=== PATIENT | female | born 1950 | race Caucasian/White ===

== ENCOUNTER 2022-11-07 08:18 | Outpatient (OUT) | payer MEDICARE, SELFPAY ==
[2022-11-07 09:18] LABS: Hematocrit 39.5 % (36.0-48.0); Hemoglobin 12.7 g/dL (12.0-16.0)
[2022-11-07 09:38] LABS: Creatinine Urine Random 129.87 mg/dL (20.00-300.00); Total Protein Urine Random 26.5 mg/dL (<=11.9)
[2022-11-07 09:57] LABS: Albumin Level 3.4 g/dL (3.4-5.0); Anion Gap 13.3; BUN Creatinine Ratio 14.2; Calcium 8.8 mg/dL (8.5-10.1); Carbon Dioxide 27.9 mmol/L (21.0-32.0); Chloride 105 mmol/L (98-107); Estimated GFR (African America 54 (>=60); Estimated GFR (Non-African Ame 44 (>=60); Glucose 102 mg/dL (74-106); Magnesium 2.1 mg/dL (1.8-2.4); Phosphorus 3.6 mg/dL (2.6-4.7); Potassium 4.2 mmol/L (3.5-5.1); Sodium 142 mmol/L (136-145); Uric Acid 4.6 mg/dL (2.6-6.0)
[2022-11-07 13:10] LABS: Bilirubin Urine NEGATIVE (NEGATIVE); Blood Urine TRACE-I (NEGATIVE); Clarity Urine CLEAR (CLEAR); Color Urine LT. YELLOW (YELLOW); Glucose Urine UA NEGATIVE (NEGATIVE); Ketones Urine NEGATIVE (NEGATIVE); Leukocyte Esterase Urine MODERATE (NEGATIVE); Nitrite Urine NEGATIVE (NEGATIVE); Protein Urine NEGATIVE (NEG/TRACE); Specific Gravity Urine 1.025 (1.005-1.025); Urobilinogen Urine 0.2 EU/dL (0.2-1.0); pH Urine 5.5 (5.0-9.0)
[2022-11-07 13:18] LABS: Bacteria Urine TRACE #/HPF (NONE SEEN); Cast Seen? NONE SEEN #/LPF (NONE SEEN); Crystals Seen? None Seen #/HPF (None Seen); Mucus Urine NONE SEEN (NONE SEEN); RBC Urine 0-2 #/HPF (0-2); Squamous Epithelial Cell Urine FEW #/LPF (NONE/RARE); WBC Urine 0-2 #/HPF (NONE SEEN)
[2022-11-08 14:12] LABS: PTH, Intact 47 pg/mL (15-65)
== END 2022-11-07 08:19 | disposition home or self-care (01) ==
LOC: LAB 08:24
PROVIDERS: PCP Nurse Practitioner Family; Visit Provider Internal Medicine
DX: I12.9 Hypertensive chronic kidney disease with stage 1 through stage 4 chronic kidney disease, or unspecified chronic kidney disease (principal); N18.32 Chronic kidney disease, stage 3b; N25.81 Secondary hyperparathyroidism of renal origin; D63.1 Anemia in chronic kidney disease; E78.5 Hyperlipidemia, unspecified; R31.29 Other microscopic hematuria; E61.1 Iron deficiency
CPT/HCPCS: 36415; 80069; 81001; 82306; 82570; 82728; 83540; 83550; 83735; 83970; 84156; 84550; 85014; 85018

== ENCOUNTER 2023-02-14 10:10 | Emergency (ER) | payer MEDICARE, SELFPAY ==
[2023-02-14 10:13] VITALS: BP 154/87; PULSE 82; RESP 20; TEMP 36.8; O2SAT 96; BMI 28.3
--- NOTE | 2023-02-14 10:20 | PC.NURSE ---
Complains of pain to top of right foot. No redness, bruising or swelling noted. Patient denies injury and states it just hurt when I woke up .
--- NOTE | 2023-02-14 10:22 | XR_ITS ---
The [address] [address] Patient Name: KAREEN HADLEY MRN: [id number] date: 1950 Sex: F Assigned Patient Location: ED.MAIN Current Patient Location: ED.MAIN Accession/Order Number: [id number] Exam Date: 02/14/2023 10:30 Report Date: 02/14/2023 10:49 At the request of: MICHAELA CASTILLO Procedure: XR foot RT min 3V PROCEDURE: XR foot RT min 3V HISTORY: mid foot pain ; no known injury COMPARISON: None. FINDINGS: BONES:No fracture, acute abnormality, or significant arthropathy. SOFT TISSUES:No visible soft tissue swelling. EFFUSION:None visible. OTHER: Negative. XR/XR foot RT min 3V IMPRESSION: 1. No acute bone abnormality. 2. No significant degenerative changes. Electronically authenticated by: STEPHEN ROBLES Date: 02/14/2023 10:49
--- NOTE | 2023-02-14 10:23 | ED.EXTPRO1 ---
HPI - Extremity Problem General Chief complaint: Extremity Problem, Nontraumatic Stated complaint: RIGHT FOOT PAIN, MOM TRAUMATIC Time Seen by Provider: 02/14/23 10:18 Source: patient Mode of arrival: walk-in Limitations: no limitations History of Present Illness HPI Narrative: yesterday the patient got up from a nap and when she went to stand up she felt sharp pain to the top of the right foot. She said that the pain has conitinued to occur intermittently since then but it does hurt every time I walk . It is painful to the touch but not swollen, red and has no rash. No recent injury. She took nothing for the pain. Related Data Home Medications Medication Instructions Recorded Confirmed alendronate 70 mg tablet 70 mg PO .every week 02/14/23 02/14/23 bupropion HCl 300 mg 24 hr tablet, 300 mg PO QWEEK 02/14/23 02/14/23 extended release levothyroxine 150 mcg tablet 150 mcg PO DAILY 02/14/23 02/14/23 losartan 100 mg tablet 100 mg PO DAILY 02/14/23 02/14/23 lovastatin 40 mg tablet 40 mg PO BEDTIME 02/14/23 02/14/23 montelukast 10 mg tablet 10 mg PO DAILY 02/14/23 02/14/23 omeprazole 40 mg capsule,delayed 40 mg PO DAILY 02/14/23 02/14/23 release raloxifene 60 mg tablet 60 mg PO DAILY 02/14/23 02/14/23 tizanidine 4 mg tablet 4 mg PO DAILY 02/14/23 02/14/23 trazodone 50 mg tablet 50 mg PO BEDTIME 02/14/23 02/14/23 Allergies Allergy/AdvReac Type Severity Reaction Status Date / Time No Known Drug Allergies Allergy Verified 02/14/23 10:17 Exam Narrative Exam Narrative: Nurses notes and vital signs reviewed and patient is not hypoxic. afebrile General: Well-appearing and in no apparent distress. Skin: Warm, dry, no pallor noted. No rash. Cardiovascular: Normal peripheral perfusion. Respiratory: No accessory muscle use or respiratory distress. Musculoskeletal: Focal tenderness to the dorsal mid foot. No swelling, erythema or warmth. No right heel tenderness or tenderness along the metatarsals of the right foot. Right ankle and toes of the right foot with normal ROM, no calf or popliteal tenderness, no lower extremity edema/swelling Neurological: A&O x4. No cranial nerve dysfunction observed. No truncal ataxia. Moves all extremities. Sensation intact. Psychiatric: Cooperative and interactive. Normal mood and affect. Constitutional Vital Signs, click to edit/add: Last Vital Signs Temp 98.2 F 02/14/23 10:13 Pulse 82 02/14/23 10:13 Resp 20 02/14/23 10:13 BP 154/87 H 02/14/23 10:13 Pulse Ox 96 02/14/23 10:13 O2 Del Method Room Air 02/14/23 10:13 Course Vital Signs Vital signs: Vital Signs Temperature 98.2 F 02/14/23 10:13 Pulse Rate 82 02/14/23 10:13 Respiratory Rate 20 02/14/23 10:13 Blood Pressure 154/87 H 02/14/23 10:13 Pulse Oximetry 96 02/14/23 10:13 Oxygen Delivery Method Room Air 02/14/23 10:13 Temperature 98.2 F 02/14/23 10:13 Pulse Rate 82 02/14/23 10:13 Respiratory Rate 20 02/14/23 10:13 Blood Pressure 154/87 H 02/14/23 10:13 Pulse Oximetry 96 02/14/23 10:13 Oxygen Delivery Method Room Air 02/14/23 10:13 MDM - Extremity (Nontraumatic) MDM Narrative Medical decision making narrative: uric acid negative. Elevated CRP and ESR. Xrays without any worrisome changes. Patient informed of results and diagnosis discussed. Patient given oral motrin in ED and then IM solumedrol before discharge home. She can take tylenol or additional ibuprofen for the pain, which should improve with rest. Lab Data Attestation: I reviewed the patient's lab results. Labs: Lab Results 02/14/23 Range/Units 10:34 ESR 94 H (<=30) mm/hr Uric Acid 5.1 (2.6-6.0) mg/dL C-Reactive Protein 1.1 H (<=1.0) mg/dL Imaging Data xr foot: Radiologist's impression: Patient Name: KAREEN HADLEY MRN: [id number] date: 1950 Sex: F Assigned Patient Location: ED.MAIN Current Patient Location: ED.MAIN Accession/Order Number: [id number] Exam Date: 02/14/2023 10:30 Report Date: 02/14/2023 10:49 At the request of: MICHAELA CASTILLO Procedure: XR foot RT min 3V PROCEDURE: XR foot RT min 3V HISTORY: mid foot pain ; no known injury COMPARISON: None. FINDINGS: BONES:No fracture, acute abnormality, or significant arthropathy. SOFT TISSUES:No visible soft tissue swelling. EFFUSION:None visible. OTHER: Negative. IMPRESSION: 1. No acute bone abnormality. 2. No significant degenerative changes. Electronically authenticated by: STEPHEN ROBLES Date: 02/14/2023 10:49 Discharge Plan Discharge Chief Complaint: Extremity Problem, Nontraumatic Clinical Impression: Acute foot pain Patient Disposition: Home, Self-Care Time of Disposition Decision: 11:06 Prescriptions / Home Meds: No Action alendronate 70 mg tablet 70 mg PO .every week bupropion HCl 300 mg tablet extended release 24 hr 300 mg PO QWEEK levothyroxine 150 mcg tablet 150 mcg PO DAILY losartan 100 mg tablet 100 mg PO DAILY lovastatin 40 mg tablet 40 mg PO BEDTIME montelukast 10 mg tablet 10 mg PO DAILY omeprazole 40 mg capsule,delayed release(DR/EC) 40 mg PO DAILY tizanidine 4 mg tablet 4 mg PO DAILY trazodone 50 mg tablet 50 mg PO BEDTIME raloxifene 60 mg tablet 60 mg PO DAILY Instructions: Arthralgia (ED) Stand Alone Forms: Portal Instructions Referrals: DAYANA LOPEZ [Primary Care Provider] - 1 week
[2023-02-14 10:45] LABS: Erythrocyte Sedimentation Rate 94 mm/hr (<=30)
[2023-02-14] MEDS: IBUPROFEN 600 MG TABLET PO (10:49)
[2023-02-14 10:54] LABS: C Reactive Protein 1.1 mg/dL (<=1.0); Uric Acid 5.1 mg/dL (2.6-6.0)
[2023-02-14] MEDS: METHYLPREDNISOLONE SOD SUCC PF 125 MG/2 ML VIAL IM (11:16)
== END 2023-02-14 11:29 | disposition home or self-care (01) ==
PROVIDERS: Emergency Provider Emergency Medicine; PCP Nurse Practitioner Family
DX: M79.671 Pain in right foot (principal); Z79.899 Other long term (current) drug therapy; Z79.890 Hormone replacement therapy
CPT/HCPCS: 36415; 73630; 84550; 85652; 86140; 96372; 99284; J2930

== ENCOUNTER 2023-03-04 12:07 | Emergency (ER) | payer MEDICARE, SELFPAY ==
[2023-03-04] VITALS (20 sets, daily range): BP systolic 156; BP diastolic 97; PULSE 89–118; RESP 8–26; TEMP 36.6; O2SAT 97; BMI 28.2
--- NOTE | 2023-03-04 12:27 | XR_ITS ---
The [address] [address] Patient Name: KAREEN HADLEY MRN: [id number] date: 1950 Sex: F Assigned Patient Location: ER Current Patient Location: ER Accession/Order Number: [id number] Exam Date: 03/04/2023 13:06 Report Date: 03/04/2023 13:17 At the request of: HOLLIS REYNOLDS Procedure: XR chest 1V EXAM: XR chest 1V at 1305 hours HISTORY: cough, shortness of breath, Covid two weeks ago COMPARISON: None. TECHNIQUE: AP upright portable chest X FINDINGS: The heart is not enlarged and the vasculature is not distended. No acute infiltrate, effusion or pneumothorax is identified. The osseous structures are grossly intact. XR/XR chest 1V IMPRESSION: No acute infiltrate or evidence of cardiac decompensation. Direct comparison with a previous study may be helpful in determining the chronicity of these findings. Electronically authenticated by: KAMI MART Date: 03/04/2023 13:17
--- NOTE | 2023-03-04 12:27 | ECG_ITS ---
The [facility] Test Date: 2023-03-04 Pat Name: KAREEN HADLEY Department: Room: - Gender: Female [employer]: : 1950 Requested By: DAYANA LOPEZ Order Number: [id number] Reading MD: KEM LAMBERT Measurements Intervals [place] Rate: 90 P: 19 [place]: 156 QRS: -20 QRSD: 84 T: 30 QT: 340 QTc: 387 Interpretive Statements 1100 Sinus rhythm 1108 Marked sinus arrhythmia 3113 Cannot rule out anterior myocardial infarction, probably old 9150 abnormal ECG No previous ECG available for comparison Electronically Signed On 03-05-2023 6:55:02 EST by KEM LAMBERT
--- NOTE | 2023-03-04 12:28 | ED_ITS ---
HPI - URI/Sore Throat General Chief Complaint: Nausea/Vomiting/Diarrhea Stated Complaint: NAUSEA Time Seen by Provider: 03/04/23 12:21 Source: patient Limitations: no limitations History of Present Illness HPI Narrative: 72-year-old female presents for cough and shortness of breath. About two weeks ago she tested positive for Covid and seemed to be recovering. Three days ago she developed this cough and shortness of breath and she's been vomiting. She's been coughing up white phlegm, no hemoptysis. Related Data Home Medications Medication Instructions Recorded Confirmed alendronate 70 mg tablet 70 mg PO .every week 02/14/23 02/14/23 bupropion HCl 300 mg 24 hr tablet, 300 mg PO QWEEK 02/14/23 02/14/23 extended release levothyroxine 150 mcg tablet 150 mcg PO DAILY 02/14/23 02/14/23 losartan 100 mg tablet 100 mg PO DAILY 02/14/23 02/14/23 lovastatin 40 mg tablet 40 mg PO BEDTIME 02/14/23 02/14/23 montelukast 10 mg tablet 10 mg PO DAILY 02/14/23 02/14/23 omeprazole 40 mg capsule,delayed 40 mg PO DAILY 02/14/23 02/14/23 release raloxifene 60 mg tablet 60 mg PO DAILY 02/14/23 02/14/23 tizanidine 4 mg tablet 4 mg PO DAILY 02/14/23 02/14/23 trazodone 50 mg tablet 50 mg PO BEDTIME 02/14/23 02/14/23 Allergies Allergy/AdvReac Type Severity Reaction Status Date / Time No Known Drug Allergies Allergy Verified 03/04/23 12:12 Review of Systems ROS Narrative A ten point review of systems is negative except as noted above. Exam Narrative Exam Narrative: Nurses note and vital signs reviewed and patient is not hypoxic. General: The patient coughs frequently. She is not in respiratory distress. Skin: Warm, dry, no pallor noted. There is no rash noted. Head: Normocephalic, atraumatic Eye: Normal conjunctiva, no drainage Ears, Nose, Mouth, and Throat: oral mucosa is moist. Nares patent. Cardiovascular: Regular Rate and Rhythm Respiratory: Patient is in no distress, no accessory muscle use, lungs are clear to auscultation, no wheezing, rales or rhonchi Back: non-tender, no CVA tenderness bilaterally to percussion. GI: nontender Musculoskeletal: The patient has no evidence of calf tenderness, no pitting edema, symmetrical pulses noted bilaterally Neurological: A&O, normal speech Psychiatric: Cooperative Constitutional Vital Signs, click to edit/add: Last Vital Signs Temp 98 F 03/04/23 15:22 Pulse 91 H 03/04/23 15:30 Resp 25 H 03/04/23 15:30 BP 156/97 H 03/04/23 12:13 Pulse Ox 97 03/04/23 12:12 O2 Del Method Room Air 03/04/23 12:12 Course Vital Signs Vital signs: Vital Signs Pulse Rate 118 H 03/04/23 12:12 Respiratory Rate 18 03/04/23 12:12 Blood Pressure 156/97 H 03/04/23 12:12 Pulse Oximetry 97 03/04/23 12:12 Oxygen Delivery Method Room Air 03/04/23 12:12 Temperature 98 F 03/04/23 15:22 Pulse Rate 91 H 03/04/23 15:30 Respiratory Rate 25 H 03/04/23 15:30 Blood Pressure 156/97 H 03/04/23 12:13 Pulse Oximetry 97 03/04/23 12:12 Oxygen Delivery Method Room Air 03/04/23 12:12 MDM - URI/Sore Throat MDM Narrative Medical decision making narrative: blood work is appropriate. No evidence of pulmonary embolism but on the CAT scan she has numerous pulmonary nodules. Case is discussed with Dr. Ledbetter and follow- up is arranged with him. Most likely the nodules are due to the very recent Covid. She does not need to be admitted to the hospital this point and an antibiotic is not indicated. Treatment diagnosis and follow-up were discussed with the patient. Differential Diagnosis Differential diagnosis: Likely upper respiratory infection, viral infection, bronchitis and other (pulmonary embolism, pneumothorax) Lab Data Attestation: I reviewed the patient's lab results. Labs: Lab Results 03/04/23 03/04/23 Range/Units 12:47 13:18 WBC 13.9 H (4.0-11.0) 10^3/uL RBC 4.26 (4.20-5.40) 10^6/uL Hgb 11.9 L (12.0-16.0) g/dL Hct 37.3 (36.0-48.0) % MCV 87.6 (81.0-99.0) fL MCH 27.9 (26.7-34.0) pg MCHC 31.9 (29.9-35.2) g/dL RDW 13.2 (11.0-15.0) % Plt Count 353 (150-450) 10^3/uL MPV 10.5 (9.5-13.5) fL Neut % (Auto) 67.8 (43.0-75.0) % Lymph % (Auto) 14.5 L (20.5-60.0) % [place] % (Auto) 7.2 (1.7-12.0) % Eos % (Auto) 9.4 H (0.9-7.0) % Baso % (Auto) 0.7 (0.2-2.0) % Neut # (Auto) 9.4 H (1.4-6.5) 10^3/uL Lymph # (Auto) 2.0 (1.2-3.8) 10^3/uL [place] # (Auto) 1.0 H (0.3-0.8) 10^3/uL Eos # (Auto) 1.3 H (0.0-0.7) 10^3/uL Baso # (Auto) 0.1 (0.0-0.1) 10^3/uL Abs Immat Gran (auto) 0.06 H (0.00-0.03) 10^3/uL Imm/Tot Granulo (auto) 0.4 (0.0-0.5) % D-Dimer 0.86 H* (<=0.59) mg/L FEU Sodium 137 (136-145) mmol/L Potassium 4.2 (3.5-5.1) mmol/L Chloride 99 (98-107) mmol/L Carbon Dioxide 25.5 (21.0-32.0) mmol/L Anion Gap 16.7 BUN 13.0 (7.0-18.0) mg/dL Creatinine 1.32 H (0.55-1.02) mg/dL Est GFR ( Amer) 48 L (>=60) Est GFR (Non-Af Amer) 40 L (>=60) BUN/Creatinine Ratio 9.8 Glucose 101 (74-106) mg/dL Calcium 8.3 L (8.5-10.1) mg/dL Urine Color Yellow (YELLOW) Urine Clarity Clear (CLEAR) Urine pH 7.0 (5.0-9.0) Ur Specific [place] 1.015 (1.005-1.025) Urine Protein 30 A (NEG/TRACE) mg/dL Urine Glucose (UA) Negative (NEGATIVE) mg/dL Urine Ketones Trace A (NEGATIVE) mg/dL Urine Occult Blood Moderate A (NEGATIVE) Urine Nitrite Negative (NEGATIVE) Urine Bilirubin Negative (NEGATIVE) Urine Urobilinogen 1.0 (0.2-1.0) EU/dL Ur Leukocyte Esterase Negative (NEGATIVE) Urine RBC 2-5 A (0-2) #/HPF Urine WBC 0-2 A (NONE SEEN) #/HPF Ur Squamous Epith Cells Few A (NONE/RARE) #/LPF Urine Crystals None seen (None Seen) #/HPF Urine Bacteria None seen (NONE SEEN) #/HPF Urine Casts None seen (NONE SEEN) #/LPF Urine Mucus Trace A (NONE SEEN) Imaging Data chest x-ray, CAT scan: Radiologist's impression: Procedure: CT angio chest EXAM: CT angio chest HISTORY: short of breath, recent Covid, elevated d-dimer COMPARISON: 12/27/2018 TECHNIQUE: Axial CT images were obtained of the chest with intravenous contrast in the pulmonary arterial phase. Multiplanar, MIP and 3D reconstructions were performed. CHEST FINDINGS: Lungs/Pleura: There are numerous pulmonary nodules throughout the lungs. The dominant nodules in the right middle lobe measuring 2.2 x 1.5 cm. Other pulmonary nodules are smaller in size, for example in the right lower lobe on image 65 of series 5 a nodule measures 8.7 mm. No pleural effusion or pneumothorax. Pulmonary Arteries: No evidence of pulmonary embolus. Cardiovascular: The heart is normal in size. The aorta is unremarkable. Pericardium: No effusion. Mediastinum: Unremarkable. Lymph Nodes: Multiple mediastinal and hilar lymph nodes are abnormally enlarged. For example, in the precarinal region a lymph node measures 2.2 x 1.4 cm. An infracarinal lymph node measures 3.4 x 1.7 cm. A right hilar lymph node measures 1.5 x 1.4 cm. Bones: No acute osseous abnormality. Soft tissues: Unremarkable. Upper Abdomen: There is a small hiatal hernia. IMPRESSION: 1. No pulmonary embolus identified. 2. Numerous pulmonary nodules throughout the lungs, concerning for possible metastatic disease. Alternatively, septic emboli can be considered in the appropriate clinical setting. The dominant nodule is in the right middle lobe, and in the setting of malignancy may represent the site of primary disease. 3. Multiple enlarged mediastinal and hilar lymph nodes, possibly due to metastatic disease or reactive changes. Electronically authenticated by: KANDACE LAMAS Date: 03/04/2023 14:36 Procedure: XR chest 1V EXAM: XR chest 1V at 1305 hours HISTORY: cough, shortness of breath, Covid two weeks ago COMPARISON: None. TECHNIQUE: AP upright portable chest X FINDINGS: The heart is not enlarged and the vasculature is not distended. No acute infiltrate, effusion or pneumothorax is identified. The osseous structures are grossly intact. IMPRESSION: No acute infiltrate or evidence of cardiac decompensation. Direct comparison with a previous study may be helpful in determining the chronicity of these findings. Electronically authenticated by: KAMI MART Date: 03/04/2023 13:17 Discharge Plan Discharge Chief Complaint: Nausea/Vomiting/Diarrhea Clinical Impression: Indeterminate pulmonary nodules Patient Disposition: Home, Self-Care Time of Disposition Decision: 15:43 Condition: Good Mode of Transportation: Private Vehicle Prescriptions / Home Meds: No Action alendronate 70 mg tablet 70 mg PO .every week bupropion HCl 300 mg tablet extended release 24 hr 300 mg PO QWEEK levothyroxine 150 mcg tablet 150 mcg PO DAILY losartan 100 mg tablet 100 mg PO DAILY lovastatin 40 mg tablet 40 mg PO BEDTIME montelukast 10 mg tablet 10 mg PO DAILY omeprazole 40 mg capsule,delayed release(DR/EC) 40 mg PO DAILY tizanidine 4 mg tablet 4 mg PO DAILY trazodone 50 mg tablet 50 mg PO BEDTIME raloxifene 60 mg tablet 60 mg PO DAILY Instructions: COVID-19 (Coronavirus Disease 2019) (ED), Long COVID (ED) Additional Instructions: Follow-up with Dr. Ledbetter Stand Alone Forms: Portal Instructions Referrals: DAYANA LOPEZ [Primary Care Provider] - 1 week
[2023-03-04] MEDS: 0.9 % SODIUM CHLORIDE 1,000 ML 1000 ML IV (12:53)
[2023-03-04] MEDS: ONDANSETRON PF 4 MG/2 ML VIAL IV (12:54)
[2023-03-04 13:01] LABS: Basophils Absolute Auto 0.1 10^3/uL (0.0-0.1); Basophils Percent Auto 0.7 % (0.2-2.0); Eosinophils Absolute Auto 1.3 10^3/uL (0.0-0.7); Eosinophils Percent Auto 9.4 % (0.9-7.0); Hematocrit 37.3 % (36.0-48.0); Hemoglobin 11.9 g/dL (12.0-16.0); Immature Granulocytes Abs Auto 0.06 10^3/uL (0.00-0.03); Immature Granulocytes Pct Auto 0.4 % (0.0-0.5); Lymphocytes Percent Auto 14.5 % (20.5-60.0); Mean Corpuscular HGB Conc 31.9 g/dL (29.9-35.2); Mean Corpuscular Hemoglobin 27.9 pg (26.7-34.0); Mean Corpuscular Volume 87.6 fL (81.0-99.0); Mean Platelet Volume 10.5 fL (9.5-13.5); Monocytes Percent Auto 7.2 % (1.7-12.0); Neutrophils Absolute Auto 9.4 10^3/uL (1.4-6.5); Neutrophils Percent Auto 67.8 % (43.0-75.0); Platelet Count 353 10^3/uL (150-450); Red Blood Count 4.26 10^6/uL (4.20-5.40); Red Cell Distribution Width 13.2 % (11.0-15.0); White Blood Count 13.9 10^3/uL (4.0-11.0)
[2023-03-04 13:11] LABS: Anion Gap 16.7; BUN Creatinine Ratio 9.8; Calcium 8.3 mg/dL (8.5-10.1); Carbon Dioxide 25.5 mmol/L (21.0-32.0); Chloride 99 mmol/L (98-107); Estimated GFR (African America 48 (>=60); Estimated GFR (Non-African Ame 40 (>=60); Glucose 101 mg/dL (74-106); Potassium 4.2 mmol/L (3.5-5.1); Sodium 137 mmol/L (136-145)
[2023-03-04 13:25] LABS: Bilirubin Urine NEGATIVE (NEGATIVE); Blood Urine MODERATE (NEGATIVE); Clarity Urine CLEAR (CLEAR); Color Urine YELLOW (YELLOW); Glucose Urine UA NEGATIVE (NEGATIVE); Ketones Urine TRACE mg/dL (NEGATIVE); Leukocyte Esterase Urine NEGATIVE (NEGATIVE); Nitrite Urine NEGATIVE (NEGATIVE); Protein Urine 30 mg/dL (NEG/TRACE); Specific Gravity Urine 1.015 (1.005-1.025)
--- NOTE | 2023-03-04 13:29 | CT_ITS ---
The [address] [address] Patient Name: KAREEN HADLEY MRN: [id number] date: 1950 Sex: F Assigned Patient Location: ER Current Patient Location: ER Accession/Order Number: [id number] Exam Date: 03/04/2023 13:50 Report Date: 03/04/2023 14:36 At the request of: HOLLIS REYNOLDS Procedure: CT angio chest EXAM: CT angio chest HISTORY: short of breath, recent Covid, elevated d-dimer COMPARISON: 12/27/2018 TECHNIQUE: Axial CT images were obtained of the chest with intravenous contrast in the pulmonary arterial phase. Multiplanar, MIP and 3D reconstructions were performed. CHEST FINDINGS: Lungs/Pleura: There are numerous pulmonary nodules throughout the lungs. The dominant nodules in the right middle lobe measuring 2.2 x 1.5 cm. Other pulmonary nodules are smaller in size, for example in the right lower lobe on image 65 of series 5 a nodule measures 8.7 mm. No pleural effusion or pneumothorax. Pulmonary Arteries: No evidence of pulmonary embolus. Cardiovascular: The heart is normal in size. The aorta is unremarkable. Pericardium: No effusion. Mediastinum: Unremarkable. Lymph Nodes: Multiple mediastinal and hilar lymph nodes are abnormally enlarged. For example, in the precarinal region a lymph node measures 2.2 x 1.4 cm. An infracarinal lymph node measures 3.4 x 1.7 cm. A right hilar lymph node measures 1.5 x 1.4 cm. Bones: No acute osseous abnormality. Soft tissues: Unremarkable. Upper Abdomen: There is a small hiatal hernia. CT/CT angio chest IMPRESSION: 1. No pulmonary embolus identified. 2. Numerous pulmonary nodules throughout the lungs, concerning for possible metastatic disease. Alternatively, septic emboli can be considered in the appropriate clinical setting. The dominant nodule is in the right middle lobe, and in the setting of malignancy may represent the site of primary disease. 3. Multiple enlarged mediastinal and hilar lymph nodes, possibly due to metastatic disease or reactive changes. Electronically authenticated by: KANDACE LAMAS Date: 03/04/2023 14:36
[2023-03-04 13:30] LABS: D Dimer 0.86 mg/L FEU (<=0.59)
[2023-03-04 13:34] LABS: Bacteria Urine NONE SEEN #/HPF (NONE SEEN); Mucus Urine TRACE (NONE SEEN); Squamous Epithelial Cell Urine FEW #/LPF (NONE/RARE); WBC Urine 0-2 #/HPF (NONE SEEN)
[2023-03-04 13:35] LABS: Cast Seen? NONE SEEN #/LPF (NONE SEEN); Crystals Seen? None Seen #/HPF (None Seen)
== END 2023-03-04 15:53 | disposition home or self-care (01) ==
PROVIDERS: Emergency Provider Emergency Medicine; PCP Nurse Practitioner Family
DX: R91.8 Other nonspecific abnormal finding of lung field (principal); Z86.16 Personal history of COVID-19; Z79.899 Other long term (current) drug therapy; Z79.890 Hormone replacement therapy
CPT/HCPCS: 36415; 71045; 71275; 80048; 81001; 85025; 85378; 93005; 96361; 96374; 99285; Q9967

== ENCOUNTER 2023-04-03 09:56 | Outpatient (OUT) | payer MEDICARE, SELFPAY ==
[2023-04-03 10:11] LABS: Estimated GFR (African America 45 (>=60); Estimated GFR (Non-African Ame 37 (>=60)
--- NOTE | 2023-04-03 10:15 | CT_ITS ---
[address] [address] Patient Name: KAREEN HADLEY MRN: [id number] date: 1950 Sex: F Assigned Patient Location: CT Current Patient Location: CT Accession/Order Number: [id number] Exam Date: 04/03/2023 10:20 Report Date: 04/03/2023 11:12 At the request of: APRIL ZIMMERMAN Procedure: CT chest w con EXAMINATION: CT chest w con HISTORY: Nonspecific Abnormal Finding Of The Lung R91.8 ; follow-up lung nodules COMPARISON: CTA chest 03/04/2023 TECHNIQUE: Multi-planar CT images were obtained without and/or with IV contrast as indicated by examination type. Axial, Coronal, and Sagittal images. Dose reduction techniques were achieved by using automated exposure control and/or adjustment of mA and/or kV according to patient size and/or use of iterative reconstruction technique. FINDINGS: LUNGS: 2 adjacent poorly defined 18 mm areas of increased density within the right middle lobe; one is new and the other is smaller than previously seen.. Several tiny nodular opacities 5 mm or less in size scattered within the lungs, with clearing of the vast majority of the previously seen poorly marginated nodules/infiltrates/inflammatory changes. PLEURA: No mass, effusion, or pneumothorax. VASCULATURE: No abnormality. KATY: No mass or adenopathy. MEDIASTINUM: No mass or adenopathy. CARDIAC: No enlargement, pericardial thickening, or significant calcification. AORTA: No aneurysm or dissection. CHEST WALL: No mass or axillary adenopathy. BONES: No bone lesion or fracture. LIMITED ABDOMEN: Grossly stable large cyst from superior pole of right kidney; this is incompletely included but the visible portion favors benign etiology. Limited images of the upper abdomen. OTHER: Negative. CT/CT chest w con IMPRESSION: 1. Clearing of the vast majority of previously seen irregular opacities/nodules within the lungs suggesting resolved infiltrates/inflammatory process. 2. Several nodules remain, but are smaller. Follow-up CT chest in 1-2 months is recommended to document clearing. 3. New 18 mm opacity/lesion within right middle lobe adjacent another 18 mm lesion which has decreased in size. Given the changes in the rest of the lung disease also likely representing infectious/inflammatory etiology. Follow-up CT chest in one-2 months is recommended. Electronically authenticated by: STEPHEN ROBLES Date: 04/03/2023 11:12
[2023-04-06 19:08] LABS: Coccidioides Ab, IgG, EIA 2.3 EIA Units (.); Coccidioides Ab, IgM, EIA 2.6 EIA Units (.)
== END 2023-04-03 09:57 | disposition home or self-care (01) ==
LOC: CT 09:56
PROVIDERS: PCP Nurse Practitioner Family; Visit Provider Internal Medicine
DX: R91.8 Other nonspecific abnormal finding of lung field (principal); R59.0 Localized enlarged lymph nodes
CPT/HCPCS: 36415; 71260; 82565; 86635; Q9967

== ENCOUNTER 2023-05-15 10:19 | Outpatient (OUT) | payer MEDICARE, SELFPAY ==
--- OUTSIDE RECORDS SUMMARY | 2023-05-15 10:24 | XMS_ITS | CCD ---
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 Operator Name Role Phone Dionne, Audie Unavailable DAYANA PEPPER Primary Care Physician [phone] MD AUDIE TRUONG Referring Unavailable Iván TOMLIN Attending Unavailable Iván TOMLIN Referring Unavailable Iván TOMLIN Attending Unavailable Iván TOMLIN Admitting Unavailable DAYANA LOPEZ Attending Unavailable JOHN, DAYANA Admitting Unavailable JOHN, DAYANA Primary Care Unavailable DAYANA LOPEZ Consulting Unavailable DAYANA LOPEZ Attending Unavailable JOHN, DAYANA Admitting Unavailable JOHN, DAYANA Primary Care Unavailable TOMLIN ., DR FALCON Admitting Unavailable TOMLIN ., DR FALCON Consulting Unavailable TOMLIN ., DR FALCON Attending Unavailable JOHN, DAYANA Primary Care Unavailable Danielle Cam Consulting Unavailable JOHN, DAYANA Primary Care Unavailable DIONNE, AUDIE Admitting Unavailable DIONNE, AUDIE Consulting Unavailable DIONNE, AUDIE Attending Unavailable DAYANA LOPEZ Attending Unavailable UTE, DR MONTENEGRO Referring Unavailable JOHN, DAYANA Admitting Unavailable JOHN, DAYANA Primary Care Unavailable STEPHEN ROBLES Consulting Unavailable JOHN, DAYANA Consulting Unavailable DIONNE, AUDIE Admitting Unavailable DIONNE, AUDIE Consulting Unavailable DIONNE, AUDIE Attending Unavailable JOHN, DAYANA Primary Care Unavailable Allergies Allergy Classification Reported Allergen(s) Allergy Type Date of Onset Reaction(s) Facility (1 source) No Known Medication Allergies; Translations: [No Known Medication Allergies] Propensity to adverse reactions (disorder) [facility] Repository Medications Current Medications Medication Drug Class(es) Dates Sig (Normalized) Sig (Original) alendronic acid 70 mg oral tablet (6 sources) Bisphosphonate take 1 tablet by mouth every week Alendronate Sodium 70 MG 1 Tablet orally weekly Active aspirin 81 mg oral tablet (2 sources) Platelet Aggregation Inhibitor, Nonsteroidal Anti-inflammatory Drug Start: 01-01-2019 take 1 tablet by mouth once daily aspirin 81 mg oral tablet 81 mg = 1 tab(s), Oral, Daily Start Date: 01/01/19 Status: Ordered 24 hr buPROPion hydrochloride 300 mg extended release oral tablet (6 sources) Aminoketone take 1 tablet by mouth every twenty-four hours buPROPion HCl ER (XL) 300 MG 1 tablet in the morning Orally Once a day Active cetirizine hydrochloride 10 mg oral tablet (3 sources) Histamine-1 Receptor Antagonist take 1 tablet by mouth every twenty-four hours Cetirizine HCl 10 MG 1 tablet Orally Once a day Active dicyclomine hydrochloride 20 mg oral tablet (2 sources) Anticholinergic Start: 01-01-2019 take 1 tablet by mouth four times daily dicyclomine 20 mg Tab 20 mg = 1 tab(s), Oral, QID Start Date: 01/01/19 Status: Ordered Excedrin Migraine (2 sources) Start: 01-01-2019 take 2 tablets by mouth every six hours Excedrin Migraine 2 tab(s), Oral, q6hr Start Date: 01/01/19 Status: Ordered ferrous sulfate (2 sources) take 1 tablet by mouth once daily Ferrous Sulfate 325 (65 Fe) MG 1 tablet Orally Once a day Active take 1 tablet by lester th every twenty-four hours Ferrous Sulfate 325 (65 Fe) MG 1 tablet Orally Once a day Active fluticasone 0.05 mg/inh Nasal [place] (2 sources) Start: 01-01-2019 take 2 spray(s) nasal route once daily fluticasone 0.05 mg/inh Nasal [place] 2 spray(s), Nasal, Daily, each nostril Start Date: 01/01/19 Status: Ordered Grape Seed Complex - (3 sources) take 300 mg by mouth once daily Grape Seed Complex - 300mg Orally daily Active Hydrochlorothiazide-25 mg 25 MG (3 sources) take 1 tablet by mouth once daily in the morning Hydrochlorothiazi de-25 mg 25 MG 1 tablet in the morning Orally Once a day Active hyoscyamine sulfate 0.125 mg oral tablet (2 sources) Start: 01-01-2019 take 1 tablet by mouth four times daily hyoscyamine 0.125 mg oral Tab 0.125 mg = 1 tab(s), Oral, QID, Refills(s) 0 Start Date: 01/01/19 Status: Ordered Iron 100 Plus (2 sources) Start: 07-02-2022 Iron 100 Plus Refill(s) 0 Start Date: 07/02/22 Status: Ordered losartan potassium 100 mg oral tablet (8 sources) Angiotensin 2 Receptor [place] Start: 01-01-2019 take 1 tablet by mouth once daily losartan 100 mg Tab 100 mg = 1 tab(s), Oral, Daily Start Date: 01/01/19 Status: Ordered lovastatin 40 mg oral tablet (8 sources) HMG-CoA Reductase Inhibitor Start: 01-01-2019 take 1 tablet by mouth once daily lovastatin 40 mg Tab 40 mg = 1 tab(s), Oral, Daily Start Date: 01/01/19 Status: Ordered metoprolol tartrate 25 mg oral tablet (2 sources) beta-Adrenergic [place] Start: 01-01-2019 take 1 tablet by mouth twice daily Metoprolol tartrate 25 mg Tab 25 mg = 1 tab(s), Oral, BID Start Date: 01/01/19 Status: Ordered montelukast 10 mg oral tablet (8 sources) Leukotriene Receptor Antagonist Start: 01-01-2019 take 1 tablet by mouth once daily in the evening montelukast 10 mg Tab 10 mg = 1 tab(s), Oral, qPM Start Date: 01/01/19 Status: Ordered MSM 500 MG (6 sources) take 1 capsule by mouth once daily MSM 500 MG 1 Capsule Orally daily Active Multi Vitamin/Minerals - (3 sources) Multi Vitamin/Minerals - as directed Orally Active Multivitamin Adult - (3 sources) take 1 tablet by mouth once daily Multivitamin Adult - 1 tablet Orally daily Active omeprazole 40 mg delayed release oral capsule (6 sources) Proton Pump Inhibitor take 1 capsule by mouth every twenty-four hours Omeprazole 40 MG 1 Capsule orally daily Active ondansetron 4 mg oral tablet (2 sources) Serotonin-3 Receptor Antagonist Start: 01-01-2019 take 1 tablet by mouth four times daily Zofran ODT 4 mg Tab 4 mg = 1 tab(s), Oral, QID Start Date: 01/01/19 Status: Ordered pantoprazole 40 mg delayed release oral tablet (2 sources) Proton Pump Inhibitor Start: 01-01-2019 take 1 tablet by mouth once daily Pantoprazole [address] Tab 40 mg = 1 tab(s), Oral, Daily Start Date: 01/01/19 Status: Ordered PARoxetine hydrochloride 20 mg oral tablet (2 sources) Serotonin Reuptake Inhibitor Start: 01-01-2019 take 1 tablet by mouth once daily in the morning paroxetine 20 mg Tab 20 mg = 1 tab(s), Oral, qAM Start Date: 01/01/19 Status: Ordered microencapsulated potassium chloride 20 meq extended release oral tablet (3 sources) take 1 tablet by mouth every twenty-four hours Klor-Con M20 20 MEQ 1 tablet with food Orally Once a day Active raloxifene hydrochloride 60 mg oral tablet (6 sources) Estrogen Agonist/Antagonis t take 1 tablet by mouth every twenty-four hours Raloxifene HCl 60 MG 1 Tablet orally Daily Active Vitamin B 12 500 MCG (4 sources) take 1 tablet by mouth once daily Vitamin B 12 500 MCG 1 tablet Orally Once a day Active ZOLMitriptan 5 mg oral tablet (2 sources) Serotonin-1b and Serotonin-1d Receptor Agonist Start: 01-01-2019 take 1 tablet by mouth once daily Zomig 5 mg Tab See Instructions, tab(s) mg Oral Daily Start Date: 01/01/19 Status: Ordered Completed/Discontinued Medications Medication Drug Class(es) Dates Sig (Normalized) Sig (Original) ciprofloxacin 500 mg oral tablet (2 sources) Quinolone Antimicrobial Start: 07-02-2022 take 1 tablet by mouth once daily Cipro 500 mg Tab 500 mg = 1 tab(s), Oral, Daily, Take 1 tablet the day before the procedure and 1 tablet after the procedure, # 2 tab(s), Refills(s) 0, Pharmacy: [facility]/pharmacy #[id number], 162, cm, 07/02/22 14:24:00 EDT, Height/Length Dosing, 74, kg, 07/02/22 14:24:00 EDT, W... Start Date: 07/02/22 Status: Ordered levothyroxine sodium 0.125 mg oral capsule (8 sources) l-Thyroxine Start: 01-01-2019 take 1 capsule by mouth once daily levothyroxine 125 mcg (0.125 mg) oral capsule 125 microgram = 1 cap(s), Oral, Daily Start Date: 01/01/19 Status: Ordered take 1 tablet by lester th every twenty-four hours Levothyroxine Sodium 150 MCG 1 Tablet orally daily Active take 1 tablet by lester th every twenty-four hours Levothyroxine Sodium 125 MCG 1 Tablet orally daily Active Problems Active Problems Problem Classification Problem Date Documented Date Episodic/Chronic Abdominal pain (4 sources) Epigastric pain; Translations: [Periumbilical pain] 01-06-2019 Episodic Anxiety disorders (6 sources) Anxiety; Translations: [Anxiety disorder, unspecified] Chronic Biliary tract disease (2 sources) Biliary calculus 01-06-2019 Episodic Chronic kidney disease (12 sources) Chronic kidney disease stage 3; Translations: [Chronic kidney disease, stage 3 (moderate)] Chronic Deficiency and other anemia (3 sources) Anemia of renal disease; Translations: [Anemia in chronic kidney disease] Chronic Deficiency and other anemia (2 sources) Anemia in chronic kidney disease; Translations: [ANEMIA IN CHRONIC KIDNEY DISEASE] Onset: 2 Resolved: 2 Chronic Diabetes mellitus without complication (11 sources) Prediabetes; Translations: [Prediabetes] Onset: 2 Episodic Disorders of lipid metabolism (18 sources) Mixed hyperlipidemia; Translations: [Mixed hyperlipidemia] Onset: 1 Resolved: 2 Chronic Esophageal disorders (2 sources) Gastroesophageal reflux disease 01-06-2019 Chronic Essential hypertension (8 sources) Hypertensive disorder; Translations: [Essential (primary) hypertension] 01-06-2019 Chronic Genitourinary symptoms and ill-defined conditions (7 sources) Other microscopic hematuria; Translations: [Microscopic hematuria] Onset: 3 Episodic Hypertension with complications and secondary hypertension (16 sources) Chronic kidney disease due to hypertension; Translations: [Hypertensive chronic kidney disease with stage 1 through stage 4 chronic kidney disease, or unspecified chronic kidney disease] Onset: 1 Resolved: 2 Chronic Mood disorders (6 sources) Depressive disorder; Translations: [Major depressive disorder, single episode, unspecified] Chronic Noninfectious gastroenteritis (2 sources) Colitis 01-06-2019 Episodic Nutritional deficiencies (2 sources) Iron deficiency Episodic Osteoporosis (9 sources) Osteoporosis; Translations: [Age-related osteoporosis without current pathological fracture] Onset: 1 Resolved: 2 Chronic Other diseases of kidney and ureters (6 sources) Secondary hyperparathyroidism; Translations: [Secondary hyperparathyroidism of renal origin] Chronic Other diseases of kidney and ureters (6 sources) Secondary hyperparathyroidism of renal origin; Translations: [SEC HYPERPARATHYROIDISM RENAL ORIGN] Onset: 1 Resolved: 2 Chronic Other diseases of kidney and ureters (1 source) Cyst of kidney, acquired; Translations: [CYST OF KIDNEY ACQUIRED] Onset: 3 Episodic Other gastrointestinal disorders (2 sources) Alteration in bowel elimination 01-06-2019 Episodic Other nutritional; endocrine; and metabolic disorders (6 sources) Obesity; Translations: [Obesity, unspecified] Chronic Other nutritional; endocrine; and metabolic disorders (6 sources) Metabolic syndrome X; Translations: [Metabolic syndrome] Chronic Other nutritional; endocrine; and metabolic disorders (2 sources) Body mass index 30+ - obesity 01-06-2019 Chronic Other screening for suspected conditions (not mental disorders or infectious disease) (2 sources) CT of abdomen abnormal 01-06-2019 Episodic Other upper respiratory infections (4 sources) Chronic sinusitis, unspecified; Translations: [CHRONIC SINUSITIS UNSPECIFIED] Onset: 2 Chronic Thyroid disorders (8 sources) Hypothyroidism; Translations: [Hypothyroidism, unspecified] 01-06-2019 Chronic Past or Other Problems Problem Classification Problem Date Documented Da te Episodic/Chronic Chronic kidney disease (12 sources) Chronic kidney disease; Translations: [Chronic kidney disease, stage 3 unspecified] Onset: 03-27-2021 Resolved: 11-21-2021 Deficiency and other anemia (1 source) Anemia, unspecified; Translations: [ANEMIA UNSPECIFIED] Onset: 11-17-2021 Episodic Results Test Name Value Interpretation Reference Range Facility Coding Summary.on 07-19-2022 Coding Summary. [id number] Ww+PGhlYWQ+TJ7AQKFdU 89niTKquG9cV3GQAJoES ywgQVBQTElOSyIgbmFtZ T3zhPRvIEPq IC8+EO0xUNZtUsabsMUt x5D4wOA7T76cfl3lRUap uRW7LRUmRhLojgcxv2rr bFu8NWidDugzEcDw KZCggK16KXD1kC73Ul10 xTRspROnt9hniZz7DgKh HMJaVMB6oWtiORenz7Go YEOqA76urXQcp1V1 IGNvbGxhcHNlOyBlbXB0 eI6aCEttaouit3vkvtoc Dhu4wi82xPYhq2A3lOQ0 X4MqhhZ2NQChgNZw TwgzsJJLzJ8mfxxej4ba qjflCiXuMBDhKCd2JSd4 QOXiwUmnWdWgYD23LWY6 XSUrplTbV3CfHISb dAeuDuO0x8I9Hg6TR3MC LijfN6EEOXKPYPnqtMY+ SA93nn05T9PtAqvgUln0 EDLbDLK7tZX9eB8z DBWkSRkwd4C1pGB2A0Xf coKsla4uc4yrSCOsOMez A25jcFOmj8I9UOKplUN6 REShcRaoJkHbwO48 Oyc+NUTjqKfvq4RlIwqr n6ksx8biuSv4NuysMJFp bbQjxVxwUIG9o6XvOg1r VAUxuJQ2wPB9eN9u DxPoQyF3ISypO616ApDg rYBxKepxF80mN1YmpBG+ XRQfMcs0KKEkwYlxEN4n Q1XsVSJqtmgaoSJk lWhjDY4lPMElmehxXMUp nL6tLESaO9s5SwYhBlB0 TWbdF6GxQKWcsnyxDc21 xD7tBfDbCtN4TSyf Z3UmguV7JKFjfPCzQTcv XYR6U10ku1V7OGAtNDQg LWM6fWH9pN2wbBjlnkaq bGVmdDsgdmVydGlj ZCkvWKemE565NAGehImc PkNvZGluZyBEYXRlOiAg MDMvMzAvMjAyMzwvdGQ+ OQKwOAS0sGwmGXKh aLFqKWdjQu7zzSmosAed UQ4qTTSpszrkEBGvpB7y GCJitLWhgOypNC8bWYQm olqfh671ZqDpZOJ3 TELrbERkJ0IrgY5bFzWv RXEkIDEdL1PkxIOcSIvp S130YVelCoK9EJKbdrOi Q3LcGHBwlBfnWrR1 k6I9Kx7Yb5FovzfdT1Wp bZSpNeXcIuecIUm8C4Ep PjwvdHI+LG98QKUnRI06 NZq7PNS5fZppLAsl MQRaG1KhhL1zXrCjWBAz ZGRkOyc+PHRhYmxlIHdp ZHRoPScxMDAlJyBzdHls HZ9lJe6cTPFrZSQy zBazqKXnZhOmo6vdMTKu CVttMX4frTglG9CmbPC8 JHDhv1o2Vm56I40lY5Lv dXA+JPUiiCE0uPC4 tD6wDaCnElR9PNtaO775 RiZbkCHkQumhp2nrh9vu yUr9TiV8JPAilbRatMxu OKS9b9WfJv43G96g IHdpZHRoPSIxNSUiIHZh mQsymv5dxR3tFh8+PGNv sAI7nPK4vE1jDmUjPaT5 JLfxL020JuAhyWMe Riisn6dlo6ujbLr7YrTn SDPsywHybYrmUCV0y7Rl Ih07G1QwqSobr3VqRif6 ti31cLPrp8L3pDF2 Z0BvBIJjkjoutWUjePxt GA5wDPDekjsyQCPhlN9t WVNpK3p3XmLcCrB0DGqc Q7KemhY1ZBZftHBp AHQdkXLDjW3arimir3jf kpgnCzAuOSIwCXo2ZBe5 AYOmoFklNwPrLYW1AcW5 NVG2mUGahA1gcTeq udbdfK6wGnz+CTE7tJOz gDLLIK1vHyrxmII+PHRk TZZ2oCukEEebYKIhpZ6u GGXuH2k5NqJyUrM3 YHftO3DzayL2DDZtpQFg QJKnxLWKoX4dlpros5wk yjbxFqNtYXEgBAa6GGe4 LWFsaWduOiBsZWZ0 NaK7YCW2vCDcfA0erIxo tfdczV1rKpe+QmlydGgg JNG1XSa7O7EmDtr6KLKa aNazIT6fzFGuRHnk Xh6srFxyfDysRX6xTKFm rxqhr795UlJgv0awDXRe oNIxWFwjOGL7I97gm4O5 HKCrTQPvAEB9jTU9 gH2ybTvlyfudoDYecMdw qrHcuWylVBmtUIbcU986 AFXjqQixPlCfWGs7M0Xv Qra8ZHKtpEhnYU2d gTKfPQxqMl0cjZtdkNix SK0hYVXdcoair686QlTo c9qqQGXoePNdIZhpJVL3 T77mx1A3XQRtNJGb XZN1yBN2tR2giYozvier bGVmdDsgdmVydGljYWwt WXucL298LAXvaVfmOqUn dTk5Y4FzPtr5DMJc uBxyFO1csDXdMYkyKs4f oHkfyAfuOU9eHCAiztiq w695GqQgh3hnNZWcfFMn PLcaEXS3M79oy7Z0 LXOhIDHqLVC7rCP8cY0k bGlnbjogbGVmdDsgdmVy nWqeNLfmPWaeQ408BPJf cDsnPlBhdGllbnQg UUohEDs8Z2EpGjoqtJQ+ CH06GYLoUJ29aFPrtNUp v6xpiPn6WaUpNULlLJA4 zUdiNZtgr4TkUIPw P72oxOXze1L7BMTfjTru cTPrLuVaqJO0fZ6xZJwf wvcmq1qrhqpgBumtw3gw wk26fT52N69wDLvb ZHRoPSIzMCUiIHZhbGln oy1wfV6bNe0+PGNvbCB3 oAA4wE4yXQLaYaY0HEwu Q071SgRkaCAxNwwl w7wsd3wfuRn2NdA2ZRAy ubMipTbqJMZ5t1ItAs43 W80aRCjfTAPwQGFzEGGj ZMLphGrdum8azN4v Ii8+PSMkdFS9rDC4kO0r EdTfLrR2RHamT967ZyQf hWVtPqaeU20oO3VzuQY+ MHOnVcn2TSHzmJjs SB9rwRQtFXiqPo3xSWF9 CaGdPtUbPOeeC6FvHHJv lpacuyrvwUQ2FGUqRVVy xD20Eo5skYrzBQVt tPQWlA6usczbi1rzeyep PnKpKHFuPOc8UUk9MYFv pWhkIkVpVZS3RpU3DLD2 fZZzmS7wdZliwkpc vT3fN6FfIASehnnzCj11 mM2qKmBeFcQ3OYefLcy+ H9LJKkXTNJKNAESSK3GQ TkUgQTwvdGQ+PHRk WQC7oOwhXOzgMKYpyF9e YMQhN9s6LrHiMrQ0SGfc W1WuKJLrhrryQr67zW4l DxHkXgE8EHxyB6Ec xeQ5KLMhkQQzBTadDFW3 Q97dn4M8GBWtYSDuCMQ1 yFY7uK4pgWmqecacgSZz dDsgdmVydGljYWwt VZotW490MIZtrWxfAsRo GaOtSoR3KPX7C7SnGzg8 JFHmzVouBO9wqSPjPTwe Fy9loXtzkTbcUO4m BJXnqhdrDNXywK2vECCk sVJbuFqbRQ3wYBTmkwpq v330UkFaDRD3CVItpVSo E6XwwR0dIfHaBBJl JKWpJ9UioIZxUIiyD603 RNeoUpU6VYIlwiYvM3Tq VBYncBaeDhF9r1X6Rr32 MCBZZWFyczwvdGQ+ BICqJMV2xAshQHleOGFs fM5qQYLaW8t5FrVuLgW7 GUncO5GsDSFsghmjIm67 bC2oJdZdJkL9LIzu P9IvvsG8IZXzaJMqORui TPM5V27qw5R2WFYeTJSu AUC4kZW6rG6qjMefslax bGVmdDsgdmVydGlj CDmdPPfiH363DKVruSlp PkZlbWFsZTwvdGQ+PHRk OSY9aQqeHZlkFNZczX2q NCRyK6z3UeVdUsZ4 ZOfpR4ZfNVVjythcEd64 wQ3uMmMwTbZ4NYscO7Fh fiD6HMBmnTLbVOcfZYU2 L06re5J2FSHvGFEs NOS6oMR4bT8rpMzknjpj bGVmdDsgdmVydGljYWwt RJqaN212IAFuwOinWw92 nWJtwAbgiwD9V6Bs PjwvdHI+OM26NHGzNF13 dHPttABxf0mufGt8SlOn BHAzVWT2pMiqDGpva7Rc BJRwG02zfLZvc1F1 IGNvbGxhcHNlOyBlbXB0 wL4lLTggvnlsc3dcsmod Ihwow3fiil25yM36V08y IHdpZHRoPSIzMCUi WAKdePvmwe7pkX1fAi4+ XUCjtYV4fRV9zA4tFtPn QqE4LExoU608SyFtrMPc Mpizg1mry4penUp1 IjIwJSIgdmFsaWduPSJ0 t0BkXi63D60dOHsjOZFt LIOiDNBvONWknRxubd0x kP5lVp4+IQ5ga6og bf67cP31nER+PHRkIHN0 yPezYOaeQLWhbE8oEYhh GmQ2CZBgWyHupC93nQEf BOwaJz1tsKfyrKii BJ1ySUImkfnsu406SoXm f6loOHTuzFEzRIfuGCU4 C74tp0N7HIAuXBGtXJQ2 rUC4aH0jqYuhhlwu bGVmdDsgdmVydGljYWwt MXwrM679MBVtzEwdLsOe gUAzJ8lxupYPUI2pWziq dGQ+KEMrLWE1tMyy LTxgRVXzcW2wOKTcU2q7 PnFfZeO0SDdyF2OtejF4 RMLxqXPoDLMchZRCkM5s asroq6jchxkcFyVq TSQmYXx9FNh9KBWttFur ImZpKFJ6MiJ7DVG6nHBr gS6guBjllqguyY1aPuv+ RklOOjwvdGQ+PHRk PNG9hWsxSAmfKGRmzB0r DTYdA4p9BiBrRdG3BCbs E1KvkgW1DXJlwEIaUTEh gSGPbW0guybhm7sy hzxiQhTeKOJuYFc5IWu5 EYSlcPmcEvHsHPO1SlO6 RUF0uCRtkT2giKqnfbtg uY3hGcl+TVJOOjwv dGQ+VNRkXHR8xKxdEBvo CIUoxV3aOHGtC4f0YvIo WoD1NVjqJ6TlysJ2VERr lGMxIZJgvABKwH8c npzuw1gzcybcPgCpUYOk PNe3UGi3SAGfnVkcCvNs TPD1WmT5YFM3hTPhfY2m ePznceyhuK8zDqs+ SVP6YRX1HT37UO30G0Tf PjwvdGFibGU+PHRhYmxl IHdpZHRoPScxMDAlJyBz iZweSW0tLj7tYEPj LWNvbGxh (more content not included)... Normal [facility] Consent for Procedure/Surger yon 07-17-2022 Consent for Procedure/Surgery [id number]#[id number]:127 [facility] Consent for Treatmenton 03-2 Consent for Treatment [id number] #[id number]:127 [facility] IntraOperative Documentson 0 07-17-2022 IntraOperative Documents [id number]#1.00CD:127 [facility] Main OR Intraoperative Recor don 07-17-2022 Main OR Intraoperative Record IntraOp Document Type FTURO Summary Primary Physician: Iván TOMLIN MD Finalized Date/Time: 07/17/22 09:10:19 Pt. Name: PEG HADLEY/Sex: 1950 Female Med Rec #: [id number] Physician: Iván TOMLIN MD Financial #: [id number] Pt. Type: O Room/Bed: / Admit/Disch: 07/17/22 08:15:03 - Institution: Case Times FTURO Entry 1 Patient Times In Room 07/17/22 09:02:00 Out Room 07/17/22 09:15:00 Procedure Times Start 07/17/22 09:05:00 Stop 07/17/22 09:10:00 Anesthesia Times Last Modified By: Kusum BELL, DEDRA, Stefani 07/17/22 09:08:13 Case Attendance FTURO Entry 1 Entry 2 Entry 3 Case Attendee KELLY BLACKMON, Iván Noe RN, KRISTIANOR, Lorraine BARNES, Palma Ko Role Performed Surgeon - Primary Garden Labourer - Primary Scrub - Primary Time In 07/17/22 09:02:00 07/17/22 09:02:00 07/17/22 09:02:00 Time Out 07/17/22 09:15:00 07/17/22 09:15:00 07/17/22 09:15:00 Procedure CYSTOSCOPY LOCAL(.) CYSTOSCOPY LOCAL(.) CYSTOSCOPY LOCAL(.) Comments Last Modified By: Kusum RN, CNOR, Kusum RN, KRISTIANOR, Kusum RN, KRISTIANOR, Stefani 07/17/22 Stefani 07/17/22 Stefani 07/17/22 09:08:16 09:08:16 09:08:16 Surgical Procedures FTURO Entry 1 Procedure Description Procedure CYSTOSCOPY LOCAL Modifiers . Surgeon Description cysto Primary Procedure Yes Primary Surgeon Iván TOMLIN MD Start 07/17/22 09:05:00 Stop 07/17/22 09:10:00 Anesthesia Type Local Surgical Service Urology Wound Class 2 - Clean-Contaminated Last Modified By: DEDRA Noe RN, Ruthann 07/17/22 09:08:19 General Case Data FTURO Pre-Care Text: Classifies surgical wound, implements aseptic technique, initiates traffic control Entry 1 Case Information OR URO 1 FT Case Level None Wound Class 2 - Clean-Contaminated Specialty Urology Preop Diagnosis HEMATURIA Postop Same As Preop No Postop Diagnosis clear bladder Outcomes Met? Yes Last Modified By: DEDRA Noe RN, Ruthann 07/17/22 09:08:36 Post-Care Text: The patient is free from signs and symptoms of infection EU IntraOp - FTURO Pre-Care Text: Implements protective measures prior to operative or invasive procedure, confirms identity before the operative or invasive procedure, verifies operative procedure, surgical site, and laterality Entry 1 EU Perioperative Protocols Procedure(s) CYSTOSCOPY LOCAL(.) Patient Identity Birthday, ID Band Verified (select at Check, Patient least 2): Participation Consents / H and P HandP, Surgery/Procedure Operative Site N/A Verified Consent Marking Verified Surgical Site Yes Laterality Verified n/a Verified Procedure Verified Yes Correct Patient Yes Position Verified Availability Equipment, Medication Time Out Iván TOMLIN MD, Verified (If Participants DEDRA Noe RN, Applicable) Lorraine Ko CST, Julie A Time Out Complete 07/17/22 09:03:00 Allergies Reviewed? Yes Allergies Reviewed Self/Patient With Body Position Frog Legged Prep Area perineal area Prep Agents None Skin. Condition Unable to Visualize Additional None Specimens Collected Vitals - EU Blood Pressure 135/82 Pulse 65 bpm Respirations 16 br/min SPO2 EBL 0 IandO - EU Total Intake 0 mL Total Output 0 mL Outcomes Met? Yes Last Modified By: DEDRA Noe RN, Ruthann 07/17/22 09:07:29 Post-Care Text: The patient is free from signs and symptoms of injury caused by extraneous objects Sign Out FTURO Entry 1 Before Patient Leaves OR Nurse verbally Yes Nurse verbally n/a confirms with the confirms with the team the name of team that the procedure(s) instrument, sponge, recorded and needle counts are correct (or N/A) Nurse verbally n/a Nurse verbally n/a confirms with the confirms with the team how the team whether there specimen is labeled are any equipment (including patient problems to be name), if applicable addressed Sign Out Complete 07/17/22 09:12:00 Last Modified By: DEDRA Noe RN, Ruthann 07/17/22 09:10:17 Case Comments Finalized By: DEDRA Noe RN, Ruthann Document Signatures Signed By: DEDRA Noe RN, Ruthann 07/17/22 09:10 Normal [facility] Main OR Preoperative Recordo n 07-17-2022 Main OR Preoperative Record Holding Area Document Type FTURO Summary Primary Physician: Iván TOMLIN MD Finalized Date/Time: 07/17/22 09:04:54 Pt. Name: PEG HADLEY/Sex: 1950 Female Med Rec #: [id number] Physician: Iván TOMLIN MD Financial #: [id number] Pt. Type: O Room/Bed: / Admit/Disch: 07/17/22 08:15:03 - Institution: Case Times Holding FTURO Pre-Care Text: Verifies consent for planned procedure, identifies individual values and wishes concerning care, includes family members in perioperative teaching Secures patient's records' belongings, and valuables, maintains patient's dignity and privacy, and maintains patient confidentiality Entry 1 In Holding 07/17/22 08:37:00 Outcomes Met? Yes Last Modified By: Maeve Florian LPN 07/17/22 08:37:32 Post-Care Text: The patient participates in decisions affecting his or her perioperative plan of care The patient's right to privacy is maintained Surgery Checklist [facility] Entry 1 Patient Birthday, Patient Procedure History and Physical, Identification: Participation Verification: Surgical Consent NPO after Midnight: No Date/Time: 07/17/22 08:38:00 Personal Items: Jewelry Personal Items clothes Comment: Limitations: na Complaints of Pain: No Pain Comment: na Skin Integrity Intact, [place], Warm, & Dry Vitals - EU Blood Pressure 135/82 Pulse 65 bpm Respirations 16 br/min SPO2 96 % RN Reviewed Yes Last Modified By: DEDRA Noe RN, Ruthann 07/17/22 09:04:49 General Comments: temp:36.4 Finalized By: DEDRA Noe RN, Ruthann Document Signatures Signed By: Maeve Florian LPN 07/17/22 08:41 DEDRA Noe RN, Ruthann 07/17/22 09:04 Normal [facility] Operative Reporton Operative Report Patient: PEG HADLEY Age: 72 years Sex: Female : 1950 Associated Diagnoses: None Author: Iván TOMLIN MD Procedure Operative Information Details: Date/ Time: 07/17/2022 09:12:00. Pre-Op Dx: Micro Hematuria - Asymptomatic - R31.21. Post-Op Dx: Same. Anesthesia Type: Local. Procedure: Local Cystoscopy. Complications: None. Risks/Benefits/Infor med Consent: Surgical risks, benefits, details of the procedure have been explained to the patient, Full informed consent has been obtained. Intraoperative Information Prepped: Patient is brought back to the endoscopy suite, Patient is placed in modified dorso/lithotomy position, Patient prepped in the usual fashion with Betadine solution, 2% Xylocaine Jelly is placed per Urethra, After waiting several minutes the Cystoscope is introduced. The Urethra is: Carbuncle approximately 1 cm protruding from the 4 o'clock position.. The Bladder is: Normal, No ROBBIE, prolapse or atrophic vaginitis.. The ureteral orifices: Show efflux of clear urine. Devices Implanted: None. Removal: Cystoscope is removed, The patient tolerated it well. Postoperative Information Discharge: Patient is discharged home with antibiotic coverage, Follow up arranged. She will follow-up on a as needed basis.. Normal [facility] Comment on above: Result Comment: Elec tronically Signed By: vIán TOMLIN MD\.br\Date and Time Signed: 07/17/22 09:13 EDT RAD - Ultrasound Reporton RAD - Ultrasound Report [id number] #1.00CD:127 Normal [facility] Urine Cytology ([facility])on 0 07-09-2022 Urine Cytology Diagnosis Info Invalid Interpretation Code [facility] Comment on above: Result Comment: A:Ur ine,Urine:Voided Interpretation - MicroScopic Description - Adequacy - Gross Description Site ID:A color Light Yellow fixative Alcohol Specimen designated Urine received in alcohol preservative and labeled with the patient?s name, consists of 40ml clear light yellow fluid. Electronically signed by : on: 07/09/2022 15:10:50 Performed By: #### 1 [id number] ####[facility] [address] [place] [address] US KIDNEYSon 07-07-2022 US KIDNEYS EXAM: US KIDNEYS HISTORY: . Microscopic hematuria . COMPARISON: None. TECHNIQUE: Grayscale and color imaging was performed FINDINGS: Scanning of the right kidney demonstrates right kidney measure 9 x 4.9 x 4.5 cm. Color-flow is noted. No hydronephrosis is noted. Renal cortical echotexture is unremarkable. There is a 5.2 x 3.7 cm cyst involving the upper pole of the right kidney. There is a second 1.5 x 1.3 cm cyst involving the mid upper pole of the right kidney. Left kidney measures 9.2 x 4.5 x 4.9 cm. Color-flow is noted. Renal cortical echotexture is unremarkable. There are 2 simple cyst involving the left kidney measuring 1.5 x 1.4 and 1.7 x 1.3 cm. The filled bladder demonstrates no masses. Bladder volume is 147 mL. IMPRESSION: 1. Simple cysts involving both kidneys. No solid renal cortical masses or hydronephrosis. 2. Normal-appearing filled bladder. Electronically authenticated by: DANIELLE CAM Date: 2022-07-07 10:33 Normal [facility] Formson 07-03-2022 Forms [id number] #1.00CD:127 Normal [facility] Physician Referralon 023 Physician Referral [id number] #1.00CD:127 Normal [facility] Pre-Certification Formon Pre-Certification Form [id number]#1.00CD:127 Normal [facility] Ambulatory Visit Summaryon 0 07-02-2022 Ambulatory Visit Summary PEG HADLEY :1950 Visit Date:07/02/2022 Ambulatory Visit Instructions Your Diagnosis Microscopic hematuria Tests Performed Urnls Dip Stick Auto w/o Microscopy POC 22876 US Renal -- Results Pending -- Please visit your patient portal for your results or contact your primary care physician. Your Care Team Attending Physician - Iván TOMLIN MD Primary Care Physician - DAYANA PEPPER CNP Referring Physician - AUDIE TRUONG MD This Is Your Medications List Contact prescribing physician if questions or concerns APAP/ASA/caffeine (Excedrin Migraine) aspirin (aspirin 81 mg oral tablet) dicyclomine (dicyclomine 20 mg Tab) fluticasone nasal (fluticasone 0.05 mg/inh Nasal [place]) hyoscyamine (hyoscyamine 0.125 mg oral Tab) levothyroxine (levothyroxine 125 mcg (0.125 mg) oral capsule) losartan (losartan 100 mg Tab) lovastatin (lovastatin 40 mg Tab) metoprolol (Metoprolol tartrate 25 mg Tab) montelukast (montelukast 10 mg Tab) multivitamin with iron (Iron 100 Plus) ondansetron (Zofran ODT 4 mg Tab) pantoprazole (Pantoprazole [address] Tab) paroxetine (paroxetine 20 mg Tab) zolmitriptan (Zomig 5 mg Tab) Procedures Performed Esophagogastroduoden oscopy (01/08/2019), Abdominal hysterectomy, Appendectomy, Colonoscopy. Discharge Vitals Heart Rate (Peripheral) 71 Blood Pressure 128/88 Height 162 cm Height 64 in Weight 74 kg Weight 162.8 lb BMI 28.2 What to do next You Need to Schedule the Following Appointments Follow Up with KELLY BLACKMON, SHI Mckeon When: Where: [facility] [address] , [place] [address]- Medications What How Much When Instructions Unchanged APAP/ ASA/ caffeine (Excedrin Migraine) 2 Tablets By Mouth Every 6 hours Contact prescribing physician if questions or concerns Unchanged aspirin (aspirin 81 mg oral tablet) 1 Tablets By Mouth Every day Contact prescribing physician if questions or concerns Unchanged dicyclomine (dicyclomine 20 mg Tab) 1 Tablets By Mouth 4 times a day Contact prescribing physician if questions or concerns Unchanged fluticasone nasal (fluticasone 0.05 mg/ inh Nasal [place]) 2 Sprays Nasal Inhalation Every day each nostril Contact prescribing physician if questions or concerns Unchanged hyoscyamine (hyoscyamine 0.125 mg oral Tab) 1 Tablets By Mouth 4 times a day Contact prescribing physician if questions or concerns Unchanged levothyroxine (levothyroxine 125 mcg (0.125 mg) oral capsule) 1 Capsules By Mouth Every day Contact prescribing physician if questions or concerns Unchanged losartan (losartan 100 mg Tab) 1 Tablets By Mouth Every day Contact prescribing physician if questions or concerns Unchanged lovastatin (lovastatin 40 mg Tab) 1 Tablets By Mouth Every day Contact prescribing physician if questions or concerns Unchanged metoprolol (Metoprolol tartrate 25 mg Tab) 1 Tablets By Mouth 2 times a day Contact prescribing physician if questions or concerns Unchanged montelukast (montelukast 10 mg Tab) 1 Tablets By Mouth Once a day (in the evening) Contact prescribing physician if questions or concerns Unchanged multivitamin with iron (Iron 100 Plus) Contact prescribing physician if questions or concerns Unchanged ondansetron (Zofran ODT 4 mg Tab) 1 Tablets By Mouth 4 times a day Contact prescribing physician if questions or concerns Unchanged pantoprazole (Pantoprazole [address] Tab) 1 Tablets By Mouth Every day Contact prescribing physician if questions or concerns Unchanged paroxetine (paroxetine 20 mg Tab) 1 Tablets By Mouth Once a day (in the morning) Contact prescribing physician if questions or concerns Unchanged zolmitriptan (Zomig 5 mg Tab) See instructions tab(s) mg Oral Daily Contact prescribing physician if questions or concerns Test Results Urnls Dip Stick Auto w/o Microscopy POC 42116 (07/02/2022) Bilirubin Urine Dipstick - Negative Blood Urine Dipstick - Trace-lysed Glucose Urine Dipstick - Negative Ketones Urine Dipstick - Negative Leukocytes Urine Dipstick - Negative Nitrite Urine Dipstick - Negative Protein Urine Dipstick - Negative Specific [place] [facility] Urine Dipstick - >=1.030 Urine Appearance Urine Dipstick - Clear Urine Color Urine Dipstick - Yellow Urobilinogen Urine Dipstick - Normal 0.2-1 EU/dl pH Urine Dipstick - 5 Allergies No Known Medication Allergies Problems Ongoing - Any problem that you are currently receiving treatment for. Abnormal abdominal CT scan BMI 30+ - obesity Change in bowel habits Cholelithiasis Chronic GERD Colitis Epigastric abdominal pain HTN - Hypertension Hypothyroidism Periumbilical abdominal pain Education Materials Hematuria, Adult Hematuria is blood in the urine. Blood may be visible in the urine, or it may be identified with a test. This condition can be caused by infections of the bladder, urethra, kidney, or prostate. Other possible causes include: ? (more content not included)... Normal [facility] Patient Educationon 07-03-19 Patient Education Urology Hematuria, Adult Hematuria is blood in the urine. Blood may be visible in the urine, or it may be identified with a test. This condition can be caused by infections of the bladder, urethra, kidney, or prostate. Other possible causes include: ? Kidney stones. ? Cancer of the urinary tract. ? Too much calcium in the urine. ? Conditions that are passed from parent to child (inherited conditions). ? Exercise that requires a lot of energy. Infections can usually be treated with medicine, and a kidney stone usually will pass through your urine. If neither of these is the cause of your hematuria, more tests may be needed to identify the cause of your symptoms. It is very important to tell your health care provider about any blood in your urine, even if it is painless or the blood stops without treatment. Blood in the urine, when it happens and then stops and then happens again, can be a symptom of a very serious condition, including cancer. There is no pain in the initial stages of many urinary cancers. Follow these instructions at home: Medicines ? Take lgkx-wkw-gdkymho and prescription medicines only as told by your health care provider. ? If you were prescribed an antibiotic medicine, take it as told by your health care provider. Do not stop taking the antibiotic even if you start to feel better. Eating and drinking ? Drink enough fluid to keep your urine clear or pale yellow. It is recommended that you drink 3?4 quarts (2.8?3.8 L) a day. If you have been diagnosed with an infection, it is recommended that you drink cranberry juice in addition to large amounts of water. ? Avoid caffeine, tea, and carbonated beverages. These tend to irritate the bladder. ? Avoid alcohol because it may irritate the prostate (men). General instructions ? If you have been diagnosed with a kidney stone, follow your health care provider's instructions about straining your urine to catch the stone. ? Empty your bladder often. Avoid holding urine for long periods of time. ? If you are female: ? After a bowel movement, wipe from front to back and use each piece of toilet paper only once. ? Empty your bladder before and after sex. ? Pay attention to any changes in your symptoms. Tell your health care provider about any changes or any new symptoms. ? It is your responsibility to get your test results. Ask your health care provider, or the department performing the test, when your results will be ready. ? Keep all follow-up visits as told by your health care provider. This is important. Contact a health care provider if: ? You develop back pain. ? You have a fever. ? You have nausea or vomiting. ? Your symptoms do not improve after 3 days. ? Your symptoms get worse. Get help right away if: ? You develop severe vomiting and are unable take medicine without vomiting. ? You develop severe pain in your back or abdomen even though you are taking medicine. ? You pass a large amount of blood in your urine. ? You pass blood clots in your urine. ? You feel very weak or like you might faint. ? You faint. Summary ? Hematuria is blood in the urine. It has many possible causes. ? It is very important that you tell your health care provider about any blood in your urine, even if it is painless or the blood stops without treatment. ? Take oimn-sae-pfwrazp and prescription medicines only as told by your health care provider. ? Drink enough fluid to keep your urine clear or pale yellow. This information is not intended to replace advice given to you by your health care provider. Make sure you discuss any questions you have with your health care provider. Document Released: 04/08/2006 Document Revised: 09/02/2019 Document Reviewed: 05/11/2017 Elsevier Patient Education ? 2019 [employer] Normal [facility] Urine Cytology ([facility])on 0 07-02-2022 UC Method of Extraction Voided Normal [facility] Comment on above: Performed By: #### 1 [id number] ####[facility] [address] [place] [address] Number of Jars 1 Invalid Interpretation Code [facility] Comment on above: Performed By: #### 1 [id number] ####[facility] [address] [place] [address] Specimen Urine Normal [facility] Comment on above: Performed By: #### 1 [id number] ####[facility] [address] [place] [address] Type of Service Technical Only Normal [facility] Comment on above: Performed By: #### 1 [id number] ####[facility] [address] [facility] [place] [address] PTH INTACTon 05-22-2022 PTH, Intact 75 pg/mL Critically high 15-65 [facility] Comment on above: Performed By: #### P THINT #### [facility] [address] [place] [address] Dr. Andrea Mccarthy FERRITINon 05-21-2022 Ferritin [Mass/Vol] 124.0 ng/mL Normal 8.0-252.0 [facility] Comment on above: Performed By: #### U KIM, MG, PHOS #### [facility] [address] [place] [address] Dr. Andrea Mccarthy HEMOGRAM AND PLATELon 2022 Hematocrit (Bld) [Volume fraction] 40.1 % Normal 36.0-48.0 [facility] Comment on above: Performed By: #### U KIM, MG, PHOS #### [facility] [address] [place] [address] Dr. Andrea Mccarthy Hemoglobin (Bld) [Mass/Vol] 13.2 g/dL Normal 12.0-16.0 [facility] Comment on above: Performed By: #### U KIM, MG, PHOS #### [facility] [address] [place] [address] Dr. Andrea Mccarthy MCH (RBC) [Entitic mass] 28.0 pg Normal 26.7-34.0 [facility] Comment on above: Performed By: #### U KIM, MG, PHOS #### [facility] [address] [place] [address] Dr. Andrea Mccarthy MCHC (RBC) [Mass/Vol] 32.9 g/dL Normal 29.9-35.2 [facility] Comment on above: Performed By: #### U KIM, MG, PHOS #### [facility] [address] [place] [address] Dr. Andrea Mccarthy MCV (RBC) [Entitic vol] 85.1 fL Normal 81.0-99.0 [facility] Comment on above: Performed By: #### U KIM, MG, PHOS #### [facility] [address] [place] [address] Dr. Andrea Mccarthy PLT 255 103/ul Normal 150-450 [facility] Comment on above: Performed By: #### U KIM, MG, PHOS #### [facility] [address] [place] [address] Dr. Andrea Mccarthy RBC 4.71 106/ul Normal 4.20-5.40 [facility] Comment on above: Performed By: #### U KIM, MG, PHOS #### [facility] [address] [place] [address] Dr. Andrea Mccarthy WBC 5.9 103/ul Normal 4.0-11.0 [facility] Comment on above: Performed By: #### U KIM, MG, PHOS #### [facility] [address] [place] [address] Dr. Andrea Mccarthy IRON AND TIBCon 05-21-2022 % SATURATION 18.5 % Normal [facility] Comment on above: Performed By: #### U KIM, MG, PHOS #### [facility] [address] [place] [address] Dr. Andrea Mccarthy Iron [Mass/Vol] 51.0 ug/dL Normal 50.0-170.0 [facility] Comment on above: Performed By: #### U KIM, MG, PHOS #### [facility] [address] [place] [address] Dr. Andrea Mccarthy TIBC DIRECT 276.0 ug/dL Normal 250.0-450.0 [facility] Comment on above: Performed By: #### U KIM, MG, PHOS #### [facility] [address] [address] [address] Andrea Mccarthy MAGNESIUMon 05-21-2022 Magnesium [Mass/Vol] 1.8 mg/dL Normal 1.8-2.4 [facility] Comment on above: Performed By: #### U KIM, MG, PHOS #### [facility] [address] [place] [address] Dr. Andrea Mccarthy RENAL FUNCTION PANELon 05-21 Albumin [Mass/Vol] 3.5 g/dL Normal 3.4-5.0 [facility] Comment on above: Performed By: #### U KIM, MG, PHOS #### [facility] [address] [place] [address] Dr. Andrea Mccarthy Calcium [Mass/Vol] 8.5 mg/dL Normal 8.5-10.1 [facility] Comment on above: Performed By: #### U KIM, MG, PHOS #### [facility] [address] [address] [address] Andrea Mccarthy Chloride [Moles/Vol] 104 mmol/L Normal 98-107 [facility] Comment on above: Performed By: #### U KIM, MG, PHOS #### [facility] [address] [address] [address] Andrea Mccarthy CO2 [Moles/Vol] 29.6 mmol/L Normal 21.0-32.0 [facility] Comment on above: Performed By: #### U KIM, MG, PHOS #### [facility] [address] [address] [address] Andrea Mccarthy Creatinine [Mass/Vol] 1.23 mg/dL Critically high 0.55-1.02 [facility] Comment on above: Performed By: #### U KIM, MG, PHOS #### [facility] [address] [address] [address] Andrea Mccarthy EGFR-AF BELGIAN 52 mL/min/1.73m2 Critically low >=60 [facility] Comment on above: Performed By: #### U KIM, MG, PHOS #### [facility] [address] [address] [address] Andrea Mccarthy EGFR-NON AF BELGIAN 43 mL/min/1.73m2 Critically low >=60 [facility] Comment on above: Performed By: #### U KIM, MG, PHOS #### [facility] [address] [address] [address] Andrea Mccarthy Glucose [Mass/Vol] 92 mg/dL Normal 74-106 [facility] Comment on above: Performed By: #### U KIM, MG, PHOS #### [facility] [address] [address] [address] Andrea Mccarthy Phosphate [Mass/Vol] 3.3 mg/dL Normal 2.6-4.7 [facility] Comment on above: Performed By: #### U KIM, MG, PHOS #### [facility] [address] [place] [address] Dr. Andrea Mccarthy Potassium [Moles/Vol] 3.9 mmol/L Normal 3.5-5.1 [facility] Comment on above: Performed By: #### U KIM, MG, PHOS #### [facility] [address] [place] [address] Dr. Andrea Mccarthy Sodium [Moles/Vol] 141 mmol/L Normal 136-145 [facility] Comment on above: Performed By: #### U KIM, MG, PHOS #### [facility] [address] [place] [address] Dr. Andrea Mccarthy Urea nitrogen [Mass/Vol] 25.0 mg/dL Critically high 7.0-18.0 [facility] Comment on above: Performed By: #### U KIM, MG, PHOS #### [facility] [address] [place] [address] Dr. Andrea Mccarthy UA RANDOM W/MICROSCOPICon BACTERIA NONE SEEN Normal NONE SEEN [facility] Comment on above: Performed By: #### U AMIC #### [facility] [address] [address] [address] Andrea Mccarthy Bilirubin Ql (U) Negative Normal NEGATIVE [facility] Comment on above: Performed By: #### U AMIC #### [facility] [address] [address] [address] Andrea Mccarthy CAST NONE SEEN Normal NONE SEEN [facility] Comment on above: Performed By: #### U AMIC #### [facility] [address] [address] [address] Andrea Mccarthy Clarity (U) CLEAR Normal CLEAR [facility] Comment on above: Performed By: #### U AMIC #### [facility] [address] [address] [address] Andrea Mccarthy Color (U) YELLOW Normal YELLOW [facility] Comment on above: Performed By: #### U AMIC #### [facility] [address] [address] [address] Andrea Mccarthy Crystals LM Nom (Urine sed) NONE SEEN Normal NONE SEEN [facility] Comment on above: Performed By: #### U AMIC #### [facility] [address] [address] [address] Andrea Mccarthy Epithelial cells LM Ql (Urine sed) FEW Abnormal NONE SEEN /RARE [facility] Comment on above: Performed By: #### U AMIC #### [facility] [address] [address] [address] Andrea Mccarthy Glucose Ql (U) Negative Normal NEGATIVE [facility] Comment on above: Performed By: #### U AMIC #### [facility] [address] [address] [address] Andrea Mccarthy Hemoglobin Ql (U) TRACE-INTACT Abnormal NEGATIVE [facility] Comment on above: Performed By: #### U AMIC #### [facility] [address] [address] [address] Andrea Mccarthy Ketones Ql (U) Negative Normal NEGATIVE [facility] Comment on above: Performed By: #### U AMIC #### [facility] [address] [address] [address] Andrea Mccarthy LEUKOCYTES Negative Normal NEGATIVE [facility] Comment on above: Performed By: #### U AMIC #### [facility] [address] [place] [address] Dr. Andrea Mccarthy MUCOUS TRACE Abnormal NONE SEEN [facility] Comment on above: Performed By: #### U AMIC #### [facility] [address] [place] [address] Dr. Andrea Mccarthy Nitrite Ql (U) Negative Normal NEGATIVE [facility] Comment on above: Performed By: #### U AMIC #### [facility] [address] [place] [address] Dr. Andrea Mccarthy pH (U) 5.0 [pH] Normal 5-9 [facility] Comment on above: Performed By: #### U AMIC #### [facility] [address] [place] [address] Dr. Andrea Mccarthy RBC 0-2 Normal 0-2 [facility] Comment on above: Performed By: #### U AMIC #### [facility] [address] [place] [address] Dr. Andrea Mccarthy SPEC GRAVITY 1.025 Normal 1.005-<=1.025 [facility] Comment on above: Performed By: #### U AMIC #### [facility] [address] [place] [address] Dr. Anrdea Mccarthy UA PROTEIN Negative Normal NEGATIVE/ TRACE [facility] Comment on above: Performed By: #### U AMIC #### [facility] [address] [place] [address] Dr. Andrea Mccarthy Urobilinogen Qn (U) 0.2 {Mikel'U}/dL Normal 0.2 - 1. 0 [facility] Comment on above: Performed By: #### U AMIC #### [facility] [address] [place] [address] Dr. Andrea Mccarthy WBC NONE SEEN Normal NONE SEEN [facility] Comment on above: Performed By: #### U AMIC #### [facility] [address] [place] [address] Dr. Andrea Mccarthy URINE T PROTEIN CREAT RATIOo n 01-30-2023 Protein (U) [Mass/Vol] 21.5 mg/dL Critically high <=12.0 [facility] Comment on above: Performed By: #### U KIM, MG, PHOS #### [facility] [address] [address] [address] Andrea Mccarthy UR PROT CREAT RAT 0.15 Normal [facility] Comment on above: Performed By: #### U KIM, MG, PHOS #### [facility] [address] [address] [address] Andrea Mccarthy URINE CREAT 144.81 mg/dL Normal 20.00-300.00 [facility] Comment on above: Performed By: #### U KIM, MG, PHOS #### [facility] [address] [place] [address] Dr. Andrea Mccarthy VIT B12 AND FOLATEon 023 Cobalamin (Vitamin B12) [Mass/Vol] 1425.0 pg/mL Critically high 193.0-986.0 [facility] Comment on above: Performed By: #### U KIM, MG, PHOS #### [facility] [address] [address] [address] Andrea Mccarthy FOLATE 22.60 ng/mL Normal 8.60-58.90 [facility] Comment on above: Performed By: #### U KIM, MG, PHOS #### [facility] [address] [address] SINUSES WO CONon 01-02-[address] SINUSES WO CON EXAMINATION: CT SINUSES WO CON HISTORY: Chronic sinusitis COMPARISON: CT sinuses 10/30/2018 TECHNIQUE: Axial and Coronal CT images were created without IV contrast. Dose reduction techniques were achieved by using automated exposure control and/or adjustment of mA and/or kV according to patient size and/or use of iterative reconstruction technique. FINDINGS: MAXILLARY SINUSES: No significant mucosal thickening or fluid. Infundibula are patent. No significant anomalous inferior orbital ethmoid (Twin) air cells. ETHMOID SINUSES: No significant mucosal thickening or fluid. Fovea ethmoidali and lamina papyracea are symmetric and intact. SPHENOID SINUSES: Trace amount of mucosal thickening, 1 mm, within right sphenoid sinus. FRONTAL SINUSES: No significant mucosal thickening or fluid. Frontal recesses are patent. NASAL FOSSA: 1 mm rightward deviation of the nasal septum. Bri bullosa of the middle turbinates bilaterally. OTHER: Oval densely calcified mass within soft tissues adjacent the right side of the mandible, 19 x 12 x 10 mm. IMPRESSION: 1. Minimal CT evidence of chronic sinusitis seen within the right sphenoid sinus. 2. Nonspecific calcified mass, possibly granuloma immediately adjacent the right side of the mandible, lateral to the second from posterior molar. This area was not imaged on the 2019 study. Electronically authenticated by: STEPHEN ROBLES Date: 2022-01-01 07:30 Normal [facility] INSULINon 11-15-2021 Insulin 9.0 uIU/mL Normal 2.6-24.9 [facility] Comment on above: Performed By: #### I NSULIN #### [facility] [address] [address] [address] Andrea Mccarthy PTH INTACTon 11-15-2021 PTH, Intact 43 pg/mL Normal 15-65 [facility] Comment on above: Performed By: #### U KIM, MG, PHOS #### [facility] [address] [address] [address] Andrea Mccarthy VIT D 25-OH LABCORPon 2021 Vitamin D, 25-Hydroxy 85.4 ng/mL Normal 30.0-100.0 [facility] Comment on above: Result Comment: Samina min D deficiency has been defined by the [place] of Medicine and an Endocrine Society practice guideline as a level of serum 25-OH vitamin D less than 20 ng/mL (1,2). The Endocrine Society went on to further define vitamin D insufficiency as a level between 21 and 29 ng/mL (2). 1. IOM ([place] of Medicine). 2010. Dietary reference intakes for calcium and D. [place]: The National Academies Press. 2. Dagoberto PAUL, Rachel GARDNER, Edilson MARTINEZ, et al. Evaluation, treatment, and prevention of vitamin D deficiency: an Endocrine Society clinical practice guideline. JCEM. 2010; 96(7):1911-30. Performed By: #### V ITADLC #### [facility] [address] [place] [address] Dr. Andrea Mccarthy CBC AUTO DIFFon 11-14-2021 BASO # 0.0 103/ul Normal 0.0-0.1 [facility] Comment on above: Performed By: #### U KIM, MG, PHOS #### [facility] [address] [place] [address] Dr. Andrea Mccarthy Basophils/100 WBC (Bld) 0.6 % Normal 0.2-2.0 [facility] Comment on above: Performed By: #### U KIM, MG, PHOS #### [facility] [address] [place] [address] Dr. Andrea Mccarthy EO # 0.2 103/ul Normal 0.0-0.7 [facility] Comment on above: Performed By: #### U KIM, MG, PHOS #### [facility] [address] [place] [address] Dr. Andrea Mccarthy Eosinophils/100 WBC (Bld) 2.4 % Normal 0.9-7.0 [facility] Comment on above: Performed By: #### U KIM, MG, PHOS #### [facility] [address] [place] [address] Dr. Andrea Mccarthy Erythrocyte distribution width (RBC) [Ratio] 14.0 % Normal 11.0-15.0 [facility] Comment on above: Performed By: #### U KIM, MG, PHOS #### [facility] [address] [place] [address] Dr. Andrea Mccarthy Hematocrit (Bld) [Volume fraction] 35.7 % Critically low 36.0-48.0 [facility] Comment on above: Performed By: #### U KIM, MG, PHOS #### [facility] [address] [place] [address] Dr. Andrea Mccarthy Hemoglobin (Bld) [Mass/Vol] 11.2 g/dL Critically low 12.0-16.0 [facility] Comment on above: Performed By: #### U KIM, MG, PHOS #### [facility] [address] [address] [address] Andrea Mccarthy IG # 0.02 10e3/ul Normal 0.00-0.03 [facility] Comment on above: Performed By: #### U KIM, MG, PHOS #### [facility] [address] [place] [address] Dr. Andrea Mccarthy IG % 0.3 % Normal 0.0-0.5 [facility] Comment on above: Performed By: #### U KIM, MG, PHOS #### [facility] [address] [place] [address] Dr. Andrea Mccarthy LYMPH # 1.8 103/ul Normal 1.2-3.8 [facility] Comment on above: Performed By: #### U KIM, MG, PHOS #### [facility] [address] [place] [address] Dr. Andrea Mccarthy Lymphocytes/100 WBC (Bld) 24.9 % Normal 20.5-60.0 [facility] Comment on above: Performed By: #### U KIM, MG, PHOS #### [facility] [address] [place] [address] Dr. Andrea Mccarthy MANUAL DIFF REQ NO Normal [facility] Comment on above: Performed By: #### U KIM, MG, PHOS #### [facility] [address] [place] [address] Dr. Andrea Mccarthy MCH (RBC) [Entitic mass] 27.3 pg Normal 26.7-34.0 [facility] Comment on above: Performed By: #### U KIM, MG, PHOS #### [facility] [address] [place] [address] Dr. Andrea Mccarthy MCHC (RBC) [Mass/Vol] 31.4 g/dL Normal 29.9-35.2 [facility] Comment on above: Performed By: #### U KIM, MG, PHOS #### [facility] [address] [place] [address] Dr. Andrea Mccarthy MCV (RBC) [Entitic vol] 87.1 fL Normal 81.0-99.0 [facility] Comment on above: Performed By: #### U KIM, MG, PHOS #### [facility] [address] [address] [address] Andrea Mccarthy MONO # 0.5 103/ul Normal 0.3-0.8 [facility] Comment on above: Performed By: #### U KIM, MG, PHOS #### [facility] [address] [place] [address] Dr. Andrea Mccarthy Monocytes/100 WBC (Bld) 7.0 % Normal 1.7-12.0 [facility] Comment on above: Performed By: #### U KIM, MG, PHOS #### [facility] [address] [place] [address] Dr. Andrea Mccarthy NEUT # 4.7 103/ul Normal 1.4-6.5 [facility] Comment on above: Performed By: #### U KIM, MG, PHOS #### [facility] [address] [place] [address] Dr. Andrea Mccarthy Neutrophils/100 WBC (Bld) 64.8 % Normal 43.0-75.0 [facility] Comment on above: Performed By: #### U KIM, MG, PHOS #### [facility] [address] [place] [address] Dr. Andrea Mccarthy Platelet mean volume (Bld) [Entitic vol] 10.1 fL Normal 9.5-13.5 [facility] Comment on above: Performed By: #### U KIM, MG, PHOS #### [facility] [address] [place] [address] Dr. Andrea Mccarthy PLT 309 103/ul Normal 150-450 [facility] Comment on above: Performed By: #### U KIM, MG, PHOS #### [facility] [address] [place] [address] Dr. Andrea Mccarthy RBC 4.10 106/ul Critically low 4.20-5.40 [facility] Comment on above: Performed By: #### U KIM, MG, PHOS #### [facility] [address] [place] [address] Dr. Andrea Mccarthy WBC 7.2 103/ul Normal 4.0-11.0 [facility] Comment on above: Performed By: #### U KIM MG, PHOS #### [facility] [address] [address] [address] Andrea Mccarthy FREE THYROXINE INDEX T7on FTI 4.14 Normal 1.30-4.50 [facility] Comment on above: Performed By: #### U KIM, MG, PHOS #### [facility] [address] [place] [address] Dr. Andrea Mccarthy T3U 36.0 % Normal 30.0-39.0 [facility] Comment on above: Performed By: #### U KIM MG, PHOS #### [facility] [address] [place] [address] Dr. Andrea Mccarthy T4 [Mass/Vol] 11.50 ug/dL Normal 4.80-13.90 [facility] Comment on above: Performed By: #### U KIM MG, PHOS #### [facility] [address] [place] [address] Dr. Andrea Mccarthy GLYCOHEMOGLOBIN A1Con 2021 ADA RECOMMENDATION SEE BELOW Normal [facility] Comment on above: Result Comment: ADA RECOMMENDED LIMIT 4.0 - 6.0 ADA THERAPEUTIC TARGET < 7.0 ACTION SUGGESTED > 7.0 Performed By: #### A 1C #### [facility] [address] [place] [address] Dr. Andrea Mccarthy Glucose [Mass/Vol] 137 mg/dL Normal [facility] Comment on above: Performed By: #### A 1C #### [facility] [address] [place] [address] Dr. Andrea Mccarthy HbA1c (Bld) [Mass fraction] 6.4 % Critically high 4.5-6.2 [facility] Comment on above: Performed By: #### A 1C #### [facility] [address] [place] [address] Dr. Andrea Mccarthy IRONon 11-14-2021 Iron [Mass/Vol] 34.0 ug/dL Critically low 50.0-170.0 [facility] Comment on above: Performed By: #### U KIM, MG, PHOS #### [facility] [address] [address] [address] Andrea Mccarthy LIPID PROFILEon 11-14-2021 CHOL-HDL RATIO NORM SEE BELOW Normal [facility] Comment on above: Result Comment: 3.3 - 4.4 LOW RISK 4.4 - 7.1 AVERAGE RISK 7.1 - 11.0 MODERATE RISK >11.0 HIGH RISK Performed By: #### L IPID, TSH, T7, CMP #### [facility] [address] [address] [address] Andrea Mccarthy Cholesterol [Mass/Vol] 152 mg/dL Normal <=200 [facility] Comment on above: Performed By: #### L IPID, TSH, T7, CMP #### [facility] [address] [address] [address] Andrea Mccarthy Cholesterol in HDL [Mass/Vol] 51 mg/dL Normal 40-60 [facility] Comment on above: Performed By: #### L IPID, TSH, T7, CMP #### [facility] [address] [address] [address] Andrea Mccarthy Cholesterol in LDL [Mass/Vol] 83.4 mg/dL Normal [facility] Comment on above: Performed By: #### L IPID, TSH, T7, CMP #### [facility] [address] [address] [address] Andrea Mccarthy Cholesterol.total/Ch olesterol in HDL [Mass ratio] 3.0 {ratio} Normal [facility] Comment on above: Performed By: #### L IPID, TSH, T7, CMP #### [facility] [address] [address] [address] Andrea Mccarthy HDL NORMAL > or = 60 mg/dl - LOW CARDIOVASCULAR RISK <40 mg/dl - HIGH CARDIOVASCULAR RISK Normal [facility] Comment on above: Performed By: #### L IPID, TSH, T7, CMP #### [facility] [address] [address] [address] Andrea Mccarthy LDL CALC NORMAL SEE BELOW Normal [facility] Comment on above: Result Comment: <100 mg/dl OPTIMAL 100 - 129 mg/dl NEAR OR ABOVE OPTIMAL 130 - 159 mg/dl BORDERLINE HIGH 160 - 189 mg/dl HIGH >190 mg/dl VERY HIGH Performed By: #### L IPID, TSH, T7, CMP #### [facility] [address] [address] [address] Andrea Mccarthy Triglyceride [Mass/Vol] 88 mg/dL Normal <=150 [facility] Comment on above: Performed By: #### L IPID, TSH, T7, CMP #### [facility] [address] [address] [address] Andrea Mccarthy VLDL CALC 17.6 mg/dL Normal [facility] Comment on above: Performed By: #### L IPID, TSH, T7, CMP #### [facility] [address] [place] [address] Dr. Andrea Mccarthy MAGNESIUMon 11-14-2021 Magnesium [Mass/Vol] 2.2 mg/dL Normal 1.8-2.4 [facility] Comment on above: Performed By: #### U KIM, MG, PHOS #### [facility] [address] [address] [address] Andrea Mccarthy PHOSPHORUSon 11-14-2021 Phosphate [Mass/Vol] 3.0 mg/dL Normal 2.6-4.7 [facility] Comment on above: Performed By: #### U KIM, MG, PHOS #### [facility] [address] [place] [address] Dr. Andrea Mccarthy PROF 14(COMP METB)on 022 Albumin [Mass/Vol] 3.2 g/dL Critically low 3.4-5.0 Th [facility] Comment on above: Performed By: #### L IPID, TSH, T7, CMP #### [facility] [address] [place] [address] Dr. Andrea Mccarthy Albumin/Globulin [Mass ratio] 0.8 {ratio} Normal [facility] Comment on above: Performed By: #### L IPID, TSH, T7, CMP #### [facility] [address] [address] [address] Andrea Mccarthy ALP [Catalytic activity/Vol] 51 U/L Normal 46-116 [facility] Comment on above: Performed By: #### L IPID, TSH, T7, CMP #### [facility] [address] [address] [address] Andrea Mccarthy ALT [Catalytic activity/Vol] 13 U/L Critically low 14-59 [facility] Comment on above: Performed By: #### L IPID, TSH, T7, CMP #### [facility] [address] [address] [address] Andrea Mccarthy Anion gap [Moles/Vol] 11.4 mmol/L Normal [facility] Comment on above: Performed By: #### L IPID, TSH, T7, CMP #### [facility] [address] [place] [address] Dr. Andrea Mccarthy AST [Catalytic activity/Vol] 9 U/L Critically low 15-37 [facility] Comment on above: Performed By: #### L IPID, TSH, T7, CMP #### [facility] [address] [place] [address] Dr. Andrea Mccarthy Bilirubin [Mass/Vol] 0.3 mg/dL Normal 0.2-1.0 [facility] Comment on above: Performed By: #### L IPID, TSH, T7, CMP #### [facility] [address] [address] [address] Andrea Mccarthy Calcium [Mass/Vol] 8.4 mg/dL Critically low 8.5-10.1 Th [facility] Comment on above: Performed By: #### L IPID, TSH, T7, CMP #### [facility] [address] [address] [address] Andrea Mccarthy Chloride [Moles/Vol] 105 mmol/L Normal 98-107 [facility] Comment on above: Performed By: #### L IPID, TSH, T7, CMP #### [facility] [address] [address] [address] Andrea Mccarthy CO2 [Moles/Vol] 27.7 mmol/L Normal 21.0-32.0 [facility] Comment on above: Performed By: #### L IPID, TSH, T7, CMP #### [facility] [address] [place] [address] Dr. Andrea Mccarthy Creatinine [Mass/Vol] 1.31 mg/dL Critically high 0.55-1.02 [facility] Comment on above: Performed By: #### L IPID, TSH, T7, CMP #### [facility] [address] [place] [address] Dr. Andrea Mccarthy EGFR-AF BELGIAN 49 mL/min/1.73m2 Critically low >=60 [facility] Comment on above: Performed By: #### L IPID, TSH, T7, CMP #### [facility] [address] [place] [address] Dr. Andrea Mccarthy EGFR-NON AF BELGIAN 40 mL/min/1.73m2 Critically low >=60 [facility] Comment on above: Performed By: #### L IPID, TSH, T7, CMP #### [facility] [address] [place] [address] Dr. Andrea Mccarthy Globulin (S) [Mass/Vol] 3.9 g/dL Normal [facility] Comment on above: Performed By: #### L IPID, TSH, T7, CMP #### [facility] [address] [place] [address] Dr. Andrea Mccarthy Glucose [Mass/Vol] 97 mg/dL Normal 74-106 [facility] Comment on above: Performed By: #### L IPID, TSH, T7, CMP #### [facility] [address] [place] [address] Dr. Andrea Mccarthy Potassium [Moles/Vol] 4.1 mmol/L Normal 3.5-5.1 [facility] Comment on above: Performed By: #### L IPID, TSH, T7, CMP #### [facility] [address] [place] [address] Dr. Andrea Mccarthy Protein [Mass/Vol] 7.1 g/dL Normal 6.4-8.2 [facility] Comment on above: Performed By: #### L IPID, TSH, T7, CMP #### [facility] [address] [address] [address] Andrea Mccarthy Sodium [Moles/Vol] 140 mmol/L Normal 136-145 [facility] Comment on above: Performed By: #### L IPID, TSH, T7, CMP #### [facility] [address] [place] [address] Dr. Andrea Mccarthy Urea nitrogen [Mass/Vol] 23.0 mg/dL Critically high 7.0-18.0 [facility] Comment on above: Performed By: #### L IPID, TSH, T7, CMP #### [facility] [address] [place] [address] Dr. Andrea Mccarthy Urea nitrogen/Creatinine [Mass ratio] 17.6 mg/mg Normal [facility] Comment on above: Performed By: #### L IPID, TSH, T7, CMP #### [facility] [address] [place] [address] Dr. Andrea Mccarthy TSHon 11-14-2021 TSH 0.032 uIU/mL Critically low 0.358-3.740 [facility] Comment on above: Performed By: #### U KIM, MG, PHOS #### [facility] [address] [place] [address] Dr. Andrea Mccarthy UA RANDOM W/MICROSCOPICon BACTERIA NONE SEEN Normal NONE SEEN [facility] Comment on above: Performed By: #### U KIM, MG, PHOS #### [facility] [address] [place] [address] Dr. Andrea Mccarthy Bilirubin Ql (U) Negative Normal NEGATIVE [facility] Comment on above: Performed By: #### U KIM, MG, PHOS #### [facility] [address] [place] [address] Dr. Andrea Mccarthy CAST NONE SEEN Normal NONE SEEN [facility] Comment on above: Performed By: #### U KIM, MG, PHOS #### [facility] [address] [place] [address] Dr. Andrea Mccarthy Clarity (U) CLEAR Normal CLEAR [facility] Comment on above: Performed By: #### U KIM, MG, PHOS #### [facility] [address] [address] [address] Andrea Mccarthy Color (U) YELLOW Normal YELLOW [facility] Comment on above: Performed By: #### U KIM, MG, PHOS #### [facility] [address] [address] [address] Andrea Mccarthy Crystals LM Nom (Urine sed) NONE SEEN Normal NONE SEEN [facility] Comment on above: Performed By: #### U KIM, MG, PHOS #### [facility] [address] [address] [address] Andrea Mccarthy Epithelial cells LM Ql (Urine sed) FEW Abnormal NONE SEEN /RARE [facility] Comment on above: Performed By: #### U KIM, MG, PHOS #### [facility] [address] [place] [address] Dr. Andrea Mccarthy Glucose Ql (U) Negative Normal NEGATIVE [facility] Comment on above: Performed By: #### U KIM, MG, PHOS #### [facility] [address] [address] [address] Andrea Mccarthy Hemoglobin Ql (U) TRACE-INTACT Abnormal NEGATIVE [facility] Comment on above: Performed By: #### U KIM, MG, PHOS #### [facility] [address] [place] [address] Dr. Andrea Mccarthy Ketones Ql (U) Negative Normal NEGATIVE [facility] Comment on above: Performed By: #### U KIM, MG, PHOS #### [facility] [address] [address] [address] Andrea Mccarthy LEUKOCYTES Negative Normal NEGATIVE [facility] Comment on above: Performed By: #### U KIM, MG, PHOS #### [facility] [address] [address] [address] Andrea Mccarthy MUCOUS SMALL Abnormal NONE SEEN [facility] Comment on above: Performed By: #### U KIM, MG, PHOS #### [facility] [address] [address] [address] Andrea Mccarthy Nitrite Ql (U) Negative Normal NEGATIVE [facility] Comment on above: Performed By: #### U KIM, MG, PHOS #### [facility] [address] [place] [address] Dr. Andrea Mccarthy pH (U) 5.5 [pH] Normal 5-9 [facility] Comment on above: Performed By: #### U KIM, MG, PHOS #### [facility] [address] [place] [address] Dr. Andrea Mccarthy RBC 0-2 Normal 0-2 [facility] Comment on above: Performed By: #### U KIM, MG, PHOS #### [facility] [address] [place] [address] Dr. Andrea Mccarthy SPEC GRAVITY 1.020 Normal 1.005-<=1.025 [facility] Comment on above: Performed By: #### U KIM, MG, PHOS #### [facility] [address] [place] [address] Dr. Andrea Mccarthy UA PROTEIN Negative Normal NEGATIVE/ TRACE [facility] Comment on above: Performed By: #### U KIM, MG, PHOS #### [facility] [address] [place] [address] Dr. Andrea Mccarthy Urobilinogen Qn (U) 0.2 {Mikel'U}/dL Normal 0.2 - 1. 0 [facility] Comment on above: Performed By: #### U KIM, MG, PHOS #### [facility] [address] [place] [address] Dr. Andrea Mccarthy WBC NONE SEEN Normal NONE SEEN [facility] Comment on above: Performed By: #### U KIM, MG, PHOS #### [facility] [address] [place] [address] Dr. Andrea Mccarthy URIC ACID SERUMon 11-14-2021 Urate [Mass/Vol] 5.0 mg/dL Normal 2.6-6.0 [facility] Comment on above: Performed By: #### U KIM, MG, PHOS #### [facility] [address] [place] [address] Dr. Andrea Mccarthy URINE T PROTEIN CREAT RATIOo n 11-14-2021 Protein (U) [Mass/Vol] 22.3 mg/dL Critically high <=12.0 [facility] Comment on above: Performed By: #### U KIM, MG, PHOS #### [facility] [address] [address] [address] Andrea Mccarthy UR PROT CREAT RAT 0.15 Normal [facility] Comment on above: Performed By: #### U KIM, MG, PHOS #### [facility] [address] [address] [address] Andrea Mccarthy URINE CREAT 151.50 mg/dL Normal 20.00-300.00 [facility] Comment on above: Performed By: #### U KIM, MG, PHOS #### [facility] [address] [address] [address] Andrea Mccarthy Vital Signs Date Time Vital Sign Value Performing Clinician Facility 11-19-2022 11:00-0400 Body height 162.56 cm Audie Dionne Other [email or web address] Other 11-19-2022 11:00-0400 Body mass index (BMI) [Ratio] 28.9 kg/m2 Audie Dionne Other [email or web address] Other 11-19-2022 11:00-0400 Body temperature 96 [degF] Audie Dionne Other [email or web address] Other 11-19-2022 11:00-0400 Body weight 76.39 kg Audie Dionne Other [email or web address] Other 11-19-2022 11:00-0400 Diastolic blood pressure 81 mm[Hg] Audie Dionne Other [email or web address] Other 11-19-2022 11:00-0400 Respiratory rate 18 /min Audie Dionne Other [email or web address] Other 11-19-2022 11:00-0400 SaO2% (BldA) [Mass fraction] 98 % Audie Dionne Other [email or web address] Other 11-19-2022 11:00-0400 Systolic blood pressure 132 mm[Hg] Audie Dionne Other [email or web address] Other 07-02-2022 14:17-0400 Blood Pressure Location [facility] 07-02-2022 14:17-0400 Diastolic blood pressure 88 mm[Hg] [facility] 07-02-2022 14:17-0400 Heart rate 71 /min Iv[facility] [facility] 07-02-2022 14:17-0400 Systolic blood pressure 128 mm[Hg] Iván TOMLIN [facility] 05-29-2022 10:40-0500 Body height 162.56 cm Audie Dionne Other [email or web address] Other 05-29-2022 10:40-0500 Body mass index (BMI) [Ratio] 28.22 kg/m2 Audie Dionne Other [email or web address] Other 05-29-2022 10:40-0500 Body temperature 96.3 [degF] Audie Dionne Other [email or web address] Other 05-29-2022 10:40-0500 Body weight 74.57 kg Audie Dionne Other [email or web address] Other 05-29-2022 10:40-0500 Diastolic blood pressure 81 mm[Hg] Audie Dionne Other [email or web address] Other 05-29-2022 10:40-0500 Respiratory rate 18 /min Audie Dionne Other [email or web address] Other 05-29-2022 10:40-0500 SaO2% (BldA) [Mass fraction] 98 % Audie Dionne Other [email or web address] Other 05-29-2022 10:40-0500 Systolic blood pressure 125 mm[Hg] Audie Dionne Other [email or web address] Other 11-21-2021 12:40-0400 Body height 162.56 cm Audie Dionne Other [email or web address] Other 11-21-2021 12:40-0400 Body mass index (BMI) [Ratio] 28.22 kg/m2 Audie Dionne Other [email or web address] Other 11-21-2021 12:40-0400 Body temperature 96.8 [degF] Audie Dionne Other [email or web address] Other 11-21-2021 12:40-0400 Body weight 74.57 kg Audie Dionne Other [email or web address] Other 11-21-2021 12:40-0400 Diastolic blood pressure 79 mm[Hg] Audie Dionne Other [email or web address] Other 11-21-2021 12:40-0400 Respiratory rate 18 /min Audie Dionne Other [email or web address] Other 11-21-2021 12:40-0400 SaO2% (BldA) [Mass fraction] 98 % Audie Dionne Other [email or web address] Other 11-21-2021 12:40-0400 Systolic blood pressure 117 mm[Hg] Audie Dionne Other [email or web address] Other 06-01-2021 16:20-0500 Body height 162.56 cm Audie Dionne Other [email or web address] Other 06-01-2021 16:20-0500 Body mass index (BMI) [Ratio] 30.89 kg/m2 Audie Dionne Other [email or web address] Other 06-01-2021 16:20-0500 Body temperature 96.5 [degF] Audie Dionne Other [email or web address] Other 06-01-2021 16:20-0500 Body weight 81.65 kg Audie Dionne Other [email or web address] Other 06-01-2021 16:20-0500 Diastolic blood pressure 80 mm[Hg] Audie Dionne Other [email or web address] Other 06-01-2021 16:20-0500 Respiratory rate 18 /min Audie Dionne Other [email or web address] Other 06-01-2021 16:20-0500 SaO2% (BldA) [Mass fraction] 98 % Audie Dionne Other [email or web address] Other 06-01-2021 16:20-0500 Systolic blood pressure 119 mm[Hg] Audie Dionne Other [email or web address] Other 03-27-2021 16:20-0500 Body height 162.56 cm Audie Dionne Other [email or web address] Other 03-27-2021 16:20-0500 Body mass index (BMI) [Ratio] 31.55 kg/m2 Audie Dionne Other [email or web address] Other 03-27-2021 16:20-0500 Body temperature 96.5 [degF] Audie Dionne Other [email or web address] Other 03-27-2021 16:20-0500 Body weight 83.37 kg Audie Dionne Other [email or web address] Other 03-27-2021 16:20-0500 Diastolic blood pressure 80 mm[Hg] Audie Dionne Other [email or web address] Other 03-27-2021 16:20-0500 Respiratory rate 18 /min Audie Dionne Other [email or web address] Other 03-27-2021 16:20-0500 SaO2% (BldA) [Mass fraction] 99 % Audie Dionne Other [email or web address] Other 03-27-2021 16:20-0500 Systolic blood pressure 119 mm[Hg] Audie Dionne Other [email or web address] Other Encounters Encounter Date Encounter Type Care Provider Facility Start: 11-19-2022 End: 11-19-2022 ambulatory Audie Dionne Other [email or web address] Other Start: 11-19-2022 Office outpatient vi sit 15 minutes Audie Dionne [facility] Start: 09-06-2022 ambulatory DAYANA LOPEZ Facility: [facility] Start: 07-17-2022 End: 07-18-2022 ambulatory Iván TOMLIN [facility] Start: 07-17-2022 End: 07-17-2022 Patient encounter procedure vIán TOMLIN [facility] Start: 07-07-2022 End: 07-08-[address] IVÁN TOMLIN . Facility:[facility] Start: 07-02-2022 End: 07-03-2022 ambulatory MD AUDIE TRUONG Facility:[facility] Start: 07-02-2022 End: 07-02-2022 Patient encounter procedure Iván TOMLIN [facility] [place] Start: 05-31-2022 ambulatory MD PANTOJA DIONNE Facility :[facility] [place] Start: 05-29-2022 End: 05-29-2022 ambulatory Audie Dionne Other [email or web address] Other Start: 05-29-2022 Office outpatient vi sit 25 minutes Audie Dionne [facility] Start: 05-21-2022 End: 05-22-2022 ambulatory DAYANA LOPEZ Facility:[facility] Start: 12-30-2021 End: 12-31-2021 ambulatory DAYANA LOPEZ Facility:[facility] Start: 11-21-2021 End: 11-21-2021 ambulatory Audie Dionne Other [email or web address] Other Start: 11-21-2021 Office outpatient vi sit 25 minutes Audie Dionne [facility] Start: 11-14-2021 End: 11-15-2021 ambulatory AUDIE DIONNE Facility:[facility] Start: 06-02-2021 End: 06-02-2021 ambulatory Audie Dionne Other [email or web address] Other Start: 06-02-2021 Telephone encounter Audie Dionne [facility] Start: 06-01-2021 End: 06-01-2021 ambulatory Audie Dionne Other [email or web address] Other Start: 06-01-2021 Office outpatient vi sit 25 minutes Audie Dionne [facility] Start: 03-27-2021 End: 03-27-2021 ambulatory Audie Dionne Other [email or web address] Other Start: 03-27-2021 Office outpatient ne w 45 minutes Audie Dionne [facility] Procedures Date Procedure Procedure Detail Performing Clinician Start: 01-08-2019 Esophagogastroduodenoscopy Iván TOMLIN Abdominal hysterectomy Clarence TOMLIN Appendectomy Iván TOMLIN Colonoscopy Iván TOMLIN Payers Date Payer Category Payer Private Health Insurance [id number] 1950 Unknown [id number] 2.16.8 [id number] 1950 Unknown [id number] 2.16.8 [id number] 1950 Unknown [id number] 2.16.84 [id number] 1950 Unknown [id number] 2.16.84 [id number] 1950 Unknown [id number] 2.16.84 [id number] 1950 Unknown [id number] 2.16.84 [id number] 1950 Unknown [id number] 2.16.84 [id number] 1950 Unknown [id number] 2.16.84 [id number] Self-pay Self Pay [id number] Unknown Self Pay [id number] Social History Date Type Detail Facility Tobacco smoking stat [facility] Unknown if ever smoked [facility] Start: 1950 Sex Assigned At Female F [facility] Sex Assigned At [facility] Start: 07-02-2022 Tobacco smoking status Never s moked tobacco (finding) [facility] Tobacco smoking status Never [facility] Goals Date Patient Goal Desired Activity /State Functional Status Date Assessment Result Facility 07-02-2022 Functional Status N/A [facility] Clinical Notes 03-27-2021 to 11-19-2022 Note Date & Type Note Facility 11-19-2022 Evaluation note Encounter Date Diagnosis Assessment Notes Oct, Chronic kidney disease, stage 3b (ICD-10 - N18.32) She has CKD likely due to longstanding hypertension. Her serum creatinine fluctuates between 1.3-1.5 mg/dl. Her renal US showed right renal cyst. She has no evidence of hematuria and proteinuria. I discussed with her the importance of good HTN control to slow down the progression of CKD. 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 She appears to be euvolemic. Continue current Medications. Oct, Secondary hyperparathyroidism (ICD-10 - N25.81) MBD parameters including calcium, phosphorus, PTH and vitamin D are within the goal. Oct, Dyslipidemia (ICD-10 - E78.5) Continue stain. Monitor LFTs and lipid profile periodically. Oct, Microscopic hematuria (ICD-10 - R31.29) She has persistent trace hematuria on the UA. Will refer to urology for further work-up. Oct, Iron deficiency (ICD-10 - E61.1) Her Hb is within the goal . Continue oral Iron. She had Colonoscopy 2018 and advised to have repeat in 5 yrs [email or web address] Other [id number] Note [id number]:127[facility] 07-17-2022 Hospital Discharge instructions Patient Education 07/17/2022 09:10:09 [facility] - Cystoscopy Discharge Instructions (CUSTOM) Cystoscopy Voiding after the procedure: there may be some pain, burning, urgency, frequency and blood tinged urine following the procedure. These symptoms usually resolve within 2-5 days. Drink the amount of fluid it takes to keep the urine pink to yellow or clear in color. Drinking enough water and fluids will help to ease any discomfort after your procedure. If you are having problems that seem out of the ordinary, please call. If unable to contact your physician and you feel it is an emergency, go to the nearest emergency room or call 911 Diet you may resume your normal diet. Activity you may resume your normal activities Call if you have a fever over 100 degrees. Follow Up Care 07/02/2022 15:04:25 With:Iván TOMLIN Address: [facility] [address] [place] [address]- Business (1) When: Unknown Comments:Call for any problems. [facility]03-28-2023 NoteCustom Cystoscopy ? Voiding after the procedure: there may be some pain, burning, urgency, frequency and blood tingedurine following the procedure. These symptoms usually resolve within 2-5 days. Drink the amount of fluid it takes to keep the urine pink to yellow or clear in color. Drinking enough water and fluids will help to ease any discomfort after your procedure. ? If you are having problems that seem out of the ordinary, please call. ? If unable to contact your physician and you feel it is an emergency, go to the nearest emergency room or call 911 ? Diet ? you may resume your normal diet. ? Activity ? you may resume your normal activities ? Call if you have a fever over 100 degrees.[facility] 07-02-2022 NoteChief Complaint Pt here for referral for microscopic hematuria HPI Staff New patient referral from Dr. Truong for Microscopic hematuria. Patient states she has urine tested every 6 months. Patient states she feels good right now. Dysuria: no Incomplete bladder emptying: no Hematuria: no Frequency: no Urgency: no Nocturia: 1-2x Stream: strong Leaking: no Post void dripping: no Wearing pads/ Depends: no Urge incontinence: no Stress incontinence: no Incontinence without Sensory Awareness: no Abdominal pain: no Flank pain: no History of Present Illness Tests reviewed: reviewed UA, referral records. I have reviewed the previous health record information and history for this patient from Dr. Truong. I have reviewed and verified the staff HPI to be accurate for this encounter. There have been no associated fever, chills, flank pain, or blood in the urine. Denies any urinary infections since last encounter. Review of Systems PHQ Score Initial Depression Screen Score: 0 ROS - Provider Constitutional: denies weight loss, denies hot flashes. Eyes: denies eye problems. Gastrointestinal: denies nausea, denies vomiting. Cardiovascular: denies chest pain or angina. Integumentary: no dryness Musculoskeletal: denies musculoskeletal symptoms. ENMT: denies otolaryngeal symptoms. Respiratory: no shortness of breath. Heme/Lymph: denies easy bleeding tendency, denies easy bruising tendency. Psychiatric: no confusion, no anxiety. Genitourinary: See HPI. Physical Exam Vitals & Measurements HR: 71(Peripheral) BP: 128/88 HT: 64 in HT: 162 cm WT: 74 kg WT: 162.8 lb BMI: 28.2 General Appearance: alert , no acute distress, well nourished, well developed female. Head: normocephalic . Eyes: normal orbit and globe. ENMT: normal examination of external ears. Chest: Lungs CTA, respirations non labored . Cardiovascular: regular rate and rhythm. Abdomen: soft, non distended, no tenderness, no mass or organomegaly, no hernia. Genitourinary: bladder nonpalpable, no flank tenderness. Lymph Nodes: unremarkable palpation of the cervical area. Skin: warm, dry, no bruising. Psychiatric: cooperative, affect appropriate for age, normal judgement, euthymic mood. Assessment/Plan 1. Microscopic hematuria (R31.29: Other microscopic hematuria) Peg is a 72 yo female new patient referred by Dr. Truong for microscopic hematuria. Has done UA every 6 mos. CHRIS 04/04/21 - No hydro. Anechoic right renal cysts. One measures 2.0 x 1.6 x 1.4 cm. 2nd measures 5.1 x 3.2 x 4.6 cm. UA 05/21/22 - trace-intact, 0-2 RBCs. 05/21/22: BUN 25. Crea 1.23. eGFR 43. HGB 13.2 HCT 40.1. UA today shows trace-lysed blood. Denies gross blood. Started seeing Dr. Truong due to abnormal kidney fxn panel (eGFR 40 and 43). Has never smoked. Hx of ovarian cysts, had hysterectomy. Discussed hematuria workup. The patient is aware that a distinct etiology of the hematuria may not be clear upon conclusion of the workup. Will initiate hematuria workup to include upper urinary tract imaging (CHRIS), as well as evaluation of the urinary cells with urine cytology and possible a FISH test. A cystoscopy will be scheduled to rule out lower urinary tract pathology. The rationale for this workup has been discussed, and all questions have been answered. Informed consent will be obtained. Prophylactic antibiotics will be given. -Will schedule cysto. The risks and benefits for cystoscopy have been discussed. The risks include bleeding, infection, and irritation of the bladder and urinary channel, among others. The patient, after being informed of procedural details and after questions have been answered, wishes to proceed.Full informed consent has been obtained. Will order Local anesthesia. -CHRIS Follow-up With When Contact Information KELLY BLACKMON, Iván Hsu, URL [facility] [address], [place] [address]- Additional Instructions: schedule cysto, CHRIS Patient Education Hematuria, Adult I, Moira Estrada, personally scribed for Dr. Tomlin on 07/02/2022 14:49:49. . Documentation recorded by the scribe, Moira Estrada, accurately reflects the services(s) I performed and decisions made by me. Authenticated by Dr. Tomlin on 07/02/2022 14:52:22. Problem List/Past Medical History Ongoing Abnormal abdominal CT scan BMI 30+ - obesity Change in bowel habits Cholelithiasis Chronic GERD Colitis Epigastric abdominal pain HTN - Hypertension Hypothyroidism Periumbilical abdominal pain Historical No qualifying data Procedure/Surgical History Esophagogastroduodenoscopy (01/08/2019), Abdominal hysterectomy, Appendectomy, Colonoscopy. Medications aspirin 81 mg oral tablet, 81 mg= 1 tab(s), Oral, Daily, Not taking dicyclomine 20 mg Tab, 20 mg= 1 tab(s), Oral, QID Excedrin Migraine, 2 tab(s), Oral, q6hr fluticasone 0.05 mg/inh Nasal [place], 2 spray(s), Nasal, Daily (more content not included)...[facility]:Result Comment: Electronically Signed By: Iván TOMLIN MD\.br\Date and Time Signed: 07/02/22 14:52 EDT\.br\Electronically Co-Signed By: Moira Estrada\.br\Date and Time Co-Signed: 07/02/22 14:50 [id number] Hospital Discharge instructions Patient Education 07/02/2022 14:22:27 Hematuria, Adult Hematuria, Adult Hematuria is blood in the urine. Blood may be visible in the urine, or it may be identified with a test. This condition can be caused by infections of the bladder, urethra, kidney, or prostate. Otherpossible causes include: Kidney stones. Cancer of the urinary tract. Too much calcium in the urine. Conditions that are passed from parent to child (inherited conditions). Exercise that requires a lot of energy. Infections can usually be treated with medicine, and a kidney stone usually will pass through your urine. If neither of these is the cause of your hematuria, more tests may be needed to identify the cause of your symptoms. It is very important to tell your health care provider about any blood in your urine, even if it ispainless or the blood stops without treatment. Blood in the urine, when it happens and then stops and then happens again, can be a symptom of a very serious condition, including cancer. There is no pain in the initial stages of many urinary cancers. Follow these instructions at home: Medicines Take wxdd-iwu-oqhfslb and prescription medicines only as told by your health care provider. If you were prescribed an antibiotic medicine, take it as told by your health care provider. Do notstop taking the antibiotic even if you start to feel better. Eating and drinking Drink enough fluid to keep your urine clear or pale yellow. It is recommended that you drink 3 4 quarts (2.8 3.8 L) a day. If you have been diagnosed with an infection, it is recommended that you drink cranberry juice in addition to large amounts of water. Avoid caffeine, tea, and carbonated beverages. These tend to irritate the bladder. Avoid alcohol because it may irritate the prostate (men). General instructions If you have been diagnosed with a kidney stone, follow your health care provider's instructions about straining your urine to catch the stone. Empty your bladder often. Avoid holding urine for long periods of time. If you are female: ?After a bowel movement, wipe from front to back and use each piece of toilet paper only once. ?Empty your bladder before and after sex. Pay attention to any changes in your symptoms. Tell your health care provider about any changes or any new symptoms. It is your responsibility to get your test results. Ask your health care provider, or the department performing the test, when your results will be ready. Keep all follow-up visits as told by your health care provider. This is important. Contact a health care provider if: You develop back pain. You have a fever. You have nausea or vomiting. Your symptoms do not improve after 3 days. Your symptoms get worse. Get help right away if: You develop severe vomiting and are unable take medicine without vomiting. You develop severe pain in your back or abdomen even though you are taking medicine. You pass a large amount of blood in your urine. You pass blood clots in your urine. You feel very weak or like you might faint. You faint. Summary Hematuria is blood in the urine. It has many possible causes. It is very important that you tell your health care provider about any blood in your urine, even ifit is painless or the blood stops without treatment. Take nbkq-ygf-tsnlqqb and prescription medicines only as told by your health care provider. Drink enough fluid to keep your urine clear or pale yellow. This information is not intended to replace advice given to you by your health care provider. Make sure you discuss any questions you have with your health care provider. Document Released: 04/08/2006 Document Revised: 09/02/2019 Document Reviewed: 05/11/2017 [employer] Patient Education 2019 [employer]. Follow Up Care 05/31/2022 13:31:32 With:KELLY BLACKMON, SHI Mckeon Address: [facility] [address] [place] [address]- When: Unknown [facility] 02-07-2023 Evaluation note* Encounter Date Diagnosis Assessment Notes Treatment Notes Treatment Clinical Notes May, Chronic kidney disea se, stage 3b (ICD-10 - N18.32) She has CKD likely due to longstanding hypertension. Her serum creatinine fluctuates between 1.3-1.5 mg/dl. Her renal US showed right renal cyst. She has no evidence of hematuria and proteinuria. I discussed with her the importance of good HTN control to slow down the progression of CKD. 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 She appears to be euvolemic. Continue current Medications. May, Secondary hyperparathyroidism (ICD-10 - N25.81) She has a secondary hyperparathyroidism due to the CKD. Her calcium phosphorus and vitamin D are within the goal. Will start calcitriol if needed in future if PTH is goes above the target goal. May, Dyslipidemia (ICD-10 - E78.5) Continue stain. Monitor LFTs and lipid profile periodically. May, Microscopic hematuri a (ICD-10 - R31.29) She has persistent trace hematuria on the UA. Will refer to urology for further work-up. May, Iron deficiency (ICD -10 - E61.1) Her Hb is within the goal . Continue oral Iron. She had Colonoscopy 2018 and advised to have repeat in 5 yrs [email or web address] Other 08-02-2022 Evaluation note* Encounter Date Diagnosis Assessment Notes Treatment Notes Treatment Clinical Notes Nov, Chronic kidney disea se, stage 3b (ICD-10 - N18.32) She has CKD likely due to longstanding hypertension. Her serum creatinine fluctuates between 1.3-1.5 mg/dl. Her renal US showed right renal cyst. She has no evidence of hematuria and proteinuria. I discussed with her the importance of good HTN control to slow down the progression of CKD. Nov, Chris terrazas w cr kid I-IV (ICD-10 - I12.9) Blood pressure is controlled. She appears to be euvolemic. Continue current Medications. Nov, Secondary hyperparathyroidism (ICD-10 - N25.81) She has a secondary hyperparathyroidism due to the CKD. Her calcium phosphorus and vitamin D are within the goal. Will start calcitriol if needed in future if PTH is goes above the target goal. Nov, Anemia of renal dise ase (ICD-10 - D63.1) Her Hb is within the goal . Continue oral Iron. She had Colonoscopy 2018 and advised to have repeat in 5 yrs Nov, Dyslipidemia (ICD-10 - E78.5) Continue stain. Monitor LFTs and lipid profile periodically. [email or web address] Other 02-10-2022 Evaluation note* Encounter Date Diagnosis Assessment Notes Treatment Notes Treatment Clinical Notes May, Chronic kidney disea se, stage 3b (ICD-10 - N18.32) She has CKD likely due to longstanding hypertension. Her serum creatinine fluctuates between 1.3-1.5 mg/dl. Her renal US showed right renal cyst. She has no evidence of hematuria and proteinuria. I discussed with her the importance of good HTN control to slow down the progression of CKD. May, Chris terrazas w cr kid I-IV (ICD-10 - I12.9) Blood pressure is controlled. She appears to be euvolemic. Continue current Medications. May, Secondary hyperparathyroidism (ICD-10 - N25.81) She has a secondary hyperparathyroidism due to the CKD. Her calcium phosphorus and vitamin D are within the goal. Will start calcitriol if needed in future if PTH is goes above the target goal. May, Osteoporosis (ICD-10 - M81.0) Continue to alendronate and raloxifene. Continue follow with PCP. May, Dyslipidemia (ICD-10 - E78.5) Continue stain. Monitor LFTs and lipid profile periodically. [email or web address] Other 12-06-2021 Evaluation note* Encounter Date Diagnosis Assessment Notes Treatment Notes Treatment Clinical Notes Mar, Chronic kidney disea se, stage 3b (ICD-10 - N18.32) It was a pleasure to see Mrs. Hadley in our office for an evaluation and management of CKD. As you know she has CKD likely due to longstanding hypertension. Her serum creatinine fluctuates between 1.3-1.5 mg/dl. I have ordered a renal ultrasound to evaluate the renal anatomy. I have ordered UA and UPCR to evaluate for hematuria and proteinuria. I discussed with her the importance of good HTN control to slow down the progression of CKD. 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 She appears to be euvolemic. Continue current Medications. Mar, Secondary hyperparathyroidism (ICD-10 - N25.81) Calcium within normal limit. We will check PTH and vitamin D. Mar, Osteoporosis (ICD-10 - M81.0) Continue to alendronate and raloxifene. Continue follow with PCP. Mar, Dyslipidemia (ICD-10 - E78.5) [facility] Monitor LFTs and lipid profile periodically. [email or web address] Other Evaluation + Plan note Future Appointments Appointment Date:07/10/2022 11:30:00 AM Scheduled Provider: Location:[facility] Appointment Type:Urology CALL PAT FT Appointment Date:07/17/2022 08:45:00 AM Scheduled Provider: Location:[facility] Appointment Type:Urology FT Diagnostic Tests Pending * Urine Cytology ([facility]) 07[facility]02/22 [facility] Assessments Information Available 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 progress note No data available for this section [facility] Summary Purpose Family History No Family History Records FoundNo Family History Records Found Advance Directives No Advanced Directives Records FoundNo Advanced Directives Records Found Additional Source Comments REASON FOR VISIT (unrecogniz ed section and content) RENAL CKD 3CKD and hyperpara thyroidismNo InformationCKD and HTNCKD and HTNCKD and HTN Patient Care team informatio n (unrecognized section and content) Personnel Name: DAYANA PEPPER CNP Address: Address: [address] [place] [address] Personnel Name: DAYANA PEPPER CNP Address: Address: [address] [place] [address] INFORMATION SOURCE (unrecogn ized section and content) DATE CREATED AUTHOR 07/24/2022 [facility] DATE CREATED AUTHOR AUTHOR'S ORGANIZ ATION 09/05/2022 [facility] FOR RECORDS PERTAINING TO PATIENTS WHO ARE OR HAVE BEEN ENROLLED IN A CHEMICAL DEPENDENCY/SUBSTANCEABUSE PROGRAM, SOME INFORMATION MAY BE OMITTED. This clinical summary was aggregated from multiple sources. Caution should be exercised in using it in the provision of clinical care. This summary normalizes information from multiple sources, and as a consequence, information in this document may materially change the coding, format and clinical context of patient data. In addition, data may be omitted in some cases. CLINICAL DECISIONS SHOULD BE BASED ON THE PRIMARY CLINICAL RECORDS. [facility]. provides no warranty or guarantee of the accuracy or completeness of information in this document.
[2023-05-15 10:47] LABS: Hematocrit 40.1 % (36.0-48.0); Hemoglobin 12.1 g/dL (12.0-16.0); Mean Corpuscular HGB Conc 30.2 g/dL (29.9-35.2); Mean Corpuscular Hemoglobin 27.3 pg (26.7-34.0); Mean Corpuscular Volume 90.5 fL (81.0-99.0); Mean Platelet Volume 10.4 fL (9.5-13.5); Platelet Count 331 10^3/uL (150-450); Red Blood Count 4.43 10^6/uL (4.20-5.40); Red Cell Distribution Width 15.5 % (11.0-15.0); White Blood Count 8.5 10^3/uL (4.0-11.0)
[2023-05-15 11:10] LABS: Albumin Level 3.1 g/dL (3.4-5.0); Anion Gap 14.8; BUN Creatinine Ratio 16.5; Carbon Dioxide 27.1 mmol/L (21.0-32.0); Chloride 103 mmol/L (98-107); Estimated GFR (African America 50 (>=60); Estimated GFR (Non-African Ame 41 (>=60); Glucose 96 mg/dL (74-106); Phosphorus 2.4 mg/dL (2.6-4.7); Potassium 3.9 mmol/L (3.5-5.1); Sodium 141 mmol/L (136-145); Uric Acid 4.5 mg/dL (2.6-6.0)
[2023-05-15 11:34] LABS: Percent Iron Saturation 33.3 %
[2023-05-15 13:48] LABS: Bilirubin Urine NEGATIVE (NEGATIVE); Blood Urine NEGATIVE (NEGATIVE); Clarity Urine CLEAR (CLEAR); Color Urine LT. YELLOW (YELLOW); Glucose Urine UA NEGATIVE (NEGATIVE); Ketones Urine NEGATIVE (NEGATIVE); Leukocyte Esterase Urine NEGATIVE (NEGATIVE); Nitrite Urine NEGATIVE (NEGATIVE); Protein Urine NEGATIVE (NEG/TRACE); Specific Gravity Urine <=1.005 (1.005-1.025); Urobilinogen Urine 0.2 EU/dL (0.2-1.0); pH Urine 6.5 (5.0-9.0)
[2023-05-15 13:57] LABS: RBC Urine NONE SEEN #/HPF (0-2); WBC Urine NONE SEEN #/HPF (NONE SEEN)
[2023-05-15 13:58] LABS: Bacteria Urine NONE SEEN #/HPF (NONE SEEN); Mucus Urine NONE SEEN (NONE SEEN); Squamous Epithelial Cell Urine FEW #/LPF (NONE/RARE)
[2023-05-15 14:03] LABS: Creatinine Urine Random <13.00 mg/dL (20.00-300.00)
[2023-05-15 14:07] LABS: Total Protein Urine Random <6.0 mg/dL (<=11.9)
[2023-05-16 13:10] LABS: PTH, Intact 120 pg/mL (15-65)
== END 2023-05-15 10:20 | disposition home or self-care (01) ==
LOC: LAB 10:21
PROVIDERS: PCP Nurse Practitioner Family; Visit Provider Internal Medicine
DX: I12.9 Hypertensive chronic kidney disease with stage 1 through stage 4 chronic kidney disease, or unspecified chronic kidney disease (principal); N18.32 Chronic kidney disease, stage 3b; N25.81 Secondary hyperparathyroidism of renal origin; E78.5 Hyperlipidemia, unspecified; R31.29 Other microscopic hematuria; E61.1 Iron deficiency
CPT/HCPCS: 36415; 80069; 81001; 82306; 82570; 82728; 83540; 83550; 83735; 83970; 84156; 84550; 85027

== ENCOUNTER 2023-06-17 08:31 | Outpatient (OUT) | payer MEDICARE, SELFPAY ==
--- OUTSIDE RECORDS SUMMARY | 2023-06-17 08:35 | XMS_ITS | CCD ---
Author Name Unknown Address [address] [place] [address] Organization [facility] Care Team Providers Care Intensive Care Ambulance Paramedic Name Role Phone Dionne, Audie Unavailable DAYANA PEPPER Primary Care Physician MD AUDIE TRUONG Referring Unavailable Iván TOMLIN [...] Medication Allergies] Propensity to adverse reactions (disorder) [facility] Repository Medications Current Medications Medication Drug Class(es) Dates Sig (Normalized) Sig (Original) alendronic acid 70 mg oral tablet (7 sources) Bisphosphonate take 1 tablet by mouth [...] hydrochloride 300 mg extended release oral tablet (7 sources) Aminoketone take 1 tablet by mouth every twenty-four hours buPROPion HCl ER (XL) 300 MG 1 tablet in the morning Orally Once a day Active cetirizine hydrochloride 10 mg oral tablet (4 sources) Histamine-1 Receptor Antagonist take 1 tablet [...] a day Active fluticasone 0.05 mg/inh Nasal [place] (2 sources) Start: 01-01-2019 take 2 spray(s) nasal route once daily fluticasone 0.05 mg/inh Nasal [place] 2 spray(s), Nasal, Daily, each nostril Start Date: 01/01/19 Status: Ordered Grape Seed Complex - (3 sources) take 300 mg by mouth once daily Grape Seed Complex - 300mg Orally daily Active Hydrochlorothiazide-25 mg 25 MG (3 sources) take 1 tablet by mouth once daily in the morning Hydrochlorothiaz coni-25 mg 25 MG 1 tablet in the [...] Ordered losartan potassium 100 mg oral tablet (9 sources) Angiotensin 2 Receptor Reinier Start: 01-01-2019 take 1 tablet by mouth once daily losartan 100 mg Tab 100 mg = 1 tab(s), Oral, Daily Start Date: 01/01/19 Status: Ordered lovastatin 40 mg oral tablet (9 sources) HMG-CoA Reductase Inhibitor Start: 01-01-2019 take 1 tablet by mouth once daily lovastatin 40 mg Tab 40 mg = 1 tab(s), Oral, Daily Start Date: 01/01/19 Status: Ordered methylsulfonylmethane 500 mg oral capsule (1 source) take 1 capsule by mouth every twenty-four hours MSM 500 MG 1 Capsule Orally daily Active metoprolol tartrate 25 mg oral tablet (2 sources) beta-Adrenergic Reinier Start: 01-01-2019 take 1 tablet by mouth twice daily Metoprolol tartrate 25 mg Tab 25 mg = 1 tab(s), Oral, BID Start Date: 01/01/19 Status: Ordered montelukast 10 mg oral tablet (9 sources) Leukotriene Receptor Antagonist Start: 01-01-2019 take 1 tablet by mouth once daily in the evening montelukast 10 mg Tab 10 mg = 1 tab(s), Oral, qPM Start Date: 01/01/19 Status: Ordered MSM 500 MG (6 sources) take 1 capsule by mouth once daily MSM 500 MG 1 Capsule Orally daily Active Multi Vitamin/Minerals - (4 sources) Multi Vitamin/Minerals - as directed Orally Active Multivitamin Adult - (3 sources) take 1 tablet by mouth once daily Multivitamin Adult - 1 tablet Orally daily Active omeprazole 40 mg delayed release oral capsule (7 sources) Proton Pump Inhibitor take 1 capsule [...] Active raloxifene hydrochloride 60 mg oral tablet (7 sources) Estrogen Agonist/Antagoni st take 1 tablet by mouth every twenty-four [...] procedure, # 2 tab(s), Refills(s) 0, Pharmacy: [facility]/pharmacy #[id number], 162, cm, 07/02/22 14:24:00 EDT, Height/Length Dosing, 74, kg, 07/02/22 14:24:00 EDT, W... Start Date: 07/02/22 Status: Ordered levothyroxine sodium 0.125 mg oral capsule (9 sources) l-Thyroxine Start: 01-01-2019 take 1 capsule [...] Translations: [Periumbilical pain] 01-06-2019 Episodic Anxiety disorders (7 sources) Anxiety; Translations: [Anxiety disorder, unspecified] Chronic Biliary tract disease (2 sources) Biliary calculus 01-06-2019 Episodic Chronic kidney disease (14 sources) Chronic kidney disease stage 3; Translations: [Chronic kidney disease, stage 3 (moderate)] Chronic Chronic kidney disease (14 sources) Chronic kidney disease; Translations: [Chronic kidney disease, stage 3 unspecified] Onset: 1 Resolved: 2 Deficiency and other anemia (4 sources) Anemia of renal disease; Translations: [Anemia in chronic kidney disease] Chronic Deficiency and other anemia (2 sources) Anemia in chronic kidney disease; Translations: [ANEMIA IN CHRONIC KIDNEY DISEASE] Onset: 2 Resolved: 2 Chronic Diabetes mellitus without complication (12 sources) Prediabetes; Translations: [Prediabetes] Onset: 2 Episodic Disorders of lipid metabolism (20 sources) Mixed hyperlipidemia; Translations: [Mixed hyperlipidemia] Onset: 1 Resolved: 2 Chronic Esophageal disorders (2 sources) Gastroesophageal reflux disease 01-06-2019 Chronic Essential hypertension (9 sources) Hypertensive disorder; Translations: [Essential (primary) hypertension] 01-06-2019 Chronic Genitourinary symptoms and ill-defined conditions (7 sources) Other microscopic hematuria; Translations: [Microscopic hematuria] Onset: 3 Episodic Hypertension with complications and secondary hypertension (18 sources) Chronic kidney disease due to hypertension; Translations: [Hypertensive chronic kidney disease with stage 1 through stage 4 chronic kidney disease, or unspecified chronic kidney disease] Onset: 1 Resolved: 2 Chronic Mood disorders (7 sources) Depressive disorder; Translations: [Major depressive disorder, single episode, unspecified] Chronic Noninfectious gastroenteritis (2 sources) Colitis 01-06-2019 Episodic Nutritional deficiencies (2 sources) Iron deficiency Episodic Osteoporosis (10 sources) Osteoporosis; Translations: [Age-related osteoporosis without current pathological fracture] Onset: 1 Resolved: 2 Chronic Other diseases of kidney and ureters (7 sources) Secondary hyperparathyroidism; Translations: [Secondary hyperparathyroidism of renal origin] Chronic Other diseases of kidney and ureters (7 sources) Secondary hyperparathyroidism of renal origin; Translations: [SEC HYPERPARATHYROIDISM RENAL ORIGN] Onset: 1 Resolved: 2 Chronic Other diseases of kidney and ureters (1 source) Cyst of kidney, acquired; Translations: [CYST OF KIDNEY ACQUIRED] Onset: 3 Episodic Other gastrointestinal disorders (2 sources) Alteration in bowel elimination 01-06-2019 Episodic Other nutritional; endocrine; and metabolic disorders (7 sources) Obesity; Translations: [Obesity, unspecified] Chronic Other nutritional; endocrine; and metabolic disorders (7 sources) Metabolic syndrome X; Translations: [Metabolic syndrome] Chronic Other nutritional; endocrine; and metabolic disorders (2 sources) Body mass index 30+ - obesity 01-06-2019 Chronic Other screening for suspected conditions (not mental disorders or infectious disease) (2 sources) CT of abdomen abnormal 01-06-2019 Episodic Other upper respiratory infections (4 sources) Chronic sinusitis, unspecified; Translations: [CHRONIC SINUSITIS UNSPECIFIED] Onset: 2 Chronic Thyroid disorders (9 sources) Hypothyroidism; Translations: [Hypothyroidism, unspecified] 01-06-2019 Chronic Past or Other Problems Problem Classification Problem Date Documented Da te Episodic/Chronic Deficiency and other anemia (1 source) Anemia, unspecified; Translations: [ANEMIA UNSPECIFIED] Onset: 11-17-2021 Episodic Results Test Name Value Interpretation Reference Range Facility Coding Summary.on 07-19-2022 Coding Summary. [id number] Ww+PGhlYWQ+IO4MFFGtH 44aaFKtxW4dG9YOIGsET ywgQVBQTElOSyIgbmFtZ B4wiHBoEWRd IC8+LC2pVUHhInkflCGb z9R5wXB1R26lao1vVCbn sQD9EBQxPoHsbpusq8ji sPh8TAzfCmltBvHe HZCzlZ49GXI1kG49Bb02 yQJwyGRyg6xqaRk2FpTf HZMiZBB2cDwmMWrak1Pm AJAhF95ycHHti8I3 IGNvbGxhcHNlOyBlbXB0 nI2sVHmxctuvl7uvcfes Yju4qz21lLKxv1U0pFY4 L8QylfV8UXLznCYk YbmlpPTAuY2culkxy2zj vtjpDnMcSKWaROw5NAs8 VRYtaDnqYwPhSL13OBC9 ICEkrmJrR2XnZZEr qBtkNpN4h6L9Fi1DL9ON TpkbZ5QTUQATKPejsJP+ QR46is32K4FrSslsBya4 BGWmRCB0gHA6nD5r CMLaXOrtw5T5dHT2Z3Az usRjxb3xo6blRNJyJMph E99loORca6X8DWDjvEF6 DGMvuYouXrSqxT94 Oyc+MMOvdWbbn0UaSjhp r7sqc7pptFp2WbvnACLx buGqfRruPPL6w3VaXk4v MLFogQE4iDE5pB3f OfOlVkG7BVwzL426CuYc yUKlYehrU30iC1JgpFW+ LOEwCyt6PSVzqJxeNJ7z T2AwZIOotlaarAFe zTtpBS0dGOFzlewvSNBz bF8yZUTkS0x0CkOiUgD7 HNbpF3WiTWWznxxbRt33 yG2uWvSoBaE0UXzc Y2DqfqY2VTSavRTpUJll SFV3J87lw3Z0QSKuMBHt FXW3dIA6jR1tkYplboyj bGVmdDsgdmVydGlj TJemRXxlI809HAVscDpi PkNvZGluZyBEYXRlOiAg MDMvMzAvMjAyMzwvdGQ+ XAPjILP6vXckWUIv hMSiOEdzCj6fkEqglUac XP1mBVPmbhfyQKMesT6m GZTbgRHcuLnsTL9pQXKu xqixc351SsNvZZH2 XLVvaBIaQ7TbaW3cDxCe RUJrOFHuJ9JieDKiWGec B878ZHazPzA6MFToupVu W5BnHHAghXakObU8 k0G1Ev1Gg6ZxovpcV7Xt yHWmAjPxEodaUYv7Z1Hg PjwvdHI+LR91ELSqDV71 XIt7QKZ1cSvuYRlq QKZdV0VurM5qEpRsBCMk ZGRkOyc+PHRhYmxlIHdp ZHRoPScxMDAlJyBzdHls RQ2uHi6yUUOkKVTt iWxvxIHzMoBap7uvZAKu LDwkAZ5smVdpF4OglFX1 TCCsl3s8Je56U29rB5Ic dXA+EAUjoCX0kGH9 vK5eFyUkKdH0SHslP345 CaPlmZGbJuiij3isb2hr pNy2VrE4TTOigrXgdAav HOG3x2IqYx85T37d IHdpZHRoPSIxNSUiIHZh rKkjaj4ulS6eHf4+PGNv sFS2tTA3yJ7pUfXgIrB8 NZgcV759QmHrnGGy Pvamv2awv7fqyEk0SvAz NYCxzfSnqViwWSB1i2Gr Wo03N0MwzIlwr8YcOqd7 oh95vSDib2A5xDS4 T9DoGGCzyrxuuNOkdPix TK1vFZSzvxosBSWtzG9i NHOqA4q6EhOfXeO5DZwn W2RjxeT1ITMurUTv SPNazBCQpS2xmvnhl7hc aowyStJrPSBuRJe2OHh3 RIFgwCouClAiOAN7VfW7 QTK4kUMfdY1grBro abdhnP3hUfa+CZG0rTHk bBKDJY6dEnounSY+PHRk YSN5iCtwZAhiUAEeaF2v LNWaE6u9YrPzKzJ8 XEfyS6FbpsB7ZSRchIHh MBXqeHQLuS7zbgcjx2yc zybgWdJxBBYsUEq0FIu9 LWFsaWduOiBsZWZ0 UoR1FZH6rUIawV8agBqk ezyzpA4lRip+QmlydGgg RRM0EYn9C2SvZqx0FDCl zDcfBF9rkPGbUJra Xd3vbSmohUbeEJ1cMDUa rakfh911CeRbo9isMBBi iRGdSOzxQYH3K87rn5N5 BOUeCJYcETN2wTC5 mS0mfWkfctqzuYDutEgg zzKrmNgeYZrsGFsdY443 PYKecUnoDhUxLJe4H0Fo Rdw3CQWfkGykNZ8x kKPoEYylTu9nuDhnrZqp YQ8qVHOaroyzt079IbGw v1tgMNTkqZItPPpnGXE2 H41ku0D3QYZjTBFg FGJ4lBT6xQ7dlLnfjhcn bGVmdDsgdmVydGljYWwt HGsjR016KGZgoZikAhOl xPk6O8WqZcq4BHRt nThbIP6ltZNoPHjwJt0e wWoudEevZI0eOSQscodi a806EsGbm9kqEYKvtOKg GKmdOSK4Z58rk4M3 RQVaRPGyKHX9jZT0fT0g bGlnbjogbGVmdDsgdmVy kGvvTUfgTVmhF017OIIb cDsnPlBhdGllbnQg CPtzDBs6Q1PjOadiuZK+ FP54AVAwOH11zREqdPYk v3naqWc9PgOaQTRsKXQ2 oFuiGXmwt1KwETDx U95cyTQvx8K2CZFfmZya vTXtDuKtnRO2vO2nTNov nfjki4vigzieCnzsi5hv ji81lC11D27pAQgx ZHRoPSIzMCUiIHZhbGln fq4neT7aOd2+PGNvbCB3 nCR5bJ6hUWZoPbH8NItl V906LvPejAVtZbay d7oym2fedGm6ZpO1CENc lxLytTyzITJ0l7TaFk04 N71hITbtRDTxAPTgHDIe PIZysKztef0reK0i Ii8+RFEjjKV4qBM4oJ6p BxXdGoW0JVeyE693HjAu yUAiTfpfT76eX2BwkOU+ PJPwUyd2FIWjwCti QU0ryMNdFLmoXg5yXXV5 HhFfYiMgLUdgZ2LoEPDw sumofompxYO0XZYvMSCi xT86De2vpAciRHFt fLPQiU0fxmamw9csyyzj LzRlYMBgXZu3NSr6PGSu nAslCzFmYUP4YfQ8KOJ0 xEUzsU3frVwwxobo fL6gN0QnFWBidssaLz60 uI2cEdBkZjZ9AVbjYni+ V9RVPmRQZGACRZNBA6NH TkUgQTwvdGQ+PHRk ZTH4jVokQQwjDHEouL3t DCIxG5k0GvJcHtE7KNhx V4LaYGZoivneHc96pT9v PcJsAzS3ANpjG1Pg caP5IGQbsHMyCMkvLBU9 L38aj9G8CNYpAJZjSYV4 zTM2sG2ubOyacmqvrYUo dDsgdmVydGljYWwt JMbxN393BQByhLlrJnZm IsBxMoN6QMQ5B1IgQzb5 JWUudXukWT3teYNhUHvv Hd7fvCgpdIyoJD5c XVGmdbwiLYRujW8wRVKa iLZgeFklIT7kTEUbvxmv j965NdWuXON2DTJkhSEn V7FbzT4pHrCnXTOk KSBcN4CjsEGvGVunY188 APpkYuO6EBRjzyRgF4Gh LQSwvQsmMtG3u1C7Ok80 MCBZZWFyczwvdGQ+ SXXdDBF0iNciDZpqJBMc jJ6hZKKvT7z3VxQuYqC0 SGahQ5VyZJHbnqkwPi49 bP8rBvPeXlB5YVop X7TlkeT4OAMrhIKdBKnp JYP9R16ph3X5IKBhIQKg DPJ4qNS5xY8fsJmjjsid bGVmdDsgdmVydGlj LFsnJQiwD589LSTvlRfm PkZlbWFsZTwvdGQ+PHRk CPJ2fIqgEXzdVIVyxG6q XOXsE6x8QdOqSdM3 PMviB2BeTPZegfexOk34 qB4vSwTqLrG9ABwcV3Um npD7DFQhrPSoTFxxBHY3 J85tj0Z6EUYtLWVh XCW5oPK9aS0ugLfkdszn bGVmdDsgdmVydGljYWwt BPviO160QGRpyKiaJl66 fFUjlDzwntH5R9Nv PjwvdHI+ZK05JFUlHF09 gJSqwKOfj0josPu5EeNp XFQbFTS7gQemNFhun2Hu CPOxG45tnYOst7Z2 IGNvbGxhcHNlOyBlbXB0 fF3gQMnykmpoo7fsakze Gwalv1cbmh43uH23B12x IHdpZHRoPSIzMCUi ZSJrmQjdjq8gzZ1nWk3+ JOGysWX6sNP7hU6aMvHy RdR1TCwbH109PkGrzLCr Cmsmi3bpq0cchJz0 IjIwJSIgdmFsaWduPSJ0 u4KgHd09R62aDTubSFCr RUPrBLAuPOAlaJkjmn8s aQ4rNu5+AZ7az6lo di78fD62uLT+PHRkIHN0 fQqbISbgYBDapF9wDRxs CcT6HRZsAhNwcA88hQTd AXwqQi5dqQldeMqo UD3bARQatxuzv755QwNs c3xdTLNudRMeSIwlZPY7 Q83pz7F7BHWrKXEuKQQ5 rEH3cB9yoAoeubgv bGVmdDsgdmVydGljYWwt FZjeP439DJJlfGklWgZd vLJlH5vzmcNHNB2nGivb dGQ+VPVoFEQ1zPol QNiwYCGqzV4bWAVyW1e7 KpQbJdG2JTsoC4VuplP9 FFFimXCaAZJujCEPdZ4o yxgzk7jkeezdRkBj VLAnMBo9XMq9WHWpwFxw KeZoUIZ6UgV3OOL1nBYd cO4xaFwlsefzyC3oTcb+ RklOOjwvdGQ+PHRk XDM4fMzwNXcvOWPbfO4d GMTqP7z3AeCzTeC2GGis A9HzmuU4FLWfqBNzYKPk nZPIaZ0ouczth4qd xhnaUtNeNQNoNKm4DGc3 TZHtsYseFrDlZMN8FgR4 FWL9uGZleB7zaCjaebiq hO9nEwb+TVJOOjwv dGQ+RGLmTZG3qZptTShf VNIkoK1yPZOxD0n2ViKj IpT8FNoxC3ImpyP8GRPo yBEbMNOgyTJEeB2h flzpc8gqejflCzDdLZPd TJu9LBz6IXLcrOhwSrPj TWK5YaF0VLT4oVHqkF8y wVqzlfktxY8zAvo+ MLY6KJF7VW51TU82S9Wm PjwvdGFibGU+PHRhYmxl IHdpZHRoPScxMDAlJyBz eNysRJ6yCy3uNBLi LWNvbGxh (more content not included)... [facility] Consent for Procedure/Surger yon 07-17-2022 Consent for Procedure/Surgery [id number] 0#1.00CD:127 Normal [facility] Consent for Treatmenton 03-2 Consent for Treatment [id number] #1.00CD:127 [facility] IntraOperative Documentson 0 07-17-2022 IntraOperative Documents [id number] 2#1.00CD:127 [facility] Main OR Intraoperative Recor don 07-17-2022 Main OR Intraoperative Record IntraOp Document Type FTURO Summary Primary Physician: Iván TOMLIN MD Finalized Date/Time: 07/17/22 09:10:19 Pt. Name: PEG HADLEY/Sex: 1950 Female Med Rec #: [id number] Physician: Iván TOMLIN MD Financial #: [id number] Pt. Type: O Room/Bed: / Admit/Disch: 07/17/22 08:15:03 - Institution: Case Times FTURO Entry 1 Patient Times In Room 07/17/22 09:02:00 Out Room 07/17/22 09:15:00 Procedure Times Start 07/17/22 09:05:00 Stop 07/17/22 09:10:00 Anesthesia Times Last Modified By: Kusum BELL, Stefani COLMENARES 07/17/22 09:08:13 Case Attendance FTURO Entry 1 Entry 2 Entry 3 Case Attendee Iván TOMLIN MD, RN, KRISTIANOR, Lorraine BARNES, Palma Ko Role Performed Surgeon - Primary Siding Installer - Primary Scrub - Primary Time In 07/17/22 09:02:00 07/17/22 09:02:00 07/17/22 09:02:00 Time Out 07/17/22 09:15:00 07/17/22 09:15:00 07/17/22 09:15:00 Procedure CYSTOSCOPY LOCAL(.) CYSTOSCOPY LOCAL(.) CYSTOSCOPY LOCAL(.) Comments Last Modified By: Kusum BELL, CNOR, Kusum BELL, KRISTIANOR, Kusum BELL, KRISTIANOR, Stefani 07/17/22 Stefani 07/17/22 Stefani 07/17/22 09:08:16 09:08:16 09:08:16 Surgical Procedures FTURO Entry 1 Procedure Description Procedure CYSTOSCOPY LOCAL Modifiers . Surgeon Description cysto Primary Procedure Yes Primary Surgeon Iván TOMLIN MD Start 07/17/22 09:05:00 Stop 07/17/22 09:10:00 Anesthesia Type Local Surgical Service Urology Wound Class 2 - Clean-Contaminated Last Modified By: Kusum BELL, KRISTIANOR, Stefani 07/17/22 09:08:19 General Case Data FTURO Pre-Care Text: Classifies surgical wound, implements aseptic technique, initiates traffic control Entry 1 Case Information OR URO 1 FT Case Level None Wound Class 2 - Clean-Contaminated Specialty Urology Preop Diagnosis HEMATURIA Postop Same As Preop No Postop Diagnosis clear bladder Outcomes Met? Yes Last Modified By: Kusum BELL, KRISTIANOR, Stefani 07/17/22 09:08:36 Post-Care Text: The patient is [...] Out Iván TOMLIN MD, Verified (If Participants Kusum BELL, CNOR, Applicable) Lorraine Ko CST, Palma Flynn Time Out Complete 07/17/22 09:03:00 Allergies Reviewed? [...] DEDRA Noe RN, Ruthann 07/17/22 09:10 Normal [facility] Main OR Preoperative Recordo n 07-17-2022 Main OR Preoperative Record Holding Area Document Type FTURO Summary Primary Physician: Iván TOMLIN MD Finalized Date/Time: 07/17/22 09:04:54 Pt. Name: PEG HADLEY/Sex: 1950 Female Med Rec #: [id number] Physician: Iván TOMLIN MD Financial #: [id number] Pt. Type: O Room/Bed: / Admit/Disch: 07/17/22 [...] No Pain Comment: na Skin Integrity Intact, [place], Warm, & Dry Vitals - EU Blood Pressure 135/82 Pulse 65 bpm Respirations 16 br/min SPO2 96 % RN Reviewed Yes Last Modified By: DEDRA Noe RN, Ruthann 07/17/22 09:04:49 General Comments: temp:36.4 Finalized By: DEDRA Noe RN, Ruthann Document Signatures Signed By: Maeve Florian LPN 07/17/22 08:41 DEDRA Noe RN, Ruthann 07/17/22 09:04 Normal [facility] Operative Reporton Operative Report Patient: [...] follow-up on a as needed basis.. Normal [facility] Comment on above: Result Comment: Elec tronically Signed By: KELLY BLACKMON, Iván Oates\Date and Time Signed: 07/17/22 09:13 EDT RAD - Ultrasound Reporton RAD - Ultrasound Report [id number] #1.00CD:127 Normal [facility] Urine Cytology ([facility])on 0 07-09-2022 Urine Cytology Diagnosis Info Invalid Interpretation Code [facility] Comment on above: Result Comment: A:Ur ine,Urine:Voided Interpretation - MicroScopic Description - Adequacy - Gross Description Site ID:A color Light Yellow fixative Alcohol Specimen designated Urine received in alcohol preservative and labeled with the patient?s name, consists of 40ml clear light yellow fluid. Electronically signed by : on: 07/09/2022 15:10:50 Performed By: #### 1 [id number] ####[facility] [address] [place] [address] US KIDNEYSon 07-07-2022 US KIDNEYS EXAM: US [...] by: DANIELLE CAM Date: 2022-07-07 10:33 Normal [facility] Formson 07-03-2022 Forms [id number] #1.00CD:127 Normal [facility] Physician Referralon 023 Physician Referral [id number] #1.00CD:127 [facility] Pre-Certification Formon Pre-Certification Form [id number] 8#1.00CD:127 [facility] Ambulatory Visit Summaryon 0 07-02-2022 Ambulatory Visit Summary PEG HADLEY :1950 Visit Date:07/02/2022 Ambulatory Visit Instructions Your Diagnosis Microscopic hematuria Tests Performed Urnls Dip Stick Auto w/o Microscopy POC 69393 US Renal -- Results Pending -- Please visit your patient portal for your results or contact your primary care physician. Your Care Team Attending Physician - KELLY BLACKMON, Iván Hsu Primary Care Physician - DAYANA PEPPER CNP Referring Physician - AUDIE TRUONG MD This Is Your Medications List Contact prescribing physician if questions or concerns APAP/ASA/caffeine (Excedrin Migraine) aspirin (aspirin 81 mg oral tablet) dicyclomine (dicyclomine 20 mg Tab) fluticasone nasal (fluticasone 0.05 mg/inh Nasal [place]) hyoscyamine (hyoscyamine 0.125 mg oral Tab) levothyroxine [...] Mckeon When: Where: [facility] [address], [place] [address]- Medications What How Much When Instructions Unchanged [...] fluticasone nasal (fluticasone 0.05 mg/ inh Nasal [place]) 2 Sprays Nasal Inhalation Every day each [...] Urnls Dip Stick Auto w/o Microscopy POC 61574 (07/02/2022) Bilirubin Urine Dipstick - Negative Blood Urine Dipstick - Trace-lysed Glucose Urine Dipstick - Negative Ketones Urine Dipstick - Negative Leukocytes Urine Dipstick - Negative Nitrite Urine Dipstick - Negative Protein Urine Dipstick - Negative Specific [place] Urine Dipstick - >=1.030 Urine Appearance Urine [...] include: ? (more content not included)... Normal [facility] Patient Educationon 07-03-19 Patient Education [...] these instructions at home: Medicines ? Take hzpb-qay-xgbqqto and prescription medicines only as told by [...] the blood stops without treatment. ? Take snjn-upi-pfdaqju and prescription medicines only as told by [...] Reviewed: 05/11/2017 Elsevier Patient Education ? 2019 [email or web address] Normal [facility] Urine Cytology ([facility])on 0 07-02-2022 Method of Extraction Voided Normal [facility] Comment on above: Performed By: #### 1 [id number] ####[facility] [id number] [facility] [place] [address] Number of Jars 1 Invalid Interpretation Code [facility] Comment on above: Performed By: #### 1 [id number] ####[facility] [address] [facility] [place] [address] Specimen Urine Normal [facility] Comment on above: Performed By: #### 1 [id number] ####[facility] [id number] [facility] [place] [address] Type of Service Technical Only Normal Fi [facility] Comment on above: Performed By: #### 1 [id number] ####[facility] [address] [facility] [place] [address] PTH INTACTon 05-22-2022 PTH, Intact 75 pg/mL Critically high 15-65 [facility] Comment on above: Performed By: #### P THINT #### [facility] [address] [place] [address] Dr. Andrea Mccarthy FERRITINon 05-21-2022 Ferritin [Mass/Vol] 124.0 ng/mL Normal 8.0-252.0 [facility] Comment on above: Performed By: #### U KIM, MG, PHOS #### [facility] [address] [address] [address] Andrea Mccarthy HEMOGRAM AND PLATELon 2022 Hematocrit (Bld) [Volume fraction] 40.1 % Normal 36.0-48.0 [facility] Comment on above: Performed By: #### U KIM, MG, PHOS #### [facility] [address] [place] [address] Dr. Andrea Mccarthy Hemoglobin (Bld) [Mass/Vol] 13.2 g/dL Normal 12.0-16.0 [facility] Comment on above: Performed By: #### U KIM, MG, PHOS #### [facility] [address] [place] [address] Dr. Andrea Mccarthy MCH (RBC) [Entitic mass] 28.0 pg Normal 26.7-34.0 [facility] Comment on above: Performed By: #### U KIM, MG, PHOS #### [facility] [address] [place] [address] Dr. Andrea Mccarthy MCHC (RBC) [Mass/Vol] 32.9 g/dL Normal 29.9-35.2 [facility] Comment on above: Performed By: #### U KIM, MG, PHOS #### [facility] [address] [place] [address] Dr. Andrea Mccarthy MCV (RBC) [Entitic vol] 85.1 fL Normal 81.0-99.0 [facility] Comment on above: Performed By: #### U KIM, MG, PHOS #### [facility] [address] [place] [address] Dr. Andrea Mccarthy PLT 255 103/ul Normal 150-450 [facility] Comment on above: Performed By: #### U KIM, MG, PHOS #### [facility] [address] [place] [address] Dr. Andrea Mccarthy RBC 4.71 106/ul Normal 4.20-5.40 [facility] Comment on above: Performed By: #### U KIM, MG, PHOS #### [facility] [address] [place] [address] Dr. Andrea Mccarthy WBC 5.9 103/ul Normal 4.0-11.0 [facility] Comment on above: Performed By: #### U KIM, MG, PHOS #### [facility] [address] [place] [address] Dr. Andrea Mccarthy IRON AND TIBCon 05-21-2022 % SATURATION 18.5 % Normal [facility] Comment on above: Performed By: #### U KIM, MG, PHOS #### [facility] [address] [place] [address] Dr. Andrea Mccarthy Iron [Mass/Vol] 51.0 ug/dL Normal 50.0-170.0 [facility] Comment on above: Performed By: #### U KIM, MG, PHOS #### [facility] [address] [address] [address] Andrea Mccarthy TIBC DIRECT 276.0 ug/dL Normal 250.0-450.0 [facility] Comment on above: Performed By: #### U KIM, MG, PHOS #### [facility] [address] [address] [address] Andrea Mccarthy MAGNESIUMon 05-21-2022 Magnesium [Mass/Vol] 1.8 mg/dL Normal 1.8-2.[address] [facility] Comment on above: Performed By: #### U KIM, MG, PHOS #### [facility] [address] [place] [address] Dr. Andrea Mccarthy RENAL FUNCTION PANELon 05-21 Albumin [Mass/Vol] 3.5 g/dL Normal 3.4-5.0 [facility] Comment on above: Performed By: #### U KIM, MG, PHOS #### [facility] [address] [address] [address] Andrea Mccarthy Calcium [Mass/Vol] 8.5 mg/dL Normal 8.5-10.1 [facility] Comment on above: Performed By: #### U KIM, MG, PHOS #### [facility] [address] [address] [address] Andrea Mccarthy Chloride [Moles/Vol] 104 mmol/L Normal 98-[address] [facility] Comment on above: Performed By: #### U KIM, MG, PHOS #### [facility] [address] [address] [address] Andrea Mccarthy CO2 [Moles/Vol] 29.6 mmol/L Normal 21.0-32.0 [facility] Comment on above: Performed By: #### U KIM, MG, PHOS #### [facility] [address] [address] [address] Andrea Mccarthy Creatinine [Mass/Vol] 1.23 mg/dL Critically high 0.55-1.[address] [facility] Comment on above: Performed By: #### U KIM, MG, PHOS #### [facility] [address] [address] [address] Andrea Mccarthy EGFR-AF TUNISIAN 52 mL/min/1.73m2 Critically low >=60 [facility] Comment on above: Performed By: #### U KIM, MG, PHOS #### [facility] [address] [address] [address] Andrea Mccarthy EGFR-NON AF TUNISIAN 43 mL/min/1.73m2 Critically low >=60 [facility] Comment on above: Performed By: #### U KIM, MG, PHOS #### [facility] [address] [place] [address] Dr. Andrea Mccarthy Glucose [Mass/Vol] 92 mg/dL Normal 74-106 [facility] Comment on above: Performed By: #### U KIM, MG, PHOS #### [facility] [address] [place] [address] Dr. Andrea Mccarthy Phosphate [Mass/Vol] 3.3 mg/dL Normal 2.6-4.7 [facility] Comment on above: Performed By: #### U KIM, MG, PHOS #### [facility] [address] [place] [address] Dr. Andrea Mccarthy Potassium [Moles/Vol] 3.9 mmol/L Normal 3.5-5.1 [facility] Comment on above: Performed By: #### U KIM, MG, PHOS #### [facility] [address] [place] [address] Dr. Andrea Mccarthy Sodium [Moles/Vol] 141 mmol/L Normal 136-145 [facility] Comment on above: Performed By: #### U KIM, MG, PHOS #### [facility] [address] [place] [address] Dr. Andrea Mccarthy Urea nitrogen [Mass/Vol] 25.0 mg/dL Critically high 7.0-18.0 [facility] Comment on above: Performed By: #### U KIM, MG, PHOS #### [facility] [address] [address] [address] Andrea Mccarthy UA RANDOM W/MICROSCOPICon BACTERIA NONE SEEN Normal NONE SEEN The [facility] Comment on above: Performed By: #### U AMIC #### [facility] [address] [place] [address] Dr. Andrea Mccarthy Bilirubin Ql (U) Negative Normal NEGATIVE [facility] Comment on above: Performed By: #### U AMIC #### [facility] [address] [address] [address] Andrea Mccarthy CAST NONE SEEN Normal NONE SEEN The [facility] Comment on above: Performed By: #### U AMIC #### [facility] [address] [place] [address] Dr. Andrea Mccarthy Clarity (U) CLEAR Normal CLEAR [facility] Comment on above: Performed By: #### U AMIC #### [facility] [address] [place] [address] Dr. Andrea Mccarthy Color (U) YELLOW Normal YELLOW The [facility] Comment on above: Performed By: #### U AMIC #### [facility] [address] [place] [address] Dr. Andrea Mccarthy Crystals LM Nom (Urine sed) NONE SEEN Normal NONE SEEN The [facility] Comment on above: Performed By: #### U AMIC #### [facility] [address] [place] [address] Dr. Andrea Mccarthy Epithelial cells LM Ql (Urine sed) FEW Abnormal NONE SEEN /RARE The [facility] Comment on above: Performed By: #### U AMIC #### [facility] [address] [place] [address] Dr. Andrea Mccarthy Glucose Ql (U) Negative Normal NEGATIVE [facility] Comment on above: Performed By: #### U AMIC #### [facility] [address] [place] [address] Dr. Andrea Mccarthy Hemoglobin Ql (U) TRACE-INTACT Abnormal NEGATIVE [facility] Comment on above: Performed By: #### U AMIC #### [facility] [address] [place] [address] Dr. Andrea Mccarthy Ketones Ql (U) Negative Normal NEGATIVE [facility] Comment on above: Performed By: #### U AMIC #### [facility] [address] [place] [address] Dr. Andrea Mccarthy LEUKOCYTES Negative Normal NEGATIVE The [facility] Comment on above: Performed By: #### U AMIC #### [facility] [address] [place] [address] Dr. Andrea Mccarthy MUCOUS TRACE Abnormal NONE SEEN [facility] Comment on above: Performed By: #### U AMIC #### [facility] [address] [place] [address] Dr. Andrea Mccarthy Nitrite Ql (U) Negative Normal NEGATIVE [facility] Comment on above: Performed By: #### U AMIC #### [facility] [address] [place] [address] Dr. Andrea Mccarthy pH (U) 5.0 [pH] Normal 5-[address] [facility] Comment on above: Performed By: #### U AMIC #### [facility] [address] [place] [address] Dr. Andrea Mccarthy RBC 0-2 Normal 0-[address] [facility] Comment on above: Performed By: #### U AMIC #### [facility] [address] [place] [address] Dr. Andrea Mccarthy SPEC GRAVITY 1.025 Normal 1.005-<=1.025 [facility] Comment on above: Performed By: #### U AMIC #### [facility] [address] [place] [address] Dr. Andrea Mccarthy UA PROTEIN Negative Normal NEGATIVE/ TRACE The [facility] Comment on above: Performed By: #### U AMIC #### [facility] [address] [place] [address] Dr. Andrea Mccarthy Urobilinogen Qn (U) 0.2 {Mikel'U}/dL Normal 0.2 - 1. 0 [facility] Comment on above: Performed By: #### U AMIC #### [facility] [address] [place] [address] Dr. Andrea Mccarthy WBC NONE SEEN Normal NONE SEEN The [facility] Comment on above: Performed By: #### U AMIC #### [facility] [address] [address] [address] Andrea Mccarthy URINE T PROTEIN CREAT RATIOo n 05-21-2022 Protein (U) [Mass/Vol] 21.5 mg/dL Critically high <=12.0 [facility] Comment on above: Performed By: #### U KIM, MG, PHOS #### [facility] [address] [address] [address] Andrea Mccarthy UR PROT CREAT RAT 0.15 Normal [facility] Comment on above: Performed By: #### U KIM, MG, PHOS #### [facility] [address] [place] [address] Dr. Andrea Mccarthy URINE CREAT 144.81 mg/dL Normal 20.00-300.00 [facility] Comment on above: Performed By: #### U KIM, MG, PHOS #### [facility] [address] [place] [address] Dr. Andrea Mccarthy VIT B12 AND FOLATEon 023 Cobalamin (Vitamin B12) [Mass/Vol] 1425.0 pg/mL Critically high 193.0-986.0 [facility] Comment on above: Performed By: #### U KIM, MG, PHOS #### [facility] [address] [place] [address] Dr. Andrea Mccarthy FOLATE 22.60 ng/mL Normal 8.60-58.90 [facility] Comment on above: Performed By: #### U KIM, MG, PHOS #### [facility] [address] [place] [address] SINUSES WO CONon 01-02-20 CT SINUSES WO CON EXAMINATION: CT SINUSES [...] STEPHEN ROBLES Date: 2022-01-01 07:30 Normal [facility] INSULINon 11-15-2021 Insulin 9.0 uIU/mL Normal 2.6-24.9 [facility] Comment on above: Performed By: #### I NSULIN #### [facility] [address] [place], [place] [address] Dr. Andrea Mccarthy PTH INTACTon 11-15-2021 PTH, Intact 43 pg/mL Normal 15-65 [facility] Comment on above: Performed By: #### U KIM, MG, PHOS #### [facility] [address] [place], [place] [address] Dr. Andrea Mccarthy VIT D 25-[place] [facility] 2021 Vitamin D, 25-Hydroxy 85.4 ng/mL Normal 30.0-100.[address] [facility] Comment on above: Result Comment: Samina min D deficiency has been defined by the [employer] of [employer] and an Endocrine Society practice guideline as a level of serum 25-OH vitamin D less than 20 ng/mL (1,2). The Endocrine Society went on to further define vitamin D insufficiency as a level between 21 and 29 ng/mL (2). 1. IOM ([employer] of [employer]). 2010. Dietary reference intakes for calcium and D. [place]: The National Academies Press. 2. Dagoberto MF, Rachel GARDNER, Edilson MARTINEZ, et al. Evaluation, treatment, and prevention of vitamin D deficiency: an Endocrine Society clinical practice guideline. JCEM. 2010; 96(7):1911-30. Performed By: #### V ITADLC #### [facility] [address] [place] [address] Dr. Andrea Mccarthy CBC AUTO DIFFon 11-14-2021 BASO # 0.0 103/ul Normal 0.0-0.1 [facility] Comment on above: Performed By: #### U KIM, MG, PHOS #### [facility] [address] [place] [address] Dr. Andrea Mccarthy Basophils/100 WBC (Bld) 0.6 % Normal 0.2-2.0 [facility] Comment on above: Performed By: #### U KIM, MG, PHOS #### [facility] [address] [place] [address] Dr. Andrea Mccarthy EO # 0.2 103/ul Normal 0.0-0.7 [facility] Comment on above: Performed By: #### U KIM, MG, PHOS #### [facility] [address] [place] [address] Dr. Andrea Mccarthy Eosinophils/100 WBC (Bld) 2.4 % Normal 0.9-7.0 [facility] Comment on above: Performed By: #### U KIM, MG, PHOS #### [facility] [address] [place] [address] Dr. Andrea Mccarthy Erythrocyte distribution width (RBC) [Ratio] 14.0 % Normal 11.0-15.0 [facility] Comment on above: Performed By: #### U KIM, MG, PHOS #### [facility] [address] [place] [address] Dr. Andrea Mccarthy Hematocrit (Bld) [Volume fraction] 35.7 % Critically low 36.0-48.0 [facility] Comment on above: Performed By: #### U KIM, MG, PHOS #### [facility] [address] [place] [address] Dr. Andrea Mccarthy Hemoglobin (Bld) [Mass/Vol] 11.2 g/dL Critically low 12.0-16.[address] [facility] Comment on above: Performed By: #### U KIM, MG, PHOS #### [facility] [address] [place] [address] Dr. Andrea Mccarthy IG # 0.02 10e3/ul Normal 0.00-0.03 [facility] Comment on above: Performed By: #### U KIM, MG, PHOS #### [facility] [address] [place] [address] Dr. Andrea Mccarthy IG % 0.3 % Normal 0.0-0.5 [facility] Comment on above: Performed By: #### U KIM, MG, PHOS #### [facility] [address] [place] [address] Dr. Andrea Mccarthy LYMPH # 1.8 103/ul Normal 1.2-3.[address] [facility] Comment on above: Performed By: #### U KIM, MG, PHOS #### [facility] [address] [place] [address] Dr. Andrea Mccarthy Lymphocytes/100 WBC (Bld) 24.9 % Normal 20.5-60.[address] [facility] Comment on above: Performed By: #### U KIM, MG, PHOS #### [facility] [address] [place] [address] Dr. Andrea Mccarthy MANUAL DIFF REQ NO Normal [facility] Comment on above: Performed By: #### U KIM, MG, PHOS #### [facility] [address] [place] [address] Dr. Andrea Mccarthy MCH (RBC) [Entitic mass] 27.3 pg Normal 26.7-34.[address] [facility] Comment on above: Performed By: #### U KIM, MG, PHOS #### [facility] [address] [place] [address] Dr. Andrea Mccarthy MCHC (RBC) [Mass/Vol] 31.4 g/dL Normal 29.9-35.[address] [facility] Comment on above: Performed By: #### U KIM, MG, PHOS #### [facility] [address] [address] [address] Andrea Mccarthy MCV (RBC) [Entitic vol] 87.1 fL Normal 81.0-99.0 [facility] Comment on above: Performed By: #### U KIM, MG, PHOS #### [facility] [address] [place] [address] Dr. Andrea Mccarthy MONO # 0.5 103/ul Normal 0.3-0.[address] [facility] Comment on above: Performed By: #### U KIM, MG, PHOS #### [facility] [address] [place] [address] Dr. Andrea Mccarthy Monocytes/100 WBC (Bld) 7.0 % Normal 1.7-12.0 [facility] Comment on above: Performed By: #### U KIM, MG, PHOS #### [facility] [address] [place] [address] Dr. Andrea Mccarthy NEUT # 4.7 103/ul Normal 1.4-6.5 [facility] Comment on above: Performed By: #### U KIM, MG, PHOS #### [facility] [address] [place] [address] Dr. Andrea Mccarthy Neutrophils/100 WBC (Bld) 64.8 % Normal 43.0-75.0 [facility] Comment on above: Performed By: #### U KIM, MG, PHOS #### [facility] [address] [place] [address] Dr. Andrea Mccarthy Platelet mean volume (Bld) [Entitic vol] 10.1 fL Normal 9.5-13.[address] [facility] Comment on above: Performed By: #### U KIM, MG, PHOS #### [facility] [address] [place] [address] Dr. Andrea Mccarthy PLT 309 103/ul Normal 150-[address] [facility] Comment on above: Performed By: #### U KIM, MG, PHOS #### [facility] [address] [place] [address] Dr. Andrea Mccarthy RBC 4.10 106/ul Critically low 4.20-5.40 [place] Comment on above: Performed By: #### U KIM, MG, PHOS #### [facility] [address] [place] [address] Dr. Andrea Mccarthy WBC 7.2 103/ul Normal 4.0-11.0 [facility] Comment on above: Performed By: #### U KIM, MG, PHOS #### [facility] [address] [place] [address] Dr. Andrea Mccarthy FREE THYROXINE INDEX T7on FTI 4.14 Normal 1.30-4.50 [facility] Comment on above: Performed By: #### U KIM, MG, PHOS #### [facility] [address] [place] [address] Dr. Andrea Mccarthy T3U 36.0 % Normal 30.0-39.0 [facility] Comment on above: Performed By: #### U KIM, MG, PHOS #### [facility] [address] [place] [address] Dr. Andrea Mccarthy T4 [Mass/Vol] 11.50 ug/dL Normal 4.80-13.90 [facility] Comment on above: Performed By: #### U KIM, MG, PHOS #### [facility] [address] [place] [address] Dr. Andrea Mccarthy GLYCOHEMOGLOBIN A1Con 2021 ADA RECOMMENDATION SEE BELOW Normal [facility] Comment on above: Result Comment: ADA RECOMMENDED LIMIT 4.0 - 6.0 ADA THERAPEUTIC TARGET < 7.0 ACTION SUGGESTED > 7.0 Performed By: #### A 1C #### [facility] [address] [place] [address] Dr. Andrea Mccarthy Glucose [Mass/Vol] 137 mg/dL Normal [facility] Comment on above: Performed By: #### A 1C #### [facility] [address] [place] [address] Dr. Andrea Mccarthy HbA1c (Bld) [Mass fraction] 6.4 % Critically high 4.5-6.2 [facility] Comment on above: Performed By: #### A 1C #### [facility] [address] [address] [address] Andrea Mccarthy IRONon 11-14-2021 Iron [Mass/Vol] 34.0 ug/dL Critically low 50.0-170.0 [facility] Comment on above: Performed By: #### U KIM, MG, PHOS #### [facility] [address] [address] [address] Andrea Mccarthy LIPID PROFILEon 11-14-2021 CHOL-HDL RATIO NORM SEE BELOW Normal [facility] Comment on above: Result Comment: 3.3 - 4.4 LOW RISK 4.4 - 7.1 AVERAGE RISK 7.1 - 11.0 MODERATE RISK >11.0 HIGH RISK Performed By: #### L IPID, TSH, T7, CMP #### [facility] [address] [address] [address] Andrea Mccarthy Cholesterol [Mass/Vol] 152 mg/dL Normal <=200 [facility] Comment on above: Performed By: #### L IPID, TSH, T7, CMP #### [facility] [address] [address] [address] Andrea Mccarthy Cholesterol in HDL [Mass/Vol] 51 mg/dL Normal 40-60 [facility] Comment on above: Performed By: #### L IPID, TSH, T7, CMP #### [facility] [address] [address] [address] Andrea Mccarthy Cholesterol in LDL [Mass/Vol] 83.4 mg/dL Normal [facility] Comment on above: Performed By: #### L IPID, TSH, T7, CMP #### [facility] [address] [address] [address] Andrea Mccarthy Cholesterol.total/Ch olesterol in HDL [Mass ratio] 3.0 {ratio} Normal [facility] Comment on above: Performed By: #### L IPID, TSH, T7, CMP #### [facility] [address] [address] [address] Andera Mccarthy HDL NORMAL > or = 60 mg/dl - LOW CARDIOVASCULAR RISK <40 mg/dl - HIGH CARDIOVASCULAR RISK Normal [facility] Comment on above: Performed By: #### L IPID, TSH, T7, CMP #### [facility] [address] [address] [address] Andrea Mccarthy LDL CALC NORMAL SEE BELOW Normal [place] Comment on above: Result Comment: <100 mg/dl OPTIMAL 100 - 129 mg/dl NEAR OR ABOVE OPTIMAL 130 - 159 mg/dl BORDERLINE HIGH 160 - 189 mg/dl HIGH >190 mg/dl VERY HIGH Performed By: #### L IPID, TSH, T7, CMP #### [facility] [address] [address] [address] Andrea Mccarthy Triglyceride [Mass/Vol] 88 mg/dL Normal <=150 [facility] Comment on above: Performed By: #### L IPID, TSH, T7, CMP #### [facility] [address] [address] [address] Andrea Mccarthy VLDL CALC 17.6 mg/dL Normal [facility] Comment on above: Performed By: #### L IPID, TSH, T7, CMP #### [facility] [address] [address] [address] Andrea Mccarthy MAGNESIUMon 11-14-2021 Magnesium [Mass/Vol] 2.2 mg/dL Normal 1.8-2.4 [facility] Comment on above: Performed By: #### U KIM, MG, PHOS #### [facility] [address] [address] [address] Andrea Mccarthy PHOSPHORUSon 11-14-2021 Phosphate [Mass/Vol] 3.0 mg/dL Normal 2.6-4.7 [facility] Comment on above: Performed By: #### U KIM, MG, PHOS #### [facility] [address] [address] [address] Andrea Mccarthy PROF 14(COMP METB)on 022 Albumin [Mass/Vol] 3.2 g/dL Critically low 3.4-5.[address] [facility] Comment on above: Performed By: #### L IPID, TSH, T7, CMP #### [facility] [address] [address] [address] Andrea Mccarthy Albumin/Globulin [Mass ratio] 0.8 {ratio} Normal [facility] Comment on above: Performed By: #### L IPID, TSH, T7, CMP #### [facility] [address] [place] [address] Dr. Andrea Mccarthy ALP [Catalytic activity/Vol] 51 U/L Normal 46-116 [facility] Comment on above: Performed By: #### L IPID, TSH, T7, CMP #### [facility] [address] [place] [address] Dr. Andrea Mccarthy ALT [Catalytic activity/Vol] 13 U/L Critically low 14-59 [facility] Comment on above: Performed By: #### L IPID, TSH, T7, CMP #### [facility] [address] [place] [address] Dr. Andrea Mccarthy Anion gap [Moles/Vol] 11.4 mmol/L Normal [facility] Comment on above: Performed By: #### L IPID, TSH, T7, CMP #### [facility] [address] [place] [address] Dr. Andrea Mccarthy AST [Catalytic activity/Vol] 9 U/L Critically low 15-37 [facility] Comment on above: Performed By: #### L IPID, TSH, T7, CMP #### [facility] [address] [place] [address] Dr. Andrea Mccarthy Bilirubin [Mass/Vol] 0.3 mg/dL Normal 0.2-1.0 [facility] Comment on above: Performed By: #### L IPID, TSH, T7, CMP #### [facility] [address] [place] [address] Dr. Andrea Mccarthy Calcium [Mass/Vol] 8.4 mg/dL Critically low 8.5-10.1 [facility] Comment on above: Performed By: #### L IPID, TSH, T7, CMP #### [facility] [address] [place] [address] Dr. Andrea Mccarthy Chloride [Moles/Vol] 105 mmol/L Normal 98-107 [facility] Comment on above: Performed By: #### L IPID, TSH, T7, CMP #### [facility] [address] [address] [address] Andrea Mccarthy CO2 [Moles/Vol] 27.7 mmol/L Normal 21.0-32.0 [facility] Comment on above: Performed By: #### L IPID, TSH, T7, CMP #### [facility] [address] [address] [address] Andrea Mccarthy Creatinine [Mass/Vol] 1.31 mg/dL Critically high 0.55-1.02 [facility] Comment on above: Performed By: #### L IPID, TSH, T7, CMP #### [facility] [address] [place] [address] Dr. Andrea Mccarthy EGFR-AF TUNISIAN 49 mL/min/1.73m2 Critically low >=60 [facility] Comment on above: Performed By: #### L IPID, TSH, T7, CMP #### [facility] [address] [address] [address] Andrea Mccarthy EGFR-NON AF TUNISIAN 40 mL/min/1.73m2 Critically low >=60 [facility] Comment on above: Performed By: #### L IPID, TSH, T7, CMP #### [facility] [address] [place] [address] Dr. Andrea Mccarthy Globulin (S) [Mass/Vol] 3.9 g/dL Normal [facility] Comment on above: Performed By: #### L IPID, TSH, T7, CMP #### [facility] [address] [place] [address] Dr. Andrea Mccarthy Glucose [Mass/Vol] 97 mg/dL Normal 74-106 [facility] Comment on above: Performed By: #### L IPID, TSH, T7, CMP #### [facility] [address] [place] [address] Dr. Andrea Mccarthy Potassium [Moles/Vol] 4.1 mmol/L Normal 3.5-5.1 [facility] Comment on above: Performed By: #### L IPID, TSH, T7, CMP #### [facility] [address] [place] [address] Dr. Andrea Mccarthy Protein [Mass/Vol] 7.1 g/dL Normal 6.4-8.2 [facility] Comment on above: Performed By: #### L IPID, TSH, T7, CMP #### [facility] [address] [place] [address] Dr. Andrea Mccarthy Sodium [Moles/Vol] 140 mmol/L Normal 136-145 [facility] Comment on above: Performed By: #### L IPID, TSH, T7, CMP #### [facility] [facility] [address] [place] [address] Dr. Andrea Mccarthy Urea nitrogen [Mass/Vol] 23.0 mg/dL Critically high 7.0-18.0 [facility] Comment on above: Performed By: #### L IPID, TSH, T7, CMP #### [facility] [address] [place] [address] Dr. Andrea Mccarthy Urea nitrogen/Creatinine [Mass ratio] 17.6 mg/mg Normal [facility] Comment on above: Performed By: #### L IPID, TSH, T7, CMP #### [facility] [address] [place] [address] Dr. Andrea Mccarthy TSHon 11-14-2021 TSH 0.032 uIU/mL Critically low 0.358-3.740 [facility] Comment on above: Performed By: #### U KIM, MG, PHOS #### [facility] [address] [place] [address] Dr. Andrea Mccarthy UA RANDOM W/MICROSCOPICon BACTERIA NONE SEEN Normal NONE SEEN [facility] Comment on above: Performed By: #### U KIM, MG, PHOS #### [facility] [address] [place] [address] Dr. Andrea Mccarthy Bilirubin Ql (U) Negative Normal NEGATIVE [facility] Comment on above: Performed By: #### U KIM, MG, PHOS #### [facility] [address] [place] [address] Dr. Andrea Mccarthy CAST NONE SEEN Normal NONE SEEN [facility] Comment on above: Performed By: #### U KIM, MG, PHOS #### [facility] [address] [place] [address] Dr. Andrea Mccarthy Clarity (U) CLEAR Normal CLEAR [facility] Comment on above: Performed By: #### U KIM, MG, PHOS #### [facility] [address] [place] [address] Dr. Andrea Mccarthy Color (U) YELLOW Normal YELLOW [facility] Comment on above: Performed By: #### U KIM, MG, PHOS #### [facility] [address] [place] [address] Dr. Andrea Mccarthy Crystals LM Nom (Urine sed) NONE SEEN Normal NONE SEEN [facility] Comment on above: Performed By: #### U KIM, MG, PHOS #### [facility] [address] [place] [address] Dr. Andrea Mccarthy Epithelial cells LM Ql (Urine sed) FEW Abnormal NONE SEEN /RARE [facility] Comment on above: Performed By: #### U KIM, MG, PHOS #### [facility] [address] [place] [address] Dr. Andrea Mccarthy Glucose Ql (U) Negative Normal NEGATIVE [facility] Comment on above: Performed By: #### U KIM, MG, PHOS #### [facility] [address] [place] [address] Dr. Andrea Mccarthy Hemoglobin Ql (U) TRACE-INTACT Abnormal NEGATIVE [facility] Comment on above: Performed By: #### U KIM, MG, PHOS #### [facility] [address] [place] [address] Dr. Andrea Mccarthy Ketones Ql (U) Negative Normal NEGATIVE [facility] Comment on above: Performed By: #### U KIM, MG, PHOS #### [facility] [address] [place] [address] Dr. Andrea Mccarthy LEUKOCYTES Negative Normal NEGATIVE [facility] Comment on above: Performed By: #### U KIM, MG, PHOS #### [facility] [address] [place] [address] Dr. Andrea Mccarthy MUCOUS SMALL Abnormal NONE SEEN [facility] Comment on above: Performed By: #### U KIM, MG, PHOS #### [facility] [address] [place] [address] Dr. Andrea Mcacrthy Nitrite Ql (U) Negative Normal NEGATIVE [facility] Comment on above: Performed By: #### U KIM, MG, PHOS #### [facility] [address] [address] [address] Andrea Mccarthy pH (U) 5.5 [pH] Normal 5-9 [facility] Comment on above: Performed By: #### U KIM, MG, PHOS #### [facility] [address] [place] [address] Dr. Andrea Mccarthy RBC 0-2 Normal 0-2 [facility] Comment on above: Performed By: #### U KIM, MG, PHOS #### [facility] [address] [place] [address] Dr. Andrea Mccarthy SPEC GRAVITY 1.020 Normal 1.005-<=1.025 [place] Comment on above: Performed By: #### U KIM, MG, PHOS #### [facility] [address] [place] [address] Dr. Andrea Mccarthy UA PROTEIN Negative Normal NEGATIVE/ TRACE [facility] Comment on above: Performed By: #### U KIM, MG, PHOS #### [facility] [address] [place] [address] Dr. Andrea Mccarthy Urobilinogen Qn (U) 0.2 {Mikel'U}/dL Normal 0.2 - 1. 0 [facility] Comment on above: Performed By: #### U KIM, MG, PHOS #### [facility] [address] [address] [address] Andrea Mccarthy WBC NONE SEEN Normal NONE SEEN [facility] Comment on above: Performed By: #### U KIM, MG, PHOS #### [facility] [address] [place] [address] Dr. Andrea Mccarthy URIC ACID SERUMon 11-14-2021 Urate [Mass/Vol] 5.0 mg/dL Normal 2.6-6.0 [facility] Comment on above: Performed By: #### U KIM, MG, PHOS #### [facility] [address] [address] [address] Andrea Mccarthy URINE T PROTEIN CREAT RATIOo n 11-14-2021 Protein (U) [Mass/Vol] 22.3 mg/dL Critically high <=12.0 [facility] Comment on above: Performed By: #### U KIM, MG, PHOS #### [facility] [address] [address] [address] Andrea Mccarthy UR PROT CREAT RAT 0.15 Normal [facility] Comment on above: Performed By: #### U KIM, MG, PHOS #### [facility] [address] [address] [address] Andrea Mccarthy URINE CREAT 151.50 mg/dL Normal 20.00-300.00 [place] Comment on above: Performed By: #### U KIM, MG, PHOS #### [facility] [address] [address] [address] Andrea Mccarthy Vital Signs Date Time Vital Sign Value Performing Clinician Facility 05-21-2023 10:40-0500 Body height 162.56 cm Audie Dionne Other [facility] 05-21-2023 10:40-0500 Body mass index (BMI) [Ratio] 29.59 kg/m2 Audie Dionne Other [facility] Other 05-21-2023 10:40-0500 Body temperature 96.3 [degF] Audie Dionne Other [facility] Other 05-21-2023 10:40-0500 Body weight 78.2 kg Audie Dionne Other [facility] Other 05-21-2023 10:40-0500 Diastolic blood pressure 80 mm[Hg] Audie Dionne Other [facility] Other 05-21-2023 10:40-0500 Respiratory rate 18 /min Audie Dionne Other [facility] Other 05-21-2023 10:40-0500 SaO2% (BldA) [Mass fraction] 98 % Audie Dionne Other [facility] Other 05-21-2023 10:40-0500 Systolic blood pressure 118 mm[Hg] Audie Dionne Other [facility] Other 11-19-2022 11:00-0400 Body height 162.56 cm Audie Dionne Other [facility] Other 11-19-2022 11:00-0400 Body mass index (BMI) [Ratio] 28.9 kg/m2 Audie Dionne Other [facility] Other 11-19-2022 11:00-0400 Body temperature 96 [degF] Audie Dionne Other [facility] Other 11-19-2022 11:00-0400 Body weight 76.39 kg Audie Dionne Other [facility] Other 11-19-2022 11:00-0400 Diastolic blood pressure 81 mm[Hg] Audie Dionne Other [facility] Other 11-19-2022 11:00-0400 Respiratory rate 18 /min Audie Dionne Other [facility] Other 11-19-2022 11:00-0400 SaO2% (BldA) [Mass fraction] 98 % Audie Dionne Other [facility] 11-19-2022 11:00-0400 Systolic blood pressure 132 mm[Hg] Audie Dionne Other [facility] Other 07-02-2022 14:17-0400 Blood Pressure Location Iván TOMLIN [facility] 07-02-2022 14:17-0400 Diastolic blood pressure 88 mm[Hg] Iván TOMLIN [facility] 07-02-2022 14:17-0400 Heart rate 71 /min Iván TOMLIN [facility] 07-02-2022 14:17-0400 Systolic blood pressure 128 mm[Hg] Iván TOMLIN [facility] 05-29-2022 10:40-0500 Body height 162.56 cm Audie Dionne Other [facility] 05-29-2022 10:40-0500 Body mass index (BMI) [Ratio] 28.22 kg/m2 Audie Dionne Other [facility] Other 05-29-2022 10:40-0500 Body temperature 96.3 [degF] Audie Dionne Other [facility] Other 05-29-2022 10:40-0500 Body weight 74.57 kg Audie Dionne Other [facility] Other 05-29-2022 10:40-0500 Diastolic blood pressure 81 mm[Hg] Audie Dionne Other [facility] Other 05-29-2022 10:40-0500 Respiratory rate 18 /min Audie Dionne Other [facility] Other 05-29-2022 10:40-0500 SaO2% (BldA) [Mass fraction] 98 % Audie Dionne Other [facility] Other 05-29-2022 10:40-0500 Systolic blood pressure 125 mm[Hg] Audie Dionne Other [facility] Other 11-21-2021 12:40-0400 Body height 162.56 cm Audie Dionne Other [facility] 11-21-2021 12:40-0400 Body mass index (BMI) [Ratio] 28.22 kg/m2 Audie Dionne Other [facility] 11-21-2021 12:40-0400 Body temperature 96.8 [degF] Audie Dionne Other [facility] Other 11-21-2021 12:40-0400 Body weight 74.57 kg Audie Dionne Other [facility] Other 11-21-2021 12:40-0400 Diastolic blood pressure 79 mm[Hg] Audie Dionne Other [facility] Other 11-21-2021 12:40-0400 Respiratory rate 18 /min Audie Dionne Other [facility] Other 11-21-2021 12:40-0400 SaO2% (BldA) [Mass fraction] 98 % Audie Dionne Other [facility] 11-21-2021 12:40-0400 Systolic blood pressure 117 mm[Hg] Audie Dionne Other [facility] 06-01-2021 16:20-0500 Body height 162.56 cm Audie Dionne Other [facility] 06-01-2021 16:20-0500 Body mass index (BMI) [Ratio] 30.89 kg/m2 Audie Dionne Other [facility] 06-01-2021 16:20-0500 Body temperature 96.5 [degF] Audie Dionne Other [facility] Other 06-01-2021 16:20-0500 Body weight 81.65 kg Audie Dionne Other [facility] Other 06-01-2021 16:20-0500 Diastolic blood pressure 80 mm[Hg] Audie Dionne Other [facility] Other 06-01-2021 16:20-0500 Respiratory rate 18 /min Audie Dionne Other [facility] Other 06-01-2021 16:20-0500 SaO2% (BldA) [Mass fraction] 98 % Audie Dionne Other [facility] 06-01-2021 16:20-0500 Systolic blood pressure 119 mm[Hg] Audie Dionne Other [facility] Other 03-27-2021 16:20-0500 Body height 162.56 cm Audie Dionne Other [facility] Other 03-27-2021 16:20-0500 Body mass index (BMI) [Ratio] 31.55 kg/m2 Audie Dionne Other [facility] Other 03-27-2021 16:20-0500 Body temperature 96.5 [degF] Audie Dionne Other [facility] Other 03-27-2021 16:20-0500 Body weight 83.37 kg Audie Dionne Other [facility] Other 03-27-2021 16:20-0500 Diastolic blood pressure 80 mm[Hg] Audie Dionne Other [facility] Other 03-27-2021 16:20-0500 Respiratory rate 18 /min Audie Dionne Other [facility] Other 03-27-2021 16:20-0500 SaO2% (BldA) [Mass fraction] 99 % Audie Dionne Other [facility] Other 03-27-2021 16:20-0500 Systolic blood pressure 119 mm[Hg] Audie Dionne Other [facility] Other Encounters Encounter Date Encounter Type Care Provider Facility Start: 05-21-2023 End: 05-21-2023 ambulatory Audie Dionne Other [facility] Other Start: 05-21-2023 Office outpatient vi sit 25 minutes Audie Dionne [facility] Start: 11-19-2022 End: 11-19-2022 ambulatory Audie Dionne Other [facility] Start: 11-19-2022 Office outpatient vi sit 15 minutes Audie Dionne [facility] Start: 09-06-2022 ambulatory DAYANA LOPEZ Facility: Start: 07-17-2022 End: 07-18-2022 ambulatory Iván TOMLIN Facility:[facility] Start: 07-17-2022 End: 07-17-2022 Patient encounter procedure Iván TOMLIN [facility] Start: 07-07-2022 End: 07-08-[address] IVÁN TOMLIN . Facility: Start: 07-02-2022 End: 07-03-2022 ambulatory MD AUDIE TRUONG Facility:[facility] [place] Start: 07-02-2022 End: 07-02-2022 Patient encounter procedure Iván TOMLIN [facility] Start: 05-31-2022 ambulatory MD AUDIE TRUONG Facility :[facility] [place] Start: 05-29-2022 End: 05-29-2022 ambulatory Audie Dionne Other [facility] Start: 05-29-2022 Office outpatient vi sit 25 minutes Audie Dionne [facility] Start: 05-21-2022 End: 05-22-2022 ambulatory DAYANA LOPEZ Facility:[facility] Start: 12-30-2021 End: 12-31-2021 ambulatory DAYANA LOPEZ Facility:[facility] Start: 11-21-2021 End: 11-21-2021 ambulatory Audie Dionne Other [facility] Other Start: 11-21-2021 Office outpatient vi sit 25 minutes Audie Dionne [facility] Start: 11-14-2021 End: 11-15-2021 ambulatory AUDIE DIONNE Facility:[facility] Start: 06-02-2021 End: 06-02-2021 ambulatory Audie Dionne Other [facility] Start: 06-02-2021 Telephone encounter Audie Dionne [facility] Start: 06-01-2021 End: 06-01-2021 ambulatory Audie Dionne Other [facility] Start: 06-01-2021 Office outpatient vi sit 25 minutes Audie Dionne [facility] Start: 03-27-2021 End: 03-27-2021 ambulatory Audie Dionne Other [facility] Other Start: 03-27-2021 Office outpatient ne w 45 minutes Audie Dionne [facility] Procedures Date Procedure Procedure Detail Performing Clinician Start: 01-08-2019 Esophagogastroduodenoscopy Iván TOMLIN Abdominal hysterectomy Clarence TOMLIN Appendectomy Iván TOMLIN Colonoscopy Iván TOMLIN Payers Date Payer Category Payer Private Health Insurance [id number] 1950 Unknown [id number] 2.16.8 [id number] 1950 Unknown [id number] 2.16.8 [id number] 1950 Unknown [id number] 2.16.84 [id number] 1950 Unknown [id number] 2.16.84 [id number] 1950 Unknown [id number] 2.16.84 [id number] 1950 Unknown [id number] 2.16.84 [id number] 1950 Unknown [id number] 2.16.84 [id number] 1950 Unknown [id number] 2.16.84 [id number] Self-pay Self Pay [id number] Unknown Self Pay [id number] Social History Date Type Detail Facility Tobacco smoking stat [facility] Unknown if ever smoked [facility] Start: 1950 Sex Assigned At Female F [facility] Sex Assigned At [facility] Start: 07-02-2022 Tobacco smoking status Never s moked tobacco (finding) [facility] Tobacco smoking status Never [facility] Goals Date Patient Goal Desired Activity /State Functional Status Date Assessment Result Facility 07-02-2022 Functional Status N/A [facility] Clinical Notes 03-27-2021 to 05-21-2023 Note Date & Type Note Facility 05-21-2023 Evaluation note Encounter Date Diagnosis Assessment Notes Apr, Chronic kidney disease, stage 3b (ICD-10 - N18.32) She has CKD likely due to longstanding hypertension. Her serum creatinine fluctuates between 1.3-1.5 mg/dl. Her renal US showed right renal cyst. She has no evidence of hematuria and proteinuria. I discussed with her the importance of good HTN control to slow down the progression of CKD. 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 She appears to be euvolemic. Continue current Medications. Apr, Secondary hyperparathyroidism (ICD-10 - N25.81) MBD parameters including calcium, phosphorus, PTH and vitamin D are within the goal. Apr, Dyslipidemia (ICD-10 - E78.5) Continue stain. Monitor LFTs and lipid profile periodically. [facility] Other 07-31-2023 Evaluation note* Encounter Date Diagnosis Assessment Notes Treatment Notes Treatment Clinical Notes Oct, Chronic kidney disea se, stage 3b (ICD-10 [...] LFTs and lipid profile periodically. Oct, Microscopic hematuri a (ICD-10 - R31.29) She has persistent trace hematuria on the UA. Will refer to urology for further work-up. Oct, Iron deficiency (ICD -10 - E61.1) Her Hb is within the goal . Continue oral Iron. She had Colonoscopy 2018 and advised to have repeat in 5 yrs [facility] Other 03-28-2023 Note [id number]:127[facility] 07-17-2022 Hospital Discharge instructions Patient [...] With:Iván TOMLIN Address: [facility] [address] , [place] [address]- Business (1) When: Unknown Comments:Call for any problems. [facility]03-28-2023 NoteCustom Cystoscopy ? Voiding after the procedure: [...] if you have a fever over 100 degrees.[facility] 07-02-2022 NoteChief Complaint Pt here [...] When Contact Information KELLY BLACKMON, Iván Hsu, L [facility] [address], [place] [address]- Additional Instructions: schedule cysto, CHRIS Patient Education [...] tab(s), Oral, q6hr fluticasone 0.05 mg/inh Nasal [place], 2 spray(s), Nasal, Daily (more content not included)...[facility] Comment: Electronically Signed By: Iván TOMLIN MD\.br\Date and Time Signed: 07/02/22 14:52 EDT\.br\Electronically Co-Signed By: Estrada, Moira P\.br\Date and Time Co-Signed: 07/02/22 14:50 [id number] Hospital Discharge instructions Patient Education 07/02/2022 14:22:27 [...] Follow these instructions at home: Medicines Take nnoi-hwr-lxmvqzd and prescription medicines only as told by [...] or the blood stops without treatment. Take guqw-nnq-fjfdvsy and prescription medicines only as told by your health care provider. Drink enough fluid to keep your urine clear or pale yellow. This information is not intended to replace advice given to you by your health care provider. Make sure you discuss any questions you have with your health care provider. Document Released: 04/08/2006 Document Revised: 09/02/2019 Document Reviewed: 05/11/2017 [email or web address] Patient Education 2020 [employer] Follow Up Care 05/31/2022 13:31:32 With:KELLY BLACKMON, Iván Hsu, URL Address: [facility] [address] [place] [address]- When: Unknown [facility] 02-07-2023 Evaluation note* Encounter Date Diagnosis Assessment [...] advised to have repeat in 5 yrs [facility] Other 08-02-2022 Evaluation note* Encounter Date Diagnosis [...] down the progression of CKD. Nov, Chris hy kid w cr kid I-IV [...] stain. Monitor LFTs and lipid profile periodically. [facility] Other 02-10-2022 Evaluation note* Encounter Date Diagnosis [...] stain. Monitor LFTs and lipid profile periodically. [facility] Other 12-06-2021 Evaluation note* Encounter Date Diagnosis [...] down the progression of CKD. Mar, Chris terrazas w cr kid I-IV (ICD-10 - I12.9) Blood pressure is controlled. She appears to be euvolemic. Continue current Medications. Mar, Secondary hyperparathyroidism (ICD-10 - N25.81) Calcium within normal limit. We will check PTH and vitamin D. Mar, Osteoporosis (ICD-10 - M81.0) Continue to alendronate and raloxifene. Continue follow with PCP. 06 Dec, 2021 Dyslipidemia (ICD-10 - E78.5) Continue [facility]. Monitor LFTs and lipid profile periodically. [facility] Other Evaluation + Plan note Future Appointments Appointment Date:07/10/2022 11:30:00 AM Scheduled Provider: Location:[facility] Appointment Type:Urology CALL PAT FT Appointment Date:07/17/2022 08:45:00 AM Scheduled Provider: Location:[facility] Appointment Type:Urology FT Diagnostic Tests Pending * Urine Cytology ([facility]) 07/02/22 [facility] evaluation noteNo Assessments Information Available [facility] note[facility] InformationNort Reach [employer] Other History general Narrative - Reported* Type Description Date Medical History HTN Medical History Hypothyroidism Medical History hyperlipidemia Medical History acid reflux Medical History anxiety Medical History PRE DIABETIC Medical History mixed hypercholestolemia Medical History CKD STAGE 3 Medical History INSOMNIA Surgical History hysterectomy, total with BSO Surgical History fallopian tube removed Hospitalization History see above hx Hospitalization History N&V [facility] Other Hisnlsr general Narrative - Reported* Type Description Date Medical History HTN Medical History Hypothyroidism Medical History hyperlipidemia Medical History acid reflux Medical History anxiety Medical History PRE DIABETIC Medical History mixed hypercholestolemia Medical History CKD STAGE 3 Medical History INSOMNIA Medical History COVID 02/11/2023 Medical History COVID 02/28/2023 Medical History VALLEY FEVER Medical History COVID NODULES LUNG WAS FOUND DUR ING ER VISIT Surgical History hysterectomy, total with BSO Surgical History fallopian tube removed Hospitalization History see above hx Hospitalization History N&V [facility] Other Hospital course Narrative No data available for this section [facility] Beep progress note No data available for this section [facility] Beep Summary Purpose Family History No Family History Records FoundNo Family History Records Found Advance Directives No Advanced Directives Records FoundNo Advanced Directives Records Found Additional Source Comments REASON FOR VISIT (unrecogniz ed section and content) RENAL CKD 3CKD and hyperpara thyroidismNo InformationCKD and HTNCKD and HTNCKD and HTNCKD and HTN Patient Care team informatio n (unrecognized section and content) Personnel Name: DAYANA PEPPER CNP Address: Address: [address] [place] [address], [facility], [place] [address]- Personnel Name: DAYANA PEPPER CNP Address: Address: [address] [place] [address], [facility], [place] [address]- INFORMATION SOURCE (unrecogn ized section and content) DATE CREATED AUTHOR 07/24/2022 [facility] DATE CREATED AUTHOR AUTHOR'S ORGANIZ ATION 09/05/2022 [facility] FOR RECORDS PERTAINING TO PATIENTS WHO [...] BE BASED ON THE PRIMARY CLINICAL RECORDS. [facility] [employer] [facility]. provides no warranty or guarantee of the accuracy or completeness of information in this document.
--- NOTE | 2023-06-17 08:59 | CT_ITS ---
The [address] [address] Patient Name: KAREEN HADLEY MRN: [id number] date: 1950 Sex: F Assigned Patient Location: CT Current Patient Location: Accession/Order Number: [id number] Exam Date: 06/17/2023 08:53 Report Date: 06/18/2023 06:05 At the request of: APRIL ZIMMERMAN Procedure: CT chest wo con EXAMINATION: CT chest wo con HISTORY: Abnormal Lung Field Finding R91.8 ; follow-up lung nodule COMPARISON: CT chest 04/03/2023, 03/09/2023 TECHNIQUE: Multi-planar CT images were obtained without and/or with IV contrast as indicated by examination type. Axial, Coronal, and Sagittal images. Dose reduction techniques were achieved by using automated exposure control and/or adjustment of mA and/or kV according to patient size and/or use of iterative reconstruction technique. FINDINGS: LUNGS: Irregular opacity within right middle lobes favoring combination of scarring and infiltrate; continuing to decrease in size. Stable 5 mm nodule within posterior lateral right costophrenic angle suspected represent a granuloma. New 6 mm opacity within anterior lateral left lung apex. A few scattered 2 to 3 mm opacities. PLEURA: No mass, effusion, or pneumothorax. VASCULATURE: No abnormality. KATY: No mass or adenopathy. MEDIASTINUM: No mass or adenopathy. CARDIAC: No enlargement, pericardial thickening, or significant calcification. AORTA: No aneurysm or dissection. CHEST WALL: No mass or axillary adenopathy. BONES: No bone lesion or fracture. LIMITED ABDOMEN: 2.1 cm stone within gallbladder. Multiple renal hypodensities favoring cysts. Limited images of the upper abdomen. OTHER: Negative. CT/CT chest wo con IMPRESSION: 1. New complete clearing of previously seen original infiltrates on the 03/04/2023 study other than the right middle lobe opacity which continues to decrease in size; suspect near complete resolution of previously seen infiltrative process. 2. A few small stable nodules suspected represent granulomas. 3. New 6 mm opacity lateral left lung apex; nonspecific but appearing similar to the previously seen opacities and likely representing infectious infiltrates. 4. Consider follow-up CT chest in 6 months to document stability versus change. Electronically authenticated by: STEPHEN ROBLES Date: 06/18/2023 06:05
== END 2023-06-17 08:32 | disposition home or self-care (01) ==
LOC: CT 08:32
PROVIDERS: PCP Nurse Practitioner Family; Visit Provider Internal Medicine
DX: B38.2 Pulmonary coccidioidomycosis, unspecified (principal); R91.8 Other nonspecific abnormal finding of lung field
CPT/HCPCS: 71250

== ENCOUNTER 2023-07-16 08:52 | Outpatient (OUT) | payer MEDICARE, SELFPAY ==
--- OUTSIDE RECORDS SUMMARY | 2023-07-16 09:09 | XMS_ITS | CCD ---
Author Organization [facility] Care Team Providers Care Public Relations Coordinator Name Role Phone Audie Truong Unavailable DAYANA PEPPER Primary Care Physician MD AUDIE TRUONG Referring Unavailable Iván TOMLIN Attending Unavailable KELLY, Iván Hsu Referring Unavailable Iván TOMLIN Attending Unavailable KELLY, Iván Hsu Admitting Unavailable JOHN, DAYANA Attending Unavailable JOHN, DAYANA Admitting Unavailable JOHN, [...] AUDIE Consulting Unavailable DIONNE, AUDIE Attending Unavailable JONH, DAYANA Attending Unavailable UTE, DR MONTENEGRO Referring Unavailable JOHN, DAYANA Admitting Unavailable JOHN, DAYANA Primary Care Unavailable STEPHEN ROBLES Consulting Unavailable DAYANA LOPEZ Consulting Unavailable DIONNE, AUDIE Admitting Unavailable DIONNE, AUDIE Consulting Unavailable DIONNE, AUDIE Attending Unavailable JOHN, DAYANA Primary Care Unavailable Allergies Allergy Classification Reported Allergen(s) Allergy Type Date of Onset Reaction(s) Facility (1 source) No Known Medication Allergies; Translations: [No Known Medication Allergies] Propensity to adverse reactions (disorder) [facility] Repository Medications Current Medications Medication Drug Class(es) [...] a day Active fluticasone 0.05 mg/inh Nasal [place] (2 sources) Start: 01-01-2019 take 2 spray(s) nasal route once daily fluticasone 0.05 mg/inh Nasal [place] 2 spray(s), Nasal, Daily, each nostril Start [...] procedure, # 2 tab(s), Refills(s) 0, Pharmacy: [facility]/pharmacy #[id number], 162, cm, 07/02/22 14:24:00 EDT, [...] Range Facility Coding Summary.on 07-19-2022 Coding Summary. CD:[id number] Ww+PGhlYWQ+KI2IKHUqE 43bsMRjjL9bA2BXDOiVE ywgQVBQTElOSyIgbmFtZ Y6xzSEdMIQh IC8+DJ2iFEIlAlpjlTUm f8R1rRK8X76lhy2uPGka gFH3ZUAoTnWgmwcll5ni dDi0KExoBziaYjGo ONYioU07UMB8kD53Pe07 kRBfkZVqx7qhjCo5GyMt VKSkXTM8nIfuPSmcu0Cr MJJbO00qbZKld2Y2 IGNvbGxhcHNlOyBlbXB0 aA9yCNojjzmxa1vcjjal Cjt3nx48uUNaz6U9yUC3 M3OkkqN3XROxcBZw RtfgtGKEcI4ijdimc8eg hencDmJdAXXvSJo8ZBh2 OZBgxAreGsViLL73GSN3 KWAwaxDhA4TgBBNy jJzoErB4a3N0Ch2EJ0RO VoqrG4VGFCWQZVoxkHK+ LT06yj60W8EnXwpnSqc7 VUArMSR5dBC7xU2w QVZyWCjeh8Y8xEU1B4Se moGotf2iw9uxDSXuLFfk G95lxDMtj8E3MIFzvPN0 XPTnlGweBdPgjR43 Oyc+MXBvzOyir0PkHror d8hpa6yskTl6UcuqVKYv fcYdtYqlMLN7b4MvRu5w OIQdpUC2tNV9wK6o YvJlDpO8KJnsI843YxQg xFXqIkocP67dS1VbxOH+ XITzYoq2ZIRrfSskHQ9c X5OjFSXbwklrkJXw wTosBL3xOBVlmiayYCIb cJ3rQJYtB8u6YfFpAeP5 YIlzL0VtWWBgaaxyAs20 hV6pEnZaYrJ1RFhe D9FchhY4JPToeVCjWSlg UCY8S92kp4B3NUGoLMZm UDJ2nAS7sT9dcPtmvcgb bGVmdDsgdmVydGlj NMztZRwyL866XIJsmLic PkNvZGluZyBEYXRlOiAg MDMvMzAvMjAyMzwvdGQ+ KFQiAOZ4rJgfYYGq uADtYCwlYh6urZpkyCkb XL4bGQQujhlqRXQpdL8t ZDGyiFPrdVwfRS2jUEEk pahru785PmMuSGP1 VEIjuVZyH9TigK3aUuDk ZYInHLBtO8DmxPAzTRvg U075RLllAyK9USOkbnFq D7GlUPDlkXegRmO1 e4Z1Wv4Jt4GbewivP5Sx oXYwPsYwWvlpJKy3J5Tr PjwvdHI+ZF78MGDrCO29 NYh1QGW4vWrpBVsy YVCkV9WkuY6nOyTxKLGt ZGRkOyc+PHRhYmxlIHdp ZHRoPScxMDAlJyBzdHls EO1gIq6pTJCxRVLu cUpwrJWuUzSsg3iaHXJr PTvzWT8wzWawU8KlzLL8 WXHsu1k8Tl27Q13hQ5Gn dXA+RQQpwAO6bWD3 rU1gSgInXbY3WAkpM177 LeXttKOzJtjuw7rvr6et tGm8DnT2RXDbngSzsGrr VPM0s2VcXs35I80f IHdpZHRoPSIxNSUiIHZh xHiiya7njD4hFr9+PGNv vWX0lAA9mG9gPiMnRlO4 ZUanX793ZfTajXPu Rsmda7zmq6dngSs7TlHa HDPwtmDwzRqjCEO5v4Lx Im18A8MvlQddb3BlWal1 pa99iSQqk7N2cAZ7 R3GfFYYtjrwyhHYosDoj YF7kLWEjtnmiYTCllO5u VOCfP0j0JxPiKzA6LDxr Q7HjreZ6HRFaqEJh WUEimPKNkA9bclfug6tc feioTqDpMUNtHXb4CWh9 XOOkiOszScFyPUD0DxU6 JCM5rFJhaE6bjYvp plbrfH4gZcq+YJA7bAEp cHBSFC7fOdharUT+PHRk XWF3gSudCTccEMPqwT7g MESpQ6t8LtLqXjX3 NDxpQ0KcajU2JGSxgYCb OHEswDTGiD8qnshtf0jm yfvhOuIvYIYkPCi2HEq9 LWFsaWduOiBsZWZ0 BhD9VUG8xTIjaS3ivUko pytxoE6vNij+QmlydGgg ZCV3DBz4S9SdKhy2NGNr uFexCS2crTSoRXwo Ss8dsNlzeGtvZP6oWUKv iyztt242PjWxz8uvQWKk dIRlPSdmDTO3L90fo2D5 LHAuDMBxJZK4xTW2 tE1rxOskuogdoZZsdQid bsBtzIrjAIypOHwdH422 NXAndOioUoLkJIi2Y8Gk Van8SWAumCwbYF4z dVZsUNmdVa1tpKhdaWrq UI0dSLIogmqce359EsDi w9yfVWVqdMZrJAdvCPR4 W01nn1N2TRArELGo FNP5vNT5xK2jrQwuwlck bGVmdDsgdmVydGljYWwt RIayA973FHAriHhaGsJl aFo2V1SmRfn7WUNh iWejCN0rdVXwHLriTb7n mDjifMfjHQ3pMXLekfax o716PlGsl3ujPUMpwTOc QCbzYTN4N05pn1V4 YKXaYUEyAPD8uSF3wM3y bGlnbjogbGVmdDsgdmVy cTcwIUhvQSgmD651HJBd cDsnPlBhdGllbnQg QQtpQDs3Z6OlUvqqeXQ+ CI35IVSzLP18uPFloUOr r5jmaLy9RzVtVCOwKAM4 kBpbPZjcm6NwUHRp D44qyUPgm7P3RGRwjNio vEIkQwOicAA1mO4yHVto ifdno3jkgejbQplyw5gr cq14rQ09N33pPQro ZHRoPSIzMCUiIHZhbGln vf2peB2fGd8+PGNvbCB3 rTO6oE6gVPRlVvA3DApx I535EtQvtKNiYzgg k9ipm6nluOu0UcP3VNNl otMluHdeZNH8h8HcZp33 Z47eTQilJTFrEPIcGAZc TJLedXhszl3bvS0m Ii8+YOXndSW6kOC6jY2b AmAaOxR3ZZlbR808AnJm tXQrIgrqI44hW8KksIW+ CTJkKpr6TNSddShg CT0mcIFwASitUw9eQIL1 FtArLwXoYGpnO4OhBDSy kwwjxronjLS1ONTuWAKn yR90Nb6hpIxjFHKp hLQSjX8mslacz1mrxqeg FjDzBBLkRDc5AYw9CHRu qMstCzAbYMH6QrQ7MJJ3 aRTwjL1ocKnnlool eK3uP9DkCUPteeyaOl68 oZ4bTqGyRoR8IUnnBwq+ S0WXLeBMGJKYANEGC5AK TkUgQTwvdGQ+PHRk GSP4kLsdQPpxKWVuiA1b XDSvM9m2QbZcZiN5SXcy X7NgEPGrmnkvTy10vT0u DxQbBqN7SHdaC6Ly knU9IVQiuRGyVGaqLJD3 B91ia8O2UNZpLHKwVWE7 wHM3aK6ohCeayzrmkESf dDsgdmVydGljYWwt SCodS519TCHwqMygZhUa EgJlQnM4TGP7S8SlTfb6 DTLofQxuMU7bdDLfRNkx Xm6bpXadqDalWF4f TPFqnkhmUPSruL7vPVVl tVMkaJfuAW5zWERunmok p952DzBpLZU8CLBjlNIo D7JjhM2tArLtCKNf OTTuG4RsnZXbFNtqP999 DPtmThZ0FLSiugKgE8Yr VFNmxTttSuQ9f7S2Ys26 MCBZZWFyczwvdGQ+ JRDfQFL0bDhlISqiGTAq gZ0uBYNnP5c5TjUcGdB7 EErjY0YeNXHoskwkVh27 lD2zXcRtHeD5RIlu V4UzprF1SOAvbDBtGUbc SFE1Y84an1Z9PUFcPYAx CZU2pMU9qB4vaSeesagu bGVmdDsgdmVydGlj HXxfXEdgA696KCZeaMvk PkZlbWFsZTwvdGQ+PHRk UBS4bJrdXDwhBNFnwT7b FBMxW2h1ZaQuLdC2 GTheN3EoJTXxnzgnIc56 hN6lZnZrXhR2GApqN6Nm efB9DXHnpFKtSRtvDXJ1 D68qh5B9LSPdNKCe YNH6wUB1kK2ueWbjuxem bGVmdDsgdmVydGljYWwt IBjyR651JYKteDnuEs42 cVBnlEcwtvE3R4Gm PjwvdHI+XT27EYCkSC88 yXBuxQLey1faxGq0HsZk KTEzELD1cYhvFMtkd8Uk JZAdB58rkBMbz1Y2 IGNvbGxhcHNlOyBlbXB0 bA7wJNuhfngrv3quyjtr Jsudr4yhvk13wV84C38e IHdpZHRoPSIzMCUi YGLusHxdrd5heD5eNn4+ XEQenJX3sCS1pD6rFkRs OsT6XSylN678MeEtdLAd Uuvgw1via6mrrZe4 IjIwJSIgdmFsaWduPSJ0 l8UhUi17Q65vKUndDDSr YDUpOWJiZYNrmFeyoc2l bC2xHu4+NS8ka3kk sy24vS59sBR+PHRkIHN0 dGveYUmoRXJoxM3dPZqe WoK1LHFbKkOowA81bNTn MUynJp5oxEvzmCjr AG8rKYVgwwokx893RkAc f8coTKFtxQWzFWeuBFT9 Q87qd1B8LMZuNXMpOBG4 pFE2cI6anKfpczuy bGVmdDsgdmVydGljYWwt WGdeY927ZNRlbZltOjUr jTUcN5faaaIIEA9eQvtl dGQ+JNLwFRN6cCjd ITbwJPRwyC3rHMBxY6l2 BsTpYmC9UIocK6XnenF3 ENJooARdWRMteGGOcC6c offqi6mdlvmqVaKu RWUnDPp4HHl5SAViePfu EzEvVPI9KyL7AXS2dVAy kQ7voNuqwkqfzJ8mPii+ RklOOjwvdGQ+PHRk DDQ9yKllRSebUYUctX7y XZFhN9z4DhLoRtT9YStr W1KsjrM3NTRehHEuHOOo kHQWcJ1zlkctd3tm bnsrYuNdIYKeKZw3UDl3 GDVrrPrcMfOoYCP9ArP7 EVO0zPRfnR4diDqbpkpl kM1qKbq+TVJOOjwv dGQ+NEQwARE8wSxcIGkt SHMgeH4mZTDtQ8q4SmDm YuF0CCprZ2RllhC2OTIn uYMuODLpqLITbW7l gtnjx8lqajnmTzAuEWXs YLw6KPu4ZLXhnKewCeJc QCY4IaN2WPA7xAAvwG6r xJdafdpfcR7dZqz+ SLC9TJG4PU86XZ91U3Ss PjwvdGFibGU+PHRhYmxl IHdpZHRoPScxMDAlJyBz vQlyLT7mPm1lEDLn LWNvbGxh (more content not included)... Normal [facility] Consent for Procedure/Surger yon 07-17-2022 Consent for Procedure/Surgery [id number] 0#1.00CD:127 [facility] Consent for Treatmenton 03-2 Consent for Treatment [id number] #1.00CD:127 [facility] IntraOperative Documentson 0 07-17-2022 IntraOperative Documents [id number] 2#1.00CD:127 [facility] Main OR Intraoperative Recor don 07-17-2022 Main OR Intraoperative Record IntraOp Document Type FTURO Summary Primary Physician: Iván TOMLIN MD Finalized Date/Time: 07/17/22 09:10:19 Pt. Name: PEG HADLEY/Sex: 1950 Female Med Rec #: [id number] Physician: Iván TOMLIN MD Financial #: [id number] Pt. Type: O Room/Bed: / Admit/Disch: 07/17/22 08:15:03 - Institution: Case Times FTURO Entry 1 Patient Times In Room 07/17/22 09:02:00 Out Room 07/17/22 09:15:00 Procedure Times Start 07/17/22 09:05:00 Stop 07/17/22 09:10:00 Anesthesia Times Last Modified By: Kusum BELL, Stefani COLMENARES 07/17/22 09:08:13 Case Attendance FTURO Entry 1 Entry 2 Entry 3 Case Attendee Iván TOMLIN MD RN, CNOR, Lorraine BARNES, Palma Ko Role Performed Surgeon - Primary Mold Blower - Primary Scrub - Primary Time In 07/17/22 09:02:00 07/17/22 09:02:00 07/17/22 09:02:00 Time Out 07/17/22 09:15:00 07/17/22 09:15:00 07/17/22 09:15:00 Procedure CYSTOSCOPY LOCAL(.) CYSTOSCOPY LOCAL(.) CYSTOSCOPY LOCAL(.) Comments Last Modified By: Kusum RN, CNOR, KRISTIAN Noe RNOR, Kusum BELL, KRISTIANOR, Stefani 07/17/22 Stefani 07/17/22 Stefani 07/17/22 09:08:16 09:08:16 09:08:16 Surgical Procedures FTURO Entry 1 Procedure Description Procedure CYSTOSCOPY LOCAL Modifiers . Surgeon Description cysto Primary Procedure Yes Primary Surgeon Iván TOMLIN MD Start 07/17/22 09:05:00 Stop 07/17/22 09:10:00 Anesthesia Type Local Surgical Service Urology Wound Class 2 - Clean-Contaminated Last Modified By: DEDRA Noe RN, Stefani 07/17/22 09:08:19 General Case Data FTURO Pre-Care Text: Classifies surgical wound, implements aseptic technique, initiates traffic control Entry 1 Case Information OR URO 1 FT Case Level None Wound Class 2 - Clean-Contaminated Specialty Urology Preop Diagnosis HEMATURIA Postop Same As Preop No Postop Diagnosis clear bladder Outcomes Met? Yes Last Modified By: DEDRA Noe RN, Stefani 07/17/22 09:08:36 Post-Care Text: The patient [...] TOMLIN MD, Verified (If Participants Kusum BELL, KRISTIANOR, Applicable) Lorraine Ko FOLDING MACHINE TENDER, Palma Flynn Time Out Complete 07/17/22 09:03:00 [...] DEDRA Noe RN, Ruthann 07/17/22 09:10 Normal [facility] Main OR Preoperative Recordo n 07-17-2022 Main OR Preoperative Record Holding Area Document Type FTURO Summary Primary Physician: Iván TOMLIN MD Finalized Date/Time: 07/17/22 09:04:54 Pt. Name: PEG HADLEY/Sex: 1950 Female Med Rec #: [id number] Physician: Iván TOMLIN MD Financial #: [id number] Pt. Type: O Room/Bed: / Admit/Disch: 07/17/22 [...] No Pain Comment: na Skin Integrity Intact, [place], Warm, & Dry Vitals - EU Blood Pressure 135/82 Pulse 65 bpm Respirations 16 br/min SPO2 96 % RN Reviewed Yes Last Modified By: DEDRA Noe RN, Ruthann 07/17/22 09:04:49 General Comments: temp:36.4 Finalized By: DEDRA Noe RN, Ruthann Document Signatures Signed By: Maeve Florian LPN 07/17/22 08:41 DEDRA Noe RN, Ruthann 07/17/22 09:04 [facility] Operative Reporton Operative Report Patient: PEG HADLEY [...] follow-up on a as needed basis.. Normal [facility] Comment on above: Result Comment: Elec tronically Signed By: Iván TOMLIN MD\.br\Date and Time Signed: 07/17/22 09:13 EDT RAD - Ultrasound Reporton RAD - Ultrasound Report [id number] #1.00CD:127 Normal [facility] Urine Cytology ([facility])on 0 07-09-2022 Urine Cytology Diagnosis Info Invalid Interpretation Code [facility] Comment on above: Result Comment: A:Ur ine,Urine:Voided Interpretation - MicroScopic Description - Adequacy - Gross Description Site ID:A color Light Yellow fixative Alcohol Specimen designated Urine received in alcohol preservative and labeled with the patient?s name, consists of 40ml clear light yellow fluid. Electronically signed by : on: 07/09/2022 15:10:50 Performed By: #### 1 [id number] ####[facility] [address] [place] [address] US KIDNEYSon 07-07-2022 US KIDNEYS EXAM: US [...] by: DANIELLE CAM Date: 2022-07-07 10:33 Normal [facility] Formson 07-03-2022 Forms [id number] #1.00CD:127 Normal [facility] Physician Referralon 023 Physician Referral [id number] #1.00CD:127 Normal [facility] Pre-Certification Formon Pre-Certification Form [id number] 8#1.00CD:127 Normal [facility] Ambulatory Visit Summaryon 0 07-02-2022 Ambulatory Visit Summary PEG HADLEY :1950 Visit Date:07/02/2022 Ambulatory Visit Instructions Your Diagnosis Microscopic hematuria Tests Performed Urnls Dip Stick Auto w/o Microscopy POC 92281 US Renal -- Results Pending -- Please visit your patient portal for your results or contact your primary care physician. Your Care Team Attending Physician - KELLY BLACKMON, Iván Hsu Primary Care Physician - DAYANA PEPPER CNP Referring Physician - DIONNE BLACKMON, AUDIE This Is Your Medications List Contact prescribing physician if questions or concerns APAP/ASA/caffeine (Excedrin Migraine) aspirin (aspirin 81 mg oral tablet) dicyclomine (dicyclomine 20 mg Tab) fluticasone nasal (fluticasone 0.05 mg/inh Nasal [place]) hyoscyamine (hyoscyamine 0.125 mg oral Tab) levothyroxine [...] [facility] [address] , [place] [address]- Medications What How Much When Instructions Unchanged [...] fluticasone nasal (fluticasone 0.05 mg/ inh Nasal [place]) 2 Sprays Nasal Inhalation Every day each [...] Urnls Dip Stick Auto w/o Microscopy POC 43084 (07/02/2022) Bilirubin Urine Dipstick - Negative Blood Urine Dipstick - Trace-lysed Glucose Urine Dipstick - Negative Ketones Urine Dipstick - Negative Leukocytes Urine Dipstick - Negative Nitrite Urine Dipstick - Negative Protein Urine Dipstick - Negative Specific [place] Urine Dipstick - >=1.030 Urine Appearance Urine [...] include: ? (more content not included)... Normal [facility] Patient Educationon 07-03-19 Patient Education Urology Hematuria, [...] these instructions at home: Medicines ? Take etlh-xqm-qoqubji and prescription medicines only as told by [...] the blood stops without treatment. ? Take mqdo-oou-mqzkhai and prescription medicines only as told by your health care provider. ? Drink enough fluid to keep your urine clear or pale yellow. This information is not intended to replace advice given to you by your health care provider. Make sure you discuss any questions you have with your health care provider. Document Released: 04/08/2006 Document Revised: 09/02/2019 Document Reviewed: 05/11/2017 [employer] Patient Education ? 2019 [employer] [facility] Urine Cytology ([facility])on 0 07-02-2022 Method of Extraction Voided Normal [facility] Comment on above: Performed By: #### 1 [id number] ####[facility] [address] [place] [address] Number of Jars 1 Invalid Interpretation Code [facility] Comment on above: Performed By: #### 1 [id number] ####[facility] [address] [place] [address] Specimen Urine Normal [facility] Comment on above: Performed By: #### 1 [id number] ####[facility] [address] [place] [address] Type of Service Technical Only Normal [facility] Comment on above: Performed By: #### 1 [id number] ####[facility] [address] [place] [address] PTH INTACTon 05-22-2022 PTH, Intact 75 pg/mL Critically high 15-65 [facility] Comment on above: Performed By: #### P THINT #### [facility] [address] [place] [address] Dr. Andrea Mccarthy FERRITINon 05-21-2022 Ferritin [Mass/Vol] 124.0 ng/mL Normal 8.0-252.0 [facility] Comment on above: Performed By: #### U KIM, MG, PHOS #### [facility] [address] [place] [address] Dr. Andrea Mccarthy HEMOGRAM AND PLATELon 2022 Hematocrit (Bld) [Volume fraction] 40.1 % Normal 36.0-48.0 [facility] Comment on above: Performed By: #### U KIM, MG, PHOS #### [facility] [address] [place] [address] Dr. Andrea Mccarthy Hemoglobin (Bld) [Mass/Vol] 13.2 g/dL Normal 12.0-16.0 [facility] Comment on above: Performed By: #### U KIM, MG, PHOS #### [facility] [address] [place] [address] Dr. Andrea Mccarthy MCH (RBC) [Entitic mass] 28.0 pg Normal 26.7-34.0 [facility] Comment on above: Performed By: #### U KIM, MG, PHOS #### [facility] [address] [place] [address] Dr. Andrea Mccarthy MCHC (RBC) [Mass/Vol] 32.9 g/dL Normal 29.9-35.2 [facility] Comment on above: Performed By: #### U KIM, MG, PHOS #### [facility] [address] [place] [address] Dr. Andrea Mccarthy MCV (RBC) [Entitic vol] 85.1 fL Normal 81.0-99.0 [facility] Comment on above: Performed By: #### U KIM, MG, PHOS #### [facility] [address] [place] [address] Dr. Andrea Mccarthy PLT 255 103/ul Normal 150-450 [facility] Comment on above: Performed By: #### U KIM, MG, PHOS #### [facility] [address] [place] [address] Dr. Andrea Mccarthy RBC 4.71 106/ul Normal 4.20-5.40 [facility] Comment on above: Performed By: #### U KIM, MG, PHOS #### [facility] [address] [place] [address] Dr. Andrea Mccarthy WBC 5.9 103/ul Normal 4.0-11.0 [facility] Comment on above: Performed By: #### U KIM, MG, PHOS #### [facility] [address] [place] [address] Dr. Andrea Mccarthy IRON AND TIBCon 05-21-2022 % SATURATION 18.5 % Normal [facility] Comment on above: Performed By: #### U KIM, MG, PHOS #### [facility] [address] [place] [address] Dr. Andrea Mccarthy Iron [Mass/Vol] 51.0 ug/dL Normal 50.0-170.0 [facility] Comment on above: Performed By: #### U KIM, MG, PHOS #### [facility] [address] [address] [address] Andrea Mccarthy TIBC DIRECT 276.0 ug/dL Normal 250.0-450.0 [facility] Comment on above: Performed By: #### U KIM, MG, PHOS #### [facility] [address] [place] [address] Dr. Andrea Mccarthy MAGNESIUMon 05-21-2022 Magnesium [Mass/Vol] 1.8 mg/dL Normal 1.8-2.4 [facility] Comment on above: Performed By: #### U KIM, MG, PHOS #### [facility] [address] [address] [address] Andrea Mccarthy RENAL FUNCTION PANELon 05-21 Albumin [Mass/Vol] 3.5 g/dL Normal 3.4-5.0 [facility] Comment on above: Performed By: #### U KIM, MG, PHOS #### [facility] [address] [address] [address] Andrea Mccarthy Calcium [Mass/Vol] 8.5 mg/dL Normal 8.5-10.1 [facility] Comment on above: Performed By: #### U KIM, MG, PHOS #### [facility] [address] [place] [address] Dr. Andrea Mccarthy Chloride [Moles/Vol] 104 mmol/L Normal 98-107 [facility] Comment on above: Performed By: #### U KIM, MG, PHOS #### [facility] [address] [place] [address] Dr. Andrea Mccarthy CO2 [Moles/Vol] 29.6 mmol/L Normal 21.0-32.0 [facility] Comment on above: Performed By: #### U KIM, MG, PHOS #### [facility] [address] [place] [address] Dr. Andrea Mccarthy Creatinine [Mass/Vol] 1.23 mg/dL Critically high 0.55-1.02 [facility] Comment on above: Performed By: #### U KIM, MG, PHOS #### [facility] [address] [address] [address] Andrea Mccarthy EGFR-AF ECUADOREAN 52 mL/min/1.73m2 Critically low >=60 [facility] Comment on above: Performed By: #### U KIM, MG, PHOS #### [facility] [address] [address] [address] Andrea Mccarthy EGFR-NON AF ECUADOREAN 43 mL/min/1.73m2 Critically low >=60 [facility] Comment on above: Performed By: #### U KIM, MG, PHOS #### [facility] [address] [address] [address] Andrea Mccarthy Glucose [Mass/Vol] 92 mg/dL Normal 74-106 [facility] Comment on above: Performed By: #### U KIM, MG, PHOS #### [facility] [address] [place] [address] Dr. Andrea Mccarthy Phosphate [Mass/Vol] 3.3 mg/dL Normal 2.6-4.7 [facility] Comment on above: Performed By: #### U KIM, MG, PHOS #### [facility] [address] [address] [address] Andrea Mccarthy Potassium [Moles/Vol] 3.9 mmol/L Normal 3.5-5.1 [facility] Comment on above: Performed By: #### U KIM, MG, PHOS #### [facility] [address] [address] [address] Andrea Mccarthy Sodium [Moles/Vol] 141 mmol/L Normal 136-145 [facility] Comment on above: Performed By: #### U KIM, MG, PHOS #### [facility] [address] [address] [address] Andrea Mccarthy Urea nitrogen [Mass/Vol] 25.0 mg/dL Critically high 7.0-18.0 [facility] Comment on above: Performed By: #### U KIM, MG, PHOS #### [facility] [address] [address] [address] Andrea Mccarthy UA RANDOM W/MICROSCOPICon BACTERIA NONE SEEN Normal NONE SEEN [facility] Comment on above: Performed By: #### U AMIC #### [facility] [address] [address] [address] Andrea Mccarthy Bilirubin Ql (U) Negative Normal NEGATIVE [facility] Comment on above: Performed By: #### U AMIC #### [facility] [address] [address] [address] Andrea Mccarthy CAST NONE SEEN Normal NONE SEEN [facility] Comment on above: Performed By: #### U AMIC #### [facility] [address] [address] [address] Andrea Mccarthy Clarity (U) CLEAR Normal CLEAR [facility] Comment on above: Performed By: #### U AMIC #### [facility] [address] [place] [address] Dr. Andrea Mccarthy Color (U) YELLOW Normal YELLOW The [facility] Comment on above: Performed By: #### U AMIC #### [facility] [address] [address] [address] Andrea Mccarthy Crystals LM Nom (Urine sed) NONE SEEN Normal NONE SEEN [facility] Comment on above: Performed By: #### U AMIC #### [facility] [address] [address] [address] Andrea Mccarthy Epithelial cells LM Ql (Urine sed) FEW Abnormal NONE SEEN /RARE [facility] Comment on above: Performed By: #### U AMIC #### [facility] [address] [address] [address] Andrea Mccarthy Glucose Ql (U) Negative Normal NEGATIVE [facility] Comment on above: Performed By: #### U AMIC #### [facility] [address] [address] [address] Andrea Mccarthy Hemoglobin Ql (U) TRACE-INTACT Abnormal NEGATIVE [facility] Comment on above: Performed By: #### U AMIC #### [facility] [address] [place] [address] Dr. Andrea Mccarthy Ketones Ql (U) Negative Normal NEGATIVE [facility] Comment on above: Performed By: #### U AMIC #### [facility] [facility] [address] [address] [address] Andrea Mccarthy LEUKOCYTES Negative Normal NEGATIVE [facility] Comment on above: Performed By: #### U AMIC #### [facility] [address] [address] [address] Andrea Mccarthy MUCOUS TRACE Abnormal NONE SEEN [facility] Comment on above: Performed By: #### U AMIC #### [facility] [address] [address] [address] Andrea Mccarthy Nitrite Ql (U) Negative Normal NEGATIVE [facility] Comment on above: Performed By: #### U AMIC #### [facility] [address] [place] [address] Dr. Andrea Mccarthy pH (U) 5.0 [pH] Normal 5-9 [facility] Comment on above: Performed By: #### U AMIC #### [facility] [address] [address] [address] Andrea Mccarthy RBC 0-2 Normal 0-2 [facility] Comment on above: Performed By: #### U AMIC #### [facility] [address] [address] [address] Andrea Mccarthy SPEC GRAVITY 1.025 Normal 1.005-<=1.025 [facility] Comment on above: Performed By: #### U AMIC #### [facility] [address] [address] [address] Andrea Mccarthy UA PROTEIN Negative Normal NEGATIVE/ TRACE The [facility] Comment on above: Performed By: #### U AMIC #### [facility] [address] [place] [address] Dr. Andrea Mccarthy Urobilinogen Qn (U) 0.2 {Mikel'U}/dL Normal 0.2 - 1. 0 [facility] Comment on above: Performed By: #### U AMIC #### [facility] [address] [place] [address] Dr. Andrea Mccarthy WBC NONE SEEN Normal NONE SEEN The [facility] Comment on above: Performed By: #### U AMIC #### [facility] [address] [address] [address] Andrea Mccarthy URINE T PROTEIN CREAT RATIOo n 05-21-2022 Protein (U) [Mass/Vol] 21.5 mg/dL Critically high <=12.0 [facility] Comment on above: Performed By: #### U KIM, MG, PHOS #### [facility] [address] [address] [address] Andrea Mccarthy UR PROT CREAT RAT 0.15 Normal [facility] Comment on above: Performed By: #### U KIM, MG, PHOS #### [facility] [address] [place] [address] Dr. Andrea Mccarthy URINE CREAT 144.81 mg/dL Normal 20.00-300.00 [facility] Comment on above: Performed By: #### U KIM, MG, PHOS #### [facility] [address] [place] [address] Dr. Andrea Mccarthy VIT B12 AND FOLATEon 023 Cobalamin (Vitamin B12) [Mass/Vol] 1425.0 pg/mL Critically high 193.0-986.0 [facility] Comment on above: Performed By: #### U KIM, MG, PHOS #### [facility] [address] [place] [address] Dr. Andrea Mccarthy FOLATE 22.60 ng/mL Normal 8.60-58.90 [facility] Comment on above: Performed By: #### U KIM, MG, PHOS #### [facility] [address] [place] [address] SINUSES WO CONon [...] STEPHEN ROBLES Date: 2022-01-01 07:30 Normal [facility] INSULINon 11-15-2021 Insulin 9.0 uIU/mL Normal 2.6-24.9 [facility] Comment on above: Performed By: #### I NSULIN #### [facility] [address] [address] [address] Andrea Mccarthy PTH INTACTon 11-15-2021 PTH, Intact 43 pg/mL Normal 15-65 [facility] Comment on above: Performed By: #### U KIM, MG, PHOS #### [facility] [address] [address] [address] Andrea Mccarthy VIT D 25-OH [facility] 2021 Vitamin D, 25-Hydroxy 85.4 ng/mL Normal 30.0-100.0 [facility] Comment on above: Result Comment: Samina min D deficiency has been defined by the [place] [employer] and an Endocrine Society practice guideline as a level of serum 25-OH vitamin D less than 20 ng/mL (1,2). The Endocrine Society went on to further define vitamin D insufficiency as a level between 21 and 29 ng/mL (2). 1. IOM ([place] [employer]). 2010. Dietary reference intakes for calcium and D. [place]: The National Academies Press. 2. Dagoberto MF, Rachel NC, Edilson MARTINEZ, et al. Evaluation, treatment, and prevention of vitamin D deficiency: an Endocrine Society clinical practice guideline. JCEM. 2010; 96(7):1911-30. Performed By: #### V ITADLC #### [facility] [address] [place] [address] Dr. Andrea Mccarthy CBC AUTO DIFFon 11-14-2021 BASO # 0.0 103/ul Normal 0.0-0.1 [facility] Comment on above: Performed By: #### U KIM, MG, PHOS #### [facility] [address] [place] [address] Dr. Andrea Mccarthy Basophils/100 WBC (Bld) 0.6 % Normal 0.2-2.0 [facility] Comment on above: Performed By: #### U KIM, MG, PHOS #### [facility] [address] [place] [address] Dr. Andrea Mccarthy EO # 0.2 103/ul Normal 0.0-0.7 [facility] Comment on above: Performed By: #### U KIM, MG, PHOS #### [facility] [address] [place] [address] Dr. Andrea Mccarthy Eosinophils/100 WBC (Bld) 2.4 % Normal 0.9-7.0 [facility] Comment on above: Performed By: #### U KIM, MG, PHOS #### [facility] [address] [place] [address] Dr. Andrea Mccarthy Erythrocyte distribution width (RBC) [Ratio] 14.0 % Normal 11.0-15.0 [facility] Comment on above: Performed By: #### U KIM, MG, PHOS #### [facility] [address] [place] [address] Dr. Andrea Mccarthy Hematocrit (Bld) [Volume fraction] 35.7 % Critically low 36.0-48.0 [facility] Comment on above: Performed By: #### U KIM, MG, PHOS #### [facility] [address] [place] [address] Dr. Andrea Mccarthy Hemoglobin (Bld) [Mass/Vol] 11.2 g/dL Critically low 12.0-16.0 [facility] Comment on above: Performed By: #### U KIM, MG, PHOS #### [facility] [address] [place] [address] Dr. Andrea Mccarthy IG # 0.02 10e3/ul Normal 0.00-0.03 [facility] Comment on above: Performed By: #### U KIM, MG, PHOS #### [facility] [address] [place] [address] Dr. Andrea Mccarthy IG % 0.3 % Normal 0.0-0.5 [facility] Comment on above: Performed By: #### U KIM, MG, PHOS #### [facility] [address] [place] [address] Dr. Andrea Mccarthy LYMPH # 1.8 103/ul Normal 1.2-3.8 [facility] Comment on above: Performed By: #### U KIM, MG, PHOS #### [facility] [address] [place] [address] Dr. Andrea Mccarthy Lymphocytes/100 WBC (Bld) 24.9 % Normal 20.5-60.0 [facility] Comment on above: Performed By: #### U KIM, MG, PHOS #### [facility] [address] [place] [address] Dr. Andrea Mccarthy MANUAL DIFF REQ NO Normal [facility] Comment on above: Performed By: #### U KIM, MG, PHOS #### [facility] [address] [place] [address] Dr. Andrea Mccarthy MCH (RBC) [Entitic mass] 27.3 pg Normal 26.7-34.0 [facility] Comment on above: Performed By: #### U KIM, MG, PHOS #### [facility] [address] [place] [address] Dr. Andrea Mccarthy MCHC (RBC) [Mass/Vol] 31.4 g/dL Normal 29.9-35.2 [facility] Comment on above: Performed By: #### U KIM, MG, PHOS #### [facility] [address] [place] [address] Dr. Andrea Mccarthy MCV (RBC) [Entitic vol] 87.1 fL Normal 81.0-99.0 [facility] Comment on above: Performed By: #### U KIM, MG, PHOS #### [facility] [address] [place] [address] Dr. Andrea Mccarthy MONO # 0.5 103/ul Normal 0.3-0.8 [facility] Comment on above: Performed By: #### U KIM, MG, PHOS #### [facility] [address] [place] [address] Dr. Andrea Mccarthy Monocytes/100 WBC (Bld) 7.0 % Normal 1.7-12.0 [facility] Comment on above: Performed By: #### U KIM, MG, PHOS #### [facility] [address] [place] [address] Dr. Andrea Mccarthy NEUT # 4.7 103/ul Normal 1.4-6.5 [facility] Comment on above: Performed By: #### U KIM, MG, PHOS #### [facility] [address] [place] [address] Dr. Andrea Mccarthy Neutrophils/100 WBC (Bld) 64.8 % Normal 43.0-75.0 [facility] Comment on above: Performed By: #### U KIM, MG, PHOS #### [facility] [address] [place] [address] Dr. Andrea Mccarthy Platelet mean volume (Bld) [Entitic vol] 10.1 fL Normal 9.5-13.5 [facility] Comment on above: Performed By: #### U KIM, MG, PHOS #### [facility] [address] [place] [address] Dr. Andrea Mccarthy PLT 309 103/ul Normal 150-450 [facility] Comment on above: Performed By: #### U KIM, MG, PHOS #### [facility] [address] [place] [address] Dr. Andrea Mccarthy RBC 4.10 106/ul Critically low 4.20-5.40 [facility] Comment on above: Performed By: #### U KIM, MG, PHOS #### [facility] [address] [address] [address] Andrea Mccarthy WBC 7.2 103/ul Normal 4.0-11.0 [facility] Comment on above: Performed By: #### U KIM, MG, PHOS #### [facility] [address] [address] [address] Andrea Mccarthy FREE THYROXINE INDEX T7on FTI 4.14 Normal 1.30-4.50 [facility] Comment on above: Performed By: #### U KIM, MG, PHOS #### [facility] [address] [place] [address] Dr. Andrea Mccarthy T3U 36.0 % Normal 30.0-39.0 [facility] Comment on above: Performed By: #### U KIM, MG, PHOS #### [facility] [address] [place] [address] Dr. Andrea Mccarthy T4 [Mass/Vol] 11.50 ug/dL Normal 4.80-13.90 [facility] Comment on above: Performed By: #### U KIM, MG, PHOS #### [facility] [address] [place] [address] Dr. Andrea Mccarthy GLYCOHEMOGLOBIN A1Con 2021 ADA RECOMMENDATION SEE BELOW Normal [facility] Comment on above: Result Comment: ADA RECOMMENDED LIMIT 4.0 - 6.0 ADA THERAPEUTIC TARGET < 7.0 ACTION SUGGESTED > 7.0 Performed By: #### A 1C #### [facility] [address] [place] [address] Dr. Andrea Mccarthy Glucose [Mass/Vol] 137 mg/dL Normal [facility] Comment on above: Performed By: #### A 1C #### [facility] [address] [place] [address] Dr. Andrea Mccarthy HbA1c (Bld) [Mass fraction] 6.4 % Critically high 4.5-6.2 [facility] Comment on above: Performed By: #### A 1C #### [facility] [address] [place] [address] Dr. Andrea Mccarthy IRONon 11-14-2021 Iron [Mass/Vol] 34.0 ug/dL Critically low 50.0-170.0 [facility] Comment on above: Performed By: #### U KIM, MG, PHOS #### [facility] [address] [place] [address] Dr. Andrea Mccarthy LIPID PROFILEon 11-14-2021 CHOL-HDL RATIO NORM SEE BELOW Normal [facility] Comment on above: Result Comment: 3.3 - 4.4 LOW RISK 4.4 - 7.1 AVERAGE RISK 7.1 - 11.0 MODERATE RISK >11.0 HIGH RISK Performed By: #### L IPID, TSH, T7, CMP #### [facility] [address] [place] [address] Dr. Andrea Mccarthy Cholesterol [Mass/Vol] 152 mg/dL Normal <=200 [facility] Comment on above: Performed By: #### L IPID, TSH, T7, CMP #### [facility] [address] [address] [address] Andrea Mccarthy Cholesterol in HDL [Mass/Vol] 51 mg/dL Normal 40-60 [facility] Comment on above: Performed By: #### L IPID, TSH, T7, CMP #### [facility] [address] [place] [address] Dr. Andrea Mccarthy Cholesterol in LDL [Mass/Vol] 83.4 mg/dL Normal [facility] Comment on above: Performed By: #### L IPID, TSH, T7, CMP #### [facility] [address] [address] [address] Andrea Mccarthy Cholesterol.total/Ch olesterol in HDL [Mass ratio] 3.0 {ratio} Normal [facility] Comment on above: Performed By: #### L IPID, TSH, T7, CMP #### [facility] [address] [place] [address] Dr. Andrea Mccarthy HDL NORMAL > or = 60 mg/dl - LOW CARDIOVASCULAR RISK <40 mg/dl - HIGH CARDIOVASCULAR RISK Normal [facility] Comment on above: Performed By: #### L IPID, TSH, T7, CMP #### [facility] [address] [address] [address] Andrea Mccarthy LDL CALC NORMAL SEE BELOW Normal [facility] Comment on above: Result Comment: <100 mg/dl OPTIMAL 100 - 129 mg/dl NEAR OR ABOVE OPTIMAL 130 - 159 mg/dl BORDERLINE HIGH 160 - 189 mg/dl HIGH >190 mg/dl VERY HIGH Performed By: #### L IPID, TSH, T7, CMP #### [facility] [address] [address] [address] Andrea Mccarthy Triglyceride [Mass/Vol] 88 mg/dL Normal <=150 [facility] Comment on above: Performed By: #### L IPID, TSH, T7, CMP #### [facility] [address] [address] [address] Andrea Mccarthy VLDL CALC 17.6 mg/dL Normal [facility] Comment on above: Performed By: #### L IPID, TSH, T7, CMP #### [facility] [address] [place] [address] Dr. Andrea Mccarthy MAGNESIUMon 11-14-2021 Magnesium [Mass/Vol] 2.2 mg/dL Normal 1.8-2.4 [facility] Comment on above: Performed By: #### U KIM, MG, PHOS #### [facility] [address] [place] [address] Dr. Andrea Mccarthy PHOSPHORUSon 11-14-2021 Phosphate [Mass/Vol] 3.0 mg/dL Normal 2.6-4.7 [facility] Comment on above: Performed By: #### U KIM, MG, PHOS #### [facility] [address] [place] [address] Dr. Andrea Mccarthy PROF 14(COMP METB)on 022 Albumin [Mass/Vol] 3.2 g/dL Critically low 3.4-5.0 [facility] Comment on above: Performed By: #### L IPID, TSH, T7, CMP #### [facility] [address] [place] [address] Dr. Andrea Mccarthy Albumin/Globulin [Mass ratio] 0.8 {ratio} Normal [facility] Comment on above: Performed By: #### L IPID, TSH, T7, CMP #### [facility] [address] [address] [address] Andrea Mccarthy ALP [Catalytic activity/Vol] 51 U/L Normal 46-116 [facility] Comment on above: Performed By: #### L IPID, TSH, T7, CMP #### [facility] [address] [place] [address] Dr. Andrea Mccarthy ALT [Catalytic activity/Vol] 13 U/L Critically low 14-59 [facility] Comment on above: Performed By: #### L IPID, TSH, T7, CMP #### [facility] [address] [place] [address] Dr. Andrea Mccarthy Anion gap [Moles/Vol] 11.4 mmol/L Normal [facility] Comment on above: Performed By: #### L IPID, TSH, T7, CMP #### [facility] [address] [place] [address] Dr. Andrea Mccarthy AST [Catalytic activity/Vol] 9 U/L Critically low 15-37 [facility] Comment on above: Performed By: #### L IPID, TSH, T7, CMP #### [facility] [address] [place] [address] Dr. Andrea Mccarthy Bilirubin [Mass/Vol] 0.3 mg/dL Normal 0.2-1.0 [facility] Comment on above: Performed By: #### L IPID, TSH, T7, CMP #### [facility] [address] [place] [address] Dr. Andrea Mccarthy Calcium [Mass/Vol] 8.4 mg/dL Critically low 8.5-10.1 [facility] Comment on above: Performed By: #### L IPID, TSH, T7, CMP #### [facility] [address] [place] [address] Dr. Andrea Mccarthy Chloride [Moles/Vol] 105 mmol/L Normal 98-107 [facility] Comment on above: Performed By: #### L IPID, TSH, T7, CMP #### [facility] [address] [place] [address] Dr. Andrea Mccarthy CO2 [Moles/Vol] 27.7 mmol/L Normal 21.0-32.0 [facility] Comment on above: Performed By: #### L IPID, TSH, T7, CMP #### [facility] [address] [address] [address] Andrea Mccarthy Creatinine [Mass/Vol] 1.31 mg/dL Critically high 0.55-1.02 [facility] Comment on above: Performed By: #### L IPID, TSH, T7, CMP #### [facility] [address] [place] [address] Dr. Andrea Mccarthy EGFR-AF ECUADOREAN 49 mL/min/1.73m2 Critically low >=60 [facility] Comment on above: Performed By: #### L IPID, TSH, T7, CMP #### [facility] [address] [place] [address] Dr. Andrea Mccarthy EGFR-NON AF ECUADOREAN 40 mL/min/1.73m2 Critically low >=60 [facility] Comment on above: Performed By: #### L IPID, TSH, T7, CMP #### [facility] [address] [place] [address] Dr. Andrea Mccarthy Globulin (S) [Mass/Vol] 3.9 g/dL Normal [facility] Comment on above: Performed By: #### L IPID, TSH, T7, CMP #### [facility] [address] [place] [address] Dr. Andrea Mccarthy Glucose [Mass/Vol] 97 mg/dL Normal 74-106 [facility] Comment on above: Performed By: #### L IPID, TSH, T7, CMP #### [facility] [address] [place] [address] Dr. Andrea Mccarthy Potassium [Moles/Vol] 4.1 mmol/L Normal 3.5-5.1 [facility] Comment on above: Performed By: #### L IPID, TSH, T7, CMP #### [facility] [address] [place] [address] Dr. Andrea Mccarthy Protein [Mass/Vol] 7.1 g/dL Normal 6.4-8.2 [facility] Comment on above: Performed By: #### L IPID, TSH, T7, CMP #### [facility] [address] [address] [address] Andrea Mccarthy Sodium [Moles/Vol] 140 mmol/L Normal 136-145 [facility] Comment on above: Performed By: #### L IPID, TSH, T7, CMP #### [facility] [address] [address] [address] Andrea Mccarthy Urea nitrogen [Mass/Vol] 23.0 mg/dL Critically high 7.0-18.0 [facility] Comment on above: Performed By: #### L IPID, TSH, T7, CMP #### [facility] [address] [place] [address] Dr. Andrea Mccarthy Urea nitrogen/Creatinine [Mass ratio] 17.6 mg/mg Normal [facility] Comment on above: Performed By: #### L IPID, TSH, T7, CMP #### [facility] [address] [place] [address] Dr. Andrea Mccarthy TSHon 11-14-2021 TSH 0.032 uIU/mL Critically low 0.358-3.740 [facility] Comment on above: Performed By: #### U KIM, MG, PHOS #### [facility] [address] [place] [address] Dr. Andrea Mccarthy UA RANDOM W/MICROSCOPICon BACTERIA NONE SEEN Normal NONE SEEN [facility] Comment on above: Performed By: #### U KIM, MG, PHOS #### [facility] [address] [place] [address] Dr. Andrea Mccarthy Bilirubin Ql (U) Negative Normal NEGATIVE [facility] Comment on above: Performed By: #### U KIM, MG, PHOS #### [facility] [address] [place] [address] Dr. Andrea Mccarthy CAST NONE SEEN Normal NONE SEEN [facility] Comment on above: Performed By: #### U KIM, MG, PHOS #### [facility] [address] [place] [address] Dr. Andrea Mccarthy Clarity (U) CLEAR Normal CLEAR [facility] Comment on above: Performed By: #### U KIM, MG, PHOS #### [facility] [address] [place] [address] Dr. Andrea Mccarthy Color (U) YELLOW Normal YELLOW [facility] Comment on above: Performed By: #### U KIM, MG, PHOS #### [facility] [address] [place] [address] Dr. Andrea Mccarthy Crystals LM Nom (Urine sed) NONE SEEN Normal NONE SEEN [facility] Comment on above: Performed By: #### U KIM, MG, PHOS #### [facility] [address] [place] [address] Dr. Andrea Mccarthy Epithelial cells LM Ql (Urine sed) FEW Abnormal NONE SEEN /RARE [facility] Comment on above: Performed By: #### U KIM, MG, PHOS #### [facility] [facility] [address] [place] [address] Dr. Andrea Mccarthy Glucose Ql (U) Negative Normal NEGATIVE [facility] Comment on above: Performed By: #### U KIM, MG, PHOS #### [facility] [address] [place] [address] Dr. Andrea Mccarthy Hemoglobin Ql (U) TRACE-INTACT Abnormal NEGATIVE [facility] Comment on above: Performed By: #### U KIM, MG, PHOS #### [facility] [address] [place] [address] Dr. Andrea Mccarthy Ketones Ql (U) Negative Normal NEGATIVE [facility] Comment on above: Performed By: #### U KIM, MG, PHOS #### [facility] [address] [place] [address] Dr. Andrea Mccarthy LEUKOCYTES Negative Normal NEGATIVE [facility] Comment on above: Performed By: #### U KIM, MG, PHOS #### [facility] [address] [place] [address] Dr. Andrea Mccarthy MUCOUS SMALL Abnormal NONE SEEN [facility] Comment on above: Performed By: #### U KIM, MG, PHOS #### [facility] [address] [address] [address] Andrea Mccarthy Nitrite Ql (U) Negative Normal NEGATIVE [facility] Comment on above: Performed By: #### U KIM, MG, PHOS #### [facility] [address] [address] [address] Andrea Mccarthy pH (U) 5.5 [pH] Normal 5-9 [facility] Comment on above: Performed By: #### U KIM, MG, PHOS #### [facility] [address] [address] [address] Andrea Mccarthy RBC 0-2 Normal 0-2 [facility] Comment on above: Performed By: #### U KIM, MG, PHOS #### [facility] [address] [place] [address] Dr. Andrea Mccarthy SPEC GRAVITY 1.020 Normal 1.005-<=1.025 [facility] Comment on above: Performed By: #### U KIM, MG, PHOS #### [facility] [address] [address] [address] Andrea Mccarthy UA PROTEIN Negative Normal NEGATIVE/ TRACE [facility] Comment on above: Performed By: #### U KIM, MG, PHOS #### [facility] [address] [place] [address] Dr. Andrea Mccarthy Urobilinogen Qn (U) 0.2 {Mikel'U}/dL Normal 0.2 - 1. 0 [facility] Comment on above: Performed By: #### U KIM, MG, PHOS #### [facility] [address] [place] [address] Dr. Andrea Mccarthy WBC NONE SEEN Normal NONE SEEN [facility] Comment on above: Performed By: #### U KIM, MG, PHOS #### [facility] [address] [place] [address] Dr. Andrea Mccarthy URIC ACID SERUMon 11-14-2021 Urate [Mass/Vol] 5.0 mg/dL Normal 2.6-6.0 [facility] Comment on above: Performed By: #### U KIM, MG, PHOS #### [facility] [address] [address] [address] Andrea Mccarthy URINE T PROTEIN CREAT RATIOo n 11-14-2021 Protein (U) [Mass/Vol] 22.3 mg/dL Critically high <=12.0 [facility] Comment on above: Performed By: #### U KIM, MG, PHOS #### [facility] [address] [address] [address] Andrea Mccarthy UR PROT CREAT RAT 0.15 Normal [facility] Comment on above: Performed By: #### U KIM, MG, PHOS #### [facility] [address] [address] [address] Andrea Mccarthy URINE CREAT 151.50 mg/dL Normal 20.00-300.00 [facility] Comment on above: Performed By: #### U KIM, MG, PHOS #### [facility] [address] [place] [address] Dr. Andrea Mccarthy Vital Signs Date Time Vital Sign Value Performing Clinician Facility 05-21-2023 10:40-0500 Body height 162.56 cm Audie Dionne Other [facility] 05-21-2023 10:40-0500 Body mass index (BMI) [Ratio] 29.59 kg/m2 Audie Dionne Other [facility] 05-21-2023 10:40-0500 Body temperature 96.3 [degF] Audie Dionne Other [facility] Other 05-21-2023 10:40-0500 Body weight 78.2 kg Audie Dionne Other [facility] Other 05-21-2023 10:40-0500 Diastolic blood pressure 80 mm[Hg] Audie Dionne Other [facility] Other 05-21-2023 10:40-0500 Respiratory rate 18 /min Audie Dionne Other [facility] Other 05-21-2023 10:40-0500 SaO2% (BldA) [Mass fraction] 98 % Audie Dionne Other [facility] 05-21-2023 10:40-0500 Systolic blood pressure 118 mm[Hg] Audie Dionne Other [facility] 11-19-2022 11:00-0400 Body height 162.56 cm Audie Dionne Other [facility] 11-19-2022 11:00-0400 Body mass index (BMI) [Ratio] 28.9 kg/m2 Audie Dionne Other [facility] 11-19-2022 11:00-0400 Body temperature 96 [degF] Audie Dionne Other [facility] 11-19-2022 11:00-0400 Body weight 76.39 kg Audie Dionne Other [facility] Other 11-19-2022 11:00-0400 Diastolic blood pressure 81 mm[Hg] Audie Dionne Other [facility] 11-19-2022 11:00-0400 Respiratory rate 18 /min Audie Dionne Other [facility] 11-19-2022 11:00-0400 SaO2% (BldA) [Mass fraction] 98 % Audie Dionne Other [facility] 11-19-2022 11:00-0400 Systolic blood pressure 132 mm[Hg] Audie Dionne Other [facility] 07-02-2022 14:17-0400 Blood Pressure Location Iván TOMLIN [facility] 07-02-2022 14:17-0400 Diastolic blood pressure 88 mm[Hg] Iván TOMLIN [facility] 07-02-2022 14:17-0400 Heart rate 71 /min Iván TOMLIN [facility] 07-02-2022 14:17-0400 Systolic blood pressure 128 mm[Hg] Iván TOMLIN [facility] 05-29-2022 10:40-0500 Body height 162.56 cm Audie Dionne Other [facility] 05-29-2022 10:40-0500 Body mass index (BMI) [Ratio] 28.22 kg/m2 Audie Dionne Other [facility] 05-29-2022 10:40-0500 Body temperature 96.3 [degF] Audie Dionne Other [facility] 05-29-2022 10:40-0500 Body weight 74.57 kg Audie Dionne Other [facility] Other 05-29-2022 10:40-0500 Diastolic blood pressure 81 mm[Hg] Audie Dionne Other [facility] 05-29-2022 10:40-0500 Respiratory rate 18 /min Audie Dionne Other [facility] 05-29-2022 10:40-0500 SaO2% (BldA) [Mass fraction] 98 % Audie Dionne Other [facility] 05-29-2022 10:40-0500 Systolic blood pressure 125 mm[Hg] Audie Dionne Other [facility] 11-21-2021 12:40-0400 Body height 162.56 cm Audie Dionne Other [facility] 11-21-2021 12:40-0400 Body mass index (BMI) [Ratio] 28.22 kg/m2 Audie Dionne Other [facility] 11-21-2021 12:40-0400 Body temperature 96.8 [degF] Audie Dionne Other [facility] 11-21-2021 12:40-0400 Body weight 74.57 kg Audie Dionne Other [facility] 11-21-2021 12:40-0400 Diastolic blood pressure 79 mm[Hg] Audie Dionne Other [facility] 11-21-2021 12:40-0400 Respiratory rate 18 /min Audie Dionne Other [facility] Other 11-21-2021 12:40-0400 SaO2% (BldA) [Mass fraction] 98 % Audie Dionne Other [facility] 11-21-2021 12:40-0400 Systolic blood pressure 117 mm[Hg] Audie Dionne Other [facility] 06-01-2021 16:20-0500 Body height 162.56 cm Audie Dionne Other [facility] 06-01-2021 16:20-0500 Body mass index (BMI) [Ratio] 30.89 kg/m2 Audie Dionne Other [facility] 06-01-2021 16:20-0500 Body temperature 96.5 [degF] Audie Dionne Other [facility] 06-01-2021 16:20-0500 Body weight 81.65 kg Audie Dionne Other [facility] 06-01-2021 16:20-0500 Diastolic blood pressure 80 mm[Hg] Audie Dionne Other [facility] 06-01-2021 16:20-0500 Respiratory rate 18 /min Audie Dionne Other [facility] 06-01-2021 16:20-0500 SaO2% (BldA) [Mass fraction] 98 % Audie Dionne Other [facility] 06-01-2021 16:20-0500 Systolic blood pressure 119 mm[Hg] Audie Dionne Other [facility] 03-27-2021 16:20-0500 Body height 162.56 cm Audie Dionne Other [facility] 03-27-2021 16:20-0500 Body mass index (BMI) [Ratio] 31.55 kg/m2 Audie Dionne Other [facility] 03-27-2021 16:20-0500 Body temperature 96.5 [degF] Audie Dionne Other [facility] 03-27-2021 16:20-0500 Body weight 83.37 kg Audie Dionne Other [facility] 03-27-2021 16:20-0500 Diastolic blood pressure 80 mm[Hg] Audie Dionne Other [facility] 03-27-2021 16:20-0500 Respiratory rate 18 /min Audie Dionne Other [facility] 03-27-2021 16:20-0500 SaO2% (BldA) [Mass fraction] 99 % Audie Dionne Other [facility] 03-27-2021 16:20-0500 Systolic blood pressure 119 mm[Hg] Audie Dionne Other [facility] Other Encounters Encounter Date Encounter Type Care Provider Facility Start: 05-21-2023 End: 05-21-2023 ambulatory Audie Dionen Other [facility] Other Start: 05-21-2023 Office outpatient vi sit 25 minutes Audie Dionne [facility] Start: 11-19-2022 End: 11-19-2022 ambulatory Audie Dionne Other [facility] Start: 11-19-2022 Office outpatient vi sit 15 minutes Audie Dionne [facility] Start: 09-06-2022 ambulatory DAYANA LOPEZ Facility: Start: 07-17-2022 End: 07-18-2022 ambulatory Iván TOMLIN Facility:[facility] Start: 07-17-2022 End: 07-17-2022 Patient encounter procedure Iván TOMLIN [facility] Start: 07-07-2022 End: 07-08-[address] IVÁN TOMLIN . Facility: Start: 07-02-2022 End: 07-03-2022 ambulatory MD AUDIE TRUONG Facility: [facility] Start: 07-02-2022 End: 07-02-2022 Patient encounter procedure Iván TOMLIN [facility] Start: 05-31-2022 ambulatory MD PANTOJA DIONNE Facility :[facility] Start: 05-29-2022 End: 05-29-2022 ambulatory Audie Dionne Other [facility] Start: 05-29-2022 Office outpatient vi sit 25 minutes Audie Dionne [facility] Start: 05-21-2022 End: 05-22-2022 ambulatory DAYANA LOPEZ Facility:[facility] Start: 12-30-2021 End: 12-31-2021 ambulatory DAYANA LOPEZ Facility:[facility] Start: 11-21-2021 End: 11-21-2021 ambulatory Audie Dionne Other [facility] Start: 11-21-2021 Office outpatient vi sit 25 minutes Audie Dionne [facility] Start: 11-14-2021 End: 11-15-2021 ambulatory AUDIE DIONNE Facility:[facility] Start: 06-02-2021 End: 06-02-2021 ambulatory Audie Dionne Other [facility] Start: 06-02-2021 Telephone encounter Audie Dionne [facility] Start: 06-01-2021 End: 06-01-2021 ambulatory Audie Dionne Other [facility] Start: 06-01-2021 Office outpatient vi sit 25 minutes Audie Dionne [facility] Start: 03-27-2021 End: 03-27-2021 ambulatory Audie Dionne Other [facility] Start: 03-27-2021 Office outpatient ne w 45 minutes Audie Dionne [facility] Procedures Date Procedure Procedure Detail Performing Clinician Start: 01-08-2019 Esophagogastroduodenoscopy Iván TOMLIN Abdominal hysterectomy Clarence TOMLIN Appendectomy Ivánalejandro TOMLIN Colonoscopy Ivánaleajndro TOMLIN Payers Date Payer Category Payer Private Health Insurance [id number] 1950 Unknown [id number] 2.16.8 [id number] 1950 Unknown [id number] 2.16.8 [id number] 1950 Unknown [id number] 2.16.84 [id number] 1950 Unknown [id number] 2.16.84 [id number] 1950 Unknown [id number] 2.16.84 [id number] 1950 Unknown [id number] 2.16.84 [id number] 1950 Unknown [id number] 2.16.84 [id number] 1950 Unknown [id number] 2.16.84 [id number] Self-pay Self Pay [id number] Unknown Self Pay [id number] Social History Date Type Detail Facility Tobacco smoking stat us MTIS Unknown if ever smoked [facility] Start: 1950 Sex Assigned At Female F [facility] Sex Assigned At [facility] Start: 07-02-2022 Tobacco smoking status Never s moked tobacco (finding) [facility] Tobacco smoking status Never [facility] Goals Date Patient Goal Desired Activity /State Functional Status Date Assessment Result Facility 07-02-2022 Functional Status N/A [facility] Clinical Notes 03-27-2021 to 05-21-2023 Note [...] stain. Monitor LFTs and lipid profile periodically. [facility] Other 07-31-2023 Evaluation note* Encounter Date Diagnosis Assessment Notes Treatment Notes Treatment Clinical Notes Oct, Chronic kidney disea , stage 3b (ICD-10 - N18.32) She has [...] advised to have repeat in 5 yrs [facility] Other 03-28-2023 Note [id number] 07-17-2022 Hospital Discharge instructions Patient Education 07/17/2022 [...] TOMLIN Address: [facility] [address] [place] [address]- Business (1) When: Unknown Comments:Call for any problems. [facility]03-28-2023 NoteCustom Cystoscopy ? Voiding after the procedure: [...] if you have a fever over 100 degrees.[facility] 07-02-2022 NoteChief Complaint Pt here for referral [...] anesthesia. -CHRIS Follow-up With When Contact Information Iván TOMLIN MD, [facility] [address], [place] [address]- Additional Instructions: schedule cysto, CHRIS Patient Education [...] tab(s), Oral, q6hr fluticasone 0.05 mg/inh Nasal [place], 2 spray(s), Nasal, Daily (more content not included)...[facility] Comment: Electronically Signed By: Iván TOMLIN MD\.br\Date and Time Signed: 07/02/22 14:52 EDT\.br\Electronically Co-Signed By: Moira Estrada.br\Date and Time Co-Signed: 07/02/22 14:50 [id number] Hospital Discharge instructions Patient Education 07/02/2022 14:22:27 [...] Follow these instructions at home: Medicines Take cfsg-xkb-ujifnhs and prescription medicines only as told by [...] or the blood stops without treatment. Take qviy-idw-xddqfav and prescription medicines only as told by your health care provider. Drink enough fluid to keep your urine clear or pale yellow. This information is not intended to replace advice given to you by your health care provider. Make sure you discuss any questions you have with your health care provider. Document Released: 04/08/2006 Document Revised: 09/02/2019 Document Reviewed: 05/11/2017 [employer] Patient Education 2019 [employer]. Follow Up Care 05/31/2022 13:31:32 With:KELLY BLACKMON, Iván Hsu, URL Address: [facility] [address] [place] [address]- When: Unknown [facility] 02-07-2023 Evaluation note* Encounter Date Diagnosis [...] . Continue oral Iron. She had Colonoscopy 2019 and advised to have repeat in 5 yrs [facility] Other 08-02-2022 Evaluation note* Encounter Date Diagnosis [...] stain. Monitor LFTs and lipid profile periodically. [facility] Other 02-10-2022 Evaluation note* Encounter Date Diagnosis [...] down the progression of CKD. 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 Monitor LFTs and lipid profile periodically. [facility] Other 12-06-2021 Evaluation note* Encounter Date Diagnosis [...] down the progression of CKD. 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 She appears to be euvolemic. Continue current Medications. Mar, Secondary hyperparathyroidism (ICD-10 - N25.81) Calcium within normal limit. We will check PTH and vitamin D. Mar, Osteoporosis (ICD-10 - M81.0) Continue to alendronate and raloxifene. Continue follow with PCP. Mar, Dyslipidemia (ICD-10 - E78.5) Continue [facility]. Monitor LFTs and lipid profile periodically. [facility] Other Evaluation + Plan note Future Appointments Appointment Date:07/10/2022 11:30:00 AM Scheduled Provider: Location:[facility] Appointment Type:Urology CALL PAT FT Appointment Date:07/17/2022 08:45:00 AM Scheduled Provider: Location:[facility] Appointment Type:Urology FT Diagnostic Tests Pending * Urine Cytology ([facility]) 07/02/22 [facility] noteNo Assessments Information Available [facility] noteNo InformationNort [employer] Other [facility]zrh[facility] general Narrative - Reported* Type Description Date Medical History HTN Medical History Hypothyroidism Medical History hyperlipidemia Medical History acid reflux Medical History anxiety Medical History PRE DIABETIC Medical History mixed hypercholestolemia Medical History CKD STAGE 3 Medical History INSOMNIA Surgical History hysterectomy, total with BSO Surgical History fallopian tube removed Hospitalization History see above hx Hospitalization History N&V [facility] Other Hisgnyh general Narrative - Reported* Type Description Date [...] History see above hx Hospitalization History N&V [facility] Other Hospital course Narrative No data available for this section [facility] progress note No data available for this section [facility] Summary Purpose Family History No Family History Records FoundNo Family History Records Found Advance Directives No Advanced Directives Records FoundNo Advanced Directives Records Found Additional Source Comments REASON FOR VISIT (unrecogniz ed section and content) RENAL CKD 3CKD and hyperpara thyroidismNo InformationCKD and HTNCKD and HTNCKD and HTNCKD and HTN Patient Care team informatio n (unrecognized section and content) Personnel Name: DAYANA PEPPER CNPSampson Address: Address: [facility] [facility], [place] [address]- Personnel Name: DAYANA PEPPER CNP Address: Address: [facility] [address] [facility], [place] [address]- [place] INFORMATION SOURCE (unrecogn ized section and content) DATE CREATED AUTHOR 07/24/2022 [facility] DATE CREATED AUTHOR AUTHOR'S ORGANIZ ATION 09/05/2022 [facility] pital FOR RECORDS PERTAINING TO PATIENTS WHO [...] BE BASED ON THE PRIMARY CLINICAL RECORDS. [facility] [employer] provides no warranty or guarantee of the accuracy or completeness of information in this document.
[2023-07-16 09:33] LABS: Basophils Absolute Auto 0.1 10^3/uL (0.0-0.1); Eosinophils Absolute Auto 0.3 10^3/uL (0.0-0.7); Eosinophils Percent Auto 3.7 % (0.9-7.0); Hematocrit 39.5 % (36.0-48.0); Hemoglobin 12.1 g/dL (12.0-16.0); Immature Granulocytes Abs Auto 0.01 10^3/uL (0.00-0.03); Immature Granulocytes Pct Auto 0.1 % (0.0-0.5); Lymphocytes Absolute Auto 1.9 10^3/uL (1.2-3.8); Lymphocytes Percent Auto 26.8 % (20.5-60.0); Mean Corpuscular HGB Conc 30.6 g/dL (29.9-35.2); Mean Corpuscular Hemoglobin 27.1 pg (26.7-34.0); Mean Corpuscular Volume 88.4 fL (81.0-99.0); Mean Platelet Volume 11.4 fL (9.5-13.5); Monocytes Absolute Auto 0.6 10^3/uL (0.3-0.8); Monocytes Percent Auto 7.8 % (1.7-12.0); Neutrophils Absolute Auto 4.4 10^3/uL (1.4-6.5); Neutrophils Percent Auto 60.6 % (43.0-75.0); Platelet Count 254 10^3/uL (150-450); Red Blood Count 4.47 10^6/uL (4.20-5.40); Red Cell Distribution Width 14.2 % (11.0-15.0); White Blood Count 7.2 10^3/uL (4.0-11.0)
[2023-07-16 10:30] LABS: Estimated Average Glucose 126 mg/dL
[2023-07-16 10:55] LABS: Alanine Aminotransferase 20 U/L (14-59); Albumin Globulin Ratio 0.7; Alkaline Phosphatase 56 U/L (46-116); Anion Gap 17.5; Aspartate Amino Transferase 14 U/L (15-37); BUN Creatinine Ratio 11.6; Bilirubin Total 0.3 mg/dL (0.2-1.0); Calcium 8.3 mg/dL (8.5-10.1); Carbon Dioxide 26.5 mmol/L (21.0-32.0); Chloride 102 mmol/L (98-107); Cholesterol 207 mg/dL (<=200); Estimated GFR (African America 42 (>=60); Estimated GFR (Non-African Ame 35 (>=60); Free T3 2.41 pg/mL (2.18-3.98); Globulin 4.5 g/dL; Glucose 94 mg/dL (74-106); HDL Cholesterol 52 mg/dL (40-60); Sodium 142 mmol/L (136-145); Thyroid Stimulating Hormone 0.126 uIU/mL (0.358-3.740); Total Protein 7.5 g/dL (6.4-8.2); Triglycerides 192 mg/dL (<=150); VLDL CHOLESTEROL 38.4 mg/dL
[2023-07-17 11:10] LABS: Insulin 13.7 uIU/mL (2.6-24.9)
== END 2023-07-16 08:53 | disposition home or self-care (01) ==
LOC: LAB 08:54
PROVIDERS: PCP Nurse Practitioner Family; Visit Provider Nurse Practitioner Family
DX: I10 Essential (primary) hypertension (principal)
CPT/HCPCS: 36415; 80053; 80061; 82306; 83036; 83525; 83540; 84436; 84443; 84481; 85025

== ENCOUNTER 2023-08-06 11:21 | Outpatient (OUT) | payer MEDICARE, SELFPAY ==
--- OUTSIDE RECORDS SUMMARY | 2023-08-06 11:36 | XMS_ITS | CCD ---
Author Organization [facility] Care Team Providers Care Dental Hygiene Instructor Name Role Phone Audie Truong Unavailable DAYANA PEPPER Primary Care Physician [phone] MD AUDIE TRUONG Referring Unavailable Iván TOMLIN [...] Unavailable DIONNE, AUDIE Attending Unavailable JOHN, DAYANA Attending Unavailable UTE, DR MONTENEGRO Referring [...] Medication Allergies] Propensity to adverse reactions (disorder) [facility] Repository Medications Current Medications Medication Drug Class(es) [...] a day Active fluticasone 0.05 mg/inh Nasal Badger (2 sources) Start: 01-01-2019 take 2 spray(s) nasal route once daily fluticasone 0.05 mg/inh Nasal Badger 2 spray(s), Nasal, Daily, each nostril Start [...] procedure, # 2 tab(s), Refills(s) 0, Pharmacy: [facility]/pharmacy #[id number], 162, cm, 07/02/22 14:24:00 EDT, Height/Length [...] Range Facility Coding Summary.on 07-19-2022 Coding Summary. CD:[id number] Ww+PGhlYWQ+PJ0ZLPOpO 99daOWiyB8iO5EPSZpTK ywgQVBQTElOSyIgbmFtZ H3kwGXbQETt IC8+RG1dAESbGiazqAGw q6H0tAF7I98zek5dQZbq yKR8BOAjTmZkzkicp4vk uRf4YWtrKesuYvVu MVHumE96NAJ0zW78Ki56 oMQtzPEwo5abtKk1YkLo NIKuNVX3hPvlBTwyf8Qc BNYlX71elJAkb7X6 IGNvbGxhcHNlOyBlbXB0 zG3fGImzylafj2psniij Hsn2pg77zZQht8C7wNW6 J1SsfpL3ZSSstABx JucubPQNcE8plbhht6lw shkvCvCtKCUuKUb7SDy3 EVXmbSrqMpQrXD73UBV0 TZQqraWrC8ZsPPEz yPceNkR9i2J2Hs1JQ8FZ EfazZ4QKCEOMKJcjiDO+ XI20lj80I9SsXpgqMwa5 OAFuRTL1qIK7nT9c XWTcOTfld0V1rTU1G1Np lyBjtt9ez3wwCRYzMTjy Q17ltMCed7J6QELzeUF2 LICpnYjzTlPlqZ56 Oyc+GKZxoPpbt8YyNeqm c5hat5vrjVf0SogmSTRh qrTtyJmtRYO8o4FgCc9j PVRycEM2dJF8fT8o NhMuLgR0FCfvD538UcLq cGNfOzwyX26pL2AvdHL+ UOUoBok6FQMbkLozNA2o S4JtHKJubiylhVIp pGagFG3cDRFdglnoGPWd cY4vCEIaZ4j7GhUaXbA2 BUptH0IdVNHzvvgbIm60 rG5vUlRgPdO9GAuj E7NobiV4FIQqvQEkHGkf SEU8Y73qb5B2FZIiFKUi JKA7sMB4vC4bfVmewesb bGVmdDsgdmVydGlj OQwuWSbdI857LEGhfLck PkNvZGluZyBEYXRlOiAg MDMvMzAvMjAyMzwvdGQ+ VYZtAUI5hNskEFTi zHSrOLsbQo7prPjkqLep CZ7wLGWmhzetCSAppN5l TREhjJKvbPulOO0fEGYd lfhda694DkHsPJO4 YVSlrUKpS4DtkW2eEcDp EKPeLEQpZ6ZijIBpEHhx G566DJlqYgP1EHMfwoXn E7PqVVJuyPcgWpW5 o0V7Gr0Kf2FfarfiL0He iRQpMvKoMftwSLn0F9Xu PjwvdHI+PG40LBYtVW46 NDq1QIM6sFomELrp ZWEqS7ChtI3cNoVtJSOd ZGRkOyc+PHRhYmxlIHdp ZHRoPScxMDAlJyBzdHls RJ3kZq5qNLRvFYVq fCqlkIJcEfDlv0rbSKFm ARbtYA9vcCwoU1RtvIQ2 CMXjc9s6Ic21K40hE1Sy dXA+ILKyxLJ5cAG5 qQ9oLnWoIpF7DRdcA896 OnOlmWYwCxclf8suu3dt eIm2HyS3VUMyknMatCic DDI2w4QwPv69C10v IHdpZHRoPSIxNSUiIHZh rWrolo7yvV1oIl5+PGNv sQB8kES9uE8xArAyUzF0 BQipY343HtStvNJs Ramrf9lis3fqiLl3RgSe RKRzraWajOxmBLL4i7Gt Tq83B8FooVwaz3ZrPei9 zc05wSJwc5V0jOJ1 F9XiEVIxpooqeWXctWwg HB6qJJCumjcdJUOmiZ4e NZUqN4p4SiEwUbQ5LBzj Q9EfluA2GMDilKKi DHGqjPPAxG9ehvuoy4wr biazWnCfUDBrAZx0LBo1 BGSmuDtkRpAsGOX1JzC9 ZMC9zIVjrM4kyDnd ddasrM9zVvv+FAC9kSAf lQOORN7bZcywtXL+PHRk QYJ3oPkzVGneENMnuJ2i QQXuB1d2NaEfLdO6 XAexN5FiciT0ESJtdIXo WSUnhAFMpP6ngjsph7zr jfdzHvHbDOKmPDf0UYp1 LWFsaWduOiBsZWZ0 WtD9WWS5lCDlkU1btJku ivgeaQ4oGqq+QmlydGgg ITS3SWl7T3ZhXzl6HPIw dTdqDI7vlFUmJIpj Mh9sfThenWkdTS4mCDBa frtwn542XkJuk3crZEKh nKXkZEmpTSJ2B00wm9X6 CSDiVSErMWD4nHD5 vN6hiBfizwnftWNjnZav wsYsxCfwJGeiXFjeR804 IBZubMpxSsNpLAm7J9Mk Cnw8EAXigTreJF6o nUUaMXgzYq1hcOcuiAok LD0wWXTduvwkg383WwOf s2klEDBweXPnJJwcQLX1 S27vj6D3DIUnBTDz ITD1nOM9nM6rkOctgzay bGVmdDsgdmVydGljYWwt GIqwG803OXQbwOwnMhNp mVe6B6RuDta3EESz yMzcWW2ppLOkJVosVg5q wEqtiVtiMK0zIXGymlkr b801FzIsh5rmTULylIOb TXydEMC6H72as1U5 YDPyIMAgRMY9hWP7aA3p bGlnbjogbGVmdDsgdmVy pQpeQKelDPwaJ927BVBn cDsnPlBhdGllbnQg VKlpILm5A6SbJoqnuBZ+ LC79JMYkAQ58oMKnpWUm n5bkiXv7BaHpFEMuIBG0 nNxwRNeqe1AcWKBf E58doSDgm6B5VAVxgNlg gMWcYyFitJI3oO0hNHpt ibyjc5nxxltfGasmp9it dv63dS89V38rTAuo ZHRoPSIzMCUiIHZhbGln nz7plT0aIj6+PGNvbCB3 pQA4kA1zFIBwZtX2QDpv L732AgKorYDgYjap n8waq9jjbQm5GuW4PBHy nqZgsKiqGUI0h8CgIe33 N60vANfvBGXaZOWxJTHp QKShwZdmts7zmN7g Ii8+AAWdcCN6oFF9rX2x DrVhQpL9QEhbG318CgKt yBQbCzswR28jG6ZilOQ+ YFGaJoi7ZBDwkDxa ZF3gsCQuJBrmXf0qTGD8 VaGlIyHpBLrzM9MjYQCp biocrtenkYB8ZGApCJSy xE88Rx6gaGkyZPKq lJBUbI8afanew7sfercx StMkZQZjGAb3EXj9BSWf kXxsAdQjMQB4QaI6RZT6 cIEfxV7luAshgimk uC6hK1XeOHIrgojcIw56 vX8jDiJySoF0TBkhYvu+ U6RYElYRCHOFDSVSI6VN TkUgQTwvdGQ+PHRk YPG1lPtgKQndTBRbyJ9a MGAaN4f0JoQnDoY5YYlx I2OwWQWjvureNc69pC1z GrMgCnD0KBnxZ2Pc dyG2LNJjoDWpNVjhUOD2 Q49bm5O3IJCjMADvNYO4 bJJ9jW3pmHqivirntIId dDsgdmVydGljYWwt NRfzM221PECnmKrrMoIl ErZhNmE3IIC6N9LoYfz0 CSMblHhcBU9lfSEfSBox Qb2xiRqpcZesLG0t SEDmpvzrDHGkqK3wHHTb hBUxfTqsTP0oHRAamfox b171KyBaGRO3UXZuxQSh Q1VgtC4cLoNjRDVv MEBpG4DlcQNzYBvvB388 WPvqZuK1GLQljkWcV4Ut VQDowSgvGxN8u1V6Np64 MCBZZWFyczwvdGQ+ TLArWND7nZpzDZxiETVy wC5vJCEoG4v4EtCeUfB5 HYjgA8QjIKKmcqkeZe65 tT5iFdRaOyI0VIya K8ZkujG1VGIhhMQsVYez DAI8F92bs6B5QFKtZRFj XUR8iWT9jT2bwDwaonro bGVmdDsgdmVydGlj LBiqAEwcV983ABZqpQjz PkZlbWFsZTwvdGQ+PHRk BFR0wIpfBAeySSFibH8s QSJuK1j9RpUeBgI4 QQicU1PaCAHqtgauJa38 hC7bZsEjPaL9SLorJ6Mv rgN0FHNsjGCuMRbwOOL5 E74lc2P5UJIqTUMj WDS1eNY6aC0npFcqrndx bGVmdDsgdmVydGljYWwt LWdmX113RWEdfTsjJf46 aQBgbCtucxW2Z0Ij PjwvdHI+NZ09JPTnKX88 nTWlgGHyg0febEr4ZqTt WSDoKQB4kQgsMTboj1Du DXCxR41rqLBfe2M5 IGNvbGxhcHNlOyBlbXB0 rP5uHUzmbtiok5zwllso Vjase2foct91bY56W20u IHdpZHRoPSIzMCUi ZWQvlQpbtz7toY4mHi3+ UMTbqLX7zCS4tK8uAsBq DnT9SMogB110UiVvlXUq Wyxwl1nch2rsoFa8 IjIwJSIgdmFsaWduPSJ0 s6TgEv73Z86fQQhfWSYj NFIsNIShIDGdtGjwnm1o xW0mKd6+VV9kt7jf ys44wN37yZE+PHRkIHN0 uPjpDAitWMMkgR0lLOwz OuG6XAKpNgEyaN14jBRf RGfmNt2xvZwupOfq KQ5jYKUgmwlag315DmVv u2rcSKFtbWCpAYagFYN9 M48ju9J0AYZlNEFsBPN2 yWB5bU3hkFmijllb bGVmdDsgdmVydGljYWwt AWfkN271JGUstWfbAsAn cZUdP8uezvOHYX7nFbof dGQ+KMQoGRR6lAve XDkbPDQcnC1vDPYkW2q0 TpLuYwX1OOgsB7WtwlV5 OSBpkJLzKIGnbKDCjI4y mwkmi1ohqtcySnGh TRDcPSn2AEo7CQCdxOon ToSoODV2WcJ1LBZ3zJRn kY2gkCalmrlztY1qUye+ RklOOjwvdGQ+PHRk TDF7nMyhUBdqNBAabB0f GTOdX9r6CfJdKnE6ZIvb E7WqjpU2TGZazXRoRAUn aPPLaN2zmzyuw8pu xnlbGzRkYCMqSJa0QYt4 RQRqgPsnToEtSEL0ZzD3 MZI3yZRykE2rgHjymehm mJ3iOzq+TVJOOjwv dGQ+RFPhIYK2zSsmMJhj FZMfhB7cFWHsD5u5IjMo WlF0HOsbW2CbyrD7RVQq uOYqTOZikROVoU0h stxza0lwvrxgVbBwJDCc WEo9TCy7OEExpOxhBpTb PIO1AnD5AEB9fPOzsH1y eNeocrfzlJ6iDjl+ IBA9FDP3IX90VP45V4Xr PjwvdGFibGU+PHRhYmxl IHdpZHRoPScxMDAlJyBz qLcgYW6hNu7nKHQl LWNvbGxh (more content not included)... Normal [facility] Consent for Procedure/Surger yon 07-17-2022 Consent for Procedure/Surgery [id number] 0#1.00CD:127 [facility] Consent for Treatmenton 03-2 Consent for Treatment [id number] #1.00CD:127 [facility] IntraOperative Documentson 0 07-17-2022 IntraOperative Documents [id number] 2#1.00CD:127 [facility] Main OR Intraoperative Recor don 07-17-2022 Main OR Intraoperative Record IntraOp Document Type FTURO Summary Primary Physician: Iván TOMLIN MD Finalized Date/Time: 07/17/22 09:10:19 Pt. Name: PEG HADLEY/Sex: 1950 Female Med Rec #: [id number] Physician: Iván TOMLIN MD Financial #: [id number] Pt. Type: O Room/Bed: / Admit/Disch: 07/17/22 [...] Palma Ko Role Performed Surgeon - Primary Business Planning Analyst - Primary Scrub - Primary Time In [...] Participants Kusum BELL, KRISTIANOR, Applicable) Lorraine Ko JAVA APPLICATION ENGINEER, Palma Flynn Time Out Complete 07/17/22 09:03:00 [...] Noe RN, Ruthann Document Signatures Signed By: DDERA Noe RN, Ruthann 07/17/22 09:10 Normal [facility] Main OR Preoperative Recordo n 07-17-2022 Main OR Preoperative Record Holding Area Document Type FTURO Summary Primary Physician: Iván TOMLIN MD Finalized Date/Time: 07/17/22 09:04:54 Pt. Name: PEG HADLEY/Sex: 1950 Female Med Rec #: [id number] Physician: Iván TOMLIN MD Financial #: [id number] Pt. Type: O Room/Bed: / Admit/Disch: 07/17/22 [...] No Pain Comment: na Skin Integrity Intact, [place], Warm, & Dry Vitals - EU Blood Pressure 135/82 Pulse 65 bpm Respirations 16 br/min SPO2 96 % RN Reviewed Yes Last Modified By: DEDRA Noe RN, Ruthann 07/17/22 09:04:49 General Comments: temp:36.4 Finalized By: DEDRA Noe RN, Ruthann Document Signatures Signed By: Maeve Florian LPN 07/17/22 08:41 DEDRA Noe RN, Ruthann 07/17/22 09:04 [facility] Operative Reporton Operative Report Patient: PEG HADLEY [...] follow-up on a as needed basis.. Normal [facility] Comment on above: Result Comment: Elec tronically Signed By: Iván TOMLIN MD\.br\Date and Time Signed: 07/17/22 09:13 EDT RAD - Ultrasound Reporton RAD - Ultrasound Report [id number] #1.00CD:127 Normal [facility] Urine Cytology ([facility])on 0 07-09-2022 Urine Cytology Diagnosis Info Invalid Interpretation Code [facility] Comment on above: Result Comment: A:Ur ine,Urine:Voided Interpretation - MicroScopic Description - Adequacy - Gross Description Site ID:A color Light Yellow fixative Alcohol Specimen designated Urine received in alcohol preservative and labeled with the patient?s name, consists of 40ml clear light yellow fluid. Electronically signed by : on: 07/09/2022 15:10:50 Performed By: #### 1 [id number] ####[facility] [address] [place] [address] US KIDNEYSon 07-07-2022 US KIDNEYS EXAM: US [...] by: DANIELLE CAM Date: 2022-07-07 10:33 Normal [facility] Formson 07-03-2022 Forms [id number] #1.00CD:127 Normal [facility] Physician Referralon 023 Physician Referral [id number] #1.00CD:127 Normal [facility] Pre-Certification Formon Pre-Certification Form [id number] 8#1.00CD:127 Normal [facility] Ambulatory Visit Summaryon 0 07-02-2022 Ambulatory Visit Summary PEG HADLEY :1950 Visit Date:07/02/2022 Ambulatory Visit Instructions Your Diagnosis Microscopic hematuria Tests Performed Urnls Dip Stick Auto w/o Microscopy POC 48404 US Renal -- Results Pending -- Please [...] Tab) fluticasone nasal (fluticasone 0.05 mg/inh Nasal Badger) hyoscyamine (hyoscyamine 0.125 mg oral Tab) levothyroxine [...] [facility] [address] , [place] [address]- Medications What How Much When Instructions Unchanged [...] fluticasone nasal (fluticasone 0.05 mg/ inh Nasal Badger) 2 Sprays Nasal Inhalation Every day each [...] Urnls Dip Stick Auto w/o Microscopy POC 12397 (07/02/2022) Bilirubin Urine Dipstick - Negative Blood Urine Dipstick - Trace-lysed Glucose Urine Dipstick - Negative Ketones Urine Dipstick - Negative Leukocytes Urine Dipstick - Negative Nitrite Urine Dipstick - Negative Protein Urine Dipstick - Negative Specific [place] Urine Dipstick - >=1.030 Urine Appearance Urine [...] include: ? (more content not included)... Normal [facility] Patient Educationon 07-03-19 Patient Education Urology Hematuria, [...] these instructions at home: Medicines ? Take bbpt-ujk-orbocxd and prescription medicines only as told by [...] the blood stops without treatment. ? Take evbe-iwz-bwgrlfb and prescription medicines only as told by your health care provider. ? Drink enough fluid to keep your urine clear or pale yellow. This information is not intended to replace advice given to you by your health care provider. Make sure you discuss any questions you have with your health care provider. Document Released: 04/08/2006 Document Revised: 09/02/2019 Document Reviewed: 05/11/2017 [employer] Patient Education ? 2019 [employer] [facility] Urine Cytology ([facility])on 0 07-02-2022 Method of Extraction Voided Normal [facility] Comment on above: Performed By: #### 1 [id number] ####[facility] [address] [place] [address] Number of Jars 1 Invalid Interpretation Code [facility] Comment on above: Performed By: #### 1 [id number] ####[facility] [address] [place] [address] Specimen Urine Normal [facility] Comment on above: Performed By: #### 1 [id number] ####[facility] [address] [place] [address] Type of Service Technical Only Normal [facility] Comment on above: Performed By: #### 1 [id number] ####[facility] [address] [place] [address] PTH INTACTon 05-22-2022 PTH, Intact 75 pg/mL Critically high 15-65 [facility] Comment on above: Performed By: #### P THINT #### [facility] [address] [place] [address] Dr. Andrea Mccarthy FERRITINon 05-21-2022 Ferritin [Mass/Vol] 124.0 ng/mL Normal 8.0-252.0 [facility] Comment on above: Performed By: #### U KIM, MG, PHOS #### [facility] [address] [place] [address] Dr. Andrea Mccarthy HEMOGRAM AND PLATELon 2022 Hematocrit (Bld) [Volume fraction] 40.1 % Normal 36.0-48.0 [facility] Comment on above: Performed By: #### U KIM, MG, PHOS #### [facility] [address] [place] [address] Dr. Andrea Mccarthy Hemoglobin (Bld) [Mass/Vol] 13.2 g/dL Normal 12.0-16.0 [facility] Comment on above: Performed By: #### U KIM, MG, PHOS #### [facility] [address] [place] [address] Dr. Andrea Mccarthy MCH (RBC) [Entitic mass] 28.0 pg Normal 26.7-34.0 [facility] Comment on above: Performed By: #### U KIM, MG, PHOS #### [facility] [address] [place] [address] Dr. Andrea Mccarthy MCHC (RBC) [Mass/Vol] 32.9 g/dL Normal 29.9-35.2 [facility] Comment on above: Performed By: #### U KIM, MG, PHOS #### [facility] [address] [place] [address] Dr. Andrea Mccarthy MCV (RBC) [Entitic vol] 85.1 fL Normal 81.0-99.0 [facility] Comment on above: Performed By: #### U KIM, MG, PHOS #### [facility] [address] [place] [address] Dr. Andrea Mccarthy PLT 255 103/ul Normal 150-450 [facility] Comment on above: Performed By: #### U KIM, MG, PHOS #### [facility] [address] [place] [address] Dr. Andrea Mccarthy RBC 4.71 106/ul Normal 4.20-5.40 [facility] Comment on above: Performed By: #### U KIM, MG, PHOS #### [facility] [address] [place] [address] Dr. Andrea Mccarthy WBC 5.9 103/ul Normal 4.0-11.0 [facility] Comment on above: Performed By: #### U KIM, MG, PHOS #### [facility] [address] [place] [address] Dr. Andrea Mccarthy IRON AND TIBCon 05-21-2022 % SATURATION 18.5 % Normal [facility] Comment on above: Performed By: #### U KIM, MG, PHOS #### [facility] [address] [place] [address] Dr. Andrea Mccarthy Iron [Mass/Vol] 51.0 ug/dL Normal 50.0-170.0 [facility] Comment on above: Performed By: #### U KIM, MG, PHOS #### [facility] [address] [address] [address] Andrea Mccarthy TIBC DIRECT 276.0 ug/dL Normal 250.0-450.0 [facility] Comment on above: Performed By: #### U KIM, MG, PHOS #### [facility] [address] [place] [address] Dr. Andrea Mccarthy MAGNESIUMon 05-21-2022 Magnesium [Mass/Vol] 1.8 mg/dL Normal 1.8-2.4 [facility] Comment on above: Performed By: #### U KIM, MG, PHOS #### [facility] [address] [address] [address] Andrea Mccarthy RENAL FUNCTION PANELon 05-21 Albumin [Mass/Vol] 3.5 g/dL Normal 3.4-5.0 [facility] Comment on above: Performed By: #### U KIM, MG, PHOS #### [facility] [address] [address] [address] Andrea Mccarthy Calcium [Mass/Vol] 8.5 mg/dL Normal 8.5-10.1 [facility] Comment on above: Performed By: #### U KIM, MG, PHOS #### [facility] [address] [place] [address] Dr. Andrea Mccarthy Chloride [Moles/Vol] 104 mmol/L Normal 98-107 [facility] Comment on above: Performed By: #### U KIM, MG, PHOS #### [facility] [address] [place] [address] Dr. Andrea Mccarthy CO2 [Moles/Vol] 29.6 mmol/L Normal 21.0-32.0 [facility] Comment on above: Performed By: #### U KIM, MG, PHOS #### [facility] [address] [place] [address] Dr. Andrea Mccarthy Creatinine [Mass/Vol] 1.23 mg/dL Critically high 0.55-1.02 [facility] Comment on above: Performed By: #### U KIM, MG, PHOS #### [facility] [address] [address] [address] Andrea Mccarthy EGFR-AF WALLISIAN 52 mL/min/1.73m2 Critically low >=60 [facility] Comment on above: Performed By: #### U KIM, MG, PHOS #### [facility] [address] [address] [address] Andrea Mccarthy EGFR-NON AF WALLISIAN 43 mL/min/1.73m2 Critically low >=60 [facility] Comment on above: Performed By: #### U KIM, MG, PHOS #### [facility] [address] [address] [address] Andrea Mccarthy Glucose [Mass/Vol] 92 mg/dL Normal 74-106 [facility] Comment on above: Performed By: #### U KIM, MG, PHOS #### [facility] [address] [place] [address] Dr. Andrea Mccarthy Phosphate [Mass/Vol] 3.3 mg/dL Normal 2.6-4.7 [facility] Comment on above: Performed By: #### U KIM, MG, PHOS #### [facility] [address] [address] [address] Andrea Mccarthy Potassium [Moles/Vol] 3.9 mmol/L Normal 3.5-5.1 [facility] Comment on above: Performed By: #### U KIM, MG, PHOS #### [facility] [address] [address] [address] Andrea Mccarthy Sodium [Moles/Vol] 141 mmol/L Normal 136-145 [facility] Comment on above: Performed By: #### U KIM, MG, PHOS #### [facility] [address] [address] [address] Andrea Mccarthy Urea nitrogen [Mass/Vol] 25.0 mg/dL Critically high 7.0-18.0 [facility] Comment on above: Performed By: #### U KIM, MG, PHOS #### [facility] [address] [address] [address] Andrea Mccarthy UA RANDOM W/MICROSCOPICon BACTERIA NONE SEEN Normal NONE SEEN [facility] Comment on above: Performed By: #### U AMIC #### [facility] [address] [address] [address] Andrea Mccarthy Bilirubin Ql (U) Negative Normal NEGATIVE [facility] Comment on above: Performed By: #### U AMIC #### [facility] [address] [address] [address] Andrea Mccarthy CAST NONE SEEN Normal NONE SEEN [facility] Comment on above: Performed By: #### U AMIC #### [facility] [address] [address] [address] Andrea Mccarthy Clarity (U) CLEAR Normal CLEAR [facility] Comment on above: Performed By: #### U AMIC #### [facility] [address] [place] [address] Dr. Andrea Mccarthy Color (U) YELLOW Normal YELLOW [facility] Comment on above: Performed By: #### U AMIC #### [facility] [address] [address] [address] Andrea Mccarthy Crystals LM Nom (Urine sed) NONE SEEN Normal NONE SEEN [facility] Comment on above: Performed By: #### U AMIC #### [facility] [address] [address] [address] Andrea Mccarthy Epithelial cells LM Ql (Urine sed) FEW Abnormal NONE SEEN /RARE [facility] Comment on above: Performed By: #### U AMIC #### [facility] [address] [address] [address] Andrea Mccarthy Glucose Ql (U) Negative Normal NEGATIVE [facility] Comment on above: Performed By: #### U AMIC #### [facility] [address] [address] [address] Andrea Mccarthy Hemoglobin Ql (U) TRACE-INTACT Abnormal NEGATIVE [facility] Comment on above: Performed By: #### U AMIC #### [facility] [address] [place] [address] Dr. Andrea Mccarthy Ketones Ql (U) Negative Normal NEGATIVE [facility] Comment on above: Performed By: #### U AMIC #### [facility] [address] [address] [address] Andrea Mccarthy LEUKOCYTES Negative Normal NEGATIVE [facility] Comment on above: Performed By: #### U AMIC #### [facility] [address] [address] [address] Andrea Mccarthy MUCOUS TRACE Abnormal NONE SEEN [facility] Comment on above: Performed By: #### U AMIC #### [facility] [address] [address] [address] Andrea Mccarthy Nitrite Ql (U) Negative Normal NEGATIVE [facility] Comment on above: Performed By: #### U AMIC #### [facility] [address] [place] [address] Dr. Andrea Mccarthy pH (U) 5.0 [pH] Normal 5-9 [facility] Comment on above: Performed By: #### U AMIC #### [facility] [address] [address] [address] Andrea Mccarthy RBC 0-2 Normal 0-2 [facility] Comment on above: Performed By: #### U AMIC #### [facility] [address] [address] [address] Andrea Mccarthy SPEC GRAVITY 1.025 Normal 1.005-<=1.025 [facility] Comment on above: Performed By: #### U AMIC #### [facility] [address] [address] [address] Andrea Mccarthy UA PROTEIN Negative Normal NEGATIVE/ TRACE [facility] Comment on above: Performed By: #### U AMIC #### [facility] [address] [place] [address] Dr. Andrea Mccarthy Urobilinogen Qn (U) 0.2 {Mikel'U}/dL Normal 0.2 - 1. 0 [facility] Comment on above: Performed By: #### U AMIC #### [facility] [address] [place] [address] Dr. Andrea Mccarthy WBC NONE SEEN Normal NONE SEEN [facility] Comment on above: Performed By: #### U AMIC #### [facility] [address] [address] [address] Andrea Mccarthy URINE T PROTEIN CREAT RATIOo n 05-21-2022 Protein (U) [Mass/Vol] 21.5 mg/dL Critically high <=12.0 [facility] Comment on above: Performed By: #### U KIM, MG, PHOS #### [facility] [address] [address] [address] Andrea Mccarthy UR PROT CREAT RAT 0.15 Normal [facility] Comment on above: Performed By: #### U KIM, MG, PHOS #### [facility] [address] [place] [address] Dr. Andrea Mccarthy URINE CREAT 144.81 mg/dL Normal 20.00-300.00 [facility] Comment on above: Performed By: #### U KIM, MG, PHOS #### [facility] [address] [place] [address] Dr. Andrea Mccarthy VIT B12 AND FOLATEon 023 Cobalamin (Vitamin B12) [Mass/Vol] 1425.0 pg/mL Critically high 193.0-986.0 [facility] Comment on above: Performed By: #### U KIM, MG, PHOS #### [facility] [address] [place] [address] Dr. Andrea Mccarthy FOLATE 22.60 ng/mL Normal 8.60-58.90 [facility] Comment on above: Performed By: #### U KIM, MG, PHOS #### [facility] [address] [place] [address] SINUSES WO CONon [...] Normal The [facility] INSULINon 11-15-2021 Insulin 9.0 uIU/mL Normal 2.6-24.9 [facility] Comment on above: Performed By: #### I NSULIN #### [facility] [address] [address] [address] Andrea Mccarthy PTH INTACTon 11-15-2021 PTH, Intact 43 pg/mL Normal 15-65 [facility] Comment on above: Performed By: #### U KIM, MG, PHOS #### [facility] [address] [address] [address] Andrea Mccarthy VIT D 25-OH LABCORPon 2021 Vitamin D, 25-Hydroxy 85.4 ng/mL Normal 30.0-100.0 [facility] Comment on above: Result Comment: Samina min D deficiency has been defined by the [place] of [employer] and an Endocrine Society practice guideline as a level of serum 25-OH vitamin D less than 20 ng/mL (1,2). The Endocrine Society went on to further define vitamin D insufficiency as a level between 21 and 29 ng/mL (2). 1. IOM ([place] of [employer]). 2010. Dietary reference intakes for calcium and D. De [place]: The National Academies Press. 2. Dagoberto MF, Rachel NC, Edilson MARTINEZ, et al. Evaluation, treatment, and prevention of vitamin D deficiency: an Endocrine Society clinical practice guideline. JCEM. 2010; 96(7):1911-30. Performed By: #### V ITADLC #### [facility] [address] [place] [address] Dr. Andrea Mccarthy CBC AUTO DIFFon 11-14-2021 BASO # 0.0 103/ul Normal 0.0-0.1 [facility] Comment on above: Performed By: #### U KIM, MG, PHOS #### [facility] [address] [place] [address] Dr. Andrea Mccarthy Basophils/100 WBC (Bld) 0.6 % Normal 0.2-2.0 [facility] Comment on above: Performed By: #### U KIM, MG, PHOS #### [facility] [address] [place] [address] Dr. Andrea Mccarthy EO # 0.2 103/ul Normal 0.0-0.7 [facility] Comment on above: Performed By: #### U KIM, MG, PHOS #### [facility] [address] [place] [address] Dr. Andrea Mccarthy Eosinophils/100 WBC (Bld) 2.4 % Normal 0.9-7.0 [facility] Comment on above: Performed By: #### U KIM, MG, PHOS #### [facility] [address] [place] [address] Dr. Andrea Mccarthy Erythrocyte distribution width (RBC) [Ratio] 14.0 % Normal 11.0-15.0 [facility] Comment on above: Performed By: #### U KIM, MG, PHOS #### [facility] [address] [place] [address] Dr. Andrea Mccarthy Hematocrit (Bld) [Volume fraction] 35.7 % Critically low 36.0-48.0 [facility] Comment on above: Performed By: #### U KIM, MG, PHOS #### [facility] [address] [place] [address] Dr. Andrea Mccarthy Hemoglobin (Bld) [Mass/Vol] 11.2 g/dL Critically low 12.0-16.0 [facility] Comment on above: Performed By: #### U KIM, MG, PHOS #### [facility] [address] [place] [address] Dr. Andrea Mccarthy IG # 0.02 10e3/ul Normal 0.00-0.03 [facility] Comment on above: Performed By: #### U KIM, MG, PHOS #### [facility] [address] [place] [address] Dr. Andrea Mccarthy IG % 0.3 % Normal 0.0-0.5 [facility] Comment on above: Performed By: #### U KIM, MG, PHOS #### [facility] [address] [place] [address] Dr. Andrea Mccarthy LYMPH # 1.8 103/ul Normal 1.2-3.8 [facility] Comment on above: Performed By: #### U KIM, MG, PHOS #### [facility] [address] [place] [address] Dr. Andrea Mccarthy Lymphocytes/100 WBC (Bld) 24.9 % Normal 20.5-60.0 [facility] Comment on above: Performed By: #### U KIM, MG, PHOS #### [facility] [address] [place] [address] Dr. Andrea Mccarthy MANUAL DIFF REQ NO Normal [facility] Comment on above: Performed By: #### U KIM, MG, PHOS #### [facility] [address] [place] [address] Dr. Andrea Mccarthy MCH (RBC) [Entitic mass] 27.3 pg Normal 26.7-34.0 [facility] Comment on above: Performed By: #### U KIM, MG, PHOS #### [facility] [address] [place] [address] Dr. Andrea Mccarthy MCHC (RBC) [Mass/Vol] 31.4 g/dL Normal 29.9-35.2 [facility] Comment on above: Performed By: #### U KIM, MG, PHOS #### [facility] [address] [place] [address] Dr. Andrea Mccarthy MCV (RBC) [Entitic vol] 87.1 fL Normal 81.0-99.0 [facility] Comment on above: Performed By: #### U KIM, MG, PHOS #### [facility] [address] [place] [address] Dr. Andrea Mccarthy MONO # 0.5 103/ul Normal 0.3-0.8 [facility] Comment on above: Performed By: #### U KIM, MG, PHOS #### [facility] [address] [place] [address] Dr. Andrea Mccarthy Monocytes/100 WBC (Bld) 7.0 % Normal 1.7-12.0 [facility] Comment on above: Performed By: #### U KIM, MG, PHOS #### [facility] [address] [place] [address] Dr. Andrea Mccarthy NEUT # 4.7 103/ul Normal 1.4-6.5 [facility] Comment on above: Performed By: #### U KIM, MG, PHOS #### [facility] [address] [place] [address] Dr. Andrea Mccarthy Neutrophils/100 WBC (Bld) 64.8 % Normal 43.0-75.0 [facility] Comment on above: Performed By: #### U KIM, MG, PHOS #### [facility] [address] [place] [address] Dr. Andrea Mccarthy Platelet mean volume (Bld) [Entitic vol] 10.1 fL Normal 9.5-13.5 [facility] Comment on above: Performed By: #### U KIM, MG, PHOS #### [facility] [address] [place] [address] Dr. Andrea Mccarthy PLT 309 103/ul Normal 150-450 [facility] Comment on above: Performed By: #### U KIM, MG, PHOS #### [facility] [address] [place] [address] Dr. Andrea Mccarthy RBC 4.10 106/ul Critically low 4.20-5.40 [facility] Comment on above: Performed By: #### U KIM, MG, PHOS #### [facility] [address] [address] [address] Andrea Mccarthy WBC 7.2 103/ul Normal 4.0-11.0 [facility] Comment on above: Performed By: #### U KIM, MG, PHOS #### [facility] [address] [address] [address] Andrea Mccarthy FREE THYROXINE INDEX T7on FTI 4.14 Normal 1.30-4.50 [facility] Comment on above: Performed By: #### U KIM, MG, PHOS #### [facility] [address] [place] [address] Dr. Andrea Mccarthy T3U 36.0 % Normal 30.0-39.0 [facility] Comment on above: Performed By: #### U KIM, MG, PHOS #### [facility] [address] [place] [address] Dr. Andrea Mccarthy T4 [Mass/Vol] 11.50 ug/dL Normal 4.80-13.90 [facility] Comment on above: Performed By: #### U KIM, MG, PHOS #### [facility] [address] [place] [address] Dr. Andrea Mccarthy GLYCOHEMOGLOBIN A1Con 2021 ADA RECOMMENDATION SEE BELOW Normal [facility] Comment on above: Result Comment: ADA RECOMMENDED LIMIT 4.0 - 6.0 ADA THERAPEUTIC TARGET < 7.0 ACTION SUGGESTED > 7.0 Performed By: #### A 1C #### [facility] [address] [place] [address] Dr. Andrea Mccarthy Glucose [Mass/Vol] 137 mg/dL Normal [facility] Comment on above: Performed By: #### A 1C #### [facility] [address] [place] [address] Dr. Andrea Mccarthy HbA1c (Bld) [Mass fraction] 6.4 % Critically high 4.5-6.2 [facility] Comment on above: Performed By: #### A 1C #### [facility] [address] [place] [address] Dr. Andrea Mccarthy IRONon 11-14-2021 Iron [Mass/Vol] 34.0 ug/dL Critically low 50.0-170.0 [facility] Comment on above: Performed By: #### U KIM, MG, PHOS #### [facility] [address] [place] [address] Dr. Andrea Mccarthy LIPID PROFILEon 11-14-2021 CHOL-HDL RATIO NORM SEE BELOW Normal [facility] Comment on above: Result Comment: 3.3 - 4.4 LOW RISK 4.4 - 7.1 AVERAGE RISK 7.1 - 11.0 MODERATE RISK >11.0 HIGH RISK Performed By: #### L IPID, TSH, T7, CMP #### [facility] [address] [place] [address] Dr. Andrea Mccarthy Cholesterol [Mass/Vol] 152 mg/dL Normal <=200 [facility] Comment on above: Performed By: #### L IPID, TSH, T7, CMP #### [facility] [address] [address] [address] Andrea Mccarthy Cholesterol in HDL [Mass/Vol] 51 mg/dL Normal 40-60 [facility] Comment on above: Performed By: #### L IPID, TSH, T7, CMP #### [facility] [address] [place] [address] Dr. Andrea Mccarthy Cholesterol in LDL [Mass/Vol] 83.4 mg/dL Normal [facility] Comment on above: Performed By: #### L IPID, TSH, T7, CMP #### [facility] [address] [address] [address] Andrea Mccarthy Cholesterol.total/Ch olesterol in HDL [Mass ratio] 3.0 {ratio} Normal [facility] Comment on above: Performed By: #### L IPID, TSH, T7, CMP #### [facility] [address] [place] [address] Dr. Andrea Mccarthy HDL NORMAL > or = 60 mg/dl - LOW CARDIOVASCULAR RISK <40 mg/dl - HIGH CARDIOVASCULAR RISK Normal [facility] Comment on above: Performed By: #### L IPID, TSH, T7, CMP #### [facility] [address] [address] [address] Andrea Mccarthy LDL CALC NORMAL SEE BELOW Normal [facility] Comment on above: Result Comment: <100 mg/dl OPTIMAL 100 - 129 mg/dl NEAR OR ABOVE OPTIMAL 130 - 159 mg/dl BORDERLINE HIGH 160 - 189 mg/dl HIGH >190 mg/dl VERY HIGH Performed By: #### L IPID, TSH, T7, CMP #### [facility] [address] [address] [address] Andrea Mccarthy Triglyceride [Mass/Vol] 88 mg/dL Normal <=150 [facility] Comment on above: Performed By: #### L IPID, TSH, T7, CMP #### [facility] [address] [address] [address] Andrea Mccarthy VLDL CALC 17.6 mg/dL Normal [facility] Comment on above: Performed By: #### L IPID, TSH, T7, CMP #### [facility] [address] [place] [address] Dr. Andrea Mccarthy MAGNESIUMon 11-14-2021 Magnesium [Mass/Vol] 2.2 mg/dL Normal 1.8-2.4 [facility] Comment on above: Performed By: #### U KIM, MG, PHOS #### [facility] [address] [place] [address] Dr. Andrea Mccarthy PHOSPHORUSon 11-14-2021 Phosphate [Mass/Vol] 3.0 mg/dL Normal 2.6-4.7 [facility] Comment on above: Performed By: #### U KIM, MG, PHOS #### [facility] [address] [place] [address] Dr. Andrea Mccarthy PROF 14(COMP METB)on 022 Albumin [Mass/Vol] 3.2 g/dL Critically low 3.4-5.0 [facility] Comment on above: Performed By: #### L IPID, TSH, T7, CMP #### [facility] [address] [place] [address] Dr. Andrea Mccarthy Albumin/Globulin [Mass ratio] 0.8 {ratio} Normal [facility] Comment on above: Performed By: #### L IPID, TSH, T7, CMP #### [facility] [address] [address] [address] Andrea Mccarthy ALP [Catalytic activity/Vol] 51 U/L Normal 46-116 [facility] Comment on above: Performed By: #### L IPID, TSH, T7, CMP #### [facility] [address] [place] [address] Dr. Andrea Mccarthy ALT [Catalytic activity/Vol] 13 U/L Critically low 14-59 [facility] Comment on above: Performed By: #### L IPID, TSH, T7, CMP #### [facility] [address] [place] [address] Dr. Andrea Mccarthy Anion gap [Moles/Vol] 11.4 mmol/L Normal [facility] Comment on above: Performed By: #### L IPID, TSH, T7, CMP #### [facility] [address] [place] [address] Dr. Andrea Mccarthy AST [Catalytic activity/Vol] 9 U/L Critically low 15-37 [facility] Comment on above: Performed By: #### L IPID, TSH, T7, CMP #### [facility] [address] [place] [address] Dr. Andrea Mccarthy Bilirubin [Mass/Vol] 0.3 mg/dL Normal 0.2-1.0 [facility] Comment on above: Performed By: #### L IPID, TSH, T7, CMP #### [facility] [address] [place] [address] Dr. Andrea Mccarthy Calcium [Mass/Vol] 8.4 mg/dL Critically low 8.5-10.1 Th [facility] Comment on above: Performed By: #### L IPID, TSH, T7, CMP #### [facility] [address] [place] [address] Dr. Andrea Mccarthy Chloride [Moles/Vol] 105 mmol/L Normal 98-107 [facility] Comment on above: Performed By: #### L IPID, TSH, T7, CMP #### [facility] [address] [place] [address] Dr. Andrea Mccarthy CO2 [Moles/Vol] 27.7 mmol/L Normal 21.0-32.0 [facility] Comment on above: Performed By: #### L IPID, TSH, T7, CMP #### [facility] [address] [address] [address] Andrea Mccarthy Creatinine [Mass/Vol] 1.31 mg/dL Critically high 0.55-1.02 [facility] Comment on above: Performed By: #### L IPID, TSH, T7, CMP #### [facility] [address] [place] [address] Dr. Andrea Mccarthy EGFR-AF WALLISIAN 49 mL/min/1.73m2 Critically low >=60 [facility] Comment on above: Performed By: #### L IPID, TSH, T7, CMP #### [facility] [address] [place] [address] Dr. Andrea Mccarthy EGFR-NON AF WALLISIAN 40 mL/min/1.73m2 Critically low >=60 [facility] Comment on above: Performed By: #### L IPID, TSH, T7, CMP #### [facility] [address] [place] [address] Dr. Andrea Mccarthy Globulin (S) [Mass/Vol] 3.9 g/dL Normal [facility] Comment on above: Performed By: #### L IPID, TSH, T7, CMP #### [facility] [address] [place] [address] Dr. Andrea Mccarthy Glucose [Mass/Vol] 97 mg/dL Normal 74-106 [facility] Comment on above: Performed By: #### L IPID, TSH, T7, CMP #### [facility] [address] [place] [address] Dr. Andrea Mccarthy Potassium [Moles/Vol] 4.1 mmol/L Normal 3.5-5.1 [facility] Comment on above: Performed By: #### L IPID, TSH, T7, CMP #### [facility] [address] [place] [address] Dr. Andrea Mccarthy Protein [Mass/Vol] 7.1 g/dL Normal 6.4-8.2 [facility] Comment on above: Performed By: #### L IPID, TSH, T7, CMP #### [facility] [address] [address] [address] Andrea Mccarthy Sodium [Moles/Vol] 140 mmol/L Normal 136-145 [facility] Comment on above: Performed By: #### L IPID, TSH, T7, CMP #### [facility] [address] [address] [address] Andrea Mccarthy Urea nitrogen [Mass/Vol] 23.0 mg/dL Critically high 7.0-18.0 [facility] Comment on above: Performed By: #### L IPID, TSH, T7, CMP #### [facility] [address] [place] [address] Dr. Andrea Mccarhty Urea nitrogen/Creatinine [Mass ratio] 17.6 mg/mg Normal [facility] Comment on above: Performed By: #### L IPID, TSH, T7, CMP #### [facility] [address] [place] [address] Dr. Andrea Mccarthy TSHon 11-14-2021 TSH 0.032 uIU/mL Critically low 0.358-3.740 [facility] Comment on above: Performed By: #### U KIM, MG, PHOS #### [facility] [address] [place] [address] Dr. Andrea Mccarthy UA RANDOM W/MICROSCOPICon BACTERIA NONE SEEN Normal NONE SEEN [facility] Comment on above: Performed By: #### U KIM, MG, PHOS #### [facility] [address] [place] [address] Dr. Andrea Mccarthy Bilirubin Ql (U) Negative Normal NEGATIVE [facility] Comment on above: Performed By: #### U KIM, MG, PHOS #### [facility] [address] [place] [address] Dr. Andrea Mccarthy CAST NONE SEEN Normal NONE SEEN [facility] Comment on above: Performed By: #### U KIM, MG, PHOS #### [facility] [address] [place] [address] Dr. Andrea Mccarthy Clarity (U) CLEAR Normal CLEAR [facility] Comment on above: Performed By: #### U KIM, MG, PHOS #### [facility] [address] [place] [address] Dr. Andrea Mccarthy Color (U) YELLOW Normal YELLOW [facility] Comment on above: Performed By: #### U KIM, MG, PHOS #### [facility] [address] [place] [address] Dr. Andrea Mccarthy Crystals LM Nom (Urine sed) NONE SEEN Normal NONE SEEN [facility] Comment on above: Performed By: #### U KIM, MG, PHOS #### [facility] [address] [place] [address] Dr. Andrea Mccarthy Epithelial cells LM Ql (Urine sed) FEW Abnormal NONE SEEN /RARE [facility] Comment on above: Performed By: #### U KIM, MG, PHOS #### [facility] [address] [place] [address] Dr. Andrea Mccarthy Glucose Ql (U) Negative Normal NEGATIVE [facility] Comment on above: Performed By: #### U KIM, MG, PHOS #### [facility] [address] [place] [address] Dr. Andrea Mccarthy Hemoglobin Ql (U) TRACE-INTACT Abnormal NEGATIVE [facility] Comment on above: Performed By: #### U KIM, MG, PHOS #### [facility] [address] [place] [address] Dr. Andrea Mccarthy Ketones Ql (U) Negative Normal NEGATIVE [facility] Comment on above: Performed By: #### U KIM, MG, PHOS #### [facility] [address] [place] [address] Dr. Andrea Mccarthy LEUKOCYTES Negative Normal NEGATIVE [facility] Comment on above: Performed By: #### U KIM, MG, PHOS #### [facility] [address] [place] [address] Dr. Andrea Mccarthy MUCOUS SMALL Abnormal NONE SEEN [facility] Comment on above: Performed By: #### U KIM, MG, PHOS #### [facility] [address] [address] [address] Andrea Mccarthy Nitrite Ql (U) Negative Normal NEGATIVE [facility] Comment on above: Performed By: #### U KIM, MG, PHOS #### [facility] [address] [address] [address] Andrea Mccarthy pH (U) 5.5 [pH] Normal 5-9 [facility] Comment on above: Performed By: #### U KIM, MG, PHOS #### [facility] [address] [address] [address] Andrea Mccarthy RBC 0-2 Normal 0-2 [facility] Comment on above: Performed By: #### U KIM, MG, PHOS #### [facility] [address] [place] [address] Dr. Andrea Mccarthy SPEC GRAVITY 1.020 Normal 1.005-<=1.025 [facility] Comment on above: Performed By: #### U KIM, MG, PHOS #### [facility] [address] [address] [address] Andrea Mccarthy UA PROTEIN Negative Normal NEGATIVE/ TRACE [facility] Comment on above: Performed By: #### U KIM, MG, PHOS #### [facility] [address] [place] [address] Dr. Andrea Mccarthy Urobilinogen Qn (U) 0.2 {Mikel'U}/dL Normal 0.2 - 1. 0 [facility] Comment on above: Performed By: #### U KIM, MG, PHOS #### [facility] [address] [place] [address] Dr. Andrea Mccarthy WBC NONE SEEN Normal NONE SEEN [facility] Comment on above: Performed By: #### U KIM, MG, PHOS #### [facility] [address] [place] [address] Dr. Andrea Mccarthy URIC ACID SERUMon 11-14-2021 Urate [Mass/Vol] 5.0 mg/dL Normal 2.6-6.0 [facility] Comment on above: Performed By: #### U KIM, MG, PHOS #### [facility] [address] [address] [address] Andrea Mccarthy URINE T PROTEIN CREAT RATIOo n 11-14-2021 Protein (U) [Mass/Vol] 22.3 mg/dL Critically high <=12.0 [facility] Comment on above: Performed By: #### U KIM, MG, PHOS #### [facility] [address] [address] [address] Andrea Mccarthy UR PROT CREAT RAT 0.15 Normal [facility] Comment on above: Performed By: #### U KIM, MG, PHOS #### [facility] [address] [address] [address] Andrea Mccarthy URINE CREAT 151.50 mg/dL Normal 20.00-300.00 [facility] Comment on above: Performed By: #### U KIM, MG, PHOS #### [facility] [address] [place] [address] Dr. Andrea Mccarthy Vital Signs Date Time Vital Sign Value Performing Clinician Facility 05-21-2023 10:40-0500 Body height 162.56 cm Audie Dionne Other [facility] Other 05-21-2023 10:40-0500 Body mass index (BMI) [Ratio] 29.59 kg/m2 Audie Dionne Other [facility] Other 05-21-2023 10:40-0500 Body temperature 96.3 [degF] Audie Dionne Other [facility] Other 05-21-2023 10:40-0500 Body weight 78.2 kg Audie Dionne Other [facility] Other 05-21-2023 10:40-0500 Diastolic blood pressure 80 mm[Hg] Audie Dionne Other [facility] Other 05-21-2023 10:40-0500 Respiratory rate 18 /min Audie Dionne Other [facility] Other 05-21-2023 10:40-0500 SaO2% (BldA) [Mass fraction] 98 % Audie Dionne Other [facility] Other 05-21-2023 10:40-0500 Systolic blood pressure 118 mm[Hg] Audie Dionne Other [facility] Other 11-19-2022 11:00-0400 Body height 162.56 cm Audie Dionne Other [facility] Other 11-19-2022 11:00-0400 Body mass index (BMI) [Ratio] 28.9 kg/m2 Audie Dionne Other [facility] Other 11-19-2022 11:00-0400 Body temperature 96 [degF] Audie Dionne Other [facility] Other 11-19-2022 11:00-0400 Body weight 76.39 kg Audie Dionne Other [facility] Other 11-19-2022 11:00-0400 Diastolic blood pressure 81 mm[Hg] Audie Dionne Other [facility] Other 11-19-2022 11:00-0400 Respiratory rate 18 /min Audie Dionne Other [facility] Other 11-19-2022 11:00-0400 SaO2% (BldA) [Mass fraction] 98 % Audie Dionne Other [facility] Other 11-19-2022 11:00-0400 Systolic blood pressure 132 mm[Hg] Audie Doinne Other [facility] Other 07-02-2022 14:17-0400 Blood Pressure Location Iván TOMLIN [facility] 07-02-2022 14:17-0400 Diastolic blood pressure 88 mm[Hg] Iván TOMLIN [facility] 07-02-2022 14:17-0400 Heart rate 71 /min Iván TOMLIN [facility] 07-02-2022 14:17-0400 Systolic blood pressure 128 mm[Hg] Iván TOMLIN [facility] 05-29-2022 10:40-0500 Body height 162.56 cm Audie Dionne Other [facility] Other 05-29-2022 10:40-0500 Body mass index (BMI) [Ratio] 28.22 kg/m2 Audie Dionne Other [facility] Other 05-29-2022 10:40-0500 Body temperature 96.3 [degF] Audie Dionne Other [facility] Other 05-29-2022 10:40-0500 Body weight 74.57 kg Audie Dionne Other [facility] Other 05-29-2022 10:40-0500 Diastolic blood pressure 81 mm[Hg] Audie Dionne Other [facility] Other 05-29-2022 10:40-0500 Respiratory rate 18 /min Audie Dionne Other [facility] Other 05-29-2022 10:40-0500 SaO2% (BldA) [Mass fraction] 98 % Audie Dionne Other [facility] Other 05-29-2022 10:40-0500 Systolic blood pressure 125 mm[Hg] Audie Dionne Other [facility] Other 11-21-2021 12:40-0400 Body height 162.56 cm Audie Dionne Other [facility] Other 11-21-2021 12:40-0400 Body mass index (BMI) [Ratio] 28.22 kg/m2 Audie Dionne Other [facility] Other 11-21-2021 12:40-0400 Body temperature 96.8 [degF] Audie Dionne Other [facility] Other 11-21-2021 12:40-0400 Body weight 74.57 kg Audie Dionne Other [facility] Other 11-21-2021 12:40-0400 Diastolic blood pressure 79 mm[Hg] Audie Dionne Other [facility] Other 11-21-2021 12:40-0400 Respiratory rate 18 /min Audie Dionne Other [facility] Other 11-21-2021 12:40-0400 SaO2% (BldA) [Mass fraction] 98 % Audie Dionne Other [facility] Other 11-21-2021 12:40-0400 Systolic blood pressure 117 mm[Hg] Audie Dionne Other [facility] Other 06-01-2021 16:20-0500 Body height 162.56 cm Audie Dionne Other [facility] Other 06-01-2021 16:20-0500 Body mass index (BMI) [Ratio] 30.89 kg/m2 Audie Dionne Other [facility] Other 06-01-2021 16:20-0500 Body temperature 96.5 [degF] Audie Dionne Other [facility] Other 06-01-2021 16:20-0500 Body weight 81.65 kg Audie Dionne Other [facility] Other 06-01-2021 16:20-0500 Diastolic blood pressure 80 mm[Hg] Audie Dionne Other [facility] Other 06-01-2021 16:20-0500 Respiratory rate 18 /min Audie Dionne Other [facility] Other 06-01-2021 16:20-0500 SaO2% (BldA) [Mass fraction] 98 % Audie Dionne Other [facility] Other 06-01-2021 16:20-0500 Systolic blood pressure 119 mm[Hg] Audie Dionne Other [facility] Other 03-27-2021 16:20-0500 Body height 162.56 cm Audie Dionne Other [facility] Other 03-27-2021 16:20-0500 Body mass index (BMI) [Ratio] 31.55 kg/m2 Audie Dionne Other [facility] Other 03-27-2021 16:20-0500 Body temperature 96.5 [degF] Audie Dionne Other [facility] Other 03-27-2021 16:20-0500 Body weight 83.37 kg Audie Dionne Other [facility] Other 03-27-2021 16:20-0500 Diastolic blood pressure 80 mm[Hg] Audie Dionne Other [facility] Other 03-27-2021 16:20-0500 Respiratory rate 18 /min Audie Dionne Other [facility] Other 03-27-2021 16:20-0500 SaO2% (BldA) [Mass fraction] 99 % Audie Dionne Other [facility] Other 03-27-2021 16:20-0500 Systolic blood pressure 119 mm[Hg] Audie Dionne Other [facility] Other Encounters Encounter Date Encounter Type Care Provider Facility Start: 05-21-2023 End: 05-21-2023 ambulatory Audie Dionne Other [facility] Other Start: 05-21-2023 Office outpatient vi sit 25 minutes Audie Dionne [facility] Start: 11-19-2022 End: 11-19-2022 ambulatory Audie Dionne Other [facility] Other Start: 11-19-2022 Office outpatient vi sit 15 minutes Audie Dionne [facility] Start: 09-06-2022 ambulatory DAYANA LOPEZ Facility: Start: 07-17-2022 End: 07-18-2022 ambulatory Iván TOMLIN [facility] Start: 07-17-2022 End: 07-17-2022 Patient encounter procedure Iván TOMLIN [facility] Start: 07-07-2022 End: 07-08-[address] IVÁN TOMLIN . Facility: Start: 07-02-2022 End: 07-03-2022 ambulatory MD AUDIE TRUONG Facility: [facility] Start: 07-02-2022 End: 07-02-2022 Patient encounter procedure vIán TOMLIN [facility] Start: 05-31-2022 ambulatory MD PANTOJA DIONNE Facility :[facility] Start: 05-29-2022 End: 05-29-2022 ambulatory Audie Dionne Other [facility] Other Start: 05-29-2022 Office outpatient vi sit 25 minutes Audie Dionne [facility] Start: 05-21-2022 End: 05-22-2022 ambulatory DAYANA LOPEZ Facility:[facility] Start: 12-30-2021 End: 12-31-2021 ambulatory DAYANA LOPEZ Facility:[facility] Start: 11-21-2021 End: 11-21-2021 ambulatory Audie Dionne Other [facility] Other Start: 11-21-2021 Office outpatient vi sit 25 minutes Audie Dionne [facility] Start: 11-14-2021 End: 11-15-2021 ambulatory AUDIE DIONNE Facility:[facility] Start: 06-02-2021 End: 06-02-2021 ambulatory Audie Dionne Other [facility] Other Start: 06-02-2021 Telephone encounter Audie Dionne [facility] Start: 06-01-2021 End: 06-01-2021 ambulatory Audie Dionne Other [facility] Other Start: 06-01-2021 Office outpatient vi sit 25 minutes Audie Dionne [facility] Start: 03-27-2021 End: 03-27-2021 ambulatory Audie Dionne Other [facility] Other Start: 03-27-2021 Office outpatient ne w 45 minutes Audie Dionne [facility] Procedures Date Procedure Procedure Detail Performing Clinician Start: 01-08-2019 Esophagogastroduodenoscopy Iván TOMLIN Abdominal hysterectomy Clarence TOMLIN Appendectomy Ivánalejandro TOMLIN Colonoscopy Ivánalejandro TOMLIN Payers Date Payer Category Payer Private Health Insurance [id number] 1950 Unknown [id number] 2.16.8 [id number] 1950 Unknown [id number] 2.16.8 [id number] 1950 Unknown [id number] 2.16.84 [id number] 1950 Unknown [id number] 2.16.84 [id number] 1950 Unknown [id number] 2.16.84 [id number] 1950 Unknown [id number] 2.16.84 [id number] 1950 Unknown [id number] 2.16.84 [id number] 1950 Unknown [id number] 2.16.84 [id number] Self-pay Self Pay [id number] Unknown Self Pay [id number] Social History Date Type Detail Facility Tobacco smoking stat us CTIS Unknown if ever smoked [facility] Start: 1950 Sex Assigned At Female F [facility] Sex Assigned At [facility] Start: 07-02-2022 Tobacco smoking status Never s moked tobacco (finding) [facility] Tobacco smoking status Never [facility] Goals Date Patient Goal Desired Activity /State Functional Status Date Assessment Result Facility 07-02-2022 Functional Status N/A [facility] Clinical Notes 03-27-2021 to 05-21-2023 Note [...] stain. Monitor LFTs and lipid profile periodically. [facility] Other 07-31-2023 Evaluation note* Encounter Date Diagnosis [...] advised to have repeat in 5 yrs [facility] Other 03-28-2023 Note [id number]:127[facility] 07-17-2022 Hospital Discharge instructions Patient Education 07/17/2022 [...] Urology [address] [place] [address]- Business (1) When: Unknown Comments:Call for any problems. [facility]03-28-2023 NoteCustom Cystoscopy ? Voiding after the procedure: [...] if you have a fever over 100 degrees.[facility] 07-02-2022 NoteChief Complaint Pt here for referral [...] With When Contact Information Iván TOMLIN MD, [facility] [address], [place] [address]- Additional Instructions: schedule cysto, CHRIS Patient Education [...] tab(s), Oral, q6hr fluticasone 0.05 mg/inh Nasal Badger, 2 spray(s), Nasal, Daily (more content not included)...[facility]Result Comment: Electronically Signed By: Iván TOMLIN MD\.br\Date and Time Signed: 07/02/22 14:52 EDT\.br\Electronically Co-Signed By: Moira Estrada.br\Date and Time Co-Signed: 07/02/22 14:50 [id number] Hospital Discharge instructions Patient Education 07/02/2022 14:22:27 [...] Follow these instructions at home: Medicines Take swtx-xbd-azgemck and prescription medicines only as told by [...] or the blood stops without treatment. Take mftb-ixy-heilhtd and prescription medicines only as told by your health care provider. Drink enough fluid to keep your urine clear or pale yellow. This information is not intended to replace advice given to you by your health care provider. Make sure you discuss any questions you have with your health care provider. Document Released: 04/08/2006 Document Revised: 09/02/2019 Document Reviewed: 05/11/2017 [employer] Patient Education 2019 [employer]. Follow Up Care 05/31/2022 13:31:32 With:KELLY BLACKMON, Iván Hsu, URL Address: [facility] [address] [place] [address]- When: Unknown [facility] 02-07-2023 Evaluation note* Encounter Date Diagnosis [...] advised to have repeat in 5 yrs [facility] Other 08-02-2022 Evaluation note* Encounter Date Diagnosis [...] stain. Monitor LFTs and lipid profile periodically. [facility] Other 02-10-2022 Evaluation note* Encounter Date Diagnosis [...] stain. Monitor LFTs and lipid profile periodically. [facility] Other 12-06-2021 Evaluation note* Encounter Date Diagnosis [...] PCP. Mar, Dyslipidemia (ICD-10 - E78.5) Continue [facility]. Monitor LFTs and lipid profile periodically. [facility] Other Evaluation + Plan note Future Appointments Appointment Date:07/10/2022 11:30:00 AM Scheduled Provider: Location:[facility] Appointment Type:Urology CALL PAT FT Appointment Date:07/17/2022 08:45:00 AM Scheduled Provider: Location:[facility] Appointment Type:Urology FT Diagnostic Tests Pending * Urine Cytology ([facility]) 07/02/22 [facility] noteNo Assessments Information Available [facility] CtrEvaluation noteNo InformationNort [employer] Other Hisrjin general Narrative - Reported* Type Description Date Medical History HTN Medical History Hypothyroidism Medical History hyperlipidemia Medical History acid reflux Medical History anxiety Medical History PRE DIABETIC Medical History mixed hypercholestolemia Medical History CKD STAGE 3 Medical History INSOMNIA Surgical History hysterectomy, total with BSO Surgical History fallopian tube removed Hospitalization History see above hx Hospitalization History N&V [facility] Other Hisnluo general Narrative - Reported* Type Description Date [...] History see above hx Hospitalization History N&V [facility] Other Hospital course Narrative No data available for this section [facility] progress note No data available for this section [facility] Summary Purpose Family History No Family History [...] Personnel Name: DAYANA PEPPER CNPSampson Address: Address: [facility] [facility], [place] [address]- Personnel Name: DAYANA PEPPER CNP Address: Address: [facility] [address] [facility], [place] [address]- [place] INFORMATION SOURCE (unrecogn ized section and content) DATE CREATED AUTHOR 07/24/2022 [facility] DATE CREATED AUTHOR AUTHOR'S ORGANIZ ATION 09/05/2022 [facility] pital FOR RECORDS PERTAINING TO PATIENTS [...] BE BASED ON THE PRIMARY CLINICAL RECORDS. [facility] [employer] provides no warranty or guarantee of the accuracy or completeness of information in this document.
[2023-08-06 12:33] LABS: Alanine Aminotransferase 15 U/L (14-59); Albumin Globulin Ratio 0.6; Albumin Level 3.1 g/dL (3.4-5.0); Alkaline Phosphatase 67 U/L (46-116); Anion Gap 15.4; Aspartate Amino Transferase 16 U/L (15-37); BUN Creatinine Ratio 13.6; Bilirubin Total 0.3 mg/dL (0.2-1.0); Calcium 8.9 mg/dL (8.5-10.1); Carbon Dioxide 24.7 mmol/L (21.0-32.0); Chloride 104 mmol/L (98-107); Estimated GFR (African America 45 (>=60); Estimated GFR (Non-African Ame 37 (>=60); Globulin 4.8 g/dL; Glucose 126 mg/dL (74-106); Potassium 4.1 mmol/L (3.5-5.1); Sodium 140 mmol/L (136-145); Total Protein 7.9 g/dL (6.4-8.2)
== END 2023-08-06 11:22 | disposition home or self-care (01) ==
LOC: LAB 11:23
PROVIDERS: PCP Nurse Practitioner Family; Visit Provider Nurse Practitioner Family
DX: N18.9 Chronic kidney disease, unspecified (principal)
CPT/HCPCS: 36415; 80053

== ENCOUNTER 2023-08-20 09:49 | Outpatient (OUT) | payer MEDICARE, SELFPAY ==
--- NOTE | 2023-08-20 09:51 | XR_ITS ---
[address] [address] Patient Name: KAREEN HADLEY MRN: [id number] date: 1950 Sex: F Assigned Patient Location: [facility] Current Patient Location: [facility] Accession/Order Number: [id number] Exam Date: 08/20/2023 10:05 Report Date: 08/20/2023 10:50 At the request of: DAYANA LOPEZ Procedure: XR DEXA axial skeleton EXAMINATION: XR DEXA axial skeleton, 08/20/2023 10:05 AM EDT HISTORY: Osteoporosis M81.0 COMPARISON: 2017. TECHNIQUE: Dual-energy X-ray absorptiometry (DEXA) bone density study performed for the axial skeleton. HISTORY: Osteoporosis M81.0 FINDINGS: Bone mineral density AP spine L2-L4 measures 1.078 g/sq cm. T score -1.0. WHO classification: Normal. The patient's lowest bone mineral density left femoral neck measuring 0.693 g/sq cm. T score -2.5. WHO classification: Osteoporosis XR/XR DEXA axial skeleton IMPRESSION: Osteoporosis. High fracture risk Electronically authenticated by: DANIELLE GARLAND Date: 08/20/2023 10:50
== END 2023-08-20 09:50 | disposition home or self-care (01) ==
LOC: RAD 09:49
PROVIDERS: PCP Nurse Practitioner Family; Visit Provider Nurse Practitioner Family
DX: M81.0 Age-related osteoporosis without current pathological fracture (principal)
CPT/HCPCS: 77080

== ENCOUNTER 2023-11-07 07:39 | Outpatient (OUT) | payer MEDICARE, SELFPAY ==
--- OUTSIDE RECORDS SUMMARY | 2023-11-07 07:45 | XMS_ITS | CCD ---
Author Organization [facility] CliniSyvt Care Team Providers Care Binder And Box Builder Name Role Phone Audie Truong Unavailable DAYANA PEPPER Primary Care Physician [phone] MD AUDIE TRUONG Referring Unavailable Iván TOMLIN Attending Unavailable KELLY, Iván Hsu Referring Unavailable Iván TOMLIN Attending Unavailable Iván TOMLIN Admitting Unavailable JOHN, DAYANA Attending Unavailable JOHN, DAYANA Admitting Unavailable JOHN, DAYANA Primary Care Unavailable JOHN, DAYANA Consulting Unavailable JOHN, DAYANA Attending Unavailable JOHN, DAYANA [...] Medication Allergies] Propensity to adverse reactions (disorder) [facility] Repository Medications Current Medications Medication Drug Class(es) Dates Sig (Normalized) Sig (Original) alendronic acid 70 mg oral tablet (8 sources) Bisphosphonate Start: 10-19-2023 take 70 mg by mouth every week Alendronate Active 70 MG PO every week October 19, 2023 12:00am take 1 tablet by mouth every wee k Alendronate Sodium 70 MG 1 Tablet orally weekly Active aspirin 81 mg oral tablet (2 sources) Platelet Aggregation Inhibitor, Nonsteroidal Anti-inflammatory Drug Start: 01-01-2019 take 1 tablet by mouth once daily aspirin 81 mg oral tablet 81 mg = 1 tab(s), Oral, Daily Start Date: 01/01/19 Status: Ordered 24 hr buPROPion hydrochloride 300 mg extended release oral tablet (8 sources) Aminoketone Start: 10-19-2023 take 300 mg by mouth once daily Bupropion Hcl Active 300 MG PO Daily October 19, 2023 12:00am take 1 tablet by lester th every twenty-four hours buPROPion HCl ER (XL) 300 MG 1 tablet in the morning Orally Once a day Active calcium carbonate 1500 mg oral tablet (1 source) Start: 10-19-2023 Calcium Carbonate (Calcium 600) 600 mg calcium (1,500 mg) tablet Active 1200 MG PO Daily October 19, 2023 12:00am cetirizine hydrochloride 10 mg oral tablet (4 sources) Histamine-1 Receptor Antagonist take 1 tablet by mouth every twenty-four hours Cetirizine HCl 10 MG 1 tablet Orally Once a day Active cholecalciferol 0.05 mg oral capsule (1 source) Vitamin D Start: 10-19-2023 take 50 ug by mouth once daily Cholecalciferol (Vitamin D3) Active 50 MCG PO Daily October 19, 2023 12:00am dicyclomine hydrochloride 20 mg oral tablet (2 [...] a day Active fluticasone 0.05 mg/inh Nasal Howells (2 sources) Start: 01-01-2019 take 2 spray(s) nasal route once daily fluticasone 0.05 mg/inh Nasal Howells 2 spray(s), Nasal, Daily, each nostril Start Date: 01/01/19 Status: Ordered Grape Seed Complex - (3 sources) take 300 mg by mouth once daily Grape Seed Complex - 300mg Orally daily Active Hydrochlorothiazide-25 mg 25 MG (3 sources) take 1 tablet by mouth once daily in the morning Hydrochlorothiazide-2 5 mg 25 MG 1 tablet in the [...] Refill(s) 0 Start Date: 07/02/22 Status: Ordered levothyroxine sodium 0.15 mg oral tablet (10 sources) l-Thyrox ine Start: 10-19-2023 take 150 ug by mouth once daily Levothyroxine Active 150 MCG PO Daily October 19, 2023 12:00am Start: 01-01-2019 take 1 capsule by mo [facility] once daily levothyroxine 125 mcg (0.125 mg) oral capsule 125 microgram = 1 cap(s), Oral, Daily Start Date: 01/01/19 Status: Ordered take 1 tablet by lester every twenty-four hours Levothyroxine Sodium 150 MCG 1 Tablet orally daily Active take 1 tablet by lester th every twenty-four hours Levothyroxine Sodium 150 MCG 1 Tablet orally daily Active take 1 tablet by lester th every twenty-four hours Levothyroxine Sodium 125 MCG 1 Tablet orally daily Active losartan potassium 100 mg oral tablet (10 sources) Angiotensin 2 Receptor Reinier Start: 10-19-2023 take 100 mg by mouth once daily Losartan Active 100 MG PO Daily October 19, 2023 12:00am Start: 01-01-2019 take 1 tablet by mouth once da tc losartan 100 mg Tab 100 mg = 1 tab(s), Oral, Daily Start Date: 01/01/19 Status: Ordered lovastatin 40 mg oral tablet (10 sources) HMG-CoA Reductase Inhibitor Start: 10-19-2023 take 40 mg by mouth once daily Lovastatin Active 40 MG PO Daily October 19, 2023 12:00am Start: 01-01-2019 take 1 tablet by lester th once daily lovastatin 40 mg Tab 40 mg = 1 tab(s), Oral, Daily Start Date: 01/01/19 Status: Ordered methylsulfonylmethane 500 mg oral capsule (1 source) take 1 capsule by mouth every twenty-four hours MSM 500 MG 1 Capsule Orally daily Active metoprolol tartrate 25 mg oral tablet (2 sources) beta-Adrenergic Reinier Start: 2018 take 1 tablet by mouth twice daily Metoprolol tartrate 25 mg Tab 25 mg = 1 tab(s), Oral, BID Start Date: 01/01/19 Status: Ordered montelukast 10 mg oral tablet (10 sources) Leukotriene Receptor Antagonist Start: 2023 take 1 tablet by mouth once daily Montelukast Active 1 TAB PO Daily October 19, 2023 12:00am FreeTextSi Tablet orally daily; Note: Source Status: Taking; Provider: Dionne Bronson ( ) Start: 01-01-2019 take 1 tablet by lester th once daily in the evening montelukast 10 [...] omeprazole 40 mg delayed release oral capsule (8 sources) Proton Pump Inhibitor Start: take 40 mg by mouth once daily Omeprazole Active 40 MG PO Daily October 19, 2023 12:00am take 1 capsule by mo uth every twenty-four hours Omeprazole 40 MG 1 [...] Active raloxifene hydrochloride 60 mg oral tablet (8 sources) Estrogen Agonist/Antagonis t Start: 10-19-2023 take 60 mg by mouth once daily Raloxifene Active 60 MG PO Daily October 19, 2023 12:00am take 1 tablet by lester th every twenty-four hours Raloxifene HCl 60 MG [...] procedure, # 2 tab(s), Refills(s) 0, Pharmacy: [facility]/pharmacy #[id number], 162, cm, 07/02/22 14:24:00 EDT, Height/Length Dosing, 74, kg, 07/02/22 14:24:00 EDT, W... Start Date: 07/02/22 Status: Ordered Problems Active Problems Problem Classification Problem Date [...] Range Facility Coding Summary.on 07-19-2022 Coding Summary. CD:[id number] Ww+PGhlYWQ+FS5EUTFzK 35vsPPzkE5mR9HUCDqLA ywgQVBQTElOSyIgbmFtZ J6jjACuLPZm IC8+GU8jJOCgSnhfbNWd u7V2tZK1K12wjt1sNEtj tFU4WYRaAlAtajiax2jx mXt4LWfeGqsmCwAb ADKymO33BEP8iR90Yz38 xMJtcGHkv1riuKn7BqEt MCCiFLY6mWikYBtjq0Su JLTkR44svYZzk7R7 IGNvbGxhcHNlOyBlbXB0 rY8rZEyacottq6jsmaji Kki2ub47wZJuw3A7yQZ7 J0KzakR5OCOhtPFw QwcwsYPDqS6kmqtax2ls meeyWaXwZEKyAEb3JQo2 YWHvvBshTgVjDI33RRF6 UROqyjJhJ1RrVGFz fBktQuJ4w6A9Jg8IH6LQ HkecB0DQVKZQLThluPC+ HE60gr69H7MeRyeqFyr9 ECOwZGA1tNS5lL2x SGNfOXlvy2G5lPU3J3Ye meFvii3us6exSQIeSSpx A57wrORuu0U2VHSmtAW4 PUMcdSfvAnLedZ18 Oyc+VPKgfHydz8IeKzos s0iup4hjfPt3StkpBNSv bkNfjWaeAJO3h0SqVd4z YWAglOT5oWA2kM2a XvRgJaR7UDfzJ150GeNj rOCqXvxvO11wD8XycJO+ TLKkKnf3EGOosGwpRG2u Q4MvMFRiwgqjzUQm sKrrLY5jQVCvwlmjFEVw jP7zVUSuS8j1TbLxIsT9 ZPbmM2ThMVVvmoesLz13 aL1dHvDxEnM7KFps X9KribY3EAJpmHOnPRai MJM1D76sg4X0LBZjTNVm UII0vKK2fU6sxDbocmyc bGVmdDsgdmVydGlj AStbTHtuG779TNVukMku PkNvZGluZyBEYXRlOiAg MDMvMzAvMjAyMzwvdGQ+ BGJrBZG9tYzxGHBz cSFxHBtrUq6rfYcdnGgm NE4fQMOcqrwtDFEcjE5l GENhiCRxwZsmDC6vMUIv qvgqb100GbAdIXN0 INNhcUBiG1SpwT4bIpBe PRScZQMyI7QesIReDUow J719YSioNfS7SSOxzvDy F0HhYVLmmVnyVoV2 g7K5Zm0Bi2LcvkdeF5Iy rYCqNlEhSrumWYs6D8Ei PjwvdHI+GM97DWEiQS49 DDf3JJF5vOtxBMft CABlD5OmpL9oHpXpLIHg ZGRkOyc+PHRhYmxlIHdp ZHRoPScxMDAlJyBzdHls JI7cPb3tELEnPRIf tZmgqCPgQlPws1zaSJEh OFdbHG8zfHzrC3KpuWS1 SSSnb0q1Wg16Q12uJ2Qc dXA+GIHimYL9lNT9 jH3dLkAzWyC8EIlfZ187 GsObdTQqMbjju9lng2sg tXg4JlF6KMTiskUomCws SXS7c7SkWr83J25k IHdpZHRoPSIxNSUiIHZh tJrcoq6flI2xXa0+PGNv kDD6cMT0qT6fPtKxLwH1 MAytC228FdDwfVWr Dbrsz3mjk1lkmWg5TpMw AKEwlfVjrAnuWYQ8y6Cg Df48X2QpaHuqe9VsQav5 pz74rIRfg5B6bFF3 D6KjEWPrbxneiJWowXeh JL2jAABckebsYAIuoE1h OVEwV4z2OsAiFvE9AJxt O1QfalU1FMPbdTWy AFTzhRIZyM2knxllw5mq jmevBiRkCACaSXq1ZIn8 QHXrrHbbNqXhWEI9NxT4 UBY6hNDmxI0srLaf jditnQ4uRmm+CUT0hRYi sELDNC5pGfusrCL+PHRk BSA6hCcmKHhgAXUolW6f GPUhI2m4GjKaWcP4 XVpjY8JpdjB8EAWkoKUo LCCvuTBGrK2mbpymk8rg mcthGbIbFSCnNVm2GSj3 LWFsaWduOiBsZWZ0 AkZ2BLC3oDDnfQ3jpSmx qksujN9jOxf+QmlydGgg VXV2NIg3Y5EoZge8QFDc wZniFN1xiJMcBWai Wt6ufDbkoPozTK3bINBt gyhdm529LvXff9ufPMXs tSQaPKytPYA5C00az8X8 UXFxRJSxRMT7vCS3 eR8thSjurvjjcUFhkKad zjHpzAfzJWtjQUqhG305 ZDKkaEsxVyPcHZp4D5Da Vis4NNXnwIddGO0o bLZpMQuwXq6tuArefRzg XV0aEUWavnjpm281KdLz t1nxDNVvmEZzPUnuEFO0 D73xr5F9OHYyZKRm IZZ3rYL4xA6tyRyqqput bGVmdDsgdmVydGljYWwt MLgtI815ZSKobMnuQwSd pSj7H5DaHdo1IPJd hNmtEU0vsHIhTGjaXg6c pCaykDjfNW3aXIYbsuop b972YwLmn5okTXLvlOOb WOhxITL0C11yx8N6 ZTMuTUFxEFI8zKL9eF5u bGlnbjogbGVmdDsgdmVy bZuvTPeuMZlkO238AYNv cDsnPlBhdGllbnQg LTdiYTe7R6PnPiqtfST+ WC67JEOoQS02qGDrnXTp w0plzPr9JzUsSXFnYFR0 zQkbOWitr1NlKMLc E33afMFxi6B2JGZwmTuq ePViJeKteKD6gN9rLIex gzdcg6ajncloJtyxf6tw hp95jB86D97sNWkv ZHRoPSIzMCUiIHZhbGln pz4lbV3lYu7+PGNvbCB3 vYY4dS4nKDUkEpV3QDla U848GiOgxNLaHqqb z3bzf4jlbVt9CoR5PDQt ymFuoOxtJYF8w2XaFk61 Z89bMYeaRPDiUNUeOVSh CUQksDgnzt1niU5o Ii8+TTUntMS8vHQ0oQ8n DeBxTfS7YUryV043YgTr tSTyPjimT25qL9ZtmCG+ GCQrHvf5TSPzaHbt HQ6lxDPxAEzwTf5uTMS5 LtEqWhTdSFjtF3WjZDIk seudtcpnsEF9WZLvZNHx cN32Jz7pbGsvHOXr cZNOsV2sjdpgf1juvkda PtHpIPDdPVj1KWj7VVUj fJhxMcWvGGC3KfR0GJI3 eECnvR0hpXzfpyzv hI4oU4CzFEWnwmooLr06 xC9pSmZbMtW8CSsqOls+ A0RGVeXSMBCZXWRGY5SV TkUgQTwvdGQ+PHRk RRK3eTwbFQrbOTCneH1r IYXrP7p1SfRtZrY2GQli P8WjPCOprzvsMv16zP6d GaFeEwG6APomW9Yt biS8FBVogXQeSXaiTXW1 L02wj9B0SMExTGByNEU6 lNO6mX3pvKapiuzvxWVh dDsgdmVydGljYWwt FCmgT357FSGocPypCfZh KrWgKxO0JOK4K9OmOpu7 IHAkiMkhIP4ooYVfYUnu Yz0ceSxmsKccCY1m UWQmotmgLYCvpL3jAMIk zWYgmZbsNH5xFZAfpxxg r969ZgWlKJX6ZATuqMLw C2KlhS1yIzJcVUZv ATTtI8QetZSbKObmD704 ZGenQmZ4TRKgzhZwU5Rr SCOvsXseXqU7e1C9Xd20 MCBZZWFyczwvdGQ+ PHOwBAZ0iRorAMvhLUFe hL0aYGIhD6f6OrBpEbP8 WAulJ1MfSWGlvpbcVc94 nS8eSzBqRwT2AKnk U0ErnpM1ZHDceMJyXMoe HAY2A81bz8L6AIPgBGSo IHW9bGD9eJ6upNpakbeg bGVmdDsgdmVydGlj VTzgSBeuT589DJUdhQnu PkZlbWFsZTwvdGQ+PHRk HZB5pPbxGKbcQWYqaX2y QVAgG2z0EgNfGqM7 FVuzT5PaJVJwojgvJf53 jL1sNlDwUzR9LXntD9Zi rtO9JTBibJVrIEwtJCP3 K65tx2J9PERqRUFi XJN5lNF9aA0thAsqbgmo bGVmdDsgdmVydGljYWwt KUrkT398IXBatTqlPa52 mYNixGhifaY1C6Ql PjwvdHI+DC02QECtWA31 sHKibTHaf2ehkEu2AmWb HMYrXII9jSwkICdij6Aq VYFvK64suTAkp1O1 IGNvbGxhcHNlOyBlbXB0 sY2lMKfnhjemx1eqvnkf Jmsgq0bmyy61aK56L52a IHdpZHRoPSIzMCUi OZHljKckpj2khD3wRb4+ BOInxJE1vMG1yQ9kVvFz ShM5COsuV246UgGopZMv Zsjcj3jug5igyNs3 IjIwJSIgdmFsaWduPSJ0 p4KjEg50X81fOMiyWDSy SYKvROKzDHFxhCxyik0l iV1hTf9+MH5vc9ct dj20fK38dWR+PHRkIHN0 fRwgXMtlTCMddN7hRRfv OnN1NCYqYcKqaL77gFCz YRaaDq8ghWcdeRxo TM4uTLQcxgxtd210JyQo j1uiIJBbeFExDVrmZRQ1 U88ir0Q7OXRoSZDmCSK3 iEH9oN4ofVffvwud bGVmdDsgdmVydGljYWwt SLzwZ932FCUlbKlpStIw tVLpE9ykvpMWRG5sQdxq dGQ+PIAwQIM2nNfd BZbmSIJguX6wEADhW9w4 WvCtViQ1MGayH4PtngY8 TZRxoVIgSENcyJCPoG6w lunjc4pnzjeoFzRe JUNtDNf4UFq2KILteSlo PzBrLMI8KjF6HUH7dIQv qM2kbHndtmezqW0wGwj+ RklOOjwvdGQ+PHRk BMN2fUoaKTunWTMmkC5f DCHsM7m5ZlGjLcY4XDed T1HlwvX5HNBppALcTYJz kRGLnA2yizute8cv svrqCoXcDXLhJFr5EOr3 CQZegVkpKmDgNQV9VvO7 MET6jHPumY1kdSmckubb fW0wStk+TVJOOjwv dGQ+CBNlPOR4tAnqEGza QYPxzG5hERRiZ2g9UvSm RqY1DDobM5JpbkS9MWDm gMFoOPKcoCXSkK1g ruouf4qjdocuThSrMUXj HZx4GYb4QZBisRpgWhKw ANK3QuM5HRX6kNScdA0j mYmumryczL6vVcd+ XAY0PIN9VX87NO42H9Vm PjwvdGFibGU+PHRhYmxl IHdpZHRoPScxMDAlJyBz wCsdZD3dMr7kOLHe LWNvbGxh (more content not included)... Normal [facility] Consent for Procedure/Surger yon 07-17-2022 Consent for Procedure/Surgery [id number] 0#1.00CD:127 Normal [facility] Consent for Treatmenton 06-21 Consent for Treatment [id number] #1.00CD:127 Normal [facility] IntraOperative Documentson 0 07-17-2022 IntraOperative Documents [id number] 2#1.00CD:127 [facility] Main OR Intraoperative Recor don 07-17-2022 Main OR Intraoperative Record IntraOp Document Type FTURO Summary Primary Physician: Iván TOMLIN MD Finalized Date/Time: 07/17/22 09:10:19 Pt. Name: PEG HADLEY/Sex: 1950 Female Med Rec #: [id number] Physician: Iván TOMLIN MD Financial #: [id number] Pt. Type: O Room/Bed: / Admit/Disch: 07/17/22 [...] Palma Ko Role Performed Surgeon - Primary Psychiatric Nurse Practitioner - Primary Scrub - Primary Time In [...] Procedure Yes Primary Surgeon Iván TOMLIN MD 07/17/22 09:05:00 Stop 07/17/22 09:10:00 Anesthesia Type [...] Position Verified Availability Equipment, Medication Time Out KELLY BLACKMON, Iván Hsu, Verified (If Participants KRISTIAN Noe RNOR, Applicable) Lorraine Ko CST, Palma Flynn Time [...] DEDRA Noe RN, Ruthann 07/17/22 09:10 Normal [facility] Main OR Preoperative Recordo n 07-17-2022 Main OR Preoperative Record Holding Area Document Type FTURO Summary Primary Physician: Iván TOMLIN MD Finalized Date/Time: 07/17/22 09:04:54 Pt. Name: PEG HADLEY/Sex: 1950 Female Med Rec #: [id number] Physician: Iván TOMLIN MD Financial #: [id number] Pt. Type: O Room/Bed: / Admit/Disch: 07/17/22 [...] No Pain Comment: na Skin Integrity Intact, Mason Neck, Warm, & Dry Vitals - EU Blood Pressure 135/82 Pulse 65 bpm Respirations 16 br/min SPO2 96 % RN Reviewed Yes Last Modified By: DEDRA Noe RN, Ruthann 07/17/22 09:04:49 General Comments: temp:36.4 Finalized By: Kusum BELL, Stefani COLMENARES Document Signatures Signed By: Anival BIRDMaeve Fernando 07/17/22 08:41 Kusum BELL, Stefani COLMENARES 07/17/22 09:04 Normal [facility] Operative Reporton Operative Report Patient: PEG HADLEY [...] follow-up on a as needed basis.. Normal [facility] Comment on above: Result Comment: Elec tronically Signed By: Iván TOMLIN MD\.br\Date and Time Signed: 07/17/22 09:13 EDT RAD - Ultrasound Reporton RAD - Ultrasound Report [id number] #1.00CD:127 Normal [facility] Urine Cytology ([facility])on 0 07-09-2022 Urine Cytology Diagnosis Info Invalid Interpretation Code [facility] Comment on above: Result Comment: A:Ur ine,Urine:Voided Interpretation - MicroScopic Description - Adequacy - Gross Description Site ID:A color Light Yellow fixative Alcohol Specimen designated Urine received in alcohol preservative and labeled with the patient?s name, consists of 40ml clear light yellow fluid. Electronically signed by : on: 07/09/2022 15:10:50 Performed By: #### 1 [id number] ####[facility] [address] [place] [address] US KIDNEYSon 07-07-2022 US KIDNEYS EXAM: US [...] CAM Date: 2022-07-07 10:33 Normal [facility] Formson 07-03-2022 Forms [id number] #1.00CD:127 Normal [facility] Physician Referralon 023 Physician Referral [id number] #1.00CD:127 Normal [facility] Pre-Certification Formon Pre-Certification Form [id number] 8#1.00CD:127 Normal [facility] Ambulatory Visit Summaryon 0 07-02-2022 Ambulatory Visit Summary PEG HADLEY :1950 Visit Date:07/02/2022 Ambulatory Visit Instructions Your Diagnosis Microscopic hematuria Tests Performed Urnls Dip Stick Auto w/o Microscopy POC 73604 US Renal -- Results Pending -- Please [...] Tab) fluticasone nasal (fluticasone 0.05 mg/inh Nasal Howells) hyoscyamine (hyoscyamine 0.125 mg oral Tab) levothyroxine [...] Following Appointments Follow Up with KELLY BLACKMON, Iván Hsu, URL When: Where: [facility] [address], [place] [address]- Medications What How Much When Instructions Unchanged [...] fluticasone nasal (fluticasone 0.05 mg/ inh Nasal Howells) 2 Sprays Nasal Inhalation Every day each [...] Urnls Dip Stick Auto w/o Microscopy POC 97681 (07/02/2022) Bilirubin Urine Dipstick - Negative Blood Urine Dipstick - Trace-lysed Glucose Urine Dipstick - Negative Ketones Urine Dipstick - Negative Leukocytes Urine Dipstick - Negative Nitrite Urine Dipstick - Negative Protein Urine Dipstick - Negative Specific Kenly Urine Dipstick - >=1.030 Urine Appearance Urine [...] include: ? (more content not included)... Normal [facility] Patient Educationon 07-03-19 Patient Education [...] these instructions at home: Medicines ? Take hhci-nlc-oaquogy and prescription medicines only as told by [...] the blood stops without treatment. ? Take jflh-ehp-whnzsvh and prescription medicines only as told by your health care provider. ? Drink enough fluid to keep your urine clear or pale yellow. This information is not intended to replace advice given to you by your health care provider. Make sure you discuss any questions you have with your health care provider. Document Released: 04/08/2006 Document Revised: 09/02/2019 Document Reviewed: 05/11/2017 [employer] Patient Education ? 2019 [employer] Normal [facility] Urine Cytology ([facility])on 0 07-02-2022 Method of Extraction Voided Normal [facility] Comment on above: Performed By: #### 1 [id number] ####[facility] [address] [place] [address] Number of Jars 1 Invalid Interpretation Code [facility] Comment on above: Performed By: #### 1 [id number] ####[facility] [address] [place] [address] Specimen Urine Normal [facility] Comment on above: Performed By: #### 1 [id number] ####[facility] [address] [place] [address] Type of Service Technical Only Normal [facility] Comment on above: Performed By: #### 1 [id number] ####[facility] [address] [place] [address] PTH INTACTon 05-22-2022 PTH, Intact 75 pg/mL Critically high 15-65 [facility] Comment on above: Performed By: #### P THINT #### [facility] [address] [place] [address] Dr. Andrea Mccarthy FERRITINon 05-21-2022 Ferritin [Mass/Vol] 124.0 ng/mL Normal 8.0-252.0 [facility] Comment on above: Performed By: #### U KIM, MG, PHOS #### [facility] [address] [place] [address] Dr. Andrea Mccarthy HEMOGRAM AND PLATELon 2022 Hematocrit (Bld) [Volume fraction] 40.1 % Normal 36.0-48.0 [facility] Comment on above: Performed By: #### U KMI, MG, PHOS #### [facility] [address] [place] [address] Dr. Andrea Mccarthy Hemoglobin (Bld) [Mass/Vol] 13.2 g/dL Normal 12.0-16.0 [facility] Comment on above: Performed By: #### U KIM, MG, PHOS #### [facility] [address] [place] [address] Dr. Andrea Mccarthy MCH (RBC) [Entitic mass] 28.0 pg Normal 26.7-34.0 [facility] Comment on above: Performed By: #### U KIM, MG, PHOS #### [facility] [address] [place] [address] Dr. Andrea Mccarthy MCHC (RBC) [Mass/Vol] 32.9 g/dL Normal 29.9-35.2 [facility] Comment on above: Performed By: #### U KIM, MG, PHOS #### [facility] [address] [address] [address] Andrea Mccarthy MCV (RBC) [Entitic vol] 85.1 fL Normal 81.0-99.0 [facility] Comment on above: Performed By: #### U KIM, MG, PHOS #### [facility] [address] [address] [address] Andrea Mccarthy PLT 255 103/ul Normal 150-450 [facility] Comment on above: Performed By: #### U KIM, MG, PHOS #### [facility] [address] [place] [address] Dr. Andrea Mccarthy RBC 4.71 106/ul Normal 4.20-5.40 [facility] Comment on above: Performed By: #### U KIM, MG, PHOS #### [facility] [address] [place] [address] Dr. Andrea Mccarthy WBC 5.9 103/ul Normal 4.0-11.0 [facility] Comment on above: Performed By: #### U KIM, MG, PHOS #### [facility] [address] [place] [address] Dr. Andrea Mccarthy IRON AND TIBCon 05-21-2022 % SATURATION 18.5 % Normal [facility] Comment on above: Performed By: #### U KIM, MG, PHOS #### [facility] [address] [address] [address] Andrea Mccarthy Iron [Mass/Vol] 51.0 ug/dL Normal 50.0-170.0 [facility] Comment on above: Performed By: #### U KIM, MG, PHOS #### [facility] [address] [place] [address] Dr. Andrea Mccarthy TIBC DIRECT 276.0 ug/dL Normal 250.0-450.[address] [facility] Comment on above: Performed By: #### U KIM, MG, PHOS #### [facility] [address] [place], [place] [id number] Dr. Andrea Mccarthy MAGNESIUMon 05-21-2022 Magnesium [Mass/Vol] 1.8 mg/dL Normal 1.8-2.4 [facility] Comment on above: Performed By: #### U KIM, MG, PHOS #### [facility] [address] [place] [address] Dr. Andrea Mccarthy RENAL FUNCTION PANELon 05-21 Albumin [Mass/Vol] 3.5 g/dL Normal 3.4-5.0 [facility] Comment on above: Performed By: #### U KIM, MG, PHOS #### [facility] [address] [place] [address] Dr. Andrea Mccarthy Calcium [Mass/Vol] 8.5 mg/dL Normal 8.5-10.1 [facility] Comment on above: Performed By: #### U KIM, MG, PHOS #### [facility] [address] [place] [address] Dr. Andrea Mccarthy Chloride [Moles/Vol] 104 mmol/L Normal 98-107 [facility] Comment on above: Performed By: #### U KIM, MG, PHOS #### [facility] [address] [place] [address] Dr. Andrea Mccarthy CO2 [Moles/Vol] 29.6 mmol/L Normal 21.0-32.0 [facility] Comment on above: Performed By: #### U KIM, MG, PHOS #### [facility] [address] [place] [address] Dr. Andrea Mccarthy Creatinine [Mass/Vol] 1.23 mg/dL Critically high 0.55-1.02 [facility] Comment on above: Performed By: #### U KIM, MG, PHOS #### [facility] [address] [place] [address] Dr. Andrea Mccarthy EGFR-AF LUXEMBOURGER 52 mL/min/1.73m2 Critically low >=60 [facility] Comment on above: Performed By: #### U KIM, MG, PHOS #### [facility] [address] [place] [address] Dr. Andrea Mccarthy EGFR-NON AF LUXEMBOURGER 43 mL/min/1.73m2 Critically low >=60 [facility] Comment on above: Performed By: #### U KIM, MG, PHOS #### [facility] [address] [address] [address] Andrea Mccarthy Glucose [Mass/Vol] 92 mg/dL Normal 74-106 [facility] Comment on above: Performed By: #### U KIM, MG, PHOS #### [facility] [address] [address] [address] Andrea Mccarthy Phosphate [Mass/Vol] 3.3 mg/dL Normal 2.6-4.7 [facility] Comment on above: Performed By: #### U KIM, MG, PHOS #### [facility] [address] [place] [address] Dr. Andrea Mccarthy Potassium [Moles/Vol] 3.9 mmol/L Normal 3.5-5.1 [facility] Comment on above: Performed By: #### U KIM, MG, PHOS #### [facility] [address] [address] [address] Andrea Mccarthy Sodium [Moles/Vol] 141 mmol/L Normal 136-145 [facility] Comment on above: Performed By: #### U KIM, MG, PHOS #### [facility] [address] [place] [address] Dr. Andrea Mccarthy Urea nitrogen [Mass/Vol] 25.0 mg/dL Critically high 7.0-18.0 [facility] Comment on above: Performed By: #### U KIM, MG, PHOS #### [facility] [address] [place] [address] Dr. Andrea Mccarthy UA RANDOM W/MICROSCOPICon BACTERIA NONE SEEN Normal NONE SEEN [facility] Comment on above: Performed By: #### U AMIC #### [facility] Laboratory [address] [address] [address] Andrea Mccarthy Bilirubin Ql (U) Negative Normal NEGATIVE [facility] Comment on above: Performed By: #### U AMIC #### [facility] Laboratory [address] [address] [address] Andrea Mccarthy CAST NONE SEEN Normal NONE SEEN [facility] Comment on above: Performed By: #### U AMIC #### [facility] Laboratory [address] [address] [address] Andrea Mccarthy Clarity (U) CLEAR Normal CLEAR The [facility] Comment on above: Performed By: #### U AMIC #### [facility] Laboratory [address] [address] [address] Andrea Mccarthy Color (U) YELLOW Normal YELLOW [facility] Comment on above: Performed By: #### U AMIC #### [facility] Laboratory [address] [address] [address] Andrea Mccarthy Crystals LM Nom (Urine sed) NONE SEEN Normal NONE SEEN [facility] Comment on above: Performed By: #### U AMIC #### [facility] Laboratory [address] [place] [address] Dr. Andrea Mccarthy Epithelial cells LM Ql (Urine sed) FEW Abnormal NONE SEEN /RARE [facility] Comment on above: Performed By: #### U AMIC #### [facility] Laboratory [address] [address] [address] Andrea Mccarthy Glucose Ql (U) Negative Normal NEGATIVE [facility] Comment on above: Performed By: #### U AMIC #### [facility] Laboratory [address] [place] [address] Dr. Andrea Mccarthy Hemoglobin Ql (U) TRACE-INTACT Abnormal NEGATIVE [facility] Comment on above: Performed By: #### U AMIC #### [facility] Laboratory [address] [place] [address] Dr. Andrea Mccarthy Ketones Ql (U) Negative Normal NEGATIVE [facility] Comment on above: Performed By: #### U AMIC #### [facility] Laboratory [address] [address] [address] Andrea Mccarthy LEUKOCYTES Negative Normal NEGATIVE The [facility] Comment on above: Performed By: #### U AMIC #### [facility] Laboratory [address] [address] [address] Andrea Mccarthy MUCOUS TRACE Abnormal NONE SEEN [facility] Comment on above: Performed By: #### U AMIC #### [facility] Laboratory [address] [address] [address] Andrea Mccarthy Nitrite Ql (U) Negative Normal NEGATIVE [facility] Comment on above: Performed By: #### U AMIC #### [facility] Laboratory [address] [place] [address] Dr. Andrea Mccarthy pH (U) 5.0 [pH] Normal 5-9 [facility] Comment on above: Performed By: #### U AMIC #### [facility] Laboratory [address] [address] [address] Andrea Mccarthy RBC 0-2 Normal 0-2 [facility] Comment on above: Performed By: #### U AMIC #### [facility] Laboratory [address] [place] [address] Dr. Andrea Mccarthy SPEC GRAVITY 1.025 Normal 1.005-<=1.[address] [facility] Comment on above: Performed By: #### U AMIC #### [facility] Laboratory [address] [place] [address] Dr. Andrea Mccarthy UA PROTEIN Negative Normal NEGATIVE/ TRACE The [facility] Comment on above: Performed By: #### U AMIC #### [facility] Laboratory [address] [place] [address] Dr. Andrea Mccarthy Urobilinogen Qn (U) 0.2 {Mikel'U}/dL Normal 0.2 - 1. 0 [facility] Comment on above: Performed By: #### U AMIC #### [facility] Laboratory [address] [place] [address] Dr. Andrea Mccarthy WBC NONE SEEN Normal NONE SEEN [facility] Comment on above: Performed By: #### U AMIC #### [facility] Laboratory [address] [place] [address] Dr. Andrea Mccarthy URINE T PROTEIN CREAT RATIOo n 05-21-2022 Protein (U) [Mass/Vol] 21.5 mg/dL Critically high <=12.0 [facility] Comment on above: Performed By: #### U KIM, MG, PHOS #### [facility] Laboratory [address] [address] [address] Andrea Mccarthy UR PROT CREAT RAT 0.15 Normal The [facility] Comment on above: Performed By: #### U KIM, MG, PHOS #### [facility] Laboratory [address] [address] [address] Andrea Mccarthy URINE CREAT 144.81 mg/dL Normal 20.00-300.00 [facility] Comment on above: Performed By: #### U KIM, MG, PHOS #### [facility] Laboratory [address] [address] [address] Andrea Mccarthy VIT B12 AND FOLATEon 023 Cobalamin (Vitamin B12) [Mass/Vol] 1425.0 pg/mL Critically high 193.0-986.0 [facility] Comment on above: Performed By: #### U KIM, MG, PHOS #### [facility] Laboratory [address] [address] [address] Andrea Mccarthy FOLATE 22.60 ng/mL Normal 8.60-58.90 [facility] Comment on above: Performed By: #### U KIM, MG, PHOS #### [facility] Laboratory [address] SINUSES WO CONon [...] Normal The [facility] INSULINon 11-15-2021 Insulin 9.0 uIU/mL Normal 2.6-24.9 [facility] Comment on above: Performed By: #### I NSULIN #### [facility] Laboratory [address] [address] [address] Andrea Mccarthy PTH INTACTon 11-15-2021 PTH, Intact 43 pg/mL Normal 15-65 [facility] Comment on above: Performed By: #### U KIM, MG, PHOS #### [facility] Laboratory [address] [address] [address] Andrea Mccarthy VIT D 25-OH LABCORPon 2021 Vitamin D, 25-Hydroxy 85.4 ng/mL Normal 30.0-100.0 [facility] Comment on above: Result Comment: Samina min D deficiency has been defined by the [place] [employer] and an Endocrine Society practice guideline as a level of serum 25-OH vitamin D less than 20 ng/mL (1,2). The Endocrine Society went on to further define vitamin D insufficiency as a level between 21 and 29 ng/mL (2). 1. IOM ([place] [employer]). 2010. Dietary reference intakes for calcium and D. [place]: The National Academies Press. 2. Dagoberto MF, Rachel NC, Edilson MARTINEZ, et al. Evaluation, treatment, and prevention of vitamin D deficiency: an Endocrine Society clinical practice guideline. JCEM. 2010; 96(7):1911-30. Performed By: #### V ITADLC #### [facility] Laboratory [address] [address] [address] Andrea Mccarthy CBC AUTO DIFFon 11-14-2021 BASO # 0.0 103/ul Normal 0.0-0.1 [facility] Comment on above: Performed By: #### U KIM, MG, PHOS #### [facility] Laboratory [address] [place] [address] Dr. Andrea Mccarthy Basophils/100 WBC (Bld) 0.6 % Normal 0.2-2.0 [facility] Comment on above: Performed By: #### U KIM, MG, PHOS #### [facility] Laboratory [address] [place] [address] Dr. Andrea Mccarthy EO # 0.2 103/ul Normal 0.0-0.7 [facility] Comment on above: Performed By: #### U KIM, MG, PHOS #### [facility] Laboratory [address] [place] [address] Dr. Andrea Mccarthy Eosinophils/100 WBC (Bld) 2.4 % Normal 0.9-7.0 [facility] Comment on above: Performed By: #### U KIM, MG, PHOS #### [facility] Laboratory [address] [place] [address] Dr. Andrea Mccarthy Erythrocyte distribution width (RBC) [Ratio] 14.0 % Normal 11.0-15.0 [facility] Comment on above: Performed By: #### U KIM, MG, PHOS #### [facility] Laboratory [address] [place] [address] Dr. Andrea Mccarthy Hematocrit (Bld) [Volume fraction] 35.7 % Critically low 36.0-48.0 [facility] Comment on above: Performed By: #### U KIM, MG, PHOS #### [facility] Laboratory [address] [place] [address] Dr. Andrea Mccarthy Hemoglobin (Bld) [Mass/Vol] 11.2 g/dL Critically low 12.0-16.0 [facility] Comment on above: Performed By: #### U KIM, MG, PHOS #### [facility] Laboratory [address] [place] [address] Dr. Andrea Mccarthy IG # 0.02 10e3/ul Normal 0.00-0.03 [facility] Comment on above: Performed By: #### U KIM, MG, PHOS #### [facility] Laboratory [address] [address] [address] Andrea Mccarthy IG % 0.3 % Normal 0.0-0.5 [facility] Comment on above: Performed By: #### U KIM, MG, PHOS #### [facility] Laboratory [address] [address] [address] Andrea Mccarthy LYMPH # 1.8 103/ul Normal 1.2-3.8 [facility] Comment on above: Performed By: #### U KIM, MG, PHOS #### [facility] Laboratory [address] [address] [address] Andrea Mccarthy Lymphocytes/100 WBC (Bld) 24.9 % Normal 20.5-60.0 [facility] Comment on above: Performed By: #### U KIM, MG, PHOS #### [facility] Laboratory [address] [place] [address] Dr. Andrea Mccarthy MANUAL DIFF REQ NO Normal [facility] Comment on above: Performed By: #### U KIM, MG, PHOS #### [facility] Laboratory [address] [address] [address] Andrea Mccarthy MCH (RBC) [Entitic mass] 27.3 pg Normal 26.7-34.0 [facility] Comment on above: Performed By: #### U KIM, MG, PHOS #### [facility] Laboratory [address] [place] [address] Dr. Andrea Mccarthy MCHC (RBC) [Mass/Vol] 31.4 g/dL Normal 29.9-35.2 [facility] Comment on above: Performed By: #### U KIM, MG, PHOS #### [facility] Laboratory [address] [address] [address] Andrea Mccarthy MCV (RBC) [Entitic vol] 87.1 fL Normal 81.0-99.0 [facility] Comment on above: Performed By: #### U KIM, MG, PHOS #### [facility] Laboratory [address] [address] [address] Andrea Mccarthy MONO # 0.5 103/ul Normal 0.3-0.8 [facility] Comment on above: Performed By: #### U KIM, MG, PHOS #### [facility] Laboratory [address] [place] [address] Dr. Andrea Mccarthy Monocytes/100 WBC (Bld) 7.0 % Normal 1.7-12.0 [facility] Comment on above: Performed By: #### U KIM, MG, PHOS #### [facility] Laboratory [address] [place] [address] Dr. Andrea Mccarthy NEUT # 4.7 103/ul Normal 1.4-6.5 [facility] Comment on above: Performed By: #### U KIM, MG, PHOS #### [facility] Laboratory [address] [place] [address] Dr. Andrea Mccarthy Neutrophils/100 WBC (Bld) 64.8 % Normal 43.0-75.0 [facility] Comment on above: Performed By: #### U KIM, MG, PHOS #### [facility] Laboratory [address] [place] [address] Dr. Andrea Mccarthy Platelet mean volume (Bld) [Entitic vol] 10.1 fL Normal 9.5-13.5 [facility] Comment on above: Performed By: #### U KIM, MG, PHOS #### [facility] Laboratory [address] [place] [address] Dr. Andrea Mccarthy PLT 309 103/ul Normal 150-450 [facility] Comment on above: Performed By: #### U KIM, MG, PHOS #### [facility] Laboratory [address] [place] [address] Dr. Andrea Mccarthy RBC 4.10 106/ul Critically low 4.20-5.40 [facility] Comment on above: Performed By: #### U KIM, MG, PHOS #### [facility] Laboratory [address] [place] [address] Dr. Andrea Mccarthy WBC 7.2 103/ul Normal 4.0-11.0 [facility] Comment on above: Performed By: #### U KIM, MG, PHOS #### [facility] Laboratory [address] [place] [address] Dr. Andrea Mccarthy FREE THYROXINE INDEX T7on FTI 4.14 Normal 1.30-4.50 [facility] Comment on above: Performed By: #### U KIM, MG, PHOS #### [facility] Laboratory [address] [address] [address] Andrea Mccarthy T3U 36.0 % Normal 30.0-39.0 [facility] Comment on above: Performed By: #### U KIM, MG, PHOS #### [facility] Laboratory [address] [address] [address] Andrea Mccarthy T4 [Mass/Vol] 11.50 ug/dL Normal 4.80-13.90 [facility] Comment on above: Performed By: #### U KIM MG, PHOS #### [facility] Laboratory [address] [address] [address] Andrea Mccarthy GLYCOHEMOGLOBIN A1Con 2021 ADA RECOMMENDATION SEE BELOW Normal [facility] Comment on above: Result Comment: ADA RECOMMENDED LIMIT 4.0 - 6.0 ADA THERAPEUTIC TARGET < 7.0 ACTION SUGGESTED > 7.0 Performed By: #### A 1C #### [facility] Laboratory [address] [address] [address] Andrea Mccarthy Glucose [Mass/Vol] 137 mg/dL Normal [facility] Comment on above: Performed By: #### A 1C #### [facility] Laboratory [address] [address] [address] Andrea Mccarthy HbA1c (Bld) [Mass fraction] 6.4 % Critically high 4.5-6.2 [facility] Comment on above: Performed By: #### A 1C #### [facility] Laboratory [address] [address] [address] Andrea Mccarthy IRONon 11-14-2021 Iron [Mass/Vol] 34.0 ug/dL Critically low 50.0-170.0 [facility] Comment on above: Performed By: #### U KIM, MG, PHOS #### [facility] Laboratory [address] [address] [address] Andrea Mccarthy LIPID PROFILEon 11-14-2021 CHOL-HDL RATIO NORM SEE BELOW Normal [facility] Comment on above: Result Comment: 3.3 - 4.4 LOW RISK 4.4 - 7.1 AVERAGE RISK 7.1 - 11.0 MODERATE RISK >11.0 HIGH RISK Performed By: #### L IPID, TSH, T7, CMP #### [facility] Laboratory [address] [address] [address] Andrea Mccartyh Cholesterol [Mass/Vol] 152 mg/dL Normal <=200 [facility] Comment on above: Performed By: #### L IPID, TSH, T7, CMP #### [facility] Laboratory [address] [address] [address] Andrea Mccarthy Cholesterol in HDL [Mass/Vol] 51 mg/dL Normal 40-60 [facility] Comment on above: Performed By: #### L IPID, TSH, T7, CMP #### [facility] Laboratory [address] [place] [address] Dr. Andrea Mccarthy Cholesterol in LDL [Mass/Vol] 83.4 mg/dL Normal [facility] Comment on above: Performed By: #### L IPID, TSH, T7, CMP #### [facility] Laboratory [address] [address] [address] Andrea Mccarthy Cholesterol.total/Ch olesterol in HDL [Mass ratio] 3.0 {ratio} Normal [facility] Comment on above: Performed By: #### L IPID, TSH, T7, CMP #### [facility] Laboratory [address] [address] [address] Andrea Mccarthy HDL NORMAL > or = 60 mg/dl - LOW CARDIOVASCULAR RISK <40 mg/dl - HIGH CARDIOVASCULAR RISK Normal [facility] Comment on above: Performed By: #### L IPID, TSH, T7, CMP #### [facility] Laboratory [address] [place] [address] Dr. Andrea Mccarthy LDL CALC NORMAL SEE BELOW Normal [facility] Comment on above: Result Comment: <100 mg/dl OPTIMAL 100 - 129 mg/dl NEAR OR ABOVE OPTIMAL 130 - 159 mg/dl BORDERLINE HIGH 160 - 189 mg/dl HIGH >190 mg/dl VERY HIGH Performed By: #### L IPID, TSH, T7, CMP #### [facility] Laboratory [address] [place] [address] Dr. Andrea Mccarthy Triglyceride [Mass/Vol] 88 mg/dL Normal <=150 [facility] Comment on above: Performed By: #### L IPID, TSH, T7, CMP #### [facility] Laboratory [address] [place] [address] Dr. Andrea Mccarthy VLDL CALC 17.6 mg/dL Normal [facility] Comment on above: Performed By: #### L IPID, TSH, T7, CMP #### [facility] Laboratory [address] [place] [address] Dr. Andrea Mccarthy MAGNESIUMon 11-14-2021 Magnesium [Mass/Vol] 2.2 mg/dL Normal 1.8-2.4 [facility] Comment on above: Performed By: #### U KIM, MG, PHOS #### [facility] Laboratory [address] [place] [address] Dr. Andrea Mccarthy PHOSPHORUSon 11-14-2021 Phosphate [Mass/Vol] 3.0 mg/dL Normal 2.6-4.7 [facility] Comment on above: Performed By: #### U KIM, MG, PHOS #### [facility] Laboratory [address] [place] [address] Dr. Andrea Mccarthy PROF 14(COMP METB)on 022 Albumin [Mass/Vol] 3.2 g/dL Critically low 3.4-5.0 [facility] Comment on above: Performed By: #### L IPID, TSH, T7, CMP #### [facility] Laboratory [address] [place] [address] Dr. nAdrea Mccarthy Albumin/Globulin [Mass ratio] 0.8 {ratio} Normal [facility] Comment on above: Performed By: #### L IPID, TSH, T7, CMP #### [facility] Laboratory [address] [place] [address] Dr. Andrea Mccarthy ALP [Catalytic activity/Vol] 51 U/L Normal 46-116 [facility] Comment on above: Performed By: #### L IPID, TSH, T7, CMP #### [facility] Laboratory [address] [address] [address] Andrea Mccarthy ALT [Catalytic activity/Vol] 13 U/L Critically low 14-59 [facility] Comment on above: Performed By: #### L IPID, TSH, T7, CMP #### [facility] Laboratory [address] [place] [address] Dr. Andrea Mccarthy Anion gap [Moles/Vol] 11.4 mmol/L Normal [facility] Comment on above: Performed By: #### L IPID, TSH, T7, CMP #### [facility] Laboratory [address] [place] [address] Dr. Andrea Mccarthy AST [Catalytic activity/Vol] 9 U/L Critically low 15-37 [facility] Comment on above: Performed By: #### L IPID, TSH, T7, CMP #### [facility] Laboratory [address] [place] [address] Dr. Andrea Mccarthy Bilirubin [Mass/Vol] 0.3 mg/dL Normal 0.2-1.0 [facility] Comment on above: Performed By: #### L IPID, TSH, T7, CMP #### [facility] Laboratory [address] [address] [address] Andrea Mccarthy Calcium [Mass/Vol] 8.4 mg/dL Critically low 8.5-10.1 Th e [facility] Comment on above: Performed By: #### L IPID, TSH, T7, CMP #### [facility] Laboratory [address] [place] [address] Dr. Andrea Mccarthy Chloride [Moles/Vol] 105 mmol/L Normal 98-107 [facility] Comment on above: Performed By: #### L IPID, TSH, T7, CMP #### [facility] Laboratory [address] [place] [address] Dr. Andrea Mccarthy CO2 [Moles/Vol] 27.7 mmol/L Normal 21.0-32.0 [facility] Comment on above: Performed By: #### L IPID, TSH, T7, CMP #### [facility] Laboratory [address] [place] [address] Dr. Andrea Mccarthy Creatinine [Mass/Vol] 1.31 mg/dL Critically high 0.55-1.02 [facility] Comment on above: Performed By: #### L IPID, TSH, T7, CMP #### [facility] Laboratory [address] [address] [address] Andrea Mccarthy EGFR-AF LUXEMBOURGER 49 mL/min/1.73m2 Critically low >=60 [facility] Comment on above: Performed By: #### L IPID, TSH, T7, CMP #### [facility] Laboratory [address] [address] [address] Andrea Mccarthy EGFR-NON AF LUXEMBOURGER 40 mL/min/1.73m2 Critically low >=60 [facility] Comment on above: Performed By: #### L IPID, TSH, T7, CMP #### [facility] Laboratory [address] [address] [address] Andrea Mccarthy Globulin (S) [Mass/Vol] 3.9 g/dL Normal [facility] Comment on above: Performed By: #### L IPID, TSH, T7, CMP #### [facility] Laboratory [address] [address] [address] Andrea Mccarthy Glucose [Mass/Vol] 97 mg/dL Normal 74-106 [facility] Comment on above: Performed By: #### L IPID, TSH, T7, CMP #### [facility] Laboratory [address] [place] [address] Dr. Andrea Mccarthy Potassium [Moles/Vol] 4.1 mmol/L Normal 3.5-5.1 [facility] Comment on above: Performed By: #### L IPID, TSH, T7, CMP #### [facility] Laboratory [address] [address] [address] Andrea Mccarthy Protein [Mass/Vol] 7.1 g/dL Normal 6.4-8.2 [facility] Comment on above: Performed By: #### L IPID, TSH, T7, CMP #### [facility] Laboratory [address] [address] [address] Andrea Mccarthy Sodium [Moles/Vol] 140 mmol/L Normal 136-145 [facility] Comment on above: Performed By: #### L IPID, TSH, T7, CMP #### [facility] Laboratory [address] [address] [address] Andrea Mccarthy Urea nitrogen [Mass/Vol] 23.0 mg/dL Critically high 7.0-18.0 [facility] Comment on above: Performed By: #### L IPID, TSH, T7, CMP #### [facility] Laboratory [address] [place] [address] Dr. Andrea Mccarthy Urea nitrogen/Creatinine [Mass ratio] 17.6 mg/mg Normal [facility] Comment on above: Performed By: #### L IPID, TSH, T7, CMP #### [facility] Laboratory [address] [place] [address] Dr. Andrea Mccarthy TSHon 11-14-2021 TSH 0.032 uIU/mL Critically low 0.358-3.740 [facility] Comment on above: Performed By: #### U KIM, MG, PHOS #### [facility] Laboratory [address] [place] [address] Dr. Andrea Mccarthy UA RANDOM W/MICROSCOPICon BACTERIA NONE SEEN Normal NONE SEEN [facility] Comment on above: Performed By: #### U KIM, MG, PHOS #### [facility] Laboratory [address] [place] [address] Dr. Andrea Mccarthy Bilirubin Ql (U) Negative Normal NEGATIVE [facility] Comment on above: Performed By: #### U KIM, MG, PHOS #### [facility] Laboratory [address] [place] [address] Dr. Andrea Mccarthy CAST NONE SEEN Normal NONE SEEN The [facility] Comment on above: Performed By: #### U KIM, MG, PHOS #### [facility] Laboratory [address] [place] [address] Dr. Andrea Mccarthy Clarity (U) CLEAR Normal CLEAR [facility] Comment on above: Performed By: #### U KIM, MG, PHOS #### [facility] Laboratory [address] [place] [address] Dr. Andrea Mccarthy Color (U) YELLOW Normal YELLOW [facility] Comment on above: Performed By: #### U KIM, MG, PHOS #### [facility] [facility] [address] [address] [address] Andrea Mccarthy Crystals LM Nom (Urine sed) NONE SEEN Normal NONE SEEN [facility] Comment on above: Performed By: #### U KIM, MG, PHOS #### [facility] [address] [address] [address] Andrea Mccarthy Epithelial cells LM Ql (Urine sed) FEW Abnormal NONE SEEN /RARE [facility] Comment on above: Performed By: #### U KIM, MG, PHOS #### [facility] [address] [address] [address] Andrea Mccarthy Glucose Ql (U) Negative Normal NEGATIVE [facility] Comment on above: Performed By: #### U KIM, MG, PHOS #### [facility] [address] [place] [address] Dr. Andrea Mccarthy Hemoglobin Ql (U) TRACE-INTACT Abnormal NEGATIVE [facility] Comment on above: Performed By: #### U KIM, MG, PHOS #### [facility] [address] [address] [address] Andrea Mccarthy Ketones Ql (U) Negative Normal NEGATIVE [facility] Comment on above: Performed By: #### U KIM, MG, PHOS #### [facility] [address] [place] [address] Dr. Andrea Mccarthy LEUKOCYTES Negative Normal NEGATIVE [facility] Comment on above: Performed By: #### U KIM, MG, PHOS #### [facility] [address] [address] [address] Andrea Mccarthy MUCOUS SMALL Abnormal NONE SEEN [facility] Comment on above: Performed By: #### U KIM, MG, PHOS #### [facility] [address] [address] [address] Andrea Mccarthy Nitrite Ql (U) Negative Normal NEGATIVE [facility] Comment on above: Performed By: #### U KIM, MG, PHOS #### [facility] [address] [address] [address] Andrea Mccarthy pH (U) 5.5 [pH] Normal 5-9 [facility] Comment on above: Performed By: #### U KIM, MG, PHOS #### [facility] [address] [place] [address] Dr. Andrea Mccarthy RBC 0-2 Normal 0-2 [facility] Comment on above: Performed By: #### U KIM, MG, PHOS #### [facility] [address] [place] [address] Dr. Andrea Mccarthy SPEC GRAVITY 1.020 Normal 1.005-<=1.[address] [facility] Comment on above: Performed By: #### U KIM, MG, PHOS #### [facility] [address] [place] [address] Dr. Andrea Mccarthy UA PROTEIN Negative Normal NEGATIVE/ TRACE [facility] Comment on above: Performed By: #### U KIM, MG, PHOS #### [facility] [address] [place] [address] Dr. Andrea Mccarthy Urobilinogen Qn (U) 0.2 {Mikel'U}/dL Normal 0.2 - 1. 0 [facility] Comment on above: Performed By: #### U KIM, MG, PHOS #### [facility] [address] [place] [address] Dr. Andrea Mccarthy WBC NONE SEEN Normal NONE SEEN [facility] Comment on above: Performed By: #### U KIM, MG, PHOS #### [facility] [address] [place] [address] Dr. Andrea Mccarthy URIC ACID SERUMon 11-14-2021 Urate [Mass/Vol] 5.0 mg/dL Normal 2.6-6.0 [facility] Comment on above: Performed By: #### U KIM, MG, PHOS #### [facility] [address] [place] [address] Dr. Andrea Mccarthy URINE T PROTEIN CREAT RATIOo n 11-14-2021 Protein (U) [Mass/Vol] 22.3 mg/dL Critically high <=12.0 [facility] Comment on above: Performed By: #### U KIM, MG, PHOS #### [facility] [address] [address] [address] Andrea Mccarthy UR PROT CREAT RAT 0.15 Normal [facility] Comment on above: Performed By: #### U KIM, MG, PHOS #### [facility] [address] [address] [address] Andrea Mccarthy URINE CREAT 151.50 mg/dL Normal 20.00-300.[address] [facility] Comment on above: Performed By: #### U KIM, MG, PHOS #### [facility] [address] [address] [address] Andrea Mccarthy Vital Signs Date Time Vital Sign Value Performing Clinician Facility 10-19-2023 12:21-0400 Body height 162.56 cm [facility] 10-19-2023 12:21-0400 Body mass index (BMI) [Ratio] 30.4 kg/m2 [facility] 10-19-2023 12:21-0400 Body temperature 98.3 [degF] [facility] 10-19-2023 12:21-0400 Body weight 80.39 kg [facility] 10-19-2023 12:21-0400 Heart rate 82 /min [facility] 10-19-2023 12:21-0400 Respiratory rate 16 /min [facility] 10-19-2023 12:21-0400 SaO2% (BldA) [Mass fraction] 96 % [facility] 05-21-2023 10:40-0500 Body height 162.56 cm Audie Dionne Other [employer] [facility] [employer] Other 05-21-2023 10:40-0500 Body mass index (BMI) [Ratio] 29.59 kg/m2 Audie Dionne Other [employer] Other 05-21-2023 10:40-0500 Body temperature 96.3 [degF] Audie Dionne Other [employer] Other 05-21-2023 10:40-0500 Body weight 78.2 kg Aduie Dionne Other [employer] Other 05-21-2023 10:40-0500 Diastolic blood pressure 80 mm[Hg] Audie Dionne Other [employer] Other 05-21-2023 10:40-0500 Respiratory rate 18 /min Audie Dionne Other [employer] Other 05-21-2023 10:40-0500 SaO2% (BldA) [Mass fraction] 98 % Audie Dionne Other [employer] Other 05-21-2023 10:40-0500 Systolic blood pressure 118 mm[Hg] Audie Dionne Other [employer] Other 11-19-2022 11:00-0400 Body height 162.56 cm Audie Dionne Other [employer] Other 11-19-2022 11:00-0400 Body mass index (BMI) [Ratio] 28.9 kg/m2 Audie Dionne Other [employer] Other 11-19-2022 11:00-0400 Body temperature 96 [degF] Audie Dionne Other [employer] Other 11-19-2022 11:00-0400 Body weight 76.39 kg Audie Dionne Other [employer] Other 11-19-2022 11:00-0400 Diastolic blood pressure 81 mm[Hg] Audie Dionne Other [employer] Other 11-19-2022 11:00-0400 Respiratory rate 18 /min Audie Dionne Other [employer] Other 11-19-2022 11:00-0400 SaO2% (BldA) [Mass fraction] 98 % Audie Dionne Other [employer] Other 11-19-2022 11:00-0400 Systolic blood pressure 132 mm[Hg] Audie Dionne Other [employer] Other 07-02-2022 14:17-0400 Blood Pressure Location Iván TOMLIN [facility] 07-02-2022 14:17-0400 Diastolic blood pressure 88 mm[Hg] Iván TOMLIN [facility] 07-02-2022 14:17-0400 Heart rate 71 /min Iván TOMLIN [facility] 07-02-2022 14:17-0400 Systolic blood pressure 128 mm[Hg] Iván TOMLIN [facility] 05-29-2022 10:40-0500 Body height 162.56 cm Audie Dionne Other [employer] Other 05-29-2022 10:40-0500 Body mass index (BMI) [Ratio] 28.22 kg/m2 Audie Dionne Other [employer] Other 05-29-2022 10:40-0500 Body temperature 96.3 [degF] Audie Dionne Other [employer] Other 05-29-2022 10:40-0500 Body weight 74.57 kg Audie Dionne Other [employer] Other 05-29-2022 10:40-0500 Diastolic blood pressure 81 mm[Hg] Audie Dionne Other [employer] Other 05-29-2022 10:40-0500 Respiratory rate 18 /min Audie Dionne Other [employer] Other 05-29-2022 10:40-0500 SaO2% (BldA) [Mass fraction] 98 % Audie Dionne Other [employer] Other 05-29-2022 10:40-0500 Systolic blood pressure 125 mm[Hg] Audie Dionne Other [employer] Other 11-21-2021 12:40-0400 Body height 162.56 cm Audie Dionne Other [employer] Other 11-21-2021 12:40-0400 Body mass index (BMI) [Ratio] 28.22 kg/m2 Audie Dionne Other [employer] Other 11-21-2021 12:40-0400 Body temperature 96.8 [degF] Audie Dionne Other [employer] Other 11-21-2021 12:40-0400 Body weight 74.57 kg Audie Dionne Other [employer] Other 11-21-2021 12:40-0400 Diastolic blood pressure 79 mm[Hg] Audie Dionne Other [employer] Other 11-21-2021 12:40-0400 Respiratory rate 18 /min Audie Dionne Other [employer] Other 11-21-2021 12:40-0400 SaO2% (BldA) [Mass fraction] 98 % Audie Dionne Other [employer] Other 11-21-2021 12:40-0400 Systolic blood pressure 117 mm[Hg] Audie Dionne Other [employer] Other 06-01-2021 16:20-0500 Body height 162.56 cm Audie Dionne Other [employer] Other 06-01-2021 16:20-0500 Body mass index (BMI) [Ratio] 30.89 kg/m2 Audie Dionne Other [employer] Other 06-01-2021 16:20-0500 Body temperature 96.5 [degF] Audie Dionne Other [employer] Other 06-01-2021 16:20-0500 Body weight 81.65 kg Audie Dionne Other [employer] Other 06-01-2021 16:20-0500 Diastolic blood pressure 80 mm[Hg] Audie Dionne Other [employer] Other 06-01-2021 16:20-0500 Respiratory rate 18 /min Audie Dionne Other [employer] Other 06-01-2021 16:20-0500 SaO2% (BldA) [Mass fraction] 98 % Audie Dionne Other [employer] Other 06-01-2021 16:20-0500 Systolic blood pressure 119 mm[Hg] Audie Dionne Other [employer] Other 03-27-2021 16:20-0500 Body height 162.56 cm Audie Dionne Other [employer] Other 03-27-2021 16:20-0500 Body mass index (BMI) [Ratio] 31.55 kg/m2 Audie Dionne Other [employer] Other 03-27-2021 16:20-0500 Body temperature 96.5 [degF] Audie Dionne Other [employer] Other 03-27-2021 16:20-0500 Body weight 83.37 kg Audie Dionne Other [employer] Other 03-27-2021 16:20-0500 Diastolic blood pressure 80 mm[Hg] Audie Dionne Other [employer] Other 03-27-2021 16:20-0500 Respiratory rate 18 /min Audie Dionne Other [employer] Other 03-27-2021 16:20-0500 SaO2% (BldA) [Mass fraction] 99 % Audie Dionne Other [employer] Other 03-27-2021 16:20-0500 Systolic blood pressure 119 mm[Hg] Audie Dionne Other [employer] Other Encounters Encounter Date Encounter Type Care Provider Facility Start: 10-19-2023 End: 10-19-2023 ambulatory [facility] Work Phone: Start: 10-19-2023 End: 10-19-2023 Patient encounter procedure [facility] Work Phone: Start: 05-21-2023 End: 05-21-2023 ambulatory Audie Dionne Other [employer] Other Start: 05-21-2023 Office outpatient vi sit 25 minutes Audie Dionne [facility] Start: 11-19-2022 End: 11-19-2022 ambulatory Audie Dionne Other [employer] Other Start: 11-19-2022 Office outpatient vi sit 15 minutes Audie Dionne [facility] Start: 09-06-2022 ambulatory DAYANA LOPEZ Facility: Start: 07-17-2022 End: 07-18-2022 ambulatory Iván TOMLIN Facility:[facility] Start: 07-17-2022 End: 07-17-2022 Patient encounter procedure Iván TOMLIN [facility] Start: 07-07-2022 End: 07-08-[address] IVÁN TOMLIN . Facility: Start: 07-02-2022 End: 07-03-2022 ambulatory MD AUDIE TRUONG Facility: [facility] Start: 07-02-2022 End: 07-02-2022 Patient encounter procedure Iván TOMLIN [facility] Start: 05-31-2022 ambulatory MD AUDIE TRUONG Facility :[facility] Start: 05-29-2022 End: 05-29-2022 ambulatory Audie Truong Other [employer] Other Start: 05-29-2022 Office outpatient vi sit 25 minutes Audie Dionne [facility] Start: 05-21-2022 End: 05-22-2022 ambulatory DAYANAWEN SEAMANMER Facility:[facility] Start: 12-30-2021 End: 12-31-2021 ambulatory DAYANA JOHN Facility:[facility] Start: 11-21-2021 End: 11-21-2021 ambulatory Audie Dionne Other [employer] Other Start: 11-21-2021 Office outpatient vi sit 25 minutes Audie Dionne [facility] Start: 11-14-2021 End: 11-15-2021 ambulatory AUDIE DIONNE Facility:[facility] Start: 06-02-2021 End: 06-02-2021 ambulatory Uadie Dionne Other [employer] Other Start: 06-02-2021 Telephone encounter Audie Dionne [facility] Start: 06-01-2021 End: 06-01-2021 ambulatory Audie Dionne Other [employer] Other Start: 06-01-2021 Office outpatient vi sit 25 minutes Audie Dionne [facility] Start: 03-27-2021 End: 03-27-2021 ambulatory Audie Dionne Other [employer] Other Start: 03-27-2021 Office outpatient ne w 45 minutes Audie Dionne [facility] Procedures Date Procedure Procedure Detail Performing Clinician Start: 01-08-2019 Esophagogastroduodenoscopy Iván TOMLIN Abdominal hysterectomy Clarence TOMLIN Appendectomy Iván TOMLIN Colonoscopy Iván TOMLIN Payers Date Payer Category Payer Private Health Insurance [id number] 1950 Unknown [id number] 2.16.8 [id number] 1950 Unknown [id number] 2.16.8 [id number] 1950 Unknown [id number] 2.16.84 [id number] 1950 Unknown [id number] 2.16.84 [id number] 1950 Unknown [id number] 2.16.84 [id number] 1950 Unknown [id number] 2.16.84 [id number] 1950 Unknown [id number] 2.16.84 [id number] 1950 Unknown [id number] 2.16.84 [id number] Self-pay Self Pay [id number] Unknown [id number] Social History Date Type Detail Facility Tobacco smoking stat [facility] Unknown if ever smoked [facility] Start: 1950 Sex Assigned At Female F [facility] Sex Assigned At [facility] Start: 07-02-2022 End: 10-19-2023 Tobacco smoking status Never smoked tobacco (finding) [facility] Tobacco smoking status Never [facility] Goals Date Patient Goal Desired Activity /State Functional Status Date Assessment Result Facility 07-02-2022 Functional Status N/A [facility] Clinical Notes 03-27-2021 to 05-21-2023 Note [...] down the progression of CKD. 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 She appears to be euvolemic. Continue current Medications. Apr, Secondary hyperparathyroidism (ICD-10 - N25.81) MBD parameters including calcium, phosphorus, PTH and vitamin D are within the goal. Apr, Dyslipidemia (ICD-10 - E78.5) Continue stain. Monitor LFTs and lipid profile periodically. [employer] Other 07-31-2023 Evaluation note* Encounter Date Diagnosis [...] down the progression of CKD. Oct, Chris terrazas w cr kid I-IV (ICD-10 [...] advised to have repeat in 5 yrs [employer] Other [id number] Note [id number]:127[facility] 07-17-2022 Hospital Discharge instructions Patient [...] Address: [facility] [address] [place] [address]- [facility] (1) When: Unknown Comments:Call for any problems. [facility]03-28-2023 NoteCustom Cystoscopy ? Voiding after the [...] if you have a fever over 100 degrees.[facility] 07-02-2022 NoteChief Complaint Pt here for referral for microscopic hematuria [facility] Staff New patient referral from Dr. Truong [...] [facility] [address], [place] [address]- Additional Instructions: schedule cysto, CHRIS Patient Education [...] tab(s), Oral, q6hr fluticasone 0.05 mg/inh Nasal [place], 2 spray(s), Nasal, Daily (more content not included)...[facility]Result Comment: Electronically Signed By: Iván TOMLIN MD\.br\Date and Time Signed: 07/02/22 14:52 EDT\.br\Electronically Co-Signed By: Moira Estrada\.br\Date and Time Co-Signed: 07/02/22 14:50 [id number] Hospital Discharge instructions Patient Education 07/02/2022 14:22:27 [...] Follow these instructions at home: Medicines Take gsdz-pom-ctlhthj and prescription medicines only as told by [...] or the blood stops without treatment. Take diwb-yng-ittsqwr and prescription medicines only as told by your health care provider. Drink enough fluid to keep your urine clear or pale yellow. This information is not intended to replace advice given to you by your health care provider. Make sure you discuss any questions you have with your health care provider. Document Released: 04/08/2006 Document Revised: 09/02/2019 Document Reviewed: 05/11/2017 [employer] Patient Education 2020 [employer]. Follow Up Care 05/31/2022 13:31:32 With:KELLY BLACKMON, Iván Hsu, URL Address: [facility] [address] [place] [address]- When: Unknown [facility] Evaluation note* Encounter Date Diagnosis Assessment [...] advised to have repeat in 5 yrs [employer] Other 08-02-2022 Evaluation note* Encounter Date Diagnosis [...] stain. Monitor LFTs and lipid profile periodically. [employer] Other 02-10-2022 Evaluation note* Encounter Date Diagnosis [...] stain. Monitor LFTs and lipid profile periodically. [employer] Other 12-06-2021 Evaluation note* Encounter Date Diagnosis [...] down the progression of CKD. Mar, Chris mcfadden kid w cr kid I-IV (ICD-10 - I12.9) Blood pressure is controlled. She appears to be euvolemic. Continue current Medications. Mar, Secondary hyperparathyroidism (ICD-10 - N25.81) Calcium within normal limit. We will check PTH and vitamin D. Mar, Osteoporosis (ICD-10 - M81.0) Continue to alendronate and raloxifene. Continue follow with PCP. Mar, Dyslipidemia (ICD-10 - E78.5) Continue [facility]. Monitor LFTs and lipid profile periodically. [employer] Other Evaluation + Plan note Future Appointments Appointment Date:07/10/2022 11:30:00 AM Scheduled Provider: Location:[facility] Appointment Type:Urology CALL PAT FT Appointment Date:07/17/2022 08:45:00 AM Scheduled Provider: Location:[facility] Appointment Type:Urology FT Diagnostic Tests Pending * Urine Cytology ([facility]) 07/02/22 [facility] evaluation noteNo Assessments Information Available [facility] noteNo [employer] Other Evaluation noteNo assessment information available [facility] Work Phone: [employer] general Narrative - Reported* Type Description Date Medical History HTN Medical History Hypothyroidism Medical History hyperlipidemia Medical History acid reflux Medical History anxiety Medical History PRE DIABETIC Medical History mixed hypercholestolemia Medical History CKD STAGE 3 Medical History INSOMNIA Surgical History hysterectomy, total with BSO Surgical History fallopian tube removed Hospitalization History see above hx Hospitalization History N&V [employer] Other Hisiyvo general Narrative - Reported* Type Description Date [...] History see above hx Hospitalization History N&V [employer] Other Hospital course Narrative No data available for this section [facility] progress note No data available for this section [facility] Summary Purpose Family History Relationship Condition Age at Onset Recorded Date/T belle brother Hypertension Unknown father Unknown Parkinson's disease Unknown Family history of mental disorder Unknown mother Family history of mental disorder Unknown Unknown Hypertension Unknown Advance Directives Advance Directive Response Recorded Date/ Time Advance Directives No November 16 4:06pm Chief Complaint and Reason for Visit Chief Complaint Sinus congestion, he adache Additional Source Comments REASON FOR VISIT (unrecogniz ed section and content) RENAL CKD 3CKD and hyperpara thyroidismNo InformationCKD and HTNCKD and HTNCKD and HTNCKD and HTN Patient Care team informatio n (unrecognized section and content) Team Status: Active Member Role Status Dates LILIANA Guevara Primary Care Provider Active Team Status: Inactive Member Role Status Dates LILIANA Guevara Primary Care Provider Active Start: October 19, 2023 End: October 19, 2023 Marianne Ragsdale APRN Attending Provider Active Start: October 19, 2023 End: October 19, 2023 INFORMATION SOURCE (unrecogn ized section and content) DATE CREATED AUTHOR 07/24/2022 [facility] DATE CREATED AUTHOR AUTHOR'S ORGANIZ ATION 09/05/2022 [facility] Goals (unrecognized section and content) Goals may be documented in a n alternate section FOR RECORDS PERTAINING TO PATIENTS WHO ARE [...] BE BASED ON THE PRIMARY CLINICAL RECORDS. [facility] [employer] [facility]. provides no warranty or guarantee of the accuracy or completeness of information in this document.
[2023-11-07 07:59] LABS: Hematocrit 38.7 % (36.0-48.0); Hemoglobin 11.9 g/dL (12.0-16.0); Mean Corpuscular HGB Conc 30.7 g/dL (29.9-35.2); Mean Corpuscular Hemoglobin 27.2 pg (26.7-34.0); Mean Corpuscular Volume 88.4 fL (81.0-99.0); Mean Platelet Volume 12.6 fL (9.5-13.5); Platelet Count 163 10^3/uL (150-450); Red Blood Count 4.38 10^6/uL (4.20-5.40); Red Cell Distribution Width 13.8 % (11.0-15.0); White Blood Count 7.5 10^3/uL (4.0-11.0)
[2023-11-07 08:00] LABS: Bilirubin Urine NEGATIVE (NEGATIVE); Blood Urine SMALL (NEGATIVE); Clarity Urine CLEAR (CLEAR); Color Urine LT. YELLOW (YELLOW); Glucose Urine UA NEGATIVE (NEGATIVE); Ketones Urine NEGATIVE (NEGATIVE); Leukocyte Esterase Urine MODERATE (NEGATIVE); Nitrite Urine NEGATIVE (NEGATIVE); Protein Urine TRACE mg/dL (NEG/TRACE); Specific Gravity Urine >=1.030 (1.005-1.025); Urobilinogen Urine 0.2 EU/dL (0.2-1.0)
[2023-11-07 08:12] LABS: Bacteria Urine SMALL #/HPF (NONE SEEN); Mucus Urine SMALL (NONE SEEN); RBC Urine 0-2 #/HPF (0-2)
[2023-11-07 08:13] LABS: Cast Seen? SEEN #/LPF (NONE SEEN); Crystals Seen? None Seen #/HPF (None Seen); Hyaline Casts Urine RARE; Squamous Epithelial Cell Urine MANY #/LPF (NONE/RARE); Transitional Epi Cells Urine MANY #/LPF (NONE SEEN)
[2023-11-07 09:30] LABS: Albumin Level 3.1 g/dL (3.4-5.0); Anion Gap 12.9; BUN Creatinine Ratio 14.4; Calcium 8.7 mg/dL (8.5-10.1); Carbon Dioxide 28.9 mmol/L (21.0-32.0); Chloride 103 mmol/L (98-107); Estimated GFR (African America 43 (>=60); Estimated GFR (Non-African Ame 35 (>=60); Glucose 100 mg/dL (74-106); Magnesium 1.6 mg/dL (1.8-2.4); Phosphorus 3.2 mg/dL (2.6-4.7); Potassium 3.8 mmol/L (3.5-5.1); Sodium 141 mmol/L (136-145); Uric Acid 5.3 mg/dL (2.6-6.0)
[2023-11-08 11:09] LABS: PTH, Intact 70 pg/mL (15-65)
== END 2023-11-07 07:40 | disposition home or self-care (01) ==
LOC: LAB 07:40
PROVIDERS: PCP Nurse Practitioner Family; Visit Provider Internal Medicine
DX: I12.9 Hypertensive chronic kidney disease with stage 1 through stage 4 chronic kidney disease, or unspecified chronic kidney disease (principal); N18.32 Chronic kidney disease, stage 3b; N25.81 Secondary hyperparathyroidism of renal origin; E78.5 Hyperlipidemia, unspecified
CPT/HCPCS: 36415; 80069; 81001; 82306; 83735; 83970; 84550; 85027

== ENCOUNTER 2023-12-10 15:37 | Outpatient (OUT) | payer MEDICARE, SELFPAY ==
--- NOTE | 2023-12-10 15:42 | CT_ITS ---
The [address] [address] Patient Name: KAREEN HADLEY MRN: [id number] date: 1950 Sex: F Assigned Patient Location: CT Current Patient Location: Accession/Order Number: [id number] Exam Date: 12/10/2023 15:49 Report Date: 12/11/2023 06:14 At the request of: APRIL ZIMMERMAN Procedure: CT chest wo con EXAMINATION: CT chest wo con HISTORY: Pulmonary Coccidioidomycosis COMPARISON: CT chest 06/17/2023 TECHNIQUE: Axial, Coronal, and Sagittal images were created without the administration of IV contrast material. Dose reduction techniques were achieved by using automated exposure control and/or adjustment of mA and/or kV according to patient size and/or use of iterative reconstruction technique. FINDINGS: LUNGS: 11 mm nodule with adjacent opacity within right middle lobe and to the nearby 3-4 mm nodules. Clearing of left apical opacities seen on prior study. PLEURA: No mass, effusion, or pneumothorax. VASCULATURE: No abnormality. KATY: No mass or pathologic adenopathy. MEDIASTINUM: Stable mild adenopathy. CARDIAC: No enlargement, pericardial thickening, or pericardial effusion. Coronary Artery calcifications: AORTA: No aneurysm or dissection. CHEST WALL: No mass or axillary adenopathy BONES: No bone lesion or fracture. LIMITED ABDOMEN: Small hiatal hernia. Large stone within gallbladder. Grossly stable bilateral renal cysts. Limited images of the upper abdomen. OTHER: Negative. CT/CT chest wo con IMPRESSION: 1. Further decrease in size of right middle lobe infiltrates/nodules. 2. Clearing of previously seen left apical opacity. 3. Cholelithiasis. Electronically authenticated by: STEPHEN ROBLES Date: 12/11/2023 06:14
--- OUTSIDE RECORDS SUMMARY | 2023-12-10 15:49 | XMS_ITS | CCD ---
Author Organization [facility]ini[facility]ma Care Team Providers Care Box Loader Name Role Phone Audie Truong Unavailable DAYANA PEPPER Primary Care Physician [phone] MD AUDIE TRUONG Referring Unavailable Iván TOMLIN Attending Unavailable KELLY, Iván Hsu Referring Unavailable Iván TOMLIN Attending Unavailable Iván TOMLIN Admitting Unavailable JOHN, DAYANA Attending Unavailable JOHN, DAYANA Admitting Unavailable JOHN, DAYANA Primary Care Unavailable JOHN, DAYANA Consulting Unavailable JOHN, DAYANA Attending Unavailable JOHN, DAYANA Admitting Unavailable JOHN, DAYANA Primary Care Unavailable TOMLIN ., DR FALOCN Admitting Unavailable TOMLIN ., DR FALCON Consulting Unavailable TOMLIN ., DR FALCON Attending Unavailable JOHN, DAYANA Primary Care Unavailable Danielle Cam Consulting Unavailable JOHN, DAYANA Primary Care Unavailable DIONNE, AUDIE Admitting Unavailable DIONNE, AUDIE Consulting Unavailable DIONNE, AUDIE Attending Unavailable JOHN, DAYANA Attending Unavailable UTE, DR MONTENEGRO Referring Unavailable JOHN, DAYANA Admitting Unavailable JOHN, DAYAAN Primary Care Unavailable STEPHEN ROBLES Consulting Unavailable DAYANA LOPEZ Consulting Unavailable DIONNE, AUDIE Admitting Unavailable DIONNE, AUDIE Consulting Unavailable DIONNE, AUDIE Attending Unavailable JOHN, DAYANA Primary Care Unavailable Allergies Allergy Classification Reported Allergen(s) Allergy Type Date of Onset Reaction(s) Facility (1 source) No Known Medication Allergies; Translations: [No Known Medication Allergies] Propensity to adverse reactions (disorder) [facility] Repository Medications Current Medications Medication Drug Class(es) Dates Sig (Normalized) Sig (Original) alendronic acid 70 mg oral tablet (9 sources) Bisphosphonate Start: 10-19-2023 take 70 mg [...] hydrochloride 300 mg extended release oral tablet (9 sources) Aminoketone Start: 10-19-2023 take 300 mg by mouth once daily Bupropion Hcl Active 300 MG PO Daily October 19, 2023 12:00am take 1 tablet by lester th every twenty-four hours buPROPion HCl ER (XL) 300 MG 1 tablet in the morning Orally Once a day Active calcium carbonate 1500 mg oral tablet (2 sources) Start: 10-19-2023 Calcium Carbonate (Calcium 600) 600 mg calcium (1,500 mg) tablet Active 1200 MG PO Daily October 19, 2023 12:00am cetirizine hydrochloride 10 mg oral tablet (4 sources) Histamine-1 Receptor Antagonist take 1 tablet by mouth every twenty-four hours Cetirizine HCl 10 MG 1 tablet Orally Once a day Active cholecalciferol 0.05 mg oral capsule (2 sources) Vitamin D Start: 10-19-2023 take 50 ug [...] a day Active fluticasone 0.05 mg/inh Nasal [place] (2 sources) Start: 01-01-2019 take 2 spray(s) nasal route once daily fluticasone 0.05 mg/inh Nasal [place] 2 spray(s), Nasal, Daily, each nostril Start [...] Ordered levothyroxine sodium 0.15 mg oral tablet (11 sources) l-Thyrox ine Start: 10-19-2023 take 150 ug by mouth once daily Levothyroxine Active 150 MCG PO Daily October 19, 2023 12:00am Start: 01-01-2019 take 1 capsule by mo [facility] once daily levothyroxine 125 mcg (0.125 [...] Active losartan potassium 100 mg oral tablet (11 sources) Angiotensin 2 Receptor Reinier Start: 10-19-2023 take 100 mg by mouth once daily Losartan Active 100 MG PO Daily October 19, 2023 12:00am Start: 01-01-2019 take 1 tablet by mouth once da tc losartan 100 mg Tab 100 mg = 1 tab(s), Oral, Daily Start Date: 01/01/19 Status: Ordered lovastatin 40 mg oral tablet (11 sources) HMG-CoA Reductase Inhibitor Start: 10-19-2023 take 40 mg by mouth once daily Lovastatin Active 40 MG PO Daily October 19, 2023 12:00am Start: 01-01-2019 take 1 tablet by lester th once daily lovastatin 40 mg Tab 40 mg = 1 tab(s), Oral, Daily Start Date: 01/01/19 Status: Ordered magnesium oxide 400 mg oral capsule (1 source) Start: 11-11-2023 take 400 mg by mouth once daily Magnesium Oxide Active 400 MG PO Daily November 11, 2023 12:00am methylsulfonylmethane 500 mg oral capsule (1 source) [...] Status: Ordered montelukast 10 mg oral tablet (11 sources) Leukotriene Receptor Antagonist Start: 10-19-2023 take 1 tablet by mouth once daily [...] omeprazole 40 mg delayed release oral capsule (9 sources) Proton Pump Inhibitor Start: take 40 [...] Active raloxifene hydrochloride 60 mg oral tablet (9 sources) Estrogen Agonist/Antagonis t Start: 10-19-2023 take [...] Drug Class(es) Dates Sig (Normalized) Sig (Original) amoxicillin 875 mg / clavulanate 125 mg oral tablet (1 source) Penicillin-class Antibacterial Start: 10-19-2023 End: 11-11-2023 take 1 tablet by mouth every twelve hours Amoxicillin-Pot Clavulanate Discontinued 1 TAB PO Every 12 hours 08 02October 19, 2023 12:00am November 11, 2023 1:01pm ciprofloxacin 500 mg oral tablet (2 sources) Quinolone Antimicrobial Start: 07-02-2022 take 1 tablet by mouth once daily Cipro 500 mg Tab 500 mg = 1 tab(s), Oral, Daily, Take 1 tablet the day before the procedure and 1 tablet after the procedure, # 2 tab(s), Refills(s) 0, Pharmacy: [facility]/pharmacy #[id number], 162, cm, 07/02/22 14:24:00 [...] Biliary calculus 01-06-2019 Episodic Chronic kidney disease (18 sources) Chronic kidney disease stage 3; Translations: [Chronic kidney disease, stage 3 (moderate)] 11-09-2023 Chronic Chronic kidney disease (14 sources) Chronic [...] Episodic Hypertension with complications and secondary hypertension (20 sources) Chronic kidney disease due to hypertension; [...] Chronic Other diseases of kidney and ureters (8 sources) Secondary hyperparathyroidism; Translations: [Secondary hyperparathyroidism of renal origin] 11-09-2023 Chronic Other diseases of kidney and ureters (8 sources) Secondary hyperparathyroidism of renal origin; Translations: [Secondary hyperparathyroidism (of renal origin)] Onset: 1 Resolved: 2 Chronic Other diseases [...] index 30+ - obesity 01-06-2019 Chronic Other nutritional; endocrine; and metabolic disorders (1 source) Hypomagnesemia; Translations: [Hypomagnesemia] 11-09-2023 Chronic Other nutritional; endocrine; and metabolic disorders (1 source) Hypomagnesemia; Translations: [Disorders of magnesium metabolism] 11-11-2023 Chronic Other screening for suspected conditions (not mental disorders or infectious disease) (2 sources) CT of abdomen abnormal 01-06-2019 Episodic Other upper respiratory infections (4 sources) Chronic sinusitis, unspecified; Translations: [CHRONIC SINUSITIS UNSPECIFIED] Onset: 2 Chronic Other upper respiratory infections (2 sources) Acute maxillary sinusitis; Translations: [Acute maxillary sinusitis, unspecified] 10-19-2023 Episodic Thyroid disorders (9 sources) Hypothyroidism; Translations: [Hypothyroidism, unspecified] 01-06-2019 Chronic Past or Other Problems Problem Classification Problem Date Documented Da te Episodic/Chronic Deficiency and other anemia (1 source) Anemia, unspecified; Translations: [ANEMIA UNSPECIFIED] Onset: 11-17-2021 Episodic Results Test Name Value Interpretation Reference Range Facility Erythrocyte distribution wid th Auto (RBC) [Ratio]on 11-07-2023 Erythrocyte distribution width (RBC) [Ratio] 13.8 % 11.0-15.0 [facility] Estimated glomerular filtrat ion rate (GFR) non- Americanon 11-07-2023 GFR/1.73 sq M.predicted among non-blacks MDRD (S/P/Bld) [Vol rate/Area] 35 mL/min/{1.73_m2} Low >=60 [facility] Hematocrit Auto (Bld) [Volum e fraction]on 11-07-2023 Hematocrit (Bld) [Volume fraction] 38.7 % 36.0-48.0 [facility] Hemoglobin [Mass/volume] in Bloodon 11-07-2023 Hemoglobin (Bld) [Mass/Vol] 11.9 g/dL Low 12.0-16.0 [facility] Laboratory - Chemistry and C hemistry - challengeon 11-07-2023 Albumin [Mass/Vol] 3.1 g/dL Low 3.4-5.0 [facility] Calcium [Mass/Vol] 8.7 mg/dL 8.5-10.1 [facility] Chloride [Moles/Vol] 103 mmol/L 98-107 [facility] CO2 [Moles/Vol] 28.9 mmol/L 21.0-32.0 [facility] Creatinine [Mass/Vol] 1.46 mg/dL High 0.55-1.02 [facility] GFR/1.73 sq M.predicted MDRD (S/P/Bld) [Vol rate/Area] 43 mL/min/{1.73_m2} Low >=60 [facility] Glucose [Mass/Vol] 100 mg/dL 74-106 [facility] Magnesium [Mass/Vol] 1.6 mg/dL Low 1.8-2.4 [facility] Potassium [Moles/Vol] 3.8 mmol/L 3.5-5.1 [facility] Sodium [Moles/Vol] 141 mmol/L 136-145 [facility] Urate [Mass/Vol] 5.3 mg/dL 2.6-6.0 [facility] Urea nitrogen [Mass/Vol] 21.0 mg/dL High 7.0-18.0 [facility] Urea nitrogen/Creatinine [Mass ratio] 14.4 mg/mg [facility] Bilirubin Ql (U) Negative NEGATIVE [facility] Glucose (U) [Mass/Vol] Negative NEGATIVE [facility] Ketones Ql (U) Negative NEGATIVE [facility] pH (U) 6.0 [pH] 5.0-9.0 [facility] Specific gravity (U) [Rel density] >=1.030 Abnormal 1.005-1.025 [facility] Urobilinogen Qn (U) 0.2 {Mikel'U}/dL 0.2-1.0 [facility] Laboratory - Specimen inform ationon 11-07-2023 Appearance (U) CLEAR CLEAR [facility] Color (U) LT. YELLOW YELLOW [facility] Laboratory - Urinalysison Hyaline casts LM Ql (Urine sed) RARE [facility] Leukocyte esterase Test strip Ql (U) MODERATE Abnormal NEGATIVE [facility] Mucus Ql (Urine sed) SMALL Abnormal NONE SEEN [facility] Nitrite Ql (U) Negative NEGATIVE [facility] Protein Ql (U) TRACE mg/dL NEG/TRACE [facility] Leukocytes [#/volume] correc milagros for nucleated erythrocytes in Blood by Automated counon 11-07-2023 WBC corrected for nucl RBC Auto (Bld) [#/Vol] 7.5 10 3/uL 4.0-11.0 [facility] MCH Auto (RBC) [Entitic mass ]on 11-07-2023 MCH (RBC) [Entitic mass] 27.2 pg 26.7-34.0 [facility] MCHC Auto (RBC) [Mass/Vol]on 11-07-2023 MCHC (RBC) [Mass/Vol] 30.7 g/dL 29.9-35.2 [facility] MCV Auto (RBC) [Entitic vol] on 07-18-2024 MCV (RBC) [Entitic vol] 88.4 fL 81.0-99.0 [facility] No Panel Informationon 11-06 25-Hydroxy Vitamin D Total 83.6 ng/mL [facility] Comment on above: <20 ng/mL Vit D defi cient20-<30 ng/mL Vit D iepzkoijbiih66-971 ng/mL Vit D sufficient>100 ng/mL Potential Toxicity Parathyroid Hormone (Intact) 70 pg/mL Abnormal 15-65 [facility] Comment on above: Performed at: - [employer] [address] [id number] Director: Rich Camejo PhD, Phone: [phone] Phosphorus Level 3.2 mg/dL 2.6-4.7 [facility] Urine Bacteria SMALL #/HPF Abnormal NONE SEEN [facility] Urine Occult Blood SMALL Abnormal NEGATIVE [facility] Urine Other Casts SEEN #/LPF Abnormal NONE SEEN [facility] Urine Other Crystals None Seen #/HPF None Seen [facility] Urine RBC 0-2 #/HPF 0-2 [facility] Urine Squamous Epithelial Cells MANY #/LPF Abnormal NONE/RARE [facility] Urine Transitional Epithelial Cells MANY #/LPF Abnormal NONE SEEN [facility] Urine WBC 10-20 #/HPF Abnormal NONE SEEN [facility] Platelet mean volume Auto (B ld) [Entitic vol]on 11-07-2023 Platelet mean volume (Bld) [Entitic vol] 12.6 fL 9.5-13.5 [facility] Platelets Auto (Bld) [#/Vol] on 11-07-2023 Platelets (Bld) [#/Vol] 163 10 3/uL 150-450 [facility] RBC Auto (Bld) [#/Vol]on RBC (Bld) [#/Vol] 4.38 10 6/uL 4.20-5.40 [facility] Serum or plasma anion gap de terminationon 11-07-2023 Anion gap [Moles/Vol] 12.9 mmol/L [facility] Coding Summary.on 07-19-2022 Coding Summary. CD:[id number] Ww+PGhlYWQ+UX4LOSGgK 49udBDplB2oP3HZFUqWT ywgQVBQTElOSyIgbmFtZ D3jfQQlNVZd IC8+IJ1uSNBfLlbskDKp a5Y7sFK7E07qnk7iTWpm jOY6ZFVfMlRyofysb7yd aXt1YTeiWwfuYhYq MEHomR40NIE0tP80Dq56 fFDxqESgr3gzjSj8RgBh HZTwJUF4cVrgQXowa1Ag FJHxM29rdYWmr5I4 IGNvbGxhcHNlOyBlbXB0 sA7nMOwqwmhjn8vsucjc Izu0rp87zRFxw7H7kBZ1 Y9HpbtN5MIVhgRYo NzzkdFIBnD1zckgel1cw dhxjQpRfECPeTJb3OEe5 HLGcwAmlLeUsDX66QUJ0 NJOdohSmC4IcMQRm vYzqBcA7s9X9Ce4XI6QX YdldQ8HUMMTXGUbveWU+ JG76qu95X8UdNopzUlr3 RLKoHRM6jXA8iI1f ZSVbBJzqn1Z6dFA1N4Iq jfGpyz4mb1yyNMXmDPae M05qeHMpw3S9MQNciSJ5 YIEswZndTlKrkQ85 Oyc+XDOqpVjtz0AaVswe h2hfr2ojzCj1VnzaYRBn yeNbhQqxFHS7e3YxSo5t TOFmrKW6wWQ6gK2k HwHvEsF7KGleW552ExXb aOCoNnkfS96jF4PqbVF+ MDTxGbc5RYEzdBzoUC7d J6TqPYCutqxuyMKa rLiwHP2dJGWseszaBQYv xQ1iMFWcY4p3DkPgIuF4 IZdzE4GsNKHavuiwQu32 gD4uEdLwPuM4QYqs M0XlprE1LLYxnQFsJFjy BVG0T65zs1Z3KMUjMPEx YLU2fBV9vP5vlPluktea bGVmdDsgdmVydGlj WRvwAFmnE556YMKvxYdg PkNvZGluZyBEYXRlOiAg MDMvMzAvMjAyMzwvdGQ+ MTNkTZI7rNdkGEEu vTBfAIgcWe7yxDkwtViq GE1oDFYingumMFRntP4e XAQpiLGpyWslQL3xGRPv nsxez670YzGeYRI6 FCHirLZvZ7CcsO0iHaJf JZPkGIBcD4FdlCCrMRla U540TDwwUyV7WFTyusBi E5DrZUFgbXtlUsN2 n7C0Wz3Ve3OwbdqhC2No tGWxRoOzBuaeOBa8L8Fn PjwvdHI+OC87YRZkMY68 SCi0AZR6yHcwHRod BAVbB0OnwB8zQkRbBUKd ZGRkOyc+PHRhYmxlIHdp ZHRoPScxMDAlJyBzdHls YT2fCi4zYAUrWDCm zGolwKMjWaWjh9foKMDq RKuyYD5usBuzK0KwkUA2 CRBbe4n5Kq61D58tX8Uh dXA+UCLuhXD5pUH6 kG7fLrQsAvF2TXmuA804 KoHdsVUxJdgtp2ewt5tf lVn1TgI7OVFudvQapMkw SLB9q9TbWv39G74r IHdpZHRoPSIxNSUiIHZh aRhebn9enA5lIh3+PGNv bJH7wSD6rO7qAeGmPaP9 YStrR292JpBpjBZm Gdudp6htr9kkmBx5YjSd TGEjfuVvaKufDHP2q0Ia Gg20X9WlnXhln5JwNps6 uw85zKRgb6Z2fZJ6 B8LjQTJvtjdthTDhoXud KN5aTTUvfttnXZYvwH7r HMMoC3h1PhUtFnQ2HVjl A7NnowJ8NELstOBi AKUwpQBKrD1cclshp4af ebfvUsOmYGQuNRn0POe8 YTMmtHceKtOySAH2XeI6 SDI9zDMmlS8zlQmy voadwX7yEab+WUS0tFCt qTTWWX4mWycdyWD+PHRk TZK9uSchPHnfMQTnuQ3i RJVdR0w3ZbKuIaK8 JUzfL4UzznF5UHEsxTTj ZETmxCTIwN2etzfrr6ek hcyiYqLePHOkXWt2VKv0 LWFsaWduOiBsZWZ0 FkR4ZNP9gZBevW2xrIqr cmzxvF8pZpa+QmlydGgg IPO0JFu1H2YzQlq9BEPf oLghRW3ooBJwTNwv Qp8aoPmttLrxMK8wIWJe jerrk623WxEfh6fsEDTj iUTvFFrpQVQ3P38rw3Q4 NEWsNJUxNOZ4hGH2 wS2szYejnsykuMNrbRqf msCxcPydNBshALhpB687 YXBcmDjtUnCfSOc5X8Hc Cfi1YJNqhHtnQW3q zPScLZwcNv7dcBaotRpq PZ4dLZPuzlrgl235QvAc o5ohYBGvwWIbXXjpSTW5 Z17mj8J2XPGkYKUn UZS9qUV2tB7ryNgrnfwl bGVmdDsgdmVydGljYWwt JAruD542UCDeeUemPuDx aUm4Y7NoJdm6KKAv eNlkTC7xwHVbBHxuLm7z lBkkkHroJL3gXLWwzamy q169GiPts5fnHNGnkYJb BFnlYHJ0S48nk4W8 YTTmSPKuLXI1cYP1kC0l bGlnbjogbGVmdDsgdmVy aRryAVwjDQciO400ETJh cDsnPlBhdGllbnQg DJagZEw7F8OjApjoeYK+ NL47JGYaSN46sOVnaTJr m2yszSd2LlApWKWdMEA7 aOehKQuvy6ImIZCx F81csDYyq6R9MMRchNec nERgCzEgiSP3aD9yJXek dmpbf1kjyvliDxbfr2mi sx01nK88M78kCTrf ZHRoPSIzMCUiIHZhbGln cc5qxN4yMe8+PGNvbCB3 kDZ6rB5aZBHqPqJ4HWir F016IfBepPZqYvry t7uxg4euvKg3DrN3VCZx baCzgVjzLLH5i7SxIj40 G14oVVgwYFPaNJHhUXWl NEDzzDxsqy8dbM3y Ii8+QSRxoQU8rQT8oH4c ZiPvAtO9RTloQ698XmQs tHJsOhohR36dB4VpnSD+ DPVfGzr2BJMycQfh IG9dzLOzDTqqQc4mBEM0 HvUmXvPtYDdpU2VgEJBz gfozdkuanUB7EIUdSEVd tJ35Ys8qlWjnTZTy iLEFpA3odnnhn6adknjn DnKlQRNcAQe7UCk3FCIg vKlmEsXcAAG7LuG7WWW7 gQYjsP5arLwmvaei hP8cA9CoXIWgtqqcDa38 mZ5zWtQzExJ8FOkpRct+ P3IOHbDOITOTZZZLU7VJ TkUgQTwvdGQ+PHRk TPT1cAkuCQcbJYBkhN7f PWUtE4u7RcKxVeM3QCbp R8WpJVCevybeEx19dO3c OsUvZwR1DRtuU7Cn udC9BIZvdEYmINujWPH8 T84bd1R1FWFcUMExSPE3 tVD3uQ1rtEyjlzbqaAFd dDsgdmVydGljYWwt JHzuG281BCRgjAimXlGx FwVjIvA5IWH9J6SmObr2 TCXjrQxmOI0mxGNkPFhh Xh7gzOiixTetGH6j NARdxqioTTXtxI9xECNy pVHsxSntPA1lLKKjvudq k676PdJoQZC0WKMvoDCu K0GswR4sZzSyWWId OOUlN5PciCNiERebK095 MEcuDxH0TOBynbDbX1Si LKUzwZdzWpE9d2F4Wp47 MCBZZWFyczwvdGQ+ SIDdLHK1oPjgRWbwDMTl nS6iQZWzV2t2ErBvRuP2 YQtpY2WmRPLvfuvyYg75 lP1nHcLqQzO4MDcq K7RjtuU0OAQwzACbCNfq NAW0V92oq3J4SLMtNWTf BYZ9zDP0oU4tgDtqaxkj bGVmdDsgdmVydGlj GYcrWVagF107WXDznScv PkZlbWFsZTwvdGQ+PHRk LRP8qFmgKNtrUNIpnS2k GOEwA5a9LqBsDvZ9 YXxtH0MkYANzsntjNy55 wT1nXiGjBwE1TCgqP0Xx xtK7LRWszIGxKOwkVAN9 P03wx7S6QRLfMJGl RWE9fMK5sQ1umXnilkbj bGVmdDsgdmVydGljYWwt DYmhS225IZYqaHpoLd96 nKEkdRinlyG3S6Nk PjwvdHI+CH81QJMpTV64 fSGymMQhl0srgLh1QhIy EWLiTVO4oOquZCwtd9Or FKNeR48kmYBop7U0 IGNvbGxhcHNlOyBlbXB0 bH1cRZzbvxcqk4kwhznt Kpmwq9hdle57qU82Z94g IHdpZHRoPSIzMCUi JWIqyMbipe0ndE3eVl6+ CIJrbLL0pHL2eS3zTwNj SdW9KGisI961LkOqsKWs Witfw9vns9npzHu0 IjIwJSIgdmFsaWduPSJ0 e0UmMv68D58gVDirDHBy JWHpWIDjDLWyqQwuvt2g cI3wBd9+JW1vq5jw tw16jM50xLC+PHRkIHN0 jUgkQBhmQHValA7fDAhx RmL3KSUsExOahL30fYNr VGuiKd3hnVpvlNfd AP4fZLIyqcike273CdKi v1mpZZYeyHXjUKzhZOA3 P11sk1R0ZREeAXEkNNV7 bLS5sL9daBbkgkjs bGVmdDsgdmVydGljYWwt GFmhC826VVNhvXqpQuWf wJQcF5rqwwEXYK7kTmdx dGQ+DVSiXOS6wTxx IEagEMLzkX3rLIZsY1z7 MzXrGcK5DWcqP6JqejA8 XUUujTBfFURkrYMIjE3f ygbbk5dyhkncRyCo RRSaDZf8MXz8IUMqaPwr LxBeHJY1RhC4HIM2jDHj xN3npDamiozogH1eLtz+ RklOOjwvdGQ+PHRk KVY7zNyeEBezUASauF9g UOGqI0o9WgBaWlT5IJvr L4FqvgY9RXSayBNrPBFr pDSPzE5gxrjmf5ni vahoYbFaSSLiSEn3SSl2 AWZytSipSnMgAUU2OmV9 CYK9eCXigR3yuLdkjdve zJ1wQka+TVJOOjwv dGQ+INQwRFO7oQgbPDzp CVAltF3gFSDvI3v8AnHo QnA7BHslC0TemuH4DCRy lZJuHUDhhMKFfN0d bnoie0xcedvuZwMiIGHz TRk8EGd8DUFrsNjoHvJp TGY7QvC4RSV7hRUhfD1u bDvrszxedU5uHeu+ DXV4BIU6VQ72GD16Y7Wb PjwvdGFibGU+PHRhYmxl IHdpZHRoPScxMDAlJyBz qLrcTS1cSg0lOFXo LWNvbGxh (more content not included)... [facility] Consent for Procedure/Surger yon 07-17-2022 Consent for Procedure/Surgery [id number]#1.00CD:127 [facility] Consent for Treatmenton 03-2 Consent for Treatment [id number] #1.00CD:127 [facility] IntraOperative Documentson 0 07-17-2022 IntraOperative Documents [id number] 2#1.00CD:127 [facility] Main OR Intraoperative Recor don 07-17-2022 Main OR Intraoperative Record IntraOp Document Type FTURO Summary Primary Physician: Iván TOMLIN MD Finalized Date/Time: 07/17/22 09:10:19 Pt. Name: PEG HADLEY/Sex: 1950 Female Med Rec #: [id number] Physician: Iván TOMLIN MD Financial #: [id number] Pt. Type: O Room/Bed: / Admit/Disch: 07/17/22 [...] Palma Ko Role Performed Surgeon - Primary Tie Layer - Primary Scrub - Primary Time In 07/17/22 09:02:00 07/17/22 09:02:00 07/17/22 09:02:00 Time Out 07/17/22 09:15:00 07/17/22 09:15:00 07/17/22 09:15:00 Procedure CYSTOSCOPY LOCAL(.) CYSTOSCOPY LOCAL(.) CYSTOSCOPY LOCAL(.) Comments Last Modified By: Kusum BELL, KRISTIANOR, Kusum BELL, KRISTIANOR, Kusum BELL, KRISTIANOR, Stefani [...] Kusum BELL, CNOR, Applicable) Lorraine Ko CST, Julie A Time [...] DEDRA Noe RN, Ruthann 07/17/22 09:10 Normal [facility] Main OR Preoperative Recordo n 07-17-2022 Main OR Preoperative Record Holding Area Document Type FTURO Summary Primary Physician: Iván TOMLIN MD Finalized Date/Time: 07/17/22 09:04:54 Pt. Name: PEG HADLEY/Sex: 1950 Female Med Rec #: [id number] Physician: Iván TOMLIN MD Financial #: [id number] Pt. Type: O Room/Bed: / Admit/Disch: 07/17/22 [...] No Pain Comment: na Skin Integrity Intact, [place], Warm, & Dry Vitals - EU Blood Pressure 135/82 Pulse 65 bpm Respirations 16 br/min SPO2 96 % RN Reviewed Yes Last Modified By: DEDRA Noe RN, Ruthann 07/17/22 09:04:49 General Comments: temp:36.4 Finalized By: DEDRA Noe RN, Ruthann Document Signatures Signed By: Maeve Florian LPN 07/17/22 08:41 DEDRA Noe RN, Ruthann 07/17/22 09:04 Normal [facility] Operative Reporton Operative Report Patient: PEG [...] follow-up on a as needed basis.. Normal [facility] Comment on above: Result Comment: Elec tronically Signed By: Iván TOMLIN MD\Date and Time Signed: 07/17/22 09:13 EDT RAD - Ultrasound Reporton RAD - Ultrasound Report [id number] #1.00CD:127 Normal [facility] Urine Cytology ([facility])on 0 07-09-2022 Urine Cytology Diagnosis Info Invalid Interpretation Code [facility] Comment on above: Result Comment: A:Ur ine,Urine:Voided Interpretation - MicroScopic Description - Adequacy - Gross Description Site ID:A color Light Yellow fixative Alcohol Specimen designated Urine received in alcohol preservative and labeled with the patient?s name, consists of 40ml clear light yellow fluid. Electronically signed by : on: 07/09/2022 15:10:50 Performed By: #### 1 [id number] ####[facility] [address] [place] [address] US KIDNEYSon 07-07-2022 US KIDNEYS EXAM: US [...] by: DANIELLE CAM Date: 2022-07-07 10:33 Normal [facility] Formson 07-03-2022 Forms [id number] #1.00CD:127 Normal [facility] Physician Referralon 023 Physician Referral [id number] #1.00CD:127 Normal [facility] Pre-Certification Formon Pre-Certification Form [id number]#1.00CD:127 Normal [facility] Ambulatory Visit Summaryon 0 07-02-2022 Ambulatory Visit Summary PEG HADLEY :1950 Visit Date:07/02/2022 Ambulatory Visit Instructions Your Diagnosis Microscopic hematuria Tests Performed Urnls Dip Stick Auto w/o Microscopy POC 94829 US Renal -- Results Pending -- Please [...] Tab) fluticasone nasal (fluticasone 0.05 mg/inh Nasal [place]) hyoscyamine (hyoscyamine 0.125 mg oral Tab) levothyroxine [...] [facility] [address], [place] [address]- Medications What How Much When Instructions Unchanged [...] fluticasone nasal (fluticasone 0.05 mg/ inh Nasal [place]) 2 Sprays Nasal Inhalation Every day each [...] Urnls Dip Stick Auto w/o Microscopy POC 23246 (07/02/2022) Bilirubin Urine Dipstick - Negative Blood Urine Dipstick - Trace-lysed Glucose Urine Dipstick - Negative Ketones Urine Dipstick - Negative Leukocytes Urine Dipstick - Negative Nitrite Urine Dipstick - Negative Protein Urine Dipstick - Negative Specific [place] Urine Dipstick - >=1.030 Urine Appearance Urine [...] include: ? (more content not included)... Normal [facility] Patient Educationon 07-03-19 Patient Education Urology [...] these instructions at home: Medicines ? Take muqd-zsx-fugzxcc and prescription medicines only as told by [...] the blood stops without treatment. ? Take cwlc-oqi-pnkhrqn and prescription medicines only as told by your health care provider. ? Drink enough fluid to keep your urine clear or pale yellow. This information is not intended to replace advice given to you by your health care provider. Make sure you discuss any questions you have with your health care provider. Document Released: 04/08/2006 Document Revised: 09/02/2019 Document Reviewed: 05/11/2017 [employer] Patient Education ? 2019 [employer] Normal [facility] Urine Cytology ([facility])on 0 07-02-2022 Method of Extraction Voided Normal [facility] Comment on above: Performed By: #### 1 [id number] ####[facility] [id number] [facility] [place] [address] Number of Jars 1 Invalid Interpretation Code [facility] Comment on above: Performed By: #### 1 [id number] ####[facility] [id number] [facility] [place] [address] Specimen Urine Normal [facility] Comment on above: Performed By: #### 1 [id number] ####[facility] [id number] [facility] [place] [address] Type of Service Technical Only Normal Fi [facility] Comment on above: Performed By: #### 1 [id number] ####[facility] [address] [facility] [place] [address] PTH INTACTon 05-22-2022 PTH, Intact 75 pg/mL Critically high 15-65 [facility] Comment on above: Performed By: #### P THINT #### [facility] [address] [place] [address] Dr. Andrea Mccarthy FERRITINon 05-21-2022 Ferritin [Mass/Vol] 124.0 ng/mL Normal 8.0-252.0 [facility] Comment on above: Performed By: #### U KIM, MG, PHOS #### [facility] [address] [address] [address] Andrea Mccarthy HEMOGRAM AND PLATELon 2022 Hematocrit (Bld) [Volume fraction] 40.1 % Normal 36.0-48.0 [facility] Comment on above: Performed By: #### U KIM, MG, PHOS #### [facility] [address] [place] [address] Dr. Andrea Mccarthy Hemoglobin (Bld) [Mass/Vol] 13.2 g/dL Normal 12.0-16.0 [facility] Comment on above: Performed By: #### U KIM, MG, PHOS #### [facility] [address] [place] [address] Dr. Andrea Mccarthy MCH (RBC) [Entitic mass] 28.0 pg Normal 26.7-34.0 [facility] Comment on above: Performed By: #### U KIM, MG, PHOS #### [facility] [address] [place] [address] Dr. Andrea Mccarthy MCHC (RBC) [Mass/Vol] 32.9 g/dL Normal 29.9-35.2 [facility] Comment on above: Performed By: #### U KIM, MG, PHOS #### [facility] [address] [place] [address] Dr. Andrea Mccarthy MCV (RBC) [Entitic vol] 85.1 fL Normal 81.0-99.0 [facility] Comment on above: Performed By: #### U KIM, MG, PHOS #### [facility] [address] [place] [address] Dr. Andrea Mccarthy PLT 255 103/ul Normal 150-450 [facility] Comment on above: Performed By: #### U KIM, MG, PHOS #### [facility] [address] [place] [address] Dr. Andrea Mccarthy RBC 4.71 106/ul Normal 4.20-5.40 [facility] Comment on above: Performed By: #### U KIM, MG, PHOS #### [facility] [address] [place] [address] Dr. Andrea Mccarthy WBC 5.9 103/ul Normal 4.0-11.0 [facility] Comment on above: Performed By: #### U KIM, MG, PHOS #### [facility] [address] [place] [address] Dr. Andrea Mccarthy IRON AND TIBCon 05-21-2022 % SATURATION 18.5 % Normal [facility] Comment on above: Performed By: #### U KIM, MG, PHOS #### [facility] [address] [address] [address] Andrea Mccarthy Iron [Mass/Vol] 51.0 ug/dL Normal 50.0-170.0 [facility] Comment on above: Performed By: #### U KIM, MG, PHOS #### [facility] [address] [address] [address] Andrea Mccarthy TIBC DIRECT 276.0 ug/dL Normal 250.0-450.0 [facility] Comment on above: Performed By: #### U KIM, MG, PHOS #### [facility] [address] [place] [address] Dr. Andrea Mccarthy MAGNESIUMon 05-21-2022 Magnesium [Mass/Vol] 1.8 mg/dL Normal 1.8-2.4 [facility] Comment on above: Performed By: #### U KIM, MG, PHOS #### [facility] [address] [place] [address] Dr. Andrea Mccarthy RENAL FUNCTION PANELon 05-21 Albumin [Mass/Vol] 3.5 g/dL Normal 3.4-5.0 [facility] Comment on above: Performed By: #### U KIM, MG, PHOS #### [facility] [address] [place] [address] Dr. Andrea Mccarthy Calcium [Mass/Vol] 8.5 mg/dL Normal 8.5-10.1 [facility] Comment on above: Performed By: #### U KIM, MG, PHOS #### [facility] [address] [place] [address] Dr. Andrea Mccarthy Chloride [Moles/Vol] 104 mmol/L Normal 98-107 [facility] Comment on above: Performed By: #### U KIM, MG, PHOS #### [facility] [address] [place] [address] Dr. Andrea Mccarthy CO2 [Moles/Vol] 29.6 mmol/L Normal 21.0-32.0 [facility] Comment on above: Performed By: #### U KIM, MG, PHOS #### [facility] [address] [address] [address] Andrea Mccarthy Creatinine [Mass/Vol] 1.23 mg/dL Critically high 0.55-1.02 [facility] Comment on above: Performed By: #### U KIM, MG, PHOS #### [facility] [address] [place] [address] Dr. Andrea Mccarthy EGFR-AF ECUADOREAN 52 mL/min/1.73m2 Critically low >=60 [facility] Comment on above: Performed By: #### U KIM, MG, PHOS #### [facility] [address] [place] [address] Dr. Andrea Mccarthy EGFR-NON AF ECUADOREAN 43 mL/min/1.73m2 Critically low >=60 [facility] Comment on above: Performed By: #### U KIM, MG, PHOS #### [facility] [address] [place] [address] Dr. Andrea Mccarthy Glucose [Mass/Vol] 92 mg/dL Normal 74-106 [facility] Comment on above: Performed By: #### U KIM, MG, PHOS #### [facility] [address] [place] [address] Dr. Andrea Mccarthy Phosphate [Mass/Vol] 3.3 mg/dL Normal 2.6-4.7 [facility] Comment on above: Performed By: #### U KIM, MG, PHOS #### [facility] [address] [place] [address] Dr. Andrea Mccarthy Potassium [Moles/Vol] 3.9 mmol/L Normal 3.5-5.1 [facility] Comment on above: Performed By: #### U KIM, MG, PHOS #### [facility] [address] [place] [address] Dr. Andrea Mccarthy Sodium [Moles/Vol] 141 mmol/L Normal 136-145 [facility] Comment on above: Performed By: #### U KIM, MG, PHOS #### [facility] [address] [place] [address] Dr. Andrea Mccarthy Urea nitrogen [Mass/Vol] 25.0 mg/dL Critically high 7.0-18.0 [facility] Comment on above: Performed By: #### U KIM, MG, PHOS #### [facility] [address] [place] [address] Dr. Andrea Mccarthy UA RANDOM W/MICROSCOPICon BACTERIA NONE SEEN Normal NONE SEEN [facility] Comment on above: Performed By: #### U AMIC #### [facility] [address] [address] [address] Andrea Mccatrhy Bilirubin Ql (U) Negative Normal NEGATIVE [facility] Comment on above: Performed By: #### U AMIC #### [facility] [address] [place] [address] Dr. Andrea Mccarthy CAST NONE SEEN Normal NONE SEEN [facility] Comment on above: Performed By: #### U AMIC #### [facility] [address] [place] [address] Dr. Andrea Mccarthy Clarity (U) CLEAR Normal CLEAR [facility] Comment on above: Performed By: #### U AMIC #### [facility] [address] [address] [address] Andrea Mccarthy Color (U) YELLOW Normal YELLOW [facility] Comment on above: Performed By: #### U AMIC #### [facility] [address] [place] [address] Dr. Andrea Mccarthy Crystals LM Nom (Urine sed) NONE SEEN Normal NONE SEEN [facility] Comment on above: Performed By: #### U AMIC #### [facility] [address] [place] [address] Dr. Andrea Mccarthy Epithelial cells LM Ql (Urine sed) FEW Abnormal NONE SEEN /RARE [facility] Comment on above: Performed By: #### U AMIC #### [facility] [address] [place] [address] Dr. Andrea Mccarthy Glucose Ql (U) Negative Normal NEGATIVE [facility] Comment on above: Performed By: #### U AMIC #### [facility] [address] [place] [address] Dr. Andrea Mccarthy Hemoglobin Ql (U) TRACE-INTACT Abnormal NEGATIVE [facility] Comment on above: Performed By: #### U AMIC #### [facility] [address] [address] [address] Andrea Mccarthy Ketones Ql (U) Negative Normal NEGATIVE [facility] Comment on above: Performed By: #### U AMIC #### [facility] [address] [address] [address] Andrea Mccarthy LEUKOCYTES Negative Normal NEGATIVE [facility] Comment on above: Performed By: #### U AMIC #### [facility] [address] [address] [address] Andrea Mccarthy MUCOUS TRACE Abnormal NONE SEEN [facility] Comment on above: Performed By: #### U AMIC #### [facility] [address] [place] [address] Dr. Andrea cMcarthy Nitrite Ql (U) Negative Normal NEGATIVE [facility] Comment on above: Performed By: #### U AMIC #### [facility] [address] [place] [address] Dr. Andrea Mccarthy pH (U) 5.0 [pH] Normal 5-9 [facility] Comment on above: Performed By: #### U AMIC #### [facility] [address] [place] [address] Dr. Andrea Mccarthy RBC 0-2 Normal 0-2 [facility] Comment on above: Performed By: #### U AMIC #### [facility] [address] [address] [address] Andrea Mccarthy SPEC GRAVITY 1.025 Normal 1.005-<=1.025 [facility] Comment on above: Performed By: #### U AMIC #### [facility] [address] [address] [address] Andrea Mccarthy UA PROTEIN Negative Normal NEGATIVE/ TRACE [facility] Comment on above: Performed By: #### U AMIC #### [facility] [address] [place] [address] Dr. Andrea Mccarthy Urobilinogen Qn (U) 0.2 {Mikel'U}/dL Normal 0.2 - 1. 0 [facility] Comment on above: Performed By: #### U AMIC #### [facility] [address] [place] [address] Dr. Andrea Mccarthy WBC NONE SEEN Normal NONE SEEN [facility] Comment on above: Performed By: #### U AMIC #### [facility] [address] [address] [address] Andrea Mccarthy URINE T PROTEIN CREAT RATIOo n 05-21-2022 Protein (U) [Mass/Vol] 21.5 mg/dL Critically high <=12.0 [facility] Comment on above: Performed By: #### U KIM, MG, PHOS #### [facility] [address] [place] [address] Dr. Andrea Mccarthy UR PROT CREAT RAT 0.15 Normal [facility] Comment on above: Performed By: #### U KIM, MG, PHOS #### [facility] [address] [place] [address] Dr. Andrea Mccarthy URINE CREAT 144.81 mg/dL Normal 20.00-300.00 [facility] Comment on above: Performed By: #### U KIM, MG, PHOS #### [facility] [address] [place] [address] Dr. Andrea Mccarthy VIT B12 AND FOLATEon 023 Cobalamin (Vitamin B12) [Mass/Vol] 1425.0 pg/mL Critically high 193.0-986.0 [facility] Comment on above: Performed By: #### U KIM, MG, PHOS #### [facility] [address] [place] [address] Dr. Andrea Mccarthy FOLATE 22.60 ng/mL Normal 8.60-58.90 [facility] Comment on above: Performed By: #### U KIM, MG, PHOS #### [facility] [address] [place] [address] SINUSES WO CONon [...] STEPHEN ROBLES Date: 2022-01-01 07:30 Normal [facility] INSULINon 11-15-2021 Insulin 9.0 uIU/mL Normal 2.6-24.9 [facility] Comment on above: Performed By: #### I NSULIN #### [facility] [address] [address] [address] Andrea Mccarthy PTH INTACTon 11-15-2021 PTH, Intact 43 pg/mL Normal 15-65 [facility] Comment on above: Performed By: #### U KIM, MG, PHOS #### [facility] [address] [place], [place] [address] Dr. Andrea Mccarthy VIT D 25-OH LABCORPon 2021 Vitamin D, 25-Hydroxy 85.4 ng/mL Normal 30.0-100.0 [facility] Comment on above: Result Comment: Samina min D deficiency has been defined by the [place] [employer] and an Endocrine Society practice guideline as a level of serum 25-OH vitamin D less than 20 ng/mL (1,2). The Endocrine Society went on to further define vitamin D insufficiency as a level between 21 and 29 ng/mL (2). 1. IOM ([place] [employer]). 2010. Dietary reference intakes for calcium and D. [place]: The National Academies Press. 2. Dagoberto PAUL, Rachel GARDNER, Edilson MARTINEZ, et al. Evaluation, treatment, and prevention of vitamin D deficiency: an Endocrine Society clinical practice guideline. JCEM. 2010; 96(7):1911-30. Performed By: #### V ITADLC #### [facility] [address] [address] [address] Andrea Mccarthy CBC AUTO DIFFon 11-14-2021 BASO # 0.0 103/ul Normal 0.0-0.1 [facility] Comment on above: Performed By: #### U KIM, MG, PHOS #### [facility] [address] [address] [address] Andrea Mccarthy Basophils/100 WBC (Bld) 0.6 % Normal 0.2-2.0 [facility] Comment on above: Performed By: #### U KIM, MG, PHOS #### [facility] [address] [address] [address] Andrea Mccarthy EO # 0.2 103/ul Normal 0.0-0.7 [facility] Comment on above: Performed By: #### U KIM, MG, PHOS #### [facility] [address] [address] [address] Andrea Mccarthy Eosinophils/100 WBC (Bld) 2.4 % Normal 0.9-7.0 [facility] Comment on above: Performed By: #### U KIM, MG, PHOS #### [facility] [address] [address] [address] Andrea Mccarthy Erythrocyte distribution width (RBC) [Ratio] 14.0 % Normal 11.0-15.0 [facility] Comment on above: Performed By: #### U KIM, MG, PHOS #### [facility] [address] [address] [address] Andrea Mccarthy Hematocrit (Bld) [Volume fraction] 35.7 % Critically low 36.0-48.0 [facility] Comment on above: Performed By: #### U KIM, MG, PHOS #### [facility] [address] [place] [address] Dr. Andrea Mccarthy Hemoglobin (Bld) [Mass/Vol] 11.2 g/dL Critically low 12.0-16.0 [facility] Comment on above: Performed By: #### U KIM, MG, PHOS #### [facility] [address] [place] [address] Dr. Andrea Mccarthy IG # 0.02 10e3/ul Normal 0.00-0.03 [facility] Comment on above: Performed By: #### U KIM, MG, PHOS #### [facility] [address] [place] [address] Dr. Andrea Mccarthy IG % 0.3 % Normal 0.0-0.5 [facility] Comment on above: Performed By: #### U KIM, MG, PHOS #### [facility] [address] [place] [address] Dr. Andrea Mccarthy LYMPH # 1.8 103/ul Normal 1.2-3.8 [facility] Comment on above: Performed By: #### U KIM, MG, PHOS #### [facility] [address] [place] [address] Dr. Andrea Mccarthy Lymphocytes/100 WBC (Bld) 24.9 % Normal 20.5-60.0 [facility] Comment on above: Performed By: #### U KIM, MG, PHOS #### [facility] [address] [place] [address] Dr. Andrea Mccarthy MANUAL DIFF REQ NO Normal [facility] Comment on above: Performed By: #### U KIM, MG, PHOS #### [facility] [address] [place] [address] Dr. Andrea Mccarthy MCH (RBC) [Entitic mass] 27.3 pg Normal 26.7-34.0 [facility] Comment on above: Performed By: #### U KIM, MG, PHOS #### [facility] [address] [address] [address] Andrea Mccarthy MCHC (RBC) [Mass/Vol] 31.4 g/dL Normal 29.9-35.2 [facility] Comment on above: Performed By: #### U KIM, MG, PHOS #### [facility] [address] [place] [address] Dr. Andrea Mccarthy MCV (RBC) [Entitic vol] 87.1 fL Normal 81.0-99.0 [facility] Comment on above: Performed By: #### U KIM, MG, PHOS #### [facility] [address] [place] [address] Dr. Andrea Mccarthy MONO # 0.5 103/ul Normal 0.3-0.8 [facility] Comment on above: Performed By: #### U KIM, MG, PHOS #### [facility] [address] [place] [address] Dr. Andrea Mccarthy Monocytes/100 WBC (Bld) 7.0 % Normal 1.7-12.0 [facility] Comment on above: Performed By: #### U KIM, MG, PHOS #### [facility] [address] [place] [address] Dr. Andrea Mccarthy NEUT # 4.7 103/ul Normal 1.4-6.5 [facility] Comment on above: Performed By: #### U KIM, MG, PHOS #### [facility] [address] [place] [address] Dr. Andrea Mccarthy Neutrophils/100 WBC (Bld) 64.8 % Normal 43.0-75.0 [facility] Comment on above: Performed By: #### U KIM, MG, PHOS #### [facility] [address] [place] [address] Dr. Andrea Mccarthy Platelet mean volume (Bld) [Entitic vol] 10.1 fL Normal 9.5-13.5 [facility] Comment on above: Performed By: #### U KIM, MG, PHOS #### [facility] [address] [place] [address] Dr. Andrea Mccarthy PLT 309 103/ul Normal 150-450 [facility] Comment on above: Performed By: #### U KIM, MG, PHOS #### [facility] [address] [address] [address] Andrea Mccarthy RBC 4.10 106/ul Critically low 4.20-5.40 [facility] Comment on above: Performed By: #### U KIM, MG, PHOS #### [facility] [address] [address] [address] Andrea Mccarthy WBC 7.2 103/ul Normal 4.0-11.0 [facility] Comment on above: Performed By: #### U KIM, MG, PHOS #### [facility] [address] [address] [address] Andrea Mccarthy FREE THYROXINE INDEX T7on FTI 4.14 Normal 1.30-4.50 [facility] Comment on above: Performed By: #### U KIM, MG, PHOS #### [facility] [address] [address] [address] Andrea Mccarthy T3U 36.0 % Normal 30.0-39.0 [facility] Comment on above: Performed By: #### U KIM, MG, PHOS #### [facility] [address] [address] [address] Andrea Mccarthy T4 [Mass/Vol] 11.50 ug/dL Normal 4.80-13.90 [facility] Comment on above: Performed By: #### U KIM, MG, PHOS #### [facility] [address] [address] [address] Andrea Mccarthy GLYCOHEMOGLOBIN A1Con 2021 ADA RECOMMENDATION SEE BELOW Normal [facility] Comment on above: Result Comment: ADA RECOMMENDED LIMIT 4.0 - 6.0 ADA THERAPEUTIC TARGET < 7.0 ACTION SUGGESTED > 7.0 Performed By: #### A 1C #### [facility] [address] [place] [address] Dr. Andrea Mccarthy Glucose [Mass/Vol] 137 mg/dL Normal [facility] Comment on above: Performed By: #### A 1C #### [facility] [address] [address] [address] Andrea Mccarthy HbA1c (Bld) [Mass fraction] 6.4 % Critically high 4.5-6.2 [facility] Comment on above: Performed By: #### A 1C #### [facility] [address] [address] [address] Andrea Mccarthy IRONon 11-14-2021 Iron [Mass/Vol] 34.0 ug/dL Critically low 50.0-170.[address] [facility] Comment on above: Performed By: #### U KIM, MG, PHOS #### [facility] [address] [address] [address] Andrea Mccarthy LIPID PROFILEon 11-14-2021 CHOL-HDL RATIO NORM SEE BELOW Normal [facility] Comment on above: Result Comment: 3.3 - 4.4 LOW RISK 4.4 - 7.1 AVERAGE RISK 7.1 - 11.0 MODERATE RISK >11.0 HIGH RISK Performed By: #### L IPID, TSH, T7, CMP #### [facility] [address] [address] [address] Andrea Mccarthy Cholesterol [Mass/Vol] 152 mg/dL Normal <=200 [facility] Comment on above: Performed By: #### L IPID, TSH, T7, CMP #### [facility] [address] [address] [address] Andrea Mccarthy Cholesterol in HDL [Mass/Vol] 51 mg/dL Normal 40-60 [facility] Comment on above: Performed By: #### L IPID, TSH, T7, CMP #### [facility] [address] [address] [address] Andrea Mccarthy Cholesterol in LDL [Mass/Vol] 83.4 mg/dL Normal [facility] Comment on above: Performed By: #### L IPID, TSH, T7, CMP #### [facility] [address] [address] [address] Andrea Mccarthy Cholesterol.total/Ch olesterol in HDL [Mass ratio] 3.0 {ratio} Normal [facility] Comment on above: Performed By: #### L IPID, TSH, T7, CMP #### [facility] [address] [address] [address] Andrea Mccarthy HDL NORMAL > or = 60 mg/dl - LOW CARDIOVASCULAR RISK <40 mg/dl - HIGH CARDIOVASCULAR RISK Normal [facility] Comment on above: Performed By: #### L IPID, TSH, T7, CMP #### [facility] [address] [address] [address] Andrea Mccarthy LDL CALC NORMAL SEE BELOW Normal [facility] Comment on above: Result Comment: <100 mg/dl OPTIMAL 100 - 129 mg/dl NEAR OR ABOVE OPTIMAL 130 - 159 mg/dl BORDERLINE HIGH 160 - 189 mg/dl HIGH >190 mg/dl VERY HIGH Performed By: #### L IPID, TSH, T7, CMP #### [facility] [address] [address] [address] Andrea Mccarthy Triglyceride [Mass/Vol] 88 mg/dL Normal <=150 [facility] Comment on above: Performed By: #### L IPID, TSH, T7, CMP #### [facility] [address] [address] [address] Andrea Mccarthy VLDL CALC 17.6 mg/dL Normal [facility] Comment on above: Performed By: #### L IPID, TSH, T7, CMP #### [facility] [address] [address] [address] Andrea Mccarthy MAGNESIUMon 11-14-2021 Magnesium [Mass/Vol] 2.2 mg/dL Normal 1.8-2.4 [facility] Comment on above: Performed By: #### U KIM, MG, PHOS #### [facility] [address] [address] [address] Andrea Mccarthy PHOSPHORUSon 11-14-2021 Phosphate [Mass/Vol] 3.0 mg/dL Normal 2.6-4.7 [facility] Comment on above: Performed By: #### U KIM, MG, PHOS #### [facility] [address] [address] [address] Andrea Mccarthy PROF 14(COMP METB)on 022 Albumin [Mass/Vol] 3.2 g/dL Critically low 3.4-5.0 [facility] Comment on above: Performed By: #### L IPID, TSH, T7, CMP #### [facility] [address] [place] [address] Dr. Andrea Mccarthy Albumin/Globulin [Mass ratio] 0.8 {ratio} Normal [facility] Comment on above: Performed By: #### L IPID, TSH, T7, CMP #### [facility] [address] [place] [address] Dr. Andrea Mccarthy ALP [Catalytic activity/Vol] 51 U/L Normal 46-116 [facility] Comment on above: Performed By: #### L IPID, TSH, T7, CMP #### [facility] [address] [place] [address] Dr. Andrea Mccarthy ALT [Catalytic activity/Vol] 13 U/L Critically low 14-59 [facility] Comment on above: Performed By: #### L IPID, TSH, T7, CMP #### [facility] [address] [place] [address] Dr. Andrea Mccarthy Anion gap [Moles/Vol] 11.4 mmol/L Normal [facility] Comment on above: Performed By: #### L IPID, TSH, T7, CMP #### [facility] [address] [place] [address] Dr. Andrea Mccarthy AST [Catalytic activity/Vol] 9 U/L Critically low 15-37 [facility] Comment on above: Performed By: #### L IPID, TSH, T7, CMP #### [facility] [address] [place] [address] Dr. Andrea Mccarthy Bilirubin [Mass/Vol] 0.3 mg/dL Normal 0.2-1.0 [facility] Comment on above: Performed By: #### L IPID, TSH, T7, CMP #### [facility] [address] [place] [address] Dr. Andrea Mccarthy Calcium [Mass/Vol] 8.4 mg/dL Critically low 8.5-10.1 [facility] Comment on above: Performed By: #### L IPID, TSH, T7, CMP #### [facility] [address] [address] [address] Andrea Mccarthy Chloride [Moles/Vol] 105 mmol/L Normal 98-107 [facility] Comment on above: Performed By: #### L IPID, TSH, T7, CMP #### [facility] [address] [place] [address] Dr. Andrea Mccarthy CO2 [Moles/Vol] 27.7 mmol/L Normal 21.0-32.0 [facility] Comment on above: Performed By: #### L IPID, TSH, T7, CMP #### [facility] [address] [place] [address] Dr. Andrea Mccarthy Creatinine [Mass/Vol] 1.31 mg/dL Critically high 0.55-1.02 [facility] Comment on above: Performed By: #### L IPID, TSH, T7, CMP #### [facility] [address] [place] [address] Dr. Andrea Mccarthy EGFR-AF ECUADOREAN 49 mL/min/1.73m2 Critically low >=60 [facility] Comment on above: Performed By: #### L IPID, TSH, T7, CMP #### [facility] [address] [place] [address] Dr. Andrea Mccarthy EGFR-NON AF ECUADOREAN 40 mL/min/1.73m2 Critically low >=60 [facility] Comment on above: Performed By: #### L IPID, TSH, T7, CMP #### [facility] [address] [place] [address] Dr. Andrea Mccarthy Globulin (S) [Mass/Vol] 3.9 g/dL Normal [facility] Comment on above: Performed By: #### L IPID, TSH, T7, CMP #### [facility] [address] [place] [address] Dr. Andrea Mccarthy Glucose [Mass/Vol] 97 mg/dL Normal 74-106 [facility] Comment on above: Performed By: #### L IPID, TSH, T7, CMP #### [facility] [address] [place], [place] [id number] Dr. Andrea Mccarthy Potassium [Moles/Vol] 4.1 mmol/L Normal 3.5-5.1 [facility] Comment on above: Performed By: #### L IPID, TSH, T7, CMP #### [facility] [address] [place] [address] Dr. Andrea Mccarthy Protein [Mass/Vol] 7.1 g/dL Normal 6.4-8.2 [facility] Comment on above: Performed By: #### L IPID, TSH, T7, CMP #### [facility] [address] [place] [address] Dr. Andrea Mccarthy Sodium [Moles/Vol] 140 mmol/L Normal 136-145 [facility] Comment on above: Performed By: #### L IPID, TSH, T7, CMP #### [facility] [address] [place] [address] Dr. Andrea Mccarthy Urea nitrogen [Mass/Vol] 23.0 mg/dL Critically high 7.0-18.0 [facility] Comment on above: Performed By: #### L IPID, TSH, T7, CMP #### [facility] [address] [place] [address] Dr. Andrea Mccarthy Urea nitrogen/Creatinine [Mass ratio] 17.6 mg/mg Normal [facility] Comment on above: Performed By: #### L IPID, TSH, T7, CMP #### [facility] [address] [place] [address] Dr. Andrea Mccarthy TSHon 11-14-2021 TSH 0.032 uIU/mL Critically low 0.358-3.740 [facility] Comment on above: Performed By: #### U KIM, MG, PHOS #### [facility] [address] [place] [address] Dr. Andrea Mccarthy UA RANDOM W/MICROSCOPICon BACTERIA NONE SEEN Normal NONE SEEN [facility] Comment on above: Performed By: #### U KIM, MG, PHOS #### [facility] [address] [place] [address] Dr. Andrea Mccarthy Bilirubin Ql (U) Negative Normal NEGATIVE [facility] Comment on above: Performed By: #### U KIM, MG, PHOS #### [facility] [address] [address] [address] Andrea Mccarthy CAST NONE SEEN Normal NONE SEEN [facility] Comment on above: Performed By: #### U KIM, MG, PHOS #### [facility] [address] [address] [address] Andrea Mccarthy Clarity (U) CLEAR Normal CLEAR [facility] Comment on above: Performed By: #### U KIM, MG, PHOS #### [facility] [address] [address] [address] Andrea Mccarthy Color (U) YELLOW Normal YELLOW [facility] Comment on above: Performed By: #### U KIM, MG, PHOS #### [facility] [address] [place] [address] Dr. Andrea Mccarthy Crystals LM Nom (Urine sed) NONE SEEN Normal NONE SEEN [facility] Comment on above: Performed By: #### U KIM, MG, PHOS #### [facility] [address] [place] [address] Dr. Andrea Mccarthy Epithelial cells LM Ql (Urine sed) FEW Abnormal NONE SEEN /RARE [facility] Comment on above: Performed By: #### U KIM, MG, PHOS #### [facility] [address] [place] [address] Dr. Andrea Mccarthy Glucose Ql (U) Negative Normal NEGATIVE [facility] Comment on above: Performed By: #### U KIM, MG, PHOS #### [facility] [address] [place] [address] Dr. Andrea Mccarthy Hemoglobin Ql (U) TRACE-INTACT Abnormal NEGATIVE [facility] Comment on above: Performed By: #### U KIM, MG, PHOS #### [facility] [address] [place] [address] Dr. Andrea Mccarthy Ketones Ql (U) Negative Normal NEGATIVE [facility] Comment on above: Performed By: #### U KIM, MG, PHOS #### [facility] [address] [address] [address] Andrea Mccarthy LEUKOCYTES Negative Normal NEGATIVE [facility] Comment on above: Performed By: #### U KIM, MG, PHOS #### [facility] [address] [address] [address] Andrea Mccarthy MUCOUS SMALL Abnormal NONE SEEN [facility] Comment on above: Performed By: #### U KIM, MG, PHOS #### [facility] [address] [address] [address] Andrea Mccarthy Nitrite Ql (U) Negative Normal NEGATIVE [facility] Comment on above: Performed By: #### U KIM, MG, PHOS #### [facility] [address] [address] [address] Andrea Mccarthy pH (U) 5.5 [pH] Normal 5-9 [facility] Comment on above: Performed By: #### U KIM, MG, PHOS #### [facility] [address] [place] [address] Dr. Andrea Mccarthy RBC 0-2 Normal 0-2 [facility] Comment on above: Performed By: #### U KIM, MG, PHOS #### [facility] [address] [address] [address] Andrea Mccarthy SPEC GRAVITY 1.020 Normal 1.005-<=1.025 [facility] Comment on above: Performed By: #### U KIM, MG, PHOS #### [facility] [address] [place] [address] Dr. Andrea Mccarthy UA PROTEIN Negative Normal NEGATIVE/ TRACE [facility] Comment on above: Performed By: #### U KIM, MG, PHOS #### [facility] [address] [place] [address] Dr. Andrea Mccarthy Urobilinogen Qn (U) 0.2 {Mikel'U}/dL Normal 0.2 - 1. 0 [facility] Comment on above: Performed By: #### U KIM, MG, PHOS #### [facility] [address] [address] [address] Andrea Mccarthy WBC NONE SEEN Normal NONE SEEN [facility] Comment on above: Performed By: #### U KIM, MG, PHOS #### [facility] [address] [address] [address] Andrea Mccarthy URIC ACID SERUMon 11-14-2021 Urate [Mass/Vol] 5.0 mg/dL Normal 2.6-6.0 [facility] Comment on above: Performed By: #### U KIM, MG, PHOS #### [facility] [address] [address] [address] Andrea Mccarthy URINE T PROTEIN CREAT RATIOo n 11-14-2021 Protein (U) [Mass/Vol] 22.3 mg/dL Critically high <=12.0 [facility] Comment on above: Performed By: #### U KIM, MG, PHOS #### [facility] [address] [address] [address] Andrea Mccarthy UR PROT CREAT RAT 0.15 Normal [facility] Comment on above: Performed By: #### U KIM, MG, PHOS #### [facility] [address] [address] [address] Andrea Mccarthy URINE CREAT 151.50 mg/dL Normal 20.00-300.00 [facility] Comment on above: Performed By: #### U KIM, MG, PHOS #### [facility] [address] [address] [address] Andrea Mccarthy Vital Signs Date Time Vital Sign Value Performing Clinician Facility 11-11-2023 12:58-0400 Body height 162.56 cm [facility] 11-11-2023 12:58-0400 Body mass index (BMI) [Ratio] 30 kg/m2 [facility] 11-11-2023 12:58-0400 Body weight 79.37 kg [facility] 11-11-2023 12:58-0400 Diastolic blood pressure 88 mm[Hg] [facility] 11-11-2023 12:58-0400 Systolic blood pressure 136 mm[Hg] [facility] 10-19-2023 12:21-0400 Body height 162.56 cm [facility] 10-19-2023 12:21-0400 Body mass index (BMI) [Ratio] 30.4 kg/m2 [facility] 10-19-2023 12:21-0400 Body temperature 98.3 [degF] [facility] 10-19-2023 12:21-0400 Body weight 80.39 kg [facility] 10-19-2023 12:21-0400 Heart rate 82 /min [facility] 10-19-2023 12:21-0400 Respiratory rate 16 /min [facility] 10-19-2023 12:21-0400 SaO2% (BldA) [Mass fraction] 96 % [facility] 05-21-2023 10:40-0500 Body height 162.56 cm Audie Dionne Other [facility] Other 05-21-2023 10:40-0500 Body mass index (BMI) [Ratio] 29.59 kg/m2 Audie Dionne Other [facility] Other 05-21-2023 10:40-0500 Body temperature 96.3 [degF] Audie Dionne Other [facility] Other 05-21-2023 10:40-0500 Body weight 78.2 kg Audie Dionne Other [facility] Other 05-21-2023 10:40-0500 Diastolic blood pressure 80 mm[Hg] Audie Dionne Other [facility] Other 05-21-2023 10:40-0500 Respiratory rate 18 /min Audie Dionne Other [facility] Other 05-21-2023 10:40-0500 SaO2% (BldA) [Mass fraction] 98 % Audie Dionne Other [facility] Other 05-21-2023 10:40-0500 Systolic blood pressure 118 mm[Hg] Audie Dionne Other [facility] Other 11-19-2022 11:00-0400 Body height 162.56 cm Audie Dionne Other [facility] Other 11-19-2022 11:00-0400 Body mass index (BMI) [Ratio] 28.9 kg/m2 Audie Dionne Other [facility] Other 11-19-2022 11:00-0400 Body temperature 96 [degF] Audie Dionne Other [facility] Other 11-19-2022 11:00-0400 Body weight 76.39 kg Audie Dionne Other [facility] Other 11-19-2022 11:00-0400 Diastolic blood pressure 81 mm[Hg] Audie Dionne Other [facility] Other 11-19-2022 11:00-0400 Respiratory rate 18 /min Audie Dionne Other [facility] Other 11-19-2022 11:00-0400 SaO2% (BldA) [Mass fraction] 98 % Audie Dionne Other [facility] Other 11-19-2022 11:00-0400 Systolic blood pressure 132 mm[Hg] Audie Dionne Other [facility] Other 07-02-2022 14:17-0400 Blood Pressure Location Iván TOMLIN [facility] 07-02-2022 14:17-0400 Diastolic blood pressure 88 mm[Hg] Iván TOMLIN [facility] 07-02-2022 14:17-0400 Heart rate 71 /min Iván TOMLIN [facility] 07-02-2022 14:17-0400 Systolic blood pressure 128 mm[Hg] Iván TOMLIN [facility] 05-29-2022 10:40-0500 Body height 162.56 cm Audie Dionne Other [facility] Other 05-29-2022 10:40-0500 Body mass index (BMI) [Ratio] 28.22 kg/m2 Audie Dionne Other [facility] Other 05-29-2022 10:40-0500 Body temperature 96.3 [degF] Audie Dionne Other [facility] Other 05-29-2022 10:40-0500 Body weight 74.57 kg Audie Dionne Other [facility] Other 05-29-2022 10:40-0500 Diastolic blood pressure 81 mm[Hg] Audie Dionne Other [facility] Other 05-29-2022 10:40-0500 Respiratory rate 18 /min Audie Dionne Other [facility] Other 05-29-2022 10:40-0500 SaO2% (BldA) [Mass fraction] 98 % Audie Dionne Other [facility] Other 05-29-2022 10:40-0500 Systolic blood pressure 125 mm[Hg] Audie Dionne Other [facility] Other 11-21-2021 12:40-0400 Body height 162.56 cm Audie Dionne Other [facility] Other 11-21-2021 12:40-0400 Body mass index (BMI) [Ratio] 28.22 kg/m2 Audie Dionne Other [facility] Other 11-21-2021 12:40-0400 Body temperature 96.8 [degF] Audie Dionne Other [facility] Other 11-21-2021 12:40-0400 Body weight 74.57 kg Audie Dionne Other [facility] Other 11-21-2021 12:40-0400 Diastolic blood pressure 79 mm[Hg] Audie Dionne Other [facility] Other 11-21-2021 12:40-0400 Respiratory rate 18 /min Audie Dionne Other [facility] Other 11-21-2021 12:40-0400 SaO2% (BldA) [Mass fraction] 98 % Audie Dionne Other [facility] Other 11-21-2021 12:40-0400 Systolic blood pressure 117 mm[Hg] Audie Dionne Other [facility] Other 06-01-2021 16:20-0500 Body height 162.56 cm Audie Dionne Other [facility] Other 06-01-2021 16:20-0500 Body mass index (BMI) [Ratio] 30.89 kg/m2 Audie Dionne Other [facility] Other 06-01-2021 16:20-0500 Body temperature 96.5 [degF] Audie Dionne Other [facility] Other 06-01-2021 16:20-0500 Body weight 81.65 kg Audie Dionne Other [facility] Other 06-01-2021 16:20-0500 Diastolic blood pressure 80 mm[Hg] Audie Dionne Other [facility] Other 06-01-2021 16:20-0500 Respiratory rate 18 /min Audie Dionne Other [facility] Other 06-01-2021 16:20-0500 SaO2% (BldA) [Mass fraction] 98 % Audie Dionne Other [facility] Other 06-01-2021 16:20-0500 Systolic blood pressure 119 mm[Hg] Audie Dionne Other [facility] Other 03-27-2021 16:20-0500 Body height 162.56 cm Audie Dionne Other [facility] Other 03-27-2021 16:20-0500 Body mass index (BMI) [Ratio] 31.55 kg/m2 Audie Dionne Other [facility] Other 03-27-2021 16:20-0500 Body temperature 96.5 [degF] Audie Dionne Other [facility] Other 03-27-2021 16:20-0500 Body weight 83.37 kg Audie Dionne Other [facility] Other 03-27-2021 16:20-0500 Diastolic blood pressure 80 mm[Hg] Audie Dionne Other [facility] Other 03-27-2021 16:20-0500 Respiratory rate 18 /min Audie Dionne Other [facility] Other 03-27-2021 16:20-0500 SaO2% (BldA) [Mass fraction] 99 % Audie Dionne Other [facility] Other 03-27-2021 16:20-0500 Systolic blood pressure 119 mm[Hg] Audie Dionne Other [facility] Other Encounters Encounter Date Encounter Type Care Provider Facility Start: 11-11-2023 End: 11-11-2023 [facility] Work Phone: Start: 11-11-2023 End: 11-11-2023 Patient encounter procedure [facility] Work Phone: Start: 11-07-2023 Non-patient / Non-visit [facility] [email or web address] Work Phone: Start: 10-19-2023 End: 10-19-[address] [facility] Work Phone: Start: 10-19-2023 End: 10-19-2023 Patient encounter procedure [facility] Work Phone: Start: 05-21-2023 End: 05-21-2023 ambulatory Audie Dionne Other [facility] Other Start: 05-21-2023 Office outpatient vi sit 25 minutes Audie Dionne [facility] Start: 11-19-2022 End: 11-19-2022 ambulatory Audie Dionne Other [facility] Other Start: 11-19-2022 Office outpatient vi sit 15 minutes Audie Dionne [facility] Start: 09-06-2022 ambulatory DAYANA LOPEZ Facility: Start: 07-17-2022 End: 07-18-2022 ambulatory Iván TOMLIN [place] Start: 07-17-2022 End: 07-17-2022 Patient encounter procedure Iván TOMLIN [facility] Start: 07-07-2022 End: 07-08-[address] IVÁN TOMLIN . Facility:[facility] Start: 07-02-2022 End: 07-03-2022 ambulatory MD AUDIE TRUONG Facility:[facility] [place] Start: 07-02-2022 End: 07-02-2022 Patient encounter procedure Iván TOMLIN [facility] Start: 05-31-2022 ambulatory MD AUDIE TRUONG Facility :[facility] [place] Start: 05-29-2022 End: 05-29-2022 ambulatory Audie Dionne Other [facility] Other Start: 05-29-2022 Office outpatient vi sit 25 minutes Audie Dionne [facility] Start: 05-21-2022 End: 05-22-2022 ambulatory DAYANA LOPEZ Facility:[facility] Start: 12-30-2021 End: 12-31-2021 ambulatory DAYANA LOPEZ Facility:[facility] Start: 11-21-2021 End: 11-21-2021 ambulatory Audie Dionne Other [facility] Other Start: 11-21-2021 Office outpatient vi sit 25 minutes Audie Dionne [facility] Start: 11-14-2021 End: 11-15-2021 ambulatory AUDIE DIONNE Facility: Start: 06-02-2021 End: 06-02-2021 ambulatory Audie Dionne Other [facility] Other Start: 06-02-2021 Telephone encounter Audie Dionne [facility] Start: 06-01-2021 End: 06-01-2021 ambulatory Audie Dionne Other [facility] Other Start: 06-01-2021 Office outpatient vi sit 25 minutes Audie Dionne [facility] Start: 03-27-2021 End: 03-27-2021 ambulatory Audie Dionne Other [facility] Other Start: 03-27-2021 Office outpatient ne w 45 minutes Audie Dionne [facility] Procedures Date Procedure Procedure Detail Performing Clinician Start: 01-08-2019 Esophagogastroduodenoscopy Iván TOMLIN Abdominal hysterectomy Clarence TOMLIN Appendectomy Iván TOMLIN Colonoscopy Iván TOMLIN Plan of Treatment Date Care Activity Detail Author Renal function 1999 panel - Serum or Plasma [facility] enter [facility] Payers Date Payer Category Payer Private Health Insurance [id number] 1950 Unknown [id number] 2.16.8 [id number] 1950 Unknown [id number] 2.16.8 [id number] 1950 Unknown [id number] 2.16.84 [id number] 1950 Unknown [id number] 2.16.84 [id number] 1950 Unknown [id number] 2.16.84 [id number] 1950 Unknown [id number] 2.16.84 [id number] 1950 Unknown [id number] 2.16.84 [id number] 1950 Unknown [id number] 2.16.84 [id number] Self-pay Self Pay [id number] Unknown [id number] Social History Date Type Detail Facility [facility] Start: 1950 Sex Assigned At Female F [facility] Sex Assigned At [facility] Start: 07-02-2022 End: 10-19-2023 Tobacco smoking status Never smoked tobacco (finding) [facility] Tobacco smoking status Never [facility] Goals Date Patient Goal Desired Activity /State Functional Status Date Assessment Result Facility 07-02-2022 Functional Status N/A [facility] Clinical Notes 03-27-2021 to 05-21-2023 Note [...] stain. Monitor LFTs and lipid profile periodically. [facility] Other 07-31-2023 Evaluation note* Encounter Date Diagnosis [...] down the progression of CKD. Oct, Chris espinoza cr kid I-IV (ICD-10 - [...] advised to have repeat in 5 yrs [facility] Other 03-28-2023 Note [id number]:[address] [place] [address] 07-17-2022 Hospital Discharge instructions Patient Education 07/17/2022 [...] Address: [facility] [address] [place] [address]- Business (1) When: Unknown Comments:Call for any problems. [facility]03-28-2023 NoteCustom Cystoscopy ? Voiding after the [...] if you have a fever over 100 degrees.[facility] 07-02-2022 NoteChief Complaint Pt here for referral for microscopic hematuria [facility] Staff New patient referral from Dr. Truong [...] When Contact Information KELLY BLACKMON, Iván Hsu, [facility] [address], [place] [address]- Additional Instructions: schedule cysto, CHRIS Patient Education [...] tab(s), Oral, q6hr fluticasone 0.05 mg/inh Nasal [place], 2 spray(s), Nasal, Daily (more content not included)...[facility] Comment: Electronically Signed By: Iván TOMLIN MD\.br\Date and Time Signed: 07/02/22 14:52 EDT\.br\Electronically Co-Signed By: Moira Estrada\.br\Date and Time Co-Signed: 07/02/22 14:50 [id number] Hospital Discharge instructions Patient Education 07/02/2022 14:22:27 [...] Follow these instructions at home: Medicines Take wghp-clk-ctybjfu and prescription medicines only as told by [...] or the blood stops without treatment. Take szhw-lbr-eoonrbg and prescription medicines only as told by your health care provider. Drink enough fluid to keep your urine clear or pale yellow. This information is not intended to replace advice given to you by your health care provider. Make sure you discuss any questions you have with your health care provider. Document Released: 04/08/2006 Document Revised: 09/02/2019 Document Reviewed: 05/11/2017 [employer] Patient Education 2020 [employer] Follow Up Care 05/31/2022 13:31:32 With:KELLY BLACKMON, Iván Hsu, URL Address: [facility] [address], [place] [address]- When: Unknown [facility] 02-07-2023 Evaluation note* Encounter Date Diagnosis [...] advised to have repeat in 5 yrs [facility] Other 08-02-2022 Evaluation note* Encounter Date Diagnosis [...] stain. Monitor LFTs and lipid profile periodically. [facility] Other 02-10-2022 Evaluation note* Encounter Date Diagnosis [...] stain. Monitor LFTs and lipid profile periodically. [facility] Other 12-06-2021 Evaluation note* Encounter Date Diagnosis [...] PCP. Mar, Dyslipidemia (ICD-10 - E78.5) Continue [facility]. Monitor LFTs and lipid profile periodically. [facility] Other Evaluation + Plan note Future Appointments Appointment Date:07/10/2022 11:30:00 AM Scheduled Provider: Location:[facility] Appointment Type:Urology CALL PAT FT Appointment Date:07/17/2022 08:45:00 AM Scheduled Provider: Location:[facility] Appointment Type:Urology FT Diagnostic Tests Pending * Urine Cytology ([facility]) 07/02/22 [facility] evaluation noteNo Assessments Information Available [facility] noteNo InformationNort [employer] Other Evaluation noteNo assessment information available [facility] Work Phone: Evaluation note* Diagnosis Onset Date Resolution Status Maxillary sinusitis, acute a cute Anemia of renal disease acut e CKD (chronic kidney disease) stage 3, GFR 30-59 ml/min acute Hyperlipidemia acute [id number] acute Hypomagnesemia acute Secondary hyperparathyroidism acute [facility] Work Phone: History general Narrative - Reported* Type Description Date Medical History HTN Medical History Hypothyroidism Medical History hyperlipidemia Medical History acid reflux Medical History anxiety Medical History PRE DIABETIC Medical History mixed hypercholestolemia Medical History CKD STAGE 3 Medical History INSOMNIA Surgical History hysterectomy, total with BSO Surgical History fallopian tube removed Hospitalization History see above hx Hospitalization History N&V [facility] Other Hisgciv general Narrative - Reported* Type Description Date [...] History see above hx Hospitalization History N&V [facility] Other Hospital course Narrative No data available for this section [facility] progress note No data available for this section [facility] Summary Purpose Family History Relationship Condition Age at Onset Recorded Date/T belle brother Hypertension Unknown father Unknown Parkinson's disease Unknown Family history of mental disorder Unknown mother Family history of mental disorder Unknown Unknown Hypertension Unknown Advance Directives Advance Directive Response Recorded Date/ Time Advance Directives No November 16 4:06pm Chief Complaint and Reason for Visit Chief Complaint Sinus congestion, he adache Chief Complaint Sinus congestion, he adache RENAL 6 month follow up Reason for Visit Maxillary sinusitis, acute Anemia of renal disease CKD (chronic kidney disease) stage 3, GFR 30-59 ml/min Hyperlipidemia [id number] Hypomagnesemia Secondary hyperparathyroidism Additional Source Comments REASON FOR VISIT (unrecogniz [...] October 19, 2023 End: October 19, 2023 Team Status: Active Member Role Status Dates LILIANA Guevara Primary Care Provider Active Start: November 07, 2023 Audie Truong MD Attending Provider Active Start : November 07, 2023 Team Status: Inactive Member Role Status Dates LILIANA Guevara Primary Care Provider Active Start: November 11, 2023 End: November 11, 2023 Audie Truong MD Attending Provider Active Start : November 11, 2023 End: November 11, 2023 INFORMATION SOURCE (unrecogn ized section and content) DATE CREATED AUTHOR 07/24/2022 [facility] DATE CREATED AUTHOR AUTHOR'Freddy MAURICE ATDESI 09/05/2022 [facility] [place] [facility] Goals (unrecognized section and content) [...] BE BASED ON THE PRIMARY CLINICAL RECORDS. [employer] provides no warranty or guarantee of the accuracy or completeness of information in this document.
== END 2023-12-10 15:38 | disposition home or self-care (01) ==
LOC: CT 15:38
PROVIDERS: PCP Nurse Practitioner Family; Visit Provider Internal Medicine
DX: B38.2 Pulmonary coccidioidomycosis, unspecified (principal)
CPT/HCPCS: 71250

== ENCOUNTER 2024-03-04 09:21 | Outpatient (OUT) | payer MEDICARE, SELFPAY ==
--- NOTE | 2024-03-04 09:23 | MM_ITS ---
Patient Name: KAREEN HADLEY MR#: [id number] : 1950 Exam Date: 03/04/2024 Ordering Doctor: DAYANA LOPEZ CNP RADIOLOGY REPORT PROCEDURE: MM TOMOSYNTHESIS SCREENING BI COMPARISON: MG MAMM SCREEN 3D KUN CAD, 09/06/2022. MG MAMM SCREEN 3D KUN CAD, 09/04/2021. INDICATIONS: Screening for malignant neoplasm Calculator Name NCI Breast Cancer Risk Assessment Tool 5 Year Breast Cancer Risk 1.60% Lifetime Breast Cancer Risk 4.30% Personal Breast Cancer No Personal Ovarian Cancer No Treatments None Family Cancers None LOCATION: [facility] BREAST COMPOSITION: There are scattered areas of fibroglandular density. FINDINGS: DIAGNOSTIC CATEGORY 1--NEGATIVE. NO CHANGE FROM COMPARISON ASSESSMENT. Scattered benign-appearing calcifications are present. Scattered benign-appearing lymph nodes are present. RIGHT BREAST: No significant suspicious finding. LEFT BREAST: No significant suspicious finding. RECOMMENDATIONS: ROUTINE MAMMOGRAM AND CLINICAL EVALUATION IN 12 MONTHS. PLEASE NOTE: A NORMAL MAMMOGRAM DOES NOT EXCLUDE THE POSSIBILITY OF BREAST CANCER. A CLINICALLY SUSPICIOUS PALPABLE LUMP SHOULD BE BIOPSIED. Dictated by: Jose Hudson MD on 03/04/2024 at 10:51 Approved by: Jose Hudson MD on 03/04/2024 at 10:52
--- OUTSIDE RECORDS SUMMARY | 2024-03-04 09:32 | XMS_ITS | CCD ---
Author Organization [facility] Care Team Providers Care Nitrator Operator Name Role Phone Audie Truong Unavailable DAYANA [...] Medication Allergies] Propensity to adverse reactions (disorder) [facility] Repository Medications Current Medications Medication Drug [...] a day Active fluticasone 0.05 mg/inh Nasal [place] (2 sources) Start: 01-01-2019 take 2 spray(s) nasal route once daily fluticasone 0.05 mg/inh Nasal [place] 2 spray(s), Nasal, Daily, each nostril Start [...] Start: 01-01-2019 take 1 capsule by mo [facility] once daily levothyroxine 125 mcg (0.125 mg) [...] procedure, # 2 tab(s), Refills(s) 0, Pharmacy: [facility]/pharmacy #[id number], 162, cm, 07/02/22 14:24:00 EDT, Height/Length [...] distribution width (RBC) [Ratio] 13.8 % 11.0-15.0 [facility] Estimated glomerular filtrat ion rate (GFR) non- Americanon 11-07-2023 GFR/1.73 sq M.predicted among non-blacks MDRD (S/P/Bld) [Vol rate/Area] 35 mL/min/{1.73_m2} Low >=60 [facility] Hematocrit Auto (Bld) [Volum e fraction]on 11-07-2023 Hematocrit (Bld) [Volume fraction] 38.7 % 36.0-48.0 [facility] Hemoglobin [Mass/volume] in Bloodon 11-07-2023 Hemoglobin (Bld) [Mass/Vol] 11.9 g/dL Low 12.0-16.0 [facility] Laboratory - Chemistry and C hemistry - challengeon 11-07-2023 Albumin [Mass/Vol] 3.1 g/dL Low 3.4-5.0 [facility] Calcium [Mass/Vol] 8.7 mg/dL 8.5-10.1 [facility] Chloride [Moles/Vol] 103 mmol/L 98-107 [facility] CO2 [Moles/Vol] 28.9 mmol/L 21.0-32.0 [facility] Creatinine [Mass/Vol] 1.46 mg/dL High 0.55-1.02 [facility] GFR/1.73 sq M.predicted MDRD (S/P/Bld) [Vol rate/Area] 43 mL/min/{1.73_m2} Low >=60 [facility] Glucose [Mass/Vol] 100 mg/dL 74-106 [facility] Magnesium [Mass/Vol] 1.6 mg/dL Low 1.8-2.4 [facility] Potassium [Moles/Vol] 3.8 mmol/L 3.5-5.1 [facility] Sodium [Moles/Vol] 141 mmol/L 136-145 [facility] Urate [Mass/Vol] 5.3 mg/dL 2.6-6.0 [facility] Urea nitrogen [Mass/Vol] 21.0 mg/dL High 7.0-18.0 [facility] Urea nitrogen/Creatinine [Mass ratio] 14.4 mg/mg [facility] Bilirubin Ql (U) Negative NEGATIVE [facility] Glucose (U) [Mass/Vol] Negative NEGATIVE [facility] Ketones Ql (U) Negative NEGATIVE [facility] pH (U) 6.0 [pH] 5.0-9.0 [facility] Specific gravity (U) [Rel density] >=1.030 Abnormal 1.005-1.025 [facility] Urobilinogen Qn (U) 0.2 {Mikel'U}/dL 0.2-1.0 [facility] - Specimen inform ationon 11-07-2023 Appearance (U) CLEAR CLEAR [facility] Color (U) LT. YELLOW YELLOW [facility] - Urinalysison Hyaline casts LM Ql (Urine sed) RARE [facility] Leukocyte esterase Test strip Ql (U) MODERATE Abnormal NEGATIVE [facility] Mucus Ql (Urine sed) SMALL Abnormal NONE SEEN [facility] Nitrite Ql (U) Negative NEGATIVE [facility] Protein Ql (U) TRACE mg/dL NEG/TRACE [facility] Leukocytes [#/volume] correc milagros for nucleated erythrocytes in Blood by Automated counon 11-07-2023 WBC corrected for nucl RBC Auto (Bld) [#/Vol] 7.5 10 3/uL 4.0-11.0 [facility] MCH Auto (RBC) [Entitic mass ]on 11-07-2023 MCH (RBC) [Entitic mass] 27.2 pg 26.7-34.0 [facility] MCHC Auto (RBC) [Mass/Vol]on 11-07-2023 MCHC (RBC) [Mass/Vol] 30.7 g/dL 29.9-35.2 [facility] MCV Auto (RBC) [Entitic vol] on 07-18-2024 MCV (RBC) [Entitic vol] 88.4 fL 81.0-99.0 [facility] No Panel Informationon 11-06 25-Hydroxy Vitamin D Total 83.6 ng/mL [facility] Comment on above: <20 ng/mL Vit D defi cient20-<30 ng/mL Vit D vmncdfqnngou18-179 ng/mL Vit D sufficient>100 ng/mL Potential Toxicity Parathyroid Hormone (Intact) 70 pg/mL Abnormal 15-65 [facility] Comment on above: Performed at: - [facility] [address] [id number] Director: Rich Camejo PhD, Phone: [phone] Phosphorus Level 3.2 mg/dL 2.6-4.7 [facility] Urine Bacteria SMALL #/HPF Abnormal NONE SEEN [facility] Urine Occult Blood SMALL Abnormal NEGATIVE [facility] Urine Other Casts SEEN #/LPF Abnormal NONE SEEN [facility] Urine Other Crystals None Seen #/HPF None Seen [facility] Urine RBC 0-2 #/HPF 0-2 [facility] Urine Squamous Epithelial Cells MANY #/LPF Abnormal NONE/RARE [facility] Urine Transitional Epithelial Cells MANY #/LPF Abnormal NONE SEEN [facility] Urine WBC 10-20 #/HPF Abnormal NONE SEEN [facility] Platelet mean volume Auto (B ld) [Entitic vol]on 11-07-2023 Platelet mean volume (Bld) [Entitic vol] 12.6 fL 9.5-13.5 [facility] Platelets Auto (Bld) [#/Vol] on 11-07-2023 Platelets (Bld) [#/Vol] 163 10 3/uL 150-450 [facility] RBC Auto (Bld) [#/Vol]on RBC (Bld) [#/Vol] 4.38 10 6/uL 4.20-5.40 [facility] Serum or plasma anion gap de terminationon 11-07-2023 Anion gap [Moles/Vol] 12.9 mmol/L [facility] Coding Summary.on 07-19-2022 Coding Summary. CD:[id number] Ww+PGhlYWQ+WM8JQHIuR 32ibHIuvO0rU0IENUjMB ywgQVBQTElOSyIgbmFtZ G5jrLNpDVJk IC8+NN3xBZVxObmbrABy k6Q7dHS5R20seb0kQIkp nOA9ANRvWvVcscbll3ak tWv2HIhsAxsgTwGz CWFtmT51QER5wI38Uh17 mTSbkIJwe3bqhPn7XoEo MOQxPPV4bDczZEpfk2Dz WZGqK16ebFAaa2K1 IGNvbGxhcHNlOyBlbXB0 nP6gXWrfvvhun7oralhb Wwz6ri48yTAyh2N4qZU0 P8HyfuX0TIMkzZOt HwklrDGNrW0sohlqk2om vmewDjQuVMAkCDo3UHc8 UWHijUjpRnPvYB00DNV9 PYQlbmFmL3UmBWUp xAegDhP1e2C4Zu3YN5KJ PfirV4DHQMKDPHlwbOK+ EA34hb82V6PpCejpWzu8 MTFmRVX2qMT5nZ6v WGEiQWoio9O2aQT0R8Sj faVtjt2kn6ftGFDcYAoh S10ucGFeu8Y5YDNdbGG0 SCQjgRjcBeRczO07 Oyc+QSHeiYqfh2JpZzth v5tzl4bcpCa2TbsuRVSt hcFcqBoqAQQ1k7VwIv6x PGYtvYU9gAC3uC7l TzTbAzQ7RDntP396KrTj vAHwYienZ20vV6IvuHI+ XSEeBds4DOYrsGrlVL0t S2CpKMIeozwwmJCt rTptYJ3tQOMjoteuPDGs sO1uOXNtJ1q8UjTePbO1 QMalH6TaHAQyguttBl72 eQ1xTeAnNeG8TAas L0RnmkU7FFFsyFZeKEkx NYZ8I15og1J4QDNiODKq FAN4eFP7aP2efOibwpmx bGVmdDsgdmVydGlj PVrkVMtiO232HBCsiYzy PkNvZGluZyBEYXRlOiAg MDMvMzAvMjAyMzwvdGQ+ KPXcISR2cYojQBAr bINwAGwjOi9hwQrbbFlj ZS2kJDCezbcjYJKreS8o CJOxvYPgqRpaLH7mUDVb sjzxg383SyPkKZM2 GHGboAUdJ4NbgW8tZfNc DAWpSHImN7PusLRgZLss Y914FYjlFyA4JJQmzzFv P3WyVWJkeUigBcA6 p4O1Wc2Kx5CiyirhF8Gs pSStLkJgEndmTOb3U5Io PjwvdHI+FT07JBIxOK19 XDs5DES5mJulKEgr IMTzM0DujM8eFsBoVGVh ZGRkOyc+PHRhYmxlIHdp ZHRoPScxMDAlJyBzdHls BN6iPp0xPWUzGQDr hBtviCScGaKsd4uvLRTt LTemES0xhMmcY3UqcEG4 NKEpx5y9Dc11S82jG6Lb dXA+NFRqhNX0mSF2 tE0oLePbKlK2VOovW797 KbQpiIYtLjkyu1ltq3fn sHu9EqW3ONSafoJglHtb BJV9b0JgTb15Q40q IHdpZHRoPSIxNSUiIHZh qWiecs5qcP6dJl9+PGNv jBK2vNF3lG5cWaMoAzG4 NMipP952QyRgvIXz Ssnzv8zdk1sotMy3HtXq OTYwozCduAczQMM0o7Op Ri69N4XgrEmfs3UlVvl3 ek27zUOoy2Y2mVF7 U2YeSEJtijyvmNXeyTas RZ1kYYBhoddnWSJfgH5b STCwU5i3JkHrAgT8VQyw H9DkbkO9HGPlvPXv TBNtsSNGuV0wjnjef7rf axmkSjMzWKUiBIy3ZPk6 BDYooCczVyQcJDL0SmU0 PWP7aODfwB4nrOjr cfcseF9hWkh+BTK3qCDn hBVPMU0sUgxqdUA+PHRk RDM8eHwxQGceNXItiU7p LIXgC9h1OhVhYbN2 YXklK3GuvoI1MMClfNGj CULsmRWKvU1xdgpeh8vr aammGwQvVHPzFNc1MTl5 LWFsaWduOiBsZWZ0 FsU1FDH9aVQcqL9mhQie rcvemC9wThw+QmlydGgg MKS2MCx9Q8JwXrf8BQXd iLpyQJ1zxPDyHPvq Ok4wmSepcOtrJU8qATIw xtbeq003QsUrw5zvESAo kCYbMZhuKNQ3B08op6H2 DZExGTZaWTP5iOH4 wS5siOmdnxwynYHlaUan vlOcfVtxSDviNZxvF623 HOIksHyiSsTfXWi3I4Dy Zkm7KWDuvQdcTS8p mKBoTGplVt8aoVdgnAca SD2xCCMdxzosw856VzBe g9imJLPenOBtKBbqAOK7 V33bu5J6FWAxOHHu QHZ0rHQ5xA9ipWlqhsgw bGVmdDsgdmVydGljYWwt GPtxK704FEWobTzsOuLy dBb8K4JeWfq8GNFs nMuhMO6olGVcLOseDk9d yPfxjCmbPU6kFKAdsdbw y911OkLkx5kbYIOhlGWh BGgvPIJ5F05pg1I0 QZEoEDEsRDA7hGN4xW1j bGlnbjogbGVmdDsgdmVy hFpeLWjqEOptA016ALOw cDsnPlBhdGllbnQg NBmpODr5Q3MbEskkyJI+ LL02AJJnPX70oBNjvSJm r5cvpMq4XeIuLZBxHZI4 sUvdELjas5VqTFZh Q33zvSPof5P1WXShlUob tXQuWaUejBK2iH2yXRwz vrnek4unekfzZfvfn1pt km33uL67J30oTPmx ZHRoPSIzMCUiIHZhbGln pn8jgN6cFb4+PGNvbCB3 pVP3eN9oBMDxMaK8KUxl N403ByMbsLQzUruc b8hfp7gdkBo5PbK1DNKw ijQnrXnqHYV8g6RfPq86 G64oNChaAWGlUAFoWELc PJNmlSpbpu5ckI2d Ii8+SOWuiFB6fOR8vI7s EvArAwL1LOgzC173KbFo lPFqRwbfT38pC4BflFO+ MCJnQse2TXCrpWet SI9pvQRjYHefCf6fVYV7 VxXbPcKcBMrfO3CfOYHq ijueaacydZR9ZBAmHDMx lA15Be6tiYmoQNLg cWHFoQ3vzkazr1aeoohe EtCbFDNzCIp8CQp4ERAt pIuqGhOkDNU5NuS0RND6 rZRzwH6wlLvgllwm iF7aW3QnKKDvlmprAj23 bL9wQzYiHzA4LKblZxx+ K3LCCrCRRTWNSIFHO7HL TkUgQTwvdGQ+PHRk MUN9cUymJAzoCKJolD0k ZTRzX1d6JrMlTgN7WVre G0DmTKEvpgrdYl43rQ5v DaMeNxC0HVdeH3Re kcZ7XYIzhFRiVUceREH9 R35bn1M7GZVuFRWaGUJ8 xNB4sQ9vaRefqdrwsFXr dDsgdmVydGljYWwt FXhpP396GCRocDklEqYo InWcCxT4PAI4B2RgHej9 THEenVesYN9tzVRmDIvo Cn0qaUvegMlbHQ0q HEYcxfrpAVDxiH6mDZJb uKVeoXziME5uORMjvuzx w758BsJyXOL3VWDcvVBr L6EyzG2xSzGmVXAc DWCfT3IdgGAiNErzT939 MUqtXkZ0QNSpkeSuT3Ua YSBrkSkxWzL2f7B1Mw23 MCBZZWFyczwvdGQ+ VWGqHGD1yJsqNYrfWJFl lA5kNRJrU8g4WiWyVsM7 THopV2HaNSFdtlnfJp29 cU3qTrTcSeX9RUla Q6KungB4ZHMzqPCiONqr XMO9X16ev7Z1USIgZEZg PKF0iBE0dG0ubKbbustw bGVmdDsgdmVydGlj MObnDDkkS966PCYflRsn PkZlbWFsZTwvdGQ+PHRk RKN9aXnwNImyLQTmoF2w KKDqD7u9NmBeWhO1 SCtrM6LnTJGtimrfGi70 vI6eAzKqFjW9SHqjF9Mg ncO4IRUanXWlYRufGJL0 B18yv3K1USXyXCJr ITK2uPM1zZ9pvQskrnoj bGVmdDsgdmVydGljYWwt GNbfE032IVLikRliCb72 oUDmyTafdpH9F7Ux PjwvdHI+EI85IVKbNT94 cCUufQIpf4rreTd4UlIs LGJuZRT9oXguVFxkb1Jc CRRkN83woOHpz4N6 IGNvbGxhcHNlOyBlbXB0 xY2nBBgsqforb8jgirkh Wgpca7wfwq16sI62G70s IHdpZHRoPSIzMCUi DOQjgTzwut5rrR9ePu8+ GRLumBY2rYY0wR6rOkQa AcT8EHyvR496SxCcoWMu Jamrn6duc1mfbWn1 IjIwJSIgdmFsaWduPSJ0 m2ZvUs99C06eBAkdZIKu OEKmLOSyNSAmqXfdvz5n yB6tRf6+LO2ff4og ar72zD21mXX+PHRkIHN0 hUnfEVlxSPJmlF4bUKwn IaY1SOGfDtUneC35kYWy OMloZe0flBxxpTqh BB8vRRRbtgjme585DjQw k0foZVKdeHGeRZqnYEG0 C13sf2S1KTEhWOQbMBX6 nGY2yA0mqOzxfbcg bGVmdDsgdmVydGljYWwt FRylB839VRFljVzaXwYn uYYhT0vdghHGFG1yQkhk dGQ+YVZqWXQ7fAwp EQueWGVdhB7yLKXjW9z1 XvSdWgJ6ZVngW4ZzkhQ4 PHHglXGpSQVxrLFKaP5x rpdlq6hbrbtlMsTg VFZkEXo3NHf5TDKghJtb YgPpLBM1VoT9SYP9fOQv bN4yyDbsoeocnQ0aHfv+ RklOOjwvdGQ+PHRk ATP3mMudLOobVWMlwZ5r BXYgS8f8LeOqAyB3SWfl C2EtmiV4SCPjvEWbJGTv wFYAeU1mjdtba1iz blcxRgGyFYUtCYk4IKd0 ZUUsuDoqKsHeUDN6JvP1 WGD2eOPfsQ5aoDaizlqp kT1gXwi+TVJOOjwv dGQ+NGWeJFY8oUwcLGog BJBfcZ7kTHVvA4v3WsXl ZqW4FSxnL7XpayC8WIAr nMEcCJHznPDYmR7p flzms1pksuayOwRuSWKb ZPv2FRm0XDCvcStwAuGt DBU3SzE9XDX2jIEpsG8p vKckuzlzsQ5fQpp+ OQY2SGA2EW76SH14U7Xh PjwvdGFibGU+PHRhYmxl IHdpZHRoPScxMDAlJyBz nVbkOS5rFc7zOAYd LWNvbGxh (more content not included)... [facility] Consent for Procedure/Surger yon 07-17-2022 Consent for Procedure/Surgery [id number] 0#1.00CD:127 [facility] Consent for Treatmenton 03-2 Consent for Treatment [id number] #1.00CD:127 [facility] IntraOperative Documentson 0 07-17-2022 IntraOperative Documents [id number] 2#1.00CD:127 [facility] Main OR Intraoperative Recor don 07-17-2022 Main OR Intraoperative Record IntraOp Document Type FTURO Summary Primary Physician: Iván TOMLIN MD Finalized Date/Time: 07/17/22 09:10:19 Pt. Name: PEG HADLEY/Sex: 1950 Female Med Rec #: [id number] Physician: Iván TOMLIN MD Financial #: [id number] Pt. Type: O Room/Bed: / Admit/Disch: 07/17/22 [...] Palma Ko Role Performed Surgeon - Primary Application Support Administrator - Primary Scrub - Primary Time In [...] DEDRA Noe RN, Ruthann 07/17/22 09:10 Normal [facility] Main OR Preoperative Recordo n 07-17-2022 Main OR Preoperative Record Holding Area Document Type FTURO Summary Primary Physician: Iván TOMLIN MD Finalized Date/Time: 07/17/22 09:04:54 Pt. Name: PEG HADLEY/Sex: 1950 Female Med Rec #: [id number] Physician: Iván TOMLIN MD Financial #: [id number] Pt. Type: O Room/Bed: / Admit/Disch: 07/17/22 [...] No Pain Comment: na Skin Integrity Intact, [place], Warm, & Dry Vitals - EU Blood Pressure 135/82 Pulse 65 bpm Respirations 16 br/min SPO2 96 % RN Reviewed Yes Last Modified By: DEDRA Noe RN, Ruthann 07/17/22 09:04:49 General Comments: temp:36.4 Finalized By: DEDRA Noe RN, Ruthann Document Signatures Signed By: Maeve Florian LPN 07/17/22 08:41 DEDRA Noe RN, Ruthann 07/17/22 09:04 Normal [facility] Operative Reporton Operative Report Patient: PEG [...] follow-up on a as needed basis.. Normal [facility] Comment on above: Result Comment: Elec tronically Signed By: Iván TOMLIN MD\Date and Time Signed: 07/17/22 09:13 EDT RAD - Ultrasound Reporton RAD - Ultrasound Report [id number] #1.00CD:127 Normal [facility] Urine Cytology ([facility])on 0 07-09-2022 Urine Cytology Diagnosis Info Invalid Interpretation Code [facility] Comment on above: Result Comment: A:Ur ine,Urine:Voided Interpretation - MicroScopic Description - Adequacy - Gross Description Site ID:A color Light Yellow fixative Alcohol Specimen designated Urine received in alcohol preservative and labeled with the patient?s name, consists of 40ml clear light yellow fluid. Electronically signed by : on: 07/09/2022 15:10:50 Performed By: #### 1 [id number] ####[facility] [id number] [place] [address] US KIDNEYSon 07-07-2022 US KIDNEYS EXAM: US [...] CAM Date: 2022-07-07 10:33 Normal [facility] Formson 07-03-2022 Forms [id number] #1.00CD:127 Normal [facility] Physician Referralon 023 Physician Referral [id number] #1.00CD:127 Normal [facility] Pre-Certification Formon Pre-Certification Form [id number] 8#1.00CD:127 Normal [facility] Ambulatory Visit Summaryon 0 07-02-2022 Ambulatory Visit Summary PEG HADLEY :1950 Visit Date:07/02/2022 Ambulatory Visit Instructions Your Diagnosis Microscopic hematuria Tests Performed Urnls Dip Stick Auto w/o Microscopy POC 56035 US Renal -- Results Pending -- Please [...] Tab) fluticasone nasal (fluticasone 0.05 mg/inh Nasal [place]) hyoscyamine (hyoscyamine 0.125 mg oral Tab) levothyroxine [...] [facility] [address], [place] [address]- Medications What How Much When Instructions Unchanged [...] fluticasone nasal (fluticasone 0.05 mg/ inh Nasal [place]) 2 Sprays Nasal Inhalation Every day each [...] Urnls Dip Stick Auto w/o Microscopy POC 90131 (07/02/2022) Bilirubin Urine Dipstick - Negative Blood Urine Dipstick - Trace-lysed Glucose Urine Dipstick - Negative Ketones Urine Dipstick - Negative Leukocytes Urine Dipstick - Negative Nitrite Urine Dipstick - Negative Protein Urine Dipstick - Negative Specific [place] Urine Dipstick - >=1.030 Urine Appearance Urine [...] include: ? (more content not included)... Normal [facility] Patient Educationon 07-03-19 Patient Education Urology [...] these instructions at home: Medicines ? Take fdez-fzg-ndmexrx and prescription medicines only as told by [...] the blood stops without treatment. ? Take ebyk-pgo-yfjghve and prescription medicines only as told by [...] Reviewed: 05/11/2017 [employer] Patient Education ? 2019 [employer] Normal [facility] Urine Cytology ([facility])on 0 07-02-2022 Method of Extraction Voided Normal [facility] Comment on above: Performed By: #### 1 [id number] ####[facility] [id number] [facility] [place] [address] Number of Jars 1 Invalid Interpretation Code [facility] Comment on above: Performed By: #### 1 [id number] ####[facility] [id number] [facility] [place] [address] Specimen Urine Normal [facility] Comment on above: Performed By: #### 1 [id number] ####[facility] [address] [facility] [place] [address] Type of Service Technical Only Normal [facility] Comment on above: Performed By: #### 1 [id number] ####[facility] [address] [facility] [place] [address] PTH INTACTon 05-22-2022 PTH, Intact 75 pg/mL Critically high 15-65 [facility] Comment on above: Performed By: #### P THINT #### [facility] [address] [place] [address] Dr. Andrea Mccarthy FERRITINon 05-21-2022 Ferritin [Mass/Vol] 124.0 ng/mL Normal 8.0-252.0 [facility] Comment on above: Performed By: #### U KIM, MG, PHOS #### [facility] [address] [address] [address] Andrea Mccarthy HEMOGRAM AND PLATELon 2022 Hematocrit (Bld) [Volume fraction] 40.1 % Normal 36.0-48.0 [facility] Comment on above: Performed By: #### U KIM, MG, PHOS #### [facility] [address] [place] [address] Dr. Andrea Mccarthy Hemoglobin (Bld) [Mass/Vol] 13.2 g/dL Normal 12.0-16.0 [facility] Comment on above: Performed By: #### U KIM, MG, PHOS #### [facility] [address] [place] [address] Dr. Andrea Mccarthy MCH (RBC) [Entitic mass] 28.0 pg Normal 26.7-34.0 [facility] Comment on above: Performed By: #### U KIM, MG, PHOS #### [facility] [address] [place] [address] Dr. Andrea Mccarthy MCHC (RBC) [Mass/Vol] 32.9 g/dL Normal 29.9-35.2 [facility] Comment on above: Performed By: #### U KIM, MG, PHOS #### [facility] [address] [place] [address] Dr. Andrea Mccarthy MCV (RBC) [Entitic vol] 85.1 fL Normal 81.0-99.0 [facility] Comment on above: Performed By: #### U KIM, MG, PHOS #### [facility] [address] [place] [address] Dr. Andrea Mccarthy PLT 255 103/ul Normal 150-450 [facility] Comment on above: Performed By: #### U KIM, MG, PHOS #### [facility] [address] [place] [address] Dr. Andrea Mccarthy RBC 4.71 106/ul Normal 4.20-5.40 [facility] Comment on above: Performed By: #### U KIM, MG, PHOS #### [facility] [address] [place] [address] Dr. Andrea Mccarthy WBC 5.9 103/ul Normal 4.0-11.0 [facility] Comment on above: Performed By: #### U KIM, MG, PHOS #### [facility] [address] [place] [address] Dr. Andrea Mccarthy IRON AND TIBCon 05-21-2022 % SATURATION 18.5 % Normal [facility] Comment on above: Performed By: #### U KIM, MG, PHOS #### [facility] [address] [address] [address] Andrea Mccarthy Iron [Mass/Vol] 51.0 ug/dL Normal 50.0-170.0 [facility] Comment on above: Performed By: #### U KIM, MG, PHOS #### [facility] [address] [address] [address] Andrea Mccarthy TIBC DIRECT 276.0 ug/dL Normal 250.0-450.0 [facility] Comment on above: Performed By: #### U KIM, MG, PHOS #### [facility] [address] [place] [address] Dr. Andrea Mccarthy MAGNESIUMon 05-21-2022 Magnesium [Mass/Vol] 1.8 mg/dL Normal 1.8-2.4 [facility] Comment on above: Performed By: #### U KIM, MG, PHOS #### [facility] [address] [place] [address] Dr. Andrea Mccarthy RENAL FUNCTION PANELon 05-21 Albumin [Mass/Vol] 3.5 g/dL Normal 3.4-5.0 [facility] Comment on above: Performed By: #### U KIM, MG, PHOS #### [facility] [address] [place] [address] Dr. Andrea Mccarthy Calcium [Mass/Vol] 8.5 mg/dL Normal 8.5-10.1 [facility] Comment on above: Performed By: #### U KIM, MG, PHOS #### [facility] [address] [place] [address] Dr. Andrea Mccarthy Chloride [Moles/Vol] 104 mmol/L Normal 98-107 [facility] Comment on above: Performed By: #### U KIM, MG, PHOS #### [facility] [address] [place] [address] Dr. Andrea Mccarthy CO2 [Moles/Vol] 29.6 mmol/L Normal 21.0-32.[address] [facility] Comment on above: Performed By: #### U KIM, MG, PHOS #### [facility] [address] [address] [address] Andrea Mccarthy Creatinine [Mass/Vol] 1.23 mg/dL Critically high 0.55-1.02 [facility] Comment on above: Performed By: #### U KIM, MG, PHOS #### [facility] [address] [place] [address] Dr. Andrea Mccarthy EGFR-AF KENYAN 52 mL/min/1.73m2 Critically low >=60 [facility] Comment on above: Performed By: #### U KIM, MG, PHOS #### [facility] [address] [place] [address] Dr. Andrea Mccarthy EGFR-NON AF KENYAN 43 mL/min/1.73m2 Critically low >=60 [facility] Comment on above: Performed By: #### U KIM, MG, PHOS #### [facility] [address] [place] [address] Dr. Andrea Mccarthy Glucose [Mass/Vol] 92 mg/dL Normal 74-106 [facility] Comment on above: Performed By: #### U KIM, MG, PHOS #### [facility] [address] [place] [address] Dr. Andrea Mccarthy Phosphate [Mass/Vol] 3.3 mg/dL Normal 2.6-4.7 [facility] Comment on above: Performed By: #### U KIM, MG, PHOS #### [facility] [address] [place] [address] Dr. Andrea Mccarthy Potassium [Moles/Vol] 3.9 mmol/L Normal 3.5-5.1 [facility] Comment on above: Performed By: #### U KIM, MG, PHOS #### [facility] [address] [place] [address] Dr. Andrea Mccarthy Sodium [Moles/Vol] 141 mmol/L Normal 136-145 [facility] Comment on above: Performed By: #### U KIM, MG, PHOS #### [facility] [address] [place] [address] Dr. Andrea Mccarthy Urea nitrogen [Mass/Vol] 25.0 mg/dL Critically high 7.0-18.0 [facility] Comment on above: Performed By: #### U KIM, MG, PHOS #### [facility] [address] [place] [address] Dr. Andrea Mccarthy UA RANDOM W/MICROSCOPICon BACTERIA NONE SEEN Normal NONE SEEN [facility] Comment on above: Performed By: #### U AMIC #### [facility] [address] [address] [address] Andrea Mccarthy Bilirubin Ql (U) Negative Normal NEGATIVE [facility] Comment on above: Performed By: #### U AMIC #### [facility] [address] [place] [address] Dr. Andrea Mccarthy CAST NONE SEEN Normal NONE SEEN [facility] Comment on above: Performed By: #### U AMIC #### [facility] [address] [place] [address] Dr. Andrea Mccarthy Clarity (U) CLEAR Normal CLEAR [facility] Comment on above: Performed By: #### U AMIC #### [facility] [address] [address] [address] Andrea Mccarthy Color (U) YELLOW Normal YELLOW [facility] Comment on above: Performed By: #### U AMIC #### [facility] [address] [place] [address] Dr. Andrea Mccarthy Crystals LM Nom (Urine sed) NONE SEEN Normal NONE SEEN [facility] Comment on above: Performed By: #### U AMIC #### [facility] [address] [place] [address] Dr. Andrea Mccarthy Epithelial cells LM Ql (Urine sed) FEW Abnormal NONE SEEN /RARE [facility] Comment on above: Performed By: #### U AMIC #### [facility] [address] [place] [address] Dr. Andrea Mccarthy Glucose Ql (U) Negative Normal NEGATIVE [facility] Comment on above: Performed By: #### U AMIC #### [facility] [address] [place] [address] Dr. Andrea Mccarthy Hemoglobin Ql (U) TRACE-INTACT Abnormal NEGATIVE [facility] Comment on above: Performed By: #### U AMIC #### [facility] [address] [address] [address] Andrea Mccarthy Ketones Ql (U) Negative Normal NEGATIVE [facility] Comment on above: Performed By: #### U AMIC #### [facility] [address] [address] [address] Andrea Mccarthy LEUKOCYTES Negative Normal NEGATIVE [facility] Comment on above: Performed By: #### U AMIC #### [facility] [address] [address] [address] Andrea Mccarthy MUCOUS TRACE Abnormal NONE SEEN [facility] Comment on above: Performed By: #### U AMIC #### [facility] [address] [place] [address] Dr. Andrea Mccarthy Nitrite Ql (U) Negative Normal NEGATIVE [facility] Comment on above: Performed By: #### U AMIC #### [facility] [address] [place] [address] Dr. Andrea Mccarthy pH (U) 5.0 [pH] Normal 5-9 [facility] Comment on above: Performed By: #### U AMIC #### [facility] [address] [place] [address] Dr. Andrea Mccarthy RBC 0-2 Normal 0-2 [facility] Comment on above: Performed By: #### U AMIC #### [facility] [address] [address] [address] Andrea Mccarthy SPEC GRAVITY 1.025 Normal 1.005-<=1.025 [facility] Comment on above: Performed By: #### U AMIC #### [facility] [address] [address] [address] Andrea Mccarthy UA PROTEIN Negative Normal NEGATIVE/ TRACE [facility] Comment on above: Performed By: #### U AMIC #### [facility] [address] [place] [address] Dr. Andrea Mccarthy Urobilinogen Qn (U) 0.2 {Mikel'U}/dL Normal 0.2 - 1. 0 [facility] Comment on above: Performed By: #### U AMIC #### [facility] [address] [place] [address] Dr. Andrea Mccarthy WBC NONE SEEN Normal NONE SEEN [facility] Comment on above: Performed By: #### U AMIC #### [facility] [address] [address] [address] Andrea Mccarthy URINE T PROTEIN CREAT RATIOo n 05-21-2022 Protein (U) [Mass/Vol] 21.5 mg/dL Critically high <=12.0 [facility] Comment on above: Performed By: #### U KIM, MG, PHOS #### [facility] [address] [place] [address] Dr. Andrea Mccarthy UR PROT CREAT RAT 0.15 Normal [facility] Comment on above: Performed By: #### U KIM, MG, PHOS #### [facility] [address] [place] [address] Dr. Andrea Mccarthy URINE CREAT 144.81 mg/dL Normal 20.00-300.00 [facility] Comment on above: Performed By: #### U KIM, MG, PHOS #### [facility] [address] [place] [address] Dr. Andrea Mccarthy VIT B12 AND FOLATEon 023 Cobalamin (Vitamin B12) [Mass/Vol] 1425.0 pg/mL Critically high 193.0-986.0 [facility] Comment on above: Performed By: #### U KIM, MG, PHOS #### [facility] [address] [place] [address] Dr. Andrea Mccarthy FOLATE 22.60 ng/mL Normal 8.60-58.90 [facility] Comment on above: Performed By: #### U KIM, MG, PHOS #### [facility] [address] [place] [address] SINUSES WO CONon [...] STEPHEN ROBLES Date: 2022-01-01 07:30 Normal [facility] INSULINon 11-15-2021 Insulin 9.0 uIU/mL Normal 2.6-24.9 [facility] Comment on above: Performed By: #### I NSULIN #### [facility] [address] [address] [address] Andrea Mccarthy PTH INTACTon 11-15-2021 PTH, Intact 43 pg/mL Normal 15-65 [facility] Comment on above: Performed By: #### U KIM, MG, PHOS #### [facility] [address] [place], [place] [address] Dr. Andrea Mccarthy VIT D 25-[place] [facility] 2021 Vitamin D, 25-Hydroxy 85.4 ng/mL Normal 30.0-100.0 [facility] Comment on above: Result Comment: Samina min D deficiency has been defined by the [place] [employer] and an Endocrine Society practice guideline as a level of serum 25-OH vitamin D less than 20 ng/mL (1,2). The Endocrine Society went on to further define vitamin D insufficiency as a level between 21 and 29 ng/mL (2). 1. IOM ([place] [employer]). 2010. Dietary reference intakes for calcium and D. [place]: The National Academies Press. 2. Dagoberto PAUL, Rachel GARDNER, Edilson MARTINEZ, et al. Evaluation, treatment, and prevention of vitamin D deficiency: an Endocrine Society clinical practice guideline. JCEM. 2010; 96(7):1911-30. Performed By: #### V ITADLC #### [facility] [address] [address] [address] Andrea Mccarthy CBC AUTO DIFFon 11-14-2021 BASO # 0.0 103/ul Normal 0.0-0.1 [facility] Comment on above: Performed By: #### U KIM, MG, PHOS #### [facility] [address] [address] [address] Andrea Mccarthy Basophils/100 WBC (Bld) 0.6 % Normal 0.2-2.0 [facility] Comment on above: Performed By: #### U KIM, MG, PHOS #### [facility] [address] [address] [address] Andrea Mccarthy EO # 0.2 103/ul Normal 0.0-0.7 [facility] Comment on above: Performed By: #### U KIM, MG, PHOS #### [facility] [address] [address] [address] Andrea Mccarthy Eosinophils/100 WBC (Bld) 2.4 % Normal 0.9-7.0 [facility] Comment on above: Performed By: #### U KIM, MG, PHOS #### [facility] [address] [address] [address] Andrea Mccarthy Erythrocyte distribution width (RBC) [Ratio] 14.0 % Normal 11.0-15.0 [facility] Comment on above: Performed By: #### U KIM, MG, PHOS #### [facility] [address] [address] [address] Andrea Mccarthy Hematocrit (Bld) [Volume fraction] 35.7 % Critically low 36.0-48.0 [facility] Comment on above: Performed By: #### U KIM, MG, PHOS #### [facility] [address] [place] [address] Dr. Andrea Mccarthy Hemoglobin (Bld) [Mass/Vol] 11.2 g/dL Critically low 12.0-16.0 [facility] Comment on above: Performed By: #### U KIM, MG, PHOS #### [facility] [address] [place] [address] Dr. Andrea Mccarthy IG # 0.02 10e3/ul Normal 0.00-0.03 [facility] Comment on above: Performed By: #### U KIM, MG, PHOS #### [facility] [address] [place] [address] Dr. Andrea Mccarthy IG % 0.3 % Normal 0.0-0.5 [facility] Comment on above: Performed By: #### U KIM, MG, PHOS #### [facility] [address] [place] [address] Dr. Andrea Mccarthy LYMPH # 1.8 103/ul Normal 1.2-3.8 [facility] Comment on above: Performed By: #### U KIM, MG, PHOS #### [facility] [address] [place] [address] Dr. Andrea Mccarthy Lymphocytes/100 WBC (Bld) 24.9 % Normal 20.5-60.0 [facility] Comment on above: Performed By: #### U KIM, MG, PHOS #### [facility] [address] [place] [address] Dr. Andrea Mccarthy MANUAL DIFF REQ NO Normal [facility] Comment on above: Performed By: #### U KIM, MG, PHOS #### [facility] [address] [place] [address] Dr. Andrea Mccarthy MCH (RBC) [Entitic mass] 27.3 pg Normal 26.7-34.0 [facility] Comment on above: Performed By: #### U KIM, MG, PHOS #### [facility] [address] [address] [address] Andrea Mccarthy MCHC (RBC) [Mass/Vol] 31.4 g/dL Normal 29.9-35.2 [facility] Comment on above: Performed By: #### U KIM, MG, PHOS #### [facility] [address] [place] [address] Dr. Andrea Mccarthy MCV (RBC) [Entitic vol] 87.1 fL Normal 81.0-99.0 [facility] Comment on above: Performed By: #### U KIM, MG, PHOS #### [facility] [address] [place] [address] Dr. Andrea Mccarthy MONO # 0.5 103/ul Normal 0.3-0.8 [facility] Comment on above: Performed By: #### U KIM, MG, PHOS #### [facility] [address] [place] [address] Dr. Andrea Mccarthy Monocytes/100 WBC (Bld) 7.0 % Normal 1.7-12.0 [facility] Comment on above: Performed By: #### U KIM, MG, PHOS #### [facility] [address] [place] [address] Dr. Andrea Mccarthy NEUT # 4.7 103/ul Normal 1.4-6.5 [facility] Comment on above: Performed By: #### U KIM, MG, PHOS #### [facility] [address] [place] [address] Dr. Andrea Mccarthy Neutrophils/100 WBC (Bld) 64.8 % Normal 43.0-75.0 [facility] Comment on above: Performed By: #### U KIM, MG, PHOS #### [facility] [address] [place] [address] Dr. Andrea Mccarthy Platelet mean volume (Bld) [Entitic vol] 10.1 fL Normal 9.5-13.5 [facility] Comment on above: Performed By: #### U KIM, MG, PHOS #### [facility] [address] [place] [address] Dr. Andrea Mccarthy PLT 309 103/ul Normal 150-450 [facility] Comment on above: Performed By: #### U KIM, MG, PHOS #### [facility] [address] [address] [address] Andrea Mccarthy RBC 4.10 106/ul Critically low 4.20-5.40 [facility] Comment on above: Performed By: #### U KIM, MG, PHOS #### [facility] [address] [address] [address] Andrea Mccarthy WBC 7.2 103/ul Normal 4.0-11.0 [facility] Comment on above: Performed By: #### U KIM, MG, PHOS #### [facility] [address] [address] [address] Andrea Mccarthy FREE THYROXINE INDEX T7on FTI 4.14 Normal 1.30-4.50 [facility] Comment on above: Performed By: #### U KIM, MG, PHOS #### [facility] [address] [address] [address] Andrea Mccarthy T3U 36.0 % Normal 30.0-39.0 [facility] Comment on above: Performed By: #### U KIM, MG, PHOS #### [facility] [address] [address] [address] Adnrea Mccarthy T4 [Mass/Vol] 11.50 ug/dL Normal 4.80-13.90 [facility] Comment on above: Performed By: #### U KIM, MG, PHOS #### [facility] [address] [address] [address] Andrea Mccarthy GLYCOHEMOGLOBIN A1Con 2021 ADA RECOMMENDATION SEE BELOW Normal [facility] Comment on above: Result Comment: ADA RECOMMENDED LIMIT 4.0 - 6.0 ADA THERAPEUTIC TARGET < 7.0 ACTION SUGGESTED > 7.0 Performed By: #### A 1C #### [facility] [address] [place] [address] Dr. Andrea Mccarthy Glucose [Mass/Vol] 137 mg/dL Normal [facility] Comment on above: Performed By: #### A 1C #### [facility] [address] [address] [address] Andrea Mccarthy HbA1c (Bld) [Mass fraction] 6.4 % Critically high 4.5-6.2 [facility] Comment on above: Performed By: #### A 1C #### [facility] [address] [address] [address] Andrea Mccarthy IRONon 11-14-2021 Iron [Mass/Vol] 34.0 ug/dL Critically low 50.0-170.0 [facility] Comment on above: Performed By: #### U KIM, MG, PHOS #### [facility] [address] [address] [address] Andrea Mccarthy LIPID PROFILEon 11-14-2021 CHOL-HDL RATIO NORM SEE BELOW Normal [facility] Comment on above: Result Comment: 3.3 - 4.4 LOW RISK 4.4 - 7.1 AVERAGE RISK 7.1 - 11.0 MODERATE RISK >11.0 HIGH RISK Performed By: #### L IPID, TSH, T7, CMP #### [facility] [address] [address] [address] Andrea Mccarthy Cholesterol [Mass/Vol] 152 mg/dL Normal <=200 [facility] Comment on above: Performed By: #### L IPID, TSH, T7, CMP #### [facility] [address] [address] [address] Andrea Mccarthy Cholesterol in HDL [Mass/Vol] 51 mg/dL Normal 40-60 [facility] Comment on above: Performed By: #### L IPID, TSH, T7, CMP #### [facility] [address] [address] [address] Andrea Mccarthy Cholesterol in LDL [Mass/Vol] 83.4 mg/dL Normal [facility] Comment on above: Performed By: #### L IPID, TSH, T7, CMP #### [facility] [address] [address] [address] Andrea Mccarthy Cholesterol.total/Ch olesterol in HDL [Mass ratio] 3.0 {ratio} Normal [facility] Comment on above: Performed By: #### L IPID, TSH, T7, CMP #### [facility] [address] [address] [address] Andrea Mccarthy HDL NORMAL > or = 60 mg/dl - LOW CARDIOVASCULAR RISK <40 mg/dl - HIGH CARDIOVASCULAR RISK Normal [facility] Comment on above: Performed By: #### L IPID, TSH, T7, CMP #### [facility] [address] [address] [address] Andrea Mccarthy LDL CALC NORMAL SEE BELOW Normal [facility] Comment on above: Result Comment: <100 mg/dl OPTIMAL 100 - 129 mg/dl NEAR OR ABOVE OPTIMAL 130 - 159 mg/dl BORDERLINE HIGH 160 - 189 mg/dl HIGH >190 mg/dl VERY HIGH Performed By: #### L IPID, TSH, T7, CMP #### [facility] [address] [address] [address] Andrea Mccarthy Triglyceride [Mass/Vol] 88 mg/dL Normal <=150 [facility] Comment on above: Performed By: #### L IPID, TSH, T7, CMP #### [facility] [address] [address] [address] Andrea Mccarthy VLDL CALC 17.6 mg/dL Normal [facility] Comment on above: Performed By: #### L IPID, TSH, T7, CMP #### [facility] [address] [address] [address] Andrea Mccarthy MAGNESIUMon 11-14-2021 Magnesium [Mass/Vol] 2.2 mg/dL Normal 1.8-2.4 [facility] Comment on above: Performed By: #### U KIM, MG, PHOS #### [facility] [address] [address] [address] Andrea Mccarthy PHOSPHORUSon 11-14-2021 Phosphate [Mass/Vol] 3.0 mg/dL Normal 2.6-4.7 [facility] Comment on above: Performed By: #### U KIM, MG, PHOS #### [facility] [address] [address] [address] Andrea Mccarthy PROF 14(COMP METB)on 022 Albumin [Mass/Vol] 3.2 g/dL Critically low 3.4-5.0 [facility] Comment on above: Performed By: #### L IPID, TSH, T7, CMP #### [facility] [address] [place] [address] Dr. Andrea Mccarthy Albumin/Globulin [Mass ratio] 0.8 {ratio} Normal [facility] Comment on above: Performed By: #### L IPID, TSH, T7, CMP #### [facility] [address] [place] [address] Dr. Andrea Mccarthy ALP [Catalytic activity/Vol] 51 U/L Normal 46-116 [facility] Comment on above: Performed By: #### L IPID, TSH, T7, CMP #### [facility] [address] [place] [address] Dr. Andrea Mccarthy ALT [Catalytic activity/Vol] 13 U/L Critically low 14-59 [facility] Comment on above: Performed By: #### L IPID, TSH, T7, CMP #### [facility] [address] [place] [address] Dr. Andrea Mccarthy Anion gap [Moles/Vol] 11.4 mmol/L Normal [facility] Comment on above: Performed By: #### L IPID, TSH, T7, CMP #### [facility] [address] [place] [address] Dr. Andrea Mccarthy AST [Catalytic activity/Vol] 9 U/L Critically low 15-37 [facility] Comment on above: Performed By: #### L IPID, TSH, T7, CMP #### [facility] [address] [place] [address] Dr. Andrea Mccarthy Bilirubin [Mass/Vol] 0.3 mg/dL Normal 0.2-1.0 [facility] Comment on above: Performed By: #### L IPID, TSH, T7, CMP #### [facility] [address] [place] [address] Dr. Andrea Mccarthy Calcium [Mass/Vol] 8.4 mg/dL Critically low 8.5-10.1 [facility] Comment on above: Performed By: #### L IPID, TSH, T7, CMP #### [facility] [address] [address] [address] Andrea Mccarthy Chloride [Moles/Vol] 105 mmol/L Normal 98-107 [facility] Comment on above: Performed By: #### L IPID, TSH, T7, CMP #### [facility] [address] [place] [address] Dr. Andrea Mccarthy CO2 [Moles/Vol] 27.7 mmol/L Normal 21.0-32.0 [facility] Comment on above: Performed By: #### L IPID, TSH, T7, CMP #### [facility] [address] [place] [address] Dr. Andrea Mccarthy Creatinine [Mass/Vol] 1.31 mg/dL Critically high 0.55-1.02 [facility] Comment on above: Performed By: #### L IPID, TSH, T7, CMP #### [facility] [address] [place] [address] Dr. Andrea Mccarthy EGFR-AF KENYAN 49 mL/min/1.73m2 Critically low >=60 [facility] Comment on above: Performed By: #### L IPID, TSH, T7, CMP #### [facility] [address] [place] [address] Dr. Andrea Mccarthy EGFR-NON AF KENYAN 40 mL/min/1.73m2 Critically low >=60 [facility] Comment on above: Performed By: #### L IPID, TSH, T7, CMP #### [facility] [address] [place] [address] Dr. Andrea Mccarthy Globulin (S) [Mass/Vol] 3.9 g/dL Normal [facility] Comment on above: Performed By: #### L IPID, TSH, T7, CMP #### [facility] [address] [place] [address] Dr. Andrea Mccarthy Glucose [Mass/Vol] 97 mg/dL Normal 74-106 [facility] Comment on above: Performed By: #### L IPID, TSH, T7, CMP #### [facility] [address] [place], [place] [id number] Dr. Andrea Mccarthy Potassium [Moles/Vol] 4.1 mmol/L Normal 3.5-5.1 [facility] Comment on above: Performed By: #### L IPID, TSH, T7, CMP #### [facility] [address] [place] [address] Dr. Andrea Mccarthy Protein [Mass/Vol] 7.1 g/dL Normal 6.4-8.2 [facility] Comment on above: Performed By: #### L IPID, TSH, T7, CMP #### [facility] [address] [place] [address] Dr. Andrea Mccarthy Sodium [Moles/Vol] 140 mmol/L Normal 136-145 [facility] Comment on above: Performed By: #### L IPID, TSH, T7, CMP #### [facility] [address] [place] [address] Dr. Andrea Mccarthy Urea nitrogen [Mass/Vol] 23.0 mg/dL Critically high 7.0-18.0 [facility] Comment on above: Performed By: #### L IPID, TSH, T7, CMP #### [facility] [address] [place] [address] Dr. Andrea Mccarthy Urea nitrogen/Creatinine [Mass ratio] 17.6 mg/mg Normal [facility] Comment on above: Performed By: #### L IPID, TSH, T7, CMP #### [facility] [address] [place] [address] Dr. Andrea Mccarthy TSHon 11-14-2021 TSH 0.032 uIU/mL Critically low 0.358-3.740 [facility] Comment on above: Performed By: #### U KIM, MG, PHOS #### [facility] [address] [place] [address] Dr. Andrea Mccarthy UA RANDOM W/MICROSCOPICon BACTERIA NONE SEEN Normal NONE SEEN The [facility] Comment on above: Performed By: #### U KIM, MG, PHOS #### [facility] [address] [place] [address] Dr. Andrea Mccarthy Bilirubin Ql (U) Negative Normal NEGATIVE [facility] Comment on above: Performed By: #### U KIM, MG, PHOS #### [facility] [address] [address] [address] Andrea Mccarthy CAST NONE SEEN Normal NONE SEEN [facility] Comment on above: Performed By: #### U KIM, MG, PHOS #### [facility] [address] [address] [address] Andrea Mccarthy Clarity (U) CLEAR Normal CLEAR [facility] Comment on above: Performed By: #### U KIM, MG, PHOS #### [facility] [address] [address] [address] Andrea Mccarthy Color (U) YELLOW Normal YELLOW [facility] Comment on above: Performed By: #### U KIM, MG, PHOS #### [facility] [address] [place] [address] Dr. Andrea Mccarthy Crystals LM Nom (Urine sed) NONE SEEN Normal NONE SEEN [facility] Comment on above: Performed By: #### U KIM, MG, PHOS #### [facility] [address] [place] [address] Dr. Andrea Mccarthy Epithelial cells LM Ql (Urine sed) FEW Abnormal NONE SEEN /RARE The [facility] Comment on above: Performed By: #### U KIM, MG, PHOS #### [facility] [address] [place] [address] Dr. Andrea Mccarthy Glucose Ql (U) Negative Normal NEGATIVE The [facility] Comment on above: Performed By: #### U KIM, MG, PHOS #### [facility] [address] [place] [address] Dr. Andrea Mccarthy Hemoglobin Ql (U) TRACE-INTACT Abnormal NEGATIVE The [facility] Comment on above: Performed By: #### U KIM, MG, PHOS #### [facility] [address] [place] [address] Dr. Andrea Mccarthy Ketones Ql (U) Negative Normal NEGATIVE The [facility] Comment on above: Performed By: #### U KIM, MG, PHOS #### [facility] [address] [address] [address] Andrea Mccarthy LEUKOCYTES Negative Normal NEGATIVE [facility] Comment on above: Performed By: #### U KIM, MG, PHOS #### [facility] [address] [address] [address] Andrea Mccarthy MUCOUS SMALL Abnormal NONE SEEN [facility] Comment on above: Performed By: #### U KIM, MG, PHOS #### [facility] [address] [address] [address] Andrea Mccarthy Nitrite Ql (U) Negative Normal NEGATIVE [facility] Comment on above: Performed By: #### U KIM, MG, PHOS #### [facility] [address] [address] [address] Andrea Mccarthy pH (U) 5.5 [pH] Normal 5-9 [facility] Comment on above: Performed By: #### U KIM, MG, PHOS #### [facility] [address] [place] [address] Dr. Andrea Mccarthy RBC 0-2 Normal 0-2 [facility] Comment on above: Performed By: #### U KIM, MG, PHOS #### [facility] [address] [address] [address] Andrea Mccarthy SPEC GRAVITY 1.020 Normal 1.005-<=1.025 [facility] Comment on above: Performed By: #### U KIM, MG, PHOS #### [facility] [address] [place] [address] Dr. Andrea Mccarthy UA PROTEIN Negative Normal NEGATIVE/ TRACE The [facility] Comment on above: Performed By: #### U KIM, MG, PHOS #### [facility] [address] [place] [address] Dr. Andrea Mccarthy Urobilinogen Qn (U) 0.2 {Mikel'U}/dL Normal 0.2 - 1. 0 [facility] Comment on above: Performed By: #### U KIM, MG, PHOS #### [facility] [address] [address] [address] Andrea Mccarthy WBC NONE SEEN Normal NONE SEEN [facility] Comment on above: Performed By: #### U KIM, MG, PHOS #### [facility] [address] [address] [address] Andrea Mccarthy URIC ACID SERUMon 11-14-2021 Urate [Mass/Vol] 5.0 mg/dL Normal 2.6-6.0 [facility] Comment on above: Performed By: #### U KIM, MG, PHOS #### [facility] [address] [address] [address] Andrea Mccarthy URINE T PROTEIN CREAT RATIOo n 11-14-2021 Protein (U) [Mass/Vol] 22.3 mg/dL Critically high <=12.0 [facility] Comment on above: Performed By: #### U KIM, MG, PHOS #### [facility] [address] [address] [address] Andrea Mccarthy UR PROT CREAT RAT 0.15 Normal The [facility] Comment on above: Performed By: #### U KIM, MG, PHOS #### [facility] [address] [address] [address] Andrea Mccarthy URINE CREAT 151.50 mg/dL Normal 20.00-300.00 The [facility] Comment on above: Performed By: #### U KIM, MG, PHOS #### [facility] [address] [address] [address] Andrea Mccarthy Vital Signs Date Time Vital Sign Value Performing Clinician Facility 11-11-2023 12:58-0400 Body height 162.56 cm [facility] 11-11-2023 12:58-0400 Body mass index (BMI) [Ratio] 30 kg/m2 [facility] 11-11-2023 12:58-0400 Body weight 79.37 kg [facility] 11-11-2023 12:58-0400 Diastolic blood pressure 88 mm[Hg] [facility] 11-11-2023 12:58-0400 Systolic blood pressure 136 mm[Hg] [facility] 10-19-2023 12:21-0400 Body height 162.56 cm [facility] 10-19-2023 12:21-0400 Body mass index (BMI) [Ratio] 30.4 kg/m2 [facility] 10-19-2023 12:21-0400 Body temperature 98.3 [degF] [facility] 10-19-2023 12:21-0400 Body weight 80.39 kg [facility] 10-19-2023 12:21-0400 Heart rate 82 /min [facility] 10-19-2023 12:21-0400 Respiratory rate 16 /min [facility] 10-19-2023 12:21-0400 SaO2% (BldA) [Mass fraction] 96 % [facility] 05-21-2023 10:40-0500 Body height 162.56 cm Audie Dionne Other [facility] Other 05-21-2023 10:40-0500 Body mass index (BMI) [Ratio] 29.59 kg/m2 Audie Dionne Other [facility] Other 05-21-2023 10:40-0500 Body temperature 96.3 [degF] Audie Dionne Other [facility] Other 05-21-2023 10:40-0500 Body weight 78.2 kg Audie Dionne Other [facility] Other 05-21-2023 10:40-0500 Diastolic blood pressure 80 mm[Hg] Audie Dionne Other [facility] Other 05-21-2023 10:40-0500 Respiratory rate 18 /min Audie Dionne Other [facility] Other 05-21-2023 10:40-0500 SaO2% (BldA) [Mass fraction] 98 % Audie Dionne Other [facility] Other 05-21-2023 10:40-0500 Systolic blood pressure 118 mm[Hg] Audie Dionne Other [facility] Other 11-19-2022 11:00-0400 Body height 162.56 cm Audie Dionne Other [facility] Other 11-19-2022 11:00-0400 Body mass index (BMI) [Ratio] 28.9 kg/m2 Audie Dionne Other [facility] Other 11-19-2022 11:00-0400 Body temperature 96 [degF] Audie Dionne Other [facility] Other 11-19-2022 11:00-0400 Body weight 76.39 kg Audie Dionne Other [facility] Other 11-19-2022 11:00-0400 Diastolic blood pressure 81 mm[Hg] Audie Dionne Other [facility] Other 11-19-2022 11:00-0400 Respiratory rate 18 /min Audie Dionne Other [facility] Other 11-19-2022 11:00-0400 SaO2% (BldA) [Mass fraction] 98 % Audie Dionne Other [facility] Other 11-19-2022 11:00-0400 Systolic blood pressure 132 mm[Hg] Audie Dionne Other [facility] Other 07-02-2022 14:17-0400 Blood Pressure Location Iván TOMLIN [facility] 07-02-2022 14:17-0400 Diastolic blood pressure 88 mm[Hg] Iván TOMLIN [facility] 07-02-2022 14:17-0400 Heart rate 71 /min Iván TOMLIN [facility] 07-02-2022 14:17-0400 Systolic blood pressure 128 mm[Hg] Iávn TOMLIN [facility] 05-29-2022 10:40-0500 Body height 162.56 cm Audie Dionne Other [facility] Other 05-29-2022 10:40-0500 Body mass index (BMI) [Ratio] 28.22 kg/m2 Audie Dionne Other [facility] Other 05-29-2022 10:40-0500 Body temperature 96.3 [degF] Audie Dionne Other [facility] Other 05-29-2022 10:40-0500 Body weight 74.57 kg Audie Dionne Other [facility] Other 05-29-2022 10:40-0500 Diastolic blood pressure 81 mm[Hg] Audie Dionne Other [facility] Other 05-29-2022 10:40-0500 Respiratory rate 18 /min Audie Dionne Other [facility] Other 05-29-2022 10:40-0500 SaO2% (BldA) [Mass fraction] 98 % Audie Dionne Other [facility] Other 05-29-2022 10:40-0500 Systolic blood pressure 125 mm[Hg] Audie Dionne Other [facility] Other 11-21-2021 12:40-0400 Body height 162.56 cm Audie Dionne Other [facility] Other 11-21-2021 12:40-0400 Body mass index (BMI) [Ratio] 28.22 kg/m2 Audie Dionne Other [facility] Other 11-21-2021 12:40-0400 Body temperature 96.8 [degF] Audie Dionne Other [facility] Other 11-21-2021 12:40-0400 Body weight 74.57 kg Audie Dionne Other [facility] Other 11-21-2021 12:40-0400 Diastolic blood pressure 79 mm[Hg] Audie Dionne Other [facility] Other 11-21-2021 12:40-0400 Respiratory rate 18 /min Audie Dionne Other [facility] Other 11-21-2021 12:40-0400 SaO2% (BldA) [Mass fraction] 98 % Audie Dionne Other [facility] Other 11-21-2021 12:40-0400 Systolic blood pressure 117 mm[Hg] Audie Dionne Other [facility] Other 06-01-2021 16:20-0500 Body height 162.56 cm Audie Dionne Other [facility] Other 06-01-2021 16:20-0500 Body mass index (BMI) [Ratio] 30.89 kg/m2 Audie Dionne Other [facility] Other 06-01-2021 16:20-0500 Body temperature 96.5 [degF] Audie Dionne Other [facility] Other 06-01-2021 16:20-0500 Body weight 81.65 kg Audie Dionne Other [facility] Other 06-01-2021 16:20-0500 Diastolic blood pressure 80 mm[Hg] Audie Dionne Other [facility] Other 06-01-2021 16:20-0500 Respiratory rate 18 /min Audie Dionne Other [facility] Other 06-01-2021 16:20-0500 SaO2% (BldA) [Mass fraction] 98 % Audie Dionne Other [facility] Other 06-01-2021 16:20-0500 Systolic blood pressure 119 mm[Hg] Audie Dionne Other [facility] Other 03-27-2021 16:20-0500 Body height 162.56 cm Audie Dionne Other [facility] Other 03-27-2021 16:20-0500 Body mass index (BMI) [Ratio] 31.55 kg/m2 Audie Dionne Other [facility] Other 03-27-2021 16:20-0500 Body temperature 96.5 [degF] Audie Dionne Other [facility] Other 03-27-2021 16:20-0500 Body weight 83.37 kg Audie Dionne Other [facility] Other 03-27-2021 16:20-0500 Diastolic blood pressure 80 mm[Hg] Audie Dionne Other [facility] Other 03-27-2021 16:20-0500 Respiratory rate 18 /min Audie Dionne Other [facility] Other 03-27-2021 16:20-0500 SaO2% (BldA) [Mass fraction] 99 % Audie Dionne Other [facility] Other 03-27-2021 16:20-0500 Systolic blood pressure 119 mm[Hg] Audie Dionne Other [facility] Other Encounters Encounter Date Encounter Type Care Provider Facility Start: 11-11-2023 End: 11-11-2023 [facility] Work Phone: Start: 11-11-2023 End: 11-11-2023 Patient encounter procedure [facility] Physician [facility] Work Phone: Start: 11-07-2023 Non-patient / Non-visit [facility] [employer] [facility] [employer] Work Phone: Start: 10-19-2023 End: 10-19-2023 ambulatory [facility] Work Phone: Start: 10-19-2023 End: 10-19-2023 Patient encounter procedure [facility] Work Phone: Start: 05-21-2023 End: 05-21-2023 ambulatory Audie Dionne Other [facility] [employer] Other Start: 05-21-2023 Office outpatient vi sit 25 minutes Audie Dionne [facility] Start: 11-19-2022 End: 11-19-2022 ambulatory Audie Dionne Other [facility] Other Start: 11-19-2022 Office outpatient vi sit 15 minutes Audie Dionne [facility] Start: 09-06-2022 ambulatory DAYANA LOPEZ Facility: Start: 07-17-2022 End: 07-18-2022 ambulatory Iván TOMLIN Facility:[facility] Start: 07-17-2022 End: 07-17-2022 Patient encounter procedure Iván TOMLIN [facility] Start: 07-07-2022 End: 07-08-[address] IVÁN TOMLIN . Facility:[facility] Start: 07-02-2022 End: 07-03-2022 ambulatory MD AUDIE TRUONG Facility:[facility] [place] Start: 07-02-2022 End: 07-02-2022 Patient encounter procedure Iván TOMLIN [facility] Start: 05-31-2022 ambulatory MD AUDIE TRUONG Facility :[facility] Start: 05-29-2022 End: 05-29-2022 ambulatory Audie Dionne Other [facility] Other Start: 05-29-2022 Office outpatient vi sit 25 minutes Audie Dionne [facility] Start: 05-21-2022 End: 05-22-2022 ambulatory DAYANA LOPEZ Facility:[facility] Start: 12-30-2021 End: 12-31-2021 ambulatory DAYANA LOPEZ Facility:[facility] Start: 11-21-2021 End: 11-21-2021 ambulatory Audie Dionne Other [facility] Other Start: 11-21-2021 Office outpatient vi sit 25 minutes Audie Dionne [facility] Start: 11-14-2021 End: 11-15-2021 ambulatory AUDIE DIONNE Facility: Start: 06-02-2021 End: 06-02-2021 ambulatory Audie Dionne Other [facility] Other Start: 06-02-2021 Telephone encounter Audie Dionne [facility] Start: 06-01-2021 End: 06-01-2021 ambulatory Audie Dionne Other [facility] Other Start: 06-01-2021 Office outpatient vi sit 25 minutes Audie Dionne [facility] Start: 03-27-2021 End: 03-27-2021 ambulatory Audie Dionne Other [facility] Other Start: 03-27-2021 Office outpatient ne w 45 minutes Audie Dionne [facility] Procedures Date Procedure Procedure Detail Performing Clinician Start: 01-08-2019 Esophagogastroduodenoscopy Iván TOMLIN Abdominal hysterectomy Clarence TOMLIN Appendectomy Iván TOMLIN Colonoscopy Iván TOMLIN Plan of Treatment Date Care Activity Detail Author Renal function 1999 panel - Serum or Plasma [facility] enter [facility] Payers Date Payer Category Payer Private Health Insurance [id number] 1950 Unknown [id number] 2.16.8 [id number] 1950 Unknown [id number] 2.16.8 [id number] 1950 Unknown [id number] 2.16.84 [id number] 1950 Unknown [id number] 2.16.84 [id number] 1950 Unknown [id number] 2.16.84 [id number] 1950 Unknown [id number] 2.16.84 [id number] 1950 Unknown [id number] 2.16.84 [id number] 1950 Unknown [id number] 2.16.84 [id number] Self-pay Self Pay [id number] Unknown [id number] Social History Date Type Detail [facility] Start: 1950 Sex Assigned At Female [facility] Sex Assigned At [facility] Start: 07-02-2022 End: 10-19-2023 Tobacco smoking status Never smoked tobacco (finding) [facility] Tobacco smoking status Never [facility] Goals Date Patient Goal Desired Activity /State Functional Status Date Assessment Result Facility 07-02-2022 Functional Status N/A [facility] Clinical Notes 03-27-2021 to 05-21-2023 Note Date [...] stain. Monitor LFTs and lipid profile periodically. [facility] Other 07-31-2023 Evaluation note* Encounter Date Diagnosis [...] advised to have repeat in 5 yrs [facility] Other 03-28-2023 Note [id number]#[id number]:[address] [place] [address] 07-17-2022 Hospital Discharge instructions Patient Education 07/17/2022 [...] Address: [facility] [address] [place] [address]- Business (1) When: Unknown Comments:Call for any problems. [facility]03-28-2023 NoteCustom Cystoscopy ? Voiding after the procedure: [...] if you have a fever over 100 degrees.[facility] 07-02-2022 NoteChief Complaint Pt here for referral for microscopic hematuria [facility] Staff New patient referral from Dr. [...] When Contact Information KELLY BLACKMON, Iván Hsu, [facility] [address], [place] [address]- Additional Instructions: schedule cysto, CHRIS Patient Education [...] tab(s), Oral, q6hr fluticasone 0.05 mg/inh Nasal [place], 2 spray(s), Nasal, Daily (more content not included)...[facility]Result Comment: Electronically Signed By: Iván TOMLIN MD\.br\Date and Time Signed: 07/02/22 14:52 EDT\.br\Electronically Co-Signed By: Moira Estrada\.br\Date and Time Co-Signed: 07/02/22 14:50 [id number] Hospital Discharge instructions Patient Education 07/02/2022 14:22:27 [...] Follow these instructions at home: Medicines Take aoqg-dij-tuhgots and prescription medicines only as told by [...] or the blood stops without treatment. Take [id number]-ommedkv and prescription medicines only as told by your health care provider. Drink enough fluid to keep your urine clear or pale yellow. This information is not intended to replace advice given to you by your health care provider. Make sure you discuss any questions you have with your health care provider. Document Released: 04/08/2006 Document Revised: 09/02/2019 Document Reviewed: 05/11/2017 [employer] Patient Education 2020 [employer] Follow Up Care 05/31/2022 13:31:32 With:KELLY BLACKMON, Iván Hsu, URL Address: [facility] [address], [place] [address]- When: Unknown [facility] 02-07-2023 Evaluation note* Encounter Date Diagnosis Assessment [...] slow down the progression of CKD. May, [place] w cr kid I-IV (ICD-10 - [...] advised to have repeat in 5 yrs [facility] Other 08-02-2022 Evaluation note* Encounter Date Diagnosis [...] stain. Monitor LFTs and lipid profile periodically. [facility] Other 02-10-2022 Evaluation note* Encounter Date Diagnosis [...] stain. Monitor LFTs and lipid profile periodically. [facility] Other 12-06-2021 Evaluation note* Encounter Date Diagnosis [...] PCP. Mar, Dyslipidemia (ICD-10 - E78.5) Continue [facility]. Monitor LFTs and lipid profile periodically. [employer] Other Evaluation + Plan note Future Appointments Appointment Date:07/10/2022 11:30:00 AM Scheduled Provider: Location:[facility] Appointment Type:Urology CALL PAT FT Appointment Date:07/17/2022 08:45:00 AM Scheduled Provider: Location:[facility] Appointment Type:Urology FT Diagnostic Tests Pending * Urine Cytology ([facility]) 07/02/22 [facility] evaluation noteNo Assessments Information Available [facility] CtrEvaluation noteNo InformationNort [employer] Other Evaluation noteNo assessment information available [facility] Work Phone: Evaluation note* Diagnosis Onset Date Resolution Status Maxillary sinusitis, acute a cute Anemia of renal disease acut e CKD (chronic kidney disease) stage 3, GFR 30-59 ml/min acute Hyperlipidemia acute [id number] acute Hypomagnesemia acute Secondary hyperparathyroidism acute [facility] Work Phone: History general Narrative - Reported* Type Description Date Medical History HTN Medical History Hypothyroidism Medical History hyperlipidemia Medical History acid reflux Medical History anxiety Medical History PRE DIABETIC Medical History mixed hypercholestolemia Medical History CKD STAGE 3 Medical History INSOMNIA Surgical History hysterectomy, total with BSO Surgical History fallopian tube removed Hospitalization History see above hx Hospitalization History N&V [facility] Other Hismepj general Narrative - Reported* Type Description Date [...] History see above hx Hospitalization History N&V [facility] Other Hospital course Narrative No data available for this section [facility] progress note No data available for this section [facility] Summary Purpose Family History Relationship Condition Age [...] disease) stage 3, GFR 30-59 ml/min Hyperlipidemia [id number] Hypomagnesemia Secondary hyperparathyroidism Additional Source Comments REASON [...] and content) DATE CREATED AUTHOR 07/24/2022 Adama Grimes [facility] DATE CREATED AUTHOR AUTHOR'Ferddy MAURICE ATDESI 09/05/2022 [facility] Goals (unrecognized [...] BE BASED ON THE PRIMARY CLINICAL RECORDS. [employer] provides no warranty or guarantee of the accuracy or completeness of information in this document.
== END 2024-03-04 09:22 | disposition home or self-care (01) ==
LOC: MAMMO 09:21
PROVIDERS: PCP Nurse Practitioner Family; Visit Provider Nurse Practitioner Family
DX: Z12.31 Encounter for screening mammogram for malignant neoplasm of breast (principal)
CPT/HCPCS: 77063; 77067

== ENCOUNTER 2024-05-05 08:20 | Outpatient (OUT) | payer MEDICARE, SELFPAY ==
--- OUTSIDE RECORDS SUMMARY | 2024-05-05 08:34 | XMS_ITS | CCD ---
Author Organization [facility] CliniSyga Care Team Providers Care Multi Site Leasing Consultant Name Role Phone Audie Truong Unavailable YARITZA PEPPER Primary Care Physician MD AUDIE TRUONG Referring Unavailable Iván TOMLIN Attending Unavailable KELLY, Iván Hsu Referring Unavailable Iván TOMLIN Attending Unavailable Iván TOMLIN Admitting Unavailable JOHN, YARITZA Attending Unavailable JOHN, YARITZA Admitting Unavailable JOHN, YARITZA Primary Care Unavailable JOHN, YARITZA Consulting Unavailable JONH, YARITZA Attending Unavailable JOHN, YARITZA Admitting Unavailable JOHN, YARITZA Primary Care Unavailable TOMLIN ., DR FALCON Admitting Unavailable TOMLIN ., DR FALCON Consulting Unavailable TOMLIN ., DR FALCON Attending Unavailable JOHN, YARITZA Primary Care Unavailable Danielle Cam Consulting Unavailable JOHN, YARITZA Primary Care Unavailable DIONNE, AUDIE Admitting Unavailable DIONNE, AUDIE Consulting Unavailable DIONNE, AUDIE Attending Unavailable JOHN, YARITZA Attending Unavailable UTE, DR MONTENEGRO Referring Unavailable JOHN, YARITZA Admitting Unavailable JOHN, YARITZA Primary Care Unavailable STEPHEN ROBLES Consulting Unavailable YARITZA LOPEZ Consulting Unavailable DIONNE, AUDIE Admitting Unavailable DIONNE, AUDIE Consulting Unavailable DIONNE, AUDIE Attending Unavailable JOHN, YARITZA Primary Care Unavailable Allergies Allergy Classification Reported Allergen(s) Allergy Type Date of Onset Reaction(s) Facility (1 source) No Known Medication Allergies; Translations: [No Known Medication Allergies] Propensity to adverse reactions (disorder) [facility] Repository Medications Current Medications Medication Drug Class(es) Dates Sig (Normalized) Sig (Original) alendronic acid 70 mg oral tablet (10 sources) Bisphosphonate Start: 10-19-2023 take 1 tablet by mouth every week Alendronate 70 mg tablet Active 70 MG PO every week October 18, 2023 11:00pm take 1 tablet by mouth every wee k Alendronate Sodium 70 MG 1 Tablet orally weekly Active amoxicillin 875 mg / clavulanate 125 mg oral tablet (3 sources) Penicillin-class Antibacterial Start: 05-03-2024 take 1 tablet by mouth twice daily Amoxicillin-Pot Clavulanate 875-125 mg tablet Active 1 TAB PO Twice daily 08 02May 03, 2024 12:00am Start: 10-19-2023 End: 11-11-2023 take 1 tablet by mouth every twelve hours Amoxicillin-Pot Clavulanate 875-125 mg tablet Discontinued 1 TAB PO Every 12 hours 08 02October 18, 2023 11:00pm November 11, 2023 12:01pm aspirin 81 mg oral tablet (2 sources) Platelet Aggregation Inhibitor, Nonsteroidal Anti-inflammatory Drug Start: 01-01-2019 take 1 tablet by mouth once daily aspirin 81 mg oral tablet 81 mg = 1 tab(s), Oral, Daily Start Date: 01/01/19 Status: Ordered 24 hr buPROPion hydrochloride 300 mg extended release oral tablet (10 sources) Aminoketone Start: 10-19-2023 take 1 tablet by mouth once daily Bupropion Hcl 300 mg tablet extended release 24 hr Active 300 MG PO Daily October 18, 2023 11:00pm take 1 tablet by lester th every twenty-four hours buPROPion HCl ER (XL) 300 MG 1 tablet in the morning Orally Once a day Active calcium carbonate 1500 mg oral tablet (3 sources) Start: 10-19-2023 Calcium Carbonate (Calcium 600) 600 mg calcium (1,500 mg) tablet Active 1200 MG PO Daily October 18, 2023 11:00pm cetirizine hydrochloride 10 mg oral tablet (4 sources) Histamine-1 Receptor Antagonist take 1 tablet by mouth every twenty-four hours Cetirizine HCl 10 MG 1 tablet Orally Once a day Active cholecalciferol 0.05 mg oral capsule (3 sources) Vitamin D Start: 10-19-2023 take 1 capsule by mouth once daily Cholecalciferol (Vitamin D3) 50 mcg (2,000 unit) capsule Active 50 MCG PO Daily October 18, 2023 11:00pm dicyclomine hydrochloride 20 mg oral tablet (2 [...] day Active take 1 tablet by lester every twenty-four hours Ferrous Sulfate 325 (65 Fe) MG 1 tablet Orally Once a day Active fluticasone propionate 0.05 mg/actuat metered dose nasal spray (1 source) Corticosteroid Start: 05-03-2024 Fluticasone Propionate 50 mcg/actuation spray,suspension Active INTRANASAL May 03, 2024 12:00am fluticasone 0.05 mg/inh Nasal [place] (2 sources) Start: 01-01-2019 take 2 spray(s) nasal route once daily fluticasone 0.05 mg/inh Nasal [place] 2 spray(s), Nasal, Daily, each nostril Start Date: 01/01/19 Status: Ordered Grape Seed Complex - (3 sources) take 300 mg by mouth once daily Grape Seed Complex - 300mg Orally daily Active Hydrochlorothiazide -25 mg 25 MG (3 sources) take 1 tablet by mouth once daily in the morning Hydrochlorothiazide-25 mg 25 MG 1 tablet in the [...] Ordered levothyroxine sodium 0.15 mg oral tablet (12 sources) l-Thyroxine Start: 10-19-2023 take 1 tablet by mouth once daily Levothyroxine 150 mcg tablet Active 150 MCG PO Daily October 18, 2023 11:00pm Start: 01-01-2019 take 1 capsule by mo [facility] once daily levothyroxine 125 mcg (0.125 mg) [...] Active losartan potassium 100 mg oral tablet (12 sources) Angiotensin 2 Receptor Reinier Start: 10-19-2023 take 1 tablet by mouth once daily Losartan 100 mg tablet Active 100 MG PO Daily October 18, 2023 11:00pm Start: 01-01-2019 take 1 tablet by mouth once da tc losartan 100 mg Tab 100 mg = 1 tab(s), Oral, Daily Start Date: 01/01/19 Status: Ordered lovastatin 40 mg oral tablet (12 sources) HMG-CoA Reductase Inhibitor Start: 10-19-2023 take 1 tablet by mouth once daily Lovastatin 40 mg tablet Active 40 MG PO Daily October 18, 2023 11:00pm Start: 01-01-2019 take 1 tablet by lester th once daily lovastatin 40 mg Tab 40 mg = 1 tab(s), Oral, Daily Start Date: 01/01/19 Status: Ordered magnesium oxide 400 mg oral capsule (2 sources) Start: 11-11-2023 take 1 capsule by mouth once daily Magnesium Oxide 400 mg magnesium capsule Active 400 MG PO Daily November 10, 2023 11:00pm methylsulfonylmethane 500 mg oral capsule (1 source) take 1 capsule by mouth every twenty-four hours MSM 500 MG 1 Capsule Orally daily Active metoprolol tartrate 25 mg oral tablet (2 sources) beta-Adrenergi c Reinier Start: 01-01-2019 take 1 tablet by mouth twice daily Metoprolol tartrate 25 mg Tab 25 mg = 1 tab(s), Oral, BID Start Date: 01/01/19 Status: Ordered MSM 500 [...] omeprazole 40 mg delayed release oral capsule (10 sources) Proton Pump Inhibitor Start: 10-19-2023 take 1 capsule by mouth once daily Omeprazole 40 mg capsule,delayed release(DR/EC) Active 40 MG PO Daily October 18, 2023 11:00pm take 1 capsule by mo [facility] every twenty-four hours Omeprazole 40 MG 1 [...] Active raloxifene hydrochloride 60 mg oral tablet (10 sources) Estrogen Agonist/Antagonis t Start: 10-19-2023 take 1 tablet by mouth once daily Raloxifene 60 mg tablet Active 60 MG PO Daily October 18, 2023 11:00pm take 1 tablet by [facility] every twenty-four hours Raloxifene HCl 60 MG 1 Tablet orally Daily Active traZODone hydrochloride 50 mg oral tablet (1 source) Serotonin Reuptake Inhibitor Start: 05-03-2024 take 1 tablet by mouth once daily at bedtime Trazodone 50 mg tablet Active 50 MG PO Daily at bedtime May 03, 2024 12:00am triamcinolone acetonide 0.001 mg/mg topical ointment (1 source) Corticosteroid Start: 05-03-2024 Triamcinolone Acetonide 0.1 % ointment Active APPLIC TOPICAL May 03, 2024 12:00am Vitamin B 12 500 MCG (4 sources) [...] procedure, # 2 tab(s), Refills(s) 0, Pharmacy: [facility]/pharmacy #[id number], 162, cm, 07/02/22 14:24:00 EDT, Height/Length Dosing, 74, kg, 07/02/22 14:24:00 EDT, W... Start Date: 07/02/22 Status: Ordered montelukast 10 mg oral tablet (12 sources) Leukotriene Receptor Antagonist Start: 10-19-2023 End: 05-03-2024 take 1 tablet by mouth once daily Montelukast 10 mg tablet Discontinued 1 TAB PO Daily October 18, 2023 11:00pm May 03, 2024 10:04am FreeTextSi Tablet orally daily; Note: Source Status: Taking; Provider: Dionne Bronson ( ) Start: 01-01-2019 take 1 tablet by lester once daily in the evening montelukast 10 mg Tab 10 mg = 1 tab(s), Oral, qPM Start Date: 01/01/19 Status: Ordered Problems Active Problems Problem Classification Problem Date Documented Date Episodic/Chronic Abdominal pain (4 sources) Epigastric pain; Translations: [Periumbilical pain] 01-06-2019 Episodic Anxiety disorders (7 sources) Anxiety; Translations: [Anxiety disorder, unspecified] Chronic Biliary tract disease (2 sources) Biliary calculus 01-06-2019 Episodic Chronic kidney disease (20 sources) Chronic kidney disease stage 3; Translations: [...] Chronic Other diseases of kidney and ureters (9 sources) Secondary hyperparathyroidism; Translations: [Secondary hyperparathyroidism of [...] nutritional; endocrine; and metabolic disorders (2 sources) Hypomagnesemia; Translations: [Hypomagnesemia] 11-09-2023 Chronic Other nutritional; endocrine; and metabolic disorders (1 source) Hypomagnesemia; Translations: [Disorders of magnesium metabolism] 11-11-2023 Chronic Other screening for suspected conditions (not mental disorders or infectious disease) (2 sources) CT of abdomen abnormal 01-06-2019 Episodic Other upper respiratory infections (4 sources) Chronic sinusitis, unspecified; Translations: [CHRONIC SINUSITIS UNSPECIFIED] Onset: Chronic Other upper respiratory infections (3 sources) Acute maxillary sinusitis; Translations: [Acute maxillary [...] distribution width (RBC) [Ratio] 13.8 % 11.0-15.0 [facility] Estimated glomerular filtrat ion rate (GFR) non- Americanon 11-07-2023 GFR/1.73 sq M.predicted among non-blacks MDRD (S/P/Bld) [Vol rate/Area] 35 mL/min/{1.73_m2} Low >=60 [facility] Hematocrit Auto (Bld) [Volum e fraction]on 11-07-2023 Hematocrit (Bld) [Volume fraction] 38.7 % 36.0-48.0 [facility] Hemoglobin [Mass/volume] in Bloodon 11-07-2023 Hemoglobin (Bld) [Mass/Vol] 11.9 g/dL Low 12.0-16.0 [facility] Laboratory - Chemistry and C hemistry - challengeon 11-07-2023 Albumin [Mass/Vol] 3.1 g/dL Low 3.4-5.0 [facility] Calcium [Mass/Vol] 8.7 mg/dL 8.5-10.1 [facility] Chloride [Moles/Vol] 103 mmol/L 98-107 [facility] CO2 [Moles/Vol] 28.9 mmol/L 21.0-32.[address] [facility] Creatinine [Mass/Vol] 1.46 mg/dL High 0.55-1.02 [facility] GFR/1.73 sq M.predicted MDRD (S/P/Bld) [Vol rate/Area] 43 mL/min/{1.73_m2} Low >=60 [facility] Glucose [Mass/Vol] 100 mg/dL 74-106 [facility] Magnesium [Mass/Vol] 1.6 mg/dL Low 1.8-2.4 [facility] Potassium [Moles/Vol] 3.8 mmol/L 3.5-5.1 [facility] Sodium [Moles/Vol] 141 mmol/L 136-145 [facility] Urate [Mass/Vol] 5.3 mg/dL 2.6-6.[address] [facility] Urea nitrogen [Mass/Vol] 21.0 mg/dL High 7.0-18.0 [facility] Urea nitrogen/Creatinine [Mass ratio] 14.4 mg/mg [facility] Bilirubin Ql (U) Negative NEGATIVE [facility] Glucose (U) [Mass/Vol] Negative NEGATIVE [facility] Ketones Ql (U) Negative NEGATIVE [facility] pH (U) 6.0 [pH] 5.0-9.0 [facility] Specific gravity (U) [Rel density] >=1.030 Abnormal 1.005-1.025 [facility] Urobilinogen Qn (U) 0.2 {Mikel'U}/dL 0.2-1.0 [facility] Laboratory - Specimen inform ationon 11-07-2023 Appearance (U) CLEAR CLEAR [facility] Color (U) LT. YELLOW YELLOW [facility] Laboratory - Urinalysison Hyaline casts LM Ql (Urine sed) RARE [facility] Leukocyte esterase Test strip Ql (U) MODERATE Abnormal NEGATIVE [facility] Mucus Ql (Urine sed) SMALL Abnormal NONE SEEN [facility] Nitrite Ql (U) Negative NEGATIVE [facility] Protein Ql (U) TRACE mg/dL NEG/TRACE [facility] Leukocytes [#/volume] correc milagros for nucleated erythrocytes in Blood by Automated counon 11-07-2023 WBC corrected for nucl RBC Auto (Bld) [#/Vol] 7.5 10 3/uL 4.0-11.0 [facility] MCH Auto (RBC) [Entitic mass ]on 11-07-2023 MCH (RBC) [Entitic mass] 27.2 pg 26.7-34.0 [facility] MCHC Auto (RBC) [Mass/Vol]on 11-07-2023 MCHC (RBC) [Mass/Vol] 30.7 g/dL 29.9-35.2 [facility] MCV Auto (RBC) [Entitic vol] on 11-07-2023 MCV (RBC) [Entitic vol] 88.4 fL 81.0-99.0 [facility] No Panel Informationon 11-06 25-Hydroxy Vitamin D Total 83.6 ng/mL [facility] Comment on above: <20 ng/mL Vit D defi cient20-<30 ng/mL Vit D cmhxtuecgoni89-508 ng/mL Vit D sufficient>100 ng/mL Potential Toxicity Parathyroid Hormone (Intact) 70 pg/mL Abnormal 15-65 [facility] Comment on above: Performed at: [facility] [address] [id number] Director: Rich Camejo PhD, Phone: [phone] Phosphorus Level 3.2 mg/dL 2.6-4.[address] [facility] Urine Bacteria SMALL #/HPF Abnormal NONE SEEN [facility] Urine Occult Blood SMALL Abnormal NEGATIVE [facility] Urine Other Casts SEEN #/LPF Abnormal NONE SEEN [facility] Urine Other Crystals None Seen #/HPF None Seen [facility] Urine RBC 0-2 #/HPF 0-2 [facility] Urine Squamous Epithelial Cells MANY #/LPF Abnormal NONE/RARE [facility] Urine Transitional Epithelial Cells MANY #/LPF Abnormal NONE SEEN [facility] Urine WBC 10-20 #/HPF Abnormal NONE SEEN [facility] Platelet mean volume Auto (B ld) [Entitic vol]on 11-07-2023 Platelet mean volume (Bld) [Entitic vol] 12.6 fL 9.5-13.5 [facility] Platelets Auto (Bld) [#/Vol] on 11-07-2023 Platelets (Bld) [#/Vol] 163 10 3/uL 150-450 [facility] RBC Auto (Bld) [#/Vol]on RBC (Bld) [#/Vol] 4.38 10 6/uL 4.20-5.40 [facility] Serum or plasma anion gap de terminationon 11-07-2023 Anion gap [Moles/Vol] 12.9 mmol/L [facility] Coding Summary.on 07-19-2022 Coding Summary. CD:[id number] Ww+PGhlYWQ+XF2KWBPuG 22dqYSooX5rB1IUDCqYF ywgQVBQTElOSyIgbmFtZ F7zlCXyRUBs IC8+CS7yYLNmZihslHSr n6Q1fPT6G57kqi3dDGyu hVC4ENYsLoTgbdlwn3ar zUu8TDwqLkaxPgEn XZMtfH41XAO0vA74Cb64 zNUlxLInp5vsxDc7KyKc NDAlYTS3lXctSYxoo2Gg JHTbH75xjMAny1Y9 IGNvbGxhcHNlOyBlbXB0 zP4gTQjqpptml4ejeuhm Kkv1nw51nCSsz3F8eDT7 N1OojcF4HFArhYKz TjrawSJOoO8alktwy2kf viaiPcTuQPMjYYg5NWt8 MTXuqRirGuHgRI83RRJ1 NLRwepKwY0PnRGIw xIuxByN6y5I4Za9DK4SL AcqkV2AIMQQINHnifNB+ SR17jv19S3TkDlcgVsv7 PTEpYJM3zBH4yQ4w IYNhNThpo6A8gLL9G6Fb tyLeky5jp1haLKSvHIqh J29ydRRjg4P3DUDmqFW9 JJTjyCqxEnEyoD26 Oyc+KBIrjEwli7EhHxbe s8qaq3stiYq3SysaAWLw hjRnnBnzUYV1j4TrVq6q DRJrrHP3iNC3lO1k CdJiOpA3IMkyC526YaWq pKGwDiapB24tN8OadNX+ ELHiWtc7CFLfwQniUB4a S9ZfEODasanemBPf zJgcHY5rFFSworfnMAWf xT1eGNFyU7q1YdNmLqQ3 MXyzV4DzSWNipixyRu38 eE0iRcAaYmB1LTyk Z7WisjM1LOKfpVZaYNpd COY6I54kc5P1IKHzGPKf MSC2pIJ5xE1vqClzmpsw bGVmdDsgdmVydGlj NQbvHRvfW348EUXihZsq PkNvZGluZyBEYXRlOiAg MDMvMzAvMjAyMzwvdGQ+ VUVdRKT3dTylWKZk jMDeBPlrZg0wlDbshPig AO2sUNIdzwhuXTGueP1w DVZmgWBnpEetSL2tIYNs xgenx336UaUaQPI8 HJXknQZlD6TmvC8iNoVb SRDtCSLrO3QhuVAoUTqh C107BXclLzW7QWYspkXo A0FeTZQyiQszEzM6 p9H3Qn4Co7KdlsjhK0Yt uXDeCgLeCcacEPz9D9Rf PjwvdHI+JA21DDWxDS48 SEp4NCE9mBreOOtn MUPrD1SreX7nXzGsZPAd ZGRkOyc+PHRhYmxlIHdp ZHRoPScxMDAlJyBzdHls AB9tOu4wBLMfYRUy dRqhtZNdTzNpm6mkSDHr BRcnBM3krYfsK8PstKT8 CVUiq1x8Kk77O98fF2Kr dXA+RCKnnMF4bWP3 xL5xQrCqRqH3WQusJ481 ApDxmRXuAcpux0fdm8iu hKq0XqR2SUKmdhPevKof LOY3a2UiWn87K95w IHdpZHRoPSIxNSUiIHZh oPcris5vyE7oAe7+PGNv yUG1hUT7eM2tHpTdNqC6 PAsqL676RgBpyOBc Jodwq8fbe5elbWb6NjNq AXOfktFelGhpXQZ0i1Rj Gh33X0XktCgnr4RhWen8 rc31eEMzp9S3rVK7 I7EkYERjykzpbRIdiVsa FF6hUREujstvWCWyoP5k RMHsV8i0KsOkXdL9HPjw V4HuvdG8TSHizHOd GMKnhEJScM6orrfgf9gw tcddJxLjXYGhQFk3OIi0 BCCicKwrEaUsOHB9XoC3 SKF8oOCosD1nkAxk supcuA9kDvd+PKI0zIOe sUJSXD0cSlnhjAL+PHRk PJZ7bCkwLOdaSRTroS9x VVZwV8g2ShEePsG6 HLrbL2KpbvW5FVImxKHd BXKiqOVFjZ9igzpnq4wz saybSaJvWERwSVq1HWu3 LWFsaWduOiBsZWZ0 CjD1TND1rOUikN9izLjp djzufV7vPam+QmlydGgg VGO7SIf1T9LcAzt8VORq kYaqOD9ufTOaFWde Xe8ygBfhoOgiDB3dTLUj qdknd809OsCal3mwEPMn kQYyYAorKTD7Y97eb0K9 DQWoQDHyLAY2jUQ0 gM2xbNgtatzzcOVcbYmr siFpiGgpOIcoBTdbV464 ZJTpeJqcFrAxJWl5P6Ln Ucz3PLRsjBksXV1v qNStRJofEx5vnGqjkRbj GM7kDAErbiliv094CeJk y2cxGYSglCBpODgqTXH3 A87pj9L9YDCgGDIn XHA2rHK3tD9crPxsgvqc bGVmdDsgdmVydGljYWwt KJejW596QWXmjRfbExGg kOe7N9LiBnx6XKAp yBvzIT6yvIVkDCnuXg3q qAesjTnyAZ1aRBXekfmu b267NwDbn0aaVQPicYXm YFbrEEZ4D45bo0V2 OUMlLWYoCKJ8eDE9rB7q bGlnbjogbGVmdDsgdmVy uEloXLiyEWvrB207COIe cDsnPlBhdGllbnQg SHcfXQu9O5DfAvyzgPG+ OZ17FSJtET30oVNwbYPv f7svvDe8RyQzPRKaLRX0 qTeyWTbdm2MrMUDd G51rsYXyy8P6ZECxnBsi oTUpKrOfySE8aX3wSZwp lddrk3fvdtqcAvebf4nt sv33gA95A69jNSpc ZHRoPSIzMCUiIHZhbGln wq0qiC5xZl3+PGNvbCB3 eYD0gY7gYEGeBoN1ILdi Z196UeJazSHkGvig u9buc0rysAm0PiF3IRVn whTrvEieNJC7c7KcMm10 E91iBIecICEcBPHeSEIe THGkwZpsio1qsZ2j Ii8+FFOulJA7yZX0zT8r TmZgQsE0TAtaZ747PjMr kVFqFovhZ31xS3ZksHM+ JZZrHyk0CONkzPsw WO8czYPyZEwsBy8rRCO3 WnPsFdIbFQfiV3VgMZHa xibhlbahiMF2XAJaJNQc zB77Ne1abSghPPAd kWSWhX9dhhkjc9yeqpli SfMrYTOgCSh5PWa9HDEo oGunOeVaGOR4DuI4UWW3 qQSfiW1brFgjvccx bU4pZ9CaHPPtnhmmZh97 bY5dTwNmCaT5OLinErk+ N7MAUuJBWDHOSXPXI6IH TkUgQTwvdGQ+PHRk JRH4hLptBGbbDELaqZ2c YGSsU3c3IqCiQuZ9OJwh Q4TfYEKckyvyFy94iM9a OfVxDfA2DObhB4Bx ctW2DGZmrQLpZXwcMFX3 F80rq8M6MQTcATDoZEH8 bUZ7aY1jsYqgpimleXRa dDsgdmVydGljYWwt CNsvL143VRPstRasHbBm GvCwSoN1JFZ0I9EtFqj8 HCMzvXtkLH2jhQUiUEuq Bt3nrQfchZmcAK5r AEEycwypMANkwU0rTMFq dEHznOwoVZ8pKOQexqsv z049VpHmRLS1PDKfmHGi J7MspB1eNnKrHKOg MDQuP7AbtRYeRGacO298 MTxmFcB4QCHpwnDqL4Ch ULZyyGfmCsJ2h9C1Wl42 MCBZZWFyczwvdGQ+ YJAbHLC9zNwoNYegLNRk jY0rKIGaG4m4GrBvWuS5 PFboI4DcGXPktaojNt73 zM9fKhOfXrY0UHne F8IktnW1XIVcxBJmCWrs DWE0X32dy3C1HGTeXEIm XGH7qDY0dU9gxTazmupw bGVmdDsgdmVydGlj OWfmOLlwG551DGFppWoo PkZlbWFsZTwvdGQ+PHRk INA3xVgbWUqoXCAkwE4e CBQvY3n8PlEkYxE9 TZbxU5WqVOXkfskfTd04 cE3uIaEvDzR3ZUaeN9Tz ueT5AZGtuEThBWnyFYF9 H15dk3P5BISzGAJu KOX7vXK8iO7ajDyvkbmt bGVmdDsgdmVydGljYWwt UZbtG884USLvrMnkNk48 mSBlzIavtvH5A1Yo PjwvdHI+TB58JWQpRU51 fKBkiYDjg1cxdXb2NoJz EIReOAE3yRueGNful1Mt DFAaC13ooJLuf7G3 IGNvbGxhcHNlOyBlbXB0 pF4eYIhmyplqy3gcdfem Isjqg8hjnl71bQ60B10u IHdpZHRoPSIzMCUi CQEbxDpbdg9emY7jGm6+ ZJWmxTP6hRY0wA6pRyBe LmD4ZXkyF421FrRkjQWn Sygcf3hjj9henEb6 IjIwJSIgdmFsaWduPSJ0 m5XgNz79F00yBNlcSHIp LZLaDEIyFGFsySeebp6f zI8iVx9+GW7ku9ic jq50oH31wOE+PHRkIHN0 rMmkRExmPHEkuD0oOMtk LsI6MQZqZeSakT84nVPt ZJxbQn0bmMztuPwt EZ7hSLJqvosei256ChGf z8soMFAmsXHlAHhqJNZ0 P48um9R8TYMzDUVnRWR7 xLT2xP3vdNvegfud bGVmdDsgdmVydGljYWwt ZVxhQ579UIYotJfjEuSf kUTgK3wtdlVETK8qUlsu dGQ+ZNMyLXH7uZva NBmpLKHmaF9oJTGhG9f9 VvRkRdV6XZpiY3FoyaX1 PLCbtXLeDFAvlCOZfU0e xcich5ximejoFtKf HZIgXQq0XLt8TANyyJyu VqTvKSO7FvE8RUW5vFLn kJ6zeYubusunzQ2eQky+ RklOOjwvdGQ+PHRk YPH4hEuhBGocGAPrnX9p FVZfL0a7VkQtBtG3DVgn F6XlhyB3CJBzuGXbKVYj fPWPqA1qgyfdl1qc kqpoLvZoHLNyRXo8AAj8 JTCspBrdVgJgQVY0ByU7 YMD9pMFirJ4dcZkwqgmk mP6qHcq+TVJOOjwv dGQ+FAKnJRF3xXwmFAxo YMDdrY0nMDBqT6x9WjFh VyM5NWnpK2CttrM7LRSg eUSvNAUciXOJnZ2x ehezv4qietrdXbXbAOXv CCp7QDg3FAQysPyfXvWa ZWH5McK5HGO9hQNikM5j xVmvevinsX8yAtp+ AZQ8BIU9IF42QA23L4Ij PjwvdGFibGU+PHRhYmxl IHdpZHRoPScxMDAlJyBz rOkfGY4oRx2iVUKh LWNvbGxh (more content not included)... [facility] Consent for Procedure/Surger yon 07-17-2022 Consent for Procedure/Surgery [id number] 0#[id number]:127 Normal [facility] Consent for Treatmenton -2 Consent for Treatment [id number] #[id number]:127 [facility] IntraOperative Documentson 0 07-17-2022 IntraOperative Documents [id number] 2#1.00CD:127 [facility] Main OR Intraoperative Recor don 07-17-2022 Main OR Intraoperative Record IntraOp Document Type FTURO Summary Primary Physician: Iván TOMLIN MD Finalized Date/Time: 07/17/22 09:10:19 Pt. Name: LEONIE PEG Malone/Sex: 1950 Female Med Rec #: [id number] Physician: Iván TOMLIN MD Financial #: [id number] Pt. Type: O Room/Bed: / Admit/Disch: 07/17/22 08:15:03 - Institution: Case Times FTURO Entry 1 Patient Times In Room 07/17/22 09:02:00 Out Room 07/17/22 09:15:00 Procedure Times Start 07/17/22 09:05:00 Stop 07/17/22 09:10:00 Anesthesia Times Last Modified By: Kusum BELL, KRISTIANOR, Stefani 07/17/22 09:08:13 Case Attendance FTURO Entry 1 Entry 2 Entry 3 Case Attendee Iván TOMLIN MD RN, CNOR, Lorraine BARNES, Palma Ko Role Performed Surgeon - Primary Gaming Cage Worker - Primary Scrub - Primary Time In 07/17/22 09:02:00 07/17/22 09:02:00 07/17/22 09:02:00 Time Out 07/17/22 09:15:00 07/17/22 09:15:00 07/17/22 09:15:00 Procedure CYSTOSCOPY LOCAL(.) CYSTOSCOPY LOCAL(.) CYSTOSCOPY LOCAL(.) Comments Last Modified By: Kusum RN, CNOR, Kusum RN, KRISTIANOR, Kusum BELL, KRISTIANOR, Stefani 07/17/22 Stefani [...] KELLY BLACKMON, Iván Hsu, Verified (If Participants Kusum BELL, KRISTIANOR, Applicable) 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 Name: PEG HADLEY/Sex: 1950 Female Med Rec #: [id number] Physician: Iván TOMLIN MD Financial #: [id number] Pt. Type: O Room/Bed: / Admit/Disch: 07/17/22 [...] No Pain Comment: na Skin Integrity Intact, August, Warm, & Dry Vitals - EU Blood Pressure 135/82 Pulse 65 bpm Respirations 16 br/min SPO2 96 % RN Reviewed Yes Last Modified By: DEDRA Noe RN, Ruthann 07/17/22 09:04:49 General Comments: temp:36.4 Finalized By: DEDRA Noe RN, Ruthann Document Signatures Signed By: Maeve Florian LPN 07/17/22 08:41 DEDRA Noe RN, Ruthann 07/17/22 09:04 Normal [facility] Operative Reporton Operative Report Patient: [...] follow-up on a as needed basis.. Normal [facility] Comment on above: Result Comment: Elec tronically Signed By: Iván TOMLIN MD\.br\Date and Time Signed: 07/17/22 09:13 EDT RAD - Ultrasound Reporton RAD - Ultrasound Report [id number] #1.00CD:127 Normal [facility] Urine Cytology ([facility])on 0 07-09-2022 Urine Cytology Diagnosis Info Invalid Interpretation Code [facility] Comment on above: Result Comment: A:Ur ine,Urine:Voided Interpretation - MicroScopic Description - Adequacy - Gross Description Site ID:A color Light Yellow fixative Alcohol Specimen designated Urine received in alcohol preservative and labeled with the patient?s name, consists of 40ml clear light yellow fluid. Electronically signed by : on: 07/09/2022 15:10:50 Performed By: #### 1 [id number] ####[facility] [address] [place] [address] US KIDNEYSon 07-07-2022 US KIDNEYS EXAM: US [...] by: DANIELLE CAM Date: 2022-07-07 10:[address] [facility] Formson 07-03-2022 Forms [id number] #1.00CD:127 Normal [facility] Physician Referralon 023 Physician Referral [id number] #1.00CD:127 Normal [facility] Pre-Certification Formon Pre-Certification Form [id number] 8#1.00CD:127 Normal [facility] Ambulatory Visit Summaryon 0 07-02-2022 Ambulatory Visit Summary PEG HADLEY :1950 Visit Date:07/02/2022 Ambulatory Visit Instructions Your Diagnosis Microscopic hematuria Tests Performed Urnls Dip Stick Auto w/o Microscopy POC [address]13 US Renal -- Results Pending -- Please visit your patient portal for your results or contact your primary care physician. Your Care Team Attending Physician - Iván TOMLIN MD Primary Care Physician - YARITZA PEPPER CNP Referring Physician - AUDIE TRUONG MD This Is Your Medications List Contact prescribing physician if questions or concerns APAP/ASA/caffeine (Excedrin Migraine) aspirin (aspirin 81 mg oral tablet) dicyclomine (dicyclomine 20 mg Tab) fluticasone nasal (fluticasone 0.05 mg/inh Nasal [place]) hyoscyamine (hyoscyamine 0.125 mg oral Tab) levothyroxine [...] Follow Up with KELLY BLACKMON, Iván Hsu, SHI When: Where: [facility] [address] , [place] [address]- Medications What How Much When Instructions Unchanged [...] fluticasone nasal (fluticasone 0.05 mg/ inh Nasal [place]) 2 Sprays Nasal Inhalation Every day each [...] Urnls Dip Stick Auto w/o Microscopy POC 85022 (07/02/2022) Bilirubin Urine Dipstick - Negative Blood Urine Dipstick - Trace-lysed Glucose Urine Dipstick - Negative Ketones Urine Dipstick - Negative Leukocytes Urine Dipstick - Negative Nitrite Urine Dipstick - Negative Protein Urine Dipstick - Negative Specific [place] Urine Dipstick - >=1.030 Urine Appearance Urine [...] ? (more content not included)... Normal Gal[facility] Patient Educationon 07-03-19 Patient Education [...] these instructions at home: Medicines ? Take vplv-tyi-bfwpadr and prescription medicines only as told by [...] the blood stops without treatment. ? Take ujte-fyy-bfarylj and prescription medicines only as told by your health care provider. ? Drink enough fluid to keep your urine clear or pale yellow. This information is not intended to replace advice given to you by your health care provider. Make sure you discuss any questions you have with your health care provider. Document Released: 04/08/2006 Document Revised: 09/02/2019 Document Reviewed: 05/11/2017 [employer] Patient Education ? 2019 [employer] Normal [facility] Urine Cytology ([facility])on 0 07-02-2022 Method of Extraction Voided Normal [facility] Comment on above: Performed By: #### 1 [id number] ####[facility] [id number] [place] [address] Number of Jars 1 Invalid Interpretation Code [facility] Comment on above: Performed By: #### 1 [id number] ####[facility] [id number] [place] [address] Specimen Urine Normal [facility] Comment on above: Performed By: #### 1 [id number] ####[facility] [id number] [facility] [place] [address] Type of Service Technical Only Normal Fi [facility] Comment on above: Performed By: #### 1 [id number] ####[facility] [id number] [facility] [place] [address] PTH INTACTon 05-22-2022 PTH, Intact 75 pg/mL Critically high 15-65 [facility] Comment on above: Performed By: #### P THINT #### [facility] [address] [place] [address] Dr. Andrea Mccarthy FERRITINon 05-21-2022 Ferritin [Mass/Vol] 124.0 ng/mL Normal 8.0-252.0 [facility] Comment on above: Performed By: #### U KIM, MG, PHOS #### [facility] [address] [place] [address] Dr. Andrea Mccarthy HEMOGRAM AND PLATELon 2022 Hematocrit (Bld) [Volume fraction] 40.1 % Normal 36.0-48.0 [facility] Comment on above: Performed By: #### U KIM, MG, PHOS #### [facility] [address] [place] [address] Dr. Andrea Mccarthy Hemoglobin (Bld) [Mass/Vol] 13.2 g/dL Normal 12.0-16.0 [facility] Comment on above: Performed By: #### U KIM, MG, PHOS #### [facility] [address] [place] [address] Dr. Andrea Mccarthy MCH (RBC) [Entitic mass] 28.0 pg Normal 26.7-34.0 [facility] Comment on above: Performed By: #### U KIM, MG, PHOS #### [facility] [address] [place] [address] Dr. Andrea Mccarthy MCHC (RBC) [Mass/Vol] 32.9 g/dL Normal 29.9-35.2 [facility] Comment on above: Performed By: #### U KIM, MG, PHOS #### [facility] [address] [address] [address] Andrea Mccarthy MCV (RBC) [Entitic vol] 85.1 fL Normal 81.0-99.0 [facility] Comment on above: Performed By: #### U KIM, MG, PHOS #### [facility] [address] [place] [address] Dr. Andrea Mccarthy PLT 255 103/ul Normal 150-450 [facility] Comment on above: Performed By: #### U KIM, MG, PHOS #### [facility] [address] [place] [address] Dr. Andrea Mccarthy RBC 4.71 106/ul Normal 4.20-5.40 [facility] Comment on above: Performed By: #### U KIM, MG, PHOS #### [facility] [address] [place] [address] Dr. Andrea Mccarthy WBC 5.9 103/ul Normal 4.0-11.0 [facility] Comment on above: Performed By: #### U KIM, MG, PHOS #### [facility] [address] [place] [address] Dr. Andrea Mccarthy IRON AND TIBCon 05-21-2022 % SATURATION 18.5 % Normal The [facility] Comment on above: Performed By: #### U KIM, MG, PHOS #### [facility] [address] [place] [address] Dr. Andrea Mccarthy Iron [Mass/Vol] 51.0 ug/dL Normal 50.0-170.0 The [facility] Comment on above: Performed By: #### U KIM, MG, PHOS #### [facility] [address] [place] [address] Dr. Andrea Mccarthy TIBC DIRECT 276.0 ug/dL Normal 250.0-450.0 The [facility] Comment on above: Performed By: #### U KIM, MG, PHOS #### [facility] [address] [place] [address] Dr. Andrea Mccarthy MAGNESIUMon 05-21-2022 Magnesium [Mass/Vol] 1.8 mg/dL Normal 1.8-2.4 [facility] Comment on above: Performed By: #### U KIM, MG, PHOS #### [facility] [address] [address] [address] Andrea Mccarthy RENAL FUNCTION PANELon 05-21 Albumin [Mass/Vol] 3.5 g/dL Normal 3.4-5.0 [facility] [place] [facility] Comment on above: Performed By: #### U KIM, MG, PHOS #### [facility] [address] [address] [address] Andrea Mccarthy Calcium [Mass/Vol] 8.5 mg/dL Normal 8.5-10.1 [facility] Comment on above: Performed By: #### U KIM, MG, PHOS #### [facility] [address] [place] [address] Dr. Andrea Mccarthy Chloride [Moles/Vol] 104 mmol/L Normal 98-107 [facility] Comment on above: Performed By: #### U KIM, MG, PHOS #### [facility] [address] [address] [address] Andrea Mccarthy CO2 [Moles/Vol] 29.6 mmol/L Normal 21.0-32.0 The [facility] Comment on above: Performed By: #### U KIM, MG, PHOS #### [facility] [address] [place] [address] Dr. Andrea Mccarthy Creatinine [Mass/Vol] 1.23 mg/dL Critically high 0.55-1.02 [facility] Comment on above: Performed By: #### U KIM, MG, PHOS #### [facility] [address] [place] [address] Dr. Andrea Mccarthy EGFR-AF SERBIAN 52 mL/min/1.73m2 Critically low >=60 The [facility] Comment on above: Performed By: #### U KIM, MG, PHOS #### [facility] [address] [place] [address] Dr. Andrea Mccarthy EGFR-NON AF SERBIAN 43 mL/min/1.73m2 Critically low >=60 The [facility] Comment on above: Performed By: #### U KIM, MG, PHOS #### [facility] [address] [address] [address] Andrea Mccarthy Glucose [Mass/Vol] 92 mg/dL Normal 74-106 [facility] Comment on above: Performed By: #### U KIM, MG, PHOS #### [facility] [address] [address] [address] Andrea Mccarthy Phosphate [Mass/Vol] 3.3 mg/dL Normal 2.6-4.7 [facility] Comment on above: Performed By: #### U KIM, MG, PHOS #### [facility] [address] [address] [address] Andrea Mccarthy Potassium [Moles/Vol] 3.9 mmol/L Normal 3.5-5.1 [facility] Comment on above: Performed By: #### U KIM, MG, PHOS #### [facility] [address] [address] [address] Andera Mccarthy Sodium [Moles/Vol] 141 mmol/L Normal 136-145 [facility] Comment on above: Performed By: #### U KIM, MG, PHOS #### [facility] [address] [address] [address] Andrea Mccarthy Urea nitrogen [Mass/Vol] 25.0 mg/dL Critically high 7.0-18.0 [facility] Comment on above: Performed By: #### U KIM, MG, PHOS #### [facility] [address] [address] [address] Andrea Mccarthy UA RANDOM W/MICROSCOPICon BACTERIA NONE SEEN Normal NONE SEEN [facility] Comment on above: Performed By: #### U AMIC #### [facility] [address] [address] [address] Andrea Mccarthy Bilirubin Ql (U) Negative Normal NEGATIVE The [facility] Comment on above: Performed By: #### U AMIC #### [facility] [address] [address] [address] Andrea Mccarthy CAST NONE SEEN Normal NONE SEEN [facility] Comment on above: Performed By: #### U AMIC #### [facility] [address] [address] [address] Andrea Mccarthy Clarity (U) CLEAR Normal CLEAR The [facility] Comment on above: Performed By: #### U AMIC #### [facility] [address] [address] [address] Andrea Mccarthy Color (U) YELLOW Normal YELLOW The [facility] Comment on above: Performed By: #### U AMIC #### [facility] [address] [place] [address] Dr. Andrea Mccarthy Crystals LM Nom (Urine sed) NONE SEEN Normal NONE SEEN [facility] Comment on above: Performed By: #### U AMIC #### [facility] [address] [place] [address] Dr. Andrea Mccarthy Epithelial cells LM Ql (Urine sed) FEW Abnormal NONE SEEN /RARE The [facility] Comment on above: Performed By: #### U AMIC #### [facility] [address] [place] [address] Dr. Andrea Mccarthy Glucose Ql (U) Negative Normal NEGATIVE The [facility] Comment on above: Performed By: #### U AMIC #### [facility] [address] [place] [address] Dr. Andrea Mccarthy Hemoglobin Ql (U) TRACE-INTACT Abnormal NEGATIVE [facility] Comment on above: Performed By: #### U AMIC #### [facility] [address] [place] [address] Dr. Andrea Mccarthy Ketones Ql (U) Negative Normal NEGATIVE [facility] Comment on above: Performed By: #### U AMIC #### [facility] [address] [place] [address] Dr. Andrea Mccarthy LEUKOCYTES Negative Normal NEGATIVE [facility] Comment on above: Performed By: #### U AMIC #### [facility] [address] [place] [address] Dr. Andrea Mccarthy MUCOUS TRACE Abnormal NONE SEEN [facility] Comment on above: Performed By: #### U AMIC #### [facility] [address] [place] [address] Dr. Andrea Mccarthy Nitrite Ql (U) Negative Normal NEGATIVE [facility] Comment on above: Performed By: #### U AMIC #### [facility] [address] [address] [address] Andrea Mccarthy pH (U) 5.0 [pH] Normal 5-9 [facility] Comment on above: Performed By: #### U AMIC #### [facility] [address] [address] [address] Andrea Mccarthy RBC 0-2 Normal 0-2 [facility] Comment on above: Performed By: #### U AMIC #### [facility] [address] [place] [address] Dr. Andrea Mccarthy SPEC GRAVITY 1.025 Normal 1.005-<=1.025 [facility] Comment on above: Performed By: #### U AMIC #### [facility] [address] [place] [address] Dr. Andrea Mccarthy UA PROTEIN Negative Normal NEGATIVE/ TRACE The [facility] Comment on above: Performed By: #### U AMIC #### [facility] [address] [place] [address] Dr. Andrea Mccarthy Urobilinogen Qn (U) 0.2 {Mikel'U}/dL Normal 0.2 - 1. 0 [facility] Comment on above: Performed By: #### U AMIC #### [facility] [address] [place] [address] Dr. Andrea Mccarthy WBC NONE SEEN Normal NONE SEEN The [facility] Comment on above: Performed By: #### U AMIC #### [facility] [address] [place] [address] Dr. Andrea Mccarthy URINE T PROTEIN CREAT RATIOo n 05-21-2022 Protein (U) [Mass/Vol] 21.5 mg/dL Critically high <=12.0 [facility] Comment on above: Performed By: #### U KIM, MG, PHOS #### [facility] [address] [place] [address] Dr. Andrea Mccarthy UR PROT CREAT RAT 0.15 Normal [facility] Comment on above: Performed By: #### U KIM, MG, PHOS #### [facility] [address] [place], [place] [address] Dr. Andrea Mccarthy URINE CREAT 144.81 mg/dL Normal 20.00-300.00 [facility] Comment on above: Performed By: #### U KIM, MG, PHOS #### [facility] [address] [address] [address] Andrea Mccarthy VIT B12 AND FOLATEon 023 Cobalamin (Vitamin B12) [Mass/Vol] 1425.0 pg/mL Critically high 193.0-986.0 [facility] Comment on above: Performed By: #### U KIM, MG, PHOS #### [facility] [address] [address] [address] Andrea Mccarthy FOLATE 22.60 ng/mL Normal 8.60-58.90 [facility] Comment on above: Performed By: #### U KIM, MG, PHOS #### [facility] [address] SINUSES WO CONon [...] The [facility] INSULINon 11-15-2021 Insulin 9.0 uIU/mL Normal 2.6-24.9 [facility] Comment on above: Performed By: #### I NSULIN #### [facility] [address] [address] [address] Andrea Mccarthy PTH INTACTon 11-15-2021 PTH, Intact 43 pg/mL Normal 15-65 [facility] Comment on above: Performed By: #### U KIM, MG, PHOS #### [facility] [address] [address] [address] Andrea Mccarthy VIT D 25-[place] [facility]ORPon 2021 Vitamin D, 25-Hydroxy 85.4 ng/mL Normal 30.0-100.0 [facility] Comment on above: Result Comment: Sam[place] min D deficiency has been defined by the Parish of [employer] and an Endocrine Society practice guideline as a level of serum 25-OH vitamin D less than 20 ng/mL (1,2). The Endocrine Society went on to further define vitamin D insufficiency as a level between 21 and 29 ng/mL (2). 1. IOM (Parish of Medicine). 2010. Dietary reference intakes for calcium and D. [place]: The National Academies Press. 2. Dagoberto MF, Rachel NC, Edilson MARTINEZ, et al. Evaluation, treatment, and prevention of vitamin D deficiency: an Endocrine Society clinical practice guideline. JCEM. 2010; 96(7):1911-30. Performed By: #### V ITADLC #### [facility] [address] [address] [address] Andrea Mccarthy CBC AUTO DIFFon 11-14-2021 BASO # 0.0 103/ul Normal 0.0-0.1 [facility] Comment on above: Performed By: #### U KIM, MG, PHOS #### [facility] [address] [address] [address] Andrea Mccarthy Basophils/100 WBC (Bld) 0.6 % Normal 0.2-2.0 [facility] Comment on above: Performed By: #### U KIM, MG, PHOS #### [facility] [address] [place] [address] Dr. Andrea Mccarthy EO # 0.2 103/ul Normal 0.0-0.7 The [facility] Comment on above: Performed By: #### U KIM, MG, PHOS #### [facility] [address] [place] [address] Dr. Andrea Mccarthy Eosinophils/100 WBC (Bld) 2.4 % Normal 0.9-7.0 [facility] Comment on above: Performed By: #### U KIM, MG, PHOS #### [facility] [address] [place] [address] Dr. Andrea Mccarthy Erythrocyte distribution width (RBC) [Ratio] 14.0 % Normal 11.0-15.0 [facility] Comment on above: Performed By: #### U KIM, MG, PHOS #### [facility] [address] [place] [address] Dr. Andrea Mccarthy Hematocrit (Bld) [Volume fraction] 35.7 % Critically low 36.0-48.0 [facility] Comment on above: Performed By: #### U KIM, MG, PHOS #### [facility] [address] [place] [address] Dr. Andrea Mccarthy Hemoglobin (Bld) [Mass/Vol] 11.2 g/dL Critically low 12.0-16.0 [facility] Comment on above: Performed By: #### U KIM, MG, PHOS #### [facility] [address] [place] [address] Dr. Andrea Mccarthy IG # 0.02 10e3/ul Normal 0.00-0.03 [facility] Comment on above: Performed By: #### U KIM, MG, PHOS #### [facility] [address] [place] [address] Dr. Andrea Mccarthy IG % 0.3 % Normal 0.0-0.5 [facility] Comment on above: Performed By: #### U KIM, MG, PHOS #### [facility] [address] [address] [address] Andrea Mccarthy LYMPH # 1.8 103/ul Normal 1.2-3.8 [facility] Comment on above: Performed By: #### U KIM, MG, PHOS #### [facility] [address] [place] [address] Dr. Andrea Mccarthy Lymphocytes/100 WBC (Bld) 24.9 % Normal 20.5-60.0 [facility] Comment on above: Performed By: #### U KIM, MG, PHOS #### [facility] [address] [place] [address] Dr. Andrea Mccarthy MANUAL DIFF REQ NO Normal [facility] Comment on above: Performed By: #### U KIM, MG, PHOS #### [facility] [address] [place] [address] Dr. Andrea Mccarthy MCH (RBC) [Entitic mass] 27.3 pg Normal 26.7-34.0 [facility] Comment on above: Performed By: #### U KIM, MG, PHOS #### [facility] [address] [place] [address] Dr. Andrea Mccarthy MCHC (RBC) [Mass/Vol] 31.4 g/dL Normal 29.9-35.2 [facility] Comment on above: Performed By: #### U KIM, MG, PHOS #### [facility] [address] [place] [address] Dr. Andrea Mccarthy MCV (RBC) [Entitic vol] 87.1 fL Normal 81.0-99.0 [facility] Comment on above: Performed By: #### U KIM, MG, PHOS #### [facility] [address] [place] [address] Dr. Andrea Mccarthy MONO # 0.5 103/ul Normal 0.3-0.8 [facility] Comment on above: Performed By: #### U KIM, MG, PHOS #### [facility] [address] [place] [address] Dr. Andrea Mccarthy Monocytes/100 WBC (Bld) 7.0 % Normal 1.7-12.0 [facility] Comment on above: Performed By: #### U KIM, MG, PHOS #### [facility] [address] [address] [address] Andrea Mccarthy NEUT # 4.7 103/ul Normal 1.4-6.5 [facility] Comment on above: Performed By: #### U KIM, MG, PHOS #### [facility] [address] [address] [address] Andrea Mccarthy Neutrophils/100 WBC (Bld) 64.8 % Normal 43.0-75.0 [facility] Comment on above: Performed By: #### U KIM, MG, PHOS #### [facility] [address] [place] [address] Dr. Andrea Mccarthy Platelet mean volume (Bld) [Entitic vol] 10.1 fL Normal 9.5-13.5 [facility] Comment on above: Performed By: #### U KIM, MG, PHOS #### [facility] [address] [place] [address] Dr. Andrea Mccarthy PLT 309 103/ul Normal 150-450 [facility] Comment on above: Performed By: #### U KIM, MG, PHOS #### [facility] [address] [place] [address] Dr. Andrea Mccarthy RBC 4.10 106/ul Critically low 4.20-5.40 [facility] Comment on above: Performed By: #### U KIM, MG, PHOS #### [facility] [address] [place] [address] Dr. Andrea Mccarthy WBC 7.2 103/ul Normal 4.0-11.0 [facility] Comment on above: Performed By: #### U KIM, MG, PHOS #### [facility] [address] [place] [address] Dr. Andrea Mccarthy FREE THYROXINE INDEX T7on FTI 4.14 Normal 1.30-4.50 [facility] Comment on above: Performed By: #### U KIM, MG, PHOS #### [facility] [address] [address] [address] Andrea Mccarthy T3U 36.0 % Normal 30.0-39.0 [facility] Comment on above: Performed By: #### U KIM, MG, PHOS #### [facility] [address] [address] [address] Andrea Mccarthy T4 [Mass/Vol] 11.50 ug/dL Normal 4.80-13.90 [facility] Comment on above: Performed By: #### U KIM, MG, PHOS #### [facility] [address] [place] [address] Dr. Andrea Mccarthy GLYCOHEMOGLOBIN A1Con 2021 ADA RECOMMENDATION SEE BELOW Normal [facility] Comment on above: Result Comment: ADA RECOMMENDED LIMIT 4.0 - 6.0 ADA THERAPEUTIC TARGET < 7.0 ACTION SUGGESTED > 7.0 Performed By: #### A 1C #### [facility] [address] [address] [address] Andrea Mccarthy Glucose [Mass/Vol] 137 mg/dL Normal [facility] Comment on above: Performed By: #### A 1C #### [facility] [address] [place] [address] Dr. Andrea Mccarthy HbA1c (Bld) [Mass fraction] 6.4 % Critically high 4.5-6.2 [facility] Comment on above: Performed By: #### A 1C #### [facility] [address] [place] [address] Dr. Andrea Mccarthy IRONon 11-14-2021 Iron [Mass/Vol] 34.0 ug/dL Critically low 50.0-170.0 The [facility] Comment on above: Performed By: #### U KIM, MG, PHOS #### [facility] Laboratory [address] [place] [address] Dr. Andrea Mccarthy LIPID PROFILEon 11-14-2021 CHOL-HDL RATIO NORM SEE BELOW Normal [facility] Comment on above: Result Comment: 3.3 - 4.4 LOW RISK 4.4 - 7.1 AVERAGE RISK 7.1 - 11.0 MODERATE RISK >11.0 HIGH RISK Performed By: #### L IPID, TSH, T7, CMP #### [facility] Laboratory [address] [address] [address] Andrea Mccarthy Cholesterol [Mass/Vol] 152 mg/dL Normal <=200 [facility] Comment on above: Performed By: #### L IPID, TSH, T7, CMP #### [facility] Laboratory [address] [address] [address] Andrea Mccarthy Cholesterol in HDL [Mass/Vol] 51 mg/dL Normal 40-60 [facility] Comment on above: Performed By: #### L IPID, TSH, T7, CMP #### [facility] Laboratory [address] [place] [address] Dr. Andrea Mccarthy Cholesterol in LDL [Mass/Vol] 83.4 mg/dL Normal [facility] Comment on above: Performed By: #### L IPID, TSH, T7, CMP #### [facility] Laboratory [address] [address] [address] Andrea Mccarthy Cholesterol.total/Ch olesterol in HDL [Mass ratio] 3.0 {ratio} Normal [facility] Comment on above: Performed By: #### L IPID, TSH, T7, CMP #### [facility] Laboratory [address] [place] [address] Dr. Andrea Mccarthy HDL NORMAL > or = 60 mg/dl - LOW CARDIOVASCULAR RISK <40 mg/dl - HIGH CARDIOVASCULAR RISK Normal [facility] Comment on above: Performed By: #### L IPID, TSH, T7, CMP #### [facility] Laboratory [address] [place] [address] Dr. Andrea Mccarthy LDL CALC NORMAL SEE BELOW Normal The [facility] Comment on above: Result Comment: <100 mg/dl OPTIMAL 100 - 129 mg/dl NEAR OR ABOVE OPTIMAL 130 - 159 mg/dl BORDERLINE HIGH 160 - 189 mg/dl HIGH >190 mg/dl VERY HIGH Performed By: #### L IPID, TSH, T7, CMP #### [facility] Laboratory [address] [address] [address] Andrea Mccarthy Triglyceride [Mass/Vol] 88 mg/dL Normal <=150 [facility] Comment on above: Performed By: #### L IPID, TSH, T7, CMP #### [facility] Laboratory [address] [place] [address] Dr. Andrea Mccarthy VLDL CALC 17.6 mg/dL Normal [facility] Comment on above: Performed By: #### L IPID, TSH, T7, CMP #### [facility] Laboratory [address] [place] [address] Dr. Andrea Mccarthy MAGNESIUMon 11-14-2021 Magnesium [Mass/Vol] 2.2 mg/dL Normal 1.8-2.4 [facility] Comment on above: Performed By: #### U KIM, MG, PHOS #### [facility] Laboratory [address] [place] [address] Dr. Andrea Mccarthy PHOSPHORUSon 11-14-2021 Phosphate [Mass/Vol] 3.0 mg/dL Normal 2.6-4.7 [facility] Comment on above: Performed By: #### U KIM, MG, PHOS #### [facility] Laboratory [address] [place] [address] Dr. Andrea Mccarthy PROF 14(COMP METB)on 022 Albumin [Mass/Vol] 3.2 g/dL Critically low 3.4-5.0 [facility] Comment on above: Performed By: #### L IPID, TSH, T7, CMP #### [facility] Laboratory [address] [place] [address] Dr. Andrea Mccarthy Albumin/Globulin [Mass ratio] 0.8 {ratio} Normal [facility] Comment on above: Performed By: #### L IPID, TSH, T7, CMP #### [facility] Laboratory [address] [place] [address] Dr. Andrea Mccarthy ALP [Catalytic activity/Vol] 51 U/L Normal 46-116 [facility] Comment on above: Performed By: #### L IPID, TSH, T7, CMP #### [facility] Laboratory [address] [place] [address] Dr. Andrea Mccarthy ALT [Catalytic activity/Vol] 13 U/L Critically low 14-59 [facility] Comment on above: Performed By: #### L IPID, TSH, T7, CMP #### [facility] Laboratory [address] [address] [address] Andrea Mccarthy Anion gap [Moles/Vol] 11.4 mmol/L Normal [facility] Comment on above: Performed By: #### L IPID, TSH, T7, CMP #### [facility] Laboratory [address] [place] [address] Dr. Andrea Mccarthy AST [Catalytic activity/Vol] 9 U/L Critically low 15-37 [facility] Comment on above: Performed By: #### L IPID, TSH, T7, CMP #### [facility] Laboratory [address] [place] [address] Dr. Andrea Mccarthy Bilirubin [Mass/Vol] 0.3 mg/dL Normal 0.2-1.0 [facility] Comment on above: Performed By: #### L IPID, TSH, T7, CMP #### [facility] Laboratory [address] [place] [address] Dr. Andrea Mccarthy Calcium [Mass/Vol] 8.4 mg/dL Critically low 8.5-10.1 [facility] Comment on above: Performed By: #### L IPID, TSH, T7, CMP #### [facility] [address] [place] [address] Dr. Andrea Mccarthy Chloride [Moles/Vol] 105 mmol/L Normal 98-107 [facility] Comment on above: Performed By: #### L IPID, TSH, T7, CMP #### [facility] Laboratory [address] [place] [address] Dr. Andrea Mccarthy CO2 [Moles/Vol] 27.7 mmol/L Normal 21.0-32.0 [facility] Comment on above: Performed By: #### L IPID, TSH, T7, CMP #### [facility] Laboratory [address] [place] [address] Dr. Andrea Mccarthy Creatinine [Mass/Vol] 1.31 mg/dL Critically high 0.55-1.02 [facility] Comment on above: Performed By: #### L IPID, TSH, T7, CMP #### [facility] Laboratory [address] [address] [address] Andrea Mccarthy EGFR-AF SERBIAN 49 mL/min/1.73m2 Critically low >=60 [facility] Comment on above: Performed By: #### L IPID, TSH, T7, CMP #### [facility] Laboratory [address] [place] [address] Dr. Andrea Mccarthy EGFR-NON AF SERBIAN 40 mL/min/1.73m2 Critically low >=60 [facility] Comment on above: Performed By: #### L IPID, TSH, T7, CMP #### [facility] [address] [place] [address] Dr. Andrea Mccarthy Globulin (S) [Mass/Vol] 3.9 g/dL Normal [facility] Comment on above: Performed By: #### L IPID, TSH, T7, CMP #### [facility] [address] [place] [address] Dr. Andrea Mccarthy Glucose [Mass/Vol] 97 mg/dL Normal 74-106 [facility] [place] [facility] Comment on above: Performed By: #### L IPID, TSH, T7, CMP #### [facility] Laboratory [address] [place] [address] Dr. Andrea Mccarthy Potassium [Moles/Vol] 4.1 mmol/L Normal 3.5-5.1 [facility] Comment on above: Performed By: #### L IPID, TSH, T7, CMP #### [facility] [address] [place] [address] Dr. Andrea Mccarthy Protein [Mass/Vol] 7.1 g/dL Normal 6.4-8.2 [facility] Comment on above: Performed By: #### L IPID, TSH, T7, CMP #### [facility] [address] [place] [address] Dr. Andrea Mccarthy Sodium [Moles/Vol] 140 mmol/L Normal 136-145 [facility] [place] [facility] Comment on above: Performed By: #### L IPID, TSH, T7, CMP #### [facility] [address] [place] [address] Dr. Andrea Mccarthy Urea nitrogen [Mass/Vol] 23.0 mg/dL Critically high 7.0-18.0 [facility] Comment on above: Performed By: #### L IPID, TSH, T7, CMP #### [facility] [address] [place] [address] Dr. Andrea Mccarthy Urea nitrogen/Creatinine [Mass ratio] 17.6 mg/mg Normal [facility] Comment on above: Performed By: #### L IPID, TSH, T7, CMP #### [facility] Laboratory [address] [place] [address] Dr. Andrea Mccarthy TSHon 11-14-2021 TSH 0.032 uIU/mL Critically low 0.358-3.740 [facility] Comment on above: Performed By: #### U KIM, MG, PHOS #### [facility] Laboratory [address] [place] [address] Dr. Andrea Mccarthy UA RANDOM W/MICROSCOPICon BACTERIA NONE SEEN Normal NONE SEEN [facility] Comment on above: Performed By: #### U KIM, MG, PHOS #### [facility] [address] [place] [address] Dr. Andrea Mccarthy Bilirubin Ql (U) Negative Normal NEGATIVE [facility] Comment on above: Performed By: #### U KIM, MG, PHOS #### [facility] [address] [place] [address] Dr. Andrea Mccarthy CAST NONE SEEN Normal NONE SEEN [facility] Comment on above: Performed By: #### U KIM, MG, PHOS #### [facility] [address] [place] [address] Dr. Andrea Mccarthy Clarity (U) CLEAR Normal CLEAR [facility] Comment on above: Performed By: #### U KIM, MG, PHOS #### [facility] [address] [place] [address] Dr. Andrea Mccarthy Color (U) YELLOW Normal YELLOW [facility] Comment on above: Performed By: #### U KIM, MG, PHOS #### [facility] [address] [place] [address] Dr. Andrea Mccarthy Crystals LM Nom (Urine sed) NONE SEEN Normal NONE SEEN [facility] Comment on above: Performed By: #### U KIM, MG, PHOS #### [facility] [address] [address] [address] Andrea Mccarthy Epithelial cells LM Ql (Urine sed) FEW Abnormal NONE SEEN /RARE The [facility] Comment on above: Performed By: #### U KIM, MG, PHOS #### [facility] Laboratory [address] [address] [address] Andrea Mccarthy Glucose Ql (U) Negative Normal NEGATIVE The [facility] Comment on above: Performed By: #### U KIM, MG, PHOS #### [facility] [address] [address] [address] Andrea Mccarthy Hemoglobin Ql (U) TRACE-INTACT Abnormal NEGATIVE [facility] Comment on above: Performed By: #### U KIM, MG, PHOS #### [facility] [address] [place] [address] Dr. Andrea Mccarthy Ketones Ql (U) Negative Normal NEGATIVE [facility] Comment on above: Performed By: #### U KIM, MG, PHOS #### [facility] [address] [address] [address] Andrea Mccarthy LEUKOCYTES Negative Normal NEGATIVE [facility] Comment on above: Performed By: #### U KIM, MG, PHOS #### [facility] [address] [address] [address] Andrea Mccarthy MUCOUS SMALL Abnormal NONE SEEN [facility] Comment on above: Performed By: #### U KIM, MG, PHOS #### [facility] [address] [address] [address] Andrea Mccarthy Nitrite Ql (U) Negative Normal NEGATIVE The [facility] Comment on above: Performed By: #### U KIM, MG, PHOS #### [facility] [address] [place] [address] Dr. Andrea Mccarthy pH (U) 5.5 [pH] Normal 5-9 [facility] Comment on above: Performed By: #### U KIM, MG, PHOS #### [facility] Laboratory [address] [address] [address] Andrea Mccarthy RBC 0-2 Normal 0-2 [facility] Comment on above: Performed By: #### U KIM, MG, PHOS #### [facility] Laboratory [address] [address] [address] Andrea Mccarthy SPEC GRAVITY 1.020 Normal 1.005-<=1.025 [facility] Comment on above: Performed By: #### U KIM, MG, PHOS #### [facility] Laboratory [address] [place] [address] Dr. Andrea Mccarthy UA PROTEIN Negative Normal NEGATIVE/ TRACE The [facility] Comment on above: Performed By: #### U KIM, MG, PHOS #### [facility] Laboratory [address] [place] [address] Dr. Andrea Mccarthy Urobilinogen Qn (U) 0.2 {Mikel'U}/dL Normal 0.2 - 1. 0 [facility] Comment on above: Performed By: #### U KIM, MG, PHOS #### [facility] [address] [place] [address] Dr. Andrea Mccarthy WBC NONE SEEN Normal NONE SEEN [facility] Comment on above: Performed By: #### U KIM, MG, PHOS #### [facility] [address] [place] [address] Dr. Andrea Mccarthy URIC ACID SERUMon 11-14-2021 Urate [Mass/Vol] 5.0 mg/dL Normal 2.6-6.0 [facility] Comment on above: Performed By: #### U KIM, MG, PHOS #### [facility] [address] [place] [address] Dr. Andrea Mccarthy URINE T PROTEIN CREAT RATIOo n 11-14-2021 Protein (U) [Mass/Vol] 22.3 mg/dL Critically high <=12.0 [facility] Comment on above: Performed By: #### U KIM, MG, PHOS #### [facility] [address] [place] [address] Dr. Andrea Mccarthy UR PROT CREAT RAT 0.15 Normal [facility] Comment on above: Performed By: #### U KIM, MG, PHOS #### [facility] [address] [place], [place] [address] Dr. Andrea Mccarthy URINE CREAT 151.50 mg/dL Normal 20.00-300.00 [facility] Comment on above: Performed By: #### U KIM, MG, PHOS #### [facility] [address] [place], [place] [address] Dr. Andrea Mccarthy Vital Signs Date Time Vital Sign Value Performing Clinician Facility 05-03-2024 09:59-0500 Body height 162.56 cm [facility] 05-03-2024 09:59-0500 Body mass index (BMI) [Ratio] 30 kg/m2 [facility] 05-03-2024 09:59-0500 Body temperature 97.3 [degF] [facility] 05-03-2024 09:59-0500 Body weight 79.49 kg [facility] 05-03-2024 09:59-0500 Diastolic blood pressure 82 mm[Hg] [facility] 05-03-2024 09:59-0500 Heart rate 110 /min [facility] 05-03-2024 09:59-0500 Respiratory rate 16 /min [facility] 05-03-2024 09:59-0500 SaO2% (BldA) [Mass fraction] 95 % [facility] 05-03-2024 09:59-0500 Systolic blood pressure 121 mm[Hg] [facility] 11-11-2023 12:58-0400 Body height 162.56 cm [facility] 11-11-2023 12:58-0400 Body mass index (BMI) [Ratio] 30 kg/m2 [facility] 11-11-2023 12:58-0400 Body weight 79.37 kg [facility] 11-11-2023 12:58-0400 Diastolic blood pressure 88 mm[Hg] [facility] 11-11-2023 12:58-0400 Systolic blood pressure 136 mm[Hg] [facility] 10-19-2023 12:21-0400 Body height 162.56 cm [facility] 10-19-2023 12:21-0400 Body mass index (BMI) [Ratio] 30.4 kg/m2 [facility] 10-19-2023 12:21-0400 Body temperature 98.3 [degF] [facility] 10-19-2023 12:21-0400 Body weight 80.39 kg [facility] 10-19-2023 12:21-0400 Heart rate 82 /min [facility] 10-19-2023 12:21-0400 Respiratory rate 16 /min [facility] 10-19-2023 12:21-0400 SaO2% (BldA) [Mass fraction] 96 % [facility] 05-21-2023 10:40-0500 Body height 162.56 cm Audie Dionne Other [facility] [employer] Other 05-21-2023 10:40-0500 Body mass index (BMI) [Ratio] 29.59 kg/m2 Audie Dionne Other [employer] Other 05-21-2023 10:40-0500 Body temperature 96.3 [degF] Audie Dionne Other [employer] Other 05-21-2023 10:40-0500 Body weight 78.2 kg Audie Dionne Other [employer] Other 05-21-2023 10:40-0500 Diastolic blood pressure 80 mm[Hg] Audie Dionne Other [employer] Other 05-21-2023 10:40-0500 Respiratory rate 18 /min Audie Dionne Other [employer] Other 05-21-2023 10:40-0500 SaO2% (BldA) [Mass fraction] 98 % Audie Dionne Other [employer] Other 05-21-2023 10:40-0500 Systolic blood pressure 118 mm[Hg] Audie Dionne Other [employer] Other 11-19-2022 11:00-0400 Body height 162.56 cm Audie Dionne Other [employer] Other 11-19-2022 11:00-0400 Body mass index (BMI) [Ratio] 28.9 kg/m2 Audie Dionne Other [employer] Other 11-19-2022 11:00-0400 Body temperature 96 [degF] Audie Dionne Other [employer] Other 11-19-2022 11:00-0400 Body weight 76.39 kg Audie Dionne Other [employer] Other 11-19-2022 11:00-0400 Diastolic blood pressure 81 mm[Hg] Audie Dionne Other [employer] Other 11-19-2022 11:00-0400 Respiratory rate 18 /min Audie Dionne Other [employer] Other 11-19-2022 11:00-0400 SaO2% (BldA) [Mass fraction] 98 % Audie Dionne Other [employer] Other 11-19-2022 11:00-0400 Systolic blood pressure 132 mm[Hg] Audie Dionne Other [employer] Other 07-02-2022 14:17-0400 Blood Pressure Location Iván TOMLIN [facility] [place] 07-02-2022 14:17-0400 Diastolic blood pressure 88 mm[Hg] Iván TOM[facility] [place] 07-02-2022 14:17-0400 Heart rate 71 /min Iván TOMLIN [facility] [place] 07-02-2022 14:17-0400 Systolic blood pressure 128 mm[Hg] Iván TOMLIN [facility] [place] 05-29-2022 10:40-0500 Body height 162.56 cm Audie Dionne Other [employer] Other 05-29-2022 10:40-0500 Body mass index (BMI) [Ratio] 28.22 kg/m2 Audie Dionne Other [employer] Other 05-29-2022 10:40-0500 Body temperature 96.3 [degF] Audie Dionne Other [employer] Other 05-29-2022 10:40-0500 Body weight 74.57 kg Audie Dionne Other [employer] Other 05-29-2022 10:40-0500 Diastolic blood pressure 81 mm[Hg] Audie Dionne Other [employer] Other 05-29-2022 10:40-0500 Respiratory rate 18 /min Audie Dionne Other [employer] Other 05-29-2022 10:40-0500 SaO2% (BldA) [Mass fraction] 98 % Audie Dionne Other [employer] Other 05-29-2022 10:40-0500 Systolic blood pressure 125 mm[Hg] Audie Dionne Other [employer] Other 11-21-2021 12:40-0400 Body height 162.56 cm Audie Dionne Other [employer] Other 11-21-2021 12:40-0400 Body mass index (BMI) [Ratio] 28.22 kg/m2 Audie Dionne Other [employer] Other 11-21-2021 12:40-0400 Body temperature 96.8 [degF] Audie Dionne Other [employer] Other 11-21-2021 12:40-0400 Body weight 74.57 kg Audie Dionne Other [employer] Other 11-21-2021 12:40-0400 Diastolic blood pressure 79 mm[Hg] Audie Dionne Other [employer] Other 11-21-2021 12:40-0400 Respiratory rate 18 /min Audie Dionne Other [employer] Other 11-21-2021 12:40-0400 SaO2% (BldA) [Mass fraction] 98 % Audie Dionne Other [employer] Other 11-21-2021 12:40-0400 Systolic blood pressure 117 mm[Hg] Audie Dionne Other [employer] Other 06-01-2021 16:20-0500 Body height 162.56 cm Audie Dionne Other [employer] Other 06-01-2021 16:20-0500 Body mass index (BMI) [Ratio] 30.89 kg/m2 Audie Dionne Other [employer] Other 06-01-2021 16:20-0500 Body temperature 96.5 [degF] Audie Dionne Other [employer] Other 06-01-2021 16:20-0500 Body weight 81.65 kg Audie Dionne Other [employer] Other 06-01-2021 16:20-0500 Diastolic blood pressure 80 mm[Hg] Audie Dionne Other [employer] Other 06-01-2021 16:20-0500 Respiratory rate 18 /min Audie Dionne Other [employer] Other 06-01-2021 16:20-0500 SaO2% (BldA) [Mass fraction] 98 % Auide Dionne Other [employer] Other 06-01-2021 16:20-0500 Systolic blood pressure 119 mm[Hg] Audie Dionne Other [employer] Other 03-27-2021 16:20-0500 Body height 162.56 cm Audie Dionne Other [employer] Other 03-27-2021 16:20-0500 Body mass index (BMI) [Ratio] 31.55 kg/m2 Audie Dionne Other [employer] Other 03-27-2021 16:20-0500 Body temperature 96.5 [degF] Audie Dionne Other [employer] Other 03-27-2021 16:20-0500 Body weight 83.37 kg Audie Dionne Other [employer] Other 03-27-2021 16:20-0500 Diastolic blood pressure 80 mm[Hg] Audie Dionne Other [employer] Other 03-27-2021 16:20-0500 Respiratory rate 18 /min Audie Dionne Other [employer] Other 03-27-2021 16:20-0500 SaO2% (BldA) [Mass fraction] 99 % Audie Dionne Other [employer] Other 03-27-2021 16:20-0500 Systolic blood pressure 119 mm[Hg] Audie Dionne Other [employer] Other Encounters Encounter Date Encounter Type Care Provider Facility Start: 05-03-2024 End: 05-03-2024 ambulatory [facility] Work Phone: Start: 05-03-2024 End: 05-03-2024 Patient encounter procedure [facility] Work Phone: Start: 11-11-2023 End: 11-11-2023 ambulatory [facility] Work Phone: Start: 11-11-2023 End: 11-11-2023 Patient encounter procedure [facility] Nephrology Work Phone: Start: 11-07-2023 Non-patient / Non-visit [facility] [employer] Work Phone: Start: 10-19-2023 End: 10-19-2023 ambulatory [facility] Work Phone: Start: 10-19-2023 End: 10-19-2023 Patient encounter procedure [facility] Work Phone: Start: 05-21-2023 End: 05-21-2023 ambulatory Audie Dionne Other [employer] Other Start: 05-21-2023 Office outpatient vi sit 25 minutes Audie Dionne [facility] Start: 11-19-2022 End: 11-19-2022 ambulatory Audie Dionne Other [employer] Other Start: 11-19-2022 Office outpatient vi sit 15 minutes Audie Dionne [facility] Start: 09-06-2022 ambulatory YARITZA LOPEZ Facility: Start: 07-17-2022 End: 07-18-2022 ambulatory Iván TOMLIN Facility:[facility] Start: 07-17-2022 End: 07-17-2022 Patient encounter procedure Iván TOMLIN [facility] Start: 07-07-2022 End: 07-08-[address] IVÁN TOMLIN . Facility: Start: 07-02-2022 End: 07-03-2022 ambulatory MD AUDIE TRUONG Facility:[facility] Start: 07-02-2022 End: 07-02-2022 Patient encounter procedure Iv[facility] TOMLIN [facility] Start: 05-31-2022 ambulatory MD AUDIE TRUONG Facility :[facility] Start: 05-29-2022 End: 05-29-2022 ambulatory Audie Dionne Other [employer] Other Start: 05-29-2022 Office outpatient vi sit 25 minutes Audie Dionne [facility] Start: 05-21-2022 End: 05-22-2022 ambulatory YARITZAWEN LOPEZ Facility:[facility] Start: 12-30-2021 End: 12-31-2021 ambulatory YARITZAWEN SEAMANMER Facility:[facility] Start: 11-21-2021 End: 11-21-2021 ambulatory Audie Dionne Other [employer] Other Start: 11-21-2021 Office outpatient vi sit 25 minutes Audie Dionne [facility] Start: 11-14-2021 End: 11-15-2021 ambulatory AUDIE DIONNE Facility:[facility] Start: 06-02-2021 End: 06-02-2021 ambulatory Audie Dionne Other [employer] Other Start: 06-02-2021 Telephone encounter Audie Dionne [facility] Start: 06-01-2021 End: 06-01-2021 ambulatory Audie Dionne Other [employer] Other Start: 06-01-2021 Office outpatient vi sit 25 minutes Audie Dionne [facility] Start: 03-27-2021 End: 03-27-2021 ambulatory Audie Dionne Other [employer] Other Start: 03-27-2021 Office outpatient ne w 45 minutes Audie Dionne [facility] Procedures Date Procedure Procedure Detail Performing Clinician Start: 01-08-2019 Esophagogastroduodenoscopy Iván TOMLIN Abdominal hysterectomy Clarence TOMLIN Appendectomy Iván TOMLIN Colonoscopy Iván TOMLIN Plan of Treatment Date Care Activity Detail Author Renal function 1999 panel - Serum or Plasma [facility] Payers Date Payer Category Payer Private Health Insurance [id number] 1950 Unknown [id number] 2.16.8 [id number] 1950 Unknown [id number] 2.16.8 [id number] 1950 Unknown [id number] 2.16.84 [id number] 1950 Unknown [id number] 2.16.84 [id number] 1950 Unknown [id number] 2.16.84 [id number] 1950 Unknown [id number] 2.16.84 [id number] 1950 Unknown [id number] 2.16.84 [id number] 1950 Unknown [id number] 2.16.84 [id number] Self-pay Self Pay [id number] Unknown [id number] Social History Date Type Detail Facility [facility] Start: 1950 Sex Assigned At Female [facility] Sex Assigned At [facility] Start: 07-02-2022 End: 10-19-2023 Tobacco smoking status Never smoked tobacco (finding) [facility] Tobacco smoking status Never [facility] Start: 05-03-2024 Sex Female (finding) [facility] Goals Date Patient Goal Desired Activity /State Functional Status Date Assessment Result Facility 07-02-2022 Functional Status N/A [facility] Clinical Notes 03-27-2021 to 05-21-2023 Note [...] stain. Monitor LFTs and lipid profile periodically. [employer] Other 07-31-2023 Evaluation note* Encounter Date Diagnosis [...] advised to have repeat in 5 yrs [employer] Other [id number] Note [id number]:127[facility] 07-17-2022 Hospital Discharge instructions Patient [...] With:Iván TOMLIN Address: [facility] [address] [place] [address]- Business (1) When: Unknown Comments:Call for any problems. [facility]03-28-2023 NoteCustom Cystoscopy ? Voiding after the [...] if you have a fever over 100 degrees.[facility] 07-02-2022 NoteChief Complaint Pt here [...] Iván Hsu, URL [facility] [address] [place] [address]- Additional Instructions: schedule cysto, CHRIS Patient Education [...] tab(s), Oral, q6hr fluticasone 0.05 mg/inh Nasal [place], 2 spray(s), Nasal, Daily (more content not included)...[facility]Result Comment: Electronically Signed By: Iván TOMLIN MD\.br\Date and Time Signed: 07/02/22 14:52 EDT\.br\Electronically Co-Signed By: Moira Estrada\.br\Date and Time Co-Signed: 07/02/22 14:50 [id number] Hospital Discharge instructions Patient Education 07/02/2022 14:22:27 [...] Follow these instructions at home: Medicines Take dblh-ddw-moqfvym and prescription medicines only as told by [...] or the blood stops without treatment. Take naby-gpd-jzjlszq and prescription medicines only as told by your health care provider. Drink enough fluid to keep your urine clear or pale yellow. This information is not intended to replace advice given to you by your health care provider. Make sure you discuss any questions you have with your health care provider. Document Released: 04/08/2006 Document Revised: 09/02/2019 Document Reviewed: 05/11/2017 [employer] Patient Education 2020 [employer] Follow Up Care 05/31/2022 13:31:32 With:KELLY BLACKMON, SHI Mckeon Address: [facility] [address], [place] [address]- When: Unknown [facility] 02-07-2023 Evaluation note* Encounter Date Diagnosis [...] advised to have repeat in 5 yrs [employer] Other 08-02-2022 Evaluation note* Encounter Date Diagnosis [...] down the progression of CKD. Nov, Chris espinoza cr kid I-IV (ICD-10 - [...] stain. Monitor LFTs and lipid profile periodically. [employer] Other 02-10-2022 Evaluation note* Encounter Date Diagnosis [...] stain. Monitor LFTs and lipid profile periodically. [employer] Other 12-06-2021 Evaluation note* Encounter Date Diagnosis [...] PCP. Mar, Dyslipidemia (ICD-10 - E78.5) Continue [facility]. Monitor LFTs and lipid profile periodically. [employer] Other Evaluation + Plan note Future Appointments Appointment Date:07/10/2022 11:30:00 AM Scheduled Provider: Location:[facility] Appointment Type:Urology CALL PAT FT Appointment Date:07/17/2022 08:45:00 AM Scheduled Provider: Location:[facility] Appointment Type:Urology FT Diagnostic Tests Pending * Urine Cytology ([facility]) 07/02/22 [facility] evaluation noteNo Assessments Information Available [facility] note[facility] InformationNort [employer] Other Evaluation noteNo assessment information available [facility] Work Phone: Evaluation note* Diagnosis Onset Date Resolution Status Maxillary sinusitis, acute a cute Anemia of renal disease acut e CKD (chronic kidney disease) stage 3, GFR 30-59 ml/min acute Hyperlipidemia acute [id number] acute Hypomagnesemia acute Secondary hyperparathyroidism acute [facility] Work Phone: History general Narrative - Reported* Type Description Date Medical History HTN Medical History Hypothyroidism Medical History hyperlipidemia Medical History acid reflux Medical History anxiety Medical History PRE DIABETIC Medical History mixed hypercholestolemia Medical History CKD STAGE 3 Medical History INSOMNIA Surgical History hysterectomy, total with BSO Surgical History fallopian tube removed Hospitalization History see above hx Hospitalization History N&V [employer] Other History general Narrative - Reported* Type [...] History see above hx Hospitalization History N&V [employer] Other Hospital course Narrative No data available for this section [facility] progress note No data available for this section [facility] Summary Purpose Family History Relationship Condition Age at Onset Recorded Date/T belle brother Hypertension Unknown father Unknown Parkinson's disease Unknown Family history of mental disorder Unknown mother Family history of mental disorder Unknown Unknown Hypertension Unknown Advance Directives Advance Directive Response Recorded Date/ Time Advance Directives No November 16 4:06pm Advance Directive Response Recorded Date/ Time Advance Directives No November 16 3:06pm Chief Complaint and Reason for Visit Chief Complaint Sinus congestion, he adache Chief Complaint Sinus congestion, he adache RENAL 6 month follow up Reason for Visit Maxillary sinusitis, acute Anemia of renal disease CKD (chronic kidney disease) stage 3, GFR 30-59 ml/min Hyperlipidemia [id number] Hypomagnesemia Secondary hyperparathyroidism Chief Complaint Admit Date sinus congestion, cough May 03 9:55am Additional Source Comments REASON FOR VISIT (unrecogniz ed section and content) RENAL CKD 3CKD and hyperpara thyroidismNo InformationCKD and HTNCKD and HTNCKD and HTNCKD and HTN Patient Care team informatio n (unrecognized section and content) Team Status: Active Member Role Status Dates Yaritza Lopez , ADMINISTRATIVE NURSING SUPERVISOR-C Primary Care Provider Active Team Status: Inactive Member Role Status Dates Yaritza Lopez ADMINISTRATIVE NURSING SUPERVISOR-C Primary Care Provider Active Start: October 19, 2023 End: October 19, 2023 Marianne Ragsdale APRN Attending Provider Active Start: October 19, 2023 End: October 19, 2023 Team Status: Active Member Role Status Dates Yaritza Lopez ADMINISTRATIVE NURSING SUPERVISOR-C Primary Care Provider Active Start: November 07, 2023 Audie Truong MD Attending Provider Active Start : November 07, 2023 Team Status: Inactive Member Role Status Dates Yaritza Lopez , ADMINISTRATIVE NURSING SUPERVISOR-C Primary Care Provider Active Start: November 11, 2023 End: November 11, 2023 Audie Truong MD Attending Provider Active Start : November 11, 2023 End: November 11, 2023 Team Status: Inactive Member Role Status Dates Yaritza Lopez , ADMINISTRATIVE NURSING SUPERVISOR-C Primary Care Provider Active Start: May 03, 2024 End: May 03, 2024 Ella Monsalve APRN Attending Provider Active S tart: May 03, 2024 End: May 03, 2024 INFORMATION SOURCE (unrecogn ized section and content) DATE CREATED AUTHOR 07/24/2022 [facility] DATE CREATED AUTHOR AUTHOR'S ORGANIZ ATION 09/05/2022 [facility] Goals (unrecognized section and content) [...] BE BASED ON THE PRIMARY CLINICAL RECORDS. [employer] provides no warranty or guarantee of the accuracy or completeness of information in this document.
[2024-05-05 08:53] LABS: Hematocrit 39.3 % (36.0-48.0); Mean Corpuscular HGB Conc 30.5 g/dL (29.9-35.2); Mean Corpuscular Hemoglobin 27.3 pg (26.7-34.0); Mean Corpuscular Volume 89.3 fL (81.0-99.0); Mean Platelet Volume 12.5 fL (9.5-13.5); Platelet Count 146 10^3/uL (150-450); Red Cell Distribution Width 13.8 % (11.0-15.0); White Blood Count 6.7 10^3/uL (4.0-11.0)
[2024-05-05 09:15] LABS: Albumin Level 3.1 g/dL (3.4-5.0); Anion Gap 13.1; BUN Creatinine Ratio 10.9; Calcium 8.3 mg/dL (8.5-10.1); Carbon Dioxide 28.9 mmol/L (21.0-32.0); Chloride 105 mmol/L (98-107); Estimated GFR (African America 42 (>=60 mL/min/1.73m^2); Estimated GFR (Non-African Ame 35 (>=60 mL/min/1.73m^2); Glucose 104 mg/dL (74-106); Phosphorus 3.1 mg/dL (2.6-4.7); Sodium 143 mmol/L (136-145); Uric Acid 5.1 mg/dL (2.6-6.0)
[2024-05-05 09:19] LABS: Percent Iron Saturation 16.5 %
[2024-05-05 09:20] LABS: Creatinine Urine Random 232.52 mg/dL (20.00-300.00); Protein Creatinine Ratio Urine 0.17; Total Protein Urine Random 38.9 mg/dL (<=11.9)
[2024-05-05 09:28] LABS: Bilirubin Urine NEGATIVE (NEGATIVE); Blood Urine SMALL (NEGATIVE); Clarity Urine CLEAR (CLEAR); Color Urine YELLOW (YELLOW); Glucose Urine UA NEGATIVE (NEGATIVE); Ketones Urine NEGATIVE (NEGATIVE); Leukocyte Esterase Urine SMALL (NEGATIVE); Nitrite Urine NEGATIVE (NEGATIVE); Protein Urine TRACE mg/dL (NEG/TRACE); Specific Gravity Urine >=1.030 (1.005-1.025); Urobilinogen Urine 0.2 EU/dL (0.2-1.0); pH Urine 5.5 (5.0-9.0)
[2024-05-05 09:42] LABS: Bacteria Urine SMALL #/HPF (NONE SEEN); Mucus Urine TRACE (NONE SEEN); Squamous Epithelial Cell Urine MODERATE #/LPF (NONE/RARE)
[2024-05-06 11:09] LABS: PTH, Intact 90 pg/mL (15-65)
== END 2024-05-05 08:21 | disposition home or self-care (01) ==
LOC: LAB 08:22
PROVIDERS: PCP Nurse Practitioner Family; Visit Provider Internal Medicine
DX: E83.42 Hypomagnesemia (principal); N18.9 Chronic kidney disease, unspecified; D63.1 Anemia in chronic kidney disease; E78.5 Hyperlipidemia, unspecified; N25.81 Secondary hyperparathyroidism of renal origin; I12.9 Hypertensive chronic kidney disease with stage 1 through stage 4 chronic kidney disease, or unspecified chronic kidney disease
CPT/HCPCS: 36415; 80069; 81001; 82306; 82570; 82728; 83540; 83550; 83735; 83970; 84156; 84550; 85027

== ENCOUNTER 2024-09-07 08:30 | Outpatient (OUT) | payer MEDICARE, SELFPAY ==
--- OUTSIDE RECORDS SUMMARY | 2024-09-07 08:52 | XMS_ITS | CCD ---
Author Organization [facility]n Care Team Providers Care Electric Meter Setter Name Role Phone Audie Truong Unavailable YARITZA PEPPER Primary Care Physician [phone] MD AUDIE TRUONG Referring Unavailable Iván TOMLIN Attending Unavailable KELLY, Iván Hsu Referring Unavailable Iván TOMLIN Attending Unavailable Iván TOMLIN Admitting Unavailable JOHN, YARITZA Attending Unavailable JOHN, YARITZA Admitting Unavailable JOHN, YARITZA Primary Care Unavailable JOHN, YARITZA Consulting Unavailable JOHN, YARITZA Attending Unavailable JOHN, YARITZA [...] Propensity to adverse reactions (disorder) [facility] Repository Medications Current Medications Medication Drug Class(es) Dates Sig (Normalized) Sig (Original) acetaminophen 325 mg oral capsule (3 sources) Start: 05-12-2024 take 1 capsule by mouth every six hours as needed Acetaminophen 325 mg capsule Active 325 MG PO Every 6 hours as needed May 12, 2024 1:00am alendronic acid 70 mg oral tablet (13 sources) Bisphosphonate Start: 10-19-2023 take 1 tablet [...] hydrochloride 300 mg extended release oral tablet (13 sources) Aminoketone Start: 10-19-2023 take 1 tablet by mouth once daily Bupropion Hcl 300 mg tablet extended release 24 hr Active 300 MG PO Daily October 19, [...] day Active cholecalciferol 0.05 mg oral capsule (6 sources) Vitamin D Start: 2023 take 1 capsule by mouth once daily Cholecalciferol (Vitamin D3) 50 mcg (2,000 unit) capsule Active 50 MCG PO Daily October 19, 2023 12:00am dicyclomine hydrochloride 20 mg oral tablet (2 sources) Anticholinergic Start: 2018 take 1 tablet by mouth four times daily dicyclomine 20 mg Tab 20 mg = 1 tab(s), Oral, QID Start Date: 01/01/19 Status: Ordered Excedrin Migraine (2 sources) Start: 2018 take 2 tablets by mouth every six [...] propionate 0.05 mg/actuat metered dose nasal spray (7 sources) Corticosteroid Start: 05-03-2024 End: 05-12-2024 Fluticasone Propionate 50 mcg/actuation spray,suspension Active INTRANASAL as needed May 12, 2024 11:53am fluticasone 0.05 mg/inh Nasal [place] (2 sources) Start: 01-01-2019 take 2 spray(s) nasal route once daily fluticasone 0.05 mg/inh Nasal [place] 2 spray(s), Nasal, Daily, each nostril Start [...] Ordered levothyroxine sodium 0.15 mg oral tablet (15 sources) l-Thyroxine Start: 10-19-2023 take 1 tablet by mouth once daily Levothyroxine 150 mcg tablet Active 150 MCG PO Daily October 19, 2023 12:00am Start: 01-01-2019 take 1 capsule by mo [facility] once daily levothyroxine 125 mcg [...] Active losartan potassium 100 mg oral tablet (15 sources) Angiotensin 2 Receptor Reinier Start: 10-19-2023 take 1 tablet by mouth once daily Losartan 100 mg tablet Active 100 MG PO Daily October 19, 2023 12:00am Start: 01-01-2019 take 1 tablet by mouth once da tc losartan 100 mg Tab 100 mg = 1 tab(s), Oral, Daily Start Date: 01/01/19 Status: Ordered lovastatin 40 mg oral tablet (15 sources) HMG-CoA Reductase Inhibitor Start: 10-19-2023 take 1 tablet by mouth once daily Lovastatin 40 mg tablet Active 40 MG PO Daily October 19, 2023 12:00am Start: 01-01-2019 take 1 tablet by [facility] once daily lovastatin 40 mg Tab 40 mg = 1 tab(s), Oral, Daily Start Date: 01/01/19 Status: Ordered magnesium oxide 400 mg oral capsule (5 sources) Start: 11-11-2023 take 1 capsule by mouth once daily Magnesium Oxide 400 mg magnesium capsule Active 400 MG PO Daily November 11, 2023 12:00am methylPREDNISolone 4 mg oral tablet (1 source) Corticosteroid Start: 07-17-2024 take 1 tablet by mouth once Methylprednisolone (Medrol (Daniel)) 4 mg tablets,dose pack Active 0 PO per package directions July 17, 2024 12:00am PO PER PKG DIR for 6 days methylsulfonylmethane 1000 mg oral tablet (4 sources) Start: 05-12-2024 take 1 capsule by mouth twice daily Methylsulfonylmethane (Msm) 1,000 mg capsule Active 1000 MG PO Twice daily May 12, 2024 1:00am take 1 capsule by [facility] every twenty-four hours MSM 500 MG 1 [...] Vitamin/Minerals - as directed Orally Active Multivitamin (Daily Multi-Vitamin) tablet (3 sources) Start: 05-12-2024 take 2 tablets by mouth once daily Multivitamin (Daily Multi-Vitamin) tablet Active 2 TAB PO Daily May 12, 2024 1:00am Start: 05-12-2024 take 2 tablets by [facility] once daily Multivitamin (Daily Multi-Vitamin) tablet Active 2 TAB PO Daily May 12, 2024 12:00am Multivitamin Adult - (3 sources) take 1 tablet by mouth once daily Multivitamin Adult - 1 tablet Orally daily Active omeprazole 40 mg delayed release oral capsule (13 sources) Proton Pump Inhibitor Start: take 1 capsule by mouth once daily Omeprazole 40 mg capsule,delayed release(DR/EC) Active 40 MG PO Daily October 19, 2023 12:00am take 1 capsule by [facility] every twenty-four hours Omeprazole 40 MG 1 [...] Active raloxifene hydrochloride 60 mg oral tablet (13 sources) Estrogen Agonist/Antagonis t Start: 10-19-2023 take 1 tablet by mouth once daily Raloxifene 60 mg tablet Active 60 MG PO Daily October 19, 2023 12:00am take 1 tablet by [facility] every twenty-four hours Raloxifene HCl 60 MG 1 Tablet orally Daily Active traZODone hydrochloride 50 mg oral tablet (4 sources) Serotonin Reuptake Inhibitor Start: 05-03-2024 take 1 tablet by mouth once daily at bedtime Trazodone 50 mg tablet Active 50 MG PO Daily at bedtime May 03, 2024 1:00am triamcinolone acetonide 0.001 mg/mg topical ointment (7 sources) Corticosteroid Start: 05-03-2024 End: 05-12-2024 Triamcinolone Acetonide 0.1 % ointment Active APPLIC TOPICAL as needed May 12, 2024 11:54am valACYclovir 1000 mg oral tablet (1 source) Herpesvirus Nucleoside Analog DNA Polymerase Inhibitor, Herpes Simplex Virus Nucleoside Analog DNA Polymerase Inhibitor, Herpes Zoster Virus Nucleoside Analog DNA Polymerase Inhibitor Start: 07-17-2024 Valacyclovir 1 gram tablet Active 1000 MG PO Q8H 09 11July 17, 2024 12:00am Vitamin B 12 500 MCG [...] mg / clavulanate 125 mg oral tablet (9 sources) Penicillin-class Antibacterial Start: 05-03-2024 End: 07-17-2024 take 1 tablet by mouth twice daily Amoxicillin-Pot Clavulanate 875-125 mg tablet Discontinued 1 TAB PO Twice daily 08 02May 03, 2024 1:00am July 17, 2024 5:46pm Start: 10-19-2023 End: 11-11-2023 take 1 tablet by mouth every twelve hours Amoxicillin-Pot Clavulanate 875-125 mg tablet Discontinued 1 TAB PO Every 12 hours 08 02October 19, 2023 12:00am November 11, 2023 1:01pm calcium carbonate 1500 mg oral tablet (6 sources) Start: 10-19-2023 End: 05-12-2024 Calcium Carbonate (Calcium 600) 600 mg calcium (1,500 mg) tablet Discontinued 1200 MG PO Daily October 19, 2023 12:00am May 12, 2024 11:53am ciprofloxacin 500 mg oral tablet (2 sources) Quinolone Antimicrobial Start: 07-02-2022 take 1 tablet by mouth once daily Cipro 500 mg Tab 500 mg = 1 tab(s), Oral, Daily, Take 1 tablet the day before the procedure and 1 tablet after the procedure, # 2 tab(s), Refills(s) 0, Pharmacy: [facility]/pharmacy #[id number], 162, cm, 07/02/22 14:24:00 EDT, Height/Length Dosing, 74, kg, 07/02/22 14:24:00 EDT, W... Start Date: 07/02/22 Status: Ordered montelukast 10 mg oral tablet (15 sources) Leukotriene Receptor Antagonist Start: 10-19-2023 End: 05-03-2024 take 1 tablet by mouth once daily Montelukast 10 mg tablet Discontinued 1 TAB PO Daily October 19, 2023 12:00am May 03, 2024 11:04am FreeTextSi Tablet orally daily; Note: Source Status: [...] Translations: [Periumbilical pain] 01-06-2019 Episodic Anxiety disorders (9 sources) Anxiety; Translations: [Anxiety disorder, unspecified] 06-29-2024 Chronic Biliary tract disease (2 sources) Biliary [...] 01-06-2019 Chronic Genitourinary symptoms and ill-defined conditions (13 sources) Other microscopic hematuria; Translations: [Microscopic hematuria] [...] Chronic Other diseases of kidney and ureters (12 sources) Secondary hyperparathyroidism; Translations: [Secondary hyperparathyroidism of renal origin] 11-09-2023 Chronic Other diseases of kidney and ureters (11 sources) Secondary hyperparathyroidism of renal origin; Translations: [...] Chronic Other nutritional; endocrine; and metabolic disorders (5 sources) Hypomagnesemia; Translations: [Hypomagnesemia] 11-09-2023 Chronic Other nutritional; endocrine; and metabolic disorders (4 sources) Hypomagnesemia; Translations: [Disorders of magnesium metabolism] 11-11-2023 Chronic Other screening for suspected conditions (not mental disorders or infectious disease) (2 sources) CT of abdomen abnormal 01-06-2019 Episodic Other upper respiratory infections (4 sources) Chronic sinusitis, unspecified; Translations: [CHRONIC SINUSITIS UNSPECIFIED] Onset: 2 Chronic Other upper respiratory infections (11 sources) Acute maxillary sinusitis; Translations: [Acute maxillary sinusitis, unspecified] 10-19-2023 Episodic Thyroid disorders (9 sources) Hypothyroidism; Translations: [Hypothyroidism, unspecified] 01-06-2019 Chronic Past or Other Problems Problem Classification Problem Date Documented Da te Episodic/Chronic Deficiency and other anemia (1 source) Anemia, unspecified; Translations: [ANEMIA UNSPECIFIED] Onset: 11-17-2021 Episodic Results Test Name Value Interpretation Reference Range Facility Erythrocyte distribution wid th Auto (RBC) [Ratio]on 05-05-2024 Erythrocyte distribution width (RBC) [Ratio] Erythrocyte distribution width [Ratio] by Automated count 11.0-15.0 [facility] Estimated glomerular filtrat ion rate (GFR) non- Americanon 05-05-2024 GFR/1.73 sq M.predicted among non-blacks MDRD (S/P/Bld) [Vol rate/Area] Estimated glomerular filtration rate (GFR) non- Low >=60 mL/min/1.73m 2 [facility] Hematocrit Auto (Bld) [Volum e fraction]on 05-05-2024 Hematocrit (Bld) [Volume fraction] Hematocrit [Volume Fraction] of Blood by Automated count 36.0-48.0 [facility] Hemoglobin [Mass/volume] in Bloodon 05-05-2024 Hemoglobin (Bld) [Mass/Vol] Hemoglobin [Mass/volume] in Blood 12.0-16.0 [facility] Iron binding capacity [Mass/ volume] in Serum or Plasmaon 05-05-2024 Iron binding capacity [Mass/Vol] Iron binding capacity [Mass/volume] in Serum or Plasma Low 250.0-450.0 [facility] Iron saturation [Mass Fracti on] in Serum or Plasmaon 05-05-2024 Iron saturation [Mass fraction] Iron saturation [Mass Fraction] in Serum or Plasma [facility] Laboratory - Chemistry and C hemistry - challengeon 05-05-2024 Albumin [Mass/Vol] 3.1 g/dL Low 3.4-5.0 [facility] Calcium [Mass/Vol] 8.3 mg/dL Low 8.5-10.1 [facility] Chloride [Moles/Vol] 105 mmol/L 98-107 [facility] CO2 [Moles/Vol] 28.9 mmol/L 21.0-32.0 [facility] Creatinine [Mass/Vol] 1.47 mg/dL High 0.55-1.02 [facility] Ferritin [Mass/Vol] 93.0 ng/mL 8.0-252.0 [facility] GFR/1.73 sq M.predicted MDRD (S/P/Bld) [Vol rate/Area] 42 mL/min/{1.73_m2} Low >=60 mL/min/1.73m 2 [facility] Glucose [Mass/Vol] 104 mg/dL 74-106 [facility] Iron [Mass/Vol] 40.0 ug/dL Low 50.0-170.0 [facility] Magnesium [Mass/Vol] 2.0 mg/dL 1.8-2.4 [facility] Potassium [Moles/Vol] 4.0 mmol/L 3.5-5.1 [facility] Sodium [Moles/Vol] 143 mmol/L 136-145 [facility] Urate [Mass/Vol] 5.1 mg/dL 2.6-6.0 [facility] Urea nitrogen [Mass/Vol] 16.0 mg/dL 7.0-18.0 [facility] Urea nitrogen/Creatinine [Mass ratio] 10.9 mg/mg [facility] Bilirubin Ql (U) Negative NEGATIVE [facility] Glucose (U) [Mass/Vol] Negative NEGATIVE [facility] Ketones Ql (U) Negative NEGATIVE [facility] pH (U) 5.5 [pH] 5.0-9.0 [facility] Specific gravity (U) [Rel density] >=1.030 Abnormal 1.005-1.025 [facility] Urobilinogen Qn (U) 0.2 {Mikel'U}/dL 0.2-1.0 [facility] Laboratory - Specimen inform ationon 05-05-2024 Appearance (U) CLEAR CLEAR [facility] Color (U) YELLOW YELLOW [facility] Laboratory - Urinalysison Leukocyte esterase Test strip Ql (U) SMALL Abnormal NEGATIVE [facility] Mucus Ql (Urine sed) TRACE Abnormal NONE SEEN [facility] Nitrite Ql (U) Negative NEGATIVE [facility] Protein (U) [Mass/Vol] 38.9 mg/dL High <=11.9 [facility] Protein Ql (U) TRACE mg/dL NEG/TRACE [facility] Leukocytes [#/volume] correc milagros for nucleated erythrocytes in Blood by Automated counon 05-05-2024 WBC corrected for nucl RBC Auto (Bld) [#/Vol] Leukocytes [#/volume] corrected for nucleated erythrocytes in Blood by Automated coun 4.0-11.0 [facility] MCH Auto (RBC) [Entitic mass ]on 05-05-2024 MCH (RBC) [Entitic mass] MCH [Entitic mass] by Automated count 26.7-34.0 [facility] MCHC Auto (RBC) [Mass/Vol]on 05-05-2024 MCHC (RBC) [Mass/Vol] MCHC [Mass/volume] by Automated count 29.9-35.2 [facility] MCV Auto (RBC) [Entitic vol] on 05-05-2024 MCV (RBC) [Entitic vol] MCV [Entitic volume] by Automated count 81.0-99.0 [facility] No Panel Informationon 05-05 25-Hydroxy Vitamin D Total 76.3 ng/mL [facility] Comment on above: <20 ng/mL Vit D defi cient20-<30 ng/mL Vit D [id number] ng/mL Vit D sufficient>100 ng/mL Potential Toxicity Parathyroid Hormone (Intact) 90 pg/mL Abnormal 15-65 [facility] Comment on above: Performed at: [address] [id number] Director: Rich Camejo PhD, Phone: [phone] Phosphorus Level 3.1 mg/dL 2.6-4.7 [facility] Urine Bacteria SMALL #/HPF Abnormal NONE SEEN [facility] Urine Occult Blood SMALL Abnormal NEGATIVE [facility] Urine Random Creatinine 232.52 mg/dL 20.00-300.00 [facility] Urine RBC 2-5 #/HPF Abnormal 0-2 [facility] Urine Squamous Epithelial Cells MODERATE #/LPF Abnormal NONE/RARE [facility] Urine WBC 10-20 #/HPF Abnormal NONE SEEN [facility] Platelet mean volume Auto (B ld) [Entitic vol]on 05-05-2024 Platelet mean volume (Bld) [Entitic vol] Platelet mean volume [Entitic volume] in Blood by Automated count 9.5-13.5 [facility] Platelets Auto (Bld) [#/Vol] on 05-05-2024 Platelets (Bld) [#/Vol] Platelets [#/volume] in Blood by Automated count Low 150-450 [facility] RBC Auto (Bld) [#/Vol]on RBC (Bld) [#/Vol] Erythrocytes [#/volume] in Blood by Automated count 4.20-5.40 [facility] Serum or plasma anion gap de terminationon 05-05-2024 Anion gap [Moles/Vol] Serum or plasma anion gap determination [facility] Urine protein/creatinine rat ioon 05-05-2024 Protein/Creatinine (U) [Ratio] Urine protein/creatinine ratio [facility] Erythrocyte distribution wid th Auto (RBC) [Ratio]on 11-07-2023 Erythrocyte distribution width (RBC) [Ratio] 13.8 % 11.0-15.0 [facility] Estimated glomerular filtrat ion rate (GFR) non- Americanon 11-07-2023 GFR/1.73 sq M.predicted among non-blacks MDRD (S/P/Bld) [Vol rate/Area] 35 mL/min/{1.73_m2} Low >=60 [facility] Hematocrit Auto (Bld) [Volum e fraction]on 11-07-2023 Hematocrit (Bld) [Volume fraction] 38.7 % 36.0-48.0 [facility] Hemoglobin [Mass/volume] in Bloodon 11-07-2023 Hemoglobin (Bld) [Mass/Vol] 11.9 g/dL Low 12.0-16.0 [facility] Laboratory - Chemistry and C hemistry - challengeon 11-07-2023 Albumin [Mass/Vol] 3.1 g/dL Low 3.4-5.0 [facility] Calcium [Mass/Vol] 8.7 mg/dL 8.5-10.1 [facility] Chloride [Moles/Vol] 103 mmol/L 98-107 [facility] CO2 [Moles/Vol] 28.9 mmol/L 21.0-32.0 [facility] Creatinine [Mass/Vol] 1.46 mg/dL High 0.55-1.02 [facility] GFR/1.73 sq M.predicted MDRD (S/P/Bld) [Vol rate/Area] 43 mL/min/{1.73_m2} Low >=60 [facility] Glucose [Mass/Vol] 100 mg/dL 74-106 [facility] Magnesium [Mass/Vol] 1.6 mg/dL Low 1.8-2.4 [facility] Potassium [Moles/Vol] 3.8 mmol/L 3.5-5.1 [facility] Sodium [Moles/Vol] 141 mmol/L 136-145 [facility] Urate [Mass/Vol] 5.3 mg/dL 2.6-6.0 [facility] Urea nitrogen [Mass/Vol] 21.0 mg/dL High 7.0-18.0 [facility] Urea nitrogen/Creatinine [Mass ratio] 14.4 mg/mg [facility] Bilirubin Ql (U) Negative NEGATIVE [facility] Glucose (U) [Mass/Vol] Negative NEGATIVE [facility] Ketones Ql (U) Negative NEGATIVE [facility] pH (U) 6.0 [pH] 5.0-9.0 [facility] Specific gravity (U) [Rel density] >=1.030 Abnormal 1.005-1.025 [facility] Urobilinogen Qn (U) 0.2 {Mikel'U}/dL 0.2-1.0 [facility] Laboratory - Specimen inform ationon 11-07-2023 Appearance (U) CLEAR CLEAR [facility] Color (U) LT. YELLOW YELLOW [facility] Laboratory - Urinalysison Hyaline casts LM Ql (Urine sed) RARE [facility] Leukocyte esterase Test strip Ql (U) MODERATE Abnormal NEGATIVE [facility] Mucus Ql (Urine sed) SMALL Abnormal NONE SEEN [facility] Nitrite Ql (U) Negative NEGATIVE [facility] Protein Ql (U) TRACE mg/dL NEG/TRACE [facility] Leukocytes [#/volume] correc milagros for nucleated erythrocytes in Blood by Automated counon 11-07-2023 WBC corrected for nucl RBC Auto (Bld) [#/Vol] 7.5 10 3/uL 4.0-11.0 [facility] MCH Auto (RBC) [Entitic mass ]on 11-07-2023 MCH (RBC) [Entitic mass] 27.2 pg 26.7-34.0 [facility] MCHC Auto (RBC) [Mass/Vol]on 11-07-2023 MCHC (RBC) [Mass/Vol] 30.7 g/dL 29.9-35.2 [facility] MCV Auto (RBC) [Entitic vol] on 11-07-2023 MCV (RBC) [Entitic vol] 88.4 fL 81.0-99.0 [facility] No Panel Informationon 11-06 25-Hydroxy Vitamin D Total 83.6 ng/mL [facility] Comment on above: <20 ng/mL Vit D defi cient20-<30 ng/mL Vit D [id number] ng/mL Vit D sufficient>100 ng/mL Potential Toxicity Parathyroid Hormone (Intact) 70 pg/mL Abnormal 15-65 [facility] Comment on above: Performed at: [facility] [address] [id number] Director: Rich Camejo PhD, Phone: [phone] Phosphorus Level 3.2 mg/dL 2.6-4.7 [facility] Urine Bacteria SMALL #/HPF Abnormal NONE SEEN [facility] Urine Occult Blood SMALL Abnormal NEGATIVE [facility] Urine Other Casts SEEN #/LPF Abnormal NONE SEEN [facility] Urine Other Crystals None Seen #/HPF None Seen [facility] Urine RBC 0-2 #/HPF 0-2 [facility] Urine Squamous Epithelial Cells MANY #/LPF Abnormal NONE/RARE [facility] Urine Transitional Epithelial Cells MANY #/LPF Abnormal NONE SEEN [facility] Urine WBC 10-20 #/HPF Abnormal NONE SEEN [facility] Platelet mean volume Auto (B ld) [Entitic vol]on 11-07-2023 Platelet mean volume (Bld) [Entitic vol] 12.6 fL 9.5-13.5 [facility] Platelets Auto (Bld) [#/Vol] on 11-07-2023 Platelets (Bld) [#/Vol] 163 10 3/uL 150-450 [facility] RBC Auto (Bld) [#/Vol]on RBC (Bld) [#/Vol] 4.38 10 6/uL 4.20-5.40 [facility] Serum or plasma anion gap de terminationon 11-07-2023 Anion gap [Moles/Vol] 12.9 mmol/L [facility] Coding Summary.on 07-19-2022 Coding Summary. [id number] Ww+PGhlYWQ+QN5WPZUfL 67dgQNgwP9aU6RYXHjLA ywgQVBQTElOSyIgbmFtZ L4npVTsMTZd IC8+EY8qMSPrWgihzJHh x8Q4gUI5J26zkh4vJKvz xPL4TFEiTiJfsnzzk0ul jHe7TDenDnwwYqOm WNHkzI97HOV8pQ97Qv91 xKOcvYQwi1iknIf5JxMn LDTyOUZ6pSubQMnwb8Qz KOVnS95qqZKlz9R8 IGNvbGxhcHNlOyBlbXB0 lD0sDWxdomfay8hcsioc Pmo6oa23zQGlh3T8mZJ9 B9RsuzW5ZVKlaHSw ZwacpDACbO7dalfec9xa remcEfAlLSWyIBn0VQc6 XZQsbFtnHtCiUQ63BQY8 GKXudaWmH9HuGIAx iRlwQlI1o9C9Js6ZC2LD GrhoH8JWCUNIBXuydXK+ TG19qy42J8NqOplnOwf3 ANCgHZZ0dKD2wX1x YMMvYCbqj5D2lZY0I9Bk nyHdpf8bg0fpHSLjIIld E56ulGCrd8Y4TWLzvPI2 OHEkvMecCjFgtA87 Oyc+DOCyiUznn3MxFjyo m1owb8ctmFm7LjyrTOSw awOgxEjaCXL5x4CpNe5y KPZthQV5tBQ4uE8i ZdGyIpP7FOtcL767DvSm bSVzCdzwK75cO6GzzHS+ HRFmZth5ZDKhyVxfNG4x W0JgRQRqlhzqoHKy jKorIF4sOEIhtbhbCDMo bL8eZCUwH9h6RdOaEyU6 DGelA5OsYHKkmamkFq12 rY9aVwFrUzN9YFla K9ZifdX1IHXzpKQdNRzc KQK8H26rw9B3IGLeOOLa BPB6mQG6hF9qaTjrtrmo bGVmdDsgdmVydGlj QMweNAigS971DPQiwUlz PkNvZGluZyBEYXRlOiAg MDMvMzAvMjAyMzwvdGQ+ KBHvFCR9fOfpNRZu aGZqQFpzGh0lvJblhYot IM1yEZOkkdcyVWWkhJ1x JWAwwEQzfNadYZ5rIPVh fchgu430AfNiGCF6 ITWlxEQhH4DfkX2qJnXh AGVuTMBlD5IqnQVrKBmw A097ARryZeT0TJKsheFv Z8CcZEDfvBmwJbR1 b6F1De9Tu9QarfpzT0Kl zDLpUlKcGobaPAo5C8Wz PjwvdHI+TX74BVGmOC57 RQg9YZS8vYwoWOpu IPGbY5XhtO9yRoEvOJJh ZGRkOyc+PHRhYmxlIHdp ZHRoPScxMDAlJyBzdHls DF8lVf7aXQZbGZVt kExhdCXvLiNyy9rwCJCt CQcfVE4ttJdbA2ZcqLX0 AZSlp3w8Lt60U80nK9Vu dXA+RKCbkSE6tRM5 rG7mPmCeSiT2AAmvZ909 YsTuaXWlFuxbv1kvx4nr vAl3CnK8SQCgggNftPfr CQF9z3MzIi52I47d IHdpZHRoPSIxNSUiIHZh jBofbw2njD0gJb4+PGNv bJT7dML0vW8wKmUwHaT9 AIhbS957SzMxdAOm Fnckb9upz6atbDp1UoQg MODvdgWscIkkGBM4d8Ge Gr05J9JsqUmvd0FnSjg8 hk50vTOxg5X7jKN7 V0CqETBpdxzueTAirFbo ND8zRIDlrqywMVNnwO6d YXSlL9k9LgHbMoL6RLix E4FckwE8NBLdnQGq JBJakFCPxX5mgvrow3yo qjucNoHcHTTrRXd3VCn7 NVZcjGxcLpPnXGZ5FjG0 LQY2kRLztY2tmTsj lerajY5bJvp+JYX4sTUz hIQYBC1yHbegbYP+PHRk VSK0aZthUQgjJXRayG3d SNGyR8r5KaQgGcB2 VRftP1YawfQ9SKXapQFf BNOrnFGCoQ5ejdzdp0pd bzlySzGiGUBbRZd7TLt1 LWFsaWduOiBsZWZ0 YhE8SWH1eKTikT1liIla tzaytC7lOju+QmlydGgg VQL6ZQf5V0OeOrr4MBYh wVraHM4jaJMkIMfr Zr2mmOoqeJpaJO9dEAVq rczxr949MtIbs4keJCHz nCVqGMsmDHB5C91xh3J6 RAXyYRNzAYZ8fRX0 mT1ozYxxpfsguZVkiCvv eaUlrVgyEVawXUroG743 GAMduSzhWzVeXTs4N4Tp Jhh4URIyoWhsUF7k kXQfFXwmVb7nxXosdRml TJ1aQMLraoiqb283FbCn c4miGLJgaPDkXRkiTBO6 C26de7O3YFKoNBFu KDM6gRR4oS3egAnvdeoh bGVmdDsgdmVydGljYWwt HGrtC567BNIhhNkoGvQm qGd7V8CmVtu3JMMj kLdsUR2fjMBtMIlxKz6d tVuowPatUQ9eJYKthijl k140HaEen5ieHNWbsQXv EHaiTVP1A44zu9H5 BBVpOAAuDSO9yXA8bI4n bGlnbjogbGVmdDsgdmVy lOeqFGbtHGctF517RLWt cDsnPlBhdGllbnQg TDjqGCi9A6McJqngvBQ+ YF39NFQnBK13sIQcvUFt k4eszYx8WpFsRWSqXQA4 mNseSLute0KeDJNu G32cmUZtl1G0WANacKoh bURdKmToaNW4oG4tFQbw adsre3bzmazrYmymr7ym hb05jL03U28yBPkg ZHRoPSIzMCUiIHZhbGln nk2bjS6zUj9+PGNvbCB3 cEF4kS0sLBBhHcW5FUjp V218UoFxcEPzNjxl a7vjc6atsDt8PyB2VKUf maEffWidHLO5o1McPc24 L61cHXthPCQdJXAsMPWi YVBjdMegwl8aeQ4t Ii8+QQNnxIB5hVD7nS4l RgPjQsN4UWgiB286HdZg rALrOmaqZ07fX0QlhJX+ QRUrLuj5IODwcOvp RS0cxJFbMWmcAv5kGQE1 HiShLpVzAAcnE0VeJGFs mmkbluuknAU0MQBsPOJz lC90Ie6btIyiOLHv lCAHeI6ehqops5vftpiy LrRaEOWrMAt9SKj4ZRNn hIrnOcXcJYF3QiF8YTH6 qMSglL2szOrqzeyj sT2jD8VxDFJtkruwRl19 tD6bFgRaFeU8UKxfKhz+ G7JEBqMFGAIRPQNWR8MN TkUgQTwvdGQ+PHRk FBQ9yMddDRvcNKHzwG8e XMGvZ7w0XjOeGjI9PHhz U3PoDUAqymriZo20nV8c FyYbAaY6ZBitJ5Gc hmA3STNovCDbXMryVCX7 S90oo2M6WQZzIMImSTG3 zCQ7dT2azNjtrixylGEn dDsgdmVydGljYWwt NMvxA895QNUohSvzNpKg KoWnTsP0TSB7W6JkWpz8 BFHaqDsmNI7dyLXkWRaf Ha3ifVkuhVzoSI3y MTWwmouxAVJbsI6mQIId hPSgmIqhWT2yEZKmjuvu m055EhLcTNM7QYAppQUg Y6VsyG7qDeOkEEWn DBPsJ3CxbNAaYBooP830 JLglAdY5JDSyalFgE0Uy RQDtkQjeBmS3p5G7Mb22 MCBZZWFyczwvdGQ+ JIQxJAF0rCcaJItvIFSo nV4cYMLxO0y3BqGjFuM5 LEpwH9SgROBttcokWq08 vZ0zQpWcMrM4SWwt M0VptjR1LJNvxKWuUXyn AKW2X90hx3U9JUMwZIBt OBX5lSL5fD7hpOtinvch bGVmdDsgdmVydGlj BMoeQDzlX191VVCwdTut PkZlbWFsZTwvdGQ+PHRk FED7kWtdCHpzNYCclU6z GGUnM5y6XhIeFbA8 ZKkoQ8UvMZQljxlmRk40 aK1bGlZeNhH7ZLsrR0Rk pbK3SYIcdHQjOXutPRM2 X32zb8V1IPOjVJRj RXX4fLK3dA7goNwhikdv bGVmdDsgdmVydGljYWwt VHxyH098YISxnYbmLt59 rUElpSrrqaM5C2Ei PjwvdHI+IN29YAPiSA02 bPAoiXOmn3ctkTh3WtYc JBJnGFR2eZvoBPmhx6Ps DZNbZ08hsORvd2Q6 IGNvbGxhcHNlOyBlbXB0 yU8gRDlhttbne0foubfh Acbgw8hoce60vI86U92k IHdpZHRoPSIzMCUi EVZooAcluh4veS5cJy5+ KDUilWI2vAJ5fY4fWpHp NqO0WGoiJ551GmQelGZe Qmpfd9yfo9lqgOk4 IjIwJSIgdmFsaWduPSJ0 v2BlOh93B79nMVcoTNPr KAVeJLYaXMNbhNsonv1v aI1sAw4+DF4rb4zm ch57dP84mPZ+PHRkIHN0 yUpeASefMXEfzY9pQUcz CsV8WGWwUpLmvX28jCPq NDlqSl8axKgkzNpy PW8wYHCcoxuir531StFl e5nmVZGfqYKvGRwoLGO3 Z22bp7A0HASgZWXrTAU6 hRN7mM0hsQrmcvfh bGVmdDsgdmVydGljYWwt BFyhJ894MYYitKkjIeGe eYHqM1nuphZYIK4mBpxe dGQ+DSYmXQM2xUjd XZkmSGBrvG2nCIJbA7i8 UnCuAdC4BZrzV5MgsnY4 RJVxrZBmFKJegFSDzI6b prjsu2ubbqjzTmJb MGXrFKx9GSk9IPDwlTaw BjZaURI4BjZ8VSW7nSBi cV4xwEtntcmtgE2uJvi+ RklOOjwvdGQ+PHRk SRJ0kJubZOoaFVRugQ7j KBVjL5w4YoUrYxZ4TAay G7FzxrJ6UTWwwUHzCBQa uSVWfJ6xahhef3br huwwDqNtXWSlPKb8ZCm6 VDYhqUomYdVnUFF2FvS3 ABH4tWQiiA3zcLwdlxgu kX1zNxq+TVJOOjwv dGQ+VKEmHBR5yCxsOFgk EHBvcN7xLAXlV4e6FjTh DzW1YJviP9SofbE6DTKk bFMuYVBhxCSBiB8n tboys6xzklpzRvFoPYSa RYx5AKn8IYOkgFjpXtPv KCC2OjS7UZP8xEXzxH7r sYrzaxeasS0cWww+ HYF5GPP4HV63TO54Y2Em PjwvdGFibGU+PHRhYmxl IHdpZHRoPScxMDAlJyBz zJjjIK7yIq6jDDQi LWNvbGxh (more content not included)... [facility] Consent for Procedure/Surger yon 07-17-2022 Consent for Procedure/Surgery [id number]#1.00CD:127 [facility] Consent for Treatmenton - Consent for Treatment [id number] #1.00CD:127 [facility] IntraOperative Documentson 0 07-17-2022 IntraOperative Documents [id number] 2#1.00CD:127 Normal [facility] Main OR Intraoperative Recor don 07-17-2022 Main OR Intraoperative Record IntraOp Document Type FTURO Summary Primary Physician: Iván TOMLIN MD Finalized Date/Time: 07/17/22 09:10:19 Pt. Name: PEG HADLEY/Sex: 1950 Female Med Rec #: [id number] Physician: Iván TOMLIN MD Financial #: [id number] Pt. Type: O Room/Bed: / Admit/Disch: 07/17/22 08:15:03 - Institution: Case Times FTURO Entry 1 Patient Times In Room 07/17/22 09:02:00 Out Room 07/17/22 09:15:00 Procedure Times Start 07/17/22 09:05:00 Stop 07/17/22 09:10:00 Anesthesia Times Last Modified By: Kusum BELL, DEDRA, Stefani 07/17/22 09:08:13 Case Attendance FTURO Entry 1 Entry 2 Entry 3 Case Attendee Iván TOMLIN MD RN, KRISTIANOR, Lorraine BARNES, Palma Ko Role Performed Surgeon - Primary Medical Technician Assistant - Primary Scrub - Primary Time In [...] Participants Kusum BELL, KRISTIANOR, Applicable) Lorraine Ko CST, Palma Flynn Time [...] DEDRA Noe RN, Ruthann 07/17/22 09:10 Normal [facility] Main OR Preoperative Recordo n 07-17-2022 Main OR Preoperative Record Holding Area Document Type FTURO Summary Primary Physician: Iván TOMLIN MD Finalized Date/Time: 07/17/22 09:04:54 Pt. Name: PEG HADLEY/Sex: 1950 Female Med Rec #: [id number] Physician: Iván TOMLIN MD Financial #: [id number] Pt. Type: O Room/Bed: / Admit/Disch: 07/17/22 [...] No Pain Comment: na Skin Integrity Intact, [place], Warm, & Dry Vitals - EU Blood Pressure 135/82 Pulse 65 bpm Respirations 16 br/min SPO2 96 % RN Reviewed Yes Last Modified By: DEDRA Noe RN, Ruthann 07/17/22 09:04:49 General Comments: temp:36.4 Finalized By: DEDRA Noe RN, Stefani Document Signatures Signed By: Anival BIRDMaeve Fernando 07/17/22 08:41 DEDRA Noe RN, Ruthann 07/17/22 09:04 Normal [facility] Operative Reporton Operative Report Patient: PEG [...] a as needed basis.. Normal [facility] Comment on above: Result Comment: Elec tronically Signed By: Iván TOMLIN MD\.br\Date and Time Signed: 07/17/22 09:13 EDT RAD - Ultrasound Reporton RAD - Ultrasound Report [id number] #1.00CD:127 Normal [facility] Urine Cytology ([facility])on 0 07-09-2022 Urine Cytology Diagnosis Info Invalid Interpretation Code [facility] Comment on above: Result Comment: A:Ur ine,Urine:Voided Interpretation - MicroScopic Description - Adequacy - Gross Description Site ID:A color Light Yellow fixative Alcohol Specimen designated Urine received in alcohol preservative and labeled with the patient?s name, consists of 40ml clear light yellow fluid. Electronically signed by : on: 07/09/2022 15:10:50 Performed By: #### 1 [id number] ####[facility] [address] [place] [address] US KIDNEYSon 07-07-2022 US KIDNEYS [...] by: DANIELLE CAM Date: 2022-07-07 10:33 Normal [facility] Formson 07-03-2022 Forms [id number] #1.00CD:127 Normal [facility] Physician Referralon 023 Physician Referral [id number] #1.00CD:127 Normal [facility] Pre-Certification Formon Pre-Certification Form [id number] 8#1.00CD:127 Normal [facility] Ambulatory Visit Summaryon 0 07-02-2022 Ambulatory Visit Summary PEG HADLEY :1950 Visit Date:07/02/2022 Ambulatory Visit Instructions Your Diagnosis Microscopic hematuria Tests Performed Urnls Dip Stick Auto w/o Microscopy POC 53411 US Renal -- Results Pending -- Please visit your patient portal for your results or contact your primary care physician. Your Care Team Attending Physician - Iván TOMLIN MD Primary Care Physician - YARITZA PEPPER CNP Referring Physician - DIONNE BLACKMON, AUDIE This Is Your Medications List Contact prescribing physician if questions or concerns APAP/ASA/caffeine (Excedrin Migraine) aspirin (aspirin 81 mg oral tablet) dicyclomine (dicyclomine 20 mg Tab) fluticasone nasal (fluticasone 0.05 mg/inh Nasal [place]) hyoscyamine (hyoscyamine 0.125 mg oral Tab) levothyroxine [...] Where: [facility] [address] , [place] [address]- Medications What How Much When Instructions Unchanged [...] fluticasone nasal (fluticasone 0.05 mg/ inh Nasal [place]) 2 Sprays Nasal Inhalation Every day each [...] Urnls Dip Stick Auto w/o Microscopy POC 83500 (07/02/2022) Bilirubin Urine Dipstick - Negative Blood Urine Dipstick - Trace-lysed Glucose Urine Dipstick - Negative Ketones Urine Dipstick - Negative Leukocytes Urine Dipstick - Negative Nitrite Urine Dipstick - Negative Protein Urine Dipstick - Negative Specific [place] Urine Dipstick - >=1.030 Urine Appearance Urine [...] ? (more content not included)... Normal [facility] Patient Educationon 07-03-19 Patient Education [...] these instructions at home: Medicines ? Take clmy-zxl-xtsumok and prescription medicines only as told by [...] the blood stops without treatment. ? Take ebgz-ukw-dznmprp and prescription medicines only as told by your health care provider. ? Drink enough fluid to keep your urine clear or pale yellow. This information is not intended to replace advice given to you by your health care provider. Make sure you discuss any questions you have with your health care provider. Document Released: 04/08/2006 Document Revised: 09/02/2019 Document Reviewed: 05/11/2017 [employer] Patient Education ? 2019 [employer] Normal [facility] Urine Cytology ([facility])on 0 07-02-2022 Method of Extraction Voided Normal [facility] Comment on above: Performed By: #### 1 [id number] ####[facility] [address] [place] [address] Number of Jars 1 Invalid Interpretation Code [facility] Comment on above: Performed By: #### 1 [id number] ####[facility] [address] [place] [address] Specimen Urine Normal [facility] Comment on above: Performed By: #### 1 [id number] ####[facility] [address] [facility] [place] [address] Type of Service Technical Only Normal [facility] Comment on above: Performed By: #### 1 [id number] ####[facility] [address] [facility] [place] [address] PTH INTACTon 05-22-2022 PTH, Intact 75 pg/mL Critically high 15-65 [facility] Comment on above: Performed By: #### P THINT #### [facility] [address] [address] [address] Andrea Mccarthy FERRITINon 05-21-2022 Ferritin [Mass/Vol] 124.0 ng/mL Normal 8.0-252.0 [facility] Comment on above: Performed By: #### U KIM, MG, PHOS #### [facility] [address] [address] [address] Andrea Mccarthy HEMOGRAM AND PLATELon 2022 Hematocrit (Bld) [Volume fraction] 40.1 % Normal 36.0-48.0 [facility] Comment on above: Performed By: #### U KIM, MG, PHOS #### [facility] [address] [place] [address] Dr. Andrea Mccarthy Hemoglobin (Bld) [Mass/Vol] 13.2 g/dL Normal 12.0-16.0 [facility] Comment on above: Performed By: #### U KIM, MG, PHOS #### [facility] [address] [address] [address] Andrea Mccarthy MCH (RBC) [Entitic mass] 28.0 pg Normal 26.7-34.0 [facility] Comment on above: Performed By: #### U KIM, MG, PHOS #### [facility] [address] [place] [address] Dr. Andrea Mccarthy MCHC (RBC) [Mass/Vol] 32.9 g/dL Normal 29.9-35.2 [facility] Comment on above: Performed By: #### U KIM, MG, PHOS #### [facility] [address] [address] [address] Andrea Mccarthy MCV (RBC) [Entitic vol] 85.1 fL Normal 81.0-99.0 [facility] Comment on above: Performed By: #### U KIM, MG, PHOS #### [facility] [address] [address] [address] Andrea Mccarthy PLT 255 103/ul Normal 150-450 [facility] Comment on above: Performed By: #### U KIM, MG, PHOS #### [facility] [address] [address] [address] Andrea Mccarthy RBC 4.71 106/ul Normal 4.20-5.40 [facility] Comment on above: Performed By: #### U KIM, MG, PHOS #### [facility] [address] [place] [address] Dr. Andrea Mccarthy WBC 5.9 103/ul Normal 4.0-11.0 [facility] Comment on above: Performed By: #### U KIM, MG, PHOS #### [facility] [address] [place] [address] Dr. Andrea Mccarthy IRON AND TIBCon 05-21-2022 % SATURATION 18.5 % Normal [facility] Comment on above: Performed By: #### U KIM, MG, PHOS #### [facility] [address] [address] [address] Andrea Mccarthy Iron [Mass/Vol] 51.0 ug/dL Normal 50.0-170.0 [facility] Comment on above: Performed By: #### U KIM, MG, PHOS #### [facility] [address] [place] [address] Dr. Andrea Mccarthy TIBC DIRECT 276.0 ug/dL Normal 250.0-450.0 [facility] Comment on above: Performed By: #### U KIM, MG, PHOS #### [facility] [address] [address] [address] Andrea Mccarthy MAGNESIUMon 05-21-2022 Magnesium [Mass/Vol] 1.8 mg/dL Normal 1.8-2.4 [facility] Comment on above: Performed By: #### U KIM, MG, PHOS #### [facility] [address] [address] [address] Andrea Mccarthy RENAL FUNCTION PANELon 05-21 Albumin [Mass/Vol] 3.5 g/dL Normal 3.4-5.0 [facility] Comment on above: Performed By: #### U KIM, MG, PHOS #### [facility] [address] [address] [address] Andrea Mccarthy Calcium [Mass/Vol] 8.5 mg/dL Normal 8.5-10.1 [facility] Comment on above: Performed By: #### U KIM, MG, PHOS #### [facility] [address] [address] [address] Andrea Mccarthy Chloride [Moles/Vol] 104 mmol/L Normal 98-107 [facility] Comment on above: Performed By: #### U KIM, MG, PHOS #### [facility] [address] [address] [address] Andrea Mccarthy CO2 [Moles/Vol] 29.6 mmol/L Normal 21.0-32.0 [facility] Comment on above: Performed By: #### U KIM, MG, PHOS #### [facility] [address] [address] [address] Andrea Mccarthy Creatinine [Mass/Vol] 1.23 mg/dL Critically high 0.55-1.02 [facility] Comment on above: Performed By: #### U KIM, MG, PHOS #### [facility] [address] [address] [address] Andrea Mccarthy EGFR-AF FINNISH 52 mL/min/1.73m2 Critically low >=60 [facility] Comment on above: Performed By: #### U KIM, MG, PHOS #### [facility] [address] [address] [address] Andrea Mccarthy EGFR-NON AF FINNISH 43 mL/min/1.73m2 Critically low >=60 [facility] Comment on above: Performed By: #### U KIM, MG, PHOS #### [facility] [address] [place] [address] Dr. Andrea Mccarthy Glucose [Mass/Vol] 92 mg/dL Normal 74-106 [facility] Comment on above: Performed By: #### U KIM, MG, PHOS #### [facility] [address] [place] [address] Dr. Andrea Mccarthy Phosphate [Mass/Vol] 3.3 mg/dL Normal 2.6-4.7 [facility] Comment on above: Performed By: #### U KIM, MG, PHOS #### [facility] [address] [place] [address] Dr. Andrea Mccarthy Potassium [Moles/Vol] 3.9 mmol/L Normal 3.5-5.1 [facility] Comment on above: Performed By: #### U KIM, MG, PHOS #### [facility] [address] [place] [address] Dr. Andrea Mccarthy Sodium [Moles/Vol] 141 mmol/L Normal 136-145 [facility] Comment on above: Performed By: #### U KIM, MG, PHOS #### [facility] [address] [place] [address] Dr. Andrea Mccarthy Urea nitrogen [Mass/Vol] 25.0 mg/dL Critically high 7.0-18.0 [facility] Comment on above: Performed By: #### U KIM, MG, PHOS #### [facility] [address] [place] [address] Dr. Andrea Mccarthy UA RANDOM W/MICROSCOPICon BACTERIA NONE SEEN Normal NONE SEEN [facility] Comment on above: Performed By: #### U AMIC #### [facility] [address] [place] [address] Dr. Andrea Mccarthy Bilirubin Ql (U) Negative Normal NEGATIVE [facility] Comment on above: Performed By: #### U AMIC #### [facility] [address] [place] [address] Dr. Andrea Mccarthy CAST NONE SEEN Normal NONE SEEN [facility] Comment on above: Performed By: #### U AMIC #### [facility] [address] [place] [address] Dr. Andrea Mccarthy Clarity (U) CLEAR Normal CLEAR [facility] Comment on above: Performed By: #### U AMIC #### [facility] [address] [place] [address] Dr. Andrea Mccarthy Color (U) YELLOW Normal YELLOW [facility] Comment on above: Performed By: #### U AMIC #### [facility] [address] [place] [address] Dr. Andrea Mccarthy Crystals LM Nom (Urine sed) NONE SEEN Normal NONE SEEN [facility] Comment on above: Performed By: #### U AMIC #### [facility] [address] [place] [address] Dr. Andrea Mccarthy Epithelial cells LM Ql (Urine sed) FEW Abnormal NONE SEEN /RARE [facility] Comment on above: Performed By: #### U AMIC #### [facility] [address] [place] [address] Dr. Andrea Mccarthy Glucose Ql (U) Negative Normal NEGATIVE [facility] Comment on above: Performed By: #### U AMIC #### [facility] [address] [place] [address] Dr. Andrea Mccarthy Hemoglobin Ql (U) TRACE-INTACT Abnormal NEGATIVE [facility] Comment on above: Performed By: #### U AMIC #### [facility] [address] [place] [address] Dr. Andrea Mccarthy Ketones Ql (U) Negative Normal NEGATIVE [facility] Comment on above: Performed By: #### U AMIC #### [facility] [address] [place] [address] Dr. Andrea Mccarthy LEUKOCYTES Negative Normal NEGATIVE [facility] Comment on above: Performed By: #### U AMIC #### [facility] [address] [place] [address] Dr. Andrea Mccarthy MUCOUS TRACE Abnormal NONE SEEN [facility] Comment on above: Performed By: #### U AMIC #### [facility] [address] [address] [address] Andrea Mccarthy Nitrite Ql (U) Negative Normal NEGATIVE [facility] Comment on above: Performed By: #### U AMIC #### [facility] [address] [address] [address] Andrea Mccarthy pH (U) 5.0 [pH] Normal 5-9 [facility] Comment on above: Performed By: #### U AMIC #### [facility] [address] [place] [address] Dr. Andrea Mccarthy RBC 0-2 Normal 0-2 [facility] Comment on above: Performed By: #### U AMIC #### [facility] [address] [place] [address] Dr. Andrea Mccarthy SPEC GRAVITY 1.025 Normal 1.005-<=1.025 [facility] Comment on above: Performed By: #### U AMIC #### [facility] [address] [address] [address] Andrea Mccarthy UA PROTEIN Negative Normal NEGATIVE/ TRACE [facility] Comment on above: Performed By: #### U AMIC #### [facility] [address] [place] [address] Dr. Andrea Mccarthy Urobilinogen Qn (U) 0.2 {Mikel'U}/dL Normal 0.2 - 1. 0 [facility] Comment on above: Performed By: #### U AMIC #### [facility] [address] [address] [address] Andrea Mccarthy WBC NONE SEEN Normal NONE SEEN [facility] Comment on above: Performed By: #### U AMIC #### [facility] [address] [address] [address] Andrea Mccarthy URINE T PROTEIN CREAT RATIOo n 05-21-2022 Protein (U) [Mass/Vol] 21.5 mg/dL Critically high <=12.0 [facility] Comment on above: Performed By: #### U KIM, MG, PHOS #### [facility] [address] [place] [address] Dr. Andrea Mccarthy UR PROT CREAT RAT 0.15 Normal [facility] Comment on above: Performed By: #### U KIM, MG, PHOS #### [facility] [address] [address] [address] Andrea Mccarthy URINE CREAT 144.81 mg/dL Normal 20.00-300.00 [facility] Comment on above: Performed By: #### U KIM, MG, PHOS #### [facility] [address] [address] [address] Andrea Mccarthy VIT B12 AND FOLATEon 023 Cobalamin (Vitamin B12) [Mass/Vol] 1425.0 pg/mL Critically high 193.0-986.0 [facility] Comment on above: Performed By: #### U KIM, MG, PHOS #### [facility] [address] [address] [address] Andrea Mccarthy FOLATE 22.60 ng/mL Normal 8.60-58.90 [facility] Comment on above: Performed By: #### U KIM, MG, PHOS #### [facility] [address] [address] [address] SINUSES WO CONon [...] STEPHEN ROBLES Date: 2022-01-01 07:30 Normal [facility] INSULINon 11-15-2021 Insulin 9.0 uIU/mL Normal 2.6-24.9 [facility] Comment on above: Performed By: #### I NSULIN #### [facility] [address] [address] [address] Andrea Mccarthy PTH INTACTon 11-15-2021 PTH, Intact 43 pg/mL Normal 15-65 [facility] Comment on above: Performed By: #### U KIM, MG, PHOS #### [facility] [address] [address] [address] Andrea Mccarthy VIT D 25-[place] [facility]ABCORPon 2021 Vitamin D, 25-Hydroxy 85.4 ng/mL Normal 30.0-100.0 [facility] Comment on above: Result Comment: Samina min D deficiency has been defined by the [place] of Medicine and an Endocrine Society practice guideline as a level of serum 25-OH vitamin D less than 20 ng/mL (1,2). The Endocrine Society went on to further define vitamin D insufficiency as a level between 21 and 29 ng/mL (2). 1. IOM ([place] of Medicine). 2010. Dietary reference intakes for calcium and D. [place]: The National Academies Press. 2. Dagoberto MF, Rachel NC, Edilson MARTINEZ, et al. Evaluation, treatment, and prevention of vitamin D deficiency: an Endocrine Society clinical practice guideline. JCEM. 2010; 96(7):1911-30. Performed By: #### V ITADLC #### [facility] [address] [address] [address] Andrea Mccarthy CBC AUTO DIFFon 11-14-2021 BASO # 0.0 103/ul Normal 0.0-0.1 [facility] Comment on above: Performed By: #### U KIM, MG, PHOS #### [facility] [address] [place] [address] Dr. Andrea Mccarthy Basophils/100 WBC (Bld) 0.6 % Normal 0.2-2.0 [facility] Comment on above: Performed By: #### U KIM, MG, PHOS #### [facility] [address] [place] [address] Dr. Andrea Mccarthy EO # 0.2 103/ul Normal 0.0-0.7 [facility] Comment on above: Performed By: #### U KIM, MG, PHOS #### [facility] [address] [place] [address] Dr. Andrea Mccarthy Eosinophils/100 WBC (Bld) 2.4 % Normal 0.9-7.0 [facility] Comment on above: Performed By: #### U KIM, MG, PHOS #### [facility] [address] [place] [address] Dr. Andrea Mccarthy Erythrocyte distribution width (RBC) [Ratio] 14.0 % Normal 11.0-15.0 [facility] Comment on above: Performed By: #### U KIM, MG, PHOS #### [facility] [address] [place] [address] Dr. Andrea Mccarthy Hematocrit (Bld) [Volume fraction] 35.7 % Critically low 36.0-48.0 [facility] Comment on above: Performed By: #### U KIM, MG, PHOS #### [facility] [address] [place] [address] Dr. Andrea Mccarthy Hemoglobin (Bld) [Mass/Vol] 11.2 g/dL Critically low 12.0-16.0 [facility] Comment on above: Performed By: #### U KIM, MG, PHOS #### [facility] [address] [place] [address] Dr. Andrea Mccarthy IG # 0.02 10e3/ul Normal 0.00-0.03 [facility] Comment on above: Performed By: #### U KIM, MG, PHOS #### [facility] [address] [address] [address] Andrea Mccarthy IG % 0.3 % Normal 0.0-0.5 [facility] Comment on above: Performed By: #### U KIM, MG, PHOS #### [facility] [address] [place] [address] Dr. Andrea Mccarthy LYMPH # 1.8 103/ul Normal 1.2-3.8 [facility] Comment on above: Performed By: #### U KIM, MG, PHOS #### [facility] [address] [place] [address] Dr. Andrea Mccarthy Lymphocytes/100 WBC (Bld) 24.9 % Normal 20.5-60.0 [facility] Comment on above: Performed By: #### U KIM, MG, PHOS #### [facility] [address] [place] [address] Dr. Andrea Mccarthy MANUAL DIFF REQ NO Normal [facility] Comment on above: Performed By: #### U KIM, MG, PHOS #### [facility] [address] [place] [address] Dr. Andrea Mccarthy MCH (RBC) [Entitic mass] 27.3 pg Normal 26.7-34.0 [facility] Comment on above: Performed By: #### U KIM, MG, PHOS #### [facility] [address] [place] [address] Dr. Andrea Mccarthy MCHC (RBC) [Mass/Vol] 31.4 g/dL Normal 29.9-35.2 [facility] Comment on above: Performed By: #### U KIM, MG, PHOS #### [facility] [address] [place] [address] Dr. Andera Mccarthy MCV (RBC) [Entitic vol] 87.1 fL Normal 81.0-99.0 [facility] Comment on above: Performed By: #### U KIM, MG, PHOS #### [facility] [address] [place] [address] Dr. Andrea Mccarthy MONO # 0.5 103/ul Normal 0.3-0.8 [facility] Comment on above: Performed By: #### U KIM, MG, PHOS #### [facility] [address] [address] [address] Andrea Mccarthy Monocytes/100 WBC (Bld) 7.0 % Normal 1.7-12.0 [facility] Comment on above: Performed By: #### U KIM, MG, PHOS #### [facility] Laboratory [address] [place] [address] Dr. Andrea Mccarthy NEUT # 4.7 103/ul Normal 1.4-6.5 [facility] Comment on above: Performed By: #### U KIM, MG, PHOS #### [facility] [address] [place] [address] Dr. Andrea Mccarthy Neutrophils/100 WBC (Bld) 64.8 % Normal 43.0-75.0 [facility] Comment on above: Performed By: #### U KIM, MG, PHOS #### [facility] [address] [place] [address] Dr. Andrea Mccarthy Platelet mean volume (Bld) [Entitic vol] 10.1 fL Normal 9.5-13.5 [facility] Comment on above: Performed By: #### U KIM, MG, PHOS #### [facility] [address] [place] [address] Dr. Andrea Mccarthy PLT 309 103/ul Normal 150-450 [facility] Comment on above: Performed By: #### U KIM, MG, PHOS #### [facility] [address] [place] [address] Dr. Andrea Mccarthy RBC 4.10 106/ul Critically low 4.20-5.40 [facility] Comment on above: Performed By: #### U KIM, MG, PHOS #### [facility] [address] [place] [address] Dr. Andrea Mccarthy WBC 7.2 103/ul Normal 4.0-11.0 [facility] Comment on above: Performed By: #### U KIM, MG, PHOS #### [facility] [address] [place] [address] Dr. Andrea Mccarthy FREE THYROXINE INDEX T7on FTI 4.14 Normal 1.30-4.50 [facility] Comment on above: Performed By: #### U KIM, MG, PHOS #### [facility] [address] [address] [address] Andrea Mccarthy T3U 36.0 % Normal 30.0-39.0 [facility] Comment on above: Performed By: #### U KIM, MG, PHOS #### [facility] [address] [address] [address] Andrea Mccarthy T4 [Mass/Vol] 11.50 ug/dL Normal 4.80-13.90 [facility] Comment on above: Performed By: #### U KIM, MG, PHOS #### [facility] [address] [place] [address] Dr. Andrea Mccarthy GLYCOHEMOGLOBIN A1Con 2021 ADA RECOMMENDATION SEE BELOW Normal [facility] Comment on above: Result Comment: ADA RECOMMENDED LIMIT 4.0 - 6.0 ADA THERAPEUTIC TARGET < 7.0 ACTION SUGGESTED > 7.0 Performed By: #### A 1C #### [facility] [address] [address] [address] Andrea Mccarthy Glucose [Mass/Vol] 137 mg/dL Normal [facility] Comment on above: Performed By: #### A 1C #### [facility] [address] [address] [address] Andrea Mccarthy HbA1c (Bld) [Mass fraction] 6.4 % Critically high 4.5-6.2 [facility] Comment on above: Performed By: #### A 1C #### [facility] [address] [address] [address] Andrea Mccarthy IRONon 11-14-2021 Iron [Mass/Vol] 34.0 ug/dL Critically low 50.0-170.0 [facility] Comment on above: Performed By: #### U KIM, MG, PHOS #### [facility] [address] [address] [address] Andrea Mccarthy LIPID PROFILEon 11-14-2021 CHOL-HDL RATIO NORM SEE BELOW Normal [facility] Comment on above: Result Comment: 3.3 - 4.4 LOW RISK 4.4 - 7.1 AVERAGE RISK 7.1 - 11.0 MODERATE RISK >11.0 HIGH RISK Performed By: #### L IPID, TSH, T7, CMP #### [facility] [address] [address] [address] Andrea Mccarthy Cholesterol [Mass/Vol] 152 mg/dL Normal <=200 [facility] Comment on above: Performed By: #### L IPID, TSH, T7, CMP #### [facility] [address] [address] [address] Andrea Mccarthy Cholesterol in HDL [Mass/Vol] 51 mg/dL Normal 40-60 [facility] Comment on above: Performed By: #### L IPID, TSH, T7, CMP #### [facility] [address] [address] [address] Andrea Mccarthy Cholesterol in LDL [Mass/Vol] 83.4 mg/dL Normal [facility] Comment on above: Performed By: #### L IPID, TSH, T7, CMP #### [facility] [address] [address] [address] Andrea Mccarthy Cholesterol.total/Ch olesterol in HDL [Mass ratio] 3.0 {ratio} Normal [facility] Comment on above: Performed By: #### L IPID, TSH, T7, CMP #### [facility] [address] [address] [address] Andrea Mccarthy HDL NORMAL > or = 60 mg/dl - LOW CARDIOVASCULAR RISK <40 mg/dl - HIGH CARDIOVASCULAR RISK Normal [facility] Comment on above: Performed By: #### L IPID, TSH, T7, CMP #### [facility] [address] [address] [address] Andrea Mccarthy LDL CALC NORMAL SEE BELOW Normal [facility] Comment on above: Result Comment: <100 mg/dl OPTIMAL 100 - 129 mg/dl NEAR OR ABOVE OPTIMAL 130 - 159 mg/dl BORDERLINE HIGH 160 - 189 mg/dl HIGH >190 mg/dl VERY HIGH Performed By: #### L IPID, TSH, T7, CMP #### [facility] [address] [place] [address] Dr. Andrea Mccarthy Triglyceride [Mass/Vol] 88 mg/dL Normal <=150 [facility] Comment on above: Performed By: #### L IPID, TSH, T7, CMP #### [facility] [address] [place] [address] Dr. Andrea Mccarthy VLDL CALC 17.6 mg/dL Normal [facility] Comment on above: Performed By: #### L IPID, TSH, T7, CMP #### [facility] [address] [place] [address] Dr. Andrea Mccarthy MAGNESIUMon 11-14-2021 Magnesium [Mass/Vol] 2.2 mg/dL Normal 1.8-2.4 [facility] Comment on above: Performed By: #### U KIM, MG, PHOS #### [facility] [address] [place] [address] Dr. Andrea Mccarthy PHOSPHORUSon 11-14-2021 Phosphate [Mass/Vol] 3.0 mg/dL Normal 2.6-4.7 [facility] Comment on above: Performed By: #### U KIM, MG, PHOS #### [facility] [address] [place] [address] Dr. Andrea Mccarthy PROF 14(COMP METB)on 022 Albumin [Mass/Vol] 3.2 g/dL Critically low 3.4-5.0 [facility] Comment on above: Performed By: #### L IPID, TSH, T7, CMP #### [facility] [address] [place] [address] Dr. Andrea Mccarthy Albumin/Globulin [Mass ratio] 0.8 {ratio} Normal [facility] Comment on above: Performed By: #### L IPID, TSH, T7, CMP #### [facility] [address] [place] [address] Dr. Andrea Mccarthy ALP [Catalytic activity/Vol] 51 U/L Normal 46-116 [facility] Comment on above: Performed By: #### L IPID, TSH, T7, CMP #### [facility] [address] [address] [address] Andrea Mccarthy ALT [Catalytic activity/Vol] 13 U/L Critically low 14-59 [facility] Comment on above: Performed By: #### L IPID, TSH, T7, CMP #### [facility] [address] [place] [address] Dr. Andrea Mccarthy Anion gap [Moles/Vol] 11.4 mmol/L Normal [facility] Comment on above: Performed By: #### L IPID, TSH, T7, CMP #### [facility] [address] [place] [address] Dr. Andrea Mccarthy AST [Catalytic activity/Vol] 9 U/L Critically low 15-37 [facility] Comment on above: Performed By: #### L IPID, TSH, T7, CMP #### [facility] [address] [place] [address] Dr. Andrea Mccarthy Bilirubin [Mass/Vol] 0.3 mg/dL Normal 0.2-1.0 [facility] Comment on above: Performed By: #### L IPID, TSH, T7, CMP #### [facility] [address] [place] [address] Dr. Andrea Mccarthy Calcium [Mass/Vol] 8.4 mg/dL Critically low 8.5-10.1 [facility] Comment on above: Performed By: #### L IPID, TSH, T7, CMP #### [facility] [address] [address] [address] Andrea Mccarthy Chloride [Moles/Vol] 105 mmol/L Normal 98-107 [facility] Comment on above: Performed By: #### L IPID, TSH, T7, CMP #### [facility] [address] [address] [address] Andrea Mccarthy CO2 [Moles/Vol] 27.7 mmol/L Normal 21.0-32.0 [facility] Comment on above: Performed By: #### L IPID, TSH, T7, CMP #### [facility] [address] [address] [address] Andrea Mccarthy Creatinine [Mass/Vol] 1.31 mg/dL Critically high 0.55-1.02 [facility] Comment on above: Performed By: #### L IPID, TSH, T7, CMP #### [facility] [address] [place] [address] Dr. Andrea Mccarthy EGFR-AF FINNISH 49 mL/min/1.73m2 Critically low >=60 [facility] Comment on above: Performed By: #### L IPID, TSH, T7, CMP #### [facility] [address] [place] [address] Dr. Andrea Mccarthy EGFR-NON AF FINNISH 40 mL/min/1.73m2 Critically low >=60 [facility] Comment on above: Performed By: #### L IPID, TSH, T7, CMP #### [facility] [address] [place] [address] Dr. Andrea Mccarthy Globulin (S) [Mass/Vol] 3.9 g/dL Normal [facility] Comment on above: Performed By: #### L IPID, TSH, T7, CMP #### [facility] [address] [place] [address] Dr. Andrea Mccarthy Glucose [Mass/Vol] 97 mg/dL Normal 74-106 [facility] Comment on above: Performed By: #### L IPID, TSH, T7, CMP #### [facility] [address] [place] [address] Dr. Andrea Mccarthy Potassium [Moles/Vol] 4.1 mmol/L Normal 3.5-5.1 [facility] Comment on above: Performed By: #### L IPID, TSH, T7, CMP #### [facility] [address] [place] [address] Dr. Andrea Mccarthy Protein [Mass/Vol] 7.1 g/dL Normal 6.4-8.2 [facility] Comment on above: Performed By: #### L IPID, TSH, T7, CMP #### [facility] [address] [place] [address] Dr. Andrea Mccarthy Sodium [Moles/Vol] 140 mmol/L Normal 136-145 [facility] Comment on above: Performed By: #### L IPID, TSH, T7, CMP #### [facility] [address] [address] [address] Andrea Mccarthy Urea nitrogen [Mass/Vol] 23.0 mg/dL Critically high 7.0-18.0 [facility] Comment on above: Performed By: #### L IPID, TSH, T7, CMP #### [facility] [address] [place] [address] Dr. Andrea Mccarthy Urea nitrogen/Creatinine [Mass ratio] 17.6 mg/mg Normal [facility] Comment on above: Performed By: #### L IPID, TSH, T7, CMP #### [facility] [address] [place] [address] Dr. Andrea Mccarthy TSHon 11-14-2021 TSH 0.032 uIU/mL Critically low 0.358-3.740 [facility] Comment on above: Performed By: #### U KIM, MG, PHOS #### [facility] [address] [place] [address] Dr. Andrea Mccarthy UA RANDOM W/MICROSCOPICon BACTERIA NONE SEEN Normal NONE SEEN [facility] Comment on above: Performed By: #### U KIM, MG, PHOS #### [facility] [address] [place] [address] Dr. Andrea Mccarthy Bilirubin Ql (U) Negative Normal NEGATIVE [facility] Comment on above: Performed By: #### U KIM, MG, PHOS #### [facility] [address] [place] [address] Dr. Andrea Mccarthy CAST NONE SEEN Normal NONE SEEN [facility] Comment on above: Performed By: #### U KIM, MG, PHOS #### [facility] [address] [place] [address] Dr. Andrea Mccarthy Clarity (U) CLEAR Normal CLEAR [facility] Comment on above: Performed By: #### U KIM, MG, PHOS #### [facility] [address] [place] [address] Dr. Andrea Mccarthy Color (U) YELLOW Normal YELLOW [facility] Comment on above: Performed By: #### U KIM, MG, PHOS #### [facility] [address] [address] [address] Andrea Mccarthy Crystals LM Nom (Urine sed) NONE SEEN Normal NONE SEEN [facility] Comment on above: Performed By: #### U KIM, MG, PHOS #### [facility] [address] [address] [address] Andrea Mccarthy Epithelial cells LM Ql (Urine sed) FEW Abnormal NONE SEEN /RARE [facility] Comment on above: Performed By: #### U KIM, MG, PHOS #### [facility] [address] [address] [address] Andrea Mccarthy Glucose Ql (U) Negative Normal NEGATIVE [facility] Comment on above: Performed By: #### U KIM, MG, PHOS #### [facility] [address] [place] [address] Dr. Andrea Mccarthy Hemoglobin Ql (U) TRACE-INTACT Abnormal NEGATIVE [facility] Comment on above: Performed By: #### U KIM, MG, PHOS #### [facility] [address] [place] [address] Dr. Andrea Mccarthy Ketones Ql (U) Negative Normal NEGATIVE [facility] Comment on above: Performed By: #### U KIM, MG, PHOS #### [facility] [address] [place] [address] Dr. Andrea Mccarthy LEUKOCYTES Negative Normal NEGATIVE [facility] Comment on above: Performed By: #### U KIM, MG, PHOS #### [facility] [address] [address] [address] Andrea Mccarthy MUCOUS SMALL Abnormal NONE SEEN [facility] Comment on above: Performed By: #### U KIM, MG, PHOS #### [facility] [address] [place] [address] Dr. Andrea Mccarthy Nitrite Ql (U) Negative Normal NEGATIVE [facility] Comment on above: Performed By: #### U KIM, MG, PHOS #### [facility] [address] [address] [address] Andrea Mccarthy pH (U) 5.5 [pH] Normal 5-9 [facility] Comment on above: Performed By: #### U KIM, MG, PHOS #### [facility] [address] [place] [address] Dr. Andrea Mccarthy RBC 0-2 Normal 0-2 [facility] Comment on above: Performed By: #### U KIM, MG, PHOS #### [facility] [address] [place] [address] Dr. Andrea Mccarthy SPEC GRAVITY 1.020 Normal 1.005-<=1.025 [facility] Comment on above: Performed By: #### U KIM, MG, PHOS #### [facility] [address] [place] [address] Dr. Andrea Mccarthy UA PROTEIN Negative Normal NEGATIVE/ TRACE [facility] Comment on above: Performed By: #### U KIM, MG, PHOS #### [facility] [address] [place] [address] Dr. Andrea Mccarthy Urobilinogen Qn (U) 0.2 {Mikel'U}/dL Normal 0.2 - 1. 0 [facility] Comment on above: Performed By: #### U KIM, MG, PHOS #### [facility] [address] [place] [address] Dr. Andrea Mccarthy WBC NONE SEEN Normal NONE SEEN [facility] Comment on above: Performed By: #### U KIM, MG, PHOS #### [facility] [address] [place] [address] Dr. Andrea Mccarthy URIC ACID SERUMon 11-14-2021 Urate [Mass/Vol] 5.0 mg/dL Normal 2.6-6.0 [facility] Comment on above: Performed By: #### U KIM, MG, PHOS #### [facility] [address] [place] [address] Dr. Andrea Mccarthy URINE T PROTEIN CREAT RATIOo n 11-14-2021 Protein (U) [Mass/Vol] 22.3 mg/dL Critically high <=12.0 [facility] Comment on above: Performed By: #### U KIM, MG, PHOS #### [facility] [address] [address] [address] Andrea Mccarthy UR PROT CREAT RAT 0.15 Normal [facility] Comment on above: Performed By: #### U KIM, MG, PHOS #### [facility] [address] [address] [address] Andrea Mccarthy URINE CREAT 151.50 mg/dL Normal 20.00-300.00 [facility] Comment on above: Performed By: #### U KIM, MG, PHOS #### [facility] [address] [address] [address] Andrea Mccarthy Vital Signs Date Time Vital Sign Value Performing Clinician Facility 07-17-2024 17:52-0400 Body height 162.56 cm [facility] 07-17-2024 17:52-0400 Body mass index (BMI) [Ratio] 30.5 kg/m2 [facility] 07-17-2024 17:52-0400 Body temperature 97.8 [degF] [facility] 07-17-2024 17:52-0400 Body weight 80.79 kg [facility] 07-17-2024 17:52-0400 Diastolic blood pressure 87 mm[Hg] [facility] 07-17-2024 17:52-0400 Heart rate 104 /min [facility] 07-17-2024 17:52-0400 Respiratory rate 18 /min [facility] 07-17-2024 17:52-0400 SaO2% (BldA) [Mass fraction] 94 % [facility] 07-17-2024 17:52-0400 Systolic blood pressure 130 mm[Hg] [facility] 06-29-2024 13:34-0400 Body height 162.56 cm [facility] 06-29-2024 13:34-0400 Body mass index (BMI) [Ratio] 30.2 kg/m2 [facility] 06-29-2024 13:34-0400 Body temperature 97.6 [degF] [facility] 06-29-2024 13:34-0400 Body weight 80.05 kg [facility] 06-29-2024 13:34-0400 Diastolic blood pressure 79 mm[Hg] [facility] 06-29-2024 13:34-0400 Heart rate 68 /min [facility] 06-29-2024 13:34-0400 Respiratory rate 19 /min [facility] 06-29-2024 13:34-0400 SaO2% (BldA) [Mass fraction] 97 % [facility] 06-29-2024 13:34-0400 Systolic blood pressure 141 mm[Hg] [facility] 05-12-2024 10:59-0500 Body height 162.56 cm [facility] 05-12-2024 10:59-0500 Body mass index (BMI) [Ratio] 30.2 kg/m2 [facility] 05-12-2024 10:59-0500 Body weight 80 kg [facility] 05-12-2024 10:59-0500 Diastolic blood pressure 80 mm[Hg] [facility] 05-12-2024 10:59-0500 Heart rate 87 /min [facility] 05-12-2024 10:59-0500 Respiratory rate 16 /min [facility] 05-12-2024 10:59-0500 SaO2% (BldA) [Mass fraction] 96 % [facility] 05-12-2024 10:59-0500 Systolic blood pressure 117 mm[Hg] [facility] 05-03-2024 09:59-0500 Body height 162.56 cm [facility] 05-03-2024 09:59-0500 Body mass index (BMI) [Ratio] 30 kg/m2 [facility] 05-03-2024 09:59-0500 Body temperature 97.3 [degF] [facility] 05-03-2024 09:59-0500 Body weight 79.49 kg [facility] 05-03-2024 09:59-0500 Diastolic blood pressure 82 mm[Hg] [facility] 05-03-2024 09:59-0500 Heart rate 110 /min [facility] 05-03-2024 09:59-0500 Respiratory rate 16 /min [facility] 05-03-2024 09:59-0500 SaO2% (BldA) [Mass fraction] 95 % [facility] 05-03-2024 09:59-0500 Systolic blood pressure 121 mm[Hg] [facility] 11-11-2023 12:58-0400 Body height 162.56 cm [facility] 11-11-2023 12:58-0400 Body mass index (BMI) [Ratio] 30 kg/m2 [facility] 11-11-2023 12:58-0400 Body weight 79.37 kg [facility] 11-11-2023 12:58-0400 Diastolic blood pressure 88 mm[Hg] [facility] 11-11-2023 12:58-0400 Systolic blood pressure 136 mm[Hg] [facility] 10-19-2023 12:21-0400 Body height 162.56 cm [facility] 10-19-2023 12:21-0400 Body mass index (BMI) [Ratio] 30.4 kg/m2 [facility] 10-19-2023 12:21-0400 Body temperature 98.3 [degF] [facility] 10-19-2023 12:21-0400 Body weight 80.39 kg [facility] 10-19-2023 12:21-0400 Heart rate 82 /min [facility] 10-19-2023 12:21-0400 Respiratory rate 16 /min [facility] 10-19-2023 12:21-0400 SaO2% (BldA) [Mass fraction] 96 % [facility] 05-21-2023 10:40-0500 Body height 162.56 cm Audie Dionne Other [facility] Other 05-21-2023 10:40-0500 Body mass index (BMI) [Ratio] 29.59 kg/m2 Audie Dionne Other [facility] Other 05-21-2023 10:40-0500 Body temperature 96.3 [degF] Audie Dionne Other [facility] Other 05-21-2023 10:40-0500 Body weight 78.2 kg Audie Dionne Other [facility] Other 05-21-2023 10:40-0500 Diastolic blood pressure 80 mm[Hg] Audie Dionne Other [facility] Other 05-21-2023 10:40-0500 Respiratory rate 18 /min Audie Dionne Other [facility] Other 05-21-2023 10:40-0500 SaO2% (BldA) [Mass fraction] 98 % Audie Dionne Other [facility] Other 05-21-2023 10:40-0500 Systolic blood pressure 118 mm[Hg] Audie Dionne Other [facility] Other 11-19-2022 11:00-0400 Body height 162.56 cm Audie Dionne Other [facility] Other 11-19-2022 11:00-0400 Body mass index (BMI) [Ratio] 28.9 kg/m2 Audie Dionne Other [facility] Other 11-19-2022 11:00-0400 Body temperature 96 [degF] Audie Dionne Other [facility] Other 11-19-2022 11:00-0400 Body weight 76.39 kg Audie Dionne Other [facility] Other 11-19-2022 11:00-0400 Diastolic blood pressure 81 mm[Hg] Audie Dionne Other [facility] Other 11-19-2022 11:00-0400 Respiratory rate 18 /min Audie Dionne Other [facility] Other 11-19-2022 11:00-0400 SaO2% (BldA) [Mass fraction] 98 % Audie Dionne Other [facility] Other 11-19-2022 11:00-0400 Systolic blood pressure 132 mm[Hg] Audie Dionne Other [facility] Other 07-02-2022 14:17-0400 Blood Pressure Location Iván TOMLIN [facility] 07-02-2022 14:17-0400 Diastolic blood pressure 88 mm[Hg] Iv[facility] 07-02-2022 14:17-0400 Heart rate 71 /min Iván TOM[facility] 07-02-2022 14:17-0400 Systolic blood pressure 128 mm[Hg] Iván TOMLIN [facility] 05-29-2022 10:40-0500 Body height 162.56 cm Audie Dionne Other [facility] Other 05-29-2022 10:40-0500 Body mass index (BMI) [Ratio] 28.22 kg/m2 Audie Dionne Other [facility] Other 05-29-2022 10:40-0500 Body temperature 96.3 [degF] Audie Dionne Other [facility] Other 05-29-2022 10:40-0500 Body weight 74.57 kg Audie Dionne Other [facility] Other 05-29-2022 10:40-0500 Diastolic blood pressure 81 mm[Hg] Audie Dionne Other [facility] Other 05-29-2022 10:40-0500 Respiratory rate 18 /min Audie Dionne Other [facility] Other 05-29-2022 10:40-0500 SaO2% (BldA) [Mass fraction] 98 % Audie Dionne Other [facility] Other 05-29-2022 10:40-0500 Systolic blood pressure 125 mm[Hg] Audie Dionne Other [facility] Other 11-21-2021 12:40-0400 Body height 162.56 cm Audie Dionne Other [facility] Other 11-21-2021 12:40-0400 Body mass index (BMI) [Ratio] 28.22 kg/m2 Audie Dionne Other [facility] Other 11-21-2021 12:40-0400 Body temperature 96.8 [degF] Audie Dionne Other [facility] Other 11-21-2021 12:40-0400 Body weight 74.57 kg Audie Dionne Other [facility] Other 11-21-2021 12:40-0400 Diastolic blood pressure 79 mm[Hg] Audie Dionne Other [facility] Other 11-21-2021 12:40-0400 Respiratory rate 18 /min Audie Dionne Other [facility] Other 11-21-2021 12:40-0400 SaO2% (BldA) [Mass fraction] 98 % Audie Dionne Other [facility] Other 11-21-2021 12:40-0400 Systolic blood pressure 117 mm[Hg] Audie Dionne Other [facility] Other 06-01-2021 16:20-0500 Body height 162.56 cm Audie Dionne Other [facility] Other 06-01-2021 16:20-0500 Body mass index (BMI) [Ratio] 30.89 kg/m2 Audie Dionne Other [facility] Other 06-01-2021 16:20-0500 Body temperature 96.5 [degF] Audie Dionne Other [facility] Other 06-01-2021 16:20-0500 Body weight 81.65 kg Audie Dionne Other [facility] Other 06-01-2021 16:20-0500 Diastolic blood pressure 80 mm[Hg] Audie Dionne Other [facility] Other 06-01-2021 16:20-0500 Respiratory rate 18 /min Audie Dionne Other [facility] Other 06-01-2021 16:20-0500 SaO2% (BldA) [Mass fraction] 98 % Audie Dionne Other [facility] Other 06-01-2021 16:20-0500 Systolic blood pressure 119 mm[Hg] Audie Dionne Other [facility] Other 03-27-2021 16:20-0500 Body height 162.56 cm Audie Dionne Other [facility] Other 03-27-2021 16:20-0500 Body mass index (BMI) [Ratio] 31.55 kg/m2 Audie Dionne Other [facility] Other 03-27-2021 16:20-0500 Body temperature 96.5 [degF] Audie Dionne Other [facility] Other 03-27-2021 16:20-0500 Body weight 83.37 kg Audie Dionne Other [facility] Other 03-27-2021 16:20-0500 Diastolic blood pressure 80 mm[Hg] Audie Dionne Other [facility] Other 03-27-2021 16:20-0500 Respiratory rate 18 /min [facility]ie Dionne Other [facility] Other 03-27-2021 16:20-0500 SaO2% (BldA) [Mass fraction] 99 % Audie Dionne Other [facility] Other 03-27-2021 16:20-0500 Systolic blood pressure 119 mm[Hg] Audie Dionne Other [facility] [employer] Other Encounters Encounter Date Encounter Type Care Provider Facility Start: 07-17-2024 End: 07-17-2024 ambulatory [facility] Work Phone: Start: 07-17-2024 End: 07-17-2024 Patient encounter procedure [facility] Work Phone: Start: 06-29-2024 End: 06-29-2024 ambulatory [facility] Work Phone: Start: 06-29-2024 End: 06-29-2024 Patient encounter procedure [facility] Phys[facility] Work Phone: Start: 05-12-2024 End: 05-12-2024 ambulatory [facility] Work Phone: Start: 05-12-2024 End: 05-12-2024 Patient encounter procedure [facility] Physician [facility] Work Phone: Start: 05-05-2024 Non-patient / Non-visit [facility] Physician [facility] Work Phone: Start: 05-03-2024 End: 05-03-2024 ambulatory [facility] Work Phone: Start: 05-03-2024 End: 05-03-2024 Patient encounter procedure [facility] Phys[facility] Work Phone: Start: 11-11-2023 End: 11-11-2023 ambulatory [facility] Work Phone: Start: 11-11-2023 End: 11-11-2023 Patient encounter procedure [facility] Work Phone: Start: 11-07-2023 Non-patient / Non-visit [facility] Work Phone: Start: 10-19-2023 End: 10-19-2023 ambulatory [facility] Work Phone: Start: 10-19-2023 End: 10-19-2023 Patient encounter procedure [facility] Work Phone: Start: 05-21-2023 End: 05-21-2023 ambulatory Audie Dionne Other [facility] Other Start: 05-21-2023 Office outpatient vi sit 25 minutes Audie Dionne [facility] Start: 11-19-2022 End: 11-19-2022 ambulatory Audie Dionne Other [facility] Other Start: 11-19-2022 Office outpatient vi sit 15 minutes Audie Dionne [facility] Start: 09-06-2022 ambulatory YARITZA LOPEZ Facility: Start: 07-17-2022 End: 07-18-2022 ambulatory Iván TOMLIN Facility:[facility] Start: 07-17-2022 End: 07-17-2022 Patient encounter procedure Iván TOMLIN [facility] Start: 07-07-2022 End: 07-08-[address] IVÁN TOMLIN . Facility: Start: 07-02-2022 End: 07-03-2022 ambulatory MD AUDIE TRUONG Facility:[facility] Start: 07-02-2022 End: 07-02-2022 Patient encounter procedure Iván TOMILN [facility] [place] Start: 05-31-2022 ambulatory MD AUDIE TRUONG Facility :[facility] [place] Start: 05-29-2022 End: 05-29-2022 ambulatory Audie Dionne Other [facility] Other Start: 05-29-2022 Office outpatient vi sit 25 minutes Audie Dionne [facility] Start: 05-21-2022 End: 05-22-2022 ambulatory YARITZA LOPEZ Facility:[facility] Start: 12-30-2021 End: 12-31-2021 ambulatory YARITZA LOPEZ Facility:[facility] Start: 11-21-2021 End: 11-21-2021 ambulatory Audie Dionne Other [facility] Other Start: 11-21-2021 Office outpatient vi sit 25 minutes Audie Dionne [facility] Start: 11-14-2021 End: 11-15-2021 ambulatory AUDIE DIONNE Facility:[facility] Start: 06-02-2021 End: 06-02-2021 ambulatory Audie Dionne Other [facility] Other Start: 06-02-2021 Telephone encounter Audie Dionne [facility] Start: 06-01-2021 End: 06-01-2021 ambulatory Audie Dionne Other [facility] Other Start: 06-01-2021 Office outpatient vi sit 25 minutes Audie Dionne [facility] Start: 03-27-2021 End: 03-27-2021 ambulatory Auide Dionne Other [facility] Other Start: 03-27-2021 Office outpatient ne w 45 minutes Audie Dionne [facility] Procedures Date Procedure Procedure Detail Performing Clinician Start: 01-08-2019 Esophagogastroduodenoscopy Iván TOMLIN Abdominal hysterectomy Clarence TOMLIN Appendectomy Iván TOMLIN Colonoscopy Iván TOMLIN Plan of Treatment Date Care Activity Detail Author Renal function 1999 panel - Serum or Plasma [facility] enter Renal function 1999 panel - Serum or Plasma [facility] enter [facility] Payers Date Payer Category Payer Private Health Insurance [id number] 1950 Unknown [id number] 2.16.8 [id number] 1950 Unknown [id number] 2.16.8 [id number] 1950 Unknown [id number] 2.16.84 [id number] 1950 Unknown [id number] 2.16.84 [id number] 1950 Unknown [id number] 2.16.84 [id number] 1950 Unknown [id number] 2.16.84 [id number] 1950 Unknown [id number] 2.16.84 [id number] 1950 Unknown [id number] 2.16.84 [id number] Self-pay Self Pay [id number] Unknown [id number] Social History Date Type Detail Facility [facility] smoked [facility] Start: 1950 Sex Assigned At Female F [facility] Sex Assigned At [facility] Start: 07-02-2022 End: 10-19-2023 Tobacco smoking status Never smoked tobacco (finding) [facility] Tobacco smoking status Never [facility] Start: 05-03-2024 End: 07-17-2024 Sex Female (finding) [facility] Goals Date Patient Goal Desired Activity /State Functional Status Date Assessment Result Facility 07-02-2022 Functional Status N/A [facility] Clinical Notes 03-27-2021 to 05-03-2024 Note Date & Type Note Facility 05-03-2024 Evaluation note Diagnosis Onset Date Resolution Maxillary sinusitis, acute acute May 03, 2024 9:55am Anemia of renal disease acute J an2024 10:48am CKD (chronic kidney disease) stage 3, GFR 30-59 ml/min acute May 12, 2024 10:48am Hyperlipidemia acute May 122024 10:48am Hypertensive chronic kidney disease with stage 1 through stage 4 chronic ki acute 2024 10:48am Hypomagnesemia acute May 122024 10:48am Microscopic hematuria acute Apr 10:48am Secondary hyperparathyroidism acute April 10:48am [facility] Work Phone: 1(626) 174-840101-12-2025 Evaluation note* Diagnosis Onset Date Resolution Status Admit Date Maxillary sinusitis, acute acute May 03, 2024 9:55am Anemia of renal disease acute J an2024 10:48am CKD (chronic kidney disease) stage 3, GFR 30-59 ml/min acute April 10:48am Hyperlipidemia acute May 122024 10:48am Hypertensive chronic kidney disease with stage 1 through stage 4 chronic ki acute May 12 10:48am Hypomagnesemia acute May 122024 10:48am Microscopic hematuria acute Apr 10:48am Secondary hyperparathyroidism acute May 12, 2024 10:48am Viral URI acute June 29 1:17pm [facility] Work Phone: 1(748) 110-796201-30-2024 Evaluation note* Encounter Date Diagnosis Assessment Notes Treatment Notes Treatment Clinical Notes Apr, Chronic kidney disea se, stage 3b (ICD-10 [...] stain. Monitor LFTs and lipid profile periodically. [facility] Other 07-31-2023 Evaluation note* Encounter Date Diagnosis [...] advised to have repeat in 5 yrs [facility] Other 03-28-2023 Note [id number]:127[facility] 07-17-2022 Hospital Discharge instructions Patient Education [...] With:Iván TOMLIN Address: [facility] [address] [place] [address] Business (1) When: Unknown Comments:Call for any problems. [facility]03-28-2023 NoteCustom Cystoscopy ? Voiding after the [...] have a fever over 100 degrees.[facility] 07-02-2022 NoteChief Complaint Pt here for [...] [facility] [address], [place] [address]- Additional Instructions: schedule cysto, CHRIS Patient Education [...] tab(s), Oral, q6hr fluticasone 0.05 mg/inh Nasal [place], 2 spray(s), Nasal, Daily (more content not included)...[facility]Result Comment: Electronically Signed By: Iván TOMLIN MD\.br\Date and Time Signed: 07/02/22 14:52 EDT\.br\Electronically Co-Signed By: Moira Estrada\.br\Date and Time Co-Signed: 07/02/22 14:50 [id number] Hospital Discharge instructions Patient Education 07/02/2022 14:22:27 [...] Follow these instructions at home: Medicines Take siyd-dzr-ijnpcty and prescription medicines only as told by [...] or the blood stops without treatment. Take hdac-dou-zqmeifc and prescription medicines only as told by your health care provider. Drink enough fluid to keep your urine clear or pale yellow. This information is not intended to replace advice given to you by your health care provider. Make sure you discuss any questions you have with your health care provider. Document Released: 04/08/2006 Document Revised: 09/02/2019 Document Reviewed: 05/11/2017 [employer] Patient Education 2019 [employer]. Follow Up Care 05/31/2022 13:31:32 With:KELLY BLACKMON, Iván Hsu, URL Address: [facility] [address] , [place] [address]- When: Unknown [facility] Evaluation note* Encounter Date Diagnosis Assessment [...] advised to have repeat in 5 yrs [facility] Other 08-02-2022 Evaluation note* Encounter Date Diagnosis [...] stain. Monitor LFTs and lipid profile periodically. [facility] Other 02-10-2022 Evaluation note* Encounter Date Diagnosis [...] stain. Monitor LFTs and lipid profile periodically. [facility] Other 12-06-2021 Evaluation note* Encounter Date Diagnosis [...] Hospital. Monitor LFTs and lipid profile periodically. [facility] Other Evaluation + Plan note Future Appointments Appointment Date:07/10/2022 11:30:00 AM Scheduled Provider: Location:[facility] Appointment Type:Urology CALL PAT FT Appointment Date:07/17/2022 08:45:00 AM Scheduled Provider: Location:[facility] Appointment Type:Urology FT Diagnostic Tests Pending * Urine Cytology ([facility]) 07/02/22 [facility] evaluation noteNo Assessments Information Available [facility] note[facility] InformationNort [employer] Other Evaluation noteNo assessment information available [facility] Work Phone: Evaluation note* Diagnosis Onset Date Resolution Status Maxillary sinusitis, acute a cute Anemia of renal disease acut e CKD (chronic kidney disease) stage 3, GFR 30-59 ml/min acute Hyperlipidemia acute [id number] acute Hypomagnesemia acute Secondary hyperparathyroidism acute [facility] Work Phone: Hisxbea general Narrative - Reported* Type Description Date Medical History HTN Medical History Hypothyroidism Medical History hyperlipidemia Medical History acid reflux Medical History anxiety Medical History PRE DIABETIC Medical History mixed hypercholestolemia Medical History CKD STAGE 3 Medical History INSOMNIA Surgical History hysterectomy, total with BSO Surgical History fallopian tube removed Hospitalization History see above hx Hospitalization History N&V [facility] Other Hisnfuo general Narrative - Reported* Type Description Date [...] History see above hx Hospitalization History N&V [facility] Other Hospital course Narrative No data available for this section [facility] progress note No data available for this section [facility] Summary Purpose Family History Relationship Condition Age [...] disease) stage 3, GFR 30-59 ml/min Hyperlipidemia [id number] Hypomagnesemia Secondary hyperparathyroidism Chief Complaint Admit Date sinus congestion, cough May 03 9:55am Chief Complaint Admit Date sinus congestion, cough May 03 9:55am RENAL 6 MONTH F/U May 12, 2024 1 0:48am Reason for Visit Admit Date Maxillary sinusitis, acute May 03, 2024 9:55am Anemia of renal disease May 12 10:48am CKD (chronic kidney disease) stage 3, GF R 30-59 ml/min May 12, 2024 10:48am Hyperlipidemia May 12, 2024 1 0:48am Hypertensive chronic kidney disease with stage 1 through stage 4 chronic ki May 12, 2024 10:48am Hypomagnesemia May 12, 2024 1 0:48am Microscopic hematuria May 12, 2024 10:48am Secondary hyperparathyroidism May 122024 10:48am Chief Complaint Admit Date sinus congestion, cough May 03 9:55am RENAL 6 MONTH F/U May 12, 2024 1 0:48am Sinus congestion June 29, 2024 1:1 7pm Chief Complaint Admit Date sinus congestion, cough May 03 9:55am RENAL 6 MONTH F/U May 12, 2024 1 0:48am Sinus congestion June 29, 2024 1:1 7pm Painful rash on face, right earache Feliciano h 2024 5:45pm Reason for Visit Admit Date Maxillary sinusitis, acute May 03, 2024 9:55am Anemia of renal disease May 12 10:48am CKD (chronic kidney disease) stage 3, GF R 30-59 ml/min May 12, 2024 10:48am Hyperlipidemia May 12, 2024 1 0:48am Hypertensive chronic kidney disease with stage 1 through stage 4 chronic ki May 12, 2024 10:48am Hypomagnesemia May 12, 2024 1 0:48am Microscopic hematuria May 12, 2024 10:48am Secondary hyperparathyroidism May 122024 10:48am Viral URI June 29, 2024 1:1 7pm Additional Source Comments REASON FOR VISIT (unrecogniz ed section and content) RENAL CKD 3CKD and hyperpara thyroidismNo InformationCKD and HTNCKD and HTNCKD and HTNCKD and HTN Patient Care team informatio n (unrecognized section and content) Team Status: Active Member Role Status Dates Yaritza Lopez NP-C Primary Care Provider Active Team Status: Inactive Member Role Status Dates Yaritza Lopez NP-Greta Primary Care Provider Active Start: October 19, [...] LILIANA Guevara Primary Care Provider Active Start: May 03, 2024 End: May 03, 2024 Ella Monsalve APRN Attending Provider Active S tart: May 03, 2024 End: May 03, 2024 Team Status: Active Member Role Status Dates Yaritza Lopez SOFTWARE ENGINEER INTERN-C Primary Care Provider Active Start: May 05, 2024 Audie Truong MD Attending Provider Active Start : May 05, 2024 Team Status: Inactive Member Role Status Dates Yaritza Lopez NP-C Primary Care Provider Active Start: May 12, 2024 End: May 12, 2024 Audie Truong MD Attending Provider Active Start : May 12, 2024 End: May 12, 2024 Team Status: Inactive Member Role Status Dates Yaritza Lopez SOFTWARE ENGINEER INTERN-C Primary Care Provider Active Start: June 29, 2024 End: June 29, 2024 Marianne Ragsdale APRN Attending Provider Active Start: June 29, 2024 End: June 29, 2024 Team Status: Inactive Member Role Status Dates Yaritza Lopez SOFTWARE ENGINEER INTERN-C Primary Care Provider Active Start: July 17, 2024 End: July 17, 2024 Juani Gagnon APRN Attending Provider Active Start: July 17, 2024 End: July 17, 2024 INFORMATION SOURCE (unrecogn ized section and content) DATE CREATED AUTHOR 07/24/2022 [facility] DATE CREATED AUTHOR AUTHOR'S MAURICE ATDESI 09/05/2022 [facility] Goals (unrecognized section and content) [...] BE BASED ON THE PRIMARY CLINICAL RECORDS. [facility] [employer] provides no warranty or guarantee of the accuracy or completeness of information in this document.
[2024-09-07 09:09] LABS: Estimated Average Glucose 134 mg/dL; Glycohemoglobin A1C 6.3 % (4.5-6.2)
[2024-09-07 09:10] LABS: Basophils Absolute Auto 0.1 10^3/uL (0.0-0.1); Basophils Percent Auto 0.9 % (0.2-2.0); Eosinophils Absolute Auto 0.2 10^3/uL (0.0-0.7); Eosinophils Percent Auto 2.5 % (0.9-7.0); Hematocrit 39.3 % (36.0-48.0); Hemoglobin 12.5 g/dL (12.0-16.0); Immature Granulocytes Abs Auto 0.03 10^3/uL (0.00-0.03); Immature Granulocytes Pct Auto 0.4 % (0.0-0.5); Lymphocytes Percent Auto 24.9 % (20.5-60.0); Mean Corpuscular HGB Conc 31.8 g/dL (29.9-35.2); Mean Corpuscular Volume 88.1 fL (81.0-99.0); Mean Platelet Volume 12.6 fL (9.5-13.5); Monocytes Absolute Auto 0.6 10^3/uL (0.3-0.8); Monocytes Percent Auto 7.5 % (1.7-12.0); Neutrophils Absolute Auto 5.2 10^3/uL (1.4-6.5); Neutrophils Percent Auto 63.8 % (43.0-75.0); Platelet Count 142 10^3/uL (150-450); Red Blood Count 4.46 10^6/uL (4.20-5.40); Red Cell Distribution Width 14.8 % (11.0-15.0); White Blood Count 8.1 10^3/uL (4.0-11.0)
[2024-09-07 10:16] LABS: Alanine Aminotransferase 17 U/L (14-59); Albumin Globulin Ratio 0.6; Albumin Level 2.9 g/dL (3.4-5.0); Alkaline Phosphatase 64 U/L (46-116); Aspartate Amino Transferase 14 U/L (15-37); Bilirubin Total 0.3 mg/dL (0.2-1.0); Calcium 8.6 mg/dL (8.5-10.1); Chloride 104 mmol/L (98-107); Chol HDL Ratio 3.7; Cholesterol 191 mg/dL (<=200); Estimated GFR (African America 42 (>=60 mL/min/1.73m^2); Estimated GFR (Non-African Ame 35 (>=60 mL/min/1.73m^2); Free T3 2.38 pg/mL (2.18-3.98); Globulin 4.8 g/dL; Glucose 104 mg/dL (74-106); HDL Cholesterol 52 mg/dL (40-60); Sodium 140 mmol/L (136-145); Thyroid Stimulating Hormone 0.618 uIU/mL (0.358-3.740); Total Protein 7.7 g/dL (6.4-8.2); Triglycerides 212 mg/dL (<=150); VLDL CHOLESTEROL 42.4 mg/dL
[2024-09-08 07:08] LABS: Insulin 23.6 uIU/mL (2.6-24.9)
== END 2024-09-07 08:31 | disposition home or self-care (01) ==
LOC: LAB 08:32
PROVIDERS: PCP Nurse Practitioner Family; Visit Provider Nurse Practitioner Family
DX: R73.09 Other abnormal glucose (principal); E03.9 Hypothyroidism, unspecified; E55.9 Vitamin D deficiency, unspecified
CPT/HCPCS: 36415; 80053; 80061; 82306; 83036; 83525; 83540; 84436; 84443; 84481; 85025

== ENCOUNTER 2024-09-29 09:43 | Outpatient (OUT) | payer MEDICARE, SELFPAY ==
--- OUTSIDE RECORDS SUMMARY | 2024-09-29 09:49 | XMS_ITS | Clinical Summary ---
Author Organization [facility] Address [address] [place] [address] Care Team Providers Care Pickler Helper Name Role Phone Unavailable Primary Care Provider Unavailabl e Social History Tobacco Use Types Packs/Day Years Used Date Smoking Tobacco: Never Assessed Comments Unknown Sex and Gender Information Value Date Recorded Sex Assigned at Not on file Legal Sex Female 7:19 PM EDT Gender Identity Not on file Sexual Orientation Not on file Last Filed Vital Signs Vital Sign Reading Time Taken Comments Blood Pressure - - Pulse - - Temperature - - Respiratory Rate - - Oxygen Saturation - - Inhaled Oxygen Concentration - - Weight 83.9 kg (185 lb) 02/05/2022 12:00 PM EDT Height 165.1 cm (5' 5 ) 02/05/2022 12:00 PM EDT Body Mass Index 30.79 02/05/2022 12:00 PM EDT Plan of Treatment Not on file Insurance [facility] MEDICARE ADVANTAGE
--- OUTSIDE RECORDS SUMMARY | 2024-09-29 10:06 | XMS_ITS | CCD ---
Author Organization [facility] CliniSyky Care Team Providers Care Cat Skinner Name Role Phone Audie Truong Unavailable YARITZA [...] Medication Allergies] Propensity to adverse reactions (disorder) [facility] Repository Medications Current Medications Medication Drug Class(es) [...] 12, 2024 11:53am fluticasone 0.05 mg/inh Nasal [facility] (2 sources) Start: 01-01-2019 take 2 spray(s) nasal route once daily fluticasone 0.05 mg/inh Nasal [facility] 2 spray(s), Nasal, Daily, each nostril Start [...] Start: 01-01-2019 take 1 capsule by mo [facility] once daily levothyroxine 125 mcg (0.125 [...] 12:00am Start: 01-01-2019 take 1 tablet by [facility] once daily lovastatin 40 mg Tab [...] 12, 2024 1:00am take [address] [facility] every twenty-four hours MSM 500 MG 1 [...] 1:00am Start: 05-12-2024 take [address] [facility] once daily Multivitamin (Daily Multi-Vitamin) tablet Active [...] 19, 2023 12:00am take [address] [facility] every twenty-four hours Omeprazole 40 MG 1 [...] 19, 2023 12:00am take 1 tablet by [facility] every twenty-four hours Raloxifene HCl 60 [...] procedure, # 2 tab(s), Refills(s) 0, Pharmacy: [facility]/pharmacy #[id number], 162, cm, 07/02/22 14:24:00 EDT, [...] distribution width [Ratio] by Automated count 11.0-15.0 [facility] Estimated glomerular filtrat ion rate (GFR) non- Americanon 05-05-2024 GFR/1.73 sq M.predicted among non-blacks MDRD (S/P/Bld) [Vol rate/Area] Estimated glomerular filtration rate (GFR) non- Low >=60 mL/min/1.73m 2 [facility] Hematocrit Auto (Bld) [Volum e fraction]on 05-05-2024 Hematocrit (Bld) [Volume fraction] Hematocrit [Volume Fraction] of Blood by Automated count 36.0-48.0 [facility] Hemoglobin [Mass/volume] in Bloodon 05-05-2024 Hemoglobin (Bld) [Mass/Vol] Hemoglobin [Mass/volume] in Blood 12.0-16.0 [facility] Iron binding capacity [Mass/ volume] in Serum or Plasmaon 05-05-2024 Iron binding capacity [Mass/Vol] Iron binding capacity [Mass/volume] in Serum or Plasma Low 250.0-450.0 [facility] Iron saturation [Mass Fracti on] in Serum or Plasmaon 05-05-2024 Iron saturation [Mass fraction] Iron saturation [Mass Fraction] in Serum or Plasma [facility] Laboratory - Chemistry and C hemistry - challengeon 05-05-2024 Albumin [Mass/Vol] 3.1 g/dL Low 3.4-5.0 [facility] Calcium [Mass/Vol] 8.3 mg/dL Low 8.5-10.1 [facility] Chloride [Moles/Vol] 105 mmol/L 98-107 [facility] CO2 [Moles/Vol] 28.9 mmol/L 21.0-32.0 [facility] Creatinine [Mass/Vol] 1.47 mg/dL High 0.55-1.02 [facility] Ferritin [Mass/Vol] 93.0 ng/mL 8.0-252.0 [facility] GFR/1.73 sq M.predicted MDRD (S/P/Bld) [Vol rate/Area] 42 mL/min/{1.73_m2} Low >=60 mL/min/1.73m 2 [facility] Glucose [Mass/Vol] 104 mg/dL 74-106 [facility] Iron [Mass/Vol] 40.0 ug/dL Low 50.0-170.0 [facility] Magnesium [Mass/Vol] 2.0 mg/dL 1.8-2.4 [facility] Potassium [Moles/Vol] 4.0 mmol/L 3.5-5.1 [facility] Sodium [Moles/Vol] 143 mmol/L 136-145 [facility] Urate [Mass/Vol] 5.1 mg/dL 2.6-6.0 [facility] Urea nitrogen [Mass/Vol] 16.0 mg/dL 7.0-18.0 [facility] Urea nitrogen/Creatinine [Mass ratio] 10.9 mg/mg [facility] Bilirubin Ql (U) Negative NEGATIVE [facility] Glucose (U) [Mass/Vol] Negative NEGATIVE [facility] Ketones Ql (U) Negative NEGATIVE [facility] pH (U) 5.5 [pH] 5.0-9.0 [facility] Specific gravity (U) [Rel density] >=1.030 Abnormal 1.005-1.025 [facility] Urobilinogen Qn (U) 0.2 {Mikel'U}/dL 0.2-1.0 [facility] Laboratory - Specimen inform ationon 05-05-2024 Appearance (U) CLEAR CLEAR [facility] Color (U) YELLOW YELLOW [facility] Laboratory - Urinalysison Leukocyte esterase Test strip Ql (U) SMALL Abnormal NEGATIVE [facility] Mucus Ql (Urine sed) TRACE Abnormal NONE SEEN [facility] Nitrite Ql (U) Negative NEGATIVE [facility] Protein (U) [Mass/Vol] 38.9 mg/dL High <=11.9 [facility] Protein Ql (U) TRACE mg/dL NEG/TRACE [facility] Leukocytes [#/volume] correc milagros for nucleated erythrocytes in Blood by Automated counon 05-05-2024 WBC corrected for nucl RBC Auto (Bld) [#/Vol] Leukocytes [#/volume] corrected for nucleated erythrocytes in Blood by Automated coun 4.0-11.0 [facility] MCH Auto (RBC) [Entitic mass ]on 05-05-2024 MCH (RBC) [Entitic mass] MCH [Entitic mass] by Automated count 26.7-34.0 [facility] MCHC Auto (RBC) [Mass/Vol]on 05-05-2024 MCHC (RBC) [Mass/Vol] MCHC [Mass/volume] by Automated count 29.9-35.2 [facility] MCV Auto (RBC) [Entitic vol] on 05-05-2024 MCV (RBC) [Entitic vol] MCV [Entitic volume] by Automated count 81.0-99.0 [facility] No Panel Informationon 05-05 25-Hydroxy Vitamin D Total 76.3 ng/mL [facility] Comment on above: <20 ng/mL Vit D defi cient20-<30 ng/mL Vit D icehedouwhzz68-715 ng/mL Vit D sufficient>100 ng/mL Potential Toxicity Parathyroid Hormone (Intact) 90 pg/mL Abnormal 15-65 [facility] Comment on above: Performed at: [address] [id number] Director: Rich Camejo PhD, Phone: [phone] Phosphorus Level 3.1 mg/dL 2.6-4.7 [facility] Urine Bacteria SMALL #/HPF Abnormal NONE SEEN [facility] Urine Occult Blood SMALL Abnormal NEGATIVE [facility] Urine Random Creatinine 232.52 mg/dL 20.00-300.00 [facility] Urine RBC 2-5 #/HPF Abnormal 0-2 [facility] Urine Squamous Epithelial Cells MODERATE #/LPF Abnormal NONE/RARE [facility] Urine WBC 10-20 #/HPF Abnormal NONE SEEN [facility] Platelet mean volume Auto (B ld) [Entitic vol]on 05-05-2024 Platelet mean volume (Bld) [Entitic vol] Platelet mean volume [Entitic volume] in Blood by Automated count 9.5-13.5 [facility] Platelets Auto (Bld) [#/Vol] on 05-05-2024 Platelets (Bld) [#/Vol] Platelets [#/volume] in Blood by Automated count Low 150-450 [facility] RBC Auto (Bld) [#/Vol]on RBC (Bld) [#/Vol] Erythrocytes [#/volume] in Blood by Automated count 4.20-5.40 [facility] Serum or plasma anion gap de terminationon 05-05-2024 Anion gap [Moles/Vol] Serum or plasma anion gap determination [facility] Urine protein/creatinine rat ioon 05-05-2024 Protein/Creatinine (U) [Ratio] Urine protein/creatinine ratio [facility] Erythrocyte distribution wid th Auto (RBC) [Ratio]on 11-07-2023 Erythrocyte distribution width (RBC) [Ratio] 13.8 % 11.0-15.0 [facility] Estimated glomerular filtrat ion rate (GFR) non- Americanon 11-07-2023 GFR/1.73 sq M.predicted among non-blacks MDRD (S/P/Bld) [Vol rate/Area] 35 mL/min/{1.73_m2} Low >=60 [facility] Hematocrit Auto (Bld) [Volum e fraction]on 11-07-2023 Hematocrit (Bld) [Volume fraction] 38.7 % 36.0-48.0 [facility] Hemoglobin [Mass/volume] in Bloodon 11-07-2023 Hemoglobin (Bld) [Mass/Vol] 11.9 g/dL Low 12.0-16.0 [facility] Laboratory - Chemistry and C hemistry - challengeon 11-07-2023 Albumin [Mass/Vol] 3.1 g/dL Low 3.4-5.0 [facility] Calcium [Mass/Vol] 8.7 mg/dL 8.5-10.1 [facility] Chloride [Moles/Vol] 103 mmol/L 98-107 [facility] CO2 [Moles/Vol] 28.9 mmol/L 21.0-32.0 [facility] Creatinine [Mass/Vol] 1.46 mg/dL High 0.55-1.02 [facility] GFR/1.73 sq M.predicted MDRD (S/P/Bld) [Vol rate/Area] 43 mL/min/{1.73_m2} Low >=60 [facility] Glucose [Mass/Vol] 100 mg/dL 74-106 [facility] Magnesium [Mass/Vol] 1.6 mg/dL Low 1.8-2.4 [facility] Potassium [Moles/Vol] 3.8 mmol/L 3.5-5.1 [facility] Sodium [Moles/Vol] 141 mmol/L 136-145 [facility] Urate [Mass/Vol] 5.3 mg/dL 2.6-6.0 [facility] Urea nitrogen [Mass/Vol] 21.0 mg/dL High 7.0-18.0 [facility] Urea nitrogen/Creatinine [Mass ratio] 14.4 mg/mg [facility] Bilirubin Ql (U) Negative NEGATIVE [facility] Glucose (U) [Mass/Vol] Negative NEGATIVE [facility] Ketones Ql (U) Negative NEGATIVE [facility] pH (U) 6.0 [pH] 5.0-9.0 [facility] Specific gravity (U) [Rel density] >=1.030 Abnormal 1.005-1.025 [facility] Urobilinogen Qn (U) 0.2 {Mikel'U}/dL 0.2-1.0 [facility] Laboratory - Specimen inform ationon 11-07-2023 Appearance (U) CLEAR CLEAR [facility] Color (U) LT. YELLOW YELLOW [facility] Laboratory - Urinalysison Hyaline casts LM Ql (Urine sed) RARE [facility] Leukocyte esterase Test strip Ql (U) MODERATE Abnormal NEGATIVE [facility] Mucus Ql (Urine sed) SMALL Abnormal NONE SEEN [facility] Nitrite Ql (U) Negative NEGATIVE [facility] Protein Ql (U) TRACE mg/dL NEG/TRACE [facility] Leukocytes [#/volume] correc milagros for nucleated erythrocytes in Blood by Automated counon 11-07-2023 WBC corrected for nucl RBC Auto (Bld) [#/Vol] 7.5 10 3/uL 4.0-11.0 [facility] MCH Auto (RBC) [Entitic mass ]on 11-07-2023 MCH (RBC) [Entitic mass] 27.2 pg 26.7-34.0 [facility] MCHC Auto (RBC) [Mass/Vol]on 11-07-2023 MCHC (RBC) [Mass/Vol] 30.7 g/dL 29.9-35.2 [facility] MCV Auto (RBC) [Entitic vol] on 11-07-2023 MCV (RBC) [Entitic vol] 88.4 fL 81.0-99.0 [facility] No Panel Informationon 11-06 25-Hydroxy Vitamin D Total 83.6 ng/mL [facility] Comment on above: <20 ng/mL Vit D defi cient20-<30 ng/mL Vit D xvppvkvjwgid17-559 ng/mL Vit D sufficient>100 ng/mL Potential Toxicity Parathyroid Hormone (Intact) 70 pg/mL Abnormal 15-65 [facility] Comment on above: Performed at: [facility] [address] [id number] Director: Rich Camejo PhD, Phone: [phone] Phosphorus Level 3.2 mg/dL 2.6-4.7 [facility] Urine Bacteria SMALL #/HPF Abnormal NONE SEEN [facility] Urine Occult Blood SMALL Abnormal NEGATIVE [facility] Urine Other Casts SEEN #/LPF Abnormal NONE SEEN [facility] Urine Other Crystals None Seen #/HPF None Seen [facility] Urine RBC 0-2 #/HPF 0-2 [facility] Urine Squamous Epithelial Cells MANY #/LPF Abnormal NONE/RARE [facility] Urine Transitional Epithelial Cells MANY #/LPF Abnormal NONE SEEN [facility] Urine WBC 10-20 #/HPF Abnormal NONE SEEN [facility] Platelet mean volume Auto (B ld) [Entitic vol]on 11-07-2023 Platelet mean volume (Bld) [Entitic vol] 12.6 fL 9.5-13.5 [facility] Platelets Auto (Bld) [#/Vol] on 11-07-2023 Platelets (Bld) [#/Vol] 163 10 3/uL 150-450 [facility] RBC Auto (Bld) [#/Vol]on RBC (Bld) [#/Vol] 4.38 10 6/uL 4.20-5.40 [facility] Serum or plasma anion gap de terminationon 11-07-2023 Anion gap [Moles/Vol] 12.9 mmol/L [facility] Coding Summary.on 07-19-2022 Coding Summary. CD:[id number] Ww+PGhlYWQ+UP8ISHWcJ 81kfZMimL5sY7NWQHtNO ywgQVBQTElOSyIgbmFtZ D5qwHHyWAKk IC8+OL1mKEAqBctxgGDs i4X9kPC3C96oya6fUDmf yLF2OQBwQvKlrfbdm9zx sPp7ZKpsRjmxRcAh IJDjmR05OQF3tD41Av71 dHVtzLNll9oyrAy2RkQn ARGjSUD8iLzvQSozk5Rw ABXsT55xqAXzd4Y8 IGNvbGxhcHNlOyBlbXB0 pO9aJIfffrtnq8zfltfv Yke2gz04qMFlt0D9yZS9 A3OiolD6KUVjrZIz HmxiiPLGkT2wipdec0kd bcfcQmNbFXMzFFa8OJl3 NLVwdHhbQhHcBQ23WHQ8 EIWktcVzI6HcKGQd gTfsFqZ5j9V4Zl1DE6FY UfaoT7TCDXVSKUfoyXA+ YR71ma52H2OkYjfqOte3 FTTwSFD5wYH8kQ1r FNCdVMexc0I4pHS5F0Mm fpAsvy0np4guOSEsARyq R60qaCNfm0P5VZEkpPM3 XHBrqAxnMzXfrB51 Oyc+QHTuhCfif5DzQyij b0tmx6zkgNy0LfeqDOHl ptDwpFjwOUU2q0KqMu4f DYJffOF3dAV7lS5f JsVeUqX5BGtoC037FvGf mLYxMsclM78nA7WktWV+ EABwOci6JMRyxDeiEC6h C4OiWEJrgonblNDg yJpmHQ4aNRRzrlnyFBAl kR2cMUFaZ3u9FtWmDuZ8 FCaeY2ZzTTEeodryWa67 cO3yBuSwBdY9ZYyq P9HjhcG1TAPncJPcVTcz OXL2Q32mx1N3MOIbLLDq JKP6pIV3sV7xbPutmmmz bGVmdDsgdmVydGlj LGbrPRxxF115SIBolRne PkNvZGluZyBEYXRlOiAg MDMvMzAvMjAyMzwvdGQ+ WRIxLXC0dKnmJJJp gNDmXFipQt2wjQqdrOiq XH5yOBPjkfhmDFQodO7h RCAiuJCpxAzfYX0zEXDx swgsi515AhCuDEC5 GSYicGElB0BawR1oQvJq MXJvXMWkN1QueJZcJDxi M616TSvyVsF3UMIkrvWj L1QrCDPqaOyaOvU2 d2I8Aj8Xz0DikwkfR4Zy vBElTwCbKymeUDm2H3Gp PjwvdHI+HZ77CBZnKL65 SWv6VBY7fPrpOQly SVYtD5JloQ5mLiHhOCXq ZGRkOyc+PHRhYmxlIHdp ZHRoPScxMDAlJyBzdHls HF4hBk7iTAHmHQMd xHoixDTlLtNba8rqLGOo PBtcOD9eeCztR7BwuVU5 KJZot9g2Sz02I88pQ4Cj dXA+LBSsgOG4bLZ3 bA2fRwByVsP5LIbsP435 HwIqgIBmSgatz4yvm0tb cWw6QoX5XUKvaaTliEif WFQ9z4GyZu05X58f IHdpZHRoPSIxNSUiIHZh sOputf6hrV8jOo0+PGNv rOM8uKE6tS5iCgCyNnY1 YAigJ730BxIutJPv Fsnui4heh9vfjAy3WbIt IQVuhcSplMdzPXT3d5Tk Ue82N9PpgYqte4MaHsj0 fh82kUAvv0T6uSN1 S9WmLYLprrjinNOupBpd SS8qALTttcruEBZvvB4t OCWnA9p9FlNsJnT9VXcz Q0GvhmU7UDWulWUj VQRgmXHRtQ3nhkgme0lr satfTgJzTPQhRMa4GAu8 JIXvfAuqVuNlUBZ9DjN3 YJF2eSCusG6ivVmr slboxQ8tTiq+HZZ7xFId pWRFYP8eTenebMV+PHRk BHD2rOkpMSdnRAEtpF2w HLDgN7z9JrUpWiH6 NMgaB7PlnaX6APKtdEIf OMMbwAMXsC2zsxing9pg lfjwVcDfZLYuLBr0REm7 LWFsaWduOiBsZWZ0 XeU1DVA8yZIqvC0gkPnq tkuqnS3nMeq+QmlydGgg LUR6XQg6B0VkIkk5GFPs mBfcXZ3xfYGfVPwc Qw8lmOmaeEuuKK8hZDGu jhnqb805KoKsr1imDKNp oCYaGDklIHC9G38dh0J5 FVHwMFKtBOX0dDI1 aZ0hfRbvqvadvFYafGjb mxSocMkoVVtbIVpjN169 LGMomJizWnBrIFq6I1Ml Cbq2ANGczOeaJM1i lFUbHZtzWy4sxUswkDpb DI3jYPKybfcto836EeFp o5akMTZxqDEiYDzbTIS9 Q01sq3T7GCEkHJYh ZLJ3qNA1pE3gqVtvelrm bGVmdDsgdmVydGljYWwt COzgC555CVBqtPdcOhUz wKq9F1WnTuc0LKTd uDnnKG9qoSZxSEvkDf7n fOdoqQseFO8fXGDbipel g865YaXys5mzWPJtwQYj MNsfJXP9W81qt0H2 JWZwNXDjLHM2eSH8vR8i bGlnbjogbGVmdDsgdmVy dJmnYOwmKTmkT425UTYw cDsnPlBhdGllbnQg VFceKSm5U1TkDrtxxNS+ TV60THPuYE20xFNujGPg o3zljFc0HdZaIFMgRLV6 cErpMBsmd0DvWYAo T55uiBZxy7W5FMPimBop oOZhXaFqpMF9qE7aLYwr eluql5kinkyyObrxb6uj ms27aN11N65jQOyy ZHRoPSIzMCUiIHZhbGln tt7fuB1gGu6+PGNvbCB3 vPB8mC3hECUeDgB0UAbj U290HyUqfMEkObsl t6jdj6zbpBo8ZiW7BYPs beVeqRpcNIV2f0MwUu94 B39dHIwtGLPcJDTsNBEt QEZqeVwjfr7wtL5l Ii8+DCLpwUY7nCF3lW8w JsRpLkI6XByjO119WyZa wCVhXmuyL12sF2ImiVQ+ FUVzLvu7SRFihPao ES4ypMWkKJfcAl9aXJO5 GdSsYdPmHWtkC6WjGGWk tpbzfzljhTZ3LXSkELTe pN08Id3dnCaeGHFz nHXUaM9thwwwl2uueroa OgJjCHArGJk0BTr5ZFBx bUmnYgZnJYV8HaN5PDM7 tBDgjP1mgUhenrpn uP6yH4MeRQFrbxdtXm64 xO2eEvKpWzU2MNemYqz+ X5BFKeYSRKCIYPCIX3HY TkUgQTwvdGQ+PHRk NTL8wVbcLPxlUAMtyL6k CHRyO5k6EbOcOiL3LUkf Y1ViKCAprezuHb06dX3i OiWfXsQ8NBlfB7Uo dsI5GRFhwBVsHVdmVEH4 F44ht2A8ADQqTRHrSFY9 bPE9fT7egHwphbgtkILc dDsgdmVydGljYWwt SOvgX617BZUctVtyUuJk PdYnChX2IHU8Z7RkYga8 SFNwiLgzON9qxUHwDGax Om5iyNolhCkaMW8s HADltoovVPCdsI0fUNKv kKTkmLzrOD6oHDSkcmry a390AzRmYNM9GGYxlJYj G2FtuI0rNuUfXHPf UTKtV7EwuUNbHTrfG752 YUigZkD9VXOolaJuQ0Qp XWZtdXctGyZ1t6F7Lm61 MCBZZWFyczwvdGQ+ MXKcFEK4zQpySCrwNZDt lG4kWGTpD5i1LvEsErS0 KQwwO8ZyWAMqzsaeAd75 dM3mAiOiGnT4MVtd Y3QrcgS1SPWpaHQiTUgx OJE9W78bj4K2EGJuUPDo SEH1qPX3dX3rrWrzumio bGVmdDsgdmVydGlj ZHncCQrcW785CWEweRuu PkZlbWFsZTwvdGQ+PHRk SKP6iEcmBFayWKIzrL3c OIWvP0x1TiLzNwM5 CWqaN8IhHWHajrbgRk14 bM3oAbHzSsP9RRtfJ8Xz aiC6IJRzrMKvYYhsIDZ8 W69gx5Q6QFZgQCQf EUR1oTV2rE2hlTyzfmmg bGVmdDsgdmVydGljYWwt QCkfL639HJUsrMthSf47 uVYvrCmtqqP3R2Ct PjwvdHI+WB00GHAuFT81 sRCpcIAsm1npkAc2FoEn FYUqUKT2sQrjZKjzo1Mo QBRuS88etXNjb4T3 IGNvbGxhcHNlOyBlbXB0 wG6zWEoinaxvh9frkuqk Ixdtv0mqld30xR19D04h IHdpZHRoPSIzMCUi CCYvhSjlrn2rwV3xMs1+ JHNuzUV0vLH4xX7qUaZm YfO7JPskQ794ZlFmkICl Lgjpr6raw7ukpTe6 IjIwJSIgdmFsaWduPSJ0 f1DlNe71Z49wYZbqIJId QRTuGZDoHFMdaRylpl4w hF3cTn8+TC1qp2ff we16iT75xWM+PHRkIHN0 sQiwWAogSSLdoU2oRYda FiQ3CRWrDnKnqE34iTJo OGkjCv1ubDlzfLao PW5dMKEvesdtx260PuWi y1xcDVKaqPVqSVrjVHX0 T85wp1M0CULrEAYnURA6 lMR2pK3axVqijmep bGVmdDsgdmVydGljYWwt CYbgQ106BTVpmUgzUfSu dDGqL8uhfgNPCC7kTnjk dGQ+XBEyWEN2bKmp VFviNUPihY2cHXKuJ5g9 UaBoKyH9FJsbH7SidtV2 NLDhdAVjPMVgbWSPxN1e mhlmx2nqpstoMcTy CHRiVWt9LRw7ICEduPux VnVjXDB6RcU2IED2iUSy sC7mcLkkszshdA4eWgk+ RklOOjwvdGQ+PHRk XRP0xMhaQZjmBPXlnW2t OBEgC0x5LkWfOjE1DQco N0UhvcL2BQZduZRzGPIo gAKLbX9etphex3qn lcarVtYwYJHuGLy8JDz9 NRCfnSeeQsLyJQL5ZwT5 GML0aUCmcG8wmDhhozxi sD4mXdx+TVJOOjwv dGQ+DBYuBQC8eWyaHEqh UPOqxF9vDFEyQ9x5IzWr PoA9EAwfG5AtxrG6NVHe tFBeHHGwqVVFqQ1t ynsyq3hwssszYvBgTZWv UFh6CJt4FPOksNeaPuBh BWE4DuB9UUK6ySYehV1n eIkhijfmoZ0sJjj+ DTR0NJO3ST33VL73N2Bg PjwvdGFibGU+PHRhYmxl IHdpZHRoPScxMDAlJyBz nInePJ3zLo1mAYOe LWNvbGxh (more content not included)... [facility] Consent for Procedure/Surger yon 07-17-2022 Consent for Procedure/Surgery [id number]#1.00CD:127 [facility] Consent for Treatmenton - Consent for Treatment [id number] #1.00CD:127 [facility] IntraOperative Documentson 0 07-17-2022 IntraOperative Documents [id number] 2#1.00CD:127 Normal [facility] Main OR Intraoperative Recor don 07-17-2022 Main OR Intraoperative Record IntraOp Document Type FTURO Summary Primary Physician: Iván TOMLIN MD Finalized Date/Time: 07/17/22 09:10:19 Pt. Name: PEG HADLEY/Sex: 1950 Female Med Rec #: [id number] Physician: Iván TOMLIN MD Financial #: [id number] Pt. Type: O Room/Bed: / Admit/Disch: 07/17/22 [...] Palma Ko Role Performed Surgeon - Primary Speech And Language Specialist - Primary Scrub - Primary Time In [...] DEDRA Noe RN, Ruthann 07/17/22 09:10 Normal [facility] Main OR Preoperative Recordo n 07-17-2022 Main OR Preoperative Record Holding Area Document Type FTURO Summary Primary Physician: Iván TOMLIN MD Finalized Date/Time: 07/17/22 09:04:54 Pt. Name: PEG HADLEY/Sex: 1950 Female Med Rec #: [id number] Physician: Iván TOMLIN MD Financial #: [id number] Pt. Type: O Room/Bed: / Admit/Disch: 07/17/22 [...] No Pain Comment: na Skin Integrity Intact, Bynum, Warm, & Dry Vitals - EU Blood Pressure 135/82 Pulse 65 bpm Respirations 16 br/min SPO2 96 % RN Reviewed Yes Last Modified By: DEDRA Noe RN, Ruthann 07/17/22 09:04:49 General Comments: temp:36.4 Finalized By: DEDRA Noe RN, Stefani Document Signatures Signed By: Anival BIRDMaeve Fernando 07/17/22 08:41 DEDRA Noe RN, Ruthann 07/17/22 09:04 Normal [facility] Operative Reporton Operative Report Patient: PEG HADLEY [...] follow-up on a as needed basis.. Normal [facility] Comment on above: Result Comment: Elec tronically Signed By: Iván TOMLIN MD\.br\Date and Time Signed: 07/17/22 09:13 EDT RAD - Ultrasound Reporton RAD - Ultrasound Report [id number] #1.00CD:127 Normal [facility] Urine Cytology ([facility])on 0 07-09-2022 Urine Cytology Diagnosis Info Invalid Interpretation Code [facility] Comment on above: Result Comment: A:Ur ine,Urine:Voided Interpretation - MicroScopic Description - Adequacy - Gross Description Site ID:A color Light Yellow fixative Alcohol Specimen designated Urine received in alcohol preservative and labeled with the patient?s name, consists of 40ml clear light yellow fluid. Electronically signed by : on: 07/09/2022 15:10:50 Performed By: #### 1 [id number] ####[facility] [address] [place] [address] US KIDNEYSon 07-07-2022 US KIDNEYS EXAM: US [...] by: DANIELLE CAM Date: 2022-07-07 10:33 Normal [facility] Formson 07-03-2022 Forms [id number] #1.00CD:127 Normal [facility] Physician Referralon 023 Physician Referral [id number] #1.00CD:127 Normal [facility] Pre-Certification Formon Pre-Certification Form [id number] 8#1.00CD:127 Normal [facility] Ambulatory Visit Summaryon 0 07-02-2022 Ambulatory Visit Summary PEG HADLEY :1950 Visit Date:07/02/2022 Ambulatory Visit Instructions Your Diagnosis Microscopic hematuria Tests Performed Urnls Dip Stick Auto w/o Microscopy POC 23680 US Renal -- Results Pending -- Please [...] Tab) fluticasone nasal (fluticasone 0.05 mg/inh Nasal [place]) hyoscyamine (hyoscyamine 0.125 mg oral Tab) levothyroxine [...] Appointments Follow Up with KELLY BLACKMON, Iván Hus, SHI When: Where: [facility] [address] , [place] [address]- Medications What How Much When Instructions Unchanged [...] fluticasone nasal (fluticasone 0.05 mg/ inh Nasal [place]) 2 Sprays Nasal Inhalation Every day each [...] Urnls Dip Stick Auto w/o Microscopy POC 90252 (07/02/2022) Bilirubin Urine Dipstick - Negative Blood Urine Dipstick - Trace-lysed Glucose Urine Dipstick - Negative Ketones Urine Dipstick - Negative Leukocytes Urine Dipstick - Negative Nitrite Urine Dipstick - Negative Protein Urine Dipstick - Negative Specific [place] Urine Dipstick - >=1.030 Urine Appearance Urine [...] ? (more content not included)... Normal [facility] Patient Educationon 07-03-19 Patient Education [...] these instructions at home: Medicines ? Take paoc-reb-evijour and prescription medicines only as told by [...] the blood stops without treatment. ? Take yvmf-gwq-ysflcjl and prescription medicines only as told by your health care provider. ? Drink enough fluid to keep your urine clear or pale yellow. This information is not intended to replace advice given to you by your health care provider. Make sure you discuss any questions you have with your health care provider. Document Released: 04/08/2006 Document Revised: 09/02/2019 Document Reviewed: 05/11/2017 [employer] Patient Education ? 2019 [employer] Normal [facility] Urine Cytology ([facility])on 0 07-02-2022 Method of Extraction Voided Normal [facility] Comment on above: Performed By: #### 1 [id number] ####[facility] [id number] [place] [address] Number of Jars 1 Invalid Interpretation Code [facility] Comment on above: Performed By: #### 1 [id number] ####[facility] [address] [place] [address] Specimen Urine Normal [facility] Comment on above: Performed By: #### 1 [id number] ####[facility] [address] [place] [address] Type of Service Technical Only Normal [facility] Comment on above: Performed By: #### 1 [id number] ####[facility] [address] [place] [address] PTH INTACTon 05-22-2022 PTH, Intact 75 pg/mL Critically high 15-65 [facility] Comment on above: Performed By: #### P THINT #### [facility] [address] [address] [address] Andrea Mccarthy FERRITINon 05-21-2022 Ferritin [Mass/Vol] 124.0 ng/mL Normal 8.0-252.0 [facility] Comment on above: Performed By: #### U KIM, MG, PHOS #### [facility] [address] [address] [address] Andrea Mccarthy HEMOGRAM AND PLATELon 2022 Hematocrit (Bld) [Volume fraction] 40.1 % Normal 36.0-48.0 [facility] Comment on above: Performed By: #### U KIM, MG, PHOS #### [facility] [address] [place] [address] Dr. Andrea Mccarthy Hemoglobin (Bld) [Mass/Vol] 13.2 g/dL Normal 12.0-16.0 [facility] Comment on above: Performed By: #### U KIM, MG, PHOS #### [facility] [address] [address] [address] Andrea Mccarthy MCH (RBC) [Entitic mass] 28.0 pg Normal 26.7-34.0 [facility] Comment on above: Performed By: #### U KIM, MG, PHOS #### [facility] [address] [place] [address] Dr. Andrea Mccarthy MCHC (RBC) [Mass/Vol] 32.9 g/dL Normal 29.9-35.2 [facility] Comment on above: Performed By: #### U KIM, MG, PHOS #### [facility] [address] [address] [address] Andrea Mccarthy MCV (RBC) [Entitic vol] 85.1 fL Normal 81.0-99.0 [facility] Comment on above: Performed By: #### U KIM, MG, PHOS #### [facility] [address] [address] [address] Andrea Mccarthy PLT 255 103/ul Normal 150-450 [facility] Comment on above: Performed By: #### U KIM, MG, PHOS #### [facility] [address] [address] [address] Andrea Mccarthy RBC 4.71 106/ul Normal 4.20-5.40 [facility] Comment on above: Performed By: #### U KIM, MG, PHOS #### [facility] [address] [place] [address] Dr. Andrea Mccarthy WBC 5.9 103/ul Normal 4.0-11.0 [facility] Comment on above: Performed By: #### U KIM, MG, PHOS #### [facility] [address] [place] [address] Dr. Andrea Mccarthy IRON AND TIBCon 05-21-2022 % SATURATION 18.5 % Normal [facility] Comment on above: Performed By: #### U KIM, MG, PHOS #### [facility] [address] [address] [address] Andrea Mccarthy Iron [Mass/Vol] 51.0 ug/dL Normal 50.0-170.0 [facility] Comment on above: Performed By: #### U KIM, MG, PHOS #### [facility] [address] [place] [address] Dr. Andrea Mccarthy TIBC DIRECT 276.0 ug/dL Normal 250.0-450.0 [facility] Comment on above: Performed By: #### U KIM, MG, PHOS #### [facility] [address] [address] [address] Andrea Mccarthy MAGNESIUMon 05-21-2022 Magnesium [Mass/Vol] 1.8 mg/dL Normal 1.8-2.4 [facility] Comment on above: Performed By: #### U KIM, MG, PHOS #### [facility] [address] [address] [address] Andrea Mccarthy RENAL FUNCTION PANELon 05-21 Albumin [Mass/Vol] 3.5 g/dL Normal 3.4-5.0 [facility] Comment on above: Performed By: #### U KIM, MG, PHOS #### [facility] [address] [address] [address] Andrea Mccarthy Calcium [Mass/Vol] 8.5 mg/dL Normal 8.5-10.1 [facility] Comment on above: Performed By: #### U KIM, MG, PHOS #### [facility] [address] [address] [address] Andrea Mccarthy Chloride [Moles/Vol] 104 mmol/L Normal 98-107 [facility] Comment on above: Performed By: #### U KIM, MG, PHOS #### [facility] [address] [address] [address] Andrea Mccarthy CO2 [Moles/Vol] 29.6 mmol/L Normal 21.0-32.0 [facility] Comment on above: Performed By: #### U KIM, MG, PHOS #### [facility] [address] [address] [address] Andrea Mccarthy Creatinine [Mass/Vol] 1.23 mg/dL Critically high 0.55-1.02 [facility] Comment on above: Performed By: #### U KIM, MG, PHOS #### [facility] [address] [address] [address] Andrea Mccarthy EGFR-AF FAROESE 52 mL/min/1.73m2 Critically low >=60 [facility] Comment on above: Performed By: #### U KIM, MG, PHOS #### [facility] [address] [address] [address] Andrea Mccarthy EGFR-NON AF FAROESE 43 mL/min/1.73m2 Critically low >=60 [facility] Comment on above: Performed By: #### U KIM, MG, PHOS #### [facility] [address] [place] [address] Dr. Andrea Mccarthy Glucose [Mass/Vol] 92 mg/dL Normal 74-106 [facility] Comment on above: Performed By: #### U KIM, MG, PHOS #### [facility] [address] [place] [address] Dr. Andrea Mccarthy Phosphate [Mass/Vol] 3.3 mg/dL Normal 2.6-4.7 [facility] Comment on above: Performed By: #### U KIM, MG, PHOS #### [facility] [address] [place] [address] Dr. Andrea Mccarthy Potassium [Moles/Vol] 3.9 mmol/L Normal 3.5-5.1 [facility] Comment on above: Performed By: #### U KIM, MG, PHOS #### [facility] [address] [place] [address] Dr. Andrea Mccarthy Sodium [Moles/Vol] 141 mmol/L Normal 136-145 [facility] Comment on above: Performed By: #### U KIM, MG, PHOS #### [facility] [address] [place] [address] Dr. Andrea Mccarthy Urea nitrogen [Mass/Vol] 25.0 mg/dL Critically high 7.0-18.0 [facility] Comment on above: Performed By: #### U KIM, MG, PHOS #### [facility] [address] [place] [address] Dr. Andrea Mccarthy UA RANDOM W/MICROSCOPICon BACTERIA NONE SEEN Normal NONE SEEN [facility] Comment on above: Performed By: #### U AMIC #### [facility] [address] [place] [address] Dr. Andrea Mccarthy Bilirubin Ql (U) Negative Normal NEGATIVE [facility] Comment on above: Performed By: #### U AMIC #### [facility] [address] [place] [address] Dr. Andrea Mccarthy CAST NONE SEEN Normal NONE SEEN [facility] Comment on above: Performed By: #### U AMIC #### [facility] [address] [place] [address] Dr. Andrea Mccarthy Clarity (U) CLEAR Normal CLEAR [facility] Comment on above: Performed By: #### U AMIC #### [facility] [address] [place] [address] Dr. Andrea Mccarthy Color (U) YELLOW Normal YELLOW [facility] Comment on above: Performed By: #### U AMIC #### [facility] [address] [place] [address] Dr. Andrea Mccarthy Crystals LM Nom (Urine sed) NONE SEEN Normal NONE SEEN [facility] Comment on above: Performed By: #### U AMIC #### [facility] [address] [place] [address] Dr. Andrea Mccarthy Epithelial cells LM Ql (Urine sed) FEW Abnormal NONE SEEN /RARE [facility] Comment on above: Performed By: #### U AMIC #### [facility] [address] [place] [address] Dr. Andrea Mccarthy Glucose Ql (U) Negative Normal NEGATIVE [facility] Comment on above: Performed By: #### U AMIC #### [facility] [address] [place] [address] Dr. Andrea Mccarthy Hemoglobin Ql (U) TRACE-INTACT Abnormal NEGATIVE [facility] Comment on above: Performed By: #### U AMIC #### [facility] [address] [place] [address] Dr. Andrea Mccarthy Ketones Ql (U) Negative Normal NEGATIVE [facility] Comment on above: Performed By: #### U AMIC #### [facility] [address] [place] [address] Dr. Andrea Mccarthy LEUKOCYTES Negative Normal NEGATIVE [facility] Comment on above: Performed By: #### U AMIC #### [facility] [address] [place] [address] Dr. Andrea Mccarthy MUCOUS TRACE Abnormal NONE SEEN [facility] Comment on above: Performed By: #### U AMIC #### [facility] [address] [address] [address] Andrea Mccarthy Nitrite Ql (U) Negative Normal NEGATIVE [facility] Comment on above: Performed By: #### U AMIC #### [facility] [address] [address] [address] Andrea Mccarthy pH (U) 5.0 [pH] Normal 5-9 [facility] Comment on above: Performed By: #### U AMIC #### [facility] [address] [place] [address] Dr. Andrea Mccarthy RBC 0-2 Normal 0-2 [facility] Comment on above: Performed By: #### U AMIC #### [facility] [address] [place] [address] Dr. Andrea Mccarthy SPEC GRAVITY 1.025 Normal 1.005-<=1.025 [facility] Comment on above: Performed By: #### U AMIC #### [facility] [address] [address] [address] Andrea Mccarthy UA PROTEIN Negative Normal NEGATIVE/ TRACE [facility] Comment on above: Performed By: #### U AMIC #### [facility] [address] [place] [address] Dr. Andrea Mccarthy Urobilinogen Qn (U) 0.2 {Mikel'U}/dL Normal 0.2 - 1. 0 [facility] Comment on above: Performed By: #### U AMIC #### [facility] [address] [address] [address] Andrea Mccarthy WBC NONE SEEN Normal NONE SEEN [facility] Comment on above: Performed By: #### U AMIC #### [facility] [address] [address] [address] Andrea Mccarthy URINE T PROTEIN CREAT RATIOo n 05-21-2022 Protein (U) [Mass/Vol] 21.5 mg/dL Critically high <=12.0 [facility] Comment on above: Performed By: #### U KIM, MG, PHOS #### [facility] [address] [place] [address] Dr. Andrea Mccarthy UR PROT CREAT RAT 0.15 Normal [facility] Comment on above: Performed By: #### U KIM, MG, PHOS #### [facility] [address] [address] [address] Andrea Mccarthy URINE CREAT 144.81 mg/dL Normal 20.00-300.00 [facility] Comment on above: Performed By: #### U KIM, MG, PHOS #### [facility] [address] [address] [address] Andrea Mccarthy VIT B12 AND FOLATEon 023 Cobalamin (Vitamin B12) [Mass/Vol] 1425.0 pg/mL Critically high 193.0-986.0 [facility] Comment on above: Performed By: #### U KIM, MG, PHOS #### [facility] [address] [address] [address] Andrea Mccarthy FOLATE 22.60 ng/mL Normal 8.60-58.90 [facility] Comment on above: Performed By: #### U KIM, MG, PHOS #### [facility] [address] [address] [address] SINUSES WO CONon [...] STEPHEN ROBLES Date: 2022-01-01 07:30 Normal [facility] INSULINon 11-15-2021 Insulin 9.0 uIU/mL Normal 2.6-24.9 [facility] Comment on above: Performed By: #### I NSULIN #### [facility] [address] [address] [address] Andrea Mccarthy PTH INTACTon 11-15-2021 PTH, Intact 43 pg/mL Normal 15-65 [facility] Comment on above: Performed By: #### U KIM, MG, PHOS #### [facility] [address] [address] [address] Andrea Mccarthy VIT D 25-OH LABCORPon 2021 Vitamin D, 25-Hydroxy 85.4 ng/mL Normal 30.0-100.0 [facility] Comment on above: Result Comment: Samina min D deficiency has been defined by the [place] [employer] and an Endocrine Society practice guideline as a level of serum 25-OH vitamin D less than 20 ng/mL (1,2). The Endocrine Society went on to further define vitamin D insufficiency as a level between 21 and 29 ng/mL (2). 1. IOM ([place] [employer]). 2010. Dietary reference intakes for calcium and D. [place]: The National Academies Press. 2. Dagoberto MF, Rachel NC, Edilson MARTINEZ, et al. Evaluation, treatment, and prevention of vitamin D deficiency: an Endocrine Society clinical practice guideline. JCEM. 2010; 96(7):1911-30. Performed By: #### V ITADLC #### [facility] [address] [address] [address] Andrea Mccarthy CBC AUTO DIFFon 11-14-2021 BASO # 0.0 103/ul Normal 0.0-0.1 [facility] Comment on above: Performed By: #### U KIM, MG, PHOS #### [facility] [address] [place] [address] Dr. Andrea Mccarthy Basophils/100 WBC (Bld) 0.6 % Normal 0.2-2.0 [facility] Comment on above: Performed By: #### U KIM, MG, PHOS #### [facility] [address] [place] [address] Dr. Andrea Mccarthy EO # 0.2 103/ul Normal 0.0-0.7 [facility] Comment on above: Performed By: #### U KIM, MG, PHOS #### [facility] [address] [place] [address] Dr. Andrea Mccarthy Eosinophils/100 WBC (Bld) 2.4 % Normal 0.9-7.0 [facility] Comment on above: Performed By: #### U KIM, MG, PHOS #### [facility] [address] [place] [address] Dr. Andrea Mccarthy Erythrocyte distribution width (RBC) [Ratio] 14.0 % Normal 11.0-15.0 [facility] Comment on above: Performed By: #### U KIM, MG, PHOS #### [facility] [address] [place] [address] Dr. Andrea Mccarthy Hematocrit (Bld) [Volume fraction] 35.7 % Critically low 36.0-48.0 [facility] Comment on above: Performed By: #### U KIM, MG, PHOS #### [facility] [address] [place] [address] Dr. Andrea Mccarthy Hemoglobin (Bld) [Mass/Vol] 11.2 g/dL Critically low 12.0-16.0 [facility] Comment on above: Performed By: #### U KIM, MG, PHOS #### [facility] [address] [place] [address] Dr. Andrea Mccarthy IG # 0.02 10e3/ul Normal 0.00-0.03 [facility] Comment on above: Performed By: #### U KIM, MG, PHOS #### [facility] [address] [address] [address] Andrea Mccarthy IG % 0.3 % Normal 0.0-0.5 [facility] Comment on above: Performed By: #### U KIM, MG, PHOS #### [facility] [address] [place] [address] Dr. Andrea Mccarthy LYMPH # 1.8 103/ul Normal 1.2-3.8 [facility] Comment on above: Performed By: #### U KIM, MG, PHOS #### [facility] [address] [place] [address] Dr. Andrea Mccarthy Lymphocytes/100 WBC (Bld) 24.9 % Normal 20.5-60.0 [facility] Comment on above: Performed By: #### U KIM, MG, PHOS #### [facility] [address] [place] [address] Dr. Andrea Mccarthy MANUAL DIFF REQ NO Normal [facility] Comment on above: Performed By: #### U KIM, MG, PHOS #### [facility] [address] [place] [address] Dr. Andrea Mccarthy MCH (RBC) [Entitic mass] 27.3 pg Normal 26.7-34.0 [facility] Comment on above: Performed By: #### U KIM, MG, PHOS #### [facility] [address] [place] [address] Dr. Andrea Mccarthy MCHC (RBC) [Mass/Vol] 31.4 g/dL Normal 29.9-35.2 [facility] Comment on above: Performed By: #### U KIM, MG, PHOS #### [facility] [address] [place] [address] Dr. Andrea Mccarthy MCV (RBC) [Entitic vol] 87.1 fL Normal 81.0-99.0 [facility] Comment on above: Performed By: #### U KIM, MG, PHOS #### [facility] [address] [place] [address] Dr. Andrea Mccarthy MONO # 0.5 103/ul Normal 0.3-0.8 [facility] Comment on above: Performed By: #### U KIM, MG, PHOS #### [facility] [address] [address] [address] Andrea Mccarthy Monocytes/100 WBC (Bld) 7.0 % Normal 1.7-12.0 [facility] Comment on above: Performed By: #### U KIM, MG, PHOS #### [facility] [address] [place] [address] Dr. Andrea Mccarthy NEUT # 4.7 103/ul Normal 1.4-6.5 [facility] Comment on above: Performed By: #### U KIM, MG, PHOS #### [facility] [address] [place] [address] Dr. Andrea Mccarthy Neutrophils/100 WBC (Bld) 64.8 % Normal 43.0-75.0 [facility] Comment on above: Performed By: #### U KIM, MG, PHOS #### [facility] [address] [place] [address] Dr. Andrea Mccarthy Platelet mean volume (Bld) [Entitic vol] 10.1 fL Normal 9.5-13.5 [facility] Comment on above: Performed By: #### U KIM, MG, PHOS #### [facility] [address] [place] [address] Dr. Andrea Mccarthy PLT 309 103/ul Normal 150-450 [facility] Comment on above: Performed By: #### U KIM, MG, PHOS #### [facility] [address] [place] [address] Dr. Andrea Mccarthy RBC 4.10 106/ul Critically low 4.20-5.40 [facility] Comment on above: Performed By: #### U KIM, MG, PHOS #### [facility] [address] [place] [address] Dr. Andrea Mccarthy WBC 7.2 103/ul Normal 4.0-11.0 [facility] Comment on above: Performed By: #### U KIM, MG, PHOS #### [facility] [address] [place] [address] Dr. Andrea Mccarthy FREE THYROXINE INDEX T7on FTI 4.14 Normal 1.30-4.50 [facility] Comment on above: Performed By: #### U KIM, MG, PHOS #### [facility] [address] [address] [address] Andrea Mccarthy T3U 36.0 % Normal 30.0-39.0 [facility] Comment on above: Performed By: #### U KIM, MG, PHOS #### [facility] [address] [address] [address] Andrea Mccarthy T4 [Mass/Vol] 11.50 ug/dL Normal 4.80-13.90 [facility] Comment on above: Performed By: #### U KIM, MG, PHOS #### [facility] [address] [place] [address] Dr. Andrea Mccarthy GLYCOHEMOGLOBIN A1Con 2021 ADA RECOMMENDATION SEE BELOW Normal [facility] Comment on above: Result Comment: ADA RECOMMENDED LIMIT 4.0 - 6.0 ADA THERAPEUTIC TARGET < 7.0 ACTION SUGGESTED > 7.0 Performed By: #### A 1C #### [facility] [address] [address] [address] Andrea Mccarthy Glucose [Mass/Vol] 137 mg/dL Normal [facility] Comment on above: Performed By: #### A 1C #### [facility] [address] [address] [address] Andrea Mccarthy HbA1c (Bld) [Mass fraction] 6.4 % Critically high 4.5-6.2 [facility] Comment on above: Performed By: #### A 1C #### [facility] [address] [address] [address] Andrea Mccarthy IRONon 11-14-2021 Iron [Mass/Vol] 34.0 ug/dL Critically low 50.0-170.0 [facility] Comment on above: Performed By: #### U KIM, MG, PHOS #### [facility] [address] [address] [address] Andrea Mccarthy LIPID PROFILEon 11-14-2021 CHOL-HDL RATIO NORM SEE BELOW Normal [facility] Comment on above: Result Comment: 3.3 - 4.4 LOW RISK 4.4 - 7.1 AVERAGE RISK 7.1 - 11.0 MODERATE RISK >11.0 HIGH RISK Performed By: #### L IPID, TSH, T7, CMP #### [facility] [address] [address] [address] Andrea Mccarthy Cholesterol [Mass/Vol] 152 mg/dL Normal <=200 [facility] Comment on above: Performed By: #### L IPID, TSH, T7, CMP #### [facility] [address] [address] [address] Andrea Mccarthy Cholesterol in HDL [Mass/Vol] 51 mg/dL Normal 40-60 [facility] Comment on above: Performed By: #### L IPID, TSH, T7, CMP #### [facility] [address] [address] [address] Andrea Mccarthy Cholesterol in LDL [Mass/Vol] 83.4 mg/dL Normal [facility] Comment on above: Performed By: #### L IPID, TSH, T7, CMP #### [facility] [address] [address] [address] Andrea Mccarthy Cholesterol.total/Ch olesterol in HDL [Mass ratio] 3.0 {ratio} Normal [facility] Comment on above: Performed By: #### L IPID, TSH, T7, CMP #### [facility] [address] [address] [address] Andrea Mccarthy HDL NORMAL > or = 60 mg/dl - LOW CARDIOVASCULAR RISK <40 mg/dl - HIGH CARDIOVASCULAR RISK Normal [facility] Comment on above: Performed By: #### L IPID, TSH, T7, CMP #### [facility] [address] [address] [address] Andrea Mccarthy LDL CALC NORMAL SEE BELOW Normal [facility] Comment on above: Result Comment: <100 mg/dl OPTIMAL 100 - 129 mg/dl NEAR OR ABOVE OPTIMAL 130 - 159 mg/dl BORDERLINE HIGH 160 - 189 mg/dl HIGH >190 mg/dl VERY HIGH Performed By: #### L IPID, TSH, T7, CMP #### [facility] [address] [place] [address] Dr. Andrea Mccarthy Triglyceride [Mass/Vol] 88 mg/dL Normal <=150 [facility] Comment on above: Performed By: #### L IPID, TSH, T7, CMP #### [facility] [address] [place] [address] Dr. Andrea Mccarthy VLDL CALC 17.6 mg/dL Normal [facility] Comment on above: Performed By: #### L IPID, TSH, T7, CMP #### [facility] [address] [place] [address] Dr. Andrea Mccarthy MAGNESIUMon 11-14-2021 Magnesium [Mass/Vol] 2.2 mg/dL Normal 1.8-2.4 [facility] Comment on above: Performed By: #### U KIM, MG, PHOS #### [facility] [address] [place] [address] Dr. Andrea Mccarthy PHOSPHORUSon 11-14-2021 Phosphate [Mass/Vol] 3.0 mg/dL Normal 2.6-4.7 [facility] Comment on above: Performed By: #### U KIM, MG, PHOS #### [facility] [address] [place] [address] Dr. Andrea Mccarthy PROF 14(COMP METB)on 022 Albumin [Mass/Vol] 3.2 g/dL Critically low 3.4-5.0 [facility] Comment on above: Performed By: #### L IPID, TSH, T7, CMP #### [facility] [address] [place] [address] Dr. Andrea Mccarthy Albumin/Globulin [Mass ratio] 0.8 {ratio} Normal [facility] Comment on above: Performed By: #### L IPID, TSH, T7, CMP #### [facility] [address] [place] [address] Dr. Andrea Mccarthy ALP [Catalytic activity/Vol] 51 U/L Normal 46-116 [facility] Comment on above: Performed By: #### L IPID, TSH, T7, CMP #### [facility] [address] [address] [address] Andrea Mccarthy ALT [Catalytic activity/Vol] 13 U/L Critically low 14-59 [facility] Comment on above: Performed By: #### L IPID, TSH, T7, CMP #### [facility] [address] [place] [address] Dr. Andrea Mccarthy Anion gap [Moles/Vol] 11.4 mmol/L Normal [facility] Comment on above: Performed By: #### L IPID, TSH, T7, CMP #### [facility] [address] [place] [address] Dr. Andrea Mccarthy AST [Catalytic activity/Vol] 9 U/L Critically low 15-37 [facility] Comment on above: Performed By: #### L IPID, TSH, T7, CMP #### [facility] [address] [place] [address] Dr. Andrea Mccarthy Bilirubin [Mass/Vol] 0.3 mg/dL Normal 0.2-1.0 [facility] Comment on above: Performed By: #### L IPID, TSH, T7, CMP #### [facility] [address] [place] [address] Dr. Andrea Mccarthy Calcium [Mass/Vol] 8.4 mg/dL Critically low 8.5-10.1 [facility] Comment on above: Performed By: #### L IPID, TSH, T7, CMP #### [facility] [address] [address] [address] Andrea Mccarthy Chloride [Moles/Vol] 105 mmol/L Normal 98-107 [facility] Comment on above: Performed By: #### L IPID, TSH, T7, CMP #### [facility] [address] [address] [address] Andrea Mccarthy CO2 [Moles/Vol] 27.7 mmol/L Normal 21.0-32.0 [facility] Comment on above: Performed By: #### L IPID, TSH, T7, CMP #### [facility] [address] [address] [address] Andrea Mccarthy Creatinine [Mass/Vol] 1.31 mg/dL Critically high 0.55-1.02 [facility] Comment on above: Performed By: #### L IPID, TSH, T7, CMP #### [facility] [address] [place] [address] Dr. Andrea Mccarthy EGFR-AF FAROESE 49 mL/min/1.73m2 Critically low >=60 [facility] Comment on above: Performed By: #### L IPID, TSH, T7, CMP #### [facility] [address] [place] [address] Dr. Andrea Mccarthy EGFR-NON AF FAROESE 40 mL/min/1.73m2 Critically low >=60 [facility] Comment on above: Performed By: #### L IPID, TSH, T7, CMP #### [facility] [address] [place] [address] Dr. Andrea Mccarthy Globulin (S) [Mass/Vol] 3.9 g/dL Normal [facility] Comment on above: Performed By: #### L IPID, TSH, T7, CMP #### [facility] [address] [place] [address] Dr. Andrea Mccarthy Glucose [Mass/Vol] 97 mg/dL Normal 74-106 [facility] Comment on above: Performed By: #### L IPID, TSH, T7, CMP #### [facility] [address] [place] [address] Dr. Andrea Mccarthy Potassium [Moles/Vol] 4.1 mmol/L Normal 3.5-5.1 [facility] Comment on above: Performed By: #### L IPID, TSH, T7, CMP #### [facility] [address] [place] [address] Dr. Andrea Mccarthy Protein [Mass/Vol] 7.1 g/dL Normal 6.4-8.2 [facility] Comment on above: Performed By: #### L IPID, TSH, T7, CMP #### [facility] [address] [place] [address] Dr. Andrea Mccarthy Sodium [Moles/Vol] 140 mmol/L Normal 136-145 [facility] Comment on above: Performed By: #### L IPID, TSH, T7, CMP #### [facility] [address] [address] [address] Andrea Mccarthy Urea nitrogen [Mass/Vol] 23.0 mg/dL Critically high 7.0-18.0 [facility] Comment on above: Performed By: #### L IPID, TSH, T7, CMP #### [facility] [address] [place] [address] Dr. Andrea Mccarthy Urea nitrogen/Creatinine [Mass ratio] 17.6 mg/mg Normal [facility] Comment on above: Performed By: #### L IPID, TSH, T7, CMP #### [facility] [address] [place] [address] Dr. Andrea Mccarthy TSHon 11-14-2021 TSH 0.032 uIU/mL Critically low 0.358-3.740 [facility] Comment on above: Performed By: #### U KIM, MG, PHOS #### [facility] [address] [place] [address] Dr. Andrea Mccarthy UA RANDOM W/MICROSCOPICon BACTERIA NONE SEEN Normal NONE SEEN [facility] Comment on above: Performed By: #### U KIM, MG, PHOS #### [facility] [address] [place] [address] Dr. Andrea Mccarthy Bilirubin Ql (U) Negative Normal NEGATIVE [facility] Comment on above: Performed By: #### U KIM, MG, PHOS #### [facility] [address] [place] [address] Dr. Andrea Mccarthy CAST NONE SEEN Normal NONE SEEN [facility] Comment on above: Performed By: #### U KIM, MG, PHOS #### [facility] [address] [place] [address] Dr. Andrea Mccarthy Clarity (U) CLEAR Normal CLEAR [facility] Comment on above: Performed By: #### U KIM, MG, PHOS #### [facility] [address] [place] [address] Dr. Andrea Mccarthy Color (U) YELLOW Normal YELLOW [facility] Comment on above: Performed By: #### U KIM, MG, PHOS #### [facility] [address] [address] [address] Andrea Mccarthy Crystals LM Nom (Urine sed) NONE SEEN Normal NONE SEEN [facility] Comment on above: Performed By: #### U KIM, MG, PHOS #### [facility] [address] [address] [address] Andrea Mccarthy Epithelial cells LM Ql (Urine sed) FEW Abnormal NONE SEEN /RARE [facility] Comment on above: Performed By: #### U KIM, MG, PHOS #### [facility] [address] [address] [address] Andrea Mccarthy Glucose Ql (U) Negative Normal NEGATIVE [facility] Comment on above: Performed By: #### U KIM, MG, PHOS #### [facility] [address] [place] [address] Dr. Andrea Mccarthy Hemoglobin Ql (U) TRACE-INTACT Abnormal NEGATIVE [facility] Comment on above: Performed By: #### U KIM, MG, PHOS #### [facility] [address] [place] [address] Dr. Andrea Mccarthy Ketones Ql (U) Negative Normal NEGATIVE [facility] Comment on above: Performed By: #### U KIM, MG, PHOS #### [facility] [address] [place] [address] Dr. Andrea Mccarthy LEUKOCYTES Negative Normal NEGATIVE [facility] Comment on above: Performed By: #### U KIM, MG, PHOS #### [facility] [address] [address] [address] Andrea Mccarthy MUCOUS SMALL Abnormal NONE SEEN [facility] Comment on above: Performed By: #### U KIM, MG, PHOS #### [facility] [address] [place] [address] Dr. Andrea Mccarthy Nitrite Ql (U) Negative Normal NEGATIVE [facility] Comment on above: Performed By: #### U KIM, MG, PHOS #### [facility] [address] [address] [address] Andrea Mccarthy pH (U) 5.5 [pH] Normal 5-9 [facility] Comment on above: Performed By: #### U KIM, MG, PHOS #### [facility] [address] [place] [address] Dr. Andrea Mccarthy RBC 0-2 Normal 0-2 [facility] Comment on above: Performed By: #### U KIM, MG, PHOS #### [facility] [address] [place] [address] Dr. Andrea Mccarthy SPEC GRAVITY 1.020 Normal 1.005-<=1.025 [facility] Comment on above: Performed By: #### U KIM, MG, PHOS #### [facility] [address] [place] [address] Dr. Andrea Mccarthy UA PROTEIN Negative Normal NEGATIVE/ TRACE [facility] Comment on above: Performed By: #### U KIM, MG, PHOS #### [facility] [address] [place] [address] Dr. Andrea Mccarthy Urobilinogen Qn (U) 0.2 {Mikel'U}/dL Normal 0.2 - 1. 0 [facility] Comment on above: Performed By: #### U KIM, MG, PHOS #### [facility] [address] [place] [address] Dr. Andrea Mccarthy WBC NONE SEEN Normal NONE SEEN [facility] Comment on above: Performed By: #### U KIM, MG, PHOS #### [facility] [address] [place] [address] Dr. Andrea Mccarthy URIC ACID SERUMon 11-14-2021 Urate [Mass/Vol] 5.0 mg/dL Normal 2.6-6.0 [facility] Comment on above: Performed By: #### U KIM, MG, PHOS #### [facility] [address] [place] [address] Dr. Andrea Mccarthy URINE T PROTEIN CREAT RATIOo n 11-14-2021 Protein (U) [Mass/Vol] 22.3 mg/dL Critically high <=12.0 [facility] Comment on above: Performed By: #### U KIM, MG, PHOS #### [facility] [address] [address] [address] Andrea Mccarthy UR PROT CREAT RAT 0.15 Normal [facility] Comment on above: Performed By: #### U KIM, MG, PHOS #### [facility] [address] [address] [address] Andrea Mccarthy URINE CREAT 151.50 mg/dL Normal 20.00-300.00 [facility] Comment on above: Performed By: #### U KIM, MG, PHOS #### [facility] [address] [address] [address] Andrea Mccarthy Vital Signs Date Time Vital Sign Value Performing Clinician Facility 07-17-2024 17:52-0400 Body height 162.56 cm [facility] 07-17-2024 17:52-0400 Body mass index (BMI) [Ratio] 30.5 kg/m2 [facility] 07-17-2024 17:52-0400 Body temperature 97.8 [degF] [facility] 07-17-2024 17:52-0400 Body weight 80.79 kg [facility] 07-17-2024 17:52-0400 Diastolic blood pressure 87 mm[Hg] [facility] 07-17-2024 17:52-0400 Heart rate 104 /min [facility] 07-17-2024 17:52-0400 Respiratory rate 18 /min [facility] 07-17-2024 17:52-0400 SaO2% (BldA) [Mass fraction] 94 % [facility] 07-17-2024 17:52-0400 Systolic blood pressure 130 mm[Hg] [facility] 06-29-2024 13:34-0400 Body height 162.56 cm [facility] 06-29-2024 13:34-0400 Body mass index (BMI) [Ratio] 30.2 kg/m2 [facility] 06-29-2024 13:34-0400 Body temperature 97.6 [degF] [facility] 06-29-2024 13:34-0400 Body weight 80.05 kg [facility] 06-29-2024 13:34-0400 Diastolic blood pressure 79 mm[Hg] [facility] 06-29-2024 13:34-0400 Heart rate 68 /min [facility] 06-29-2024 13:34-0400 Respiratory rate 19 /min [facility] 06-29-2024 13:34-0400 SaO2% (BldA) [Mass fraction] 97 % [facility] 06-29-2024 13:34-0400 Systolic blood pressure 141 mm[Hg] [facility] 05-12-2024 10:59-0500 Body height 162.56 cm [facility] 05-12-2024 10:59-0500 Body mass index (BMI) [Ratio] 30.2 kg/m2 [facility] 05-12-2024 10:59-0500 Body weight 80 kg [facility] 05-12-2024 10:59-0500 Diastolic blood pressure 80 mm[Hg] [facility] 05-12-2024 10:59-0500 Heart rate 87 /min [facility] 05-12-2024 10:59-0500 Respiratory rate 16 /min [facility] 05-12-2024 10:59-0500 SaO2% (BldA) [Mass fraction] 96 % [facility] 05-12-2024 10:59-0500 Systolic blood pressure 117 mm[Hg] [facility] 05-03-2024 09:59-0500 Body height 162.56 cm [facility] 05-03-2024 09:59-0500 Body mass index (BMI) [Ratio] 30 kg/m2 [facility] 05-03-2024 09:59-0500 Body temperature 97.3 [degF] [facility] 05-03-2024 09:59-0500 Body weight 79.49 kg [facility] 05-03-2024 09:59-0500 Diastolic blood pressure 82 mm[Hg] [facility] 05-03-2024 09:59-0500 Heart rate 110 /min [facility] 05-03-2024 09:59-0500 Respiratory rate 16 /min [facility] 05-03-2024 09:59-0500 SaO2% (BldA) [Mass fraction] 95 % [facility] 05-03-2024 09:59-0500 Systolic blood pressure 121 mm[Hg] [facility] 11-11-2023 12:58-0400 Body height 162.56 cm [facility] 11-11-2023 12:58-0400 Body mass index (BMI) [Ratio] 30 kg/m2 [facility] 11-11-2023 12:58-0400 Body weight 79.37 kg [facility] 11-11-2023 12:58-0400 Diastolic blood pressure 88 mm[Hg] [facility] 11-11-2023 12:58-0400 Systolic blood pressure 136 mm[Hg] [facility] 10-19-2023 12:21-0400 Body height 162.56 cm [facility] 10-19-2023 12:21-0400 Body mass index (BMI) [Ratio] 30.4 kg/m2 [facility] 10-19-2023 12:21-0400 Body temperature 98.3 [degF] [facility] 10-19-2023 12:21-0400 Body weight 80.39 kg [facility] 10-19-2023 12:21-0400 Heart rate 82 /min [facility] 10-19-2023 12:21-0400 Respiratory rate 16 /min [facility] 10-19-2023 12:21-0400 SaO2% (BldA) [Mass fraction] 96 % [facility] 05-21-2023 10:40-0500 Body height 162.56 cm Audie Dionne Other [facility] Other 05-21-2023 10:40-0500 Body mass index (BMI) [Ratio] 29.59 kg/m2 Audie Dionne Other [facility] Other 05-21-2023 10:40-0500 Body temperature 96.3 [degF] Audie Dionne Other [facility] Other 05-21-2023 10:40-0500 Body weight 78.2 kg Audie Dionne Other [facility] Other 05-21-2023 10:40-0500 Diastolic blood pressure 80 mm[Hg] Audie Dionne Other [facility] Other 05-21-2023 10:40-0500 Respiratory rate 18 /min Audie Dionne Other [facility] Other 05-21-2023 10:40-0500 SaO2% (BldA) [Mass fraction] 98 % Audie Dionne Other [facility] Other 05-21-2023 10:40-0500 Systolic blood pressure 118 mm[Hg] Audie Dionne Other [facility] Other 11-19-2022 11:00-0400 Body height 162.56 cm Audie Dionne Other [facility] Other 11-19-2022 11:00-0400 Body mass index (BMI) [Ratio] 28.9 kg/m2 Audie Dionne Other [facility] Other 11-19-2022 11:00-0400 Body temperature 96 [degF] Audie Dionne Other [facility] Other 11-19-2022 11:00-0400 Body weight 76.39 kg Audie Dionne Other [facility] Other 11-19-2022 11:00-0400 Diastolic blood pressure 81 mm[Hg] Audie Dionne Other [facility] Other 11-19-2022 11:00-0400 Respiratory rate 18 /min Audie Dionne Other [facility] Other 11-19-2022 11:00-0400 SaO2% (BldA) [Mass fraction] 98 % Audie Dionne Other [facility] Other 11-19-2022 11:00-0400 Systolic blood pressure 132 mm[Hg] Audie Dionne Other [facility] Other 07-02-2022 14:17-0400 Blood Pressure Location Iván TOMLIN [facility] 07-02-2022 14:17-0400 Diastolic blood pressure 88 mm[Hg] Iván TOMLIN [facility] 07-02-2022 14:17-0400 Heart rate 71 /min Iván TOMLIN [facility] 07-02-2022 14:17-0400 Systolic blood pressure 128 mm[Hg] Iván TOMLIN [facility] 05-29-2022 10:40-0500 Body height 162.56 cm Audie Dionne Other [facility] Other 05-29-2022 10:40-0500 Body mass index (BMI) [Ratio] 28.22 kg/m2 Audie Dionne Other [facility] Other 05-29-2022 10:40-0500 Body temperature 96.3 [degF] Audie Dionne Other [facility] Other 05-29-2022 10:40-0500 Body weight 74.57 kg Audie Dionne Other [facility] Other 05-29-2022 10:40-0500 Diastolic blood pressure 81 mm[Hg] Audie Dionne Other [facility] Other 05-29-2022 10:40-0500 Respiratory rate 18 /min Audie Dionne Other [facility] Other 05-29-2022 10:40-0500 SaO2% (BldA) [Mass fraction] 98 % Audie Dionne Other [facility] Other 05-29-2022 10:40-0500 Systolic blood pressure 125 mm[Hg] Audie Dionne Other [facility] Other 11-21-2021 12:40-0400 Body height 162.56 cm Audie Dionne Other [facility] Other 11-21-2021 12:40-0400 Body mass index (BMI) [Ratio] 28.22 kg/m2 Audie Dionne Other [facility] Other 11-21-2021 12:40-0400 Body temperature 96.8 [degF] Audie Dionne Other [facility] Other 11-21-2021 12:40-0400 Body weight 74.57 kg Audie Dionne Other [facility] Other 11-21-2021 12:40-0400 Diastolic blood pressure 79 mm[Hg] Audie Dionne Other [facility] Other 11-21-2021 12:40-0400 Respiratory rate 18 /min Audie Dionne Other [facility] Other 11-21-2021 12:40-0400 SaO2% (BldA) [Mass fraction] 98 % Audie Dionne Other [facility] Other 11-21-2021 12:40-0400 Systolic blood pressure 117 mm[Hg] Audie Dionne Other [facility] Other 06-01-2021 16:20-0500 Body height 162.56 cm Audie Dionne Other [facility] Other 06-01-2021 16:20-0500 Body mass index (BMI) [Ratio] 30.89 kg/m2 Audie Dionne Other [facility] Other 06-01-2021 16:20-0500 Body temperature 96.5 [degF] Audie Dionne Other [facility] Other 06-01-2021 16:20-0500 Body weight 81.65 kg Audie Dionne Other [facility] Other 06-01-2021 16:20-0500 Diastolic blood pressure 80 mm[Hg] Audie Dionne Other [facility] Other 06-01-2021 16:20-0500 Respiratory rate 18 /min Audie Dionne Other [facility] Other 06-01-2021 16:20-0500 SaO2% (BldA) [Mass fraction] 98 % Audie Dionne Other [facility] Other 06-01-2021 16:20-0500 Systolic blood pressure 119 mm[Hg] Audie Dionne Other [facility] Other 03-27-2021 16:20-0500 Body height 162.56 cm Audie Dionne Other [facility] Other 03-27-2021 16:20-0500 Body mass index (BMI) [Ratio] 31.55 kg/m2 Audie Dionne Other [facility] Other 03-27-2021 16:20-0500 Body temperature 96.5 [degF] Audie Dionne Other [facility] Other 03-27-2021 16:20-0500 Body weight 83.37 kg Audie Dionne Other [facility] Other 03-27-2021 16:20-0500 Diastolic blood pressure 80 mm[Hg] Audie Dionne Other [facility] Other 03-27-2021 16:20-0500 Respiratory rate 18 /min Audie Dionne Other [facility] Other 03-27-2021 16:20-0500 SaO2% (BldA) [Mass fraction] 99 % Audie Dionne Other [facility] Other 03-27-2021 16:20-0500 Systolic blood pressure 119 mm[Hg] Audie Dionne Other [facility] [employer] Other Encounters Encounter Date Encounter Type Care Provider Facility Start: 07-17-2024 End: 07-17-2024 ambulatory [facility] Work Phone: Start: 07-17-2024 End: 07-17-2024 Patient encounter procedure [facility] Work Phone: Start: 06-29-2024 End: 06-29-2024 ambulatory [facility] Work Phone: Start: 06-29-2024 End: 06-29-2024 [facility] encounter procedure [facility] Work Phone: Start: 05-12-2024 End: 05-12-2024 ambulatory [facility] Work Phone: Start: 05-12-2024 End: 05-12-2024 Patient encounter procedure [facility] Work Phone: Start: 05-05-2024 Non-patient / Non-visit [facility] Work Phone: Start: 05-03-2024 End: 05-03-2024 ambulatory [facility] Work Phone: Start: 05-03-2024 End: 05-03-2024 Patient encounter procedure [facility] Work Phone: Start: 11-11-2023 End: 11-11-2023 ambulatory [facility] Work Phone: Start: 11-11-2023 End: 11-11-2023 Patient encounter procedure [facility] Work Phone: Start: 11-07-2023 Non-patient / Non-visit [facility] Work Phone: Start: 10-19-2023 End: 10-19-2023 ambulatory [facility] Work Phone: Start: 10-19-2023 End: 10-19-2023 Patient encounter procedure [facility] Work Phone: Start: 05-21-2023 End: 05-21-2023 ambulatory Audie Dionne Other [facility] Other Start: 05-21-2023 Office outpatient vi sit 25 minutes Audie Dionne [facility] Start: 11-19-2022 End: 11-19-2022 ambulatory Audie Dionne Other [facility] Other Start: 11-19-2022 Office outpatient vi sit 15 minutes Audie Dionne [facility] Start: 09-06-2022 ambulatory YARITZA LOPEZ Facility: Start: 07-17-2022 End: 07-18-2022 ambulatory Iván TOMLIN Facility:[facility] Start: 07-17-2022 End: 07-17-2022 Patient encounter procedure Iván TOMLIN [facility] Start: 07-07-2022 End: 07-08-[address] IVÁN TOMLIN . Facility: Start: 07-02-2022 End: 07-03-2022 ambulatory MD AUDIE TRUONG Facility:[facility] Start: 07-02-2022 End: 07-02-2022 Patient encounter procedure Iván TOMLIN [facility] Start: 05-31-2022 ambulatory MD AUDIE TRUONG Facility :[facility] Start: 05-29-2022 End: 05-29-2022 ambulatory Audie Dionne Other [facility] Other Start: 05-29-2022 Office outpatient vi sit 25 minutes Audie Dionne [facility] Start: 05-21-2022 End: 05-22-2022 ambulatory YARITZA LOPEZ Facility:[facility] Start: 12-30-2021 End: 12-31-2021 ambulatory YARITZA LOPEZ Facility:[facility] Start: 11-21-2021 End: 11-21-2021 ambulatory Audie Dionne Other [facility] Other Start: 11-21-2021 Office outpatient vi sit 25 minutes Audie Dionne [facility] Start: 11-14-2021 End: 11-15-2021 ambulatory AUDIE DIONNE Facility:[facility] Start: 06-02-2021 End: 06-02-2021 ambulatory Audie Dionne Other [facility] Other Start: 06-02-2021 Telephone encounter Audie Dionne [facility] Start: 06-01-2021 End: 06-01-2021 ambulatory Audie Dionne Other [facility] Other Start: 06-01-2021 Office outpatient vi sit 25 minutes Audie Dionne [facility] Start: 03-27-2021 End: 03-27-2021 ambulatory Audie Dionne Other [facility] Other Start: 03-27-2021 Office outpatient ne w 45 minutes Audie Dionne [facility] Procedures Date Procedure Procedure Detail Performing Clinician Start: 01-08-2019 Esophagogastroduodenoscopy Iván TOMLIN Abdominal hysterectomy Clarence TOMLIN Appendectomy Iván TOMLIN Colonoscopy Iván TOMLIN Plan of Treatment Date Care Activity Detail Author Renal function 1999 panel - Serum or Plasma [facility] enter Renal function 1999 panel - Serum or Plasma [facility] Payers Date Payer Category Payer Private Health Insurance [id number] 1950 Unknown [id number] 2.16.8 [id number] 1950 Unknown [id number] 2.16.8 [id number] 1950 Unknown [id number] 2.16.84 [id number] 1950 Unknown [id number] 2.16.84 [id number] 1950 Unknown [id number] 2.16.84 [id number] 1950 Unknown [id number] 2.16.84 [id number] 1950 Unknown [id number] 2.16.84 [id number] 1950 Unknown [id number] 2.16.84 [id number] Self-pay Self Pay [id number] Unknown [id number] Social History Date Type Detail [facility] Start: 1950 Sex Assigned At Female F [facility] Sex Assigned At [facility] Start: 07-02-2022 End: 10-19-2023 Tobacco smoking status Never smoked tobacco (finding) [facility] Tobacco smoking status Never [facility] Start: 05-03-2024 End: 07-17-2024 Sex Female (finding) [facility] Goals Date Patient Goal Desired Activity /State Functional Status Date Assessment Result Facility 07-02-2022 Functional Status N/A [facility] Clinical Notes 03-27-2021 to 05-03-2024 Note Date [...] Apr 10:48am Secondary hyperparathyroidism acute April 10:48am [facility] Work Phone: 1(993) 704-148601-12-2025 Evaluation note* Diagnosis Onset Date Resolution Status [...] 10:48am Viral URI acute June 29 1:17pm [facility] Work Phone: 1(434) 398-518401-30-2024 Evaluation note* Encounter Date Diagnosis Assessment Notes [...] stain. Monitor LFTs and lipid profile periodically. [facility] Other 07-31-2023 Evaluation note* Encounter Date Diagnosis [...] advised to have repeat in 5 yrs [facility] Other 03-28-2023 Note [id number]:127[facility] 07-17-2022 Hospital Discharge instructions Patient Education 07/17/2022 [...] Address: [facility] [address] [place] [address] Business (1) When: Unknown Comments:Call for any problems. [facility]03-28-2023 NoteCustom Cystoscopy ? Voiding after the [...] if you have a fever over 100 degrees.[facility] 07-02-2022 NoteChief Complaint Pt here for referral [...] [facility] [address], [place] [address]- Additional Instructions: schedule cysto, CHRIS Patient Education [...] tab(s), Oral, q6hr fluticasone 0.05 mg/inh Nasal [place], 2 spray(s), Nasal, Daily (more content not included)...[facility]:Result Comment: Electronically Signed By: Iván TOMLIN MD\.br\Date and Time Signed: 07/02/22 14:52 EDT\.br\Electronically Co-Signed By: Moira Estrada\.br\Date and Time Co-Signed: 07/02/22 14:50 [id number] Hospital Discharge instructions Patient Education 07/02/2022 14:22:27 [...] Follow these instructions at home: Medicines Take joyu-fyp-uwwygpb and prescription medicines only as told by [...] or the blood stops without treatment. Take fbik-rpp-qimuevw and prescription medicines only as told by your health care provider. Drink enough fluid to keep your urine clear or pale yellow. This information is not intended to replace advice given to you by your health care provider. Make sure you discuss any questions you have with your health care provider. Document Released: 04/08/2006 Document Revised: 09/02/2019 Document Reviewed: 05/11/2017 [employer] Patient Education 2019 Single Digits. Follow Up Care 05/31/2022 13:31:32 With:KELLY BLACKMON, Iávn Hsu, URL Address: [facility] [address] , [place] [address]- When: Unknown [facility]* Encounter Date Diagnosis Assessment [...] advised to have repeat in 5 yrs [facility] Other 08-02-2022 Evaluation note* Encounter Date Diagnosis [...] stain. Monitor LFTs and lipid profile periodically. [facility] Other 02-10-2022 Evaluation note* Encounter Date Diagnosis [...] stain. Monitor LFTs and lipid profile periodically. [facility] Other 12-06-2021 Evaluation note* Encounter Date Diagnosis [...] PCP. Mar, Dyslipidemia (ICD-10 - E78.5) Continue [facility]. Monitor LFTs and lipid profile periodically. [facility] Other Evaluation + Plan note Future Appointments Appointment Date:07/10/2022 11:30:00 AM Scheduled Provider: Location:[facility] Appointment Type:Urology CALL PAT FT Appointment Date:07/17/2022 08:45:00 AM Scheduled Provider: Location:[facility] Appointment Type:Urology FT Diagnostic Tests Pending * Urine Cytology ([facility]) 07/02/22 [facility] evaluation noteNo Assessments Information Available [facility] noteNo InformationNort [employer] Business Plan Other Evaluation noteNo assessment information available [facility] Work Phone: Evaluation note* Diagnosis Onset Date Resolution Status Maxillary sinusitis, acute a cute Anemia of renal disease acut e CKD (chronic kidney disease) stage 3, GFR 30-59 ml/min acute Hyperlipidemia acute [id number] acute Hypomagnesemia acute Secondary hyperparathyroidism acute [facility] Work Phone: Hisuytu general Narrative - Reported* Type Description Date Medical History HTN Medical History Hypothyroidism Medical History hyperlipidemia Medical History acid reflux Medical History anxiety Medical History PRE DIABETIC Medical History mixed hypercholestolemia Medical History CKD STAGE 3 Medical History INSOMNIA Surgical History hysterectomy, total with BSO Surgical History fallopian tube removed Hospitalization History see above hx Hospitalization History N&V [facility] Other [facility] general Narrative - Reported* Type Description Date [...] History see above hx Hospitalization History N&V [facility] Other Hospital course Narrative No data available for this section [facility] progress note No data available for this section [facility] Summary Purpose Family History Relationship Condition Age [...] disease) stage 3, GFR 30-59 ml/min Hyperlipidemia [id number] Hypomagnesemia Secondary hyperparathyroidism Chief Complaint Admit Date [...] Active Member Role Status Dates Yaritza Lopez SENIOR DEVOPS ENGINEER-C Primary Care Provider Active Start: May 05, [...] Inactive Member Role Status Dates Yaritza Lopez SENIOR DEVOPS ENGINEER-C Primary Care Provider Active Start: June 29, 2024 End: June 29, 2024 Marianne Ragsdale APRN Attending Provider Active Start: June 29, 2024 End: June 29, 2024 Team Status: Inactive Member Role Status Dates Yaritza Lopez SENIOR DEVOPS ENGINEER-C Primary Care Provider Active Start: July 17, 2024 End: July 17, 2024 Juani Gagnon APRN Attending Provider Active Start: July 17, 2024 End: July 17, 2024 INFORMATION SOURCE (unrecogn ized section and content) DATE CREATED AUTHOR 07/24/2022 [facility] DATE CREATED AUTHOR AUTHOR'S MAURICE ATDESI 09/05/2022 [facility] [facility] [...] BE BASED ON THE PRIMARY CLINICAL RECORDS. [facility] [employer] provides no warranty or guarantee of the accuracy or completeness of information in this document.
[2024-09-29 10:19] LABS: Basophils Absolute Auto 0.1 10^3/uL (0.0-0.1); Basophils Percent Auto 0.8 % (0.2-2.0); Eosinophils Absolute Auto 0.2 10^3/uL (0.0-0.7); Eosinophils Percent Auto 1.9 % (0.9-7.0); Hematocrit 37.4 % (36.0-48.0); Hemoglobin 11.9 g/dL (12.0-16.0); Immature Granulocytes Abs Auto 0.03 10^3/uL (0.00-0.03); Immature Granulocytes Pct Auto 0.4 % (0.0-0.5); Lymphocytes Absolute Auto 1.5 10^3/uL (1.2-3.8); Lymphocytes Percent Auto 18.8 % (20.5-60.0); Mean Corpuscular HGB Conc 31.8 g/dL (29.9-35.2); Mean Corpuscular Hemoglobin 28.1 pg (26.7-34.0); Mean Corpuscular Volume 88.2 fL (81.0-99.0); Mean Platelet Volume 12.5 fL (9.5-13.5); Monocytes Absolute Auto 0.5 10^3/uL (0.3-0.8); Monocytes Percent Auto 5.8 % (1.7-12.0); Neutrophils Absolute Auto 5.8 10^3/uL (1.4-6.5); Neutrophils Percent Auto 72.3 % (43.0-75.0); Platelet Count 138 10^3/uL (150-450); Red Blood Count 4.24 10^6/uL (4.20-5.40); Red Cell Distribution Width 14.6 % (11.0-15.0)
== END 2024-09-29 09:44 | disposition home or self-care (01) ==
LOC: LAB 09:47
PROVIDERS: PCP Nurse Practitioner Family; Visit Provider Nurse Practitioner Family
DX: R89.9 Unspecified abnormal finding in specimens from other organs, systems and tissues (principal)
CPT/HCPCS: 36415

== ENCOUNTER 2024-11-04 07:42 | Outpatient (OUT) | payer MEDICARE, SELFPAY ==
--- OUTSIDE RECORDS SUMMARY | 2024-09-03 06:30 | XMS_ITS ---
Author Organization [facility] in [place] Address [address] [place] [address] Care Team Providers Care Shirt Trimmer Name Role Phone Yaritza Osorio Primary Care Provider Allergies No Known Allergies REASON FOR VISIT 6mon- due for yearly labs Medications Medication SIG (Take, Route, Frequency, Duration) Notes Start Date End Date Status Ketoconazole 2 % 1 application Supervisor Shuttle Veneering ally Once a day for 14 days 03/05/2024 Active Levothyroxine Sodium 150 MCG TAKE 1 TABLET BY MOUTH EVERY DAY IN THE MORNING ON AN EMPTY STOMACH FOR 30 DAYS for 90 days Active Losartan Potassium 100 MG TAKE 1 TABLET BY MOUTH EVERY DAY for 90 Active Lovastatin 40 MG TAKE 1 TABLET BY YULISSA TH EVERY DAY AT BEDTIME FOR 90 DAYS for 90 Active Montelukast Sodium 10 MG TAKE 1 TABLET B Y MOUTH EVERYDAY AT BEDTIME Oral for 90 Days Active Alendronate Sodium 70 MG TAKE 1 TABLET B Y MOUTH ONCE A WEEK *WAIT 30 MINUTES BEFORE EATING AND STAY UPRIGHT FOR 30 MINUTES* for 84 Active buPROPion HCl ER (XL) 300 MG TAKE 1 TABLET BY MOUTH EVERY DAY for 90 Active Fluticasone Propionate 50 MCG/ACT USE 1 SPRAY IN EACH NOSTRIL TWICE A DAY for 90 Active Raloxifene HCl 60 MG TAKE 1 TABLET BY MO UTH EVERY DAY for 90 Active tiZANidine HCl 4 MG 1 tablet as needed O rally daily for 14 days 02/13/2023 Active Omeprazole 40 MG TAKE 1 CAPSULE BY MO UTH EVERY DAY for 90 Active Social History Tobacco Use: Social History Observation Description Date Details (start date - stop date) Never Smoker NA - NA Tobacco Use/Smoking Question Answer Notes Patient is a nonsmoker Tobacco Control (Standard) Question Answer Notes Tobacco use: Nonsmoker AUDIT-C (Standard) Question Answer Notes Did you have a drink containing alcohol in the p ast year? No Points 0 Interpretation Negative Vital Signs Weight 178 lbs 09/03/2024 Height 64 in 09/03/2024 Blood pressure systolic 134 mm Hg 09/04/19 25 Blood pressure diastolic 70 mm Hg 025 BMI 30.55 kg/m2 09/03/2024 Encounters Encounter Location Date Provider Diagnosis [facility] [address] [place] [address] 09/03/2024 Yaritza Osorio Hypothyroid E03.9 Assessments Encounter Date Diagnosis (ICD Code) Assessment Notes Treatment Notes Treatment Clinical Notes Section Notes 09/03/2024 Hypothyroid (ICD-10 - E03.9) continue med checking labs feels well Plan Of Treatment Treatment Notes Assessment Notes Hypothyroid continue med checking labs feels well Pending Test Test Name Order Date HEMOGLOBIN A1C (GLYCO) 09/03/2024 IRON, TOTAL 09/03/2024 LIPID PANEL (CHOL/TRIG/HDL/LDL) 09/04/19 25 VITAMIN D, 25 LEVEL (TOTAL) 09/03/2024 Insulin Level 09/03/2024 THYROID PANEL (T4/TSH/FREE T3) CMP (COMP MET HERNANDEZ) w/eGFR CKD-EPI 2024 CBC WITH DIFF 09/03/2024 Next Appt Details Follow Up: 6 Months,Roselyn mosquera son: Provider Name:Ayush Ledbetter, 12/23/2024 10:00:00 AM, [address] [place], [address], Provider Name:Yaritza jones, 03/04/2025 10:00:00 AM, [address] [place], [address], Progress Notes * Peg BURROUGHS ADOB:[birth year] (74 yo M)Acc No.[id number]:09/03/2024 Progress Note Patient: Peg BLANCHARD Provider: Meño Osorio ([facility]), [employer] CONSULTANT :1950 A ge:74 Y S ex:Male Date:09/03/2024 Address:[address] [place] [address], [address] [place], [id number] Check In:10:18 AM ESTCheck O ut:10:44 AM EST Subjective: * Chief Complaints: * 1 . 6mon- due for yearly labs. * HPI: D epression Screening: PHQ-2 (2015 Edition) L ittle interest or pleasure in doing things?�Not at all F eeling down, depressed, or hopeless? N ot at all T otal Score 0 G eneral: works 4 hrs in 2 weeks shingles for first time on right side of face going to get vaccine pulm and kidney dr mammograms. * ROS: G eneral/Constitutional: Fever d enies. H eadache d enies. W eight loss�denies. O phthalmologic: Discharge d enies. E ye Pain d enies. I tching and redness d enies. E NT: Nasal discharge d enies. N fili congestion d enies.�Sore throat d enies. C ardiovascular: Chest tightness/ heavy pressure d enies. R apid heart rate d enies. S welling of extremities d enies. C hest pain d enies. � R espiratory: Productive cough d enies. C hest pain d enies. C ough d enies. S hortness of breath d enies. W heezing d enies. � G astrointestinal: Abdominal pain d enies. C onstipation d enies. D ecreased appetite d enies. D iarrhea d enies. N ausea d enies. V omiting�denies. G enitourinary: Urinary incontinence d enies. P ainful urination d enies. M usculoskeletal: Back pain d enies. N liz pain d enies. M uscle aches d enies. S kin: Rash d enies. S kin lesion(s) d enies. � * Active Problem List K44.9 Hiatal hernia Modified On:03/06/2023W/U Status:confirmed R59.0 Mediastinal lymphade nopathy Modified On:06/25/2023 Status:confirmed R91.8 Multiple pulmonary n odules Modified On:06/25/2023 Status:confirmed Z86.16 History of COVID-19 Modified On:06/25/2023 Status:confirmed D72.19 Peripheral eosinophi dinorah Modified On:06/25/2023 Status:confirmed J30.2 Seasonal allergies Modified On:01/17/2023 Status:confirmed N18.9 Chronic kidney disea se Modified On:07/16/2023 Status:confirmed M54.50 [facility] Modified On:01/17/2023 Status:confirmed G47.00 Insomnia Modified On:01/17/2023 Status:confirmed I10 Hypertension Modified On:07/15/2023 Status:confirmed K57.90 Diverticulosis Modified On:01/17/2023 Status:confirmed K52.9 Colitis Modified On:01/17/2023 Status:confirmed K80.20 Cholelithiases Modified On:01/17/2023 Status:confirmed R73.09 Pre-diabetes Modified On:01/17/2023 Status:confirmed R73.9 Hyperglycemia Modified On:01/17/2023 Status:confirmed E28.39 Estrogen deficiency Modified On:01/17/2023 Status:confirmed J45.909 Allergic asthma Modified On:01/17/2023 Status:confirmed E03.9 Hypothyroid Modified On:01/17/2023 Status:confirmed F41.9 Anxiety Modified On:01/17/2023 Status:confirmed E78.5 Hyperlipidemia Modified On:01/17/2023 Status:confirmed M81.0 Osteoporosis Modified On:01/17/2023 Status:confirmed R06.02 Shortness of breath Modified On:04/02/2023 Status:confirmed E21.3 Hyperparathyroidism Modified On:05/13/2024 Status:confirmed * Medical History: S easonal allergies, Chronic kidney disease, Low back pain at multiple sites, Insomnia, Hypertension, Diverticulosis, Colitis, Cholelithiases, Pre-diabetes, Hyperglycemia, Estrogen deficiency, Allergic asthma, Hypothyroid, Anxiety, Hyperlipidemia, Osteoporosis, Multiple pulmonary nodules, COVID-19, Mediastinal lymphadenopathy, Hiatal hernia, Peripheral eosinophilia, History of COVID-19. * Surgical History: H ysterectomy , cholecystectomy 1975. * Hospitalization/Major Diagno stic Procedure: [facility] ER-Vomiting 03/04/2023, [facility] 03/26/2023. * Family History: F ather: , COPD. M other: , osteoporosis, Parkinsons. B rother(s): alive, diagnosed with Unspecified essential hypertension. S ister(s): alive. S on(s): alive. Daughter(s): alive, diagnosed with Unspecified essential hypertension. 3 brother(s) , 1 sister(s) - healthy. 1 son(s) , 1 daughter(s) - healthy. . * Social History: T obacco Use: T obacco Control (Standard) T obacco use: N onsmoker Electronic Cigarette use C urrent user N o Tobacco Use/Smoking P atient is a n onsmoker D rug/Alcohol: A AMANDA-C (Standard) D id you have a drink containing alcohol in the past year? N o P oints 0 I nterpretation N egative * Medications: T aking Alendronate Sodium 70 MG Tablet TAKE 1 TABLET BY MOUTH ONCE A WEEK *WAIT 30 MINUTES BEFORE EATING AND STAY UPRIGHT FOR 30 MINUTES* , Taking buPROPion HCl ER (XL) 300 MG Tablet Extended Release 24 Hour TAKE 1 TABLET BY MOUTH EVERY DAY , Taking Fluticasone Propionate 50 MCG/ACT Suspension USE 1 SPRAY IN EACH NOSTRIL TWICE A DAY , Taking Ketoconazole 2 % Cream 1 application Externally Once a day , Notes: Cream 2%: Apply once daily to cover the affected and immediate surrounding area for 2 weeks., Taking Levothyroxine Sodium 150 MCG Tablet TAKE 1 TABLET BY MOUTH EVERY DAY IN THE MORNING ON AN EMPTY STOMACH FOR 30 DAYS , Taking Losartan Potassium 100 MG Tablet TAKE 1 TABLET BY MOUTH EVERY DAY , Taking Lovastatin 40 MG Tablet TAKE 1 TABLET BY MOUTH EVERY DAY AT BEDTIME FOR 90 DAYS , Taking Montelukast Sodium 10 MG Tablet TAKE 1 TABLET BY MOUTH EVERYDAY AT BEDTIME Oral , Taking Omeprazole 40 MG Capsule Delayed Release TAKE 1 CAPSULE BY MOUTH EVERY DAY , Taking Raloxifene HCl 60 MG Tablet TAKE 1 TABLET BY MOUTH EVERY DAY , Taking tiZANidine HCl 4 MG Tablet 1 tablet as needed Orally daily , Medication List reviewed and reconciled with the patient * Allergies: N .K.D.A. Objective: * Vitals: W t:178lbs, Ht: 64 in, BP:134/70mm Hg, BMI:30.55Index, Ht-cm: 162.56 cm, Wt-k.74 kg. * Examination: G eneral Examinations: GENERAL APPEARANCE: a lert and oriented, i n no acute distress. EYES: c onjunctiva normal, sclera non-icteric. NOSE: n ormal external appearance. LUNGS: c lear to auscultation bilaterally. CARDIO: r egular rate and rhythm, S1, S2 normal. ABDOMEN: s oft, nontender. MUSCULOSKELETAL: G ait and station normal. SKIN: w arm and dry. Assessment: * Assessment: 1. H ypothyroid - E03.9 (Primary) Plan: * Treatment: * Preventive Medicine: Screenings/Counseling: B MT ACTION PLAN Above Normal BMI Follow-up D ietary management education, guidance, and counseling F ALL RISK SCREENING Fall Risk Assessment: N o falls in the past year * Follow Up: 6 Months,prn * * Electronically signed by Yolanda Osorio , ALYSSA, TUBE ROOM CASHIER.[employer] CONSULTANT.[id number] on 09/04/2024 at 09:12 AM EDT Sign off status: Completed Visit Status: C HK (Check Out) true * Provider: Meño Osorio ([facility]), [employer] CONSULTANT Date: 0 09/03/2024 Generated for Janet mackey/Donna/eTransmitting on: 0 11/04/2024 07:45 AM EDT History and Physical Notes * HPI (History of Present Illness) Category Sub-Category Detail Notes Category Not es General works 4 hrs in 2 weeks shingles for first time on right side of face going to get vaccine pulm and kidney dr mammograms Depression Screening PHQ-2 (2015 Edition) Little interest or pleasure in doing things?: Not at all Feeling down, depressed, or hopeless?: N ot at all Total Score: 0 Examination Category Sub-Category Detail Notes Category Not es General Examinations GENERAL APPEARANCE: alert a nd oriented, in no acute distress EYES: conjunctiva normal, sclera non-icteric EARS: NOSE: normal external appe arance THROAT: CARDIO: regular rate and rhy thm, S1, S2 normal LUNGS: clear to auscultatio n bilaterally ABDOMEN: soft, nontender SKIN: warm and dry BACK: MUSCULOSKELETAL: Gait and station nor mal LYMPH NODES:
--- OUTSIDE RECORDS SUMMARY | 2024-09-10 11:14 | XMS_ITS ---
Author Organization [facility] [place] Address [address] [place] [address] Care Team Providers Care Billing And Accounting Staff Assistant Name Role Phone Yaritza Osorio Primary Care Provider REASON FOR VISIT labs Problems Problem Type SNOMED Code ICD Code Onset Dates Problem Status W/U Status Risk Notes Problem Laboratory test result abnormal ([id number]) Abnormal laboratory test (R89.9) Active confirmed Encounters Encounter Location Date Provider Diagnosis [facility] [address] [place] [address] 09/10/2024 Yaritza Osorio Abnormal laboratory test R89.9 Assessments Encounter Date Diagnosis (ICD Code) Assessment Notes Treatment Notes Treatment Clinical Notes Section Notes 09/10/2024 Abnormal laboratory test (ICD-10 - R89.9) Plan Of Treatment Pending Test Test Name Order Date CBC W/AUTO DIFF 09/10/2024 Next Appt Details Provider Name:Ayush Ledbetter, 12/23/2024 10:00:00 AM, [address] [place], [address], Provider Name:Yaritza jones, 03/04/2025 10:00:00 AM, [address] [place], [address], Progress Notes * Peg BURROUGHS ADOB:[birth year] (74 yo F)Acc No.[id number]:09/10/2024 Patient: Peg BLANCHARD :1950 A ge:74 Y S ex:Female Address:[address] [place] [id number] Subjective: * Chief Complaints: * L abs * Medical History: * Surgical History: * Hospitalization/Major Diagno stic Procedure: * Medications: Objective: * Vitals: * Physical Examination: Assessment: * Assessment: 1. A bnormal laboratory test - R89.9 (Primary) Plan: * Treatment: * Procedure Codes: * true * Date: Generated for Janet mackey/Donna/eTransmitting on: 0 11/04/2024 07:45 AM EDT
--- OUTSIDE RECORDS SUMMARY | 2024-10-02 08:19 | XMS_ITS ---
Author Organization The [facility] [place] Address [address] [place] [address] Care Team Providers Care Technicians And Trades Workers Name Role Phone Yaritza Osorio Primary Care Provider REASON FOR VISIT plts low Encounters Encounter Location Date Provider Diagnosis [facility] [address] [place] [address] 10/02/2024 Yaritza Osorio Abnormal laboratory test R89.9 Assessments Encounter Date Diagnosis (ICD Code) Assessment Notes Treatment Notes Treatment Clinical Notes Section Notes 10/02/2024 Abnormal laboratory test (ICD-10 - R89.9) Plan Of Treatment Pending Test Test Name Order Date CBC W/AUTO DIFF 10/02/2024 Next Appt Details Provider Name:Ayush Ledbetter, 12/23/2024 10:00:00 AM, [address] [place], [address], Provider Name:Yaritza jones, 03/04/2025 10:00:00 AM, [address] [place], [address], Progress Notes * Peg BURROUGHS ADOB:[birth year] (74 yo F)Acc No.[id number]:10/02/2024 Patient: Zakia Peg GONZALEZ :1950 A ge:74 Y S ex:Female Address:[address] [place] [id number] Subjective: * Chief Complaints: * P lts low * Medical History: * Surgical History: * Hospitalization/Major Diagno stic Procedure: * Medications: Objective: * Vitals: * Physical Examination: Assessment: * Assessment: 1. A bnormal laboratory test - R89.9 (Primary) Plan: * Treatment: * Procedure Codes: * true * Date: Generated for Janet mackey/Donna/Gerardosmlashaun on: 0 11/04/2024 07:46 AM EDT
--- OUTSIDE RECORDS SUMMARY | 2024-11-04 07:45 | XMS_ITS | Patient Health Record ---
Author Organization The [facility] Address [address] [place] [address] Care Team Providers Care Coat Agent Name Role Phone Carlos Mina Primary Care Provider Vickie Morris Unavailable Allergies No Known Allergies Reason For Referral No Information Medications Medication SIG (Take, Route, Frequency, Duration) Notes Start Date End Date Status Magnesium Oxide 400 MG 1 tablet as neede d Orally Once a day Active Montelukast Sodium 10 MG 1 tablet Orally Once a day Active Levothyroxine Sodium 150 MCG 1 tab(s) orally once a day Active Multivitamin - 1 tablet Orally Once a day Active Calcium Active Alendronate Sodium 70 MG 1 tablet 30 min utes before the first food, beverage or medicine of the day with plain water orally once a day Active Fluticasone Propionate 50 MCG/ACT 1 spray(s) intranasally once a day Active Raloxifene HCl 60 MG 1 tab(s) orally onc e a day Active Losartan Potassium 100 MG 1 tab(s) orall y once a day Active Wellbutrin XL 300 MG 1 tab(s) orally sp ry 24 hours Active Lovastatin 40 MG 1 tab(s) orally once a day Active Omeprazole 40 MG 1 capsule 30 minutes before morning meal orally once a day Active Vitamin D3 Active Immunizations Vaccine Route Administration Date Status Comme nts Pneumonia ( Given in the Past) Unspecified Unknown 04/12/2020 Administered vaccinated previously Pneumonia ( Given in the Past) Unspecified Unknown 12/12/2021 Administered Pneumonia ( Given in the Past) Unspecified Unknown 03/26/2023 Administered Pneumonia: Prevnar 20 Unknown 11/24/2021 Contraindications z9 Flulaval Quad 0.5mL PFS (0.5mL Admin) 6 months & older Unknown 03/16/2019 Refused z9 Fluzone High Dose PFS (0.5mL Admin) 65 y/o & older IM Intramuscular 02/16/2019 Administered [id number] Quad High Dose PFS (0.7 mL Admin) 65 y/o & older Unknown 04/12/2020 Contraindications z2022 Fluzone Quad HIGH DOSE PFS (0.7 mL Admin) 65 y/o & older Unknown 11/24/2021 Others z2022 Fluzone Quad HIGH DOSE PFS (0.7 mL Admin) 65 y/o & older Unknown 03/09/2022 Contraindications Social History Tobacco Use: Social History Observation Description Date Details (start date - stop date) Never Smoker NA - NA Tobacco Control (Standard) Question Answer Notes Tobacco use: Nonsmoker Problems Problem Type SNOMED Code ICD Code Onset Dates Problem Status W/U Status Risk Notes Problem Allergic rhinitis (05047260) Allergic rhinitis (J30.9) Active confirmed Problem Hypertension (90641412) Hypertension (I10) Active confirmed Problem Asthma (945242937) Asthma (J45.909) Active confirmed Problem Hypothyroid (48072481) Hypothyroid (E03.9) Active confirmed Problem Gastroesophageal reflux disease (535121416) GERD (gastroesophage al reflux disease) (K21.9) Active confirmed Problem Chronic sinusitis (33510448) Chronic sinusitis (J32.9) Active confirmed Problem Migraine (27136093) Migraine (G43.909) Active confirmed Problem [id number] Obesity (BMI 30.0-34.9) (E66.9) Active confirmed Problem Osteoporosis (65363627) Osteoporosis (M81.0) Active confirmed Problem 288130688 Asthma with bronchitis (J45.909) Active confirmed Problem Difficulty sleeping (039727374) Sleep difficulties (G47.9) Active confirmed Problem Overweight (696407224) Overweight (BMI 25.0-29.9) (E66.3) Active confirmed Problem Elevated blood pressure reading without diagnosis of hypertension (235084433) Elevated blood pressure reading in office without diagnosis of hypertension (R03.0) Active confirmed Problem History of disease caused by Severe acute respiratory syndrome coronavirus 2 (situation) (803288495710994915 ) Personal history of covid-19 (Z86.16) Active confirmed Diagnosis 3618314 Acute non-recurrent pansinusitis (J01.40) Active confirmed Finding BMI 25-29 - overweight (617950748) BMI 27.0-27.9,adult (Z68.27) Active confirmed Diagnosis 969186318 Non-recurrent acute serous otitis media of both ears (H65.03) Active confirmed Vital Signs Temperature 98.2 degrees Fahrenheit 01/22/2024 Respiratory Rate 17 /min 01/22/2024 Blood pressure diastolic 64 mm Hg 01/22/2024 Height 064 in 01/22/2024 Blood pressure systolic 112 mm Hg 01/22/2024 Weight 174.6 lbs 01/22/2024 BMI 29.97 kg/m2 01/22/2024 Encounters Encounter Location Date Provider Diagnosis [address] [place] [address] 11/28/2023 Vickie Castro Acute non-recurrent pansinusitis J01.40 and Obesity (BMI 30.0-34.9) E66.9 [address] [place] [address] 01/22/2024 Vickie Castro Acute non-recurrent pansinusitis J01.40 ; Non-recurrent acute serous otitis media of right ear H65.01 ; Overweight (BMI 25.0-29.9) E66.3 and Flu vaccine refused Z28.21 Assessments Encounter Date Diagnosis (ICD Code) Assessment Notes Treatment Notes Treatment Clinical Notes Section Notes 11/28/2023 Obesity (BMI 30.0-34.9) (ICD-10 - E66.9) Learning About Healthy Weight material was published Continue healthy eating and exercise. [facility] via a telehealth visit at [email or web address] telenutrition to help with dietary changes to lower BMI. 11/28/2023 Acute non-recurrent pansinusitis (ICD-10 - J01.40) Acute Sinusitis: Care Instructions material was published, The Sinuses: Anatomy Sketch material was published Complete the entire course of antibiotics as prescribed, even when symptoms have improved, to prevent a relapse of infection and the development of antibiotic resistance. Follow up in the clinic or with PCP in 4-5 days if no improvement or worsening of symptoms. Please follow up with PCP or notify [facility] if no resolution of symptoms at 10 days after onset or if worsening symptoms to discuss further treatment options. Symptomatic measures you can try to help with symptoms include adequate rest and hydration, warm facial packs, steam inhalation, and OTC medications. Acetaminophen/Tylen ol or Ibuprofen can be used for pain relief. Decongestants may provide symptomatic relief of nasal congestion. Nasal decongestants such as Afrin (Oxymetazoline) are often preferred over oral agents (such as Pseudoephedrine or Phenylephrine) because of increased potency and less risk of adverse effects. However, decongestant nasal sprays should not be used for more than 3-5 days to prevent rebound congestion. Intranasal saline irrigation or sprays may also be useful for treating congestion by reducing inflammation and thinning mucus. It is important to look at the individual ingredients of all OTC medications you are taking for because many OTC medications contain the same drug or the same class of drugs. Patients should be instructed to notify their healthcare provider if symptoms do not start improving after 10 days of symptomatic treatment. Pain and fever should begin to improve within 2 to 3 days. Nasal obstruction and drainage may take a week or more to improve. Patients should be advised to avoid cigarette smoke, environmental pollutants and allergens, alcohol, air travel, and diving in deep water. Please increase hydration. Patient/parent agreeable and verbalized understanding. All questions answered. 01/22/2024 Acute non-recurrent pansinusitis (ICD-10 - J01.40) Acute Sinusitis: Care Instructions material was published, The Sinuses: Anatomy Sketch material was published Please follow up with PCP or notify [facility] if no resolution of symptoms at 10 days after onset or if worsening symptoms to discuss further treatment options. Symptomatic measures you can try to help with symptoms include adequate rest and hydration, warm facial packs, steam inhalation, and OTC medications. Acetaminophen/Tylen ol or Ibuprofen can be used for pain relief. Decongestants may provide symptomatic relief of nasal congestion. Nasal decongestants such as Afrin (Oxymetazoline) are often preferred over oral agents (such as Pseudoephedrine or Phenylephrine) because of increased potency and less risk of adverse effects. However, decongestant nasal sprays should not be used for more than 3-5 days to prevent rebound congestion. Intranasal saline irrigation or sprays may also be useful for treating congestion by reducing inflammation and thinning mucus. It is important to look at the individual ingredients of all OTC medications you are taking for because many OTC medications contain the same drug or the same class of drugs. Patients should be instructed to notify their healthcare provider if symptoms do not start improving after 10 days of symptomatic treatment. Pain and fever should begin to improve within 2 to 3 days. Nasal obstruction and drainage may take a week or more to improve. Patients should be advised to avoid cigarette smoke, environmental pollutants and allergens, alcohol, air travel, and diving in deep water. Please increase hydration. Patient/parent agreeable and verbalized understanding. All questions answered. 01/22/2024 Non-recurrent acute serous otitis media of right ear (ICD-10 - H65.01) Complete the entire course of antibiotics as prescribed, even when symptoms have improved, to prevent a relapse of infection and the development of antibiotic resistance. Follow up in the clinic or with PCP in 4-5 days if no improvement or worsening of symptoms. 01/22/2024 Overweight (BMI 25.0-29.9) (ICD-10 - E66.3) Learning About Healthy Weight material was published Continue healthy eating and exercise. [facility] via a telehealth visit at [email or web address] telenutrition to help with dietary changes to lower BMI. 01/22/2024 Flu vaccine refused (ICD-10 - Z28.21) 11/28/2023 Other Amoxicillin/Clavula obi Oral Tablet (AMOXICILLIN/CLAVUL ANIC ACID - ORAL) material was published Visit summary given to and discussed with patient and/or parent who verbalizes understanding and agreement with plan of care Thank you for your visit. Please look for the satisfaction survey that you will receive via email. We look forward to receiving your feedback regarding your experience at [facility]. 01/22/2024 Other Visit summary given to and discussed with patient and/or parent who verbalizes understanding and agreement with plan of care Thank you for your visit. Please look for the satisfaction survey that you will receive via email. We look forward to receiving your feedback regarding your experience at [facility]. Plan Of Treatment No Information Insurance Providers Payer Name Payer Address Payer Phone Subscriber Number Group Number Insured Name Patient Relationship to Insured Coverage Start Date Coverage End Date [employer] [address] [address] [place] [phone] [id number] Peg Burroughs Self - patient is the insured Medical (General) History Medical History History ICD Code Asthma J45.909 Allergic rhinitis J30.9 Hypertension I10 Hypothyroid E03.9 Migraine G43.909 Osteoporosis M81.0 GERD (gastroesophageal reflux disease) K 21.9 Sleep difficulties G47.9 Personal history of covid-19 Z86.16 Kidney disease N28.9 Surgical History Surgery Date(Month/Year) cyst removal Hysterectomy age 35 Hospitalization History Reason Date(Month/Year) Stomach issues - secondary to out of cou ntry travel 06/2018 COVID 02/2023 surgeries
--- OUTSIDE RECORDS SUMMARY | 2024-11-04 07:46 | XMS_ITS | Patient Health Record ---
Author Organization [facility] in [place] Address [address] [place] [address] Care Team Providers Care Vpk Teacher Name Role Phone Yaritza Osorio Primary Care Provider Ayush Ledbetter Unavailable [phone] Allergies No Known Allergies Results Component Value Reference Range Notes UA RANDOM W or MICROSCOPIC Reviewed date:05/05/2024 12:46:20 PM Interpretation: Performing Lab: Notes/Report: [facility] , Color Urine YELLOW YELLOW Clarity Urine CLEAR CLEAR Specific Brea Urine >=1.030 1.005-1.025 pH Urine 5.5 5.0-9.0 Protein Urine TRACE NEG/TRACE mg/dL Glucose Urine UA NEGATIVE NEGATIVE mg/dL Bilirubin Urine NEGATIVE NEGATIVE Ketones Urine NEGATIVE NEGATIVE mg/dL Blood Urine SMALL NEGATIVE Nitrite Urine NEGATIVE NEGATIVE Urobilinogen Urine 0.2 0.2-1.0 EU/dL Leukocyte Esterase Urine SMALL NEGATIVE WBC Urine 10-20 NONE SEEN #/HPF RBC Urine 2-5 0-2 #/HPF Bacteria Urine SMALL NONE SEEN #/HPF Mucus Urine TRACE NONE SEEN Squamous Epithelial Cell Urine MODERATE NONE/RARE #/LPF Performing Lab: see note ML - [facility] LB CBC AUTO DIFF Reviewed date:10/02/2024 12:20:24 PM Interpretation: Performing Lab: Notes/Report: [facility] , White Blood Count 8.0 4.0-11.0 10 3/uL Red Blood Count 4.24 4.20-5.40 10 6/uL Hemoglobin 11.9 12.0-16.0 g/dL Hematocrit 37.4 36.0-48.0 % Mean Corpuscular Volume 88.2 81.0-99.0 fL Mean Corpuscular Hemoglobin 28.1 26.7-34.0 pg Mean Corpuscular HGB Conc 31.8 29.9-35.2 g/dL Red Cell Distribution Width 14.6 11.0-15.0 % Platelet Count 138 150-450 10 3/uL Mean Platelet Volume 12.5 9.5-13.5 fL Neutrophils Percent Auto 72.3 43.0-75.0 % Lymphocytes Percent Auto 18.8 20.5-60.0 % Monocytes Percent Auto 5.8 1.7-12.0 % Eosinophils Percent Auto 1.9 0.9-7.0 % Basophils Percent Auto 0.8 0.2-2.0 % Immature Granulocytes Pct Auto 0.4 0.0-0.5 % Neutrophils Absolute Auto 5.8 1.4-6.5 10 3/uL Lymphocytes Absolute Auto 1.5 1.2-3.8 10 3/uL Monocytes Absolute Auto 0.5 0.3-0.8 10 3/uL Eosinophils Absolute Auto 0.2 0.0-0.7 10 3/uL Basophils Absolute Auto 0.1 0.0-0.1 10 3/uL Immature Granulocytes Abs Auto 0.03 0.00-0.03 10 3/uL Performing Lab: see note ML - [facility] LB VITAMIN D 25 [place] Reviewed date:09/07/2024 04:23:17 PM Interpretation: Performing Lab: Notes/Report: [facility] , Vitamin D 66.8 <20 ng/mL Vit D deficient 20-<30 ng/mL Vit D insufficient 30-100 ng/mL Vit D sufficient >100 ng/mL Potential Toxicity Performing Lab: see note ML - [facility] LB TSH Reviewed date:09/07/2024 04:23:17 PM Interpretation: Performing Lab: Notes/Report: [facility] , Thyroid Stimulating Hormone 0.618 0.358-3.740 uIU/mL Performing Lab: see note ML - [facility] LB T4 Reviewed date:09/07/2024 04:23:17 PM Interpretation: Performing Lab: Notes/Report: [facility] , T4 Thyroxine 10.80 4.80-13.90 ug/dL Performing Lab: see note ML - [facility] LB PROF 14(COMP METB) Reviewed date:09/07/2024 04:23:17 PM Interpretation: Performing Lab: Notes/Report: [facility] , Sodium 140 136-145 mmol/L Potassium 4.0 3.5-5.1 mmol/L Chloride 104 98-107 mmol/L Carbon Dioxide 27.0 21.0-32.0 mmol/L Anion Gap 13.0 Glucose 104 74-106 mg/dL Blood Urea Nitrogen 22.0 7.0-18.0 mg/dL Creatinine 1.47 0.55-1.02 mg/dL Estimated GFR ( Shahana 42 >=60 mL/min/1.73m 2 Estimated GFR (Non- Nury 35 >=60 mL/min/1.73m 2 BUN Creatinine Ratio 15.0 Calcium 8.6 8.5-10.1 mg/dL Bilirubin Total 0.3 0.2-1.0 mg/dL Aspartate Amino Transferase 14 15-37 U/L Alanine Aminotransferase 17 14-59 U/L Alkaline Phosphatase 64 46-116 U/L Total Protein 7.7 6.4-8.2 g/dL Albumin Level 2.9 3.4-5.0 g/dL Globulin 4.8 Albumin Globulin Ratio 0.6 Performing Lab: see note ML - [facility] LB LIPID PROFILE Reviewed date:09/07/2024 04:23:17 PM Interpretation: Performing Lab: Notes/Report: [facility] , Triglycerides 212 <=150 mg/dL Cholesterol 191 <=200 mg/dL HDL Cholesterol 52 40-60 mg/dL > or =60 mg/dl - LOW CARDIOVASCULAR RISK <40 mg/dl - HIGH CARDIOVASCULAR RISK LDL Cholesterol Calculated 97.0 <100 mg/dl OPTIMAL 100-129 mg/dl NEAR OR ABOVE OPTIMAL 130-159 mg/dl BORDERLINE HIGH 160-189 mg/dl HIGH >190 mg/dl VERY HIGH VLDL CHOLESTEROL 42.4 Chol HDL Ratio 3.7 3.3 - 4.4 LOW RISK 4.4 - 7.1 AVERAGE RISK 7.1 - 11.0 MODERATE RISK >11.0 HIGH RISK Performing Lab: see note ML - [facility] LB IRON Reviewed date:09/07/2024 04:23:17 PM Interpretation: Performing Lab: Notes/Report: [facility] , Iron 51.0 50.0-170.0 ug/dL Performing Lab: see note ML - [facility] LB INSULIN Reviewed date:09/08/2024 10:59:32 AM Interpretation: Performing Lab: Notes/Report: [facility] , Insulin 23.6 2.6-24.9 uIU/mL Performed at: [facility] [address] [id number] Infection Control Nurse: Rich Camejo PhD, Phone: [phone] Performing Lab: see note - [facility] LB GLYCOHEMOGLOBIN A1C Reviewed date:09/07/2024 04:23:17 PM Interpretation: Performing Lab: Notes/Report: [facility] , Glycohemoglobin A1C 6.3 4.5-6.2 % ADA RECOMMENDED LIMIT 4.0 - 6.0 ADA THERAPEUTIC TARGET < 7.0 ACTION SUGGESTED > 7.0 Estimated Average Glucose 134 Performing Lab: see note ML - [facility] LB FREE T3 Reviewed date:09/07/2024 04:23:17 PM Interpretation: Performing Lab: Notes/Report: [facility] , Free T3 2.38 2.18-3.98 pg/mL Performing Lab: see note ML - [facility] LB CBC AUTO DIFF Reviewed date:09/07/2024 04:23:17 PM Interpretation: Performing Lab: Notes/Report: [facility] , White Blood Count 8.1 4.0-11.0 10 3/uL Red Blood Count 4.46 4.20-5.40 10 6/uL Hemoglobin 12.5 12.0-16.0 g/dL Hematocrit 39.3 36.0-48.0 % Mean Corpuscular Volume 88.1 81.0-99.0 fL Mean Corpuscular Hemoglobin 28.0 26.7-34.0 pg Mean Corpuscular HGB Conc 31.8 29.9-35.2 g/dL Red Cell Distribution Width 14.8 11.0-15.0 % Platelet Count 142 150-450 10 3/uL Mean Platelet Volume 12.6 9.5-13.5 fL Neutrophils Percent Auto 63.8 43.0-75.0 % Lymphocytes Percent Auto 24.9 20.5-60.0 % Monocytes Percent Auto 7.5 1.7-12.0 % Eosinophils Percent Auto 2.5 0.9-7.0 % Basophils Percent Auto 0.9 0.2-2.0 % Immature Granulocytes Pct Auto 0.4 0.0-0.5 % Neutrophils Absolute Auto 5.2 1.4-6.5 10 3/uL Lymphocytes Absolute Auto 2.0 1.2-3.8 10 3/uL Monocytes Absolute Auto 0.6 0.3-0.8 10 3/uL Eosinophils Absolute Auto 0.2 0.0-0.7 10 3/uL Basophils Absolute Auto 0.1 0.0-0.1 10 3/uL Immature Granulocytes Abs Auto 0.03 0.00-0.03 10 3/uL Performing Lab: see note - [facility] CBC no Diff (Hemogram) Reviewed date:05/05/2024 12:46:20 PM Interpretation: Performing Lab: Notes/Report: [facility] , White Blood Count 6.7 4.0-11.0 10 3/uL Red Blood Count 4.40 4.20-5.40 10 6/uL Hemoglobin 12.0 12.0-16.0 g/dL Hematocrit 39.3 36.0-48.0 % Mean Corpuscular Volume 89.3 81.0-99.0 fL Mean Corpuscular Hemoglobin 27.3 26.7-34.0 pg Mean Corpuscular HGB Conc 30.5 29.9-35.2 g/dL Red Cell Distribution Width 13.8 11.0-15.0 % Platelet Count 146 150-450 10 3/uL Mean Platelet Volume 12.5 9.5-13.5 fL Performing Lab: see note - [facility] LB VITAMIN D 25 [place] Reviewed date:05/05/2024 12:46:20 PM Interpretation: Performing Lab: Notes/Report: [facility] , Vitamin D 76.3 <20 ng/mL Vit D deficient 20-<30 ng/mL Vit D insufficient 30-100 ng/mL Vit D sufficient >100 ng/mL Potential Toxicity Performing Lab: see note [place] LB URINE T PROTEIN CREAT RATIO Reviewed date:05/05/2024 12:46:20 PM Interpretation: Performing Lab: Notes/Report: [facility] , Total Protein Urine Random 38.9 <=11.9 mg/dL Creatinine Urine Random 232.52 20.00-30 0.00 mg/dL Protein Creatinine Ratio Urine 0.17 Performing Lab: see note ML - [facility] URIC ACID SERUM Reviewed date:05/05/2024 12:46:20 PM Interpretation: Performing Lab: Notes/Report: [facility] , Uric Acid 5.1 2.6-6.0 mg/dL Performing Lab: see note ML - [facility] RENAL FUNCTION PANEL Reviewed date:05/05/2024 12:46:20 PM Interpretation: Performing Lab: Notes/Report: [facility] , Sodium 143 136-145 mmol/L Potassium 4.0 3.5-5.1 mmol/L Chloride 105 98-107 mmol/L Carbon Dioxide 28.9 21.0-32.0 mmol/L Anion Gap 13.1 Glucose 104 74-106 mg/dL Blood Urea Nitrogen 16.0 7.0-18.0 mg/dL Creatinine 1.47 0.55-1.02 mg/dL Estimated GFR ( Shahana 42 >=60 mL/min/1.73m 2 Estimated GFR (Non- Nury 35 >=60 mL/min/1.73m 2 BUN Creatinine Ratio 10.9 Calcium 8.3 8.5-10.1 mg/dL Phosphorus 3.1 2.6-4.7 mg/dL Albumin Level 3.1 3.4-5.0 g/dL Performing Lab: see note ML - [facility] MAGNESIUM Reviewed date:05/05/2024 12:46:20 PM Interpretation: Performing Lab: Notes/Report: [facility] , Magnesium 2.0 1.8-2.4 mg/dL Performing Lab: see note ML - [facility] LB IRON AND TIBC Reviewed date:05/05/2024 12:46:20 PM Interpretation: Performing Lab: Notes/Report: [facility] , Iron 40.0 50.0-170.0 ug/dL Total Iron Binding Capacity 242.0 250.0-450.0 ug/dL Percent Iron Saturation 16.5 Performing Lab: see note ML - [facility] FERRITIN Reviewed date:05/05/2024 12:46:20 PM Interpretation: Performing Lab: Notes/Report: [facility] , Ferritin 93.0 8.0-252.0 ng/mL Performing Lab: see note ML - [facility] LB MM tomosynthesis screening B I Reviewed date:03/05/2024 02:31:09 PM Interpretation: Performing Lab: Notes/Report: Source Facility: [facility]-[address] [place] [address] [place] [address] Mammography Report Signed Patient: KAREEN BURROUGHS MR#: [id number] : 1950 Acct:[id number] Age/Sex: 73 / F ADM Date: 03/04/24 Loc: MAMMO Attending Dr: YARITZA OSORIO Ordering Physician: YARITZA OSORIO Results: Date of Service: 03/04/24 Follow Up: Procedure(s): MM tomosynthesis screening BI Accession Number(s): [id number] cc: YARITZA OSORIO Patient Name: KAREEN BURROUGHS MR#: [id number] : 1950 Exam Date: 03/04/2024 Ordering Doctor: YARITZA OSORIO [facility] RADIOLOGY REPORT PROCEDURE: MM TOMOSYNTHESIS SCREENING BI COMPARISON: MG MAMM SCREEN 3D KUN CAD, 09/06/2022. MG MAMM SCREEN 3D KUN CAD, 09/04/2021. INDICATIONS: Screening for malignant neoplasm Calculator Name NCI Breast Cancer Risk Assessment Tool 5 Year Breast Cancer Risk 1.60% Lifetime Breast Cancer Risk 4.30% Personal Breast Cancer No Personal Ovarian Cancer No Treatments None Family Cancers None LOCATION: [facility] BREAST COMPOSITION: There are scattered areas of fibroglandular density. FINDINGS: DIAGNOSTIC CATEGORY 1--NEGATIVE. NO CHANGE FROM COMPARISON ASSESSMENT. Scattered benign-appearing calcifications are present. Scattered benign-appearing lymph nodes are present. RIGHT BREAST: No significant suspicious finding. LEFT BREAST: No significant suspicious finding. RECOMMENDATIONS: ROUTINE MAMMOGRAM AND CLINICAL EVALUATION IN 12 MONTHS. PLEASE NOTE: A NORMAL MAMMOGRAM DOES NOT EXCLUDE THE POSSIBILITY OF BREAST CANCER. A CLINICALLY SUSPICIOUS PALPABLE LUMP SHOULD BE BIOPSIED. Dictated by: Jose Hudson MD on 03/04/2024 at 10:51 Approved by: Jose Hudson MD on 03/04/2024 at 10:52 Dictated By: Jose Hudson M.D. Signed By: 03/04/241052 DD/ 51 TD/TT: [employer]: [place] [address] Mammography Report Signed Patient: KAREEN BURROUGHS MR#: [id number] : 1950 Acct:[id number] Age/Sex: 73 / F ADM Date: 03/04/24 Loc: MAMMO Attending Dr: YARITZA OSORIO Ordering Physician: YARITZA OSORIO Results: Date of Service: 03/04/24 Follow Up: Procedure(s): MM tomosynthesis screening BI Accession Number(s): [id number] cc: YARITZA OSORIO Patient Name: KAREEN BURROUGHS MR#: [id number] : 1950 Exam Date: 03/04/2024 Ordering Doctor: YARITZA OSORIO [facility] RADIOLOGY REPORT PROCEDURE: MM TOMOSYNTHESIS SCREENING BI COMPARISON: MG MAMM SCREEN 3D KUN CAD, 09/06/2022. MG MAMM SCREEN 3D KUN CAD, 09/04/2021. INDICATIONS: Screeni ng for malignant neoplasm Calculator Name NCI Breast Cancer Risk Assessment Tool 5 Year Breast Cancer Risk 1.60% Lifetime Breast Canc er Risk 4.30% Personal Breast Canc er No Personal Ovarian Cancer No Treatments None Family Cancers None LOCATION: [facility] BREAST COMPOSITION: There are scattered areas of fibroglandular density. FINDINGS: DIAGNOSTIC CATEGORY 1--NEGATIVE. NO CHANGE FROM COMPARISON ASSESSMENT. Scattered benign-appearing calcifications are present. Scattered benign-appearing lym ph nodes are present. RIGHT BREAST: No significant suspicious finding. LEFT BREAST: No significant suspicious finding. RECOMMENDATIONS: ROUTINE MAMMOGRAM AN D CLINICAL EVALUATION IN 12 MONTHS. PLEASE NOTE: A CRISTOFER L MAMMOGRAM DOES NOT EXCLUDE THE POSSIBILITY OF BREAST CANCER. A CLINICALLY SUSPICIOUS PALPABLE LUMP SHOULD BE BIOPSIED. Dictated by: Jose Hudson MD on 03/04/2024 at 10:51 Approved by: Jose Hudson MD on 03/04/2024 at 10:52 Dictated By: Jose Hudson M.D. Signed By: 03/04/241052 DD/ 51 TD/TT: [employer] Driver: CT Chest w/o contrast Reviewed date:12/11/2023 07:11:56 AM Interpretation: Performing Lab: Notes/Report: PTH, Intact Reviewed date:11/08/2023 11:59:50 AM Interpretation: Performing Lab: Notes/Report: [facility] , PTH, Intact 70 15-65 pg/mL Performed at: [address] [id number] Infection Control Nurse: Rich Camejo PhD, Phone: [phone] Performing Lab: see note [facility] LB VITAMIN D 25 [place] Reviewed date:11/07/2023 01:10:46 PM Interpretation: Performing Lab: Notes/Report: [facility] , Vitamin D 83.6 <20 ng/mL Vit D deficient 20-<30 ng/mL Vit D insufficient 30-100 ng/mL Vit D sufficient >100 ng/mL Potential Toxicity Performing Lab: see note [facility] RENAL FUNCTION PANEL Reviewed date:11/07/2023 01:10:46 PM Interpretation: Performing Lab: Notes/Report: [facility] , Sodium 141 136-145 mmol/L Potassium 3.8 3.5-5.1 mmol/L Chloride 103 98-107 mmol/L Carbon Dioxide 28.9 21.0-32.0 mmol/L Anion Gap 12.9 Glucose 100 74-106 mg/dL Blood Urea Nitrogen 21.0 7.0-18.0 mg/dL Creatinine 1.46 0.55-1.02 mg/dL Estimated GFR ( Shahana 43 >=60 Estimated GFR (Non- Nury 35 >=60 BUN Creatinine Ratio 14.4 Calcium 8.7 8.5-10.1 mg/dL Phosphorus 3.2 2.6-4.7 mg/dL Albumin Level 3.1 3.4-5.0 g/dL Performing Lab: see note - [facility] PTH, Intact Reviewed date:05/06/2024 11:54:37 AM Interpretation: Performing Lab: Notes/Report: [facility] , PTH, Intact 90 15-65 pg/mL Performed at: [address] [id number] Infection Control Nurse: Rich Camejo PhD, Phone: [phone] Performing Lab: see note [facility] ([facility]) Reviewed date:11/07/2023 01:10:46 PM Interpretation: Performing Lab: Notes/Report: [facility] , White Blood Count 7.5 4.0-11.0 10 3/uL Red Blood Count 4.38 4.20-5.40 10 6/uL Hemoglobin 11.9 12.0-16.0 g/dL Hematocrit 38.7 36.0-48.0 % Mean Corpuscular Volume 88.4 81.0-99.0 fL Mean Corpuscular Hemoglobin 27.2 26.7-34.0 pg Mean Corpuscular HGB Conc 30.7 29.9-35.2 g/dL Red Cell Distribution Width 13.8 11.0-15.0 % Platelet Count 163 150-450 10 3/uL Mean Platelet Volume 12.6 9.5-13.5 fL Performing Lab: see note - [facility] LB URIC ACID SERUM Reviewed date:11/07/2023 01:10:46 PM Interpretation: Performing Lab: Notes/Report: [facility] , Uric Acid 5.3 2.6-6.0 mg/dL Performing Lab: see note - [facility] LB UA RANDOM W or MICROSCOPIC Reviewed date:11/07/2023 01:10:46 PM Interpretation: Performing Lab: Notes/Report: [facility] , Color Urine LT. YELLOW YELLOW Clarity Urine CLEAR CLEAR Specific Brea Urine >=1.030 1.005-1.025 pH Urine 6.0 5.0-9.0 Protein Urine TRACE NEG/TRACE mg/dL Glucose Urine UA NEGATIVE NEGATIVE mg/dL Bilirubin Urine NEGATIVE NEGATIVE Ketones Urine NEGATIVE NEGATIVE mg/dL Blood Urine SMALL NEGATIVE Nitrite Urine NEGATIVE NEGATIVE Urobilinogen Urine 0.2 0.2-1.0 EU/dL Leukocyte Esterase Urine MODERATE NEGATIVE WBC Urine 10-20 NONE SEEN #/HPF RBC Urine 0-2 0-2 #/HPF Bacteria Urine SMALL NONE SEEN #/HPF Mucus Urine SMALL NONE SEEN Squamous Epithelial Cell Urine MANY NONE/RARE #/LPF Transitional Epi Cells Urine MANY NONE SEEN #/LPF Crystals Seen? None Seen None Seen #/HPF Cast Seen? SEEN NONE SEEN #/LPF Hyaline Casts Urine RARE Performing Lab: see note ML - [facility] LB MAGNESIUM Reviewed date:11/07/2023 01:10:46 PM Interpretation: Performing Lab: Notes/Report: [facility] , Magnesium 1.6 1.8-2.4 mg/dL Performing Lab: see note ML - [facility] LB Reason For Referral No Information Medications Medication SIG (Take, Route, Frequency, Duration) Notes Start Date End Date Status Alendronate Sodium 70 MG TAKE 1 TABLET B Y MOUTH ONCE A WEEK *WAIT 30 MINUTES BEFORE EATING AND STAY UPRIGHT FOR 30 MINUTES* for 84 Active buPROPion HCl ER (XL) 300 MG TAKE 1 TABLET BY MOUTH EVERY DAY for 90 Active Fluticasone Propionate 50 MCG/ACT USE 1 SPRAY IN EACH NOSTRIL TWICE A DAY for 90 Active Levothyroxine Sodium 150 MCG TAKE 1 TABLET BY MOUTH EVERY DAY IN THE MORNING ON AN EMPTY STOMACH FOR 30 DAYS for 90 days Active Ketoconazole 2 % 1 application Medical Assisting Program Director ally Once a day for 14 days 03/05/2024 Active Losartan Potassium 100 MG TAKE 1 TABLET BY MOUTH EVERY DAY for 90 Active Lovastatin 40 MG TAKE 1 TABLET BY YULISSA EVERY DAY AT BEDTIME FOR 90 DAYS for 90 Active Raloxifene HCl 60 MG TAKE 1 TABLET BY MO [facility] EVERY DAY for 90 days Active Montelukast Sodium 10 MG TAKE 1 TABLET B Y MOUTH EVERYDAY AT BEDTIME Oral for 90 Days Active Omeprazole 40 MG TAKE 1 CAPSULE BY MO UT EVERY DAY for 90 Active tiZANidine HCl 4 MG 1 tablet as needed O rally daily for 14 days 02/13/2023 Active Social History Tobacco Use: Social History Observation Description Date Details (start date - stop date) Never Smoker NA - NA Tobacco Use/Smoking Question Answer Notes Patient is a nonsmoker Alcohol Screen (Audit-C) Question Answer Notes Did you have a drink containing alcohol in the p ast year? No Points 0 Interpretation Negative Tobacco Control (Standard) Question Answer Notes Tobacco use: Nonsmoker AUDIT-C (Standard) Question Answer Notes Did you have a drink containing alcohol in the p ast year? No Points 0 Interpretation Negative Problems Problem Type SNOMED Code ICD Code Onset Dates Problem Status W/U Status Risk Notes Problem Shortness of breath (796178817) Shortness of breath (R06.02) Active confirmed Problem Hyperlipidemia (10448798) Hyperlipidemia (E78.5) Active confirmed Problem Hypertension (45580500) Hypertension (I10) Active confirmed Problem Chronic kidney disease (327059332) Chronic kidney disease (N18.9) Active confirmed Problem Anxiety (77032231) Anxiety (F41.9) Active confi rmed Problem Hypothyroid (18247714) Hypothyroid (E03.9) Active confirmed Problem Hyperglycemia (43956747) Hyperglycemia (R73.9) Active confirmed Problem Insomnia (990557049) Insomnia (G47.00) Active c onfirmed Problem Hiatal hernia (36680599) Hiatal hernia (K44.9) Active confirmed Problem Diverticular disease of colon (736777693) Diverticulosis (K57.90) Active confirmed Problem Colitis (89137502) Colitis (K52.9) Active confi rmed Problem Osteoporosis (29227716) Osteoporosis (M81.0) Active confirmed Problem Hyperparathyroidism (10090747) Hyperparathyroidism (E21.3) Active confirmed Problem Cholelithiasis (956969264) Cholelithiases (K80.20) Active confirmed Problem Prediabetes (983834766) Pre-diabetes (R73.09) Active confirmed Problem Seasonal allergy (250832329) Seasonal allergies (J30.2) Active confirmed Problem Laboratory test result abnormal (624668360) Abnormal laboratory test (R89.9) Active confirmed Problem Allergic asthma (831177256) Allergic asthma (J45.909) Active confirmed Problem Mediastinal lymphadenopathy (69012867) Mediastinal lymphadenopathy (R59.0) Active confirmed Problem Multiple pulmonary nodules (175907878) Multiple pulmonary nodules (R91.8) Active confirmed Problem Decreased estrogen level (785999208) Estrogen deficiency (E28.39) Active confirmed Problem History of COVID-19 (532967354697697517) History of COVID-19 (Z86.16) Active confirmed Problem Peripheral eosinophilia (D72.19) Active confirmed Problem Low back pain (finding) (600393621) Low back pain at multiple sites (M54.50) Active confirmed Vital Signs Heart Rate 102 /min 12/24/2023 Temperature 96.2 degrees Fahrenheit 12/24/2023 Respiratory Rate 18 /min 12/24/2023 Blood pressure diastolic 70 mm Hg 09/03/2024 Oximetry 96 % 12/24/2023 Height 64 in 09/03/2024 Blood pressure systolic 134 mm Hg 09/03/2024 Weight 178 lbs 09/03/2024 BMI 30.55 kg/m2 09/03/2024 Encounters Encounter Location Date Provider Diagnosis [facility] [address] [place] [address] 09/10/2024 Yaritza Osorio Abnormal laboratory test R89.9 [facility] [address] [place] [address] 10/02/2024 Yaritza Jo Abnormal laboratory test R89.9 [facility] [address] [place] [address] 03/05/2024 Yaritza Jo [facility] [address] [place] [address] 03/05/2024 Yaritza Osorio Yeast dermatitis B37 .2 and Yeast infection B37.9 [facility] [address] [place] [address] 09/03/2024 Yaritza Osorio Hypothyroid E03.9 [facility] [address] [place] [address] 12/24/2023 Ayush Ledbetter Multiple pulmonary nodules R91.8 ; Pulmonary coccidioidomycosis, unspecified 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 There still remains a large 11 mm right middle lobe pulmonary nodule with surrounding small 3-4 mm nodules. Suspect this is secondary to coccidiomycosis which is slowly healing. As it has not completely improved, would recommend repeating chest CT in 1 year to document approximately 2 years of progressive improvement in this nodule, corresponding to current Fleischner Society guidelines. The patient voiced agreement. She was counseled to contact me sooner if she starts experiencing decreased appetite unexplained weight loss, night sweats, hemoptysis, etc. 03/05/2024 Yeast dermatitis (ICD-10 - B37.2) to abdominal fold 03/05/2024 Yeast infection (ICD-10 - B37.9) vaginal itching recent abx use 09/03/2024 Hypothyroid (ICD-10 - E03.9) continue med checking labs feels well 09/10/2024 Abnormal laboratory test (ICD-10 - R89.9) 10/02/2024 Abnormal laboratory test (ICD-10 - R89.9) 12/24/2023 Pulmonary coccidioidomycosis, unspecified (ICD-10 - B38.2) Positive Coccidioides IgG & IgM - legitmate exposure as she was previously in [place]. Nodules are resolving/improvin g. 12/24/2023 Mediastinal lymphadenopathy (ICD-10 - R59.0) Mediastinal and hilar lymphadenopathy noted on chest CTA 03/04/2023. Resolved on chest CT 04/03/2023 and remains resolved on 06/17/2023 as well as 12/10/2023. Repeat chest CT does not require any contrast. 12/24/2023 Peripheral eosinophilia (ICD-10 - D72.19) Elevated peripheral eosinophils on 03/04/2023 at 9.4% / absolute count 1.3. Suspect elevated secondary to coccidioides. 12/24/2023 History of COVID-19 (ICD-10 - Z86.16) Plan Of Treatment Pending Test Test Name Order Date CMP (COMPLETE METABOLIC PANEL) 3 CMP (COMPLETE METABOLIC PANEL) 4 HEMOGLOBIN A1C (GLYCO) 02/13/2023 HEMOGLOBIN A1C (GLYCO) 09/03/2024 HEMOGLOBIN A1C (GLYCO) 07/15/2023 IRON, TOTAL 09/03/2024 IRON, TOTAL 07/15/2023 LIPID PANEL (CHOL/TRIG/HDL/LDL) 09/04/19 25 LIPID PANEL (CHOL/TRIG/HDL/LDL) 07/15/19 24 LIPID PANEL (CHOL/TRIG/HDL/LDL) 02/14/20 23 CBC WITH DIFF 02/13/2023 CBC WITH DIFF 07/15/2023 VITAMIN D, 25 LEVEL (TOTAL) 09/03/2024 VITAMIN D, 25 LEVEL (TOTAL) 07/15/2023 Insulin Level 07/15/2023 Insulin Level 09/03/2024 COMPREHENSIVE METABOLIC PROFILE WITH GFR 07/16/2023 CBC W/AUTO DIFF 09/10/2024 CBC W/AUTO DIFF 10/02/2024 XR DEXA BONE DENSITY 08/15/2023 THYROID PANEL (T4/TSH/FREE T3) 3 THYROID PANEL (T4/TSH/FREE T3) 5 THYROID PANEL (T4/TSH/FREE T3) 4 CMP (COMP MET HERNANDEZ) w/eGFR CKD-EPI 2024 CBC WITH DIFF 09/03/2024 Next Appt Details Provider Name:Ayush Ledbetter, 12/23/2024 10:00:00 AM, [address] [place], [address], Provider Name:Yaritza Hayes Maisha jones, 03/04/2025 10:00:00 AM, [address] [place], [address], Insurance Providers Payer Name Payer Address Payer Phone Subscriber Number Group Number Insured Name Patient Relationship to Insured Coverage Start Date Coverage End Date [employer] ADV PLAN [address] [address] [place] [id number] Kareen Burroughs Self - patient is the insured Medical (General) History Medical History History ICD Code Seasonal allergies J30.2 Chronic kidney disease N18.9 Low back pain at multiple sites M54.50 Insomnia G47.00 Hypertension I10 Diverticulosis K57.90 Colitis K52.9 Cholelithiases K80.20 Pre-diabetes R73.09 Hyperglycemia R73.9 Estrogen deficiency E28.39 Allergic asthma J45.909 Hypothyroid E03.9 Anxiety F41.9 Hyperlipidemia E78.5 Osteoporosis M81.0 Multiple pulmonary nodules R91.8 COVID-19 U07.1 Mediastinal lymphadenopathy R59.0 Hiatal hernia K44.9 Peripheral eosinophilia D72.19 History of COVID-19 Z86.16 Surgical History Surgery Date(Month/Year) Hysterectomy cholecystectomy 1975 Hospitalization History Reason Date(Month/Year) URI-[facility] [facility] ER-Vomiting 03/04/2023
--- OUTSIDE RECORDS SUMMARY | 2024-11-04 08:03 | XMS_ITS | CCD ---
Author Organization [facility] Care Team Providers Care Therapeutic Activities Services Worker Name Role Phone Audie Truong Unavailable YARITZA [...] Medication Allergies] Propensity to adverse reactions (disorder) [facility] Repository Medications Current Medications Medication Drug [...] 12, 2024 11:53am fluticasone 0.05 mg/inh Nasal Gilbert (2 sources) Start: 01-01-2019 take 2 spray(s) nasal route once daily fluticasone 0.05 mg/inh Nasal Gilbert 2 spray(s), Nasal, Daily, each nostril Start [...] Start: 01-01-2019 take 1 capsule by [facility] once daily levothyroxine 125 mcg (0.125 mg) [...] 12:00am Start: 01-01-2019 take 1 tablet by [facility] once daily lovastatin 40 mg Tab [...] 1 tablet by mouth once Methylprednisolone (Medrol (Dainel)) 4 mg tablets,dose pack Active 0 PO per package directions July 17, 2024 12:00am PO PER PKG DIR for 6 days methylsulfonylmethane 1000 mg oral tablet (4 sources) Start: 05-12-2024 take 1 capsule by mouth twice daily Methylsulfonylmethane (Msm) 1,000 mg capsule Active 1000 MG PO Twice daily May 12, 2024 1:00am take 1 capsule by [facility] every twenty-four hours MSM 500 MG [...] 1:00am Start: 05-12-2024 take 2 tablets by [facility] once daily Multivitamin (Daily Multi-Vitamin) tablet [...] 19, 2023 12:00am take 1 capsule by [facility] every twenty-four hours Omeprazole 40 MG [...] 19, 2023 12:00am take 1 tablet by [facility] every twenty-four hours Raloxifene HCl 60 [...] procedure, # 2 tab(s), Refills(s) 0, Pharmacy: [facility]/pharmacy #[id number], 162, cm, 07/02/22 14:24:00 EDT, Height/Length [...] distribution width [Ratio] by Automated count 11.0-15.0 [facility] Estimated glomerular filtrat ion rate (GFR) non- Americanon 05-05-2024 GFR/1.73 sq M.predicted among non-blacks MDRD (S/P/Bld) [Vol rate/Area] Estimated glomerular filtration rate (GFR) non- Low >=60 mL/min/1.73m 2 [facility] Hematocrit Auto (Bld) [Volum e fraction]on 05-05-2024 Hematocrit (Bld) [Volume fraction] Hematocrit [Volume Fraction] of Blood by Automated count 36.0-48.0 [facility] Hemoglobin [Mass/volume] in Bloodon 05-05-2024 Hemoglobin (Bld) [Mass/Vol] Hemoglobin [Mass/volume] in Blood 12.0-16.0 [facility] Iron binding capacity [Mass/ volume] in Serum or Plasmaon 05-05-2024 Iron binding capacity [Mass/Vol] Iron binding capacity [Mass/volume] in Serum or Plasma Low 250.0-450.0 [facility] Iron saturation [Mass Fracti on] in Serum or Plasmaon 05-05-2024 Iron saturation [Mass fraction] Iron saturation [Mass Fraction] in Serum or Plasma [facility] Laboratory - Chemistry and C hemistry - challengeon 05-05-2024 Albumin [Mass/Vol] 3.1 g/dL Low 3.4-5.0 [facility] Calcium [Mass/Vol] 8.3 mg/dL Low 8.5-10.1 [facility] Chloride [Moles/Vol] 105 mmol/L 98-107 [facility] CO2 [Moles/Vol] 28.9 mmol/L 21.0-32.0 [facility] Creatinine [Mass/Vol] 1.47 mg/dL High 0.55-1.02 [facility] Ferritin [Mass/Vol] 93.0 ng/mL 8.0-252.0 [facility] GFR/1.73 sq M.predicted MDRD (S/P/Bld) [Vol rate/Area] 42 mL/min/{1.73_m2} Low >=60 mL/min/1.73m 2 [facility] Glucose [Mass/Vol] 104 mg/dL 74-106 [facility] Iron [Mass/Vol] 40.0 ug/dL Low 50.0-170.0 [facility] Magnesium [Mass/Vol] 2.0 mg/dL 1.8-2.4 [facility] Potassium [Moles/Vol] 4.0 mmol/L 3.5-5.1 [facility] Sodium [Moles/Vol] 143 mmol/L 136-145 [facility] Urate [Mass/Vol] 5.1 mg/dL 2.6-6.0 [facility] Urea nitrogen [Mass/Vol] 16.0 mg/dL 7.0-18.0 [facility] Urea nitrogen/Creatinine [Mass ratio] 10.9 mg/mg [facility] Bilirubin Ql (U) Negative NEGATIVE [facility] Glucose (U) [Mass/Vol] Negative NEGATIVE [facility] Ketones Ql (U) Negative NEGATIVE [facility] pH (U) 5.5 [pH] 5.0-9.0 [facility] Specific gravity (U) [Rel density] >=1.030 Abnormal 1.005-1.025 [facility] Urobilinogen Qn (U) 0.2 {Mikel'U}/dL 0.2-1.0 [facility] Laboratory - Specimen inform ationon 05-05-2024 Appearance (U) CLEAR CLEAR [facility] Color (U) YELLOW YELLOW [facility] Laboratory - Urinalysison Leukocyte esterase Test strip Ql (U) SMALL Abnormal NEGATIVE [facility] Mucus Ql (Urine sed) TRACE Abnormal NONE SEEN [facility] Nitrite Ql (U) Negative NEGATIVE [facility] Protein (U) [Mass/Vol] 38.9 mg/dL High <=11.9 [facility] Protein Ql (U) TRACE mg/dL NEG/TRACE [facility] Leukocytes [#/volume] correc milagros for nucleated erythrocytes in Blood by Automated counon 05-05-2024 WBC corrected for nucl RBC Auto (Bld) [#/Vol] Leukocytes [#/volume] corrected for nucleated erythrocytes in Blood by Automated coun 4.0-11.0 [facility] MCH Auto (RBC) [Entitic mass ]on 05-05-2024 MCH (RBC) [Entitic mass] MCH [Entitic mass] by Automated count 26.7-34.0 [facility] MCHC Auto (RBC) [Mass/Vol]on 05-05-2024 MCHC (RBC) [Mass/Vol] MCHC [Mass/volume] by Automated count 29.9-35.2 [facility] MCV Auto (RBC) [Entitic vol] on 05-05-2024 MCV (RBC) [Entitic vol] MCV [Entitic volume] by Automated count 81.0-99.0 [facility] No Panel Informationon 05-05 25-Hydroxy Vitamin D Total 76.3 ng/mL [facility] Comment on above: <20 ng/mL Vit D defi cient20-<30 ng/mL Vit D [id number] ng/mL Vit D sufficient>100 ng/mL Potential Toxicity Parathyroid Hormone (Intact) 90 pg/mL Abnormal 15-65 [facility] Comment on above: Performed at: [address] [id number] Director: Rich Camejo PhD, Phone: [phone] Phosphorus Level 3.1 mg/dL 2.6-4.7 [facility] Urine Bacteria SMALL #/HPF Abnormal NONE SEEN [facility] Urine Occult Blood SMALL Abnormal NEGATIVE [facility] Urine Random Creatinine 232.52 mg/dL 20.00-300.00 [facility] Urine RBC 2-5 #/HPF Abnormal 0-2 [facility] Urine Squamous Epithelial Cells MODERATE #/LPF Abnormal NONE/RARE [facility] Urine WBC 10-20 #/HPF Abnormal NONE SEEN [facility] Platelet mean volume Auto (B ld) [Entitic vol]on 05-05-2024 Platelet mean volume (Bld) [Entitic vol] Platelet mean volume [Entitic volume] in Blood by Automated count 9.5-13.5 [facility] Platelets Auto (Bld) [#/Vol] on 05-05-2024 Platelets (Bld) [#/Vol] Platelets [#/volume] in Blood by Automated count Low 150-450 [facility] RBC Auto (Bld) [#/Vol]on RBC (Bld) [#/Vol] Erythrocytes [#/volume] in Blood by Automated count 4.20-5.40 [facility] Serum or plasma anion gap de terminationon 05-05-2024 Anion gap [Moles/Vol] Serum or plasma anion gap determination [facility] Urine protein/creatinine rat ioon 05-05-2024 Protein/Creatinine (U) [Ratio] Urine protein/creatinine ratio [facility] Erythrocyte distribution wid th Auto (RBC) [Ratio]on 11-07-2023 Erythrocyte distribution width (RBC) [Ratio] 13.8 % 11.0-15.0 [facility] Estimated glomerular filtrat ion rate (GFR) non- Americanon 11-07-2023 GFR/1.73 sq M.predicted among non-blacks MDRD (S/P/Bld) [Vol rate/Area] 35 mL/min/{1.73_m2} Low >=60 [facility] Hematocrit Auto (Bld) [Volum e fraction]on 11-07-2023 Hematocrit (Bld) [Volume fraction] 38.7 % 36.0-48.0 [facility] Hemoglobin [Mass/volume] in Bloodon 11-07-2023 Hemoglobin (Bld) [Mass/Vol] 11.9 g/dL Low 12.0-16.0 [facility] Laboratory - Chemistry and C hemistry - challengeon 11-07-2023 Albumin [Mass/Vol] 3.1 g/dL Low 3.4-5.0 [facility] Calcium [Mass/Vol] 8.7 mg/dL 8.5-10.1 [facility] Chloride [Moles/Vol] 103 mmol/L 98-107 [facility] CO2 [Moles/Vol] 28.9 mmol/L 21.0-32.0 [facility] Creatinine [Mass/Vol] 1.46 mg/dL High 0.55-1.02 [facility] GFR/1.73 sq M.predicted MDRD (S/P/Bld) [Vol rate/Area] 43 mL/min/{1.73_m2} Low >=60 [facility] Glucose [Mass/Vol] 100 mg/dL 74-106 [facility] Magnesium [Mass/Vol] 1.6 mg/dL Low 1.8-2.4 [facility] Potassium [Moles/Vol] 3.8 mmol/L 3.5-5.1 [facility] Sodium [Moles/Vol] 141 mmol/L 136-145 [facility] Urate [Mass/Vol] 5.3 mg/dL 2.6-6.0 [facility] Urea nitrogen [Mass/Vol] 21.0 mg/dL High 7.0-18.0 [facility] Urea nitrogen/Creatinine [Mass ratio] 14.4 mg/mg [facility] Bilirubin Ql (U) Negative NEGATIVE [facility] Glucose (U) [Mass/Vol] Negative NEGATIVE [facility] Ketones Ql (U) Negative NEGATIVE [facility] pH (U) 6.0 [pH] 5.0-9.0 [facility] Specific gravity (U) [Rel density] >=1.030 Abnormal 1.005-1.025 [facility] Urobilinogen Qn (U) 0.2 {Mikel'U}/dL 0.2-1.0 [facility] Laboratory - Specimen inform ationon 11-07-2023 Appearance (U) CLEAR CLEAR [facility] Color (U) LT. YELLOW YELLOW [facility] Laboratory - Urinalysison Hyaline casts LM Ql (Urine sed) RARE [facility] Leukocyte esterase Test strip Ql (U) MODERATE Abnormal NEGATIVE [facility] Mucus Ql (Urine sed) SMALL Abnormal NONE SEEN [facility] Nitrite Ql (U) Negative NEGATIVE [facility] Protein Ql (U) TRACE mg/dL NEG/TRACE [facility] Leukocytes [#/volume] correc milagros for nucleated erythrocytes in Blood by Automated counon 11-07-2023 WBC corrected for nucl RBC Auto (Bld) [#/Vol] 7.5 10 3/uL 4.0-11.0 [facility] MCH Auto (RBC) [Entitic mass ]on 11-07-2023 MCH (RBC) [Entitic mass] 27.2 pg 26.7-34.0 [facility] MCHC Auto (RBC) [Mass/Vol]on 11-07-2023 MCHC (RBC) [Mass/Vol] 30.7 g/dL 29.9-35.2 [facility] MCV Auto (RBC) [Entitic vol] on 11-07-2023 MCV (RBC) [Entitic vol] 88.4 fL 81.0-99.0 [facility] No Panel Informationon 11-06 25-Hydroxy Vitamin D Total 83.6 ng/mL [facility] Comment on above: <20 ng/mL Vit D defi cient20-<30 ng/mL Vit D [id number] ng/mL Vit D sufficient>100 ng/mL Potential Toxicity Parathyroid Hormone (Intact) 70 pg/mL Abnormal 15-65 [facility] Comment on above: Performed at: [facility] [address] [id number] Director: Rich Camejo PhD, Phone: [phone] Phosphorus Level 3.2 mg/dL 2.6-4.7 [facility] Urine Bacteria SMALL #/HPF Abnormal NONE SEEN [facility] Urine Occult Blood SMALL Abnormal NEGATIVE [facility] Urine Other Casts SEEN #/LPF Abnormal NONE SEEN [facility] Urine Other Crystals None Seen #/HPF None Seen [facility] Urine RBC 0-2 #/HPF 0-2 [facility] Urine Squamous Epithelial Cells MANY #/LPF Abnormal NONE/RARE [facility] Urine Transitional Epithelial Cells MANY #/LPF Abnormal NONE SEEN [facility] Urine WBC 10-20 #/HPF Abnormal NONE SEEN [facility] Platelet mean volume Auto (B ld) [Entitic vol]on 11-07-2023 Platelet mean volume (Bld) [Entitic vol] 12.6 fL 9.5-13.5 [facility] Platelets Auto (Bld) [#/Vol] on 11-07-2023 Platelets (Bld) [#/Vol] 163 10 3/uL 150-450 [facility] RBC Auto (Bld) [#/Vol]on RBC (Bld) [#/Vol] 4.38 10 6/uL 4.20-5.40 [facility] Serum or plasma anion gap de terminationon 11-07-2023 Anion gap [Moles/Vol] 12.9 mmol/L [facility] Coding Summary.on 07-19-2022 Coding Summary. CD:[id number] Ww+PGhlYWQ+DI1SWSJqK 47hgCWfzF9fY0ABIXjCG ywgQVBQTElOSyIgbmFtZ A9rkYFrBRWo IC8+XI3qEUIwRbwprWNl g3T9fMJ0Z13cxm7jTJst qJX3JVWjWyZoomncf8bp yOz1HFdtAwxrNtZi QWFpiG77WEG2eT31Bz09 zOUyeSDdj2idoGe8LdQe DXTmTRS1yQfnGYfzr9Jp UIJeV91uxYOun5S3 IGNvbGxhcHNlOyBlbXB0 tF5rFYmjiikjs1rnthuf Dji0kf91rMFvx7A7wIK9 I2QgseF9SWCjjXTa NcyewKULxL3ycmgvn6sq rwupPxAoNGWgEAs8RHz2 QFIqcEygIqJxTS56LXU7 XKDmydYaS1MaLZEd rOuuPbC4d5D6Su6GG9VJ YwxmR3KHRLGYBEmmzZU+ IS06ke96L3GhUnknWvo9 TDDyBFL3qDK6pK5l NAIyQEqgg3D4wUH5S0Hf ffOqri6nw6iyVCNsSLcc U87spCSbk9J7EKRpeWS0 LLEsiTqkPlCktP31 Oyc+IFArrEgkr9GpAzro u5bki6ytfSy4UgbvQHOb akFraNcpGPP0y1ZsCz4i GLVqbNY0bTC1vZ5o KiHmKpY2IHdkU189GtOd zZSmBwqxC08oW9PodYJ+ CNFjVbp9YHSsnTbgKB3n Z4PeCFJeldscpHRz dMnmQQ7gONLzfftmETTs qH1yZCFqD7k3PmHnHxK3 HVluV9SjPJEmseaeAt32 bO5tYhLyQjO7USoq A2ArsuI4OTRnaBBhCXbq REJ6J37nl0S4WGWcRNUc LLJ4sGO5mQ6vbIsrlint bGVmdDsgdmVydGlj CZknNTgkH203HBIvoJrx PkNvZGluZyBEYXRlOiAg MDMvMzAvMjAyMzwvdGQ+ NJWmHCH7mQtiVOZk mQMkDRcxXs1ggTxspNaa JH9yZHTelbttFAPvsU6u BYLwrJJoaZcdKO7jPXGj gppud745HxHmSPU9 JPXguPXdM2TfxM4yIjQv IZJqSSHpA4IjfQXfZIro T061RDjrWoQ6XIGrauVn B7YzVZPamAjuVlE2 q4O9Wb7Uu2KtdpioQ2Ga pAWiDaOkJfbnOAw4L8Pb PjwvdHI+JV14YJWhHM61 NGs1WPS0nXwbNBkj ZXAjO9TfpN6qPgEwTTFs ZGRkOyc+PHRhYmxlIHdp ZHRoPScxMDAlJyBzdHls RQ1hXz4jXSUoXZJf dVnrsUSiExOoq8arKKFi AUveVJ7vwZxpH1HhiDI6 CTWkw0z8Rj58V97zH0Fe dXA+ZCOhhGD3mXC5 oX3xYoWiPyL0FNcaB039 UaJffETcCkwkq5fwo2ae nAe9YtV4NOZhhvZlwPey KJA6g3IlOg28U69a IHdpZHRoPSIxNSUiIHZh rMcqyq7mhH2mNv7+PGNv cDQ4dFJ7fV8mOgIpVcY8 XPrgL060MbAseBMq Qghbi4kgs3bssRf1NuGs MQZscsTozOvrSSQ4r7Ha Jt63W8SnjDbde7YaFuy6 pv38fABxc8C1yPV2 O2GrZNNmzsixoIUbaCcl NB9pKASsrzvcSFMbsS4y CBZgD8l4HjZfCtG4ABaa U7KvijF0KOYbeCWj XYGexITWjJ8jgnohw8fz qtdoZdBqENKuEQq2PHd8 OVMhvPkbRgHxFWR3CqK5 SZA1yQOlkC4sbGgr akbqnW5lJxg+WGG0dTNc xFPJBK0hZbfygWS+PHRk QRK4sLqtXJjrYMNwrH3s ZWVrG8f0StXjPwV2 NCueE4JmyiW9NBOdyHPp KHLplYAOlY3ftnpjp6ma pplpCkEbKZIgPFw1LEf0 LWFsaWduOiBsZWZ0 PqJ4FAW0xJGefY7pzSqx aleavG0tWgl+QmlydGgg NMZ6QKj7K8KaUph3JXTk rMcxUM5qhPYnSHbr Wd5frBeuyQeaXJ5sZFMt gspqy099KtBmh6doVIBa jFDaZKseBGN0I33px2R6 DGMzAPZjHVL4sWN8 rH0ncCrubzxyoVPhmBvz zdYumCzgKEesMKtlD995 SXBczFyyMeZxYGf2W2Bp Cbu5UEAviZvlZI8z nMXeLQrqFk4knVdguCqa CX8pGWHgjmxwk410WcGp x1bvQIXonTWfUZazROX7 L04lc5B1XDFpQSPt AUD5kVG3pT1lzYzitydy bGVmdDsgdmVydGljYWwt SYjuP156LDExpXbePwWy qMn9W2VvBve6YRVk fAobTD9qkIUzGIllKw7g gZxqxUyxZQ1cEYKjwbay g783QjZuy9toNAFysWJo RUlkCJB0X96da8L2 QKPsZZMgERT4bJL0uJ7s bGlnbjogbGVmdDsgdmVy xVbhJLonICnkR406MARl cDsnPlBhdGllbnQg GLetWBd6G8BvZoifcEM+ ZQ88DDSuMK12tZAwdPUs w9gvrCm8GfShNROoTYG6 aMzeJEeyl8FbYCNm T41iwZQnq5W1XMKybEpp eWOiHgLrbJD3zA5oZNin sireg5rjpwwcFpvho3kl wa81gU12G12yXOks ZHRoPSIzMCUiIHZhbGln bj0ciG2xTb5+PGNvbCB3 mJO8lW4hRRDaVaS6YZnd U157GfTesLTiYkdd g1dll7txaPt8EuV1GDUc hvJhpNfqYWZ6o0WtEr18 A85nPFhxVZXeTYLyVEKv KULlqShehn0ttB0m Ii8+KORlzEG8iIF9iJ6p KxUaEaY7RUliA288FfYf vSUtEfexZ27sI4LgeIO+ AZOtEbl7BWGhmFuq LM5hjHOnPCvkTn9oQSC5 AdUmApOySCqcE3FrFDRo gkzhvkeyjNQ6WOIaBXEa iR16Pm2fkIqsCZFh nVOErE4fqfkiq9lvyecq KwYhVAIkNIk6HDu6FUBd iVkwUoPkZXD2RyI6VFN1 tLRapJ1xrDofyytl fK0fY4HyPDHprjtyAg18 fQ9dFmKaZaN9EKxkBbh+ R5LODwINDMPDBZOFB4RQ TkUgQTwvdGQ+PHRk VIP7qQiuPGkwJSObfK0w UUPyG7a8YeHwAlD9KOes X7PyDUItvknhTh67qL9g CkCvMzN5ETbcS2Yt cwU1MDCzoOJoTZjlOWE1 K22cr5E9GSDfFHZyMCQ6 nSK9nN3qdFqzyybzrKSg dDsgdmVydGljYWwt OZhyH287XRVrrCatEyTz BxHqQgJ3LPA1Q1QtVyg8 CPMorSfwBY9jtPAbZOic Lx6orAknwLekJP5r MXCchfpcSJCszI6qRHWd mMNdqOepSP3cIPJnfvua j475ZfNoIQG3MOFdaJSa K6NheX9iKcRsEDCe OCWvX9AdbYKqLAudL755 OLxaIsL2PNKkriRhZ8Vk DBHdwFocHjO0j8M6Ha85 MCBZZWFyczwvdGQ+ RUMkPPQ9pSbdSRmyPVHr lK6hYFDjF9z7WtUcNyE5 XHtjC4SaDSTfqzzjHu71 xB5iNzQyIyM3QFyx Q6PeepC0KQIbbMYeZVio QUV7W54em4H0JVJoIRWo USZ0xYQ0wI3ylTydnvza bGVmdDsgdmVydGlj KPlbDMmkV276YZTmxCtg PkZlbWFsZTwvdGQ+PHRk WFB8tUrfWRmeFMEleE9f NQYrH3l4TmBgLnZ0 XBfuA7XnWNNltlrwWw81 jR7fCnOmUkV3VMxkY6Au szP5TWFxeJBrCMxvCNY4 R08vz7D3NDCyXFSc JSV7iGR3iN2jjOwfxrgx bGVmdDsgdmVydGljYWwt OLpaP183SASniUgsMg00 wPCfnJsrszH2Z1Hx PjwvdHI+KM79SCNiRD46 wGOyxMLzq7bdbIv4YqUo XBDaRTZ3gQzxBMucb5Qp SFIpE85vdBOec2X7 IGNvbGxhcHNlOyBlbXB0 lA3gJOjqtmdcn5luxfjw Mcppx6jdeo98rT24U90a IHdpZHRoPSIzMCUi QSPmyDgdum9nsF3aBb9+ YHXahUX4xXL8cX5dHmDg TnF9GPcpC290FwTwzLPf Pvtpl5duc9gatBz9 IjIwJSIgdmFsaWduPSJ0 s7ArQk41Q98kKCmuKQDr JKCtSKBiGLHvsIvhhz0p eO9cYk9+ZH1jt7nu km47pH74gWL+PHRkIHN0 oYlpJPrfAOZejH6jDEti YcP4WCJkRrFyvO99zPJw ITtnQz8ttIxebDnc TQ5hWXVerdlid329QiWm t3izSKIbnRUnMSpgMLG0 Y27jg5Z3UYJhPDEyBIY2 aVY4mD7fdIcnbuhz bGVmdDsgdmVydGljYWwt SFboX536OZWueGpoIxRc iEXxI2ulhuSGWK6sCjal dGQ+XRGqBAA0fJuw NBlfEZJgmC6mYGSvI2r2 CpDpOsJ4AWwsX5UkruH6 BBYxpKLzYRMmrVMZyO6r qtqqx3wqsamlZzAg RJYuWOe0QLq1YFZmdAgu XmVoNPQ7FxZ7JFS9kACp wB8hzVzyznqkrX6gGak+ RklOOjwvdGQ+PHRk CFH4cXlwCMbrMVPojS3p UXPdV6d9HtQuWsK1DQtz L3LqueA6ASAepWNtWCLj rVLVmI1murbxz9fi ucsbBiTsSQAuYHq1BLj0 ZCQguLvpWdNeTSZ3ZnA5 VHO4pBLzhV6qtSnbdpmj fP8yOdg+TVJOOjwv dGQ+QTEnNAC4iUcgYYlf QYMusK8jVFYlS1d3DbVo HqQ3ASjnI3GkciM5PJGx zWSjRCOqsXVNgY1g cmwxt8briphtJeYsCSUo AZa8YOa3LZUubFndGhEj COS0CuS7JYY8bOJloG0c qQonyexmeL5dQky+ MYQ6RXN7EC33CC37U3Kd PjwvdGFibGU+PHRhYmxl IHdpZHRoPScxMDAlJyBz gIklPC9dVk3aRYDh LWNvbGxh (more content not included)... [facility] Consent for Procedure/Surger yon 07-17-2022 Consent for Procedure/Surgery [id number] 0#[id number]:127 [facility] Consent for Treatmenton - Consent for Treatment [id number] #1.00CD:127 [facility] IntraOperative Documentson 0 07-17-2022 IntraOperative Documents [id number] 2#1.00CD:127 Normal [facility] Main OR Intraoperative Recor don 07-17-2022 Main OR Intraoperative Record IntraOp Document Type FTURO Summary Primary Physician: Iván TOMLIN MD Finalized Date/Time: 07/17/22 09:10:19 Pt. Name: PEG HADLEY/Sex: 1950 Female Med Rec #: [id number] Physician: Iván TOMLIN MD Financial #: [id number] Pt. Type: O Room/Bed: / Admit/Disch: 07/17/22 [...] Palma Ko Role Performed Surgeon - Primary Technical Project Coordinator - Primary Scrub - Primary Time In [...] DEDRA Noe RN, Ruthann 07/17/22 09:10 Normal [facility] Main OR Preoperative Recordo n 07-17-2022 Main OR Preoperative Record Holding Area Document Type FTURO Summary Primary Physician: Iván TOMLIN MD Finalized Date/Time: 07/17/22 09:04:54 Pt. Name: PEG HADLEY/Sex: 1950 Female Med Rec #: [id number] Physician: Iván TOMLIN MD Financial #: [id number] Pt. Type: O Room/Bed: / Admit/Disch: 07/17/22 [...] No Pain Comment: na Skin Integrity Intact, [place], Warm, & Dry Vitals - EU Blood Pressure 135/82 Pulse 65 bpm Respirations 16 br/min SPO2 96 % RN Reviewed Yes Last Modified By: DEDRA Noe RN, Ruthann 07/17/22 09:04:49 General Comments: temp:36.4 Finalized By: DEDRA Noe RN, Stefani Document Signatures Signed By: Anival BIRDMaeve Fernando 07/17/22 08:41 DEDRA Noe RN, Ruthann 07/17/22 09:04 Normal [facility] Operative Reporton Operative Report Patient: PEG [...] follow-up on a as needed basis.. Normal [facility] Comment on above: Result Comment: Elec tronically Signed By: Iván TOMLIN MD\.br\Date and Time Signed: 07/17/22 09:13 EDT RAD - Ultrasound Reporton RAD - Ultrasound Report [id number] #1.00CD:127 Normal [facility] Urine Cytology ([facility])on 0 07-09-2022 Urine Cytology Diagnosis Info Invalid Interpretation Code [facility] Comment on above: Result Comment: A:Ur ine,Urine:Voided Interpretation - MicroScopic Description - Adequacy - Gross Description Site ID:A color Light Yellow fixative Alcohol Specimen designated Urine received in alcohol preservative and labeled with the patient?s name, consists of 40ml clear light yellow fluid. Electronically signed by : on: 07/09/2022 15:10:50 Performed By: #### 1 [id number] ####[facility] [address] [place] [address] US KIDNEYSon 07-07-2022 US KIDNEYS EXAM: US [...] CAM Date: 2022-07-07 10:33 Normal [facility] Formson 07-03-2022 Forms [id number] #1.00CD:127 Normal [facility] Physician Referralon 023 Physician Referral [id number] #1.00CD:127 Normal [facility] Pre-Certification Formon Pre-Certification Form [id number]#1.00CD:127 Normal [facility] Ambulatory Visit Summaryon 0 07-02-2022 Ambulatory Visit Summary PEG HADLEY :1950 Visit Date:07/02/2022 Ambulatory Visit Instructions Your Diagnosis Microscopic hematuria Tests Performed Urnls Dip Stick Auto w/o Microscopy POC 82163 US Renal -- Results Pending -- Please [...] Tab) fluticasone nasal (fluticasone 0.05 mg/inh Nasal Gilbert) hyoscyamine (hyoscyamine 0.125 mg oral Tab) levothyroxine [...] [facility] [address] [place] [address]- Medications What How Much When Instructions Unchanged [...] fluticasone nasal (fluticasone 0.05 mg/ inh Nasal Gilbert) 2 Sprays Nasal Inhalation Every day each [...] Urnls Dip Stick Auto w/o Microscopy POC 21052 (07/02/2022) Bilirubin Urine Dipstick - Negative Blood Urine Dipstick - Trace-lysed Glucose Urine Dipstick - Negative Ketones Urine Dipstick - Negative Leukocytes Urine Dipstick - Negative Nitrite Urine Dipstick - Negative Protein Urine Dipstick - Negative Specific [place] Urine Dipstick - >=1.030 Urine Appearance Urine [...] ? (more content not included)... Normal [facility] Patient Educationon 07-03-19 Patient Education [...] these instructions at home: Medicines ? Take ndeo-les-evusvdx and prescription medicines only as told by [...] the blood stops without treatment. ? Take hasj-nkr-wchrqrg and prescription medicines only as told by your health care provider. ? Drink enough fluid to keep your urine clear or pale yellow. This information is not intended to replace advice given to you by your health care provider. Make sure you discuss any questions you have with your health care provider. Document Released: 04/08/2006 Document Revised: 09/02/2019 Document Reviewed: 05/11/2017 [employer] Patient Education ? 2019 [employer] Normal [facility] Urine Cytology ([facility])on 0 07-02-2022 Method of Extraction Voided Normal [facility] Comment on above: Performed By: #### 1 [id number] ####[facility] [address] [place] [address] Number of Jars 1 Invalid Interpretation Code [facility] Comment on above: Performed By: #### 1 [id number] ####[facility] [address] [place] [address] Specimen Urine Normal [facility] Comment on above: Performed By: #### 1 [id number] ####[facility] [address] [facility] [place] [address] Type of Service Technical Only [facility] Comment on above: Performed By: #### 1 [id number] ####[facility] [address] [facility] [place] [address] PTH INTACTon 05-22-2022 PTH, Intact 75 pg/mL Critically high 15-65 [facility] Comment on above: Performed By: #### P THINT #### [facility] [address] [address] [address] Andrea Mccarthy FERRITINon 05-21-2022 Ferritin [Mass/Vol] 124.0 ng/mL Normal 8.0-252.0 [facility] Comment on above: Performed By: #### U KIM, MG, PHOS #### [facility] [address] [address] [address] Andrea Mccarthy HEMOGRAM AND PLATELon 2022 Hematocrit (Bld) [Volume fraction] 40.1 % Normal 36.0-48.0 [facility] Comment on above: Performed By: #### U KIM, MG, PHOS #### [facility] [address] [place] [address] Dr. Andrea Mccarthy Hemoglobin (Bld) [Mass/Vol] 13.2 g/dL Normal 12.0-16.0 [facility] Comment on above: Performed By: #### U KIM, MG, PHOS #### [facility] [address] [address] [address] Andrea Mccarthy MCH (RBC) [Entitic mass] 28.0 pg Normal 26.7-34.0 [facility] Comment on above: Performed By: #### U KIM, MG, PHOS #### [facility] [address] [place] [address] Dr. Andrea Mccarthy MCHC (RBC) [Mass/Vol] 32.9 g/dL Normal 29.9-35.2 [facility] Comment on above: Performed By: #### U KIM, MG, PHOS #### [facility] [address] [address] [address] Andrea Mccarthy MCV (RBC) [Entitic vol] 85.1 fL Normal 81.0-99.0 [facility] Comment on above: Performed By: #### U KIM, MG, PHOS #### [facility] [address] [address] [address] Andrea Mccarthy PLT 255 103/ul Normal 150-450 [facility] Comment on above: Performed By: #### U KIM, MG, PHOS #### [facility] [address] [address] [address] Andrea Mccarthy RBC 4.71 106/ul Normal 4.20-5.40 [facility] Comment on above: Performed By: #### U KIM, MG, PHOS #### [facility] [address] [place] [address] Dr. Andrea Mccarthy WBC 5.9 103/ul Normal 4.0-11.0 [facility] Comment on above: Performed By: #### U KIM, MG, PHOS #### [facility] [address] [place] [address] Dr. Andrea Mccarthy IRON AND TIBCon 05-21-2022 % SATURATION 18.5 % Normal [facility] Comment on above: Performed By: #### U KIM, MG, PHOS #### [facility] [address] [address] [address] Andrea Mccarthy Iron [Mass/Vol] 51.0 ug/dL Normal 50.0-170.0 [facility] Comment on above: Performed By: #### U KIM, MG, PHOS #### [facility] [address] [place] [address] Dr. Andrea Mccarthy TIBC DIRECT 276.0 ug/dL Normal 250.0-450.[address] [facility] Comment on above: Performed By: #### U KIM, MG, PHOS #### [facility] [address] [address] [address] Andrea Mccarthy MAGNESIUMon 05-21-2022 Magnesium [Mass/Vol] 1.8 mg/dL Normal 1.8-2.4 [facility] Comment on above: Performed By: #### U KIM, MG, PHOS #### [facility] [address] [address] [address] Andrea Mccarthy RENAL FUNCTION PANELon 05-21 Albumin [Mass/Vol] 3.5 g/dL Normal 3.4-5.0 [facility] Comment on above: Performed By: #### U KIM, MG, PHOS #### [facility] [address] [address] [address] Andrea Mccarthy Calcium [Mass/Vol] 8.5 mg/dL Normal 8.5-10.1 [facility] Comment on above: Performed By: #### U KIM, MG, PHOS #### [facility] [address] [address] [address] Andrea Mccarthy Chloride [Moles/Vol] 104 mmol/L Normal 98-107 [facility] Comment on above: Performed By: #### U KIM, MG, PHOS #### [facility] [address] [address] [address] Andrea Mccarthy CO2 [Moles/Vol] 29.6 mmol/L Normal 21.0-32.0 [facility] Comment on above: Performed By: #### U KIM, MG, PHOS #### [facility] [address] [address] [address] Andrea Mccarthy Creatinine [Mass/Vol] 1.23 mg/dL Critically high 0.55-1.02 [facility] Comment on above: Performed By: #### U KIM, MG, PHOS #### [facility] [address] [address] [address] Andrea Mccarthy EGFR-AF BURMESE 52 mL/min/1.73m2 Critically low >=60 [facility] Comment on above: Performed By: #### U KIM, MG, PHOS #### [facility] [address] [address] [address] Andrea Mccarthy EGFR-NON AF BURMESE 43 mL/min/1.73m2 Critically low >=60 [facility] Comment on above: Performed By: #### U KIM, MG, PHOS #### [facility] [address] [place] [address] Dr. Andrea Mccarthy Glucose [Mass/Vol] 92 mg/dL Normal 74-106 [facility] Comment on above: Performed By: #### U KIM, MG, PHOS #### [facility] [address] [place] [address] Dr. Andrea Mccarthy Phosphate [Mass/Vol] 3.3 mg/dL Normal 2.6-4.7 [facility] Comment on above: Performed By: #### U KIM, MG, PHOS #### [facility] [address] [place] [address] Dr. Andrea Mccarthy Potassium [Moles/Vol] 3.9 mmol/L Normal 3.5-5.1 [facility] Comment on above: Performed By: #### U KIM, MG, PHOS #### [facility] [address] [place] [address] Dr. Andrea Mccarthy Sodium [Moles/Vol] 141 mmol/L Normal 136-145 [facility] Comment on above: Performed By: #### U KIM, MG, PHOS #### [facility] [address] [place] [address] Dr. Andrea Mccarthy Urea nitrogen [Mass/Vol] 25.0 mg/dL Critically high 7.0-18.0 [facility] Comment on above: Performed By: #### U KIM, MG, PHOS #### [facility] [address] [place] [address] Dr. Andrea Mccarthy UA RANDOM W/MICROSCOPICon BACTERIA NONE SEEN Normal NONE SEEN [facility] Comment on above: Performed By: #### U AMIC #### [facility] [address] [place] [address] Dr. Andrea Mccarthy Bilirubin Ql (U) Negative Normal NEGATIVE [facility] Comment on above: Performed By: #### U AMIC #### [facility] [address] [place] [address] Dr. Andrea Mccarthy CAST NONE SEEN Normal NONE SEEN [facility] Comment on above: Performed By: #### U AMIC #### [facility] [address] [place] [address] Dr. Andrea Mccarthy Clarity (U) CLEAR Normal CLEAR [facility] Comment on above: Performed By: #### U AMIC #### [facility] [address] [place] [address] Dr. Andrea Mccarthy Color (U) YELLOW Normal YELLOW [facility] Comment on above: Performed By: #### U AMIC #### [facility] [address] [place] [address] Dr. Andrea Mccarthy Crystals LM Nom (Urine sed) NONE SEEN Normal NONE SEEN [facility] Comment on above: Performed By: #### U AMIC #### [facility] [address] [place] [address] Dr. Andrea Mccarthy Epithelial cells LM Ql (Urine sed) FEW Abnormal NONE SEEN /RARE [facility] Comment on above: Performed By: #### U AMIC #### [facility] [address] [place] [address] Dr. Andrea Mccarthy Glucose Ql (U) Negative Normal NEGATIVE [facility] Comment on above: Performed By: #### U AMIC #### [facility] [address] [place] [address] Dr. Andrea Mccarthy Hemoglobin Ql (U) TRACE-INTACT Abnormal NEGATIVE [facility] Comment on above: Performed By: #### U AMIC #### [facility] [address] [place] [address] Dr. Andrea Mccarthy Ketones Ql (U) Negative Normal NEGATIVE [facility] Comment on above: Performed By: #### U AMIC #### [facility] [address] [place] [address] Dr. Andrea Mccarthy LEUKOCYTES Negative Normal NEGATIVE [facility] Comment on above: Performed By: #### U AMIC #### [facility] [address] [place] [address] Dr. Andrea Mccarthy MUCOUS TRACE Abnormal NONE SEEN [facility] Comment on above: Performed By: #### U AMIC #### [facility] [address] [address] [address] Andrea Mccarthy Nitrite Ql (U) Negative Normal NEGATIVE [facility] Comment on above: Performed By: #### U AMIC #### [facility] [address] [address] [address] Andrea Mccarthy pH (U) 5.0 [pH] Normal 5-9 [facility] Comment on above: Performed By: #### U AMIC #### [facility] [address] [place] [address] Dr. Andrea Mccarthy RBC 0-2 Normal 0-2 [facility] Comment on above: Performed By: #### U AMIC #### [facility] [address] [place] [address] Dr. Andrea Mccarthy SPEC GRAVITY 1.025 Normal 1.005-<=1.025 [facility] Comment on above: Performed By: #### U AMIC #### [facility] [address] [address] [address] Andrea Mccarthy UA PROTEIN Negative Normal NEGATIVE/ TRACE [facility] Comment on above: Performed By: #### U AMIC #### [facility] [address] [place] [address] Dr. Andrea Mccarthy Urobilinogen Qn (U) 0.2 {Mikel'U}/dL Normal 0.2 - 1. 0 [facility] Comment on above: Performed By: #### U AMIC #### [facility] [address] [address] [address] Andrea Mccarthy WBC NONE SEEN Normal NONE SEEN [facility] Comment on above: Performed By: #### U AMIC #### [facility] [address] [address] [address] Andrea Mccarthy URINE T PROTEIN CREAT RATIOo n 05-21-2022 Protein (U) [Mass/Vol] 21.5 mg/dL Critically high <=12.0 [facility] Comment on above: Performed By: #### U KIM, MG, PHOS #### [facility] [address] [place] [address] Dr. Andrea Mccarthy UR PROT CREAT RAT 0.15 Normal [facility] Comment on above: Performed By: #### U KIM, MG, PHOS #### [facility] [address] [address] [address] Andrea Mccarthy URINE CREAT 144.81 mg/dL Normal 20.00-300.00 [facility] Comment on above: Performed By: #### U KIM, MG, PHOS #### [facility] [address] [address] [address] Andrea Mccarthy VIT B12 AND FOLATEon 023 Cobalamin (Vitamin B12) [Mass/Vol] 1425.0 pg/mL Critically high 193.0-986.0 [facility] Comment on above: Performed By: #### U KIM, MG, PHOS #### [facility] [address] [address] [address] Andrea Mccarthy FOLATE 22.60 ng/mL Normal 8.60-58.90 [facility] Comment on above: Performed By: #### U KIM, MG, PHOS #### [facility] [address] SINUSES WO CONon [...] STEPHEN ROBLES Date: 2022-01-01 07:30 Normal [facility] INSULINon 11-15-2021 Insulin 9.0 uIU/mL Normal 2.6-24.9 [facility] Comment on above: Performed By: #### I NSULIN #### [facility] [address] [address] [address] Andrea Mccarthy PTH INTACTon 11-15-2021 PTH, Intact 43 pg/mL Normal 15-65 [facility] Comment on above: Performed By: #### U KIM, MG, PHOS #### [facility] [address] [address] [address] Andrea Mccarthy VIT D 25-OH LABCORPon 2021 Vitamin D, 25-Hydroxy 85.4 ng/mL Normal 30.0-100.0 [facility] Comment on above: Result Comment: Samina min D deficiency has been defined by the [place] [employer] and an Endocrine Society practice guideline as a level of serum 25-OH vitamin D less than 20 ng/mL (1,2). The Endocrine Society went on to further define vitamin D insufficiency as a level between 21 and 29 ng/mL (2). 1. IOM ([place] [employer]). 2010. Dietary reference intakes for calcium and D. [place]: The National Academies Press. 2. Dagoberto MF, Rachel NC, Edilson MARTINEZ, et al. Evaluation, treatment, and prevention of vitamin D deficiency: an Endocrine Society clinical practice guideline. JCEM. 2010; 96(7):1911-30. Performed By: #### V ITADLC #### [facility] [address] [address] [address] Andrea Mccarthy CBC AUTO DIFFon 11-14-2021 BASO # 0.0 103/ul Normal 0.0-0.1 [facility] Comment on above: Performed By: #### U KIM, MG, PHOS #### [facility] [address] [place] [address] Dr. Andrea Mccarthy Basophils/100 WBC (Bld) 0.6 % Normal 0.2-2.0 [facility] Comment on above: Performed By: #### U KIM, MG, PHOS #### [facility] [address] [place] [address] Dr. Andrea Mccarthy EO # 0.2 103/ul Normal 0.0-0.7 [facility] Comment on above: Performed By: #### U KIM, MG, PHOS #### [facility] [address] [place] [address] Dr. Andrea Mccarthy Eosinophils/100 WBC (Bld) 2.4 % Normal 0.9-7.0 [facility] Comment on above: Performed By: #### U KIM, MG, PHOS #### [facility] [address] [place] [address] Dr. Andrea Mccarthy Erythrocyte distribution width (RBC) [Ratio] 14.0 % Normal 11.0-15.0 [facility] Comment on above: Performed By: #### U KIM, MG, PHOS #### [facility] [address] [place] [address] Dr. Andrea Mccarthy Hematocrit (Bld) [Volume fraction] 35.7 % Critically low 36.0-48.0 [facility] Comment on above: Performed By: #### U KIM, MG, PHOS #### [facility] [address] [place] [address] Dr. Andrea Mccarthy Hemoglobin (Bld) [Mass/Vol] 11.2 g/dL Critically low 12.0-16.0 [facility] Comment on above: Performed By: #### U KIM, MG, PHOS #### [facility] [address] [place] [address] Dr. Andrea Mccarthy IG # 0.02 10e3/ul Normal 0.00-0.03 [facility] Comment on above: Performed By: #### U KIM, MG, PHOS #### [facility] [address] [address] [address] Andrea Mccarthy IG % 0.3 % Normal 0.0-0.5 [facility] Comment on above: Performed By: #### U KIM, MG, PHOS #### [facility] [address] [place] [address] Dr. Andrea Mccarthy LYMPH # 1.8 103/ul Normal 1.2-3.8 [facility] Comment on above: Performed By: #### U KIM, MG, PHOS #### [facility] [address] [place] [address] Dr. Andrea Mccarthy Lymphocytes/100 WBC (Bld) 24.9 % Normal 20.5-60.0 [facility] Comment on above: Performed By: #### U KIM, MG, PHOS #### [facility] [address] [place] [address] Dr. Andrea Mccarthy MANUAL DIFF REQ NO Normal [facility] Comment on above: Performed By: #### U KIM, MG, PHOS #### [facility] [address] [place] [address] Dr. Andrea Mccarthy MCH (RBC) [Entitic mass] 27.3 pg Normal 26.7-34.0 [facility] Comment on above: Performed By: #### U KIM, MG, PHOS #### [facility] [address] [place] [address] Dr. Andrea Mccarthy MCHC (RBC) [Mass/Vol] 31.4 g/dL Normal 29.9-35.2 [facility] Comment on above: Performed By: #### U KIM, MG, PHOS #### [facility] [address] [place] [address] Dr. Andrea Mccarthy MCV (RBC) [Entitic vol] 87.1 fL Normal 81.0-99.0 [facility] Comment on above: Performed By: #### U KIM, MG, PHOS #### [facility] [address] [place] [address] Dr. Andrea Mccarthy MONO # 0.5 103/ul Normal 0.3-0.8 [facility] Comment on above: Performed By: #### U KIM, MG, PHOS #### [facility] [address] [address] [address] Andrea Mccarthy Monocytes/100 WBC (Bld) 7.0 % Normal 1.7-12.0 [facility] Comment on above: Performed By: #### U KIM, MG, PHOS #### [facility] [address] [place] [address] Dr. Andrea Mccarthy NEUT # 4.7 103/ul Normal 1.4-6.5 [facility] Comment on above: Performed By: #### U KIM, MG, PHOS #### [facility] [address] [place] [address] Dr. Andrea Mccarthy Neutrophils/100 WBC (Bld) 64.8 % Normal 43.0-75.0 [facility] Comment on above: Performed By: #### U KIM, MG, PHOS #### [facility] [address] [place] [address] Dr. Andrea Mccarthy Platelet mean volume (Bld) [Entitic vol] 10.1 fL Normal 9.5-13.5 [facility] Comment on above: Performed By: #### U KIM, MG, PHOS #### [facility] [address] [place] [address] Dr. Andrea Mccarthy PLT 309 103/ul Normal 150-450 [facility] Comment on above: Performed By: #### U KIM, MG, PHOS #### [facility] [address] [place] [address] Dr. Andrea Mccarthy RBC 4.10 106/ul Critically low 4.20-5.40 [facility] Comment on above: Performed By: #### U KIM, MG, PHOS #### [facility] [address] [place] [address] Dr. Andrea Mccarthy WBC 7.2 103/ul Normal 4.0-11.0 [facility] Comment on above: Performed By: #### U KIM, MG, PHOS #### [facility] [address] [place] [address] Dr. Andrea Mccarthy FREE THYROXINE INDEX T7on FTI 4.14 Normal 1.30-4.50 [facility] Comment on above: Performed By: #### U KIM, MG, PHOS #### [facility] [address] [address] [address] Andrea Mccarthy T3U 36.0 % Normal 30.0-39.0 [facility] Comment on above: Performed By: #### U KIM, MG, PHOS #### [facility] [address] [address] [address] Anrdea Mccarthy T4 [Mass/Vol] 11.50 ug/dL Normal 4.80-13.90 [facility] Comment on above: Performed By: #### U KIM, MG, PHOS #### [facility] [address] [place] [address] Dr. Andrea Mccarthy GLYCOHEMOGLOBIN A1Con 2021 ADA RECOMMENDATION SEE BELOW Normal [facility] Comment on above: Result Comment: ADA RECOMMENDED LIMIT 4.0 - 6.0 ADA THERAPEUTIC TARGET < 7.0 ACTION SUGGESTED > 7.0 Performed By: #### A 1C #### [facility] [address] [address] [address] Andrea Mccarthy Glucose [Mass/Vol] 137 mg/dL Normal [facility] Comment on above: Performed By: #### A 1C #### [facility] [address] [address] [address] Andrea Mccarthy HbA1c (Bld) [Mass fraction] 6.4 % Critically high 4.5-6.2 [facility] Comment on above: Performed By: #### A 1C #### [facility] [address] [address] [address] Andrea Mccarthy IRONon 11-14-2021 Iron [Mass/Vol] 34.0 ug/dL Critically low 50.0-170.0 [facility] Comment on above: Performed By: #### U KIM, MG, PHOS #### [facility] [address] [address] [address] Andrea Mccarthy LIPID PROFILEon 11-14-2021 CHOL-HDL RATIO NORM SEE BELOW Normal [facility] Comment on above: Result Comment: 3.3 - 4.4 LOW RISK 4.4 - 7.1 AVERAGE RISK 7.1 - 11.0 MODERATE RISK >11.0 HIGH RISK Performed By: #### L IPID, TSH, T7, CMP #### [facility] [address] [address] [address] Andrea Mccarthy Cholesterol [Mass/Vol] 152 mg/dL Normal <=200 [facility] Comment on above: Performed By: #### L IPID, TSH, T7, CMP #### [facility] [address] [address] [address] Andrea Mccarthy Cholesterol in HDL [Mass/Vol] 51 mg/dL Normal 40-60 [facility] Comment on above: Performed By: #### L IPID, TSH, T7, CMP #### [facility] [address] [address] [address] nAdrea Mccarthy Cholesterol in LDL [Mass/Vol] 83.4 mg/dL Normal [facility] Comment on above: Performed By: #### L IPID, TSH, T7, CMP #### [facility] [address] [address] [address] Andrea Mccarthy Cholesterol.total/Ch olesterol in HDL [Mass ratio] 3.0 {ratio} Normal [facility] Comment on above: Performed By: #### L IPID, TSH, T7, CMP #### [facility] [address] [address] [address] Andrea Mccarthy HDL NORMAL > or = 60 mg/dl - LOW CARDIOVASCULAR RISK <40 mg/dl - HIGH CARDIOVASCULAR RISK Normal [facility] Comment on above: Performed By: #### L IPID, TSH, T7, CMP #### [facility] [address] [address] [address] Andrea Mccarthy LDL CALC NORMAL SEE BELOW Normal [facility] Comment on above: Result Comment: <100 mg/dl OPTIMAL 100 - 129 mg/dl NEAR OR ABOVE OPTIMAL 130 - 159 mg/dl BORDERLINE HIGH 160 - 189 mg/dl HIGH >190 mg/dl VERY HIGH Performed By: #### L IPID, TSH, T7, CMP #### [facility] [address] [place] [address] Dr. Andrea Mccarthy Triglyceride [Mass/Vol] 88 mg/dL Normal <=150 [facility] Comment on above: Performed By: #### L IPID, TSH, T7, CMP #### [facility] [address] [place] [address] Dr. Andrea Mccarthy VLDL CALC 17.6 mg/dL Normal [facility] Comment on above: Performed By: #### L IPID, TSH, T7, CMP #### [facility] [address] [place] [address] Dr. Andrea Mccarthy MAGNESIUMon 11-14-2021 Magnesium [Mass/Vol] 2.2 mg/dL Normal 1.8-2.4 [facility] Comment on above: Performed By: #### U KIM, MG, PHOS #### [facility] [address] [place] [address] Dr. Andrea Mccarthy PHOSPHORUSon 11-14-2021 Phosphate [Mass/Vol] 3.0 mg/dL Normal 2.6-4.7 [facility] Comment on above: Performed By: #### U KIM, MG, PHOS #### [facility] [address] [place] [address] Dr. Andrea Mccarthy PROF 14(COMP METB)on 022 Albumin [Mass/Vol] 3.2 g/dL Critically low 3.4-5.0 Th [facility] Comment on above: Performed By: #### L IPID, TSH, T7, CMP #### [facility] [address] [place] [address] Dr. Andrea Mccarthy Albumin/Globulin [Mass ratio] 0.8 {ratio} Normal [facility] Comment on above: Performed By: #### L IPID, TSH, T7, CMP #### [facility] [address] [place] [address] Dr. Andrea Mccarthy ALP [Catalytic activity/Vol] 51 U/L Normal 46-116 [facility] Comment on above: Performed By: #### L IPID, TSH, T7, CMP #### [facility] [address] [address] [address] Andrea Mccarthy ALT [Catalytic activity/Vol] 13 U/L Critically low 14-59 [facility] Comment on above: Performed By: #### L IPID, TSH, T7, CMP #### [facility] [address] [place] [address] Dr. Andrea Mccarthy Anion gap [Moles/Vol] 11.4 mmol/L Normal [facility] Comment on above: Performed By: #### L IPID, TSH, T7, CMP #### [facility] [address] [place] [address] Dr. Andrea Mccarthy AST [Catalytic activity/Vol] 9 U/L Critically low 15-37 [facility] Comment on above: Performed By: #### L IPID, TSH, T7, CMP #### [facility] [address] [place] [address] Dr. Andrea Mccarthy Bilirubin [Mass/Vol] 0.3 mg/dL Normal 0.2-1.0 [facility] Comment on above: Performed By: #### L IPID, TSH, T7, CMP #### [facility] [address] [place] [address] Dr. Andrea Mccarthy Calcium [Mass/Vol] 8.4 mg/dL Critically low 8.5-10.1 Th [facility] Comment on above: Performed By: #### L IPID, TSH, T7, CMP #### [facility] [address] [address] [address] Andrea Mccarthy Chloride [Moles/Vol] 105 mmol/L Normal 98-107 [facility] Comment on above: Performed By: #### L IPID, TSH, T7, CMP #### [facility] [address] [address] [address] Andrea Mccarthy CO2 [Moles/Vol] 27.7 mmol/L Normal 21.0-32.0 [facility] Comment on above: Performed By: #### L IPID, TSH, T7, CMP #### [facility] [address] [address] [address] Andrea Mccarthy Creatinine [Mass/Vol] 1.31 mg/dL Critically high 0.55-1.02 [facility] Comment on above: Performed By: #### L IPID, TSH, T7, CMP #### [facility] [address] [place] [address] Dr. Andrea Mccarthy EGFR-AF BURMESE 49 mL/min/1.73m2 Critically low >=60 [facility] Comment on above: Performed By: #### L IPID, TSH, T7, CMP #### [facility] [address] [place] [address] Dr. Andrea Mccarthy EGFR-NON AF BURMESE 40 mL/min/1.73m2 Critically low >=60 [facility] Comment on above: Performed By: #### L IPID, TSH, T7, CMP #### [facility] [address] [place] [address] Dr. Andrea Mccarthy Globulin (S) [Mass/Vol] 3.9 g/dL Normal [facility] Comment on above: Performed By: #### L IPID, TSH, T7, CMP #### [facility] [address] [place] [address] Dr. Andrea Mccarthy Glucose [Mass/Vol] 97 mg/dL Normal 74-106 [facility] Comment on above: Performed By: #### L IPID, TSH, T7, CMP #### [facility] [address] [place] [address] Dr. Andrea Mccarthy Potassium [Moles/Vol] 4.1 mmol/L Normal 3.5-5.1 [facility] Comment on above: Performed By: #### L IPID, TSH, T7, CMP #### [facility] [address] [place] [address] Dr. Andrea Mccarthy Protein [Mass/Vol] 7.1 g/dL Normal 6.4-8.2 [facility] Comment on above: Performed By: #### L IPID, TSH, T7, CMP #### [facility] [address] [place] [address] Dr. Andrea Mccarthy Sodium [Moles/Vol] 140 mmol/L Normal 136-145 [facility] Comment on above: Performed By: #### L IPID, TSH, T7, CMP #### [facility] [address] [address] [address] Andrea Mccarthy Urea nitrogen [Mass/Vol] 23.0 mg/dL Critically high 7.0-18.0 [facility] Comment on above: Performed By: #### L IPID, TSH, T7, CMP #### [facility] [address] [place] [address] Dr. Andrea Mccarthy Urea nitrogen/Creatinine [Mass ratio] 17.6 mg/mg Normal [facility] Comment on above: Performed By: #### L IPID, TSH, T7, CMP #### [facility] [address] [place] [address] Dr. Andrea Mccarthy TSHon 11-14-2021 TSH 0.032 uIU/mL Critically low 0.358-3.740 [facility] Comment on above: Performed By: #### U KIM, MG, PHOS #### [facility] [address] [place] [address] Dr. Andrea Mccarthy UA RANDOM W/MICROSCOPICon BACTERIA NONE SEEN Normal NONE SEEN [facility] Comment on above: Performed By: #### U KIM, MG, PHOS #### [facility] [address] [place] [address] Dr. Andrea Mccarthy Bilirubin Ql (U) Negative Normal NEGATIVE [facility] Comment on above: Performed By: #### U KIM, MG, PHOS #### [facility] [address] [place] [address] Dr. Andrea Mccarthy CAST NONE SEEN Normal NONE SEEN [facility] Comment on above: Performed By: #### U KIM, MG, PHOS #### [facility] [address] [place] [address] Dr. Andrea Mccarthy Clarity (U) CLEAR Normal CLEAR [facility] Comment on above: Performed By: #### U KIM, MG, PHOS #### [facility] [address] [place] [address] Dr. Andrea Mccarthy Color (U) YELLOW Normal YELLOW [facility] Comment on above: Performed By: #### U KIM, MG, PHOS #### [facility] [address] [address] [address] Andrea Mccarthy Crystals LM Nom (Urine sed) NONE SEEN Normal NONE SEEN [facility] Comment on above: Performed By: #### U KIM, MG, PHOS #### [facility] [address] [address] [address] Andrea Mccarthy Epithelial cells LM Ql (Urine sed) FEW Abnormal NONE SEEN /RARE [facility] Comment on above: Performed By: #### U KIM, MG, PHOS #### [facility] [address] [address] [address] Andrea Mccarthy Glucose Ql (U) Negative Normal NEGATIVE [facility] Comment on above: Performed By: #### U KIM, MG, PHOS #### [facility] [address] [place] [address] Dr. Andrea Mccarthy Hemoglobin Ql (U) TRACE-INTACT Abnormal NEGATIVE [facility] Comment on above: Performed By: #### U KIM, MG, PHOS #### [facility] [address] [place] [address] Dr. Andrea Mccarthy Ketones Ql (U) Negative Normal NEGATIVE [facility] Comment on above: Performed By: #### U KIM, MG, PHOS #### [facility] [address] [place] [address] Dr. Andrea Mccarthy LEUKOCYTES Negative Normal NEGATIVE [facility] Comment on above: Performed By: #### U KIM, MG, PHOS #### [facility] [address] [address] [address] Andrea Mccarthy MUCOUS SMALL Abnormal NONE SEEN [facility] Comment on above: Performed By: #### U KIM, MG, PHOS #### [facility] [address] [place] [address] Dr. Andrea Mccarthy Nitrite Ql (U) Negative Normal NEGATIVE [facility] Comment on above: Performed By: #### U KIM, MG, PHOS #### [facility] [address] [address] [address] Andrea Mccarthy pH (U) 5.5 [pH] Normal 5-9 [facility] Comment on above: Performed By: #### U KIM, MG, PHOS #### [facility] [address] [place] [address] Dr. Andrea Mccarthy RBC 0-2 Normal 0-2 [facility] Comment on above: Performed By: #### U KIM, MG, PHOS #### [facility] [address] [place] [address] Dr. Andrea Mccarthy SPEC GRAVITY 1.020 Normal 1.005-<=1.025 [facility] Comment on above: Performed By: #### U KIM, MG, PHOS #### [facility] [address] [place] [address] Dr. Andrea Mccarthy UA PROTEIN Negative Normal NEGATIVE/ TRACE [facility] Comment on above: Performed By: #### U KIM, MG, PHOS #### [facility] [address] [place] [address] Dr. Andrea Mccarthy Urobilinogen Qn (U) 0.2 {Mikel'U}/dL Normal 0.2 - 1. 0 [facility] Comment on above: Performed By: #### U KIM, MG, PHOS #### [facility] [address] [place] [address] Dr. Andrea Mccarthy WBC NONE SEEN Normal NONE SEEN The [facility] Comment on above: Performed By: #### U KIM, MG, PHOS #### [facility] [address] [place] [address] Dr. Andrea Mccarthy URIC ACID SERUMon 11-14-2021 Urate [Mass/Vol] 5.0 mg/dL Normal 2.6-6.0 [facility] Comment on above: Performed By: #### U KIM, MG, PHOS #### [facility] [address] [place] [address] Dr. Andrea Mccarthy URINE T PROTEIN CREAT RATIOo n 11-14-2021 Protein (U) [Mass/Vol] 22.3 mg/dL Critically high <=12.0 [facility] Comment on above: Performed By: #### U KIM, MG, PHOS #### [facility] [address] [address] [address] Andrea Mccarthy UR PROT CREAT RAT 0.15 Normal [facility] Comment on above: Performed By: #### U KIM, MG, PHOS #### [facility] [address] [address] [address] Andrea Mccarthy URINE CREAT 151.50 mg/dL Normal 20.00-300.00 The [facility] Comment on above: Performed By: #### U KIM, MG, PHOS #### [facility] [address] [address] [address] Andrea Mccarthy Vital Signs Date Time Vital Sign Value Performing Clinician Facility 07-17-2024 17:52-0400 Body height 162.56 cm [facility] 07-17-2024 17:52-0400 Body mass index (BMI) [Ratio] 30.5 kg/m2 [facility] 07-17-2024 17:52-0400 Body temperature 97.8 [degF] [facility] 07-17-2024 17:52-0400 Body weight 80.79 kg [facility] 07-17-2024 17:52-0400 Diastolic blood pressure 87 mm[Hg] [facility] 07-17-2024 17:52-0400 Heart rate 104 /min [facility] 07-17-2024 17:52-0400 Respiratory rate 18 /min [facility] 07-17-2024 17:52-0400 SaO2% (BldA) [Mass fraction] 94 % [facility] 07-17-2024 17:52-0400 Systolic blood pressure 130 mm[Hg] [facility] 06-29-2024 13:34-0400 Body height 162.56 cm [facility] 06-29-2024 13:34-0400 Body mass index (BMI) [Ratio] 30.2 kg/m2 [facility] 06-29-2024 13:34-0400 Body temperature 97.6 [degF] [facility] 06-29-2024 13:34-0400 Body weight 80.05 kg [facility] 06-29-2024 13:34-0400 Diastolic blood pressure 79 mm[Hg] [facility] 06-29-2024 13:34-0400 Heart rate 68 /min [facility] 06-29-2024 13:34-0400 Respiratory rate 19 /min [facility] 06-29-2024 13:34-0400 SaO2% (BldA) [Mass fraction] 97 % [facility] 06-29-2024 13:34-0400 Systolic blood pressure 141 mm[Hg] [facility] 05-12-2024 10:59-0500 Body height 162.56 cm [facility] 05-12-2024 10:59-0500 Body mass index (BMI) [Ratio] 30.2 kg/m2 [facility] 05-12-2024 10:59-0500 Body weight 80 kg [facility] 05-12-2024 10:59-0500 Diastolic blood pressure 80 mm[Hg] [facility] 05-12-2024 10:59-0500 Heart rate 87 /min [facility] 05-12-2024 10:59-0500 Respiratory rate 16 /min [facility] 05-12-2024 10:59-0500 SaO2% (BldA) [Mass fraction] 96 % [facility] 05-12-2024 10:59-0500 Systolic blood pressure 117 mm[Hg] [facility] 05-03-2024 09:59-0500 Body height 162.56 cm [facility] 05-03-2024 09:59-0500 Body mass index (BMI) [Ratio] 30 kg/m2 [facility] 05-03-2024 09:59-0500 Body temperature 97.3 [degF] [facility] 05-03-2024 09:59-0500 Body weight 79.49 kg [facility] 05-03-2024 09:59-0500 Diastolic blood pressure 82 mm[Hg] [facility] 05-03-2024 09:59-0500 Heart rate 110 /min [facility] 05-03-2024 09:59-0500 Respiratory rate 16 /min [facility] 05-03-2024 09:59-0500 SaO2% (BldA) [Mass fraction] 95 % [facility] 05-03-2024 09:59-0500 Systolic blood pressure 121 mm[Hg] [facility] 11-11-2023 12:58-0400 Body height 162.56 cm [facility] 11-11-2023 12:58-0400 Body mass index (BMI) [Ratio] 30 kg/m2 [facility] 11-11-2023 12:58-0400 Body weight 79.37 kg [facility] 11-11-2023 12:58-0400 Diastolic blood pressure 88 mm[Hg] [facility] 11-11-2023 12:58-0400 Systolic blood pressure 136 mm[Hg] [facility] 10-19-2023 12:21-0400 Body height 162.56 cm [facility] 10-19-2023 12:21-0400 Body mass index (BMI) [Ratio] 30.4 kg/m2 [facility] 10-19-2023 12:21-0400 Body temperature 98.3 [degF] [facility] 10-19-2023 12:21-0400 Body weight 80.39 kg [facility] 10-19-2023 12:21-0400 Heart rate 82 /min [facility] 10-19-2023 12:21-0400 Respiratory rate 16 /min [facility] 10-19-2023 12:21-0400 SaO2% (BldA) [Mass fraction] 96 % [facility] 05-21-2023 10:40-0500 Body height 162.56 cm Audie Dionne Other [facility] Other 05-21-2023 10:40-0500 Body mass index (BMI) [Ratio] 29.59 kg/m2 Audie Dionne Other [facility] Other 05-21-2023 10:40-0500 Body temperature 96.3 [degF] Audie Dionne Other [facility] Other 05-21-2023 10:40-0500 Body weight 78.2 kg Audie Dionne Other [facility] Other 05-21-2023 10:40-0500 Diastolic blood pressure 80 mm[Hg] Audie Dionne Other [facility] Other 05-21-2023 10:40-0500 Respiratory rate 18 /min Audie Dionne Other [facility] Other 05-21-2023 10:40-0500 SaO2% (BldA) [Mass fraction] 98 % Audie Dionne Other [facility] Other 05-21-2023 10:40-0500 Systolic blood pressure 118 mm[Hg] Audie Dionne Other [facility] Other 11-19-2022 11:00-0400 Body height 162.56 cm Audie Dionne Other [facility] Other 11-19-2022 11:00-0400 Body mass index (BMI) [Ratio] 28.9 kg/m2 Audie Dionne Other [facility] Other 11-19-2022 11:00-0400 Body temperature 96 [degF] Audie Dionne Other [facility] Other 11-19-2022 11:00-0400 Body weight 76.39 kg Audie Dionne Other [facility] Other 11-19-2022 11:00-0400 Diastolic blood pressure 81 mm[Hg] Audie Dionne Other [facility] Other 11-19-2022 11:00-0400 Respiratory rate 18 /min Audie Dionne Other [facility] Other 11-19-2022 11:00-0400 SaO2% (BldA) [Mass fraction] 98 % Audie Dionne Other [facility] Other 11-19-2022 11:00-0400 Systolic blood pressure 132 mm[Hg] Audie Dionne Other [facility] Other 07-02-2022 14:17-0400 Blood Pressure Location Iván TOMLIN [facility] 07-02-2022 14:17-0400 Diastolic blood pressure 88 mm[Hg] Iván TOMLIN [facility] 07-02-2022 14:17-0400 Heart rate 71 /min Iván TOMLIN [facility] 07-02-2022 14:17-0400 Systolic blood pressure 128 mm[Hg] Iván TOMLIN [facility] 05-29-2022 10:40-0500 Body height 162.56 cm Audie Dionne Other [facility] Other 05-29-2022 10:40-0500 Body mass index (BMI) [Ratio] 28.22 kg/m2 Audie Dionne Other [facility] Other 05-29-2022 10:40-0500 Body temperature 96.3 [degF] Audie Dionne Other [facility] Other 05-29-2022 10:40-0500 Body weight 74.57 kg Audie Dionne Other [facility] Other 05-29-2022 10:40-0500 Diastolic blood pressure 81 mm[Hg] Audie Dionne Other [facility] Other 05-29-2022 10:40-0500 Respiratory rate 18 /min Audie Dionne Other [facility] Other 05-29-2022 10:40-0500 SaO2% (BldA) [Mass fraction] 98 % Audie Dionne Other [facility] Other 05-29-2022 10:40-0500 Systolic blood pressure 125 mm[Hg] Audie Dionne Other [facility] Other 11-21-2021 12:40-0400 Body height 162.56 cm Audie Dionne Other [facility] Other 11-21-2021 12:40-0400 Body mass index (BMI) [Ratio] 28.22 kg/m2 Audie Dionne Other [facility] Other 11-21-2021 12:40-0400 Body temperature 96.8 [degF] Audie Dionne Other [facility] Other 11-21-2021 12:40-0400 Body weight 74.57 kg Audie Dionne Other [facility] Other 11-21-2021 12:40-0400 Diastolic blood pressure 79 mm[Hg] Audie Dionne Other [facility] Other 11-21-2021 12:40-0400 Respiratory rate 18 /min Audie Dionne Other [facility] Other 11-21-2021 12:40-0400 SaO2% (BldA) [Mass fraction] 98 % Audie Dionne Other [facility] Other 11-21-2021 12:40-0400 Systolic blood pressure 117 mm[Hg] Audie Dionne Other [facility] Other 06-01-2021 16:20-0500 Body height 162.56 cm Audie Dionne Other [facility] Other 06-01-2021 16:20-0500 Body mass index (BMI) [Ratio] 30.89 kg/m2 Audie Dionne Other [facility] Other 06-01-2021 16:20-0500 Body temperature 96.5 [degF] Audie Dionne Other [facility] Other 06-01-2021 16:20-0500 Body weight 81.65 kg Audie Dionne Other [facility] Other 06-01-2021 16:20-0500 Diastolic blood pressure 80 mm[Hg] Audie Dionne Other [facility] Other 06-01-2021 16:20-0500 Respiratory rate 18 /min Audie Dionne Other [facility] Other 06-01-2021 16:20-0500 SaO2% (BldA) [Mass fraction] 98 % Audie Dionne Other [facility] Other 06-01-2021 16:20-0500 Systolic blood pressure 119 mm[Hg] Audie Dionne Other [facility] Other 03-27-2021 16:20-0500 Body height 162.56 cm Audie Dionne Other [facility] Other 03-27-2021 16:20-0500 Body mass index (BMI) [Ratio] 31.55 kg/m2 Audie Dionne Other [facility] Other 03-27-2021 16:20-0500 Body temperature 96.5 [degF] Audie Dionne Other [facility] Other 03-27-2021 16:20-0500 Body weight 83.37 kg Audie Dionne Other [facility] Other 03-27-2021 16:20-0500 Diastolic blood pressure 80 mm[Hg] Audie Dionne Other [facility] Other 03-27-2021 16:20-0500 Respiratory rate 18 /min Audie Dionne Other [facility] Other 03-27-2021 16:20-0500 SaO2% (BldA) [Mass fraction] 99 % Audie Dionne Other [facility] Other 03-27-2021 16:20-0500 Systolic blood pressure 119 mm[Hg] Audie Dionne Other [email or web address] Other Encounters Encounter Date Encounter Type Care Provider Facility Start: 07-17-2024 End: 07-17-[address] [facility] Work Phone: Start: 07-17-2024 End: 07-17-2024 Patient encounter procedure [facility] Work Phone: Start: 06-29-2024 End: 06-29-[address] [facility] Work Phone: Start: 06-29-2024 End: 06-29-2024 Patient encounter procedure [facility] Work Phone: Start: 05-12-2024 End: 05-12-2024 ambulatory [facility] Work Phone: Start: 05-12-2024 End: 05-12-2024 Patient encounter procedure [facility] Work Phone: Start: 05-05-2024 Non-patient / Non-visit [facility] Work Phone: Start: 05-03-2024 End: 05-03-[address] [facility] Work Phone: Start: 05-03-2024 End: 05-03-2024 Patient encounter procedure [facility] Work Phone: Start: 11-11-2023 End: 11-11-[address] [facility] Work Phone: Start: 11-11-2023 End: 11-11-2023 Patient encounter procedure [facility] Work Phone: Start: 11-07-2023 Non-patient / Non-visit [facility] Work Phone: Start: 10-19-2023 End: 10-19-2023 ambulatory [facility] Work Phone: Start: 10-19-2023 End: 10-19-2023 Patient encounter procedure [facility] Work Phone: Start: 05-21-2023 End: 05-21-2023 ambulatory Audie Dionne Other [facility] Other Start: 05-21-2023 Office outpatient vi sit 25 minutes Audie Dionne [facility] Start: 11-19-2022 End: 11-19-2022 ambulatory Audie Dionne Other [facility] Other Start: 11-19-2022 Office outpatient vi sit 15 minutes Audie Dionne [facility] Start: 09-06-2022 ambulatory YARITZA LOPEZ Facility: Start: 07-17-2022 End: 07-18-2022 ambulatory Iván TOMLIN Facility:[facility] Start: 07-17-2022 End: 07-17-2022 Patient encounter procedure Iván TOMLIN [facility] Start: 07-07-2022 End: 07-08-[address] IVÁN TOMLIN . Facility: Start: 07-02-2022 End: 07-03-2022 ambulatory MD AUDIE TRUONG Facility:[facility] Start: 07-02-2022 End: 07-02-2022 Patient encounter procedure Iván TOMLIN [facility] Start: 05-31-2022 ambulatory MD AUDIE TRUONG Facility :[facility] Start: 05-29-2022 End: 05-29-2022 ambulatory Audie Dionne Other [facility] Other Start: 05-29-2022 Office outpatient vi sit 25 minutes Audie Dionne [facility] Start: 05-21-2022 End: 05-22-2022 ambulatory YARITZA LOPEZ Facility:[facility] Start: 12-30-2021 End: 12-31-2021 ambulatory YARITZA LOPEZ Facility:[facility] Start: 11-21-2021 End: 11-21-2021 ambulatory Audie Dionne Other [facility] Other Start: 11-21-2021 Office outpatient vi sit 25 minutes Audie Dionne [facility] Start: 11-14-2021 End: 11-15-2021 ambulatory AUDIE DIONNE Facility:[facility] Start: 06-02-2021 End: 06-02-2021 ambulatory Audie Dionne Other [facility] Other Start: 06-02-2021 Telephone encounter Audie Dionne [facility] Start: 06-01-2021 End: 06-01-2021 ambulatory Audie Dionne Other [facility] Other Start: 06-01-2021 Office outpatient vi sit 25 minutes Audie Dionne [facility] Start: 03-27-2021 End: 03-27-2021 ambulatory Audie Dionne Other [facility] Other Start: 03-27-2021 Office outpatient ne w 45 minutes Audie Dionne [facility] Procedures Date Procedure Procedure Detail Performing Clinician Start: 01-08-2019 Esophagogastroduodenoscopy Iván TOMLIN Abdominal hysterectomy Clarence TOMLIN Appendectomy Iván TOMLIN Colonoscopy Iván TOMLIN Plan of Treatment Date Care Activity Detail Author Renal function 1999 panel - Serum or Plasma [facility] enter Renal function 1999 panel - Serum or Plasma [facility] enter [facility] Payers Date Payer Category Payer Private Health Insurance [id number] 1950 Unknown [id number] 2.16.8 [id number] 1950 Unknown [id number] 2.16.8 [id number] 1950 Unknown [id number] 2.16.84 [id number] 1950 Unknown [id number] 2.16.84 [id number] 1950 Unknown [id number] 2.16.84 [id number] 1950 Unknown [id number] 2.16.84 [id number] 1950 Unknown [id number] 2.16.84 [id number] 1950 Unknown [id number] 2.16.84 [id number] Self-pay Self Pay [id number] Unknown [id number] Social History Date Type Detail [facility] Start: 1950 Sex Assigned At Female F [facility] Sex Assigned At [facility] Start: 07-02-2022 End: 10-19-2023 Tobacco smoking status Never smoked tobacco (finding) [facility] Tobacco smoking status Never [facility] Start: 05-03-2024 End: 07-17-2024 Sex Female (finding) [facility] Goals Date Patient Goal Desired Activity /State Functional Status Date Assessment Result Facility 07-02-2022 Functional Status N/A [facility] Clinical Notes 03-27-2021 to 05-03-2024 Note [...] Apr 10:48am Secondary hyperparathyroidism acute April 10:48am [facility] Work Phone: 1(457) 827-336201-12-2025 Evaluation note* Diagnosis Onset Date Resolution Status [...] 10:48am Viral URI acute June 29 1:17pm [facility] Work Phone: 1(424) 785-693801-30-2024 Evaluation note* Encounter Date Diagnosis Assessment Notes [...] stain. Monitor LFTs and lipid profile periodically. [facility] Other 07-31-2023 Evaluation note* Encounter Date Diagnosis [...] advised to have repeat in 5 yrs [facility] Other 03-28-2023 Note [id number]:[id number] 07-17-2022 Hospital Discharge instructions Patient Education [...] Address: [facility] [address] [place] [address] Business (1) When: Unknown Comments:Call for any problems. [facility]03-28-2023 NoteCustom Cystoscopy ? Voiding after the [...] if you have a fever over 100 degrees.[facility] 07-02-2022 NoteChief Complaint Pt here for [...] [facility] [address], [place] [address]- Additional Instructions: schedule cysto, CHRIS Patient Education [...] tab(s), Oral, q6hr fluticasone 0.05 mg/inh Nasal Gilbert, 2 spray(s), Nasal, Daily (more content not included)...[facility]Result Comment: Electronically Signed By: Iván TOMLIN MD\.br\Date and Time Signed: 07/02/22 14:52 EDT\.br\Electronically Co-Signed By: Moira Estrada\.br\Date and Time Co-Signed: 07/02/22 14:50 [id number] Hospital Discharge instructions Patient Education 07/02/2022 14:22:27 [...] Follow these instructions at home: Medicines Take [id number] and prescription medicines only as told by [...] or the blood stops without treatment. Take [id number] and prescription medicines only as told by your health care provider. Drink enough fluid to keep your urine clear or pale yellow. This information is not intended to replace advice given to you by your health care provider. Make sure you discuss any questions you have with your health care provider. Document Released: 04/08/2006 Document Revised: 09/02/2019 Document Reviewed: 05/11/2017 [employer] Patient Education 2019 [place]. Follow Up Care 05/31/2022 13:31:32 With:KELLY BLACKMON, Iván Hsu, URL Address: [facility] [address] , [place] [address]- When: Unknown [facility] Evaluation note* Encounter Date Diagnosis [...] advised to have repeat in 5 yrs [facility] Other 08-02-2022 Evaluation note* Encounter Date Diagnosis [...] stain. Monitor LFTs and lipid profile periodically. [facility] Other 02-10-2022 Evaluation note* Encounter Date Diagnosis [...] stain. Monitor LFTs and lipid profile periodically. [facility] Other 12-06-2021 Evaluation note* Encounter Date Diagnosis [...] PCP. Mar, Dyslipidemia (ICD-10 - E78.5) Continue [facility]. Monitor LFTs and lipid profile periodically. [facility] Other Evaluation + Plan note Future Appointments Appointment Date:07/10/2022 11:30:00 AM Scheduled Provider: Location:[facility] Appointment Type:Urology CALL PAT FT Appointment Date:07/17/2022 08:45:00 AM Scheduled Provider: Location:[facility] Appointment Type:Urology FT Diagnostic Tests Pending * Urine Cytology ([facility]) 07/02/22 [facility] evaluation noteNo Assessments Information Available [facility] note[facility] InformationNort [employer] Other Evaluation noteNo assessment information available [facility] Work Phone: Evaluation note* Diagnosis Onset Date Resolution Status Maxillary sinusitis, acute a cute Anemia of renal disease acut e CKD (chronic kidney disease) stage 3, GFR 30-59 ml/min acute Hyperlipidemia acute [id number] acute Hypomagnesemia acute Secondary hyperparathyroidism acute [facility] Work Phone: [facility] general Narrative - Reported* Type Description Date Medical History HTN Medical History Hypothyroidism Medical History hyperlipidemia Medical History acid reflux Medical History anxiety Medical History PRE DIABETIC Medical History mixed hypercholestolemia Medical History CKD STAGE 3 Medical History INSOMNIA Surgical History hysterectomy, total with BSO Surgical History fallopian tube removed Hospitalization History see above hx Hospitalization History N&V [facility] Other [facility] Narrative - Reported* Type Description Date [...] History see above hx Hospitalization History N&V [facility] Other Hospital course Narrative No data available for this section [facility] progress note No data available for this section [facility] Summary Purpose Family History Relationship Condition [...] disease) stage 3, GFR 30-59 ml/min Hyperlipidemia [id number] Hypomagnesemia Secondary hyperparathyroidism Chief Complaint Admit Date [...] Member Role Status Dates Yaritza Lopez SENIOR ADVISOR-C Primary Care Provider Active Start: May 05, [...] Member Role Status Dates Yaritza Lopez SENIOR ADVISOR-C Primary Care Provider Active Start: June 29, 2024 End: June 29, 2024 Marianne Ragsdale APRN Attending Provider Active Start: June 29, 2024 End: June 29, 2024 Team Status: Inactive Member Role Status Dates Yaritza Lopez SENIOR ADVISOR-C Primary Care Provider Active Start: July 17, 2024 End: July 17, 2024 Juani Gagnon APRN Attending Provider Active Start: July 17, 2024 End: July 17, 2024 INFORMATION SOURCE (unrecogn ized section and content) DATE CREATED AUTHOR 07/24/2022 [facility] DATE CREATED AUTHOR AUTHOR'S MAURICE ATDESI 09/05/2022 [...] BE BASED ON THE PRIMARY CLINICAL RECORDS. [facility] [employer] provides no warranty or guarantee of the accuracy or completeness of information in this document.
[2024-11-04 08:14] LABS: Protein Creatinine Ratio Urine 0.14; Total Protein Urine Random 40.1 mg/dL (<=11.9)
[2024-11-04 08:24] LABS: Hematocrit 37.6 % (36.0-48.0); Hemoglobin 11.9 g/dL (12.0-16.0); Mean Corpuscular HGB Conc 31.6 g/dL (29.9-35.2); Mean Corpuscular Hemoglobin 27.8 pg (26.7-34.0); Mean Corpuscular Volume 87.9 fL (81.0-99.0); Platelet Count 118 10^3/uL (150-450); Red Blood Count 4.28 10^6/uL (4.20-5.40); White Blood Count 8.7 10^3/uL (4.0-11.0)
[2024-11-04 08:25] LABS: Glucose Urine UA NEGATIVE (NEGATIVE)
[2024-11-04 08:34] LABS: Albumin Level 3.1 g/dL (3.4-5.0); Anion Gap 16.2; Blood Urea Nitrogen 20.0 mg/dL (7.0-18.0); Calcium 8.2 mg/dL (8.5-10.1); Carbon Dioxide 24.8 mmol/L (21.0-32.0); Chloride 106 mmol/L (98-107); Estimated GFR (African America 43 (>=60 mL/min/1.73m^2); Estimated GFR (Non-African Ame 35 (>=60 mL/min/1.73m^2); Glucose 107 mg/dL (74-106); Magnesium 1.9 mg/dL (1.8-2.4); Potassium 4.0 mmol/L (3.5-5.1); Sodium 143 mmol/L (136-145); Uric Acid 5.3 mg/dL (2.6-6.0)
[2024-11-04 08:35] LABS: Iron 38.0 ug/dL (50.0-170.0); Percent Iron Saturation 13.5 %; Total Iron Binding Capacity 281.0 ug/dL (250.0-450.0)
[2024-11-04 08:48] LABS: Cast Seen? NONE SEEN #/LPF (NONE SEEN); Crystals Seen? None Seen #/HPF (None Seen)
== END 2024-11-04 07:43 | disposition home or self-care (01) ==
LOC: LAB 07:44
PROVIDERS: PCP Nurse Practitioner Family; Visit Provider Internal Medicine
DX: E83.42 Hypomagnesemia (principal); R31.29 Other microscopic hematuria; N18.9 Chronic kidney disease, unspecified; D63.1 Anemia in chronic kidney disease; E78.5 Hyperlipidemia, unspecified; N25.81 Secondary hyperparathyroidism of renal origin
CPT/HCPCS: 36415; 80069; 81001; 82306; 82570; 82728; 83540; 83550; 83735; 83970; 84156; 84550; 85027

== ENCOUNTER 2024-11-24 08:53 | Outpatient (RCR) | payer MEDICARE, SELFPAY ==
--- OUTSIDE RECORDS SUMMARY | 2024-11-12 07:27 | XMS_ITS | Continuity of Care Document ---
Author Organization [facility] Address [address] [place] [address] Phone Care Team Providers Care Health Plan Advisor Name Role Phone Yaritza Osorio NP-C Primary Care Provider Bryan Benjamin Attending Provider [phone] Care Teams Patient Care Team Team Status: Active Member Role Status Dates Yaritza Osorio NP-C Primary Care Provider Active Patient Care Team Team Status: Active Member Role Status Dates Yaritza Osorio NP-C Primary Care Provider Active Start: November 04, 2024 Audie Benjamin MD Attending Provider Active Start : November 04, 2024 Patient Care Team Team Status: Inactive Member Role Status Dates Yaritza Osorio NP-C Primary Care Provider Active Start: November 12, 2024 End: November 12, 2024 Audie Benjamin MD Attending Provider Active Start : November 12, 2024 End: November 12, 2024 Chief Complaint and Reason for Visit Chief Complaint Admit Date RENAL 6 MONTH F/U November 12, 2024 11:0 0am Reason for Visit Admit Date Anemia of renal disease November 12, 2024 11:00am CKD (chronic kidney disease) stage 3, GF R 30-59 ml/min November 12, 2024 11:00am Hyperlipidemia November 12, 2024 11:0 0am Hypertensive chronic kidney disease with stage 1 through stage 4 chronic ki November 12, 2024 11:00am Hypomagnesemia November 12, 2024 11:0 0am Microscopic hematuria November 12, 2024 11 :00am Secondary hyperparathyroidism November 12, 2024 11:00am Thrombocytopenia November 12, 2024 11:0 0am Reason for Referral Referring Provider Name Referring Provider Address Referring Provider Phone Referral Date Requested Appointment Date Referral Reason Audie Benjamin [address] [place] [address] Work Phone: November 12, 2024 D69.6 - Thrombocytopeni a, unspecified November 12, 2024 D69. 6 - Thrombocytopeni a, unspecified Allergies, Adverse Reactions, Alerts Allergen Type Severity Reaction Last Updated Verified Status No Known Allergies Allergy Unknown November 12, 2024 8:33a m Yes Active Social History Smoking Status Status Start Date End Date Date of Observa tion Never smoked tobacco (finding) October 19, 2023 12:30pm Observation Status Observation Response Date of Response Legal Sex Female (finding) Sex Assigned At Female [birth year] Family History Relationship Condition Age at Onset Recorded Date/T belle brother Hypertension Unknown father Unknown Parkinson's disease Unknown Family history of mental disorder Unknown mother Family history of mental disorder Unknown Unknown Hypertension Unknown Problems Active Problems Medical Problem Onset Date Status Secondary hyperparathyroidism Unknown Ac tive Maxillary sinusitis, acute Unknown Activ e CKD (chronic kidney disease) stage 3, GFR 30-59 ml/min Unknown Active Anxiety Unknown Active Hypertensive chronic kidney disease with stage 1 through stage 4 chronic kidney disease, or unspecified chronic kidney disease Unknown Active Hyperlipidemia Unknown Active Microscopic hematuria Unknown Active Thrombocytopenia Unknown Active Viral URI Unknown Active Anemia of renal disease Unknown Active Hypomagnesemia Unknown Active Medications Medication Status Dose Units Route Directions Qty Days St art Date Stop Date End Date Instructions Adherence Magnesium Oxide 400 mg magnesium capsule Active 400 MG PO Daily 90 November 11, 2023 12:00a m Complies with drug therapy Levothyroxi ne 150 mcg tablet Active 150 MCG PO Daily October 19, 2023 12:00a m Complies with drug therapy Omeprazole 40 mg capsule,del ayed release(DR/ EC) Active 40 MG PO Daily October 19, 2023 12:00a m Complies with drug therapy Bupropion Hcl 300 mg tablet extended release 24 hr Active 300 MG PO Daily October 19, 2023 12:00a m Complies with drug therapy Losartan 100 mg tablet Active 100 MG PO Daily October 19, 2023 12:00a m Complies with drug therapy Lovastatin 40 mg tablet Active 40 MG PO Daily October 19, 2023 12:00a m Complies with drug therapy Raloxifene 60 mg tablet Active 60 MG PO Daily October 19, 2023 12:00a m Complies with drug therapy Alendronate 70 mg tablet Active 70 MG PO every week October 19, 2023 12:00a m Complies with drug therapy Montelukast 10 mg tablet Discont inued 1 TAB PO Daily October 19, 2023 12:00a m Aprua 2024 11:04 am FreeTextSi Tablet orally daily; Note: Source Status: Taking; Provider: Cassidy Bronson ( ) Calcium Carbonate (Calcium 600) 600 mg calcium (1,500 mg) tablet Discont inued 1200 MG PO Daily October 19, 2023 12:00a m 2024 11:53 am Cholecalcif lily (Vitamin D3) 50 mcg (2,000 unit) capsule Active 50 MCG PO Daily October 19, 2023 12:00a m Complies with drug therapy Amoxicillin -Pot Clavulanate 875-125 mg tablet Discont inued 1 TAB PO Every 12 hours 20 October 19, 2023 12:00a m November 11, 2023 1:01p m Acetaminoph en 325 mg capsule Active 325 MG PO Every 6 hours as needed 2024 1:00am Complies with drug therapy Multivitami n (Daily Multi-Vitam in) tablet Active 2 TAB PO Daily 2024 1:00am Complies with drug therapy Methylsulfo nylmethane (Msm) 1,000 mg capsule Active 1000 MG PO Twice daily 2024 1:00am Complies with drug therapy Fluticasone Propionate 50 mcg/actuati on spray,suspe nsion Discont inued INTRAN MARICHUY 2024 1:00am 2024 11:59 am Triamcinolo ne Acetonide 0.1 % ointment Discont inued APPLIC TOPICA L 2024 1:00am 2024 11:59 am Trazodone 50 mg tablet Discont inued 50 MG PO Daily at bedtime 2024 1:00am November 12, 2024 11:06 am Amoxicillin -Pot Clavulanate 875-125 mg tablet Discont inued 1 TAB PO Twice daily 20 10 2024 1:00am July 17, 2024 5:46p m Fluticasone Propionate 50 mcg/actuati on spray,suspe nsion Active INTRAN MARICHUY as needed 2024 11:53a m Complies with drug therapy Triamcinolo ne Acetonide 0.1 % ointment Active APPLIC TOPICA L as needed 2024 11:54a m Complies with drug therapy Ferrous Sulfate 325 mg (65 mg iron) tablet Active 325 MG PO Every 48 hours November 12, 2024 12:00a m Complies with drug therapy Valacyclovi r 1 gram tablet Discont inued 1000 MG PO Q8H 09 11July 17, 2024 12:00a m November 12, 2024 11:06 am Methylpredn isolone (Medrol (Daniel)) 4 mg tablets,dos e pack Discont inued 0 PO per package directions July 17, 2024 12:00a m November 12, 2024 11:05 am PO PER PKG DIR for 6 days Ondansetron 4 mg tablet,disi ntegrating Active 4 MG PO Every 8 hours as needed for nausea and vomiting 6 2 July 22, 2024 12:00a m Complies with drug therapy Relevant Diagnostic Tests and/or Laboratory Data Laboratory Results Test Collection Date/Time Result Date/Time Result Interpretation Reference Range Result Comment Performing Site Urine Random Creatini ne November 04, 2024 7:47am November 04, 2024 7:47am 288.44 mg/dL 20.00-300. 00 Urine Other Casts November 04, 2024 7:47am NONE SEEN #/LPF NONE SEEN Parathyr oid Hormone (Intact) November 04, 2024 7:55am November 04, 2024 7:55am 124 pg/mL Abnormal (applies to non-numeric results) 15-65 Performed at: [address] [id number] b Director: Rich Camejo PhD, Phone: [phone] Hematocr it November 04, 2024 7:55am November 04, 2024 7:55am 37.6 % 36.0-48.0 Magnesiu m Level November 04, 2024 7:55am November 04, 2024 7:55am 1.9 mg/dL 1.8-2.4 Uric Acid November 04, 2024 7:55am November 04, 2024 7:55am 5.3 mg/dL 2.6-6.0 Anion Gap November 04, 2024 7:55am November 04, 2024 7:55am 16.2 Iron Saturati on November 04, 2024 7:55am November 04, 2024 7:55am 13.5 % 25-[place] xy Vitamin D Total November 04, 2024 7:55am November 04, 2024 7:55am 70.3 ng/mL <20 ng/mL Vit D [id number] -<30 ng/mL Vit D insufficien t30-100 ng/mL Vit D sufficient> 100 ng/mL Potential Toxicity Miscella neous Test November 04, 2024 7:55am November 04, 2024 7:55am COMMENT . Test Ordered: [id number] FerritinFer ritin 101 ng/mL Reference Range: 15-150Perfo rmed at: - [facility] [id number] [place], [place] [id number] Director: Rich Camejo PhD, Phone: [phone] Urine Protein/ Creatini ne Ratio November 04, 2024 7:47am November 04, 2024 7:47am 0.14 Urine Other Crystals November 04, 2024 7:47am None Seen #/HPF None Seen Hemoglob in November 04, 2024 7:55am November 04, 2024 7:55am 11.9 g/dL Below low normal 12.0-16.0 Albumin November 04, 2024 7:55am November 04, 2024 7:55am 3.1 g/dL Below low normal 3.4-5.0 Iron Level November 04, 2024 7:55am November 04, 2024 7:55am 38.0 ug/dL Below low normal 50.0-170.0 Urine Random Total Protein November 04, 2024 7:47am November 04, 2024 7:47am 40.1 mg/dL Above high normal <=11.9 Urine Bacteria November 04, 2024 7:47am NONE SEEN #/HPF NONE SEEN Mean Corpuscu lar Hemoglob in November 04, 2024 7:55am November 04, 2024 7:55am 27.8 pg 26.7-34.0 BUN/Crea tinine Ratio November 04, 2024 7:55am November 04, 2024 7:55am 13.8 Total Iron Binding Capacity November 04, 2024 7:55am November 04, 2024 7:55am 281.0 ug/dL 250.0-450. 0 Urine Bilirubi n November 04, 2024 7:47am NEGATIVE NEGATIVE Mean Corpuscu lar Hemoglob in Concent November 04, 2024 7:55am November 04, 2024 7:55am 31.6 g/dL 29.9-35.2 Blood Urea Nitrogen November 04, 2024 7:55am November 04, 2024 7:55am 20.0 mg/dL Above high normal 7.0-18.0 Urine Occult Blood November 04, 2024 7:47am TRACE-I NEGATIVE Mean Corpuscu lar Volume November 04, 2024 7:55am November 04, 2024 7:55am 87.9 fL 81.0-99.0 Calcium Level November 04, 2024 7:55am November 04, 2024 7:55am 8.2 mg/dL Below low normal 8.5-10.1 Urine Appearan ce November 04, 2024 7:47am CLEAR CLEAR Mean Platelet Volume November 04, 2024 7:55am November 04, 2024 7:55am 12.1 fL 9.5-13.5 Chloride Level November 04, 2024 7:55am November 04, 2024 7:55am 106 mmol/L 98-107 Urine Color November 04, 2024 7:47am YELLOW YELLOW Platelet Count November 04, 2024 7:55am November 04, 2024 7:55am 118 10 3/uL Below low normal 150-450 Carbon Dioxide Level November 04, 2024 7:55am November 04, 2024 7:55am 24.8 mmol/L 21.0-32.0 Urine Glucose (UA) November 04, 2024 7:47am NEGATIVE mg/dL NEGATIVE Red Blood Count November 04, 2024 7:55am November 04, 2024 7:55am 4.28 10 6/uL 4.20-5.40 Creatini ne November 04, 2024 7:55am November 04, 2024 7:55am 1.45 mg/dL Above high normal 0.55-1.02 Urine Ketones November 04, 2024 7:47am NEGATIVE mg/dL NEGATIVE Red Cell Distribu tion Width November 04, 2024 7:55am November 04, 2024 7:55am 14.4 % 11.0-15.0 Estimate d GFR ( ) November 04, 2024 7:55am November 04, 2024 7:55am 43 Below low normal >=60 mL/min/1.7 3m 2 Urine Leukocyt e Esterase November 04, 2024 7:47am NEGATIVE NEGATIVE Correcte d White Blood Count November 04, 2024 7:55am November 04, 2024 7:55am 8.7 10 3/uL 4.0-11.0 Estimate d GFR (Non-Afr ican Danish November 04, 2024 7:55am November 04, 2024 7:55am 35 Below low normal >=60 mL/min/1.7 3m 2 Urine Mucus November 04, 2024 7:47am NONE SEEN NONE SEEN Glucose Level November 04, 2024 7:55am November 04, 2024 7:55am 107 mg/dL Above high normal 74-106 Urine Nitrite November 04, 2024 7:47am NEGATIVE NEGATIVE Potassiu m Level November 04, 2024 7:55am November 04, 2024 7:55am 4.0 mmol/L 3.5-5.1 Urine pH November 04, 2024 7:47am 6.0 5.0-9.0 Sodium Level November 04, 2024 7:55am November 04, 2024 7:55am 143 mmol/L 136-145 Urine Protein November 04, 2024 7:47am TRACE mg/dL NEG/TRACE Phosphor us Level November 04, 2024 7:55am November 04, 2024 7:55am 2.5 mg/dL Below low normal 2.6-4.7 Urine RBC November 04, 2024 7:47am 0-2 #/HPF 0-2 Urine Specific [place] November 04, 2024 7:47am 1.025 1.005-1.02 5 Urine Squamous Epitheli al Cells November 04, 2024 7:47am FEW #/LPF Abnormal (applies to non-numeric results) NONE/RARE Urine Urobilin ogen November 04, 2024 7:47am 0.2 EU/dL 0.2-1.0 Urine WBC November 04, 2024 7:47am 0-2 #/HPF Abnormal (applies to non-numeric results) NONE SEEN Vital Signs Vital Reading Result Reference Range Collection Date/Time Height 64 [in_i] November 12, 2024 11:02am Weight 80.00 kg November 12, 2024 11:02am Body Temperature 97.1 [degF] 97.6-99.0 November 12, 2024 11:02am Heart Rate 103 /min 60-100 November 12, 2024 11:02am Respiratory rate 18 /min 12-November 12, 2024 11:02am Oxygen saturation by Pulse oximetry 98 % 95-100 November 12, 2024 11:0 2am BP Systolic 135 mm[Hg] 100-140 November 12, 2024 11:02am BP Diastolic 92 mm[Hg] 60-100 November 12, 2024 11:02am BMI (Body Mass Index) 30.2 kg/m2 October 212024 11:02am Advance Directives Advance Directive Response Recorded Date/ Time Advance Directives No November 16 4:06pm Insurance Providers Guarantor Peg Burroughs Address [address] [address] Contact Info. Home Phone: Payer Policy Id Subscriber's Name Subscriber Id Effectiv e Date Expiration Date [facility] [id number] Meño Spencer [id number] Encounters Encounter Location(s) Arrival/Admit Date Discharge/Depart Date Provider(s) Non-patient / Non-visit -[facility] November 04, 2024 7:47christianne Benjamin MD Departed Physician/Prov ider Office Visit -[facility] November 12, 2024 11:00am November 12, 2024 11:26am Audie Benjamin MD Recent Diagnosis Onset Date Admit Date Anemia of renal disease Unknown October 11:00am CKD (chronic kidney disease) stage 3, GFR 30-59 ml/min Unknown November 12, 2024 11:00am Hyperlipidemia Unknown November 12, 2024 11:00am Hypertensive chronic kidney disease with stage 1 through stage 4 chronic ki Unknown November 12, 2024 11:00am Hypomagnesemia Unknown November 12, 2024 11:00am Microscopic hematuria Unknown November 12, 2024 11:00am Secondary hyperparathyroidism Unknown Ju ly 2024 11:00am Thrombocytopenia Unknown November 12, 2024 11:00am Assessments Diagnosis Onset Date Resolution Status Admit Date Anemia of renal disease acute J barby 2024 11:00am CKD (chronic kidney disease) stage 3, GFR 30-59 ml/min acute November 12, 025 11:00am Hyperlipidemia acute November 12, 2024 11:00am Hypertensive chronic kidney disease with stage 1 through stage 4 chronic ki acute November 12, 2024 11:00am Hypomagnesemia acute November 12, 2024 11:00am Microscopic hematuria acute Oct 11:00am Secondary hyperparathyroidism acute November 12, 2024 11:00am Thrombocytopenia acute October 11:00am Plan of Treatment Author Audie Benjamin [facility] Authored November 12, 2024 11:2 5am She has CKD likely due to lo ngstanding hypertension. Her serum creatinine fluctuates between 1.3-1.5 mg/dl. Her renal US showed right renal cyst. She has no evidence of hematuria and proteinuria. I discussed with her the importance of good HTN control to slow down the progression of CKD. Blood pressure is controlled and she appears to be euvolemic. Will Continue current antihypertensive medication. I have advised her to monitor blood pressure at home and call office if stays above 140 over 90 mmHg. MBD parameters including calcium, phosphorus, PTH and vitamin D are within the goal. Continue calcium and vitamin D. Hemoglobin is within the goal but she has low iron stores. I will prescribe oral iron every other day. 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 Continue oral Magnesium oxide 400 mg daily Will continue statins. Continue to follow with PCP for monitoring of LFTs and lipid profile. She was seen by urologist in the past and had a workup which was unremarkable as per patient. She has a thrombocytopenia due to the unclear etiology. She reported to have a easy bruising. Will refer to the hematology due to the persistent thrombocytopenia and declining platelets. Future Tests Future scheduled test information is unavailable Pending Tests Test Name Ordered Date Scheduled Date Renal Function Panel November 12, 2024 11:21am 6 M [facility] Future Visits Future appointment information is unavailable Referrals to Other Providers Reason for Referral Referral Start Date Provider Provider Contact Information Provider Address D69.6 - Thrombocytopenia, unspecified November 12, 2024 Yi Durham MD Work Phone: [phone] [facility] [id number] Future Procedures Procedure Name Ordered Date Scheduled Date Dipstick and Microscopic November 12, 2024 11:21am 6 Months Hemogram CBC Without Diff November 12, 2024 11:21a m 6 Months Iron and TIBC Profile November 12, 2024 11:21am 6 Months Ferritin November 12, 2024 11:21am 6 Months Magnesium November 12, 2024 11:21am 6 Months Protein Creat Ratio Ur Random November 12, 2024 11 :21am 6 Months Parathyroid Hormone Intact November 12, 2024 11:21 am 6 Months Uric Acid November 12, 2024 11:21am 6 Months Vitamin D 25 Hydroxy Total November 12, 2024 11:21 am 6 Months Future Medications Future medication information is unavailable Patient Instructions Patient instructions are unavailable Hospital Discharge Instructions Ambulatory Orders* Referral to Hematology Time Frame: 11/12/24, Location: None Selected
--- OUTSIDE RECORDS SUMMARY | 2024-11-24 09:02 | XMS_ITS | CCD ---
Author Organization [facility]ini[facility] Care Team Providers Care Cooking Chef Name Role Phone Audie Truong Unavailable YARITZA PEPPER Primary Care Physician MD AUDIE TRUONG Referring Unavailable Iván TOMLIN Attending Unavailable KELLY, Iván Hsu Referring Unavailable Iván TOMLIN Attending Unavailable TOMLIN, Iván Hsu Admitting Unavailable JOHN, YARITZA Attending Unavailable JOHN, [...] AUDIE Attending Unavailable JOHN, YARITZA Attending Unavailable MURJORGE, DR MONTENEGRO Referring Unavailable JOHN, YARITZA Admitting Unavailable JOHN, YARITZA Primary Care Unavailable STEPHEN ROBLES Consulting Unavailable YARITZA LOPEZ Consulting Unavailable DIONNE, AUDIE Admitting Unavailable DIONNE, AUDIE Consulting Unavailable DIONNE, AUDIE Attending Unavailable JOHN, YARITZA Primary Care Unavailable John POULTRY CULLER-C, Yaritza Harris Primary Care Provider Audie Truong MD Attending Provider [phone] Allergies Allergy Classification Reported Allergen(s) Allergy Type Date of Onset Reaction(s) Facility (1 source) No Known Medication Allergies; Translations: [No Known Medication Allergies] Propensity to adverse reactions (disorder) [facility] Repository Medications Current Medications Medication Drug Class(es) Dates Sig (Normalized) Sig (Original) acetaminophen 325 mg oral capsule (4 sources) Start: 05-12-2024 take 1 capsule by mouth every six hours as needed Acetaminophen 325 mg capsule Active 325 MG PO Every 6 hours as needed May 12, 2024 1:00am Complies with drug therapy alendronic acid 70 mg oral tablet (14 sources) Bisphosphonate Start: 10-19-2023 take 1 tablet by mouth every week Alendronate 70 mg tablet Active 70 MG PO every week October 19, 2023 12:00am Complies with drug therapy take 1 tablet by mouth every wee [...] hydrochloride 300 mg extended release oral tablet (14 sources) Aminoketone Start: 10-19-2023 take 1 tablet by mouth once daily Bupropion Hcl 300 mg tablet extended release 24 hr Active 300 MG PO Daily October 19, 2023 12:00am Complies with drug therapy take 1 tablet by lester th every twenty-four hours buPROPion HCl ER (XL) 300 MG 1 tablet in the morning Orally Once a day Active cetirizine hydrochloride 10 mg oral tablet (4 sources) Histamine-1 Receptor Antagonist take 1 tablet by mouth every twenty-four hours Cetirizine HCl 10 MG 1 tablet Orally Once a day Active cholecalciferol 0.05 mg oral capsule (7 sources) Vitamin D Start: 2023 take 1 capsule by mouth once daily Cholecalciferol (Vitamin D3) 50 mcg (2,000 unit) capsule Active 50 MCG PO Daily October 19, 2023 12:00am Complies with drug therapy dicyclomine hydrochloride 20 mg oral tablet (2 sources) Anticholinergic Start: 2018 take 1 tablet by mouth four times daily dicyclomine 20 mg Tab 20 mg = 1 tab(s), Oral, QID Start Date: 01/01/19 Status: Ordered Excedrin Migraine (2 sources) Start: 2018 take 2 tablets by mouth every six hours Excedrin Migraine 2 tab(s), Oral, q6hr Start Date: 01/01/19 Status: Ordered ferrous sulfate 325 mg oral tablet (3 sources) Start: 2024 Ferrous Sulfate 325 mg (65 mg iron) tablet Active 325 MG PO Every 48 hours 45 November 12, 2024 12:00am Complies with drug therapy take 1 tablet by mouth once janice y Ferrous Sulfate 325 (65 Fe) MG 1 tablet Orally Once a day Active take 1 tablet by lester th every twenty-four hours Ferrous Sulfate 325 (65 Fe) MG 1 tablet Orally Once a day Active fluticasone propionate 0.05 mg/actuat metered dose nasal spray (9 sources) Corticosteroid Start: 05-03-2024 End: 05-12-2024 Fluticasone Propionate 50 mcg/actuation spray,suspension Active INTRANASAL as needed May 12, 2024 11:53am Complies with drug therapy fluticasone 0.05 mg/inh Nasal [place] (2 sources) Start: 01-01-2019 take 2 spray(s) nasal route once daily fluticasone 0.05 mg/inh Nasal [place] 2 spray(s), Nasal, Daily, each nostril Start [...] Ordered levothyroxine sodium 0.15 mg oral tablet (16 sources) l-Thyroxine Start: 10-19-2023 take 1 tablet by mouth once daily Levothyroxine 150 mcg tablet Active 150 MCG PO Daily October 19, 2023 12:00am Complies with drug therapy Start: 01-01-2019 take 1 capsule by mo uth once daily levothyroxine 125 mcg (0.125 mg) [...] Active losartan potassium 100 mg oral tablet (16 sources) Angiotensin 2 Receptor Reinier Start: 10-19-2023 take 1 tablet by mouth once daily Losartan 100 mg tablet Active 100 MG PO Daily October 19, 2023 12:00am Complies with drug therapy Start: 01-01-2019 take 1 tablet by mouth once da tc losartan 100 mg Tab 100 mg = 1 tab(s), Oral, Daily Start Date: 01/01/19 Status: Ordered lovastatin 40 mg oral tablet (16 sources) HMG-CoA Reductase Inhibitor Start: 10-19-2023 take 1 tablet by mouth once daily Lovastatin 40 mg tablet Active 40 MG PO Daily October 19, 2023 12:00am Complies with drug therapy Start: 01-01-2019 take 1 tablet by lester th once daily lovastatin 40 mg Tab 40 mg = 1 tab(s), Oral, Daily Start Date: 01/01/19 Status: Ordered magnesium oxide 400 mg oral capsule (6 sources) Start: 11-11-2023 take 1 capsule by mouth once daily Magnesium Oxide 400 mg magnesium capsule Active 400 MG PO Daily November 11, 2023 12:00am Complies with drug therapy methylsulfonylmethane 1000 mg oral capsule (5 sources) Start: 05-12-2024 take 1 capsule by mouth twice daily Methylsulfonylmethane (Msm) 1,000 mg capsule Active 1000 MG PO Twice daily May 12, 2024 1:00am Complies with drug therapy Start: 05-12-2024 take 1 capsule by mo ut twice daily Methylsulfonylmethane (Msm) 1,000 mg capsule Active 1000 MG PO Twice daily May 12, 2024 1:00am take 1 capsule by mo ut every twenty-four hours MSM 500 MG 1 [...] directed Orally Active Multivitamin (Daily Multi-Vitamin) tablet (4 sources) Start: 05-12-2024 take 2 tablets by mouth once daily Multivitamin (Daily Multi-Vitamin) tablet Active 2 TAB PO Daily May 12, 2024 1:00am Complies with drug therapy Start: 05-12-2024 take 2 tablets by [facility] once daily Multivitamin (Daily Multi-Vitamin) tablet Active 2 TAB PO Daily May 12, 2024 1:00am Start: 05-12-2024 take 2 tablets by [facility] once daily Multivitamin (Daily Multi-Vitamin) tablet Active 2 TAB PO Daily May 12, 2024 12:00am Multivitamin Adult - (3 sources) take 1 tablet by mouth once daily Multivitamin Adult - 1 tablet Orally daily Active omeprazole 40 mg delayed release oral capsule (14 sources) Proton Pump Inhibitor Start: take 1 capsule by mouth once daily Omeprazole 40 mg capsule,delayed release(DR/EC) Active 40 MG PO Daily October 19, 2023 12:00am Complies with drug therapy take 1 capsule by [facility] every twenty-four hours Omeprazole 40 MG 1 Capsule orally daily Active ondansetron 4 mg disintegrating oral tablet (3 sources) Serotonin-3 Receptor Antagonist Start: 07-22-2024 take 1 tablet by mouth every eight hours as needed for nausea and vomiting Ondansetron 4 mg tablet,disintegrating Active 4 MG PO Every 8 hours as needed for nausea and vomiting 6 2 July 22, 2024 12:00am Complies with drug therapy Start: 01-01-2019 take 1 tablet by [facility] four times daily Zofran ODT 4 mg [...] Active raloxifene hydrochloride 60 mg oral tablet (14 sources) Estrogen Agonist/Antagon ist Start: 10-19-2023 take 1 tablet by mouth once daily Raloxifene 60 mg tablet Active 60 MG PO Daily October 19, 2023 12:00am Complies with drug therapy take 1 tablet by lester th every twenty-four hours Raloxifene HCl 60 MG 1 Tablet orally Daily Active triamcinolone acetonide 0.001 mg/mg topical ointment (9 sources) Corticosteroid Start: 05-03-2024 End: 05-12-2024 Triamcinolone Acetonide 0.1 % ointment Active APPLIC TOPICAL as needed May 12, 2024 11:54am Complies with drug therapy Vitamin B 12 500 MCG (4 sources) [...] mg / clavulanate 125 mg oral tablet (11 sources) Penicillin-class Antibacterial Start: 05-03-2024 End: 07-17-2024 [...] 1:01pm calcium carbonate 1500 mg oral tablet (7 sources) Start: 10-19-2023 End: 05-12-2024 Calcium Carbonate [...] procedure, # 2 tab(s), Refills(s) 0, Pharmacy: [facility]/pharmacy #[id number], 162, cm, 07/02/22 14:24:00 EDT, Height/Length Dosing, 74, kg, 07/02/22 14:24:00 EDT, W... Start Date: 07/02/22 Status: Ordered methylPREDNISolone 4 mg oral tablet (2 sources) Corticosteroid Start: 07-17-2024 End: 11-12-2024 take 1 tablet by mouth once Methylprednisolone (Medrol (Daniel)) 4 mg tablets,dose pack Discontinued 0 PO per package directions July 17, 2024 12:00am November 12, 2024 11:05am PO PER PKG DIR for 6 days montelukast 10 mg oral tablet (16 sources) Leukotriene Receptor Antagonist Start: 10-19-2023 End: [...] Oral, qPM Start Date: 01/01/19 Status: Ordered traZODone hydrochloride 50 mg oral tablet (5 sources) Serotonin Reuptake Inhibitor Start: 05-03-2024 End: 11-12-2024 take 1 tablet by mouth once daily at bedtime Trazodone 50 mg tablet Discontinued 50 MG PO Daily at bedtime May 03, 2024 1:00am November 12, 2024 11:06am valACYclovir 1000 mg oral tablet (2 sources) Herpesvirus Nucleoside Analog DNA Polymerase Inhibitor, Herpes Simplex Virus Nucleoside Analog DNA Polymerase Inhibitor, Herpes Zoster Virus Nucleoside Analog DNA Polymerase Inhibitor Start: 07-17-2024 End: 11-12-2024 Valacyclovir 1 gram tablet Discontinued 1000 MG PO Q8H 21 7 July 17, 2024 12:00am November 12, 2024 11:06am Problems Active Problems Problem Classification Problem Date Documented Date Episodic/Chronic Abdominal pain (4 sources) Epigastric pain; Translations: [Periumbilical pain] 01-06-2019 Episodic Anxiety disorders (10 sources) Anxiety; Translations: [Anxiety disorder, unspecified] 06-29-2024 Chronic Biliary tract disease (2 sources) Biliary calculus 01-06-2019 Episodic Chronic kidney disease (20 sources) Chronic kidney disease stage 3; Translations: [Chronic kidney disease, stage 3 (moderate)] 11-09-2023 Chronic Chronic kidney disease (14 sources) Chronic kidney disease; Translations: [Chronic kidney disease, stage 3 unspecified] Onset: 1 Resolved: 2 Coagulation and hemorrhagic disorders (3 sources) Thrombocytopenic disorder; Translations: [Thrombocytopenia, unspecified] Chronic Deficiency and other anemia (4 sources) Anemia [...] 01-06-2019 Chronic Genitourinary symptoms and ill-defined conditions (15 sources) Other microscopic hematuria; Translations: [Microscopic hematuria] [...] Chronic Other diseases of kidney and ureters (14 sources) Secondary hyperparathyroidism; Translations: [Secondary hyperparathyroidism of [...] nutritional; endocrine; and metabolic disorders (7 sources) Hypomagnesemia; Translations: [Hypomagnesemia] 11-09-2023 Chronic Other nutritional; endocrine; and metabolic disorders (4 sources) Hypomagnesemia; Translations: [Disorders of magnesium metabolism] 11-11-2023 Chronic Other screening for suspected conditions (not mental disorders or infectious disease) (2 sources) CT of abdomen abnormal 01-06-2019 Episodic Other upper respiratory infections (4 sources) Chronic sinusitis, unspecified; Translations: [CHRONIC SINUSITIS UNSPECIFIED] Onset: 2 Chronic Other upper respiratory infections (13 sources) Acute maxillary sinusitis; Translations: [Acute maxillary sinusitis, unspecified] 10-19-2023 Episodic Thyroid disorders (9 sources) Hypothyroidism; Translations: [Hypothyroidism, unspecified] 01-06-2019 Chronic Unclassified (1 source) D69.6 - Thrombocytopenia, unspecified Past or Other Problems Problem Classification Problem Date Documented Da te Episodic/Chronic Deficiency and other anemia (1 source) Anemia, unspecified; Translations: [ANEMIA UNSPECIFIED] Onset: 11-17-2021 Episodic Results Test Name Value Interpretation Reference Range Facility Erythrocyte distribution wid th Auto (RBC) [Ratio]Ordered By: Audie Truong on 11-04-2024 Erythrocyte distribution width (RBC) [Ratio] 14.4 % 11.0-15.0 [facility] Estimated glomerular filtrat ion rate (GFR) non- AmericanOrdered By: Audie Truong on 11-04-2024 GFR/1.73 sq M.predicted among non-blacks MDRD (S/P/Bld) [Vol rate/Area] 35 mL/min/{1.73_m2} Low >=60 mL/min/1.73m 2 [facility] Hematocrit Auto (Bld) [Volum e fraction]Ordered By: Audie Truong on 11-04-2024 Hematocrit (Bld) [Volume fraction] 37.6 % 36.0-48.0 [facility] Hemoglobin [Mass/volume] in BloodOrdered By: Audie Truong on 11-04-2024 Hemoglobin (Bld) [Mass/Vol] 11.9 g/dL Low 12.0-16.0 [facility] Iron binding capacity [Mass/ volume] in Serum or PlasmaOrdered By: Audie Truong on 11-04-2024 Iron binding capacity [Mass/Vol] 281.0 ug/dL 250.0-450.0 [facility] Iron saturation [Mass Fracti on] in Serum or PlasmaOrdered By: Audie Truong on 11-04-2024 Iron saturation [Mass fraction] 13.5 % [facility] - Chemistry and C hemistry - challengeOrdered By: Audie Truong on 11-04-2024 Albumin [Mass/Vol] 3.1 g/dL Low 3.4-5.0 [facility] Calcium [Mass/Vol] 8.2 mg/dL Low 8.5-10.1 [facility] Chloride [Moles/Vol] 106 mmol/L 98-107 [facility] CO2 [Moles/Vol] 24.8 mmol/L 21.0-32.0 [facility] Creatinine [Mass/Vol] 1.45 mg/dL High 0.55-1.02 [facility] GFR/1.73 sq M.predicted MDRD (S/P/Bld) [Vol rate/Area] 43 mL/min/{1.73_m2} Low >=60 mL/min/1.73m 2 [facility] Glucose [Mass/Vol] 107 mg/dL High 74-106 [facility] Iron [Mass/Vol] 38.0 ug/dL Low 50.0-170.0 [facility] Magnesium [Mass/Vol] 1.9 mg/dL 1.8-2.4 [facility] Potassium [Moles/Vol] 4.0 mmol/L 3.5-5.1 [facility] Sodium [Moles/Vol] 143 mmol/L 136-145 [facility] Urate [Mass/Vol] 5.3 mg/dL 2.6-6.0 [facility] Urea nitrogen [Mass/Vol] 20.0 mg/dL High 7.0-18.0 [facility] Urea nitrogen/Creatinine [Mass ratio] 13.8 mg/mg [facility] Bilirubin Ql (U) Negative NEGATIVE [facility] Glucose (U) [Mass/Vol] Negative NEGATIVE [facility] Ketones Ql (U) Negative NEGATIVE [facility] pH (U) 6.0 [pH] 5.0-9.0 [facility] Specific gravity (U) [Rel density] 1.025 1.005-1.025 [facility] Urobilinogen Qn (U) 0.2 {Mikel'U}/dL 0.2-1.0 [facility] - Specimen inform ationOrdered By: Audie Truong on 11-04-2024 Appearance (U) CLEAR CLEAR [facility] Color (U) YELLOW YELLOW [facility] - UrinalysisOrder ed By: Audie Truong on 11-04-2024 Leukocyte esterase Test strip Ql (U) Negative NEGATIVE [facility] Mucus Ql (Urine sed) NONE SEEN NONE SEEN [facility] Nitrite Ql (U) Negative NEGATIVE [facility] Protein (U) [Mass/Vol] 40.1 mg/dL High <=11.9 [facility] Protein Ql (U) TRACE mg/dL NEG/TRACE [facility] Leukocytes [#/volume] correc milagros for nucleated erythrocytes in Blood by Automated counOrdered By: Audie Truong on 11-04-2024 WBC corrected for nucl RBC Auto (Bld) [#/Vol] 8.7 10 3/uL 4.0-11.0 [facility] MCH Auto (RBC) [Entitic mass ]Ordered By: Audie Truong on 11-04-2024 MCH (RBC) [Entitic mass] 27.8 pg 26.7-34.0 [facility] MCHC Auto (RBC) [Mass/Vol]Or dered By: Audie Truong on 11-04-2024 MCHC (RBC) [Mass/Vol] 31.6 g/dL 29.9-35.2 [facility] MCV Auto (RBC) [Entitic vol] Ordered By: Audie Truong on 11-04-2024 MCV (RBC) [Entitic vol] 87.9 fL 81.0-99.0 [facility] No Panel InformationOrdered By: Audie Truong on 11-04-2024 25-Hydroxy Vitamin D Total 70.3 ng/mL [facility] Comment on above: <20 ng/mL Vit D defi cient20-<30 ng/mL Vit D [id number] ng/mL Vit D sufficient>100 ng/mL Potential Toxicity Miscellaneous Test COMMENT . [facility] Comment on above: Test Ordered: [id number] FerritinFerritin 101 ng/mL CB Reference Range: 15-150Performed at: CB - [facility] [address] [id number] Director: Rich Camejo PhD, Phone: [phone] Parathyroid Hormone (Intact) 124 pg/mL Abnormal 15-65 [facility] Comment on above: Performed at: CB - [facility] [id number] [place], [place] [id number] Director: Rich Camejo PhD, Phone: [phone] Phosphorus Level 2.5 mg/dL Low 2.6-4.7 [facility] Urine Bacteria NONE SEEN #/HPF NONE SEEN [facility] Urine Occult Blood TRACE-I NEGATIVE [facility] Urine Other Casts NONE SEEN #/LPF NONE SEEN [facility] Urine Other Crystals None Seen #/HPF None Seen [facility] Urine Random Creatinine 288.44 mg/dL 20.00-300. 00 [facility] Urine RBC 0-2 #/HPF 0-2 [facility] Urine Squamous Epithelial Cells FEW #/LPF Abnormal NONE/RARE [facility] Urine WBC 0-2 #/HPF Abnormal NONE SEEN [facility] Platelet mean volume Auto (B ld) [Entitic vol]Ordered By: Audie Truong on 11-04-2024 Platelet mean volume (Bld) [Entitic vol] 12.1 fL 9.5-13.5 [facility] Platelets Auto (Bld) [#/Vol] Ordered By: Audie Dionne on 11-04-2024 Platelets (Bld) [#/Vol] 118 10 3/uL Low 150-450 [facility] RBC Auto (Bld) [#/Vol]Ordere d By: Audie Dionne on 11-04-2024 RBC (Bld) [#/Vol] 4.28 10 6/uL 4.20-5.40 [facility] Serum or plasma anion gap de terminationOrdered By: Audie Dionne on 11-04-2024 Anion gap [Moles/Vol] 16.2 mmol/L [facility] Urine protein/creatinine rat ioOrdered By: Audie Dionne on 11-04-2024 Protein/Creatinine (U) [Ratio] 0.14 [facility] Erythrocyte distribution wid th Auto (RBC) [Ratio]on 05-05-2024 Erythrocyte distribution width (RBC) [Ratio] Erythrocyte distribution width [Ratio] by Automated count 11.0-15.0 [facility] Estimated glomerular filtrat ion rate (GFR) non- Americanon 05-05-2024 GFR/1.73 sq M.predicted among non-blacks MDRD (S/P/Bld) [Vol rate/Area] Estimated glomerular filtration rate (GFR) non- Low >=60 mL/min/1.73m 2 [facility] Hematocrit Auto (Bld) [Volum e fraction]on 05-05-2024 Hematocrit (Bld) [Volume fraction] Hematocrit [Volume Fraction] of Blood by Automated count 36.0-48.0 [facility] Hemoglobin [Mass/volume] in Bloodon 05-05-2024 Hemoglobin (Bld) [Mass/Vol] Hemoglobin [Mass/volume] in Blood 12.0-16.0 [facility] Iron binding capacity [Mass/ volume] in Serum or Plasmaon 05-05-2024 Iron binding capacity [Mass/Vol] Iron binding capacity [Mass/volume] in Serum or Plasma Low 250.0-450.0 [facility] Iron saturation [Mass Fracti on] in Serum or Plasmaon 05-05-2024 Iron saturation [Mass fraction] Iron saturation [Mass Fraction] in Serum or Plasma [facility] - Chemistry and C hemistry - challengeon 05-05-2024 Albumin [Mass/Vol] 3.1 g/dL Low 3.4-5.0 [facility] Calcium [Mass/Vol] 8.3 mg/dL Low 8.5-10.1 [facility] Chloride [Moles/Vol] 105 mmol/L 98-107 [facility] CO2 [Moles/Vol] 28.9 mmol/L 21.0-32.0 [facility] Creatinine [Mass/Vol] 1.47 mg/dL High 0.55-1.02 [facility] Ferritin [Mass/Vol] 93.0 ng/mL 8.0-252.0 [facility] GFR/1.73 sq M.predicted MDRD (S/P/Bld) [Vol rate/Area] 42 mL/min/{1.73_m2} Low >=60 mL/min/1.73m 2 [facility] Glucose [Mass/Vol] 104 mg/dL 74-106 [facility] Iron [Mass/Vol] 40.0 ug/dL Low 50.0-170.0 [facility] Magnesium [Mass/Vol] 2.0 mg/dL 1.8-2.4 [facility] Potassium [Moles/Vol] 4.0 mmol/L 3.5-5.1 [facility] Sodium [Moles/Vol] 143 mmol/L 136-145 [facility] Urate [Mass/Vol] 5.1 mg/dL 2.6-6.0 [facility] Urea nitrogen [Mass/Vol] 16.0 mg/dL 7.0-18.0 [facility] Urea nitrogen/Creatinine [Mass ratio] 10.9 mg/mg [facility] Bilirubin Ql (U) Negative NEGATIVE [facility] Glucose (U) [Mass/Vol] Negative NEGATIVE [facility] Ketones Ql (U) Negative NEGATIVE [facility] pH (U) 5.5 [pH] 5.0-9.0 [facility] Specific gravity (U) [Rel density] >=1.030 Abnormal 1.005-1.025 [facility] Urobilinogen Qn (U) 0.2 {Mikel'U}/dL 0.2-1.0 [facility] - Specimen inform ationon 05-05-2024 Appearance (U) CLEAR CLEAR [facility] Color (U) YELLOW YELLOW [facility] - Urinalysison Leukocyte esterase Test strip Ql (U) SMALL Abnormal NEGATIVE [facility] Mucus Ql (Urine sed) TRACE Abnormal NONE SEEN [facility] Nitrite Ql (U) Negative NEGATIVE [facility] Protein (U) [Mass/Vol] 38.9 mg/dL High <=11.9 [facility] Protein Ql (U) TRACE mg/dL NEG/TRACE [facility] Leukocytes [#/volume] correc milagros for nucleated erythrocytes in Blood by Automated counon 05-05-2024 WBC corrected for nucl RBC Auto (Bld) [#/Vol] Leukocytes [#/volume] corrected for nucleated erythrocytes in Blood by Automated coun 4.0-11.0 [facility] MCH Auto (RBC) [Entitic mass ]on 05-05-2024 MCH (RBC) [Entitic mass] MCH [Entitic ma ss] by Automated count 26.7-34.0 [facility] MCHC Auto (RBC) [Mass/Vol]on 05-05-2024 MCHC (RBC) [Mass/Vol] MCHC [Mass/volume] by Automated count 29.9-35.2 [facility] MCV Auto (RBC) [Entitic vol] on 05-05-2024 MCV (RBC) [Entitic vol] MCV [Entitic vol ume] by Automated count 81.0-99.0 [facility] No Panel Informationon 05-05 25-Hydroxy Vitamin D Total 76.3 ng/mL [facility] Comment on above: <20 ng/mL Vit D defi cient20-<30 ng/mL Vit D [id number] ng/mL Vit D sufficient>100 ng/mL Potential Toxicity Parathyroid Hormone (Intact) 90 pg/mL Abnormal 15-65 [facility] Comment on above: Performed at: - [facility] [address] [id number] Director: Rich Camejo PhD, Phone: [phone] Phosphorus Level 3.1 mg/dL 2.6-4.7 [facility] Urine Bacteria SMALL #/HPF Abnormal NONE SEEN [facility] Urine Occult Blood SMALL Abnormal NEGATIVE [facility] Urine Random Creatinine 232.52 mg/dL 20.00-300. 00 [facility] Urine RBC 2-5 #/HPF Abnormal 0-2 [facility] Urine Squamous Epithelial Cells MODERATE #/LPF Abnormal NONE/RARE [facility] Urine WBC 10-20 #/HPF Abnormal NONE SEEN [facility] Platelet mean volume Auto (B ld) [Entitic vol]on 05-05-2024 Platelet mean volume (Bld) [Entitic vol] Platelet mean volume [Entitic volume] in Blood by Automated count 9.5-13.5 [facility] Platelets Auto (Bld) [#/Vol] on 05-05-2024 Platelets (Bld) [#/Vol] Platelets [#/vol ume] in Blood by Automated count Low 150-450 [facility] RBC Auto (Bld) [#/Vol]on RBC (Bld) [#/Vol] Erythrocytes [#/volume] in Blood by Automated count 4.20-5.40 [facility] Serum or plasma anion gap de terminationon 05-05-2024 Anion gap [Moles/Vol] Serum or plasma anion gap determination [facility] Urine protein/creatinine rat ioon 05-05-2024 Protein/Creatinine (U) [Ratio] Urine protein/creatinine ratio [facility] Erythrocyte distribution wid th Auto (RBC) [Ratio]on 11-07-2023 Erythrocyte distribution width (RBC) [Ratio] 13.8 % 11.0-15.0 [facility] Estimated glomerular filtrat ion rate (GFR) non- Americanon 11-07-2023 GFR/1.73 sq M.predicted among non-blacks MDRD (S/P/Bld) [Vol rate/Area] 35 mL/min/{1.73_m2} Low >=60 [facility] Hematocrit Auto (Bld) [Volum e fraction]on 11-07-2023 Hematocrit (Bld) [Volume fraction] 38.7 % 36.0-48.0 [facility] Hemoglobin [Mass/volume] in Bloodon 11-07-2023 Hemoglobin (Bld) [Mass/Vol] 11.9 g/dL Low 12.0-16.0 [facility] - Chemistry and C hemistry - challengeon 11-07-2023 Albumin [Mass/Vol] 3.1 g/dL Low 3.4-5.0 [facility] Calcium [Mass/Vol] 8.7 mg/dL 8.5-10.1 [facility] Chloride [Moles/Vol] 103 mmol/L 98-107 [facility] CO2 [Moles/Vol] 28.9 mmol/L 21.0-32.0 [facility] Creatinine [Mass/Vol] 1.46 mg/dL High 0.55-1.02 [facility] GFR/1.73 sq M.predicted MDRD (S/P/Bld) [Vol rate/Area] 43 mL/min/{1.73_m2} Low >=60 [facility] Glucose [Mass/Vol] 100 mg/dL 74-106 [facility] Magnesium [Mass/Vol] 1.6 mg/dL Low 1.8-2.4 [facility] Potassium [Moles/Vol] 3.8 mmol/L 3.5-5.1 [facility] Sodium [Moles/Vol] 141 mmol/L 136-145 [facility] Urate [Mass/Vol] 5.3 mg/dL 2.6-6.0 [facility] Urea nitrogen [Mass/Vol] 21.0 mg/dL High 7.0-18.0 [facility] Urea nitrogen/Creatinine [Mass ratio] 14.4 mg/mg [facility] Bilirubin Ql (U) Negative NEGATIVE [facility] Glucose (U) [Mass/Vol] Negative NEGATIVE [facility] Ketones Ql (U) Negative NEGATIVE [facility] pH (U) 6.0 [pH] 5.0-9.0 [facility] Specific gravity (U) [Rel density] >=1.030 Abnormal 1.005-1.025 [facility] Urobilinogen Qn (U) 0.2 {Mikel'U}/dL 0.2-1.0 [facility] - Specimen inform ationon 11-07-2023 Appearance (U) CLEAR CLEAR [facility] Color (U) LT. YELLOW YELLOW [facility] - Urinalysison Hyaline casts LM Ql (Urine sed) RARE [facility] Leukocyte esterase Test strip Ql (U) MODERATE Abnormal NEGATIVE [facility] Mucus Ql (Urine sed) SMALL Abnormal NONE SEEN [facility] Nitrite Ql (U) Negative NEGATIVE [facility] Protein Ql (U) TRACE mg/dL NEG/TRACE [facility] Leukocytes [#/volume] correc milagros for nucleated erythrocytes in Blood by Automated counon 11-07-2023 WBC corrected for nucl RBC Auto (Bld) [#/Vol] 7.5 10 3/uL 4.0-11.0 [facility] MCH Auto (RBC) [Entitic mass ]on 11-07-2023 MCH (RBC) [Entitic mass] 27.2 pg 26.7-34.0 [facility] MCHC Auto (RBC) [Mass/Vol]on 11-07-2023 MCHC (RBC) [Mass/Vol] 30.7 g/dL 29.9-35.2 [facility] MCV Auto (RBC) [Entitic vol] on 11-07-2023 MCV (RBC) [Entitic vol] 88.4 fL 81.0-99.[address] [facility] No Panel Informationon 11-06 25-Hydroxy Vitamin D Total 83.6 ng/mL [facility] Comment on above: <20 ng/mL Vit D defi cient20-<30 ng/mL Vit D expdqhtshvzn16-364 ng/mL Vit D sufficient>100 ng/mL Potential Toxicity Parathyroid Hormone (Intact) 70 pg/mL Abnormal 15-65 [facility] Comment on above: Performed at: [facility] [facility] [employer] [address] [id number] Director: Rich Camejo PhD, Phone: [phone] Phosphorus Level 3.2 mg/dL 2.6-4.7 [facility] Urine Bacteria SMALL #/HPF Abnormal NONE SEEN [facility] Urine Occult Blood SMALL Abnormal NEGATIVE [facility] Urine Other Casts SEEN #/LPF Abnormal NONE SEEN [facility] Urine Other Crystals None Seen #/HPF None Seen [facility] Urine RBC 0-2 #/HPF 0-2 [facility] Urine Squamous Epithelial Cells MANY #/LPF Abnormal NONE/RARE [facility] Urine Transitional Epithelial Cells MANY #/LPF Abnormal NONE SEEN [facility] Urine WBC 10-20 #/HPF Abnormal NONE SEEN [facility] Platelet mean volume Auto (B ld) [Entitic vol]on 11-07-2023 Platelet mean volume (Bld) [Entitic vol] 12.6 fL 9.5-13.5 [facility] Platelets Auto (Bld) [#/Vol] on 11-07-2023 Platelets (Bld) [#/Vol] 163 10 3/uL 150-450 [facility] RBC Auto (Bld) [#/Vol]on RBC (Bld) [#/Vol] 4.38 10 6/uL 4.20-5.40 [facility] Serum or plasma anion gap de terminationon 11-07-2023 Anion gap [Moles/Vol] 12.9 mmol/L [facility] Coding Summary.on 07-19-2022 Coding Summary. CD:[id number] Ww+PGhlYWQ+YU7ETPKvA 41veIJveP1mN1XIMTgRQ ywgQVBQTElOSyIgbmFtZ W2bpZBaFVHk IC8+CL5iWGKiKsidvFQq y3U6qGZ4G38zen2nJNqg xFS8WDLtKnHgocmhw4ha uAd4BDhzFtodGiQf MNYgpR10DJF3wT48Di68 nWLhjGRba0mxqDe5MvJf YEVqRJC3dVcjQRugl5Hu AJQkS84wxJIfq4G1 IGNvbGxhcHNlOyBlbXB0 sT7lUJhrxkjor9xuxmhc Hkl9xi29aSMqk5J8rOP8 K4FwunX1NEWjaSYg ArlegIBMfQ4synsfe7tx bdfzSiTbPDAmQBp5AQk1 XJQkhOauUoFpJK35HIB2 QBFzuhSlJ3GvLPQs wSjkWvC0w6B1Mj2HT2TL VkevY7RRQDVJUNzesYW+ TL58wx44I6VbCigoNur8 GIZyBBT9cRZ8pZ4w GNTcFDrad7W0rEL5J0Vm hkZets5bu9vqSSYsAKof I58dwGQph0P7TGStpQE7 ZMMzpHmdVnWskI33 Oyc+GHCmcOvhj7SeVofy w0iiq3pcvCv9AnyfBHYh ayUrwXspDJV7k3EuJj4g QKLnsVR2vZA5eS8o AiYcZxK8UZgbB009XyGd gSZfBbuhT31iW7YwmEP+ AMAfImt1JGEppHpdPI3q V5ZgBCStfchybCZv iQjgDI0wFNHmrikmTBWd zW8pTTSnY1k3OzAdZnV3 DAeeX0XdKOCdsvbaIc81 eG5aToQmXyV9OOte P7LyoaP6ACUrkFVtYJfu JGD2U73ed0Y3OXCtEGKo DDX6jQY7pI0fvNrxqfhu bGVmdDsgdmVydGlj FQfoRLpxC683YBEnxYcc PkNvZGluZyBEYXRlOiAg MDMvMzAvMjAyMzwvdGQ+ NVJvOUQ1fMpqXKRh eITfKXvfPf8vtEzacVer RF9oLPQcyowvGUZgaK5z VEDlwJBfcCkrBK3tRKMm efnos887ZpTqSKK9 DSYbiVXpX9WjdZ7jVgGq QRKuRWPbG7VnlIFaSIae S384QVlsLoB1JYQbjxBn G9DyQYNwfYzmDyX2 n6A6Lo3Aw9LjdnenA7Ej wJGnUsDoWcelCWu0Y2Wj PjwvdHI+HM09NBVuCY72 BBv2DVG5bTmvRNim SVQmA4LstH9qNxBoDDBf ZGRkOyc+PHRhYmxlIHdp ZHRoPScxMDAlJyBzdHls HF3yJn7eLPVuZPHd tHqyvZLvByVbt6dhWIUx MSvkNP3zwZeuQ6UmtVK7 HDAou9o9As58E22wI5Nx dXA+SCHihPC7iUP5 pJ6jAqWwQpQ6VMzuF063 ZkTgrJIaPkyra3mrv5nr rKo7WaA4RHCodmEleZnx WQD7m8ZzNs68L08q IHdpZHRoPSIxNSUiIHZh hVozos3xhS6zLx4+PGNv iMJ6bQE7mK9gBzEmPzJ2 WEpzA891AfGpzYWd Xughj2rcx5ruoOa4JwUn WPKuaqPtvAzuJYP3w0Md Vf32S0SqqFnwh7NbXmw1 ob24oHIfq7E1qYA2 O1QjFWYjefosgJFntDkm CR9nITUlybggWMQfeB5b DQXfB5j6CuXqVzV4YOww D2YxcmT9FUBswBJt OTSvrTBSoB4zdenhi8aw vetrNwDgXXTtXXj2JBf9 AHFxaYhaXoOwAJK0LmU5 OJG6dHHbhQ6zrXon pftofX2dZyd+APP1yTCt xCYQOH2cOqwdyRU+PHRk WJU5cJpnEOcjMNGnnC1k ZCExA2w3ArHoIkK0 JUmmM1XutfW1HZZfuYHa FPGsvPCIrJ9wkyodz3sf kxrvEpClYUAmZDs3PKv1 LWFsaWduOiBsZWZ0 AeG8RYC0rDAqoL2smQkg begrzU1hHgz+QmlydGgg RKT5RHt5J9PlSrn9HGPi aBxxVS7wmXUeWXag Rm2flNzomSckKU5nLDGa apqdw943ZvFlg5szUUJr vOPnBHujMJX1N91on9J3 VVBtFJRoPVN3nXY6 cP2xqWmtnsffgFFfhCnd eiDwgOsqFPuuGMqkU553 AYMbzFouBkNtHYq4P6Wh Eaw3PFJrhBigGE7m cZZgEGfsUp3dnMkgdDra ZS9lUDBgxauil257FtBs z8tqQFTyqMZrRCibHDD9 J04ao5H1ZTBsIQSw BBY5qZK1tH2woXeujcuo bGVmdDsgdmVydGljYWwt SVnpY565NGXybXurWsMo sCy0A6EwHdk6NXIv vVztMB9mmYMsGGcnAu7b zVznoAvzTY5tDXKzlvdu m776EmTcj9tzEBUueAYg OKsfSUO1Y29ku0L2 QFSxSQVfTGU5zZC1rI3p bGlnbjogbGVmdDsgdmVy jWwaQIjpVEwjH069WNKh cDsnPlBhdGllbnQg PLisNLc2D9PjDvfxfUR+ LG75HAJcAB66eWFxgCKn n1vsnPc4GbUmQPRlJKQ8 hSwlZJscg0MhAUOp I94cqOLqk8G7XVVbbYgs hZFkAeCviYI6wO0zLUbc ijzqs4xsujkjYfmok5cy ty64sA24D63oPFnv ZHRoPSIzMCUiIHZhbGln ex2uhS7hNz2+PGNvbCB3 rEB3yE8kDNRkEpK5BRfk Q461IoDqfGMpNopu w7slr9aceSh3PpY7VHVw kzJaxRsuSHE2k2NqRf66 X13kSPigUNUbZRPzXIEg YBMsdXgdrk2ltJ8m Ii8+OYLfrYN3eHI7mP6u EpVfUxM2RJdbV581YfEe aEOaKsoyW24lP3ObzGB+ TTTfFip2HFYppLuy CL9rrTMuOYsrId3lOAN7 VfQiNrBkDNmbV2JrVPEk dazorxmweSL3CGLiYBLi dG04Tx7gfPwaORTv vTOGdE3eqsgpq2qxvzci JfQgNTIqUOq6OHl2NEUm tCpbFcHnIPK9HwV4JTO8 mEKemA2gqJjoejxw yU4cX4EgTWXgsqauGu34 qP5cMkBuTgD5XCtuLtl+ L8UPNyJMLUKEOGVVG3NK TkUgQTwvdGQ+PHRk REO9pNnsASlbSFWuoA2o UQRaA3e4UrHbSsY6ZLfl L7JhRMHqsgfwWc28uZ9w QjSnEhV8OIzwA5Ve zxY0LXEwcKZfLPazAYD4 C49gf1T5FIWjRKUiRZO2 yUD3cB6hjLaihyshrKOy dDsgdmVydGljYWwt FEoiN752GFYfqEqnShDb WwBhLyW1DVE1Q8JjUrt0 WLSmrUnpQL1zvGIyQVbc Ii9lrElgnDnyKA8u ZNZuqpeeDSJbjV2sBDGv aIRzmJbpHQ9dYHYdfziu u370XjIfWTM9LHVigUOx L6KahU4uYuRyLQEn YCWkM5AkyHIoGKhxF798 NBvcWuI9XSMcqoAeA0Eb HXSkqDqsZrP9h2M5Bk28 MCBZZWFyczwvdGQ+ YAWzAWU7wExgLUtkUTMh bX6oKNJcN7o7RdEiTkO5 RXllG3XvQKLvbsgfSe98 cD1rEoFwJzZ8CAbb X9XdpnL4IDRbhGGmUZvj PWX4I47ja3I1HQGjCVSl FHF1oZX5oJ5ckCcjzokn bGVmdDsgdmVydGlj VFxrFTdwC979EZHhjZfc PkZlbWFsZTwvdGQ+PHRk ZQF5vDrxPAvaCDXtrC0f IXQyQ3z6NoSnFvW6 QZxbD8ApADXnsxrsQv64 yL1nSeYrYlS7BMggK3Ft wfE5TZHuuILvKJsoHIP7 H33pv0K1VEBpXFPt PZK0qDN0yE2zjSsaqjyi bGVmdDsgdmVydGljYWwt FBzqP502LQMwzFbrGf11 gLEshXscphB7G6Ri PjwvdHI+ET59IUWeAG87 fVFsaCVaj6qbmWz7DtAw XPThXZZ8uCnoWMrmy2St FQJhU58tcZAyo4W5 IGNvbGxhcHNlOyBlbXB0 eK5pCIaxmtqlc7yivsoq Nevfe5rflt99cD06P27s IHdpZHRoPSIzMCUi MUIkeHjplm2oqR8bPg9+ EAKqvLT6uTY7dT4wVePl FtH2DMsrH224ZfFdwUGn Loaem9nhn1tmaJm1 IjIwJSIgdmFsaWduPSJ0 a7NbHk96P79iNWujGKVk WXMsANRqWJPqvDsixe0t yZ8vWn0+LI9sh1lr cy70vY21nVT+PHRkIHN0 lZpiIXliAFGlrS7qAZob TgT5BOGcLfKmlC69xBKq NUbtXa1ecHtasKcc GV0mIVHblbxby018KeNn h6enARJhsCAoDNbaYPX1 A27px9F9RIReSNMcDRB6 hBX4gA6xfCgojbxq bGVmdDsgdmVydGljYWwt XXlnP784GWGjaLnuYyTc bQYaL8msjmQNOS5dStoa dGQ+KTXtDWB0oVtb JPlqZNNbiU0rFPAhC2o0 OvIgAgN4IFzwL7UrncO8 AZEfzEQiPCTcqZFEqF0s dksbr0vsjfruZnWo MNTxNEj2YBk1YMFlmCsa TkRsYIP0OwW5ICU9xUGl fU9wdMedzhbgrR4mPtx+ RklOOjwvdGQ+PHRk TPU3lSlpDQdcMSNhxN2r SJUgO9g0DmHkGuI8YSkr S4CxqpJ2WCNrnCRvFYOv kMUDvI4newend5ds nleoAwExASOgRIb0JVg8 PTAenGftVkWmHCF3TeT6 DGF7oJZnsR0nkLczwpoc kF9tOum+TVJOOjwv dGQ+IXPiCGO3pKllYWev GRSarJ9nLXWiS1e9RiVq PxC1OIpbF3WipmM7ASVa sOBbBBPjxRWDbH9h oeicv9fctvixMnMeINXm XPz4LFy7YKBovPgdLwZf THC6EjZ6VED5cEWvxJ9m rXxareshvB3yKgs+ MMQ5RAD4UN71NE62Y2Hw PjwvdGFibGU+PHRhYmxl IHdpZHRoPScxMDAlJyBz pTqgTT9lJo9uINGa LWNvbGxh (more content not included)... [facility] Consent for Procedure/Surger yon 07-17-2022 Consent for Procedure/Surgery [id number] 0#1.00CD:127 [facility] Consent for Treatmenton 03-2 Consent for Treatment [id number] #1.00CD:127 [facility] IntraOperative Documentson 0 07-17-2022 IntraOperative Documents [id number] 2#1.00CD:127 [facility] Main OR Intraoperative Recor don 07-17-2022 Main OR Intraoperative Record IntraOp Document Type FTURO Summary Primary Physician: Iván TOMLIN MD Finalized Date/Time: 07/17/22 09:10:19 Pt. Name: PEG HADLEY/Sex: 1950 Female Med Rec #: [id number] Physician: Iván TOMLIN MD Financial #: [id number] Pt. Type: O Room/Bed: / Admit/Disch: 07/17/22 [...] Palma Ko Role Performed Surgeon - Primary Yarder Engineer - Primary Scrub - Primary Time In [...] Description cysto Primary Procedure Yes Primary Surgeon KELLY BLACKMON, Iván Brock 07/17/22 09:05:00 Stop 07/17/22 09:10:00 Anesthesia Type Local Surgical Service Urology Wound Class 2 - Clean-Contaminated Last Modified By: Kusum BELL, DEDRA, Stefani 07/17/22 09:08:19 General Case Data FTURO [...] RN, Ruthann 07/17/22 09:10 Normal [facility] Main OR Preoperative Recordo n 07-17-2022 Main OR Preoperative Record Holding Area Document Type FTURO Summary Primary Physician: Iván TOMLIN MD Finalized Date/Time: 07/17/22 09:04:54 Pt. Name: PEG HADLEY/Sex: 1950 Female Med Rec #: [id number] Physician: Iván TOMLIN MD Financial #: [id number] Pt. Type: O Room/Bed: / Admit/Disch: 07/17/22 [...] No Pain Comment: na Skin Integrity Intact, Badin, Warm, & Dry Vitals - EU Blood Pressure 135/82 Pulse 65 bpm Respirations 16 br/min SPO2 96 % RN Reviewed Yes Last Modified By: DEDRA Noe RN, Ruthann 07/17/22 09:04:49 General Comments: temp:36.4 Finalized By: DEDRA Noe RN, Ruthann Document Signatures Signed By: Maeve Florian LPN 07/17/22 08:41 DEDRA Noe RN, Ruthann 07/17/22 09:04 Normal [facility] Operative Reporton Operative Report Patient: PEG [...] a as needed basis.. Normal [facility] Comment on above: Result Comment: Elec tronically Signed By: KELLY BLACKMON, Iván Oates\Date and Time Signed: 07/17/22 09:13 EDT RAD - Ultrasound Reporton RAD - Ultrasound Report [id number] #1.00CD:127 Normal [facility] Urine Cytology ([facility])on 0 07-09-2022 Urine Cytology Diagnosis Info Invalid Interpretation Code [facility] Comment on above: Result Comment: A:Ur ine,Urine:Voided Interpretation - MicroScopic Description - Adequacy - Gross Description Site ID:A color Light Yellow fixative Alcohol Specimen designated Urine received in alcohol preservative and labeled with the patient?s name, consists of 40ml clear light yellow fluid. Electronically signed by : on: 07/09/2022 15:10:50 Performed By: #### 1 [id number] ####[facility] [address] [place] [address] US KIDNEYSon 07-07-2022 US KIDNEYS EXAM: US [...] by: DANIELLE CAM Date: 2022-07-07 10:33 Normal [facility] Formson 07-03-2022 Forms [id number] #1.00CD:127 Normal [facility] Physician Referralon 023 Physician Referral [id number] #1.00CD:127 Normal [facility] Pre-Certification Formon Pre-Certification Form [id number] 8#1.00CD:127 Normal [facility] Ambulatory Visit Summaryon 0 07-02-2022 Ambulatory Visit Summary PEG HADLEY :1950 Visit Date:07/02/2022 Ambulatory Visit Instructions Your Diagnosis Microscopic hematuria Tests Performed Urnls Dip Stick Auto w/o Microscopy POC 97573 US Renal -- Results Pending -- Please [...] Tab) fluticasone nasal (fluticasone 0.05 mg/inh Nasal [place]) hyoscyamine (hyoscyamine 0.125 mg oral Tab) levothyroxine [...] Where: [facility] [address], [place] [address]- Medications What How Much When Instructions Unchanged [...] fluticasone nasal (fluticasone 0.05 mg/ inh Nasal [place]) 2 Sprays Nasal Inhalation Every day each [...] Urnls Dip Stick Auto w/o Microscopy POC 14286 (07/02/2022) Bilirubin Urine Dipstick - Negative Blood Urine Dipstick - Trace-lysed Glucose Urine Dipstick - Negative Ketones Urine Dipstick - Negative Leukocytes Urine Dipstick - Negative Nitrite Urine Dipstick - Negative Protein Urine Dipstick - Negative Specific [place] Urine Dipstick - >=1.030 Urine Appearance Urine [...] (more content not included)... Normal [facility] Patient Educationon 07-03-19 Patient Education Urology [...] these instructions at home: Medicines ? Take cqbt-yys-lxshjxi and prescription medicines only as told by [...] the blood stops without treatment. ? Take tymj-add-yoxnula and prescription medicines only as told by your health care provider. ? Drink enough fluid to keep your urine clear or pale yellow. This information is not intended to replace advice given to you by your health care provider. Make sure you discuss any questions you have with your health care provider. Document Released: 04/08/2006 Document Revised: 09/02/2019 Document Reviewed: 05/11/2017 [employer] Patient Education ? 2019 [employer] Normal [facility] Urine Cytology ([facility])on 0 07-02-2022 Method of Extraction Voided Normal [facility] Comment on above: Performed By: #### 1 [id number] ####[facility] [address] [facility] [place] [address] Number of Jars 1 Invalid Interpretation Code [facility] Comment on above: Performed By: #### 1 [id number] ####[facility] [address] [place] [address] Specimen Urine Normal [facility] Comment on above: Performed By: #### 1 [id number] ####[facility] [address] [place] [address] Type of Service Technical Only Normal [facility] Comment on above: Performed By: #### 1 [id number] ####[facility] [address] [place] [place] [address] PTH INTACTon 05-22-2022 PTH, Intact 75 pg/mL Critically high 15-65 [facility] Comment on above: Performed By: #### P THINT #### [facility] [address] [address] [address] Andrea Mccarthy FERRITINon 05-21-2022 Ferritin [Mass/Vol] 124.0 ng/mL Normal 8.0-252.0 [facility] Comment on above: Performed By: #### U KIM, MG, PHOS #### [facility] [address] [place] [address] Dr. Andrea Mccarthy HEMOGRAM AND PLATELon 2022 Hematocrit (Bld) [Volume fraction] 40.1 % Normal 36.0-48.0 [facility] Comment on above: Performed By: #### U KIM, MG, PHOS #### [facility] [address] [place] [address] Dr. Andrea Mccarthy Hemoglobin (Bld) [Mass/Vol] 13.2 g/dL Normal 12.0-16.0 [facility] Comment on above: Performed By: #### U KIM, MG, PHOS #### [facility] [address] [place] [address] Dr. Andrea Mccarthy MCH (RBC) [Entitic mass] 28.0 pg Normal 26.7-34.0 [facility] Comment on above: Performed By: #### U KIM, MG, PHOS #### [facility] [address] [place] [address] Dr. Andrea Mccarthy MCHC (RBC) [Mass/Vol] 32.9 g/dL Normal 29.9-35.2 [facility] Comment on above: Performed By: #### U KIM, MG, PHOS #### [facility] [address] [place] [address] Dr. Andrea Mccarthy MCV (RBC) [Entitic vol] 85.1 fL Normal 81.0-99.[address] [facility] Comment on above: Performed By: #### U KIM, MG, PHOS #### [facility] [address] [place] [address] Dr. Andrea Mccarthy PLT 255 103/ul Normal 150-450 [facility] Comment on above: Performed By: #### U KIM, MG, PHOS #### [facility] [address] [place] [address] Dr. Andrea Mccarthy RBC 4.71 106/ul Normal 4.20-5.40 [facility] Comment on above: Performed By: #### U KIM, MG, PHOS #### [facility] [address] [place] [address] Dr. Andrea Mccarthy WBC 5.9 103/ul Normal 4.0-11.0 [facility] Comment on above: Performed By: #### U KIM, MG, PHOS #### [facility] [address] [place] [address] Dr. Andrea Mccarthy IRON AND TIBCon 05-21-2022 % SATURATION 18.5 % Normal [facility] Comment on above: Performed By: #### U KIM, MG, PHOS #### [facility] [address] [place] [address] Dr. Andrea Mccarthy Iron [Mass/Vol] 51.0 ug/dL Normal 50.0-170.0 [facility] Comment on above: Performed By: #### U KIM, MG, PHOS #### [facility] [address] [place] [address] Dr. Andrea Mccarthy TIBC DIRECT 276.0 ug/dL Normal 250.0-450.0 [facility] Comment on above: Performed By: #### U KIM, MG, PHOS #### [facility] [address] [place] [address] Dr. Andrea Mccarthy MAGNESIUMon 05-21-2022 Magnesium [Mass/Vol] 1.8 mg/dL Normal 1.8-2.4 [facility] Comment on above: Performed By: #### U KIM, MG, PHOS #### [facility] [address] [place] [address] Dr. Andrea Mccarthy RENAL FUNCTION PANELon 05-21 Albumin [Mass/Vol] 3.5 g/dL Normal 3.4-5.0 [facility] Comment on above: Performed By: #### U KIM, MG, PHOS #### [facility] [address] [place] [address] Dr. Andrea Mccarthy Calcium [Mass/Vol] 8.5 mg/dL Normal 8.5-10.1 [facility] Comment on above: Performed By: #### U KIM, MG, PHOS #### [facility] [address] [place] [address] Dr. Andrea Mccarthy Chloride [Moles/Vol] 104 mmol/L Normal 98-107 [facility] Comment on above: Performed By: #### U KIM, MG, PHOS #### [facility] [address] [address] [address] Andrea Mccarthy CO2 [Moles/Vol] 29.6 mmol/L Normal 21.0-32.0 [facility] Comment on above: Performed By: #### U KIM, MG, PHOS #### [facility] [address] [address] [address] Andrea Mccarthy Creatinine [Mass/Vol] 1.23 mg/dL Critically high 0.55-1.02 [facility] Comment on above: Performed By: #### U KIM, MG, PHOS #### [facility] [address] [place] [address] Dr. Andrea Mccarthy EGFR-AF BRAZILIAN 52 mL/min/1.73m2 Critically low >=60 [facility] Comment on above: Performed By: #### U KIM, MG, PHOS #### [facility] [address] [address] [address] Andrea Mccartyh EGFR-NON AF BRAZILIAN 43 mL/min/1.73m2 Critically low >=60 [facility] Comment on above: Performed By: #### U KIM, MG, PHOS #### [facility] [address] [address] [address] Andrea Mccarthy Glucose [Mass/Vol] 92 mg/dL Normal 74-106 [facility] Comment on above: Performed By: #### U KIM, MG, PHOS #### [facility] [address] [address] [address] Andrea Mccarthy Phosphate [Mass/Vol] 3.3 mg/dL Normal 2.6-4.7 [facility] Comment on above: Performed By: #### U KIM, MG, PHOS #### [facility] [address] [address] [address] Andrea Mccarthy Potassium [Moles/Vol] 3.9 mmol/L Normal 3.5-5.1 [facility] Comment on above: Performed By: #### U KIM, MG, PHOS #### [facility] [address] [address] [address] Andrea Mccarthy Sodium [Moles/Vol] 141 mmol/L Normal 136-145 [facility] Comment on above: Performed By: #### U KIM, MG, PHOS #### [facility] [address] [address] [address] Andrea Mccarthy Urea nitrogen [Mass/Vol] 25.0 mg/dL Critically high 7.0-18 .0 [facility] Comment on above: Performed By: #### U KIM, MG, PHOS #### [facility] [address] [address] [address] Andrea Mccarthy UA RANDOM W/MICROSCOPICon BACTERIA NONE SEEN Normal NONE SEEN [facility] Comment on above: Performed By: #### U AMIC #### [facility] [address] [place] [address] Dr. Andrea Mccarthy Bilirubin Ql (U) Negative Normal NEGATIVE [facility] Comment on above: Performed By: #### U AMIC #### [facility] [address] [place] [address] Dr. Andrea Mccarthy CAST NONE SEEN Normal NONE SEEN [facility] Comment on above: Performed By: #### U AMIC #### [facility] [address] [place] [address] Dr. Andrea Mccarthy Clarity (U) CLEAR Normal CLEAR [facility] Comment on above: Performed By: #### U AMIC #### [facility] [address] [place] [address] Dr. Andrea Mccarthy Color (U) YELLOW Normal YELLOW [facility] Comment on above: Performed By: #### U AMIC #### [facility] [address] [place] [address] Dr. Andrea Mccarthy Crystals LM Nom (Urine sed) NONE SEEN Normal NONE SEEN [facility] Comment on above: Performed By: #### U AMIC #### [facility] [address] [place] [address] Dr. Andrea Mccarthy Epithelial cells LM Ql (Urine sed) FEW Abnormal NONE SEEN /RARE [facility] Comment on above: Performed By: #### U AMIC #### [facility] [address] [address] [address] Andrea Mccarthy Glucose Ql (U) Negative Normal NEGATIVE [facility] Comment on above: Performed By: #### U AMIC #### [facility] [address] [address] [address] Andrea Mccarthy Hemoglobin Ql (U) TRACE-INTACT Abnormal NEGATIVE [facility] Comment on above: Performed By: #### U AMIC #### [facility] [address] [address] [address] Andrea Mccarthy Ketones Ql (U) Negative Normal NEGATIVE [facility] Comment on above: Performed By: #### U AMIC #### [facility] [address] [place] [address] Dr. Andrea Mccarthy LEUKOCYTES Negative Normal NEGATIVE [facility] Comment on above: Performed By: #### U AMIC #### [facility] [address] [place] [address] Dr. Andrea Mccarthy MUCOUS TRACE Abnormal NONE SEEN [facility] Comment on above: Performed By: #### U AMIC #### [facility] [address] [address] [address] Andrea Mccarthy Nitrite Ql (U) Negative Normal NEGATIVE [facility] Comment on above: Performed By: #### U AMIC #### [facility] [address] [place] [address] Dr. Andrea Mccarthy pH (U) 5.0 [pH] Normal 5-9 [facility] Comment on above: Performed By: #### U AMIC #### [facility] [address] [address] [address] Andrea Mccarthy RBC 0-2 Normal 0-2 [facility] Comment on above: Performed By: #### U AMIC #### [facility] [address] [place] [address] Dr. Andrea Mccarthy SPEC GRAVITY 1.025 Normal 1.005-<=1.02 5 [facility] Comment on above: Performed By: #### U AMIC #### [facility] [address] [address] [address] Andrea Mccarthy UA PROTEIN Negative Normal NEGATIVE/ TRACE [facility] Comment on above: Performed By: #### U AMIC #### [facility] [address] [address] [address] Andrea Mccarthy Urobilinogen Qn (U) 0.2 {Mikel'U}/dL Normal 0.2 - 1. 0 [facility] Comment on above: Performed By: #### U AMIC #### [facility] [address] [address] [address] Andrea Mccarthy WBC NONE SEEN Normal NONE SEEN [facility] Comment on above: Performed By: #### U AMIC #### [facility] [address] [place] [address] Dr. Andrea Mccarthy URINE T PROTEIN CREAT RATIOo n 05-21-2022 Protein (U) [Mass/Vol] 21.5 mg/dL Critically high <=12.0 [facility] Comment on above: Performed By: #### U KIM, MG, PHOS #### [facility] [address] [address] [address] Andrea Mccarthy UR PROT CREAT RAT 0.15 Normal [facility] Comment on above: Performed By: #### U KIM, MG, PHOS #### [facility] [address] [place] [address] Dr. Andrea Mccarthy URINE CREAT 144.81 mg/dL Normal 20.00-300.00 [facility] Comment on above: Performed By: #### U KIM, MG, PHOS #### [facility] [address] [place] [address] Dr. Andrea Mccarthy VIT B12 AND FOLATEon 023 Cobalamin (Vitamin B12) [Mass/Vol] 1425.0 pg/mL Critically high 193.0-986.0 [facility] Comment on above: Performed By: #### U KIM, MG, PHOS #### [facility] [address] [place] [address] Dr. Andrea Mccarthy FOLATE 22.60 ng/mL Normal 8.60-58.90 [facility] Comment on above: Performed By: #### U KIM, MG, PHOS #### [facility] [id number] Andrea Mccarthy CT SINUSES WO CONon [...] STEPHEN ROBLES Date: 2022-01-01 07:30 Normal [facility] INSULINon 11-15-2021 Insulin 9.0 uIU/mL Normal 2.6-24.9 [facility] Comment on above: Performed By: #### I NSULIN #### [facility] [address] [address] [address] Andrea Mccarthy PTH INTACTon 11-15-2021 PTH, Intact 43 pg/mL Normal 15-65 [facility] Comment on above: Performed By: #### U KIM MG, PHOS #### [facility] [address] [address] [address] Andrea Mccarthy VIT D 25-OH LABCORPon 2021 Vitamin D, 25-Hydroxy 85.4 ng/mL Normal 30.0-100.0 [facility] Comment on above: Result Comment: Samina min D deficiency has been defined by the Western of Medicine and an Endocrine Society practice guideline as a level of serum 25-OH vitamin D less than 20 ng/mL (1,2). The Endocrine Society went on to further define vitamin D insufficiency as a level between 21 and 29 ng/mL (2). 1. IOM (Western of Medicine). 2010. Dietary reference intakes for calcium and D. [place]: The National Academies Press. 2. Dagoberto MF, Rachel NC, Edilson MARTINEZ, et al. Evaluation, treatment, and prevention of vitamin D deficiency: an Endocrine Society clinical practice guideline. JCEM. 2010; 96(7):1911-30. Performed By: #### V ITADLC #### [facility] [address] [place] [address] Dr. Andrea Mccarthy CBC AUTO DIFFon 11-14-2021 BASO # 0.0 103/ul Normal 0.0-0.1 [facility] Comment on above: Performed By: #### U KIM, MG, PHOS #### [facility] [address] [place] [address] Dr. Andrea Mccarthy Basophils/100 WBC (Bld) 0.6 % Normal 0.2-2.0 [facility] Comment on above: Performed By: #### U KIM, MG, PHOS #### [facility] [address] [place] [address] Dr. Andrea Mccarthy EO # 0.2 103/ul Normal 0.0-0.7 [facility] Comment on above: Performed By: #### U KIM, MG, PHOS #### [facility] [address] [place] [address] Dr. Andrea Mccarthy Eosinophils/100 WBC (Bld) 2.4 % Normal 0.9-7.0 [facility] Comment on above: Performed By: #### U KIM, MG, PHOS #### [facility] [address] [address] [address] Andrea Mccarthy Erythrocyte distribution width (RBC) [Ratio] 14.0 % Normal 11.0-15.0 [facility] Comment on above: Performed By: #### U KIM, MG, PHOS #### [facility] [address] [address] [address] Andrea Mccarthy Hematocrit (Bld) [Volume fraction] 35.7 % Critically low 36.0-48.0 [facility] Comment on above: Performed By: #### U KIM, MG, PHOS #### [facility] [address] [address] [address] Andrea Mccarthy Hemoglobin (Bld) [Mass/Vol] 11.2 g/dL Critically low 12.0-16.0 [facility] Comment on above: Performed By: #### U KIM, MG, PHOS #### [facility] [address] [place] [address] Dr. Andrea Mccarthy IG # 0.02 10e3/ul Normal 0.00-0.03 [facility] Comment on above: Performed By: #### U KIM, MG, PHOS #### [facility] [address] [address] [address] Andrea Mccarthy IG % 0.3 % Normal 0.0-0.5 [facility] Comment on above: Performed By: #### U KIM, MG, PHOS #### [facility] [address] [address] [address] Andrea Mccarthy LYMPH # 1.8 103/ul Normal 1.2-3.8 [facility] Comment on above: Performed By: #### U KIM, MG, PHOS #### [facility] [address] [address] [address] Andrea Mccarthy Lymphocytes/100 WBC (Bld) 24.9 % Normal 20.5-60.0 [facility] Comment on above: Performed By: #### U KIM, MG, PHOS #### [facility] [address] [address] [address] Andrea Mccarthy MANUAL DIFF REQ NO Normal [facility] Comment on above: Performed By: #### U KIM, MG, PHOS #### [facility] [address] [place] [address] Dr. Andrea Mccarthy MCH (RBC) [Entitic mass] 27.3 pg Normal 26.7-34.0 [facility] Comment on above: Performed By: #### U KIM, MG, PHOS #### [facility] [address] [place] [address] Dr. Andrea Mccarthy MCHC (RBC) [Mass/Vol] 31.4 g/dL Normal 29.9-35.2 [facility] Comment on above: Performed By: #### U KIM, MG, PHOS #### [facility] [address] [place] [address] Dr. Andrea Mccarthy MCV (RBC) [Entitic vol] 87.1 fL Normal 81.0-99.0 [facility] Comment on above: Performed By: #### U KIM, MG, PHOS #### [facility] [address] [place] [address] Dr. Andrea Mccarthy MONO # 0.5 103/ul Normal 0.3-0.8 [facility] Comment on above: Performed By: #### U KIM, MG, PHOS #### [facility] [address] [place] [address] Dr. Andrea Mccarthy Monocytes/100 WBC (Bld) 7.0 % Normal 1.7-12.0 [facility] Comment on above: Performed By: #### U KIM, MG, PHOS #### [facility] [address] [place] [address] Dr. Andrea Mccarthy NEUT # 4.7 103/ul Normal 1.4-6.5 [facility] Comment on above: Performed By: #### U KIM, MG, PHOS #### [facility] [address] [place] [address] Dr. Andrea Mccarthy Neutrophils/100 WBC (Bld) 64.8 % Normal 43.0-75.0 [facility] Comment on above: Performed By: #### U KIM, MG, PHOS #### [facility] [address] [address] [address] Andrea Mccarthy Platelet mean volume (Bld) [Entitic vol] 10.1 fL Normal 9.5-13.5 [facility] Comment on above: Performed By: #### U KIM, MG, PHOS #### [facility] [address] [address] [address] Andrea Mccarthy PLT 309 103/ul Normal 150-450 [facility] Comment on above: Performed By: #### U KIM, MG, PHOS #### [facility] [address] [address] [address] Andrea Mccarthy RBC 4.10 106/ul Critically low 4.20-5.40 [facility] Comment on above: Performed By: #### U KIM, MG, PHOS #### [facility] [address] [place] [address] Dr. Andrea Mccarthy WBC 7.2 103/ul Normal 4.0-11.0 [facility] Comment on above: Performed By: #### U KIM, MG, PHOS #### [facility] [address] [address] [address] Andrea Mccarthy FREE THYROXINE INDEX T7on FTI 4.14 Normal 1.30-4.50 [facility] Comment on above: Performed By: #### U KIM, MG, PHOS #### [facility] [address] [place] [address] Dr. Andrea Mccarthy T3U 36.0 % Normal 30.0-39.0 [facility] Comment on above: Performed By: #### U KIM, MG, PHOS #### [facility] [address] [place] [address] Dr. Andrea Mccarthy T4 [Mass/Vol] 11.50 ug/dL Normal 4.80-13.90 [facility] Comment on above: Performed By: #### U KIM, MG, PHOS #### [facility] [address] [place] [address] Dr. Andrea Mccarthy GLYCOHEMOGLOBIN A1Con 2021 ADA RECOMMENDATION SEE BELOW Normal [facility] Comment on above: Result Comment: ADA RECOMMENDED LIMIT 4.0 - 6.0 ADA THERAPEUTIC TARGET < 7.0 ACTION SUGGESTED > 7.0 Performed By: #### A 1C #### [facility] [address] [place] [address] Dr. Andrea Mccarthy Glucose [Mass/Vol] 137 mg/dL Normal [facility] Comment on above: Performed By: #### A 1C #### [facility] [address] [address] [address] Andrea Mccarthy HbA1c (Bld) [Mass fraction] 6.4 % Critically high 4.5-6.2 [facility] Comment on above: Performed By: #### A 1C #### [facility] [address] [place] [address] Dr. Andrea Mccarthy IRONon 11-14-2021 Iron [Mass/Vol] 34.0 ug/dL Critically low 50.0-170.0 [facility] Comment on above: Performed By: #### U KIM, MG, PHOS #### [facility] [address] [place] [address] Dr. Andrea Mccarthy LIPID PROFILEon 11-14-2021 CHOL-HDL RATIO NORM SEE BELOW Normal [facility] Comment on above: Result Comment: 3.3 - 4.4 LOW RISK 4.4 - 7.1 AVERAGE RISK 7.1 - 11.0 MODERATE RISK >11.0 HIGH RISK Performed By: #### L IPID, TSH, T7, CMP #### [facility] [address] [place] [address] Dr. Andrea Mccarthy Cholesterol [Mass/Vol] 152 mg/dL Normal <=200 [facility] Comment on above: Performed By: #### L IPID, TSH, T7, CMP #### [facility] [address] [place] [address] Dr. Andrea Mccarthy Cholesterol in HDL [Mass/Vol] 51 mg/dL Normal 40-60 [facility] Comment on above: Performed By: #### L IPID, TSH, T7, CMP #### [facility] [address] [place] [address] Dr. Andrea Mccarthy Cholesterol in LDL [Mass/Vol] 83.4 mg/dL Normal [facility] Comment on above: Performed By: #### L IPID, TSH, T7, CMP #### [facility] [address] [address] [address] Andrea Mccarthy Cholesterol.total/Choles terol in HDL [Mass ratio] 3.0 {ratio} Normal [facility] Comment on above: Performed By: #### L IPID, TSH, T7, CMP #### [facility] [address] [address] [address] Andrea Mccarthy HDL NORMAL > or = 60 mg/dl - LOW CARDIOVASCULAR RISK <40 mg/dl - HIGH CARDIOVASCULAR RISK Normal [facility] Comment on above: Performed By: #### L IPID, TSH, T7, CMP #### [facility] [address] [address] [address] Andrea Mccarthy LDL CALC NORMAL SEE BELOW Normal [facility] Comment on above: Result Comment: <100 mg/dl OPTIMAL 100 - 129 mg/dl NEAR OR ABOVE OPTIMAL 130 - 159 mg/dl BORDERLINE HIGH 160 - 189 mg/dl HIGH >190 mg/dl VERY HIGH Performed By: #### L IPID, TSH, T7, CMP #### [facility] [address] [address] [address] Andrea Mccarthy Triglyceride [Mass/Vol] 88 mg/dL Normal <=[address] [facility] Comment on above: Performed By: #### L IPID, TSH, T7, CMP #### [facility] [address] [address] [address] Andrea Mccarthy VLDL CALC 17.6 mg/dL Normal [facility] Comment on above: Performed By: #### L IPID, TSH, T7, CMP #### [facility] [address] [address] [address] Andrea Mccarthy MAGNESIUMon 11-14-2021 Magnesium [Mass/Vol] 2.2 mg/dL Normal 1.8-2.4 [facility] Comment on above: Performed By: #### U KIM, MG, PHOS #### [facility] [address] [address] [address] Andrea Mccarthy PHOSPHORUSon 11-14-2021 Phosphate [Mass/Vol] 3.0 mg/dL Normal 2.6-4.7 [facility] Comment on above: Performed By: #### U KIM, MG, PHOS #### [facility] [address] [address] [address] Andrea Mccarthy PROF 14(COMP METB)on 022 Albumin [Mass/Vol] 3.2 g/dL Critically low 3.4-5.0 [facility] Comment on above: Performed By: #### L IPID, TSH, T7, CMP #### [facility] [address] [address] [address] Andrea Mccarthy Albumin/Globulin [Mass ratio] 0.8 {ratio} Normal [facility] Comment on above: Performed By: #### L IPID, TSH, T7, CMP #### [facility] [address] [address] [address] Andrea Mccarthy ALP [Catalytic activity/Vol] 51 U/L Normal 46-116 [facility] Comment on above: Performed By: #### L IPID, TSH, T7, CMP #### [facility] [address] [address] [address] Andrea Mccarthy ALT [Catalytic activity/Vol] 13 U/L Critically low 14-59 [facility] Comment on above: Performed By: #### L IPID, TSH, T7, CMP #### [facility] [address] [address] [address] Andrea Mccarthy Anion gap [Moles/Vol] 11.4 mmol/L Normal [facility] Comment on above: Performed By: #### L IPID, TSH, T7, CMP #### [facility] [address] [address] [address] Andrea Mccarthy AST [Catalytic activity/Vol] 9 U/L Critically low 15-37 [facility] Comment on above: Performed By: #### L IPID, TSH, T7, CMP #### [facility] [address] [address] [address] Andrea Mccarthy Bilirubin [Mass/Vol] 0.3 mg/dL Normal 0.2-1.0 [facility] Comment on above: Performed By: #### L IPID, TSH, T7, CMP #### [facility] [address] [place] [address] Dr. Andrea Mccarthy Calcium [Mass/Vol] 8.4 mg/dL Critically low 8.5-10.1 [facility] Comment on above: Performed By: #### L IPID, TSH, T7, CMP #### [facility] [address] [place] [address] Dr. Andrea Mccarthy Chloride [Moles/Vol] 105 mmol/L Normal 98-107 [facility] Comment on above: Performed By: #### L IPID, TSH, T7, CMP #### [facility] [address] [place] [address] Dr. Andrea Mccarthy CO2 [Moles/Vol] 27.7 mmol/L Normal 21.0-32.0 [facility] Comment on above: Performed By: #### L IPID, TSH, T7, CMP #### [facility] [address] [place] [address] Dr. Andrea Mccarthy Creatinine [Mass/Vol] 1.31 mg/dL Critically high 0.55-1.02 [facility] Comment on above: Performed By: #### L IPID, TSH, T7, CMP #### [facility] [address] [place] [address] Dr. Andrea Mccarthy EGFR-AF BRAZILIAN 49 mL/min/1.73m2 Critically low >=60 [facility] Comment on above: Performed By: #### L IPID, TSH, T7, CMP #### [facility] [address] [place] [address] Dr. Andrea Mccarthy EGFR-NON AF BRAZILIAN 40 mL/min/1.73m2 Critically low >=60 [facility] Comment on above: Performed By: #### L IPID, TSH, T7, CMP #### [facility] [address] [place] [address] Dr. Andrea Mccarthy Globulin (S) [Mass/Vol] 3.9 g/dL Normal T [facility] Comment on above: Performed By: #### L IPID, TSH, T7, CMP #### [facility] [address] [address] [address] Andrea Mccarthy Glucose [Mass/Vol] 97 mg/dL Normal 74-106 [facility] Comment on above: Performed By: #### L IPID, TSH, T7, CMP #### [facility] [address] [address] [address] Andrea Mccarthy Potassium [Moles/Vol] 4.1 mmol/L Normal 3.5-5.1 [facility] Comment on above: Performed By: #### L IPID, TSH, T7, CMP #### [facility] [address] [place] [address] Dr. Andrea Mccarthy Protein [Mass/Vol] 7.1 g/dL Normal 6.4-8.2 [facility] Comment on above: Performed By: #### L IPID, TSH, T7, CMP #### [facility] [address] [address] [address] Andrea Mccarthy Sodium [Moles/Vol] 140 mmol/L Normal 136-145 [facility] Comment on above: Performed By: #### L IPID, TSH, T7, CMP #### [facility] [address] [place] [address] Dr. Andrea Mccarthy Urea nitrogen [Mass/Vol] 23.0 mg/dL Critically high 7.0-18 .0 [facility] Comment on above: Performed By: #### L IPID, TSH, T7, CMP #### [facility] [address] [place] [address] Dr. Andrea Mccarthy Urea nitrogen/Creatinine [Mass ratio] 17.6 mg/mg Normal [facility] Comment on above: Performed By: #### L IPID, TSH, T7, CMP #### [facility] [address] [place] [address] Dr. Andrea Mccarthy TSHon 11-14-2021 TSH 0.032 uIU/mL Critically low 0.358-3.740 [facility] Comment on above: Performed By: #### U KIM, MG, PHOS #### [facility] [address] [place] [address] Dr. Andrea Mccarthy UA RANDOM W/MICROSCOPICon BACTERIA NONE SEEN Normal NONE SEEN [facility] Comment on above: Performed By: #### U KIM, MG, PHOS #### [facility] [address] [place] [address] Dr. Andrea Mccarthy Bilirubin Ql (U) Negative Normal NEGATIVE [facility] Comment on above: Performed By: #### U KIM, MG, PHOS #### [facility] [address] [place] [address] Dr. Andrea Mccarthy CAST NONE SEEN Normal NONE SEEN [facility] Comment on above: Performed By: #### U KIM, MG, PHOS #### [facility] [address] [place] [address] Dr. Andrea Mccarthy Clarity (U) CLEAR Normal CLEAR [facility] Comment on above: Performed By: #### U KIM, MG, PHOS #### [facility] [address] [place] [address] Dr. Andrea Mccarthy Color (U) YELLOW Normal YELLOW [facility] Comment on above: Performed By: #### U KIM, MG, PHOS #### [facility] [address] [place] [address] Dr. Andrea Mccarthy Crystals LM Nom (Urine sed) NONE SEEN Normal NONE SEEN [facility] Comment on above: Performed By: #### U KIM, MG, PHOS #### [facility] [address] [place] [address] Dr. Andrea Mccarthy Epithelial cells LM Ql (Urine sed) FEW Abnormal NONE SEEN /RARE [facility] Comment on above: Performed By: #### U KIM, MG, PHOS #### [facility] [address] [place] [address] Dr. Andrea Mccarthy Glucose Ql (U) Negative Normal NEGATIVE [facility] Comment on above: Performed By: #### U KIM, MG, PHOS #### [facility] [address] [place] [address] Dr. Andrea Mccarthy Hemoglobin Ql (U) TRACE-INTACT Abnormal NEGATIVE [facility] Comment on above: Performed By: #### U KIM, MG, PHOS #### [facility] [address] [place] [address] Dr. Andrea Mccarthy Ketones Ql (U) Negative Normal NEGATIVE [facility] Comment on above: Performed By: #### U KIM, MG, PHOS #### [facility] [address] [address] [address] Andrea Mccarthy LEUKOCYTES Negative Normal NEGATIVE [facility] Comment on above: Performed By: #### U KIM, MG, PHOS #### [facility] [address] [place] [address] Dr. Andrea Mccarthy MUCOUS SMALL Abnormal NONE SEEN [facility] Comment on above: Performed By: #### U KIM, MG, PHOS #### [facility] [address] [place] [address] Dr. Andrea Mccarthy Nitrite Ql (U) Negative Normal NEGATIVE [facility] Comment on above: Performed By: #### U KIM, MG, PHOS #### [facility] [address] [place] [address] Dr. Andrea Mccarthy pH (U) 5.5 [pH] Normal 5-9 [facility] Comment on above: Performed By: #### U KIM, MG, PHOS #### [facility] [address] [place] [address] Dr. Andrea Mccarthy RBC 0-2 Normal 0-2 [facility] Comment on above: Performed By: #### U KIM, MG, PHOS #### [facility] [address] [place] [address] Dr. Andrea Mccarthy SPEC GRAVITY 1.020 Normal 1.005-<=1.02 5 [facility] Comment on above: Performed By: #### U KIM, MG, PHOS #### [facility] [address] [place] [address] Dr. Andrea Mccarthy UA PROTEIN Negative Normal NEGATIVE/ TRACE [facility] Comment on above: Performed By: #### U KIM, MG, PHOS #### [facility] [address] [place], [place] [id number] Dr. Andrea Mccarthy Urobilinogen Qn (U) 0.2 {Mikel'U}/dL Normal 0.2 - 1. 0 [facility] Comment on above: Performed By: #### U KIM, MG, PHOS #### [facility] [address] [place] [address] Dr. Andrea Mccarthy WBC NONE SEEN Normal NONE SEEN [facility] Comment on above: Performed By: #### U KIM, MG, PHOS #### [facility] [address] [place] [address] Dr. Andrea Mccarthy URIC ACID SERUMon 11-14-2021 Urate [Mass/Vol] 5.0 mg/dL Normal 2.6-6.0 [facility] Comment on above: Performed By: #### U KIM, MG, PHOS #### [facility] [address] [place] [address] Dr. Andrea Mccarthy URINE T PROTEIN CREAT RATIOo n 11-14-2021 Protein (U) [Mass/Vol] 22.3 mg/dL Critically high <=12.0 [facility] Comment on above: Performed By: #### U KIM, MG, PHOS #### [facility] [address] [address] [address] Andrea Mccarthy UR PROT CREAT RAT 0.15 Normal [facility] Comment on above: Performed By: #### U KIM, MG, PHOS #### [facility] [address] [place] [address] Dr. Andrea Mccarthy URINE CREAT 151.50 mg/dL Normal 20.00-300.00 [facility] Comment on above: Performed By: #### U KIM, MG, PHOS #### [facility] [address] [place] [address] Dr. Andrea Mccarthy Vital Signs Date Time Vital Sign Value Performing Clinician Facility 11-12-2024 11:02-0400 Body height 162.56 cm Yaritza FORD Work Phone: [facility] 11-12-2024 11:02-0400 Body mass index (BMI) [Ratio] 30.2 kg/m2 Yaritzago Valeriomer [employer] Work Phone: [facility] 11-12-2024 11:02-0400 Body temperature 97.1 [degF] Yaritzago Valeriomer [employer] Work Phone: [facility] 11-12-2024 11:02-0400 Body weight 80 kg Yaritzago Valeriomer [employer] Work Phone: [facility] 11-12-2024 11:02-0400 Diastolic blood pressure 92 mm[Hg] Yaritzago Valeriomer [employer] Work Phone: [facility] 11-12-2024 11:02-0400 Heart rate 103 /min Yaritzago Valeriomer [employer] Work Phone: [facility] 11-12-2024 11:02-0400 Respiratory rate 18 /min Yaritzago Valeriomer [employer] Work Phone: [facility] 11-12-2024 11:02-0400 SaO2% (BldA) [Mass fraction] 98 % Yaritza John [employer] Work Phone: [facility] 11-12-2024 11:02-0400 Systolic blood pressure 135 mm[Hg] Yaritza John [employer] Work Phone: [facility] 07-17-2024 17:52-0400 Body height 162.56 cm [facility] 07-17-2024 17:52-0400 Body mass index (BMI) [Ratio] 30.5 kg/m2 [facility] 07-17-2024 17:52-0400 Body temperature 97.8 [degF] [facility] 07-17-2024 17:52-0400 Body weight 80.79 kg [facility] 07-17-2024 17:52-0400 Diastolic blood pressure 87 mm[Hg] [facility] 07-17-2024 17:52-0400 Heart rate 104 /min [facility] 07-17-2024 17:52-0400 Respiratory rate 18 /min [facility] 07-17-2024 17:52-0400 SaO2% (BldA) [Mass fraction] 94 % [facility] 07-17-2024 17:52-0400 Systolic blood pressure 130 mm[Hg] [facility] 06-29-2024 13:34-0400 Body height 162.56 cm [facility] 06-29-2024 13:34-0400 Body mass index (BMI) [Ratio] 30.2 kg/m2 [facility] 06-29-2024 13:34-0400 Body temperature 97.6 [degF] [facility] 06-29-2024 13:34-0400 Body weight 80.05 kg [facility] 06-29-2024 13:34-0400 Diastolic blood pressure 79 mm[Hg] [facility] 06-29-2024 13:34-0400 Heart rate 68 /min [facility] 06-29-2024 13:34-0400 Respiratory rate 19 /min [facility] 06-29-2024 13:34-0400 SaO2% (BldA) [Mass fraction] 97 % [facility] 06-29-2024 13:34-0400 Systolic blood pressure 141 mm[Hg] [facility] 05-12-2024 10:59-0500 Body height 162.56 cm [facility] 05-12-2024 10:59-0500 Body mass index (BMI) [Ratio] 30.2 kg/m2 [facility] 05-12-2024 10:59-0500 Body weight 80 kg [facility] 05-12-2024 10:59-0500 Diastolic blood pressure 80 mm[Hg] [facility] 05-12-2024 10:59-0500 Heart rate 87 /min [facility] 05-12-2024 10:59-0500 Respiratory rate 16 /min [facility] 05-12-2024 10:59-0500 SaO2% (BldA) [Mass fraction] 96 % [facility] 05-12-2024 10:59-0500 Systolic blood pressure 117 mm[Hg] [facility] 05-03-2024 09:59-0500 Body height 162.56 cm [facility] 05-03-2024 09:59-0500 Body mass index (BMI) [Ratio] 30 kg/m2 [facility] 05-03-2024 09:59-0500 Body temperature 97.3 [degF] [facility] 05-03-2024 09:59-0500 Body weight 79.49 kg [facility] 05-03-2024 09:59-0500 Diastolic blood pressure 82 mm[Hg] [facility] 05-03-2024 09:59-0500 Heart rate 110 /min [facility] 05-03-2024 09:59-0500 Respiratory rate 16 /min [facility] 05-03-2024 09:59-0500 SaO2% (BldA) [Mass fraction] 95 % [facility] [facility] 05[facility]2024 09:59-0500 Systolic blood pressure 121 mm[Hg] [facility] 11-11-2023 12:58-0400 Body height 162.56 cm [facility] 11-11-2023 12:58-0400 Body mass index (BMI) [Ratio] 30 kg/m2 [facility] 11-11-2023 12:58-0400 Body weight 79.37 kg [facility] 11-11-2023 12:58-0400 Diastolic blood pressure 88 mm[Hg] [facility] 11-11-2023 12:58-0400 Systolic blood pressure 136 mm[Hg] [facility] 10-19-2023 12:21-0400 Body height 162.56 cm [facility] 10-19-2023 12:21-0400 Body mass index (BMI) [Ratio] 30.4 kg/m2 [facility] 10-19-2023 12:21-0400 Body temperature 98.3 [degF] [facility] 10-19-2023 12:21-0400 Body weight 80.39 kg [facility] 10-19-2023 12:21-0400 Heart rate 82 /min [facility] 10-19-2023 12:21-0400 Respiratory rate 16 /min [facility] 10-19-2023 12:21-0400 SaO2% (BldA) [Mass fraction] 96 % [facility] 05-21-2023 10:40-0500 Body height 162.56 cm Audie Dionne Other [facility] Other 05-21-2023 10:40-0500 Body mass index (BMI) [Ratio] 29.59 kg/m2 Audie Dionne Other [facility] Other 05-21-2023 10:40-0500 Body temperature 96.3 [degF] Audie Dionne Other [facility] Other 05-21-2023 10:40-0500 Body weight 78.2 kg Audie Dionne Other [facility] Other 05-21-2023 10:40-0500 Diastolic blood pressure 80 mm[Hg] Audie Dionne Other [facility] Other 05-21-2023 10:40-0500 Respiratory rate 18 /min Audie Dionne Other [facility] Other 05-21-2023 10:40-0500 SaO2% (BldA) [Mass fraction] 98 % Audie Dionne Other [facility] Other 05-21-2023 10:40-0500 Systolic blood pressure 118 mm[Hg] Audie Dionne Other [facility] Other 11-19-2022 11:00-0400 Body height 162.56 cm Audie Dionne Other [facility] Other 11-19-2022 11:00-0400 Body mass index (BMI) [Ratio] 28.9 kg/m2 Audie Dionne Other [facility] Other 11-19-2022 11:00-0400 Body temperature 96 [degF] Audie Dionne Other [facility] Other 11-19-2022 11:00-0400 Body weight 76.39 kg Audie Dionne Other [facility] Other 11-19-2022 11:00-0400 Diastolic blood pressure 81 mm[Hg] Audie Dionne Other [facility] Other 11-19-2022 11:00-0400 Respiratory rate 18 /min Audie Dionne Other [facility] Other 11-19-2022 11:00-0400 SaO2% (BldA) [Mass fraction] 98 % Audie Dionne Other [facility] Other 11-19-2022 11:00-0400 Systolic blood pressure 132 mm[Hg] Audie Dionne Other [facility] Other 07-02-2022 14:17-0400 Blood Pressure Location Iván TOMLIN [facility] 07-02-2022 14:17-0400 Diastolic blood pressure 88 mm[Hg] Iván TOMLIN [facility] 07-02-2022 14:17-0400 Heart rate 71 /min Iván TOMLIN [facility] 07-02-2022 14:17-0400 Systolic blood pressure 128 mm[Hg] Iván TOMLIN [facility] 05-29-2022 10:40-0500 Body height 162.56 cm Audie Dionne Other [facility] Other 05-29-2022 10:40-0500 Body mass index (BMI) [Ratio] 28.22 kg/m2 Audie Dionne Other [facility] Other 05-29-2022 10:40-0500 Body temperature 96.3 [degF] Audie Dionne Other [facility] Other 05-29-2022 10:40-0500 Body weight 74.57 kg Audie Dionne Other [facility] Other 05-29-2022 10:40-0500 Diastolic blood pressure 81 mm[Hg] Audie Dionne Other [facility] Other 05-29-2022 10:40-0500 Respiratory rate 18 /min Audie Dionne Other [facility] Other 05-29-2022 10:40-0500 SaO2% (BldA) [Mass fraction] 98 % Audie Dionne Other [facility] Other 05-29-2022 10:40-0500 Systolic blood pressure 125 mm[Hg] Audie Dionne Other [facility] Other 11-21-2021 12:40-0400 Body height 162.56 cm Audie Dionne Other [facility] Other 11-21-2021 12:40-0400 Body mass index (BMI) [Ratio] 28.22 kg/m2 Audie Dionne Other [facility] Other 11-21-2021 12:40-0400 Body temperature 96.8 [degF] Audie Dionne Other [facility] Other 11-21-2021 12:40-0400 Body weight 74.57 kg Audie Dionne Other [facility] Other 11-21-2021 12:40-0400 Diastolic blood pressure 79 mm[Hg] Audie Dionne Other [facility] Other 11-21-2021 12:40-0400 Respiratory rate 18 /min Audie Dionne Other [facility] Other 11-21-2021 12:40-0400 SaO2% (BldA) [Mass fraction] 98 % Audie Dionne Other [facility] Other 11-21-2021 12:40-0400 Systolic blood pressure 117 mm[Hg] Audie Dionne Other [facility] Other 06-01-2021 16:20-0500 Body height 162.56 cm Audie Dionne Other [facility] Other 06-01-2021 16:20-0500 Body mass index (BMI) [Ratio] 30.89 kg/m2 Audie Dionne Other [facility] Other 06-01-2021 16:20-0500 Body temperature 96.5 [degF] Audie Dionne Other [facility] Other 06-01-2021 16:20-0500 Body weight 81.65 kg Audie Dionne Other [facility] Other 06-01-2021 16:20-0500 Diastolic blood pressure 80 mm[Hg] Audie Dionne Other [facility] Other 06-01-2021 16:20-0500 Respiratory rate 18 /min Audie Dionne Other [facility] Other 06-01-2021 16:20-0500 SaO2% (BldA) [Mass fraction] 98 % Audie Dionne Other [facility] Other 06-01-2021 16:20-0500 Systolic blood pressure 119 mm[Hg] Audie Dionne Other [facility] Other 03-27-2021 16:20-0500 Body height 162.56 cm Audie Dionne Other [facility] Other 03-27-2021 16:20-0500 Body mass index (BMI) [Ratio] 31.55 kg/m2 Audie Dionne Other [facility] Other 03-27-2021 16:20-0500 Body temperature 96.5 [degF] Audie Dionne Other [facility] Other 03-27-2021 16:20-0500 Body weight 83.37 kg Audie Dionne Other [facility] Other 03-27-2021 16:20-0500 Diastolic blood pressure 80 mm[Hg] Audie Dionne Other [facility] Other 03-27-2021 16:20-0500 Respiratory rate 18 /min Audie Dionne Other [facility] Other 03-27-2021 16:20-0500 SaO2% (BldA) [Mass fraction] 99 % Audie Dionne Other [facility] Other 03-27-2021 16:20-0500 Systolic blood pressure 119 mm[Hg] Audie Dionne Other [facility] Other Encounters Encounter Date Encounter Type Care Provider Facility Start: 11-12-2024 End: 11-12-2024 ambulatory Yaritza Lopez [employer] [employer] Work Phone: [facility] Work Phone: Start: 11-12-2024 End: 11-12-2024 Patient encounter procedure Audie Truong MD -[facility] Work Phone: Start: 11-04-2024 Non-patient / Non-visit Audie Truong MD -[facility] [employer] Work Phone: Start: 07-17-2024 End: 07-17-2024 ambulatory [facility] Work Phone: Start: 07-17-2024 End: 07-17-2024 Patient encounter procedure [facility] Work Phone: Start: 06-29-2024 End: 06-29-2024 ambulatory [facility] Work Phone: Start: 06-29-2024 End: 06-29-2024 Patient encounter procedure [facility] Work Phone: Start: 05-12-2024 End: 05-12-2024 ambulatory [facility] Work Phone: Start: 05-12-2024 End: 05-12-2024 Patient encounter procedure [facility] Work Phone: Start: 05-05-2024 Non-patient / Non-visit [facility] Work Phone: Start: 05-03-2024 End: 05-03-2024 ambulatory [facility] Work Phone: Start: 05-03-2024 End: 05-03-2024 Patient encounter procedure [facility] Work Phone: Start: 11-11-2023 End: 11-11-2023 ambulatory [facility] Work Phone: Start: 11-11-2023 End: 11-11-2023 Patient encounter procedure [facility] Work Phone: Start: 11-07-2023 Non-patient / Non-visit [facility] Work Phone: Start: 10-19-2023 End: 10-19-2023 ambulatory [facility] Work Phone: Start: 10-19-2023 End: 10-19-2023 Patient encounter procedure [facility] Work Phone: Start: 05-21-2023 End: 05-21-2023 ambulatory Audie Dionne Other [facility] Other Start: 05-21-2023 Office outpatient vi sit 25 minutes Audie Dionne [facility] Start: 11-19-2022 End: 11-19-2022 ambulatory Audie Dionne Other [facility] Other Start: 11-19-2022 Office outpatient vi sit 15 minutes Audie Dionne [facility] Start: 09-06-2022 ambulatory YARITZA LOPEZ Facility: Start: 07-17-2022 End: 07-18-2022 ambulatory Iván TOMLIN Facility:[facility] Start: 07-17-2022 End: 07-17-2022 Patient encounter procedure Iván TOMLIN [facility] Start: 07-07-2022 End: 07-08-[address] IVÁN TOMLIN . Facility: Start: 07-02-2022 End: 07-03-2022 ambulatory AUDIE DIONNE Facility: [place] Start: 07-02-2022 End: 07-02-2022 Patient encounter procedure Iván TOMLIN [facility] Start: 05-31-2022 ambulatory AUDIE DIONNE Facility :[facility] [place] Start: 05-29-2022 End: 05-29-2022 ambulatory Audie Dionne Other [facility] Other Start: 05-29-2022 Office outpatient vi sit 25 minutes Audie Dionne [facility] Start: 05-21-2022 End: 05-22-2022 ambulatory YARITZA LOPEZ Facility:[facility] Start: 12-30-2021 End: 12-31-2021 ambulatory YARITZA LOPEZ Facility:[facility] Start: 11-21-2021 End: 11-21-2021 ambulatory Audie Dionne Other [facility] Other Start: 11-21-2021 Office outpatient vi sit 25 minutes Audie Dionne [facility] Start: 11-14-2021 End: 11-15-2021 ambulatory AUDIE DIONNE Facility:[facility] Start: 06-02-2021 End: 06-02-2021 ambulatory Audie Dionne Other [facility] Other Start: 06-02-2021 Telephone encounter Audie Dionne [facility] Start: 06-01-2021 End: 06-01-2021 ambulatory Audie Dionne Other [facility] Other Start: 06-01-2021 Office outpatient vi sit 25 minutes Audie Dionne [facility] Start: 03-27-2021 End: 03-27-2021 ambulatory Audie Dionne Other [facility] Other Start: 03-27-2021 Office outpatient ne w 45 minutes Audie Dionne [facility] Procedures Date Procedure Procedure Detail Performing Clinician Start: 01-08-2019 Esophagogastroduodenoscopy Iván TOMLIN Abdominal hysterectomy Clarence TOMLIN Appendectomy Iván TOMLIN Colonoscopy Iván TOMLIN Plan of Treatment Date Care Activity Detail Author Start: 11-12-2024 Patient referral [facility] Work Phone: Patient referral [facility] Work Phone: Renal function 1999 panel - Serum or Plasma [facility] Renal function 1999 panel - Serum or Plasma [facility] Renal function 1999 panel - Serum or Plasma [facility] Payers Date Payer Category Payer Private Health Insurance [id number] 1950 Unknown [id number] 2.16.8 [id number] 1950 Unknown [id number] 2.16.8 [id number] 1950 Unknown [id number] 2.16.84 [id number] 1950 Unknown [id number] 2.16.84 [id number] 1950 Unknown [id number] 2.16.84 [id number] 1950 Unknown [id number] 2.16.84 [id number] 1950 Unknown [id number] 2.16.84 [id number] 1950 Unknown [id number] 2.16.84 [id number] Self-pay Self Pay [id number] Unknown [id number] Social History Date Type Detail Facility Tobacco smoking stat [facility] Unknown if ever smoked [facility] Start: 1950 Sex Assigned At Female F [facility] Sex Assigned At [facility] Start: 07-02-2022 End: 10-19-2023 Tobacco smoking status Never smoked tobacco (finding) [facility] Tobacco smoking status Never [facility] Start: 05-03-2024 End: 07-17-2024 Sex Female (finding) [facility] Goals Date Patient Goal Desired Activity /State Functional Status Date Assessment Result Facility 07-02-2022 Functional Status N/A [facility] Clinical Notes 03-27-2021 to 05-03-2024 Note Date & Type Note Facility 05-03-2024 Evaluation note Diagnosis Onset Date Resolution Maxillary sinusitis, acute acute May 03, 2024 9:55am Anemia of renal disease acute J anuary 2024 10:48am CKD (chronic kidney disease) stage 3, GFR 30-59 ml/min acute May 12, 2024 10:48am Hyperlipidemia acute May 122024 10:48am Hypertensive chronic kidney disease with stage 1 through stage 4 chronic ki acute 2024 10:48am Hypomagnesemia acute May 122024 10:48am Microscopic hematuria acute Apr 10:48am Secondary hyperparathyroidism acute April 10:48am [facility] Work Phone: 1(988) 472-272401-12-2025 Evaluation note* Diagnosis Onset Date Resolution Status Admit Date Maxillary sinusitis, acute acute May 03, 2024 9:55am Anemia of renal disease acute J anuary 2024 10:48am CKD (chronic kidney disease) stage 3, GFR 30-59 ml/min acute April 10:48am Hyperlipidemia acute May 122024 10:48am Hypertensive chronic kidney disease with stage 1 through stage 4 chronic ki acute May 12 10:48am Hypomagnesemia acute May 122024 10:48am Microscopic hematuria acute Apr 10:48am Secondary hyperparathyroidism acute May 12, 2024 10:48am Viral URI acute June 29 1:17pm [facility] Work Phone: 1(732) 897-640601-30-2024 Evaluation note* Encounter Date Diagnosis Assessment Notes [...] stain. Monitor LFTs and lipid profile periodically. [facility] Other 07-31-2023 Evaluation note* Encounter Date Diagnosis [...] advised to have repeat in 5 yrs [facility] Other 03-28-2023 Note [id number]:127[facility] 07-17-2022 Hospital Discharge instructions Patient Education [...] Address: [facility] [address] [place] [address] Business (1) When: Unknown Comments:Call for any problems. [facility]03-28-2023 NoteCustom Cystoscopy ? Voiding after [...] have a fever over 100 degrees.[facility] 07-02-2022 NoteChief Complaint Pt here for [...] Contact Information Iván TOMLIN MD, [facility] [address] [place] [address]- Additional Instructions: schedule cysto, CHRIS Patient Education [...] tab(s), Oral, q6hr fluticasone 0.05 mg/inh Nasal [place], 2 spray(s), Nasal, Daily (more content not included)...[facility]Result Comment: Electronically Signed By: Iván TOMLIN MD\.br\Date and Time Signed: 07/02/22 14:52 EDT\.br\Electronically Co-Signed By: Moira Estrada\.br\Date and Time Co-Signed: 07/02/22 14:50 [id number] Hospital Discharge instructions Patient Education 07/02/2022 14:22:27 [...] Follow these instructions at home: Medicines Take mhzw-cva-abbpctk and prescription medicines only as told by [...] or the blood stops without treatment. Take bfum-sfz-eajfxbq and prescription medicines only as told by your health care provider. Drink enough fluid to keep your urine clear or pale yellow. This information is not intended to replace advice given to you by your health care provider. Make sure you discuss any questions you have with your health care provider. Document Released: 04/08/2006 Document Revised: 09/02/2019 Document Reviewed: 05/11/2017 [employer] Patient Education 2020 [employer]. Follow Up Care 05/31/2022 13:31:32 With:KELLY BLACKMON, Iván Hsu, URL Address: [facility] [address], [place] [address]- When: Unknown [facility] 02-07-2023 Evaluation note* Encounter Date Diagnosis [...] advised to have repeat in 5 yrs [facility] Other 08-02-2022 Evaluation note* Encounter Date Diagnosis [...] stain. Monitor LFTs and lipid profile periodically. [facility] Other 02-10-2022 Evaluation note* Encounter Date Diagnosis [...] stain. Monitor LFTs and lipid profile periodically. [facility] Other 12-06-2021 Evaluation note* Encounter Date Diagnosis [...] PCP. Mar, Dyslipidemia (ICD-10 - E78.5) Continue [place]. Monitor LFTs and lipid profile periodically. [facility] Other Evaluation + Plan note Future Appointments Appointment Date:07/10/2022 11:30:00 AM Scheduled Provider: Location:[facility] Appointment Type:Urology CALL PAT Appointment Date:07/17/2022 08:45:00 AM Scheduled Provider: Location:[facility] Appointment Type:Urology FT Diagnostic Tests Pending * Urine Cytology ([facility]) 07/02/22 [facility] [place] evaluation noteNo Assessments Information Available [facility] noteNo InformationNortHelen [facility] Zip[facility] Other Evaluation noteNo assessment information available [facility] Work Phone: Evaluation note* Diagnosis Onset Date Resolution Status Maxillary sinusitis, acute a cute Anemia of renal disease acut e CKD (chronic kidney disease) stage 3, GFR 30-59 ml/min acute Hyperlipidemia acute [id number] acute Hypomagnesemia acute Secondary hyperparathyroidism acute [facility] Work Phone: Evaluation note* Diagnosis Onset [...] 12, 2024 11:00am Thrombocytopenia acute October 11:00am [facility] Work Phone: Hispflv general Narrative - Reported* Type Description Date Medical History HTN Medical History Hypothyroidism Medical History hyperlipidemia Medical History acid reflux Medical History anxiety Medical History PRE DIABETIC Medical History mixed hypercholestolemia Medical History CKD STAGE 3 Medical History INSOMNIA Surgical History hysterectomy, total with BSO Surgical History fallopian tube removed Hospitalization History see above hx Hospitalization History [facility] Other history general Narrative - Reported* Type Description Date [...] History see above hx Hospitalization History N&V [facility] Other Hospital course Narrative No data available for this section [facility] Hospital Discharge instructionsAmbulatory Orders* Referral to Hematology Time Frame: 11/12/24, Location: None [facility] Work Phone: [place] note No data available for this section [facility] Summary Purpose Family History Relationship Condition [...] disease) stage 3, GFR 30-59 ml/min Hyperlipidemia [id number] Hypomagnesemia Secondary hyperparathyroidism Chief Complaint Admit Date [...] Viral URI June 29, 2024 1:1 7pm Chief Complaint Admit Date RENAL 6 MONTH [...] 11:00am Thrombocytopenia November 12, 2024 11:0 0am Additional Source Comments REASON FOR VISIT (unrecogniz ed section and content) RENAL CKD 3CKD and hyperpara thyroidismNo InformationCKD and HTNCKD and HTNCKD and HTNCKD and HTN Patient Care team informatio n (unrecognized section and content) Team Status: Active Member Role Status Dates Yaritza Lopez , [employer] Primary Care Provider Active Team Status: Active Member Role Status Dates Yaritza Lopez , [employer] Primary Care Provider Active Start: November 04, 2024 Audie Truong MD Attending Provider Active Start : November 04, 2024 Team Status: Inactive Member Role Status Dates Yaritza Lopez , [employer] Primary Care Provider Active Start: November 12, 2024 End: November 12, 2024 Audie Truong MD Attending Provider Active Start : November 12, 2024 End: November 12, 2024 Team Status: Active Member Role Status Dates Yaritza Lopez , [employer]C Primary Care Provider Active Team Status: Inactive Member Role Status Dates Yaritza Lopez , [employer] Primary Care Provider Active Start: October 19, 2023 End: October 19, 2023 Marianne Ragsdale APRN Attending Provider Active Start: October 19, 2023 End: October 19, 2023 Team Status: Active Member Role Status Dates Yaritza Lopez , [employer] Primary Care Provider Active Start: November 07, 2023 Aduie Truong MD Attending Provider Active Start : November 07, 2023 Team Status: Inactive Member Role Status Dates Yaritza Lopez , [employer] Primary Care Provider Active Start: November 11, 2023 End: November 11, 2023 Audie Truong MD Attending Provider Active Start : November 11, 2023 End: November 11, 2023 Team Status: Inactive Member Role Status Dates Yaritza Lopez , [employer] Primary Care Provider Active Start: May 03, 2024 End: May 03, 2024 Ella Monsalve APRN Attending Provider Active S tart: May 03, 2024 End: May 03, 2024 Team Status: Active Member Role Status Dates Yaritza Lopez , [employer] Primary Care Provider Active Start: May 05, 2024 Audie Truong MD Attending Provider Active Start : May 05, 2024 Team Status: Inactive Member Role Status Dates Yaritza Lopez , [employer]C Primary Care Provider Active Start: May 12, 2024 End: May 12, 2024 Audie Truong MD Attending Provider Active Start : May 12, 2024 End: May 12, 2024 Team Status: Inactive Member Role Status Dates Yaritza Lopez [employer] Primary Care Provider Active Start: June 29, 2024 End: June 29, 2024 Marianne Ragsdale APRN Attending Provider Active Start: June 29, 2024 End: June 29, 2024 Team Status: Inactive Member Role Status Dates Yaritza Lopez , [employer] Primary Care Provider Active Start: July 17, 2024 End: July 17, 2024 Juani Gagnon APRN Attending Provider Active Start: July 17, 2024 End: July 17, 2024 Team Status: Active Member Role Status Dates Yaritza Lopez , [employer] Primary Care Provider Active Start: November 04, 2024 Audie Truong MD Attending Provider Active Start : November 04, 2024 Team Status: Inactive Member Role Status Dates Yaritza Lopez , [employer] Primary Care Provider Active Start: November 12, 2024 End: November 12, 2024 Audie Truong MD Attending Provider Active Start : November 12, 2024 End: November 12, 2024 INFORMATION SOURCE (unrecogn ized section and content) DATE CREATED AUTHOR [facility]/24/2022 [facility] DATE CREATED AUTHOR AUTHOR'S LINDAIZ ATION 09/05/2022 [facility] [facility] Goals [...] BE BASED ON THE PRIMARY CLINICAL RECORDS. [facility] [employer] provides no warranty or guarantee of the accuracy or completeness of information in this document.
[2024-11-24 16:14] LABS: Hematocrit 37.1 % (36.0-48.0); Hemoglobin 11.7 g/dL (12.0-16.0); Mean Corpuscular HGB Conc 31.5 g/dL (29.9-35.2); Mean Corpuscular Hemoglobin 27.7 pg (26.7-34.0); Mean Corpuscular Volume 87.7 fL (81.0-99.0); Platelet Count 105 10^3/uL (150-450); Red Blood Count 4.23 10^6/uL (4.20-5.40); Reticulocyte Pct Auto 1.40 % (0.60-3.10); White Blood Count 7.5 10^3/uL (4.0-11.0)
[2024-11-24 16:48] LABS: Basophils Abs Manual 0.00 10^3/uL (0.00-0.10); Basophils Percent Manual 0.0 % (0.2-2.0); Eosinophils Absolute Manual 0.07 10^3/uL (0.00-0.70); Eosinophils Percent Manual 1.0 % (0.9-7.0); Lymphocytes Absolute Manual 2.10 10^3/uL (1.20-3.80); Lymphocytes Percent Manual 28.0 % (20.5-60.0); Monocytes Absolute Manual 0.30 10^3/uL (0.30-0.80); Monocytes Percent Manual 4.0 % (1.7-12.0); Segmented Neut Absolute Manual 5.02 10^3/uL (1.4-6.5); Segmented Neutrophils % Manual 67.0 (43.0-75.0)
[2024-11-26 04:07] LABS: Vitamin B12 695 pg/mL (232-1245)
[2024-11-27 14:08] LABS: Albumin 3.5 g/dL (2.9-4.4); Alpha-1-Globulin 0.3 g/dL (0.0-0.4); Alpha-2-Globulin 0.9 g/dL (0.4-1.0); Free Kappa Lt Chains,S 13.9 mg/L (3.3-19.4); Free Lambda Lt Chains,S 12.0 mg/L (5.7-26.3); Gamma Globulin 0.6 g/dL (0.4-1.8); Immunoglobulin A, Qn, Serum 1925 mg/dL (64-422); Kappa/Lambda Ratio,S 1.16 (0.26-1.65)
== END 2024-12-20 23:59 | disposition home or self-care (01) ==
LOC: HEMC 08:53
PROVIDERS: PCP Nurse Practitioner Family; Visit Provider Internal Medicine Hematology & Oncology
DX: D69.6 Thrombocytopenia, unspecified (principal); N18.9 Chronic kidney disease, unspecified; D64.9 Anemia, unspecified; D50.9 Iron deficiency anemia, unspecified; G62.89 Other specified polyneuropathies; Z90.710 Acquired absence of both cervix and uterus; Z90.49 Acquired absence of other specified parts of digestive tract
CPT/HCPCS: 36415; 82607; 82784; 83521; 83615; 84155; 84165; 85007; 85027; 85045; 86334; G0463

== ENCOUNTER 2024-12-28 14:21 | Outpatient (OUT) | payer MEDICARE, SELFPAY ==
--- OUTSIDE RECORDS SUMMARY | 2024-11-24 09:45 | XMS_ITS ---
Author Organization [facility] [place] Address [address] [place] [address] Care Team Providers Care Newspaper Stuffer Name Role Phone Yaritza Osorio Primary Care Provider Yi Durham Unavailable [phone] REASON FOR VISIT MD Encounters Encounter Location Date Provider Diagnosis [facility] [address] [place] [address] 11/24/2024 Yi Durham Plan Of Treatment Next Appt Details Provider Name:Yi Durham , 01/12/2025 09:00:00 AM, [address] [place], [address], Provider Name:Yaritza jones, 03/04/2025 10:00:00 AM, [address] [place], [address], Progress Notes * Peg BURROUGHS ADOB:[birth year] (74 yo F)Acc No.[id number]:11/24/2024 UNLOCKED PROGRESS NOTE Progress Notes Patient: Zakia Peg GONZALEZ Provider: Gee Durham M.D. :1950 A ge:74 Y S ex:Female Date:11/24/2024 Address:[address] [place] [address] [address], [facility] Pcp:Yaritza Osorio Subjective: * Chief Complaints: * 1 . MD. * Medical History: Objective: * Vitals: Assessment: Plan: * Treatment: * * Electronic signature of Bart Durham MD, [id number] on 12/28/2024 at 02:25 PM EDT Sign off status: Pending Visit Status: C ANC (Cancelled) * Provider: Gee Durham M.D. Date: 0 11/24/2024 Generated for Janet mackey/Donna/Gerardosmitting on: 0 12/28/2024 02:25 PM EDT
--- OUTSIDE RECORDS SUMMARY | 2024-11-30 09:34 | XMS_ITS ---
Author Organization [facility] [place] Address [address] [place] [address] Care Team Providers Care Thin Film Technician Name Role Phone Yaritza Osorio Primary Care Provider Aysuh Ledbetter [phone] REASON FOR VISIT Letter/Appointment Encounters Encounter Location Date Provider Diagnosis [facility] [place] [address] [place] [address] 11/30/2024 Ayush Ledbetter Plan Of Treatment Next Appt Details Provider Name:Yi Durham , 01/12/2025 09:00:00 AM, [address] [place], [address], Provider Name:Yaritza jones, 03/04/2025 10:00:00 AM, [address] [place], [address], Progress Notes * Peg BURROUGHS ADOB:[birth year] (74 yo F)Acc No.[id number]:11/30/2024 Patient: Zakia Peg GONZALEZ :1950 A ge:74 Y S ex:Female Address:[address], [address], [place] [address] * true * Date: Generated for Printi ng/Faxing/eTransmitting on: 0 12/28/2024 02:24 PM EDT
--- OUTSIDE RECORDS SUMMARY | 2024-12-08 06:45 | XMS_ITS ---
Author Organization The [facility] in [place] Address [address] [place] [address] Care Team Providers Care Sorting Machine Operator Name Role Phone Yaritza Osorio Primary Care Provider [phone] Yi Durham Unavailable [phone] REASON FOR VISIT MD Encounters Encounter Location Date Provider Diagnosis [facility] [address] [place] [address] 12/08/2024 Yi Durham Plan Of Treatment Next Appt Details Provider Name:Yi Durham , 01/12/2025 09:00:00 AM, [address] [place], [address], Provider Name:Yaritza jones, 03/04/2025 10:00:00 AM, [address] [place], [address], Progress Notes * Peg BURROUGHS ADOB:[birth year] (74 yo F)Acc No.[id number]:12/08/2024 UNLOCKED PROGRESS NOTE Progress Notes Patient: Zakia Peg GONZALEZ Provider: Gee Durham M.D. :1950 A ge:74 Y S ex:Female Date:12/08/2024 Address:[address] [place] [address] [address], [id number] Pcp:Yaritza Osorio Subjective: * Chief Complaints: * 1 . MD. * Medical History: Objective: * Vitals: Assessment: Plan: * Treatment: * * Electronic signature of Bart Durham MD, [id number] on 12/28/2024 at 02:24 PM EDT Sign off status: Pending Visit Status: C ONFSMS (Voice) * Provider: Gee Durham M.D. Date: 0 12/08/2024 Generated for Janet mackey/Donna/eTransmitting on: 0 12/28/2024 02:24 PM EDT
--- OUTSIDE RECORDS SUMMARY | 2024-12-11 06:46 | XMS_ITS ---
Author Organization [facility] in [place] Address [address] [place] [address] Care Team Providers Care Agriculturist Name Role Phone Yaritza Osorio Primary Care Provider [phone] REASON FOR VISIT Tizanidine refill Medications Medication SIG (Take, Route, Fr equency, Duration) Notes Start Date End Date Status tiZANidine HCl 4 MG 1 tablet as needed O rally daily for 14 days 02/13/2023 Active Encounters Encounter Location Date Provider Diagnosis [facility] [address] [place] [address] 12/11/2024 Yaritza Osorio Pain in right arm M79.601 Assessments Encounter Date Diagnosis (ICD Code) Assessment Notes Treatment Notes Treatment Clinical Notes Section Notes 12/11/2024 Pain in right arm (ICD-10 - M79.601) Plan Of Treatment Medication Medication Name Sig Start Date Stop Date Notes tiZANidine HCl 4 MG 1 tablet as needed O rally daily for 14 days 02/13/2023 Next Appt Details Provider Name:Yi Durham , 01/12/2025 09:00:00 AM, [address] [place], [address], Provider Name:Yaritza jones, 03/04/2025 10:00:00 AM, [address] [place], [address], Progress Notes * Peg BURROUGHS ADOB:[birth year] (74 yo F)Acc No.[id number]:12/11/2024 Patient: Peg BLANCHARD Gee :1950 A ge:74 Y S ex:Female Address:[address] [place] [address] * Refills Refill tiZANidine HCl Tablet, 4 MG, Orally, 14 Tablet, 1 tablet as needed, daily, 14 days, Refills=1 * true * Date: Generated for Janet mackey/Donna/Gerardosmitting on: 0 12/28/2024 02:24 PM EDT
--- OUTSIDE RECORDS SUMMARY | 2024-12-23 06:00 | XMS_ITS ---
Author Organization The [facility] in [place] Address [address] [place] [address] Care Team Providers Care Metal Reclamation Kettle Tender Name Role Phone Yaritza Oosrio Primary Care Provider [phone] Ayush Ledbetter Unavailable [phone] REASON FOR VISIT 1 Year F/U Pulmonary Nodules Encounters Encounter Location Date Provider Diagnosis Pulmonary [facility] [place] [address] [place] [address] 12/23/2024 Ayush Ledbetter Plan Of Treatment Next Appt Details Provider Name:Yi Durham , 01/12/2025 09:00:00 AM, [address] [place], [address], Provider Name:Yaritza jones, 03/04/2025 10:00:00 AM, [address] [place], [address], Progress Notes * Peg BURROUGHS ADOB:[birth year] (74 yo F)Acc No.[id number]:12/23/2024 UNLOCKED PROGRESS NOTE Follow Up Patient: Peg BLANCHARD Provider: Berny Ledbetter DO :1950 A ge:74 Y S ex:Female Date:12/23/2024 Address:[address] [place] [address], [address], [id number] Pcp:Yaritza Osorio Subjective: * Chief Complaints: * 1 . 1 Year F/U Pulmonary Nodules. * Medical History: Objective: * Vitals: Assessment: Plan: * Treatment: * * Electronic signature of Spring Ledbetter DO on 12/28/2024 at 02:24 PM EDT Sign off status: Pending Visit Status: O FF CANC (OFFICE CANCEL) * Provider: Berny Ledbetter DO Date: 12/23/2024 Generated for Janet mackey/Donna/Neenaitting on: 12/28/2024 02:24 PM EDT
--- OUTSIDE RECORDS SUMMARY | 2024-12-23 07:15 | XMS_ITS ---
Author Organization [facility] Address [address] [place] [address] Care Team Providers Care Cage Unloader Name Role Phone Carlos Mina Primary Care Provider Beverly [facility] [phone] REASON FOR VISIT Not Feeling Well Encounters Encounter Location Date Provider Diagnosis [address] [facility] [place] [address] [place] [address] 12/23/2024 Beverly Connolly Plan Of Treatment No Information Progress Notes * Peg BURROUGHS ADOB:[birth year] (74 yo F)Acc No.[id number]:12/23/2024 Progress Notes Patient: Zakia SOUMYATITI Peg Flynn Provider: BEATRIS Yeh :1950 A ge:74 Y S ex:Female Date:12/23/2024 External Visit ID:[id number] Address:[address] [place] [address], [place] [address], [id number] Pcp:Carlos Mina Subjective: * Chief Complaints: * 1 . Not Feeling Well. * Medical History: Objective: * Vitals: Assessment: Plan: * Treatment: * Billing Information: * Visit Code: * Procedure Codes: Care Plan Details* * Electronic signature of Amy Connolly APRN on 12/28/2024 at 01:25 PM CDT Sign off status: Pending * Provider: BEATRIS Yeh Date: 12/23/2024 Generated for Janet mackey/Donna/eTransmitting on: 12/28/2024 01:25 PM CDT
--- OUTSIDE RECORDS SUMMARY | 2024-12-24 07:25 | XMS_ITS | Continuity of Care Document ---
Author Organization [facility] Address [address] [place] [address] Phone Care Team Providers Care Working Foreman Name Role Phone Yaritza Osorio NP-C Primary Care Provider Bryan Benjamin Attending Provider Yi Durham MD Attending Provider [phone] Care Teams Patient Care Team Team Status: Active Member Role Status Dates Yaritza Osorio NP-C Primary Care Provider Active Visit Care Team Team Status: Active Member Role Status Dates Yaritza Osorio NP-C Primary Care Provider Active Start: November 04, 2024 Audie Benjamin MD Attending Provider Active Start : November 04, 2024 Visit Care Team Team Status: Inactive Member Role Status Dates Yaritza Osorio NP-Greta Primary Care Provider Active Start: November 12, 2024 End: November 12, 2024 Audie Benjamin MD Attending Provider Active Start : November 12, 2024 End: November 12, 2024 Patient Care Team Team Status: Inactive Member Role Status Dates Yaritza Osorio NP-Greta Primary Care Provider Active Start: December 24, 2024 End: December 24, 2024 Yi Durham MD Attending Provider Active St art: December 24, 2024 End: December 24, 2024 Chief Complaint and Reason for Visit Chief Complaint Admit Date RENAL 6 MONTH F/U November 12, 2024 11:0 0am D69.6 G62.89 D64.9 D50.9 N18.9 C90.00 Se ptember 2024 8:43am Reason for Visit Admit Date Anemia of [...] 11:00am Thrombocytopenia November 12, 2024 11:0 0am Allergies, Adverse Reactions, Alerts Allergen Type Severity Reaction Last Updated Verified Status No Known Allergies Allergy Unknown Septem 2024 9:17am Yes Active Social History Smoking Status Status Start Date End Date Date of Observa tion Never smoked tobacco (finding) December 24, 2024 9:30am Observation Status Observation Response Date of Response [...] Adherence Magnesium Oxide 400 mg magnesium capsule Discont inued 400 MG PO Daily 90 November 11, 2023 12:00a m Lolita ognzalez 2024 9:19a m Levothyroxi ne 150 mcg tablet Active 150 [...] Daily October 19, 2023 12:00a m 2024 11:04 am FreeTextSi Tablet orally daily; Note: Source Status: Taking; Provider: Cassidy Bronson ( ) Calcium Carbonate (Calcium 600) 600 mg calcium (1,500 mg) tablet Discont inued 1200 MG PO Daily October 19, 2023 12:00a m Aprua ry 2024 11:53 am Cholecalcif lily (Vitamin D3) 50 mcg (2,000 unit) capsule Active 50 MCG PO Daily October 19, 2023 12:00a m Complies with drug therapy Amoxicillin -Pot Clavulanate 875-125 mg tablet Discont inued 1 TAB PO Every 12 hours 20 10 October 19, 2023 12:00a m November 11, 2023 1:01p m Acetaminoph en 325 mg capsule Active 325 MG PO Every 6 hours as needed for pain 2024 1:00am Complies with drug therapy Multivitami n (Daily Multi-Vitam in) tablet Active 2 TAB PO Daily 2024 1:00am Complies with drug therapy Methylsulfo nylmethane (Msm) 1,000 mg capsule Active 1000 MG PO Daily 2024 1:00am Complies with drug therapy Fluticasone [...] Discont inued 1 TAB PO Twice daily 2024 1:00am July 17, 2024 5:46p m Fluticasone Propionate 50 mcg/actuati on spray,suspe nsion Active 2 SPRAY INTRAN MARICHUY Daily as needed for allergy symptoms 2024 11:53a m Complies with drug therapy Triamcinolo ne Acetonide 0.1 % ointment Active 1 APPLIC TOPICA L Twice daily as needed for yeast 2024 11:54a m Complies with drug therapy [...] 6 days Ondansetron 4 mg tablet,disi ntegrating Discont inued 4 MG PO Every 8 hours as needed for nausea and vomiting 6 July 22, 2024 12:00a m Septe mbtammi 2024 9:19a m Procedures Procedure Date Performed Status CT guided bone marrow bx/aspir December 24 8:48am active Relevant Diagnostic Tests and/or Laboratory Data Laboratory [...] 124 pg/mL Abnormal (applies to non-numeric results) Performed at: [address] [id number] Director: Rich Camejo PhD, Phone: [phone] Hematocr it November 04, 2024 7:55am November [...] 7:55am November 04, 2024 7:55am 13.5 % 25-[facility] Vitamin D Total November 04, 2024 7:55am November 04, 2024 7:55am 70.3 ng/mL <20 ng/mL Vit D [id number] -<30 ng/mL Vit D insufficien t30-100 ng/mL Vit D sufficient> 100 ng/mL Potential Toxicity Miscella neous Test November 04, 2024 7:55am November 04, 2024 7:55am COMMENT . Test Ordered: [id number] FerritinFer ritin 101 ng/mL Reference Range: 15-150Perfo rmed at: [address] [id number] Director: Rich Camejo PhD, Phone: [phone] Urine Protein/ Creatini ne Ratio November 04, [...] 3/uL 4.0-11.0 Estimate d GFR (Non-Afr ican Turkmen November 04, 2024 7:55am November 04, 2024 [...] 2024 7:47am 0-2 #/HPF 0-2 Urine Specific [place] November 04, 2024 7:47am 1.025 1.005-1.02 5 Urine Squamous Epitheli al Cells November 04, 2024 7:47am FEW #/LPF Abnormal (applies to non-numeric results) NONE/RARE Urine Urobilin ogen November 04, 2024 7:47am 0.2 EU/dL 0.2-1.0 Urine WBC November 04, 2024 7:47am 0-2 #/HPF Abnormal (applies to non-numeric results) NONE SEEN Correcte d White Blood Count December 24, 2024 9:04am December 24, 2024 9:12am 7.7 10*3/uL 3.8-11.6 [facility] [id number] [address] [facility] [address] Uncorrec milagros WBC Count December 24, 2024 9:04am December 24, 2024 9:12am 7.7 10*3/uL 3.8-11.6 [facility] [id number] [address] [facility] [address] Red Blood Count December 24, 2024 9:04am December 24, 2024 9:12am 4.43 10*6/uL 3.60-5.00 [facility] [id number] [address] [facility] [address] Hemoglob in December 24, 2024 9:04am December 24, 2024 9:12am 12.1 g/dL 11.8-15.4 [facility] [id number] [address] [facility] [address] Hematocr it December 24, 2024 9:04am December 24, 2024 9:12am 37.2 % 34.0-46.4 [facility] [id number] [address] [facility] [address] Mean Corpuscu lar Volume December 24, 2024 9:04am December 24, 2024 9:12am 83.8 fL 80-100 [facility] [id number] [address] [facility] [address] Mean Corpuscu lar Hemoglob in December 24, 2024 9:04am December 24, 2024 9:12am 27.2 pg 24.7-34.3 [facility] [id number] [address] [facility] [address] Mean Corpuscu lar Hemoglob in Concent December 24, 2024 9:04am December 24, 2024 9:12am 32.4 g/dL 32.0-35.0 [facility] [id number] [address] [facility] [address] Red Cell Distribu tion Width December 24, 2024 9:04am December 24, 2024 9:12am 14.7 % 11.9-15.3 [facility] [id number] [address] [facility] [address] Platelet Count December 24, 2024 9:04am December 24, 2024 9:12am 118 10*3/uL Below low normal 150-450 [facility] [id number] [address] [facility] [address] Mean Platelet Volume December 24, 2024 9:04am December 24, 2024 9:12am 10.3 fL 6.3-10.7 [facility] [id number] [address] [facility] [address] Neutroph ils (%) (Auto) December 24, 2024 9:04am December 24, 2024 9:12am 64.2 % . [facility] [id number] [address] [facility] [address] Lymphocy lidia (%) (Auto) December 24, 2024 9:04am December 24, 2024 9:12am 23.8 % . [facility] [id number] [address] [facility] [address] Monocyte s (%) (Auto) December 24, 2024 9:04am December 24, 2024 9:12am 8.3 % . [facility] [id number] [address] [facility] [address] Eosinoph ils (%) (Auto) December 24, 2024 9:04am December 24, 2024 9:12am 2.5 % . [facility] [id number] [address] [place] [id number] Basophil s (%) (Auto) December 24, 2024 9:04am December 24, 2024 9:12am 1.2 % . [facility] [id number] [address] [place], [place] [address] Nucleate d RBC Relative Count (auto) December 24, 2024 9:04am December 24, 2024 9:12am 0.1 /100{WBC} 0-0.5 [facility] [id number] [address] [place], [place] [id number] Neutroph ils # (Auto) December 24, 2024 9:04am December 24, 2024 9:12am 5.0 10*3/uL 1.8-7.7 [facility] [id number] [address] [place], [place] [id number] Lymphocy lidia # (Auto) December 24, 2024 9:04am December 24, 2024 9:12am 1.8 10*3/uL 1.00-4.8 [facility] [id number] [address] [place], [place] [id number] Monocyte s # (Auto) December 24, 2024 9:04am December 24, 2024 9:12am 0.6 10*3/uL 0.0-0.8 [facility] [id number] [address] [place] [address] Eosinoph ils # (Auto) December 24, 2024 9:04am December 24, 2024 9:12am 0.2 10*3/uL 0.0-0.45 [facility] [id number] [address] [place], [place] [id number] Basophil s # (Auto) December 24, 2024 9:04am December 24, 2024 9:12am 0.1 10*3/uL 0.0-0.2 [facility] [id number] [address] [place], [place] [id number] Prothrom bin Time December 24, 2024 9:04am December 24, 2024 9:38am 11.4 s 9.0-12.9 A hematocrit value greater than 55% may lead to inaccurate results in coagulation testing. Patients having hematocrit values >55% require a special collection tube for coagulation studies. Please contact the laboratory at for redraw instruction s. [facility] [id number] [address] [place] [address] Prothrom b Time Internat ional Ratio December 24, 2024 9:04am December 24, 2024 9:38am 1.0 INR Therapeutic Range A) Pre- and Peroperativ e OAT started two weeks before surgery. NOT HIP SURGERY: 1.5 - 2.5 HIP SURGERY: 2 - 3B) Primary and secondary prevention of venous THROMBOSIS: 2 - 3C) Active venous thrombosis, pulmonary embolismand prevention of recurrent venous thrombosis: 2 - 3D) Prevention of arterial thromboembo lismincludi ng patients with mechanical heart valves: 3 - 4.5 [facility] [id number] 1[address] [facility] [address] Activate d Partial Thrombop last Time December 24, 2024 9:04am December 24, 2024 9:38am 29.8 s 25.1-36.5 A hematocrit value greater than 55% may lead to inaccurate results in coagulation testing. Patients having hematocrit values >55% require a special collection tube for coagulation studies. Please contact the laboratory at for redraw instruction s. [facility] [id number] [address] [place] [address] Vital Signs Vital Reading Result Reference Range Collection Date/Time Height 64 [in_i] November 12, 2024 11:02am Weight 80.00 kg November 12, 2024 11:02am Body Temperature 97.1 [degF] 97.6-99.0 November 12, 2024 11:02am Heart Rate 93 /min 60-100 November 12, 2024 11:02am Respiratory rate 18 /min 12-November 12, 2024 11:02am Oxygen saturation by Pulse oximetry 98 % 95-100 November 12, 2024 11:0 2am BP Systolic 135 mm[Hg] 100-140 November 12, 2024 11:02am BP Diastolic 92 mm[Hg] 60-100 November 12, 2024 11:02am BMI (Body Mass Index) 30.2 kg/m2 October 212024 11:02am Height 64 [in_i] December 24, 2024 9:21am Weight 78.01 kg December 24, 2024 9:21am Heart Rate 92 /min 60-100 December 24, 2024 11:23am Respiratory rate 18 /min 12-24 December 242024 11:23am Oxygen saturation by Pulse oximetry 98 % 95-100 December 24, 2024 11:23am BP Systolic 133 mm[Hg] 100-140 December 24, 2024 11:23am BP Diastolic 98 mm[Hg] 60-100 December 24, 2024 11:23am Advance Directives Advance Directive Response Recorded Date/ Time Advance Directives No November 16 4:06pm Insurance Providers Guarantor Peg Burroughs Address [address] [address] Contact Info. Home Phone: Payer Policy Id Subscriber's Name Subscriber Id Effectiv e Date Expiration Date [facility] [place] [id number] Jose Burroughs , P [id number] Encounters Encounter Location(s) Arrival/Admit Date Discharge/Depart Date Provider(s) Non-patient / Non-visit -[facility] November 04, 2024 7:47am Audie Benjamin MD Departed Physician/Prov ider Office Visit -[facility] [place] November 12, 2024 11:00am November 12, 2024 11:26am Audie Benjamin MD Departed Surgical Day Care -CT Scan [facility] [place] December 24, 2024 8:43am December 24, 2024 11:24am Yi Durham MD Recent Diagnosis Onset Date Admit Date [...] November 12, 2024 11:00am Secondary hyperparathyroidism Unknown 2024 11:00am Thrombocytopenia Unknown November 12, 2024 [...] 11:00am Plan of Treatment Author Audie Benjamin [facility] Authored November 13, 2024 11:2 6am She has CKD 3 likely due to longstanding hypertension. Her serum [...] Tests Test Name Ordered Date Scheduled Date Bone Marrow Pathology December 24, 2024 9:15am Renal Function Panel November 12, 2024 11:21am 6 M [facility] Future Visits Future appointment information is unavailable Referrals to Other Providers Referral information is unavailable Future Procedures Procedure Name Ordered Date Scheduled Date Bone Marrow Path for Lab Kwaku December 24 9:16am December 24, 2024 9:15am CT guided bone marrow bx/aspir December 24 8:49am December 24, 2024 8:48am Discharge Order December 24, 2024 11:11am Sept ember 2024 11:11am Dipstick and Microscopic November 12, 2024 11:21am [...] Future medication information is unavailable Patient Instructions Instruction Admit Date [facility] Bone Marrow Aspira tion or Biopsy Know your Meds December 24, 2024 8:43am
--- OUTSIDE RECORDS SUMMARY | 2024-12-28 14:25 | XMS_ITS | Patient Health Record ---
Author Organization [facility] in [place] Address [address] [place] [address] Care Team Providers Care Change Management Coordinator Name Role Phone Yaritza Osorio Primary Care Provider [phone] MarvaLarryYi Unavailable [phone] SamAyush goodman Unavailable [phone] Allergies No Known Allergies Results Component Value Reference Range Notes MM tomosynthesis screening B I Reviewed date:03/05/2024 02:31:09 PM Interpretation: Performing Lab: Notes/Report: Source Facility: [place] [address] Mammography Report Signed Patient: PEG BURROUGHS MR#: [id number] : 1950 Acct:[id number] Age/Sex: 73 / F ADM Date: 03/04/24 Loc: MAMMO Attending Dr: YARITZA OSORIO Ordering Physician: YARITZA OSORIO Results: Date of Service: 03/04/24 Follow Up: Procedure(s): MM tomosynthesis screening BI Accession Number(s): [id number] cc: YARITZA OSORIO Patient Name: PEG BURROUGHS MR#: [id number] : 1950 Exam Date: 03/04/2024 Ordering Doctor: YARITZA OSORIO PRINCIPAL SOFTWARE ARCHITECT RADIOLOGY REPORT PROCEDURE: MM TOMOSYNTHESIS SCREENING BI COMPARISON: MG MAMM SCREEN 3D KUN CAD, 09/06/2022. MG MAMM SCREEN 3D KUN CAD, 09/04/2021. INDICATIONS: Screening for malignant neoplasm Calculator Name NCI Breast Cancer Risk Assessment Tool 5 Year Breast Cancer Risk 1.60% Lifetime Breast Cancer Risk 4.30% Personal Breast Cancer No Personal Ovarian Cancer No Treatments None Family Cancers None LOCATION: [facility] BREAST COMPOSITION: There are scattered areas [...] Dictated By: Jose Hudson M.D. Signed By: 03/04/24 1053 DD/ 105 TD/TT: Disability Attorney: [place] [address] Mammography Report Signed Patient: PEG BURROUGHS MR#: [id number] : 1950 Acct:[id number] Age/Sex: 73 / F ADM Date: 03/04/24 Loc: MAMMO Attending Dr: YARITZA OSORIO Ordering Physician: YARITZA OSORIO Results: Date of Service: 03/04/24 Follow Up: Procedure(s): MM tomosynthesis screening BI Accession Number(s): [id number] cc: YARITZA OSORIO Patient Name: PEG BURROUGHS MR#: [id number] : 1950 Exam Date: 03/04/2024 Ordering Doctor: YARITZA OSORIO [facility] RADIOLOGY REPORT PROCEDURE: MM TOMOSYNTHESIS SCREENING BI [...] Treatments None Family Cancers None LOCATION: [facility] BREAST COMPOSITION: There are scattered areas of [...] Dictated By: Jose Hudson M.D. Signed By: 03/04/24 1053 DD/ 1052 TD/TT: Disability Attorney: [employer] Reviewed date:05/05/2024 12:46:20 PM Interpretation: Performing Lab: Notes/Report: [facility] [place] , Iron 40.0 50.0-170.0 ug/dL Total Iron Binding Capacity 242.0 250.0-450.0 ug/dL Percent Iron Saturation 16.5 Performing Lab: see note ML - [facility] LB MAGNESIUM Reviewed date:05/05/2024 12:46:20 PM Interpretation: Performing Lab: Notes/Report: [facility] , Magnesium 2.0 1.8-2.4 mg/dL Performing Lab: see note ML - [facility] LB RENAL FUNCTION PANEL Reviewed date:05/05/2024 12:46:20 PM Interpretation: Performing Lab: Notes/Report: [facility] , Sodium 143 136-145 mmol/L Potassium [...] g/dL Performing Lab: see note ML - [facility] URIC ACID SERUM Reviewed date:05/05/2024 12:46:20 PM Interpretation: Performing Lab: Notes/Report: [facility] , Uric Acid 5.1 2.6-6.0 mg/dL Performing Lab: see note ML - [facility] URINE T PROTEIN CREAT RATIO Reviewed date:05/05/2024 12:46:20 PM Interpretation: Performing Lab: Notes/Report: [facility] , Total Protein Urine Random 38.9 <=11.9 mg/dL Creatinine Urine Random 232.52 20.00-30 0.00 mg/dL Protein Creatinine Ratio Urine 0.17 Performing Lab: see note - [facility] PTH, Intact Reviewed date:05/06/2024 11:54:37 AM Interpretation: Performing Lab: Notes/Report: [facility] , PTH, Intact 90 15-65 pg/mL Performed at: [facility] [address] [id number] Irrigation Tax Assessor Collector: Rich Camejo PhD, Phone: [phone] Performing Lab: see note - [facility] LB GLYCOHEMOGLOBIN A1C Reviewed date:09/07/2024 04:23:17 PM Interpretation: Performing Lab: Notes/Report: [facility] , Glycohemoglobin A1C 6.3 4.5-6.2 % ADA RECOMMENDED LIMIT 4.0 - 6.0 ADA THERAPEUTIC TARGET < 7.0 ACTION SUGGESTED > 7.0 Estimated Average Glucose 134 Performing Lab: see note ML - [facility] IRON Reviewed date:09/07/2024 04:23:17 PM Interpretation: Performing Lab: Notes/Report: [facility] , Iron 51.0 50.0-170.0 ug/dL Performing Lab: see note - [facility] LB LAB TESTING Reviewed date:11/05/2024 02:21:34 PM Interpretation: Performing Lab: Notes/Report: [id number] Ferritin [facility] , Miscellaneous Test COMMENT . Test Ordered: [id number] Ferritin Ferritin 101 ng/mL Reference Range: 15-150 Performed at: [address] [id number] [employer]rr[employer] Tax Assessor Collector: Rich Camejo PhD, Phone: [phone] Performing Lab: see note [facility] UA RANDOM W or MICROSCOPIC Reviewed date:11/04/2024 10:42:37 AM Interpretation: Performing Lab: Notes/Report: [facility] , Color Urine YELLOW YELLOW Clarity Urine CLEAR CLEAR Specific [place] Urine 1.025 1.005-1.025 pH Urine 6.0 5.0-9.0 Protein Urine TRACE NEG/TRACE mg/dL Glucose Urine UA NEGATIVE NEGATIVE mg/dL Bilirubin Urine NEGATIVE NEGATIVE Ketones Urine NEGATIVE NEGATIVE mg/dL Blood Urine TRACE-I NEGATIVE Nitrite Urine NEGATIVE NEGATIVE Urobilinogen Urine 0.2 0.2-1.0 EU/dL Leukocyte Esterase Urine NEGATIVE NEGATIVE WBC Urine 0-2 NONE SEEN #/HPF RBC Urine 0-2 0-2 #/HPF Bacteria Urine NONE SEEN NONE SEEN #/HPF Mucus Urine NONE SEEN NONE SEEN Squamous Epithelial Cell Urine FEW NONE/RARE #/LPF Crystals Seen? None Seen None Seen #/HPF Cast Seen? NONE SEEN NONE SEEN #/LPF Performing Lab: see note [facility] PTH, Intact Reviewed date:11/05/2024 02:21:34 PM Interpretation: Performing Lab: Notes/Report: [facility] , PTH, Intact 124 15-65 pg/mL Performed at: [address] [id number] Irrigation Tax Assessor Collector: Rich Camejo PhD, Phone: [phone] Performing Lab: see note [facility] CBC AUTO DIFF (Not yet revie wed by provider) Interpretation: Performing Lab: Notes/Report: [facility] , White Blood Count 7.5 4.0-11.0 10 3/uL Red Blood Count 4.23 4.20-5.40 10 6/uL Hemoglobin 11.7 12.0-16.0 g/dL Hematocrit 37.1 36.0-48.0 % Mean Corpuscular Volume 87.7 81.0-99.0 fL Mean Corpuscular Hemoglobin 27.7 26.7-34.0 pg Mean Corpuscular HGB Conc 31.5 29.9-35.2 g/dL Red Cell Distribution Width 13.9 11.0-15.0 % Platelet Count 105 150-450 10 3/uL Mean Platelet Volume 13.3 9.5-13.5 fL Performing Lab: see note - [facility] LB LDH (Not yet reviewed by pro vider) Interpretation: Performing Lab: Notes/Report: [facility] , Lactate Dehydrogenase 162 81-234 U/L Performing Lab: see note ML - [facility] LB Manual Differential (Not yet reviewed by provider) Interpretation: Performing Lab: Notes/Report: [facility] , Segmented Neutrophils % Manual 67.0 43.0-75.0 Lymphocytes Percent Manual 28.0 20.5-60.0 % Monocytes Percent Manual 4.0 1.7-12.0 % Eosinophils Percent Manual 1.0 0.9-7.0 % Basophils Percent Manual 0.0 0.2-2.0 % Segmented Neut Absolute Manual 5.02 1.4-6.5 10 3/uL Lymphocytes Absolute Manual 2.10 1.20-3.80 10 3/uL Monocytes Absolute Manual 0.30 0.30-0.80 10 3/uL Eosinophils Absolute Manual 0.07 0.00-0.70 10 3/uL Basophils Abs Manual 0.00 0.00-0.10 10 3/uL Performing Lab: see note - [facility] LB Reticulocyte Pct Auto (Not y et reviewed by provider) Interpretation: Performing Lab: Notes/Report: [facility] , Reticulocyte Pct Auto 1.40 0.60-3.10 % Performing Lab: see note ML - [facility] LB RENA, PE and FLC, Serum (Not yet reviewed by provider) Interpretation: Performing Lab: Notes/Report: [facility] , Immunoglobulin G, Qn, Serum 988 669-0659 mg/dL Immunoglobulin A, Qn, Serum 1925 64-422 mg/dL Results confirmed on dilution. Immunoglobulin M, Qn, Serum 34 26-217 mg/dL Protein, Total 7.4 6.0-8.5 g/dL Albumin 3.5 2.9-4.4 g/dL Vngfq-8-Xxdbdcdn 0.3 0.0-0.4 g/dL Uzhus-9-Kllorhxy 0.9 0.4-1.0 g/dL Beta Globulin 2.1 0.7-1.3 g/dL Gamma Globulin 0.6 0.4-1.8 g/dL M-Troy Comment: Not Observed g/dL Monoclonal IgA lambda #1 = 1.2 g/dl Due to the small quantity of monoclonal IgA lambda #2, unable to quantitate the M-spike. Globulin, Total 3.9 2.2-3.9 g/dL A/G Ratio 0.9 0.7-1.7 Immunofixation Result, Serum Comment . Immunofixation shows a biclonal IgA protein with lambda specificity. Please note: Comment . Protein electrophoresis scan will follow via computer, mail, or oracle database consultant delivery. Free [place] Lt Chains,S 13.9 3.3-19.4 mg/L Free Lambda Lt Chains,S 12.0 5.7-26.3 mg/L [place]/Lambda Ratio,S 1.16 0.26-1.65 Performed at: - [facility] [address] [id number] Irr[employer] Tax Assessor Collector: Rich Camejo PhD, Phone: [phone] Performing Lab: see note - [facility] LB CBC no Diff (Hemogram) Reviewed date:11/04/2024 10:42:37 AM Interpretation: Performing Lab: Notes/Report: [facility] , White Blood Count 8.7 4.0-11.0 10 3/uL Red Blood Count 4.28 4.20-5.40 10 6/uL Hemoglobin 11.9 12.0-16.0 g/dL Hematocrit 37.6 36.0-48.0 % Mean Corpuscular Volume 87.9 81.0-99.0 fL Mean Corpuscular Hemoglobin 27.8 26.7-34.0 pg Mean Corpuscular HGB Conc 31.6 29.9-35.2 g/dL Red Cell Distribution Width 14.4 11.0-15.0 % Platelet Count 118 150-450 10 3/uL Mean Platelet Volume 12.1 9.5-13.5 fL Performing Lab: see note - [facility] LB VITAMIN D 25 [place] Reviewed date:11/04/2024 10:42:37 AM Interpretation: Performing Lab: Notes/Report: [facility] , Vitamin D 70.3 <20 ng/mL Vit D deficient 20-<30 ng/mL Vit D insufficient 30-100 ng/mL Vit D sufficient >100 ng/mL Potential Toxicity Performing Lab: see note ML - [facility] LB URINE T PROTEIN CREAT RATIO Reviewed date:11/04/2024 10:42:37 AM Interpretation: Performing Lab: Notes/Report: [facility] , Total Protein Urine Random 40.1 <=11.9 mg/dL Creatinine Urine Random 288.44 20.00-30 0.00 mg/dL Protein Creatinine Ratio Urine 0.14 Performing Lab: see note ML - [facility] LB URIC ACID SERUM Reviewed date:11/04/2024 10:42:37 AM Interpretation: Performing Lab: Notes/Report: [facility] , Uric Acid 5.3 2.6-6.0 mg/dL Performing Lab: see note - [facility] RENAL FUNCTION PANEL Reviewed date:11/04/2024 10:42:37 AM Interpretation: Performing Lab: Notes/Report: [facility] , Sodium 143 136-145 mmol/L Potassium 4.0 3.5-5.1 mmol/L Chloride 106 98-107 mmol/L Carbon Dioxide 24.8 21.0-32.0 mmol/L Anion Gap 16.2 Glucose 107 74-106 mg/dL Blood Urea Nitrogen 20.0 7.0-18.0 mg/dL Creatinine 1.45 0.55-1.02 mg/dL Estimated GFR ( [place]ana 43 >=60 mL/min/1.73m 2 Estimated GFR (Non- [place]ury 35 >=60 mL/min/1.73m 2 BUN Creatinine Ratio 13.8 Calcium 8.2 8.5-10.1 mg/dL Phosphorus 2.5 2.6-4.7 mg/dL Albumin Level 3.1 3.4-5.0 g/dL Performing Lab: see note ML - [facility] LB MAGNESIUM Reviewed date:11/04/2024 10:42:37 AM Interpretation: Performing Lab: Notes/Report: [facility] , Magnesium 1.9 1.8-2.4 mg/dL Performing Lab: see note - [facility] LB IRON AND TIBC Reviewed date:11/04/2024 10:42:37 AM Interpretation: Performing Lab: Notes/Report: [facility] , Iron 38.0 50.0-170.0 ug/dL Total Iron Binding Capacity 281.0 250.0-450.0 ug/dL Percent Iron Saturation 13.5 Performing Lab: see note ML - [facility] LB CBC AUTO DIFF Reviewed date:10/02/2024 12:20:24 PM Interpretation: Performing Lab: Notes/Report: [facility] , White Blood Count 8.0 4.0-11.0 [...] 3/uL Performing Lab: see note ML - [facility] LB VITAMIN D 25 [place] Reviewed date:09/07/2024 04:23:17 PM Interpretation: Performing Lab: Notes/Report: [facility] , Vitamin D 66.8 <20 ng/mL Vit D deficient 20-<30 ng/mL Vit D insufficient 30-100 ng/mL Vit D sufficient >100 ng/mL Potential Toxicity Performing Lab: see note ML - [facility] LB TSH Reviewed date:09/07/2024 04:23:17 PM Interpretation: Performing Lab: Notes/Report: [facility] , Thyroid Stimulating Hormone 0.618 0.358-3.740 uIU/mL Performing Lab: see note ML - [facility] LB T4 Reviewed date:09/07/2024 04:23:17 PM Interpretation: Performing Lab: Notes/Report: [facility] , T4 Thyroxine 10.80 4.80-13.90 ug/dL Performing Lab: see note ML - [facility] PROF 14(COMP METB) Reviewed date:09/07/2024 04:23:17 PM Interpretation: Performing Lab: Notes/Report: [facility] , Sodium 140 136-145 mmol/L Potassium [...] 0.6 Performing Lab: see note ML - [facility] LB LIPID PROFILE Reviewed date:09/07/2024 04:23:17 PM Interpretation: Performing Lab: Notes/Report: [facility] , Triglycerides 212 <=150 mg/dL Cholesterol [...] >11.0 HIGH RISK Performing Lab: see note - [facility] LB INSULIN Reviewed date:09/08/2024 10:59:32 AM Interpretation: Performing Lab: Notes/Report: [facility] , Insulin 23.6 2.6-24.9 uIU/mL Performed at: [address] [id number] Irrigation Tax Assessor Collector: Rich Camejo PhD, Phone: [phone] Performing Lab: see note [facility] FREE T3 Reviewed date:09/07/2024 04:23:17 PM Interpretation: Performing Lab: Notes/Report: [facility] , Free T3 2.38 2.18-3.98 pg/mL Performing Lab: see note - [facility] LB CBC AUTO DIFF Reviewed date:09/07/2024 04:23:17 PM Interpretation: Performing Lab: Notes/Report: [facility] , White Blood Count 8.1 4.0-11.0 [...] 3/uL Performing Lab: see note ML - [facility] LB CBC no Diff (Hemogram) Reviewed date:05/05/2024 12:46:20 PM Interpretation: Performing Lab: Notes/Report: [facility] , White Blood Count 6.7 4.0-11.0 [...] 9.5-13.5 fL Performing Lab: see note - [facility] LB VITAMIN D 25 [place] Reviewed date:05/05/2024 12:46:20 PM Interpretation: Performing Lab: Notes/Report: [facility] , Vitamin D 76.3 <20 ng/mL Vit D deficient 20-<30 ng/mL Vit D insufficient 30-100 ng/mL Vit D sufficient >100 ng/mL Potential Toxicity Performing Lab: see note - [facility] LB UA RANDOM W or MICROSCOPIC Reviewed date:05/05/2024 12:46:20 PM Interpretation: Performing Lab: Notes/Report: [facility] , Color Urine YELLOW YELLOW Clarity Urine CLEAR CLEAR Specific [place] Urine >=1.030 1.005-1.025 pH Urine 5.5 5.0-9.0 [...] #/LPF Performing Lab: see note ML - [facility] LB FERRITIN Reviewed date:05/05/2024 12:46:20 PM Interpretation: Performing Lab: Notes/Report: [facility] , Ferritin 93.0 8.0-252.0 ng/mL Performing Lab: see note ML - [facility] LB Vitamin B12 (Not yet reviewe d by provider) Interpretation: Performing Lab: Notes/Report: [facility] , Vitamin B12 956 270-1160 pg/mL Performed at: - [facility] [address] [id number] Irrigation Tax Assessor Collector: Rich Camejo PhD, Phone: [phone] Performing Lab: see note - [facility] LB Reason For Referral No Information Medications Medication SIG (Take, Route, Frequency, Duration) Notes Start Date End Date Status Alendronate Sodium 70 MG TAKE 1 TABLET B Y MOUTH ONCE A WEEK *WAIT 30 MINUTES BEFORE EATING AND STAY UPRIGHT FOR 30 MINUTES* for 84 Active Lovastatin 40 MG TAKE 1 TABLET BY YULISSA TH EVERY DAY AT BEDTIME for 90 Active buPROPion HCl ER (XL) 300 MG TAKE 1 TABLET BY MOUTH EVERY DAY for 90 Active Fluticasone Propionate 50 MCG/ACT USE 1 SPRAY IN EACH NOSTRIL TWICE A DAY for 90 Active Levothyroxine Sodium 150 MCG TAKE 1 TABLET BY MOUTH EVERY DAY IN THE MORNING ON AN EMPTY STOMACH FOR 30 DAYS for 90 days Active Ketoconazole 2 % 1 application Education And Outreach Coordinator ally Once a day for 14 days 03/05/2024 Active tiZANidine HCl 4 MG 1 tablet as needed O rally daily for 14 days 02/13/2023 Active Losartan Potassium 100 MG TAKE 1 TABLET BY MOUTH EVERY DAY for 90 Active Raloxifene HCl 60 MG TAKE 1 TABLET BY MO UTH EVERY DAY for 90 days Active Montelukast Sodium 10 MG TAKE 1 TABLET B Y MOUTH EVERYDAY AT BEDTIME Oral for 90 Days Active Omeprazole 40 MG TAKE 1 CAPSULE BY [facility] EVERY DAY for 90 Active Social History [...] Status Risk Notes Problem Shortness of breath (583106270) Shortness of breath (R06.02) Active confirmed Problem Hyperlipidemia (00883914) Hyperlipidemia (E78.5) Active confirmed Problem Hypertension (42693420) Hypertension (I10) Active confirmed Problem Chronic kidney disease (274008387) Chronic kidney disease (N18.9) Active confirmed Problem Anxiety (89154993) Anxiety (F41.9) Active confi rmed Problem Hypothyroid (60158068) Hypothyroid (E03.9) Active confirmed Problem Hyperglycemia (50033297) Hyperglycemia (R73.9) Active confirmed Problem Insomnia (515641245) Insomnia (G47.00) Active c onfirmed Problem Hiatal hernia (41877993) Hiatal hernia (K44.9) Active confirmed Problem Diverticular disease of colon (865530426) Diverticulosis (K57.90) Active confirmed Problem Colitis (37890409) Colitis (K52.9) Active confi rmed Problem Osteoporosis (75822352) Osteoporosis (M81.0) Active confirmed Problem Hyperparathyroidism (57668640) Hyperparathyroidism (E21.3) Active confirmed Problem Cholelithiasis (908779145) Cholelithiases (K80.20) Active confirmed Problem Prediabetes (964879232) Pre-diabetes (R73.09) Active confirmed Problem Seasonal allergy (975749580) Seasonal allergies (J30.2) Active confirmed Problem Thrombocytopenia (431173323) Thrombocytopenia (D69.6) Active confirmed Problem Laboratory test result abnormal (131732905) Abnormal laboratory test (R89.9) Active confirmed Problem Allergic asthma (038465841) Allergic asthma (J45.909) Active confirmed Problem Mediastinal lymphadenopathy (99420113) Mediastinal lymphadenopathy (R59.0) Active confirmed Problem Multiple pulmonary nodules (145198117) Multiple pulmonary nodules (R91.8) Active confirmed Problem Decreased estrogen level (723157414) Estrogen deficiency (E28.39) Active confirmed Problem History of COVID-19 (394683736746524304) History of COVID-19 (Z86.16) Active confirmed Problem Peripheral eosinophilia (D72.19) Active confirmed Problem Low back pain (finding) (592391552) Low back pain at multiple sites (M54.50) Active confirmed Vital Signs Blood pressure diastolic 70 mm Hg 09/03/2024 Height 64 in 09/03/2024 Blood pressure systolic 134 mm Hg 09/03/2024 Weight 178 lbs 09/03/2024 BMI 30.55 kg/m2 09/03/2024 Encounters Encounter Location Date Provider Diagnosis [facility] [address] [place] [address] 09/10/2024 Yaritza Osorio Abnormal laboratory test R89.9 [facility] [address] [place] [address] 10/02/2024 Yaritza Osorio Abnormal laboratory test R89.9 [facility] [place] [address] [place] [address] 11/30/2024 Ayush Ledbetter [facility] [address] [place] [address] 12/11/2024 Yaritza Osorio Pain in right arm M79.601 [facility] [address] [place] [address] 03/05/2024 Yaritza Osorio [facility] [address] [place] [address] 03/05/2024 Yaritza Osorio Yeast dermatitis B37.2 and Yeast infection B37.9 [facility] [address] [place] [address] 09/03/2024 Yaritza Osorio Hypothyroid E03.9 [facility] [address] [place] [address] 11/24/2024 Yi Durham [facility] [address] [place] [address] 12/08/2024 Yi Durham Assessments Encounter Date Diagnosis (ICD Code) Assessment Notes Treatment Notes Treatment Clinical Notes Section Notes 03/05/2024 Yeast dermatitis (ICD-10 - B37.2) to abdominal fold 03/05/2024 Yeast infection (ICD-10 - B37.9) vaginal itching recent abx use 09/03/2024 Hypothyroid (ICD-10 - E03.9) continue med checking labs feels well 09/10/2024 Abnormal laboratory test (ICD-10 - R89.9) 10/02/2024 Abnormal laboratory test (ICD-10 - R89.9) 12/11/2024 Pain in right arm (ICD-10 - M79.601) Plan Of Treatment Pending Test Test Name [...] W/AUTO DIFF 09/10/2024 CBC W/AUTO DIFF 10/02/2024 CBC AUTO DIFF 11/24/2024 LDH 11/24/2024 XR DEXA BONE DENSITY 08/15/2023 THYROID PANEL (T4/TSH/FREE T3) 3 THYROID PANEL (T4/TSH/FREE T3) THYROID PANEL (T4/TSH/FREE T3) 4 Manual Differential 11/24/2024 RENA, PE and FLC, Serum 11/24/2024 Reticulocyte Pct Auto 11/24/2024 Vitamin B12 11/24/2024 CMP (COMP MET HERNANDEZ) w/eGFR CKD-EPI 2024 CBC WITH DIFF 09/03/2024 Future Test Test Name Order Date CT Chest w/o contrast 12/20/2024 Next Appt Details Provider Name:Yi Durham , 01/12/2025 09:00:00 AM, [address] [place], [address], Provider Name:Yaritza jones, 03/04/2025 10:00:00 AM, [address] [place], [address], Insurance Providers Payer Name Payer Address Payer Phone Subscriber Number Group Number Insured Name Patient Relationship to Insured Coverage Start Date Coverage End Date [employer] MEDICARE ADV PLAN [address] [address] [place] [address] [id number] Peg Burroughs Self - patient is the [...] 1973 Hospitalization History Reason Date(Month/Year) URI-[facility] [facility] ER-Vomiting 03/04/2023
--- OUTSIDE RECORDS SUMMARY | 2024-12-28 14:25 | XMS_ITS | Patient Health Record ---
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 Name Role Phone Carlos Mina Primary Care Provider Unavaildanielle nobles Vickie Herbert Unavailable LoaBeverly Unavailable [phone] Allergies No Known Allergies Reason For Referral [...] 6 months & older Unknown 03/16/2019 Refused z2019 Fluzone High Dose PFS (0.5mL Admin) 65 y/o & older IM Intramuscular 02/16/2019 Administered [id number] Quad High Dose PFS (0.7 mL Admin) [...] Problem Status W/U Status Risk Notes Problem Asthma without status asthmaticus (50739224) Asthma with bronchitis (J45.909) Active confirmed Finding BMI 25-29 - overweight (164047753) BMI 27.0-27.9,adult (Z68.27) Active confirmed Problem Hypertension (24553682) Hypertension (I10) Active confirmed Diagnosis Acute pansinusitis (1735168) Acute non-recurrent pansinusitis (J01.40) Active confirmed Diagnosis Acute non-suppurative otitis media - serous (242572187) Non-recurrent acute serous otitis media of both ears (H65.03) Active confirmed Problem Chronic sinusitis (31136762) Chronic sinusitis (J32.9) Active confirmed Problem Asthma (143337630) Asthma (J45.909) Active confirmed Problem Allergic rhinitis (40745582) Allergic rhinitis (J30.9) Active confirmed Problem Hypothyroid (33207911) Hypothyroid (E03.9) Active confirmed Problem Migraine (04496410) Migraine (G43.909) Active confirmed Problem Elevated blood pressure reading without diagnosis of hypertension (537764248) Elevated blood pressure reading in office without diagnosis of hypertension (R03.0) Active confirmed Problem Osteoporosis (02080280) Osteoporosis (M81.0) Active confirmed Problem Gastroesophageal reflux disease (753304663) GERD (gastroesophage al reflux disease) (K21.9) Active confirmed Problem Difficulty sleeping (239337770) Sleep difficulties (G47.9) Active confirmed Problem History of disease caused by Severe acute respiratory syndrome coronavirus 2 (situation) (620132083978053501 ) Personal history of covid-19 (Z86.16) Active confirmed Problem Obese class I (finding) (022521411090568) Obesity (BMI 30.0-34.9) (E66.9) Active confirmed Problem Overweight (594240813) Overweight (BMI 25.0-29.9) (E66.3) Active confirmed Vital Signs Temperature 98.2 degrees Fahrenheit 01/22/2024 Respiratory Rate 17 /min 01/22/2024 Blood pressure diastolic 64 mm Hg 01/22/2024 Height 064 in 01/22/2024 Blood pressure systolic 112 mm Hg 01/22/2024 Weight 174.6 lbs 01/22/2024 BMI 29.97 kg/m2 01/22/2024 Encounters Encounter Location Date Provider Diagnosis [address] [place] [address] 01/22/2024 Vickie Castro Acute non-recurrent pansinusitis J01.40 ; Non-recurrent acute serous otitis media of right ear H65.01 ; Overweight (BMI 25.0-29.9) E66.3 and Flu vaccine refused Z28.21 Assessments Encounter Date Diagnosis (ICD Code) Assessment Notes Treatment Notes Treatment Clinical Notes Section Notes 01/22/2024 Acute non-recurrent pansinusitis (ICD-10 - J01.40) [...] eating and exercise. May follow up with [facility] via a telehealth visit at [email or web address] [email or web address] to help with dietary changes to lower BMI. 01/22/2024 Flu vaccine refused (ICD-10 - Z28.21) 01/22/2024 Other Visit summary given to and discussed with patient and/or parent who verbalizes understanding and agreement with plan of care Thank you for your visit. Please look for the satisfaction survey that you will receive via email. We look forward to receiving your feedback regarding your experience at [facility]. Plan Of Treatment No Information Insurance Providers Payer Name Payer Address Payer Phone Subscriber Number Group Number Insured Name Patient Relationship to Insured Coverage Start Date Coverage End Date [facility] [address] [address] [place] [phone] [id number] Peg Burroughs Self - patient is the insured Medical (General) History Medical History History ICD Code Asthma J45.909 Allergic rhinitis J30.9 Hypertension I10 Hypothyroid E03.9 Migraine G43.909 Osteoporosis M81.0 GERD (gastroesophageal reflux disease) K 21.9 Sleep difficulties G47.9 Personal history of covid-19 Z86.16 Kidney disease N28.9 Surgical History Surgery Date(Month/Year) cyst removal Hysterectomy age 35 Hospitalization History Reason Date(Month/Year) COVID 02/2023 surgeries Stomach issues - secondary to out of cou n[place] travel 06/2018
--- NOTE | 2024-12-28 15:59 | PE_ITS ---
The [address] [address] Patient Name: KAREEN HADLEY MRN: [id number] date: 1950 Sex: F Assigned Patient Location: PETCT Current Patient Location: Accession/Order Number: [id number] Exam Date: 12/28/2024 14:50 Report Date: 12/29/2024 10:41 At the request of: СВЕТЛАНА HOLLEY MD Procedure: PET whole body PET/CT WITH FUSION CLINICAL DATA: Multiple myeloma COMPARISON: Chest CT 12/10/2023 Following the intravenous administration of 14.0 mCi of FDG, SPECT imaging in 3 planes was performed from the top of head to the feet. The patient's blood glucose level at the time of injection was 112 mg/dL. Spiral unenhanced CT was also performed for anatomic localization. The PET and CT images were fused. This CT exam was performed using one or more following dose reduction techniques: Automated exposure control, adjustment of the mA and/or kV according to patient size, or use of iterative reconstruction technique. HEAD/NECK: No obvious intracranial asymmetries are seen. No enlarged or hypermetabolic cervical lymph nodes are present. There is physiologic activity at the oral cavity, tonsils and vocal cords. CHEST: There are right paratracheal and subcarinal lymph nodes showing associated increase FDG uptake with standard uptake values of 5.5 and 8.4 respectively. The lungs show scarring or atelectasis. A right middle lobe nodule is again noted, without associated increased FDG uptake. There is no other hypermetabolic pulmonary nodularity. ABDOMEN/PELVIS: No hypermetabolic hepatic or adrenal lesions are identified. There are no enlarged or hypermetabolic abdominal or pelvic lymph nodes. There is physiologic activity involving the urinary tract and bowel. Cholelithiasis is present. There are renal cysts, larger on the right. Minor diverticular disease is seen. EXTREMITIES: There is subtle asymmetric increased FDG uptake at the posterior right iliac bone in comparison to the left. The SUV is 2.9. CT shows no associated bone lesion. No osteolytic lesions or additional areas of osseous uptake are seen elsewhere to suggest myeloma. There is minor degenerative joint disease with some associated increased FDG uptake, greatest at the shoulders. PET/PET whole body IMPRESSION: NONSPECIFIC MEDIASTINAL LYMPH NODES WITH INCREASED FDG UPTAKE. MILD ASYMMETRIC INCREASED UPTAKE AT THE RIGHT ILIAC BONE POSTERIORLY, WITHOUT ASSOCIATED CT ABNORMALITY. NO OTHER SIGNIFICANT PET SCAN FINDINGS. Impression dictated by: Alberta Hurst M.D. 12/29/2024 10:41 AM Dictation Location: [address] [address] Electronically authenticated by: [id number] Y Date: 12/29/2024 10:41
--- OUTSIDE RECORDS SUMMARY | 2024-12-28 16:53 | XMS_ITS | CCD ---
Author Organization [facility] CliniSysd Care Team Providers Care Mule Packer Name Role Phone Audie Truong Unavailable YARITZA PEPPER Primary Care Physician MD AUDIE TRUONG Referring Unavailable Iván TOMLIN Attending Unavailable KELLY, Iván Hsu Referring Unavailable Iván TOMLIN Attending Unavailable KELLY, Iván R Admitting Unavailable JOHN, YARITZA Attending Unavailable JOHN, YARITZA Admitting Unavailable JOHN, YARITZA Primary Care Unavailable JOHN, YARITZA Consulting Unavailable JOHN, YARITZA Attending Unavailable JOHN, YARITZA Admitting Unavailable JOHN, YARITZA Primary Care Unavailable TOMLIN ., DR FLACON Admitting Unavailable TOMLIN ., DR FALCON Consulting [...] Unavailable JOHN, YARITZA Primary Care Unavailable John SECURITY COORDINATOR-C, Yaritza Harris Primary Care Provider [phone] Audie Truong MD Attending Provider [phone] Yi Durham MD Attending Provider Yaritza Lopez Primary Care Unavailable Yi Durham Attending Unavailable Yi Durham Admitting Unavailable Allergies Allergy Classification Reported Allergen(s) Allergy Type Date of Onset Reaction(s) Facility (1 source) No Known Medication Allergies; Translations: [No Known Medication Allergies] Propensity to adverse reactions (disorder) [facility] Repository Medications Current Medications Medication Drug Class(es) Dates Sig (Normalized) Sig (Original) acetaminophen 325 mg oral capsule (5 sources) Start: 05-12-2024 take 1 capsule by mouth every six hours as needed for pain Acetaminophen 325 mg capsule Active 325 MG PO Every 6 hours as needed for pain May 12, 2024 1:00am Complies with drug therapy alendronic acid 70 mg oral tablet (15 sources) Bisphosphonate Start: 10-19-2023 take 1 tablet [...] hydrochloride 300 mg extended release oral tablet (15 sources) Aminoketone Start: 10-19-2023 take 1 tablet [...] day Active cholecalciferol 0.05 mg oral capsule (8 sources) Vitamin D Start: 2023 take 1 [...] Ordered ferrous sulfate 325 mg oral tablet (4 sources) Start: 2024 Ferrous Sulfate 325 mg [...] propionate 0.05 mg/actuat metered dose nasal spray (11 sources) Corticosteroid Start: 05-12-2024 Fluticasone Pr opionate 50 mcg/actuation spray,suspension Active 2 SPRAY INTRANASAL Daily as needed for allergy symptoms May 12, 2024 11:53am Complies with drug therapy Start: 05-03-2024 End: 05-12-2024 Fluticasone Propionate 50 mc g/actuation spray,suspension Discontinued INTRANASAL May 03, 2024 1:00am May 12, 2024 11:59am fluticasone 0.05 mg/inh Nasal [place] (2 sources) Start: 01-01-2019 take 2 spray(s) nasal route once daily fluticasone 0.05 mg/inh Nasal [place] 2 spray(s), Nasal, Daily, each nostril Start [...] Ordered levothyroxine sodium 0.15 mg oral tablet (17 sources) l-Thyrox ine Start: 10-19-2023 take 1 tablet by mouth once daily Levothyroxine 150 mcg tablet Active 150 MCG PO Daily October 19, 2023 12:00am Complies with drug therapy Start: 01-01-2019 take 1 capsule by mo [facility] once daily levothyroxine 125 mcg (0.125 mg) [...] Active losartan potassium 100 mg oral tablet (17 sources) Angiotensin 2 Receptor Reinier Start: 10-19-2023 take 1 tablet by mouth once daily Losartan 100 mg tablet Active 100 MG PO Daily October 19, 2023 12:00am Complies with drug therapy Start: 01-01-2019 take 1 tablet by mouth once da tc losartan 100 mg Tab 100 mg = 1 tab(s), Oral, Daily Start Date: 01/01/19 Status: Ordered lovastatin 40 mg oral tablet (17 sources) HMG-CoA Reductase Inhibitor Start: 10-19-2023 take 1 tablet by mouth once daily Lovastatin 40 mg tablet Active 40 MG PO Daily October 19, 2023 12:00am Complies with drug therapy Start: 01-01-2019 take 1 tablet by lester once daily lovastatin 40 mg Tab 40 mg = 1 tab(s), Oral, Daily Start Date: 01/01/19 Status: Ordered methylsulfonylmethane 1000 mg oral capsule (6 sources) Start: 05-12-2024 take 1 capsule by mouth once daily Methylsulfonylmethane (Msm) 1,000 mg capsule Active 1000 MG PO Daily May 12, 2024 1:00am Complies with drug therapy Start: 05-12-2024 take 1 capsule by mo [facility] twice daily Methylsulfonylmethane (Msm) 1,000 mg capsule Active 1000 MG PO Twice daily May 12, 2024 1:00am Complies with drug therapy Start: 05-12-2024 take 1 capsule by mo ut twice daily Methylsulfonylmethane (Msm) 1,000 mg capsule Active 1000 MG PO Twice daily May 12, 2024 1:00am take 1 capsule by mo [facility] every twenty-four hours MSM 500 MG 1 [...] directed Orally Active Multivitamin (Daily Multi-Vitamin) tablet (5 sources) Start: 05-12-2024 take 2 tablets by mouth once daily Multivitamin (Daily Multi-Vitamin) tablet Active 2 TAB PO Daily May 12, 2024 1:00am Complies with drug therapy Start: 05-12-2024 take 2 tablets by mo [facility] once daily Multivitamin (Daily Multi-Vitamin) tablet Active 2 TAB PO Daily May 12, 2024 1:00am Start: 05-12-2024 take 2 tablets by mo ut once daily Multivitamin (Daily Multi-Vitamin) tablet Active 2 TAB PO Daily May 12, 2024 12:00am Multivitamin Adult - (3 sources) take 1 tablet by mouth once daily Multivitamin Adult - 1 tablet Orally daily Active omeprazole 40 mg delayed release oral capsule (15 sources) Proton Pump Inhibitor Start: take 1 capsule by mouth once daily Omeprazole 40 mg capsule,delayed release(DR/EC) Active 40 MG PO Daily October 19, 2023 12:00am Complies with drug therapy take 1 capsule by [facility] every twenty-four hours Omeprazole 40 MG 1 Capsule orally daily Active pantoprazole 40 mg delayed release oral tablet [...] Active raloxifene hydrochloride 60 mg oral tablet (15 sources) Estrogen Agonist/Antagon ist Start: 10-19-2023 take 1 tablet by mouth once daily Raloxifene 60 mg tablet Active 60 MG PO Daily October 19, 2023 12:00am Complies with drug therapy take 1 tablet by lester th every twenty-four hours Raloxifene HCl 60 MG 1 Tablet orally Daily Active triamcinolone acetonide 0.001 mg/mg topical ointment (11 sources) Corticosteroid Start: 05-03-2024 End: 05-12-2024 Triamcinolone Acetonide 0.1 % ointment Active 1 APPLIC TOPICAL Twice daily as needed for yeast May 12, 2024 11:54am Complies with drug [...] mg / clavulanate 125 mg oral tablet (13 sources) Penicillin-class Antibacterial Start: 05-03-2024 End: 07-17-2024 [...] 1:01pm calcium carbonate 1500 mg oral tablet (8 sources) Start: 10-19-2023 End: 05-12-2024 Calcium Carbonate [...] procedure, # 2 tab(s), Refills(s) 0, Pharmacy: [facility]/pharmacy #[id number], 162, cm, 07/02/22 14:24:00 EDT, Height/Length Dosing, 74, kg, 07/02/22 14:24:00 EDT, W... Start Date: 07/02/22 Status: Ordered magnesium oxide 400 mg oral capsule (7 sources) Start: 11-11-2023 End: 12-24-2024 take 1 capsule by mouth once daily Magnesium Oxide 400 mg magnesium capsule Discontinued 400 MG PO Daily November 11, 2023 12:00am December 24, 2024 9:19am methylPREDNISolone 4 mg oral tablet (3 sources) Corticosteroid Start: 07-17-2024 End: 11-12-2024 take 1 tablet by mouth once Methylprednisolone (Medrol (Daniel)) 4 mg tablets,dose pack Discontinued 0 PO per package directions July 17, 2024 12:00am November 12, 2024 11:05am PO PER PKG DIR for 6 days montelukast 10 mg oral tablet (17 sources) Leukotriene Receptor Antagonist Start: 10-19-2023 End: [...] Oral, qPM Start Date: 01/01/19 Status: Ordered ondansetron 4 mg disintegrating oral tablet (4 sources) Serotonin-3 Receptor Antagonist Start: 07-22-2024 End: 12-24-2024 take 1 tablet by mouth every eight hours as needed for nausea and vomiting Ondansetron 4 mg tablet,disintegrating Discontinued 4 MG PO Every 8 hours as needed for nausea and vomiting 6 2 July 22, 2024 12:00am December 24, 2024 9:19am Start: 01-01-2019 take 1 tablet by lester th four times daily Zofran ODT 4 mg Tab 4 mg = 1 tab(s), Oral, QID Start Date: 01/01/19 Status: Ordered traZODone hydrochloride 50 mg oral tablet (6 sources) Serotonin Reuptake Inhibitor Start: 05-03-2024 End: 11-12-2024 take 1 tablet by mouth once daily at bedtime Trazodone 50 mg tablet Discontinued 50 MG PO Daily at bedtime May 03, 2024 1:00am November 12, 2024 11:06am valACYclovir 1000 mg oral tablet (3 sources) Herpesvirus Nucleoside Analog DNA Polymerase Inhibitor, Herpes Simplex Virus Nucleoside Analog DNA Polymerase Inhibitor, Herpes Zoster Virus Nucleoside Analog DNA Polymerase Inhibitor Start: 07-17-2024 End: 11-12-2024 Valacyclovir 1 gram tablet Discontinued 1000 MG PO Q8H 21 July 17, 2024 12:00am November 12, 2024 11:06am Problems Active Problems Problem Classification Problem Date Documented Date Episodic/Chronic Abdominal pain (4 sources) Epigastric pain; Translations: [Periumbilical pain] 01-06-2019 Episodic Anxiety disorders (11 sources) Anxiety; Translations: [Anxiety disorder, unspecified] 06-29-2024 Chronic Biliary tract disease (2 sources) Biliary calculus 01-06-2019 Episodic Chronic kidney disease (20 sources) Chronic kidney disease stage 3; Translations: [Chronic kidney disease, stage 3 (moderate)] 11-09-2023 Chronic Chronic kidney disease (14 sources) Chronic kidney disease; Translations: [Chronic kidney disease, stage 3 unspecified] Onset: 1 Resolved: 2 Coagulation and hemorrhagic disorders (5 sources) Thrombocytopenic disorder; Translations: [Thrombocytopenia, unspecified] Chronic [...] 01-06-2019 Chronic Genitourinary symptoms and ill-defined conditions (17 sources) Other microscopic hematuria; Translations: [Microscopic hematuria] [...] Chronic Other diseases of kidney and ureters (16 sources) Secondary hyperparathyroidism; Translations: [Secondary hyperparathyroidism of [...] Chronic Other nutritional; endocrine; and metabolic disorders (9 sources) Hypomagnesemia; Translations: [Hypomagnesemia] 11-09-2023 Chronic Other nutritional; endocrine; and metabolic disorders (4 sources) Hypomagnesemia; Translations: [Disorders of magnesium metabolism] 11-11-2023 Chronic Other screening for suspected conditions (not mental disorders or infectious disease) (2 sources) CT of abdomen abnormal 01-06-2019 Episodic Other upper respiratory infections (4 sources) Chronic sinusitis, unspecified; Translations: [CHRONIC SINUSITIS UNSPECIFIED] Onset: Chronic Other upper respiratory infections (15 sources) Acute maxillary sinusitis; Translations: [Acute maxillary sinusitis, unspecified] 10-19-2023 Episodic Thyroid disorders (9 sources) Hypothyroidism; Translations: [Hypothyroidism, unspecified] 01-06-2019 Chronic Unclassified (1 source) D69.6 - Thrombocytopenia, unspecified Past or Other Problems Problem Classification Problem Date Documented Da te Episodic/Chronic Deficiency and other anemia (1 source) Anemia, unspecified; Translations: [ANEMIA UNSPECIFIED] Onset: 11-17-2021 Episodic Results Test Name Value Interpretation Reference Range Facility Basophils [#/volume] in Bloo d by Automated countOrdered By: Yi Durham on 12-24-2024 Basophils (Bld) [#/Vol] 0.1 10*3/uL Normal 0.0-0.[address] [facility] Comment on above: Result Comment: PERF ORMED BY: [place] [address] PATHOLOGIST LEAD PHP DEVELOPER TYLER MARTI M.D. Performed By: #### C BC, PP #### [facility] [address] [place] [address] Basophils/100 leukocytes in Blood by Automated countOrdered By: Yi Durham on 12-24-2024 Basophils/100 WBC (Bld) 1.2 % Normal . [facility] Comment on above: Performed By: #### C BC, PP #### [address] guided bone marrow bx/asp iron 12-24-2024 CT guided bone marrow bx/aspir [facility] [place] [address] [place] [address] CT Scan Report Signed Patient: Peg Hadley MR#: [id number] : 1950 Acct:[id number] Age/Sex: 74 / F ADM Date: 12/24/24 Loc: CT Room: Type: [facility] Attending Dr: Yi Durham MD Copies to: Yi Durham MD Ordering Provider: Yi Durham MD Date of Service: 12/24/24 CT/CT guided bone marrow bx/aspir: D69.6,G62.89,D64.9,D50.9,N 18.9,C90.00 CT guided bone marrow bx/aspir 12/24/2024 11:15 AM SIGNS AND SYMPTOMS: Thrombocytopenia, multiple myeloma, anemia INFORMED CONSENT: Reason for procedure was discussed with the patient. The procedure expectations risks benefits options and alternatives were discussed. All the questions were answered. The patient understood the results cannot be guaranteed. The procedure is indicated and risks were acceptable. Consent was obtained. PROCEDURE: The right posterior iliac spine was visualized using CT imaging. The skin was marked in this location. The skin was prepped and draped in a sterile manner. Eight ml of lidocaine 1% without epinephrine was used for local anesthesia. Using a 9 gauge drill assisted Arrow [employer] Control biopsy system 11 ml of marrow aspirate were obtained. A 3 cm core needle specimen was obtained. The needle was removed and hemostasis was gained with manual pressure. A bandage was placed over the puncture site. The patient tolerated the procedure well. No immediate complications were detected. CT/CT guided bone marrow bx/aspir IMPRESSION: Successful CT guided bone marrow aspiration and core needle biopsy as above. Impression dictated by: Radhames Buck M.D. 12/24/2024 2:50 PM Dictation Location: [place] [address] Transcribed By: [facility] 12/24/24 0840 Dictated By: Radhames Buck II, MD 12/24/24 1430 Signed By: 12/24/24 1450 Normal [facility] Coagulation Profileon 2024 aPTT Coag (Bld) [Time] 29.8 s Normal 25.1-36.5 [facility] Comment on above: Result Comment: A he matocrit value greater than 55% may lead to inaccurate results in coagulation testing. Patients having hematocrit values >55% require a special collection tube for coagulation studies. Please contact the laboratory at [phone] for redraw instructions. PERFORMED BY: [place] [address] PATHOLOGIST LEAD PHP DEVELOPER TYLER MARTI M.D. Performed By: #### C BC, PP #### [address] Complete Blood Count Auto Di ffon 12-24-2024 Mean Corpuscular HGB Conc 32.4 g/dL Normal 32.0-35.0 [facility] Comment on above: Performed By: #### C BC, PP #### [address] NRBC% 0.1 /100{WBC} Normal 0-0.5 [facility] Comment on above: Performed By: #### C BC, PP #### [address] White Blood Count 7.7 [CFU]/mL Normal 3.8-11.6 [facility] Comment on above: Performed By: #### C BC, PP #### [address] Eosinophils [#/volume] in Bl ood by Automated countOrdered By: Yi Durham on 12-24-2024 Eosinophils (Bld) [#/Vol] 0.2 10*3/uL Normal 0.0-0.[address] [facility] Comment on above: Performed By: #### C BC, PP #### [place] [address] [place] Eosinophils/100 leukocytes i n Blood by Automated countOrdered By: Yi Durham on 12-24-2024 Eosinophils/100 WBC (Bld) 2.5 % Normal . [facility] Comment on above: Performed By: #### C BC, PP #### [address] Erythrocyte distribution wid th [Ratio] by Automated countOrdered By: Yi Durham on 12-24-2024 Erythrocyte distribution width (RBC) [Ratio] 14.7 % Normal 11.9-15.[address] [facility] Comment on above: Performed By: #### C BC, PP #### [address] Erythrocytes [#/volume] in B lood by Automated countOrdered By: Yi Durham on 12-24-2024 RBC (Bld) [#/Vol] 4.43 10*6/uL Normal 3.60-5.00 [facility] Comment on above: Performed By: #### C BC, PP #### [address] Hematocrit [Volume Fraction] of Blood by Automated countOrdered By: Yi Durham on 12-24-2024 Hematocrit (Bld) [Volume fraction] 37.2 % Normal 34.0-46.[address] [facility] Comment on above: Performed By: #### C BC, PP #### [address] Hemoglobin [Mass/volume] in BloodOrdered By: Yi Durham on 12-24-2024 Hemoglobin (Bld) [Mass/Vol] 12.1 g/dL Normal 11.8-15.[address] [facility] Comment on above: Performed By: #### C BC, PP #### [address] INR in Platelet poor plasma by Coagulation assayOrdered By: Yi Durham on 12-24-2024 INR Coag (PPP) [Relative time] 1.0 {INR} Normal [facility] Comment on above: INR Therapeutic Rang e A) Pre- and Peroperative OAT started two weeks before surgery. NOT HIP SURGERY: 1.5 - 2.5 HIP SURGERY: 2 - 3B) Primary and secondary prevention of venous THROMBOSIS: 2 - 3C) Active venous thrombosis, pulmonary embolismand prevention of recurrent venous thrombosis: 2 - 3D) Prevention of arterial thromboembolismincluding patients with mechanical heart valves: 3 - 4.5 Result Comment: INR Therapeutic Range A) Pre- and Peroperative OAT started two weeks before surgery. NOT HIP SURGERY: 1.5 - 2.5 HIP SURGERY: 2 - 3 B) Primary and secondary prevention of venous THROMBOSIS: 2 - 3 C) Active venous thrombosis, pulmonary embolism and prevention of recurrent venous thrombosis: 2 - 3 D) Prevention of arterial thromboembolism including patients with mechanical heart valves: 3 - 4.5 Performed By: #### C BC, PP #### [address] Leukocytes [#/volume] correc milagros for nucleated erythrocytes in Blood by Automated counOrdered By: Yi Durham on 12-24-2024 WBC corrected for nucl RBC Auto (Bld) [#/Vol] 7.7 10*3/uL 3.8-11.[address] [facility] Leukocytes [#/volume] in Blo od by Automated countOrdered By: Yi Durham on 12-24-2024 WBC (Bld) [#/Vol] 7.7 10*3/uL Normal 3.8-11.6 [facility] Comment on above: Performed By: #### C BC, PP #### [place] [address] [place] Lymphocytes [#/volume] in Bl ood by Automated countOrdered By: Yi Durhma on 12-24-2024 Lymphocytes (Bld) [#/Vol] 1.8 10*3/uL Normal 1.00-4.[address] [facility] Comment on above: Performed By: #### C BC, PP #### [place] [address] [place] Lymphocytes/100 leukocytes i n Blood by Automated countOrdered By: Yi Durham on 12-24-2024 Lymphocytes/100 WBC (Bld) 23.8 % Normal . [facility] Comment on above: Performed By: #### C BC, PP #### [place] [address] [place] MCH [Entitic mass] by Automa milagros countOrdered By: Yi Durham on 12-24-2024 MCH (RBC) [Entitic mass] 27.2 pg Normal 24.7-34.[address] [facility] Comment on above: Performed By: #### C BC, PP #### [address] MCHC Auto (RBC) [Mass/Vol]Or dered By: Yikhloe Durham on 12-24-2024 MCHC (RBC) [Mass/Vol] 32.4 g/dL 32.0-35.0 [facility] MCV [Entitic volume] by Auto mated countOrdered By: Yi Durham on 12-24-2024 MCV (RBC) [Entitic vol] 83.8 fL Normal 80-[address] [facility] Comment on above: Performed By: #### C BC, PP #### [place] [address] [place] Monocytes [#/volume] in Bloo d by Automated countOrdered By: Yi Durham on 12-24-2024 Monocytes (Bld) [#/Vol] 0.6 10*3/uL Normal 0.0-0.[address] [facility] Comment on above: Performed By: #### C BC, PP #### [place] [address] [place] Monocytes/100 leukocytes in Blood by Automated countOrdered By: Yi Durham on 12-24-2024 Monocytes/100 WBC (Bld) 8.3 % Normal . [facility] Comment on above: Performed By: #### C BC, PP #### [place] [address] [place] Neutrophils [#/volume] in Bl ood by Automated countOrdered By: Yi Durham on 12-24-2024 Neutrophils (Bld) [#/Vol] 5.0 10*3/uL Normal 1.8-7.[address] [facility] Comment on above: Performed By: #### C BC, PP #### [place] [address] [place] Neutrophils/100 leukocytes i n Blood by Automated countOrdered By: Yi Durham on 12-24-2024 Neutrophils/100 WBC (Bld) 64.2 % Normal . [facility] Comment on above: Performed By: #### C BC, PP #### [address] Nucleated erythrocytes [Pres ence] in Blood by Automated countOrdered By: Yi Durham on 12-24-2024 Nucleated RBC Auto Ql (Bld) 0.1 /100{WBC} 0-0.[address] [facility] Platelet mean volume [Entiti c volume] in Blood by Automated countOrdered By: Yi Durham on 12-24-2024 Platelet mean volume (Bld) [Entitic vol] 10.3 fL Normal 6.3-10.[address] [facility] Comment on above: Performed By: #### C BC, PP #### [address] Platelets [#/volume] in Bloo d by Automated countOrdered By: Yi Durham on 12-24-2024 Platelets (Bld) [#/Vol] 118 10*3/uL Low 150-[address] [facility] Comment on above: Performed By: #### C BC, PP #### [place] [id number] [facility] Prothrombin time (PT)Ordered By: Yi Durham on 12-24-2024 PT Coag (PPP) [Time] 11.4 s Normal 9.0-12.9 [facility] Comment on above: A hematocrit value g reater than 55% may lead to inaccurate results in coagulation testing. Patients having hematocrit values >55% require a special collection tube for coagulation studies. Please contact the laboratory at [phone] for redraw instructions. Result Comment: A he matocrit value greater than 55% may lead to inaccurate results in coagulation testing. Patients having hematocrit values >55% require a special collection tube for coagulation studies. Please contact the laboratory at [phone] for redraw instructions. Performed By: #### C BC, PP #### [address] [place] [address] [facility] aPTT in Platelet poor plasma by Coagulation assayOrdered By: Yi Durham on 12-24-2024 aPTT Coag (PPP) [Time] 29.8 s 25.1-36.5 [facility] Comment on above: A hematocrit value g reater than 55% may lead to inaccurate results in coagulation testing. Patients having hematocrit values >55% require a special collection tube for coagulation studies. Please contact the laboratory at [phone] for redraw instructions. Erythrocyte distribution wid th Auto (RBC) [Ratio]Ordered By: Audie Truong on 11-04-2024 Erythrocyte distribution width (RBC) [Ratio] 14.4 % 11.0-15.[address] [facility] Estimated glomerular filtrat ion rate (GFR) non- AmericanOrdered By: Audie Truong on 11-04-2024 GFR/1.73 sq M.predicted among non-blacks MDRD (S/P/Bld) [Vol rate/Area] 35 mL/min/{1.73_m2} Low >=60 mL/min/1.73 m [address] [facility] Hematocrit Auto (Bld) [Volum e fraction]Ordered By: Audie Truong on 11-04-2024 Hematocrit (Bld) [Volume fraction] 37.6 % 36.0-48.[address] [facility] Hemoglobin [Mass/volume] in BloodOrdered By: Audie Truong on 11-04-2024 Hemoglobin (Bld) [Mass/Vol] 11.9 g/dL Low 12.0-16.[address] [facility] Iron binding capacity [Mass/ volume] in Serum or PlasmaOrdered By: Audie Truong on 11-04-2024 Iron binding capacity [Mass/Vol] 281.0 ug/dL 250.0-450.[address] [facility] Iron saturation [Mass Fracti on] in Serum or PlasmaOrdered By: Audie Truong on 11-04-2024 Iron saturation [Mass fraction] 13.5 % [facility] Laboratory - Chemistry and C hemistry - challengeOrdered By: Audie Truong on 11-04-2024 Albumin [Mass/Vol] 3.1 g/dL Low 3.4-5.0 [facility] Calcium [Mass/Vol] 8.2 mg/dL Low 8.5-10.1 [facility] Chloride [Moles/Vol] 106 mmol/L 98-107 [facility] CO2 [Moles/Vol] 24.8 mmol/L 21.0-32.0 [facility] Creatinine [Mass/Vol] 1.45 mg/dL High 0.55-1.02 [facility] GFR/1.73 sq M.predicted MDRD (S/P/Bld) [Vol rate/Area] 43 mL/min/{1.73_m2} Low >=60 mL/min/1.73 m [address] [facility] Glucose [Mass/Vol] 107 mg/dL High 74-106 [facility] Iron [Mass/Vol] 38.0 ug/dL Low 50.0-170.[address] [facility] Magnesium [Mass/Vol] 1.9 mg/dL 1.8-2.4 [facility] Potassium [Moles/Vol] 4.0 mmol/L 3.5-5.1 [facility] Sodium [Moles/Vol] 143 mmol/L 136-145 [facility] Urate [Mass/Vol] 5.3 mg/dL 2.6-6.0 [facility] Urea nitrogen [Mass/Vol] 20.0 mg/dL High 7.0-18.[address] [facility] Urea nitrogen/Creatinine [Mass ratio] 13.8 mg/mg [facility] Bilirubin Ql (U) Negative NEGATIVE [facility] Glucose (U) [Mass/Vol] Negative NEGATIVE [facility] Ketones Ql (U) Negative NEGATIVE [facility] pH (U) 6.0 [pH] 5.0-9.[address] [facility] Specific gravity (U) [Rel density] 1.025 1.005-1.[address] [facility] Urobilinogen Qn (U) 0.2 {Mikel'U}/dL 0.2-1.[address] [facility] Laboratory - Specimen inform ationOrdered By: Audie Truong on 11-04-2024 Appearance (U) CLEAR CLEAR [facility] Color (U) YELLOW YELLOW [facility] Laboratory - UrinalysisOrder ed By: Audie Truong on 11-04-2024 Leukocyte esterase Test strip Ql (U) Negative NEGATIVE [facility] Mucus Ql (Urine sed) NONE SEEN NONE SEEN [facility] Nitrite Ql (U) Negative NEGATIVE [facility] Protein (U) [Mass/Vol] 40.1 mg/dL High <=11[facility]9 [facility] Ql (U) TRACE mg/dL NEG/TRACE [facility] Leukocytes [#/volume] correc milagros for nucleated erythrocytes in Blood by Automated counOrdered By: Audie Truong on 11-04-2024 WBC corrected for nucl RBC Auto (Bld) [#/Vol] 8.7 10 3/uL 4.0-11.[address] [facility] MCH Auto (RBC) [Entitic mass ]Ordered By: Audie Truong on 11-04-2024 MCH (RBC) [Entitic mass] 27.8 pg 26.7-34.[address] [facility] MCHC Auto (RBC) [Mass/Vol]Or dered By: Audie Truong on 11-04-2024 MCHC (RBC) [Mass/Vol] 31.6 g/dL 29.9-35.2 [facility] MCV Auto (RBC) [Entitic vol] Ordered By: Audie Truong on 11-04-2024 MCV (RBC) [Entitic vol] 87.9 fL 81.0-99.[address] [facility] No Panel InformationOrdered By: Audie Truong on 11-04-2024 25-Hydroxy Vitamin D Total 70.3 ng/mL [facility] Comment on above: <20 ng/mL Vit D defi cient20-<30 ng/mL Vit D dgexrccuwitl58-044 ng/mL Vit D sufficient>100 ng/mL Potential Toxicity Miscellaneous Test COMMENT . [facility] Comment on above: Test Ordered: [id number] FerritinFerritin 101 ng/mL CB Reference Range: 15-150Performed at: - [facility] [address] [id number] Director: Rich Camejo PhD, Phone: [phone] Parathyroid Hormone (Intact) 124 pg/mL Abnormal 15-[address] [facility] Comment on above: Performed at: - [address] [id number] Director: Rich Camejo PhD, Phone: [phone] Phosphorus Level 2.5 mg/dL Low 2.6-4.7 [facility] Urine Bacteria NONE SEEN #/HPF NONE SEEN [facility] Urine Occult Blood TRACE-I NEGATIVE [facility] Urine Other Casts NONE SEEN #/LPF NONE SEEN [facility] Urine Other Crystals None Seen #/HPF None Seen [facility] Urine Random Creatinine 288.44 mg/dL 20.00-300.[address] [facility] Urine RBC 0-2 #/HPF 0-[address] [facility] Urine Squamous Epithelial Cells FEW #/LPF Abnormal NONE/RARE [facility] Urine WBC 0-2 #/HPF Abnormal NONE SEEN [facility] Platelet mean volume Auto (B ld) [Entitic vol]Ordered By: Audie Truong on 11-04-2024 Platelet mean volume (Bld) [Entitic vol] 12.1 fL 9.5-13.[address] [facility] Platelets Auto (Bld) [#/Vol] Ordered By: Audie Camarenadir on 11-04-2024 Platelets (Bld) [#/Vol] 118 10 3/uL Low 150-[address] [facility] RBC Auto (Bld) [#/Vol]Ordere d By: Audie Truong on 11-04-2024 RBC (Bld) [#/Vol] 4.28 10 6/uL 4.20-5.40 [facility] Serum or plasma anion gap de terminationOrdered By: Audie Truong on 11-04-2024 Anion gap [Moles/Vol] 16.2 mmol/L [facility] Urine protein/creatinine rat ioOrdered By: Audie Truong on 11-04-2024 Protein/Creatinine (U) [Ratio] 0.[address] [facility] Erythrocyte distribution wid th Auto (RBC) [Ratio]on 05-05-2024 Erythrocyte distribution width (RBC) [Ratio] Erythrocyte distribution width [Ratio] by Automated count 11.0-15.[address] [facility] Estimated glomerular filtrat ion rate (GFR) non- Americanon 05-05-2024 GFR/1.73 sq M.predicted among non-blacks MDRD (S/P/Bld) [Vol rate/Area] Estimated glomerular filtration rate (GFR) non- Low >=60 mL/min/1.73 m [address] [facility] Hematocrit Auto (Bld) [Volum e fraction]on 05-05-2024 Hematocrit (Bld) [Volume fraction] Hematocrit [Volume Fraction] of Blood by Automated count 36.0-48.[address] [facility] Hemoglobin [Mass/volume] in Bloodon 05-05-2024 Hemoglobin (Bld) [Mass/Vol] Hemoglobin [Mass/volume] in Blood 12.0-16.[address] [facility] Iron binding capacity [Mass/ volume] in Serum or Plasmaon 05-05-2024 Iron binding capacity [Mass/Vol] Iron binding capacity [Mass/volume] in Serum or Plasma Low 250.0-450.[address] [facility] Iron saturation [Mass Fracti on] in Serum or Plasmaon 05-05-2024 Iron saturation [Mass fraction] Iron saturation [Mass Fraction] in Serum or Plasma [facility] Laboratory - Chemistry and C hemistry - challengeon 05-05-2024 Albumin [Mass/Vol] 3.1 g/dL Low 3.4-5.0 [facility] Calcium [Mass/Vol] 8.3 mg/dL Low 8.5-10.1 [facility] Chloride [Moles/Vol] 105 mmol/L 98-107 [facility] CO2 [Moles/Vol] 28.9 mmol/L 21.0-32.0 [facility] Creatinine [Mass/Vol] 1.47 mg/dL High 0.55-1.02 [facility] Ferritin [Mass/Vol] 93.0 ng/mL 8.0-252.0 [facility] GFR/1.73 sq M.predicted MDRD (S/P/Bld) [Vol rate/Area] 42 mL/min/{1.73_m2} Low >=60 mL/min/1.73 m [address] [facility] Glucose [Mass/Vol] 104 mg/dL 74-106 [facility] Iron [Mass/Vol] 40.0 ug/dL Low 50.0-170.[address] [facility] Magnesium [Mass/Vol] 2.0 mg/dL 1.8-2.4 [facility] Potassium [Moles/Vol] 4.0 mmol/L 3.5-5.1 [facility] Sodium [Moles/Vol] 143 mmol/L 136-145 [facility] Urate [Mass/Vol] 5.1 mg/dL 2.6-6.0 [facility] Urea nitrogen [Mass/Vol] 16.0 mg/dL 7.0-18.[address] [facility] Urea nitrogen/Creatinine [Mass ratio] 10.9 mg/mg [facility] Bilirubin Ql (U) Negative NEGATIVE [facility] Glucose (U) [Mass/Vol] Negative NEGATIVE [facility] Ketones Ql (U) Negative NEGATIVE [facility] pH (U) 5.5 [pH] 5.0-9.[address] [facility] Specific gravity (U) [Rel density] >=1.030 Abnormal 1.005-1.[address] [facility] Urobilinogen Qn (U) 0.2 {Mikel'U}/dL 0.2-1.[address] [facility] Laboratory - Specimen inform ationon 05-05-2024 Appearance (U) CLEAR CLEAR [facility] Color (U) YELLOW YELLOW [facility] Laboratory - Urinalysison Leukocyte esterase Test strip Ql (U) SMALL Abnormal NEGATIVE [facility] Mucus Ql (Urine sed) TRACE Abnormal NONE SEEN [facility] Nitrite Ql (U) Negative NEGATIVE [facility] Protein (U) [Mass/Vol] 38.9 mg/dL High <=11.9 [facility] Protein Ql (U) TRACE mg/dL NEG/TRACE [facility] Leukocytes [#/volume] correc milagros for nucleated erythrocytes in Blood by Automated counon 05-05-2024 WBC corrected for nucl RBC Auto (Bld) [#/Vol] Leukocytes [#/volume] corrected for nucleated erythrocytes in Blood by Automated coun 4.0-11.[address] [facility] MCH Auto (RBC) [Entitic mass ]on 05-05-2024 MCH (RBC) [Entitic mass] MCH [Entitic mass] by Automated count 26.7-34.[address] [facility] MCHC Auto (RBC) [Mass/Vol]on 05-05-2024 MCHC (RBC) [Mass/Vol] MCHC [Mass/volume] by Automated count 29.9-35.[address] [facility] MCV Auto (RBC) [Entitic vol] on 05-05-2024 MCV (RBC) [Entitic vol] MCV [Entitic volume] by Automated count 81.0-99.[address] [facility] No Panel Informationon 05-05 25-Hydroxy Vitamin D Total 76.3 ng/mL [facility] Comment on above: <20 ng/mL Vit D defi cient20-<30 ng/mL Vit D bmkrnsapbsty50-360 ng/mL Vit D sufficient>100 ng/mL Potential Toxicity Parathyroid Hormone (Intact) 90 pg/mL Abnormal 15-[address] [facility] Comment on above: Performed at: - [facility] [place] [id number] Director: Rich Camejo PhD, Phone: [phone] Phosphorus Level 3.1 mg/dL 2.6-4.7 [facility] Urine Bacteria SMALL #/HPF Abnormal NONE SEEN [facility] Urine Occult Blood SMALL Abnormal NEGATIVE [facility] Urine Random Creatinine 232.52 mg/dL 20.00-300.[address] [facility] Urine RBC 2-5 #/HPF Abnormal 0-[address] [facility] Urine Squamous Epithelial Cells MODERATE #/LPF Abnormal NONE/RARE [facility] Urine WBC 10-20 #/HPF Abnormal NONE SEEN [facility] Platelet mean volume Auto (B ld) [Entitic vol]on 05-05-2024 Platelet mean volume (Bld) [Entitic vol] Platelet mean volume [Entitic volume] in Blood by Automated count 9.5-13.[address] [facility] Platelets Auto (Bld) [#/Vol] on 05-05-2024 Platelets (Bld) [#/Vol] Platelets [#/volume] in Blood by Automated count Low 150-[address] [facility] RBC Auto (Bld) [#/Vol]on RBC (Bld) [#/Vol] Erythrocytes [#/volu me] in Blood by Automated count 4.20-5.[address] [facility] Serum or plasma anion gap de terminationon 05-05-2024 Anion gap [Moles/Vol] Serum or plasma an ion gap determination [facility] Urine protein/creatinine rat ioon 05-05-2024 Protein/Creatinine (U) [Ratio] Urine protein/creatinine ratio [facility] Erythrocyte distribution wid th Auto (RBC) [Ratio]on 11-07-2023 Erythrocyte distribution width (RBC) [Ratio] 13.8 % 11.0-15.[address] [facility] Estimated glomerular filtrat ion rate (GFR) non- Americanon 11-07-2023 GFR/1.73 sq M.predicted among non-blacks MDRD (S/P/Bld) [Vol rate/Area] 35 mL/min/{1.73_m2} Low >=[address] [facility] Hematocrit Auto (Bld) [Volum e fraction]on 11-07-2023 Hematocrit (Bld) [Volume fraction] 38.7 % 36.0-48.[address] [facility] Hemoglobin [Mass/volume] in Bloodon 11-07-2023 Hemoglobin (Bld) [Mass/Vol] 11.9 g/dL Low 12.0-16.[address] [facility] Laboratory - Chemistry and C hemistry - challengeon 11-07-2023 Albumin [Mass/Vol] 3.1 g/dL Low 3.4-5.0 [facility] Calcium [Mass/Vol] 8.7 mg/dL 8.5-10.1 [facility] Chloride [Moles/Vol] 103 mmol/L 98-107 [facility] CO2 [Moles/Vol] 28.9 mmol/L 21.0-32.0 [facility] Creatinine [Mass/Vol] 1.46 mg/dL High 0.55-1.02 [facility] GFR/1.73 sq M.predicted MDRD (S/P/Bld) [Vol rate/Area] 43 mL/min/{1.73_m2} Low >=[address] [facility] Glucose [Mass/Vol] 100 mg/dL 74-106 [facility] Magnesium [Mass/Vol] 1.6 mg/dL Low 1.8-2.4 [facility] Potassium [Moles/Vol] 3.8 mmol/L 3.5-5.1 [facility] Sodium [Moles/Vol] 141 mmol/L 136-145 [facility] Urate [Mass/Vol] 5.3 mg/dL 2.6-6.0 [facility] Urea nitrogen [Mass/Vol] 21.0 mg/dL High 7.0-18.[address] [facility] Urea nitrogen/Creatinine [Mass ratio] 14.4 mg/mg [facility] Bilirubin Ql (U) Negative NEGATIVE [facility] Glucose (U) [Mass/Vol] [facility] Ketones Ql (U) Negative NEGATIVE [facility] pH (U) 6.0 [pH] 5.0-9.[address] [facility] Specific gravity (U) [Rel density] >=1.030 Abnormal 1.005-1.[address] [facility] Urobilinogen Qn (U) 0.2 {Mikel'U}/dL 0.2-1.[address] [facility] Laboratory - Specimen inform ationon 11-07-2023 Appearance (U) CLEAR CLEAR [facility] Color (U) LT. YELLOW YELLOW [facility] Laboratory - Urinalysison Hyaline casts LM Ql (Urine sed) RARE [facility] Leukocyte esterase Test strip Ql (U) MODERATE Abnormal NEGATIVE [facility] Mucus Ql (Urine sed) SMALL Abnormal NONE SEEN [facility] Nitrite Ql (U) Negative NEGATIVE [facility] Protein Ql (U) TRACE mg/dL NEG/TRACE [facility] Leukocytes [#/volume] correc milagros for nucleated erythrocytes in Blood by Automated counon 11-07-2023 WBC corrected for nucl RBC Auto (Bld) [#/Vol] 7.5 10 3/uL 4.0-11.[address] [facility] MCH Auto (RBC) [Entitic mass ]on 11-07-2023 MCH (RBC) [Entitic mass] 27.2 pg 26.7-34.[address] [facility] MCHC Auto (RBC) [Mass/Vol]on 11-07-2023 MCHC (RBC) [Mass/Vol] 30.7 g/dL 29.9-35.2 [facility] MCV Auto (RBC) [Entitic vol] on 11-07-2023 MCV (RBC) [Entitic vol] 88.4 fL 81.0-99.[address] [facility] No Panel Informationon 11-06 25-Hydroxy Vitamin D Total 83.6 ng/mL [facility] Comment on above: <20 ng/mL Vit D defi cient20-<30 ng/mL Vit D ldwtjlbjinoy80-171 ng/mL Vit D sufficient>100 ng/mL Potential Toxicity Parathyroid Hormone (Intact) 70 pg/mL Abnormal 15-[address] [facility] Comment on above: Performed at: - [employer] [place] [id number] Director: Rich Camejo PhD, Phone: [phone] Phosphorus Level 3.2 mg/dL 2.6-4.7 [facility] Urine Bacteria SMALL #/HPF Abnormal NONE SEEN [facility] Urine Occult Blood SMALL Abnormal NEGATIVE [facility] Urine Other Casts SEEN #/LPF Abnormal NONE SEEN [facility] Urine Other Crystals None Seen #/HPF None Seen [facility] Urine RBC 0-2 #/HPF 0-[address] [facility] Urine Squamous Epithelial Cells MANY #/LPF Abnormal NONE/RARE [facility] Urine Transitional Epithelial Cells MANY #/LPF Abnormal NONE SEEN [facility] Urine WBC 10-20 #/HPF Abnormal NONE SEEN [facility] Platelet mean volume Auto (B ld) [Entitic vol]on 11-07-2023 Platelet mean volume (Bld) [Entitic vol] 12.6 fL 9.5-13.[address] [facility] Platelets Auto (Bld) [#/Vol] on 11-07-2023 Platelets (Bld) [#/Vol] 163 10 3/uL 150-[address] [facility] RBC Auto (Bld) [#/Vol]on RBC (Bld) [#/Vol] 4.38 10 6/uL 4.20-5.40 [facility] Serum or plasma anion gap de terminationon 11-07-2023 Anion gap [Moles/Vol] 12.9 mmol/L [facility] Coding Summary.on 07-19-2022 Coding Summary. CD:[id number] Ww+PGh lYWQ+IJ7OQZDnG87xaWWmgY7zI 0NMTElOSywgQVBQTElOSyIgbmF wGV7oxMBrDPHd IC8+YB3dJOViYvsodAUwl7O3iP A1V56few4hVTiefIC2OYWqLxRa kvfod3civKg9RYfhCezgNjZi PESbwQ16ETR2xO63Ng16fDEqsJ Gaw1cetRp3ZkIxBFGkLMF1zYde GKubs4CfJVLuU87jvBRst5J9 VFYiuYqcsCTqDvSriTD9tJ0uYT elmnarm6lqtmigCag5sf90yTHx i2O2lML9L3QelvQ2COJvrEJg DrfavOVRvS9vnbqhz1jsfkdsLu GeCPRiXOh5ZGl9EPMriIakHiOm MH67XST4FUXstyVbE2LpJXWj nLxvMxJ4x8W8Ry9IO7YPBfiaN8 VNTUFSWTwvdGQ+YY69no82V4Jg CwetMwk3QUDqBLW0vEP5rU3n RNEcDLyne4Z6fYS1Y9IaniRyhw 9cv7vyQTCnQEtrO23cnLRnb1H8 XGLgiFB9ULTizJquKwZxlW32 Oyc+EWLprYapu8AoOpekz6rcz6 jqsYo1AzynBAMcygXswIlgNMG2 l2WdDl3iNFOqwNL7lRW8cT2a MlKuLnD6YDbtM639UgFiuINoGt rlH57pS0EpjSM+MEGmOzf9KWVo eQcmWQ3oL5XsINTaevaupXHq aSekTV4oHEAcplldBLPjbZ4dAL ReV7q0CgUnSjL0ABjxA4FiWRLm rimmJz13xL3pYuEfVtH4EBrc O4OgwuW6QBDuoIFcKEcaPVN2S7 4ri8U2JQHsGDZuNSO9qUB8fI9f bGlnbjogbGVmdDsgdmVydGlj GUufCQowP795FOMxpHatJfKwXY luZyBEYXRlOiAgMDMvMzAvMjAy MzwvdGQ+ZGMaKVI6cFraKHDo qIFvVMwjYl0upJexpPrrZT4gXU EfkpypAZGguY4yIHHrbBRxvZor QM1fCJQrxnzoj542JyQzESY1 KCIxaFJdM0TujR9nVuAaCRXgWM KoA2EaqQKlSFqjX380BGenChG6 JKAencQbW7EpLLRpzDftLrZ2 e1B8Dk6Wh8DdygmcI3RwhTJcPm UeQvltSSl1T8MlNnlwvOB+PC90 FWCcFN43GDi0EVI2kHkeWJpl JHAjQ1JmlM2gGtQnCIAiDXZvOu c+PHRhYmxlIHdpZHRoPScxMDAl XkSliYlzAF4iGx5yAVTgUBRo qMmoiOBpDbGxe1ebIVBgLEnyOV 0xcPvdK8EgkYQ6HHDbu5d3As86 P52tB3NceKN+VCHspAQ8wCN5 rV6zJpTfVnS2OIkvT707TmVpaK FxMbopm7xqs4iuzCh9IiH2PKWx txFnnXsaVHJ1r9YkGh84Z56y IHdpZHRoPSIxNSUiIHZhbGlnbj 2ohM8cNx8+SGWhsUF3cYJ7dP2k XeExPrA2FFcjZ689AeZeoIQq Kbger7xsi9nvmFk5RxKhLCMfeg CzuFxyELG7l6GdTi34Q9UyzMwv b7LyUza3mh43vMOcb6N5lVT5 D1CjOJTligosvKZzfVncAZ1dEM AzvcsqHXEyjV6xIKXeN1h4RrVd PaJ1LEkpV6HvfqH7QOSeoHKu UNZioERBdC5kyxxqp6btoklwBa XaVVBrHQc8KIe8HJAebSwnGmNb JVF2MvZ1HBP4zADyuH0gpEcf enqroV1bSbr+NFO0hEAveWRULO 1lOjwvdGQ+MXYeWDI1lYmeBYtw SGTkmR8sASBcS7q9LlVyFtJ6 SZttP9QqxvT1QPQqlOIkOAYwdT COcK3qctddf4ryeuvdBxXsXPWg JNc1NUg2OGOhdMxiLfCxKMO7 SaT9GTM1mGRclS2nkRhdomjjyQ 9wOyc+NhdkgJcpZDH0OQo2Z8Yj Trs3LFOpzGfcKF3euVEtDKcc Yv7nlDcrfDntVN2uONGqsxpix7 98GwMdr8yaUNVqaNRrRIhaRLM1 U31jf3Y1UMTdDLOkLKU9fIR8 kE2vtFcfyinpxBJfvAlproChpW ruVAfnNHvgG302JRWecLktAwJi AJe4J0HtIzi5CCOadSuyQL2w fJKfIVbiXq8gdBzvaLuwAW3vJB Dufwymd644VyOid1cvPLXgkGCe QLqfCMP0Z45rs1E9HLPaSZQs IMW9xKA2uV8iaHmmwelnrFHdtS axseZekPrkQVfmTQoqC842QEJi gGzcKfPvuJl5G1OqXbb1NHVh uIfdMS5lzXSfTEsiAl8dyYxmzR lpME1iGGBjydglk965RgJkt8os CBLwyTKmYJvyDDF3S86en6H0 AYRmKFWxAEV9jIX8hQ1gpSmxsp ogbGVmdDsgdmVydGljYWwtYWxp K807MJGclLgdKlYlbIufjxWq RUgbWPs4M2MvMkmhlVO+PC90YW CcUM49oAYyjUFny6valFf8WqTi BSFmPQV2yItuEGuga3FxDHWx S21hnGAdn8Q7ZSYqpHcwkYZrYg FdoRV2wK1uRPjwzckjj4niwdjj Wrgsp2tvum32lX44B71wJRmg SNPnWRSzZGWfKOXbxPmzbz4ndI 9wIi8+AVEkeDD7pII5bM2xPSXz CbB4IPefC080VvTbcKXfNoct p5eqj7ojsDu8HuS6RDFelxCksD suNMN4m4WqXm36C02jQGpxUUKt YQAgIAXfKEMtzQshdj4qlZ8m Ii8+DDPhlZY9bCK9lX3jAvXqTh U1QWmuM197ZhDwqTSsCrvmZ15a R1IrpCV+YJGuFxm8PAUxvYnm QI2wqHYwEKyfAr9jFTU6YiAdKg JoZKxqZ3XaXUHulcksrzgudTS9 NXLeDHTdgV18Wp6psEifXZPc dZMFgB5omlify6qqjlfpZiFgLP YrBZw3CUa2YQGhzEkaIqYeKAK5 PyO3QFL8bGRazE4kiDzbjgrq cB8rK1BcQQPamjvoRg97mO9lUj WcWmV0HJorSex+I5TDJxGYNWOU QTLGG6WAYtKtXThmcPS+PHRk GMM2mYsfDHlsMPXfuS2oNCSqW3 q4OcVkLqW6XHbqF6BaBUOuerri Jb11nP9rRfJaBdA3DKfaX3Fv wzM4VQCxkMGuFKoxLMG8L58kv0 C8RCRoIGGyOSL7bYY8zE5coFoy bjogbGVmdDsgdmVydGljYWwt IZsdH744QYDmtCmiVqSrTuLaMj D7UIC6A2TlDri1SOKwiGorER9x mYIdQWtkLv5ssYkhiYmuOA4c XVLyaqxgUEOkoD5lEFLgaLApmO nnHZ3jQMRkhgetp315NpSeQCI3 LGYatFIxQ9WbgP5aWhFdXCWp RCZsQ7QjtBOnHMbaY502HMiwCo K5WMGpbpHrN4FeVNPtyVglMaD9 c3A3Pj28OZRCKQRieoxplMN+ HPUjQKU5zVfiCDhsDGYrxL4uAU IuM8h4WjAsCrN2TQhwO2QtAKAz jmhiTl64bU1pWmHjWcJ7YDyj S4EiftS0JBMsqRBdJWnwUOK1E6 9iu4B2WZPgPIRrAZU8cCM0kB7d bGlnbjogbGVmdDsgdmVydGlj CWamKTixC901PVSpjIonVhIykZ FsZTwvdGQ+KOYeOTP7aEgyPJwk BAJntG6oXWVfG2r7PaUpMpW7 UTziT6SmEKEpvtzdTs79hC1tUx ZuOmG1JAxnY0IruqK9LDUuaHHe TUtbVXO2C45dj2K8JYAxYCPp EXL7uRF1cF5roWlcloqjmSXckZ bjolVfrMgjSOqwCSytU685VKJb mLdrAb16wONbyXxrcyL3K0Yi PjwvdHI+PX07UYNnSH14lEMxpM Dpp0hucLe2VsGgEINlNBS3kOag NFshl3ZlUOInO14icVOhf7I8 AJAccVolaJQmNfEjySC5iO7kPM yxlkpsl8qwyawjIygzt9ngyf88 jW73J40uCSquMCKtHCBlHFOc XRRbpMbxhx0nyW0fKz0+PGNvbC Y9sGH6eT9cAuXxZoN3MRkgN968 GjSobBRnHuitr5awf9szdRe1 BbThEJNetaNfxGjjOVD0h3JbQj 31R64rRGcbFTHqMKPqAIOyJRTp hTzsrt0vwR1fIa9+GI8sc8nd kp46kF22eOI+QZFuGCJ9eMnxMN xdEDUgiX4cVByqXxY7IJQySzIy jJ78iAMxUQucTm6lcXqwuSia YU2bARAullssf483OyPpn0vdQM MltTUoROieYJM7V59tc5O5ZPTl KZVpSTW7iCY7qE0sfHcdbnsv bGVmdDsgdmVydGljYWwtYWxpZ2 34HGXabQuyYeJzbOHlH9tnxxJF PV8eKzncvYD+OFUtEXH0iEwy QXxnIHJclW3rALBxL1o9TdSzIr A6OGrpW9PcflD4UKVuvQJoVOFv aOWKhT8hhwgxn9psvslaDsMk DJNcNRd9FRv8UJUikAxvTtUyDM I9SxS2ETP0uRRdjP0yxCcvxams iN0hLbt+RklOOjwvdGQ+PHRk RUV0eRgwAHwuNXCblU4hJUYvD3 h7LzQvQqT6LJjuV4IxfnJ9PIQz zCTgORIslJBWdT4ktxokw4wu snlgXxNrKVMqVDb8XVu9AFAchC kyTkDvIQH8MhA0FQF2rFXqjT1u bXbkqkwebE4nRec+TVJOOjwv dGQ+YWLeAFT8jMuaMMiuYBHxvW 5vFPEnN2u4WmIjEyL2SBukJ3Cl pdQ8NRMftKQqXFPeaFFCyF9b bizkz8yospjxOzKxKWWrUKr4QJ s2ROLrsTrmNiBzLHX1GlE6ZDY4 iCMxjH6bzSdbzntyxS8jDpt+ NGN0UZZ8RY37NB05G6CfSuxdhP FibGU+PHRhYmxlIHdpZHRoPScx WDLcNyAibRuaQN3qNr7kTQQl LWNvbGxh (more content not included)... [facility] Consent for Procedure/Surger yon 07-17-2022 Consent for Procedure/Surgery [id number]#1.00CD:127 [facility] Consent for Treatmenton 03-2 Consent for Treatment [id number]#1.00CD:127 [facility] IntraOperative Documentson 0 07-17-2022 IntraOperative Documents [id number]#1.00CD:127 [facility] Main OR Intraoperative Recor don 07-17-2022 Main OR Intraoperative Record IntraOp Document Type FTURO Summary Primary Physician: Iván TOMLIN MD Finalized Date/Time: 07/17/22 09:10:19 Pt. Name: PEG HADLEY/Sex: 1950 Female Med Rec #: [id number] Physician: Iván TOMLIN MD Financial #: [id number] Pt. Type: O Room/Bed: / Admit/Disch: 07/17/22 08:15:03 - Institution: Case Times FTURO Entry 1 Patient Times In Room 07/17/22 09:02:00 Out Room 07/17/22 09:15:00 Procedure Times Start 07/17/22 09:05:00 Stop 07/17/22 09:10:00 Anesthesia Times Last Modified By: DEDRA Noe RN, Ruthann 07/17/22 09:08:13 Case Attendance FTURO Entry 1 Entry 2 Entry 3 Case Attendee KELLY BLACKMON, Iván Noe RN, KRISTIANOR, Lorraine BARNES, Palma Ko Role Performed Surgeon - Primary Medical Administrative - Primary Scrub - Primary Time In 07/17/22 09:02:00 07/17/22 09:02:00 07/17/22 09:02:00 Time Out 07/17/22 09:15:00 07/17/22 09:15:00 07/17/22 09:15:00 Procedure CYSTOSCOPY LOCAL(.) CYSTOSCOPY LOCAL(.) CYSTOSCOPY LOCAL(.) Comments Last Modified By: DEDRA Noe RN, DEDRA Noe RN, Stocker RN, CNOR, Ruthann 07/17/22 Stefani 07/17/22 Stefani 07/17/22 09:08:16 09:08:16 [...] TOMLIN MD, Verified (If Participants Kusum BELL, DEDRA, Applicable) Lorraine Ko CST, Julie A Time [...] DEDRA Noe RN, Ruthann 07/17/22 09:10 Normal [facility] Main OR Preoperative Recordo n 07-17-2022 Main OR Preoperative Record Holding Area Document Type FTURO Summary Primary Physician: Iván TOMLIN MD Finalized Date/Time: 07/17/22 09:04:54 Pt. Name: PEG HADLEY/Sex: 1950 Female Med Rec #: [id number] Physician: Iván TOMLIN MD Financial #: [id number] Pt. Type: O Room/Bed: / Admit/Disch: 07/17/22 [...] No Pain Comment: na Skin Integrity Intact, [place], Warm, & Dry Vitals - EU Blood Pressure 135/82 Pulse 65 bpm Respirations 16 br/min SPO2 96 % RN Reviewed Yes Last Modified By: DEDRA Noe RN, Ruthann 07/17/22 09:04:49 General Comments: temp:36.4 Finalized By: DEDRA Noe RN, Ruthann Document Signatures Signed By: Maeve Florian LPN 07/17/22 08:41 DEDRA Noe RN, Ruthann 07/17/22 09:04 Normal [facility] Operative Reporton Operative Report Patient: ANURADHA HADLEY Age: 72 years Sex: Female : 1950 Associated Diagnoses: None Author: Iván TOMLIN MD Procedure Operative Information Details: Date/ Time: 07/17/2022 09:12:00. Pre-Op Dx: Micro Hematuria - Asymptomatic - R31.21. Post-Op Dx: Same. Anesthesia Type: Local. Procedure: Local Cystoscopy. Complications: None. Risks/Benefits/Informed Consent: Surgical risks, benefits, details of the [...] follow-up on a as needed basis.. Normal [facility] Comment on above: Result Comment: Elec tronically Signed By: KELLY BLACKMON, Iván Oates\Date and Time Signed: 07/17/22 09:13 EDT RAD - Ultrasound [facility] RAD - Ultrasound Report [id number]:127 Normal [facility] Urine Cytology ([facility])on 0 07-09-2022 Urine Cytology Diagnosis Info Invalid Interpretation Code [facility] Comment on above: Result Comment: A:Ur ine,Urine:Voided Interpretation - MicroScopic Description - Adequacy - Gross Description Site ID:A color Light Yellow fixative Alcohol Specimen designated Urine received in alcohol preservative and labeled with the patient?s name, consists of 40ml clear light yellow fluid. Electronically signed by : on: 07/09/2022 15:10:50 Performed By: #### 1 [id number] ####[facility] [address] [place] [address] US KIDNEYSon 07-07-2022 US KIDNEYS EXAM: US [...] by: DANIELLE CAM Date: 2022-07-07 10:33 Normal [facility] Formson 07-03-2022 Forms [id number]#[id number]:127 Normal [facility] Physician Referralon 023 Physician Referral [id number]#[id number]:127 Normal [facility] Pre-Certification Formon Pre-Certification Form [id number]#[id number]:127 Normal [facility] Ambulatory Visit Summaryon 0 07-02-2022 Ambulatory Visit Summary PEG HADLEY :1950 Visit Date:07/02/2022 Ambulatory Visit Instructions Your Diagnosis Microscopic hematuria Tests Performed Urnls Dip Stick Auto w/o Microscopy POC 93863 US Renal -- Results Pending -- Please [...] Tab) fluticasone nasal (fluticasone 0.05 mg/inh Nasal [place]) hyoscyamine (hyoscyamine 0.125 mg oral Tab) levothyroxine [...] zolmitriptan (Zomig 5 mg Tab) Procedures Performed Esophagogastroduodenoscopy (01/08/2019), Abdominal hysterectomy, Appendectomy, Colonoscopy. Discharge Vitals Heart Rate (Peripheral) 71 Blood Pressure 128/88 Height 162 cm Height 64 in Weight 74 kg Weight 162.8 lb BMI 28.2 What to do next You Need to Schedule the Following Appointments Follow Up with KELLY BLACKMON, SHI Mckeon When: Where: [facility] [address] , [place] [address]- Medications What How Much When Instructions Unchanged [...] fluticasone nasal (fluticasone 0.05 mg/ inh Nasal [place]) 2 Sprays Nasal Inhalation Every day each [...] Urnls Dip Stick Auto w/o Microscopy POC 92730 (07/02/2022) Bilirubin Urine Dipstick - Negative Blood Urine Dipstick - Trace-lysed Glucose Urine Dipstick - Negative Ketones Urine Dipstick - Negative Leukocytes Urine Dipstick - Negative Nitrite Urine Dipstick - Negative Protein Urine Dipstick - Negative Specific [place] Urine Dipstick - >=1.030 Urine Appearance Urine [...] include: ? (more content not included)... Normal [facility] Patient Educationon 07-03-19 Patient Education Urology Hematuria, [...] these instructions at home: Medicines ? Take lbok-cvb-cbnzpxm and prescription medicines only as told by [...] the blood stops without treatment. ? Take okxe-sys-nuztsed and prescription medicines only as told by your health care provider. ? Drink enough fluid to keep your urine clear or pale yellow. This information is not intended to replace advice given to you by your health care provider. Make sure you discuss any questions you have with your health care provider. Document Released: 04/08/2006 Document Revised: 09/02/2019 Document Reviewed: 05/11/2017 [employer] Patient Education ? 2019 [employer] Normal [facility] Urine Cytology ([facility])on 0 07-02-2022 Method of Extraction Voided Normal [facility] Comment on above: Performed By: #### 1 [id number] ####[facility] [address] [place] [address] Number of Jars 1 Invalid Interpretation Code [facility] Comment on above: Performed By: #### 1 [id number] ####[facility] [address] [place] [address] Specimen Urine Normal [facility] Comment on above: Performed By: #### 1 [id number] ####[facility] [address] [place] [address] Type of Service Technical Only Normal [facility] Comment on above: Performed By: #### 1 [id number] ####[facility] [address] [place] [address] PTH INTACTon 05-22-2022 PTH, Intact 75 pg/mL Critically high 15-65 [facility] Comment on above: Performed By: #### P THINT #### [facility] [address] [address] [address] Andrea Mccarthy FERRITINon 05-21-2022 Ferritin [Mass/Vol] 124.0 ng/mL Normal 8.0-252.0 [facility] Comment on above: Performed By: #### U KIM, MG, PHOS #### [facility] [address] [place] [address] Dr. Andrea Mccarthy HEMOGRAM AND PLATELon 2022 Hematocrit (Bld) [Volume fraction] 40.1 % Normal 36.0-48.0 [facility] Comment on above: Performed By: #### U KIM, MG, PHOS #### [facility] [address] [place] [address] Dr. Andrea Mccarthy Hemoglobin (Bld) [Mass/Vol] 13.2 g/dL Normal 12.0-16.0 [facility] Comment on above: Performed By: #### U KIM, MG, PHOS #### [facility] [address] [place] [address] Dr. Andrea Mccarthy MCH (RBC) [Entitic mass] 28.0 pg Normal 26.7-34.0 [facility] Comment on above: Performed By: #### U KIM, MG, PHOS #### [facility] [address] [place] [address] Dr. Andrea Mccarthy MCHC (RBC) [Mass/Vol] 32.9 g/dL Normal 29.9-35.2 [facility] Comment on above: Performed By: #### U KIM, MG, PHOS #### [facility] [address] [place] [address] Dr. Andrea Mccarthy MCV (RBC) [Entitic vol] 85.1 fL Normal 81.0-99.0 [facility] Comment on above: Performed By: #### U KIM, MG, PHOS #### [facility] [address] [place] [address] Dr. Andrea Mccarthy PLT 255 103/ul Normal 150-450 [facility] Comment on above: Performed By: #### U KIM, MG, PHOS #### [facility] [address] [place] [address] Dr. Andrea Mccarthy RBC 4.71 106/ul Normal 4.20-5.40 [facility] Comment on above: Performed By: #### U KIM, MG, PHOS #### [facility] [address] [place] [address] Dr. Andrea Mccarthy WBC 5.9 103/ul Normal 4.0-11.0 [facility] Comment on above: Performed By: #### U KIM, MG, PHOS #### [facility] [address] [place] [address] Dr. Andrea Mccarthy IRON AND TIBCon 05-21-2022 % SATURATION 18.5 % Normal [facility] Comment on above: Performed By: #### U KIM, MG, PHOS #### [facility] [address] [place] [address] Dr. Andrea Mccarthy Iron [Mass/Vol] 51.0 ug/dL Normal 50.0-170.0 [facility] Comment on above: Performed By: #### U KIM, MG, PHOS #### [facility] [address] [place] [address] Dr. Andrea Mccarthy TIBC DIRECT 276.0 ug/dL Normal 250.0-450.0 [facility] Comment on above: Performed By: #### U KIM, MG, PHOS #### [facility] [address] [place] [address] Dr. Andrea Mccarthy MAGNESIUMon 05-21-2022 Magnesium [Mass/Vol] 1.8 mg/dL Normal 1.8-2.4 [facility] Comment on above: Performed By: #### U KIM, MG, PHOS #### [facility] [address] [place] [address] Dr. Andrea Mccarthy RENAL FUNCTION PANELon 05-21 Albumin [Mass/Vol] 3.5 g/dL Normal 3.4-5.0 [facility] Comment on above: Performed By: #### U KIM, MG, PHOS #### [facility] [address] [place] [address] Dr. Andrea Mccarthy Calcium [Mass/Vol] 8.5 mg/dL Normal 8.5-10.1 [facility] Comment on above: Performed By: #### U KIM, MG, PHOS #### [facility] [address] [address] [address] Andrea Mccarthy Chloride [Moles/Vol] 104 mmol/L Normal 98-107 [facility] Comment on above: Performed By: #### U KIM, MG, PHOS #### [facility] [address] [address] [address] Andrea Mccarthy CO2 [Moles/Vol] 29.6 mmol/L Normal 21.0-32.0 [facility] Comment on above: Performed By: #### U KIM, MG, PHOS #### [facility] [address] [address] [address] Andrea Mccarthy Creatinine [Mass/Vol] 1.23 mg/dL Critically high 0.55-1.02 [facility] Comment on above: Performed By: #### U KIM, MG, PHOS #### [facility] [address] [address] [address] Andrea Mccarthy EGFR-AF CYMRAES 52 mL/min/1.73m2 Critically low >=60 [facility] Comment on above: Performed By: #### U KIM, MG, PHOS #### [facility] [address] [address] [address] Andrea Mccarthy EGFR-NON AF CYMRAES 43 mL/min/1.73m2 Critically low >=60 [facility] Comment on above: Performed By: #### U KIM, MG, PHOS #### [facility] [address] [address] [address] Andrea Mccarthy Glucose [Mass/Vol] 92 mg/dL Normal 74-106 [facility] Comment on above: Performed By: #### U KIM, MG, PHOS #### [facility] [address] [address] [address] Andrea Mccarthy Phosphate [Mass/Vol] 3.3 mg/dL Normal 2.6-4.7 [facility] Comment on above: Performed By: #### U KIM, MG, PHOS #### [facility] [address] [address] [address] Andrea Mccarthy Potassium [Moles/Vol] 3.9 mmol/L Normal 3.5-5.1 [facility] Comment on above: Performed By: #### U KIM, MG, PHOS #### [facility] [address] [place] [address] Dr. Andrea Mccarthy Sodium [Moles/Vol] 141 mmol/L Normal 136-145 [facility] Comment on above: Performed By: #### U KIM, MG, PHOS #### [facility] [address] [place] [address] Dr. Andrea Mccarthy Urea nitrogen [Mass/Vol] 25.0 mg/dL Critically high 7.0-18.0 [facility] Comment on above: Performed By: #### U KIM, MG, PHOS #### [facility] [address] [place] [address] Dr. Andrea Mccarthy UA RANDOM W/MICROSCOPICon BACTERIA NONE SEEN Normal NONE SEEN [facility] Comment on above: Performed By: #### U AMIC #### [facility] [address] [place] [address] Dr. Andrea Mccarthy Bilirubin Ql (U) Negative Normal NEGATIVE [facility] Comment on above: Performed By: #### U AMIC #### [facility] [address] [place] [address] Dr. Andrea Mccarthy CAST NONE SEEN Normal NONE SEEN [facility] Comment on above: Performed By: #### U AMIC #### [facility] [address] [place] [address] Dr. Andrea Mccarthy Clarity (U) CLEAR Normal CLEAR [facility] Comment on above: Performed By: #### U AMIC #### [facility] [address] [place] [address] Dr. Andrea Mccarthy Color (U) YELLOW Normal YELLOW [facility] Comment on above: Performed By: #### U AMIC #### [facility] [address] [place] [address] Dr. Andrea Mccarthy Crystals LM Nom (Urine sed) NONE SEEN Normal NONE SEEN [facility] Comment on above: Performed By: #### U AMIC #### [facility] [address] [address] [address] Andrea Mccarthy Epithelial cells LM Ql (Urine sed) FEW Abnormal NONE SEEN /RARE [facility] Comment on above: Performed By: #### U AMIC #### [facility] [address] [place] [address] Dr. Andrea Mccarthy Glucose Ql (U) Negative Normal NEGATIVE [facility] Comment on above: Performed By: #### U AMIC #### [facility] [address] [address] [address] Andrea Mccarthy Hemoglobin Ql (U) TRACE-INTACT Abnormal NEGATIVE [facility] Comment on above: Performed By: #### U AMIC #### [facility] [address] [place] [address] Dr. Andrea Mccarthy Ketones Ql (U) Negative Normal NEGATIVE [facility] Comment on above: Performed By: #### U AMIC #### [facility] [address] [place] [address] Dr. Andrea Mccarthy LEUKOCYTES Negative Normal NEGATIVE [facility] Comment on above: Performed By: #### U AMIC #### [facility] [address] [place] [address] Dr. Andrea Mccarthy MUCOUS TRACE Abnormal NONE SEEN [facility] Comment on above: Performed By: #### U AMIC #### [facility] [address] [place] [address] Dr. Andrea Mccarthy Nitrite Ql (U) Negative Normal NEGATIVE [facility] Comment on above: Performed By: #### U AMIC #### [facility] [address] [place] [address] Dr. Andrea Mccarthy pH (U) 5.0 [pH] Normal 5-9 [facility] Comment on above: Performed By: #### U AMIC #### [facility] [address] [place] [address] Dr. Andrea Mccarthy RBC 0-2 Normal 0-2 [facility] Comment on above: Performed By: #### U AMIC #### [facility] [address] [place] [address] Dr. Andrea Mccarthy SPEC GRAVITY 1.025 Normal 1.005-<=1.0 25 [facility] Comment on above: Performed By: #### U AMIC #### [facility] [address] [place] [address] Dr. Andrea Mccarthy UA PROTEIN Negative Normal NEGATIVE/ TRACE [facility] Comment on above: Performed By: #### U AMIC #### [facility] [address] [place] [address] Dr. Andrea Mccarthy Urobilinogen Qn (U) 0.2 {Mikel'U}/dL Normal 0.2 - 1. 0 [facility] Comment on above: Performed By: #### U AMIC #### [facility] [address] [place] [address] Dr. Andrea Mccarthy WBC NONE SEEN Normal NONE SEEN [facility] Comment on above: Performed By: #### U AMIC #### [facility] [address] [place] [address] Dr. Andrea Mccarthy URINE T PROTEIN CREAT RATIOo n 05-21-2022 Protein (U) [Mass/Vol] 21.5 mg/dL Critically high <=12.0 [facility] Comment on above: Performed By: #### U KIM, MG, PHOS #### [facility] [address] [place] [address] Dr. Andrea Mccarthy UR PROT CREAT RAT 0.15 Normal [facility] Comment on above: Performed By: #### U KIM, MG, PHOS #### [facility] [address] [place] [address] Dr. Andrea Mccarthy URINE CREAT 144.81 mg/dL Normal 20.00-300.0 0 [facility] Comment on above: Performed By: #### U KIM, MG, PHOS #### [facility] [address] [place] [address] Dr. Andrea Mccrathy VIT B12 AND FOLATEon 023 Cobalamin (Vitamin B12) [Mass/Vol] 1425.0 pg/mL Critically high 193.0-986.0 [facility] Comment on above: Performed By: #### U KIM, MG, PHOS #### [facility] [address], [place] [address] Dr. Andrea Mccarthy FOLATE 22.60 ng/mL Normal 8.60-58.90 [facility] Comment on above: Performed By: #### U KIM, MG, PHOS #### [facility] [address], [place] [address] SINUSES WO CONon 01-02-[address] SINUSES WO CON EXAMINATION: CT SINU SES WO CON HISTORY: Chronic sinusitis COMPARISON: CT [...] STEPHEN ROBLES Date: 2022-01-01 07:30 Normal [facility] INSULINon 11-15-2021 Insulin 9.0 uIU/mL Normal 2.6-24.9 [facility] Comment on above: Performed By: #### I NSULIN #### [facility] [address], [place] [address] Dr. Andrea Mccarthy PTH INTACTon 11-15-2021 PTH, Intact 43 pg/mL Normal 15-65 [facility] Comment on above: Performed By: #### U KIM, MG, PHOS #### [facility] [address] [address] [address] Andrea Mccarthy VIT D 25-[place] LABC[facility]Pon 2021 Vitamin D, 25-Hydroxy 85.4 ng/mL Normal 30.0-100.0 [facility] Comment on above: Result Comment: Samina min D deficiency has been defined by the [place] [employer] and an Endocrine Society practice guideline as a level of serum 25-OH vitamin D less than 20 ng/mL (1,2). The Endocrine Society went on to further define vitamin D insufficiency as a level between 21 and 29 ng/mL (2). 1. IOM ([place] of [employer]). 2010. Dietary reference intakes for calcium and D. [place]: The National Academies Press. 2. Dagoberto PAUL, Rachel GARDNER, Edilson MARTINEZ, et al. Evaluation, treatment, and prevention of vitamin D deficiency: an Endocrine Society clinical practice guideline. JCEM. 2010; 96(7):1911-30. Performed By: #### V ITADLC #### [facility] [address] [place] [address] Dr. Andrea Mccarthy CBC AUTO DIFFon 11-14-2021 BASO # 0.0 103/ul Normal 0.0-0.1 [facility] Comment on above: Performed By: #### U KIM, MG, PHOS #### [facility] [address] [address] [address] Andrea Mccarthy Basophils/100 WBC (Bld) 0.6 % Normal 0.2-2.0 [facility] Comment on above: Performed By: #### U KIM, MG, PHOS #### [facility] [address] [address] [address] Andrea Mccarthy EO # 0.2 103/ul Normal 0.0-0.7 [facility] Comment on above: Performed By: #### U KIM, MG, PHOS #### [facility] [address] [address] [address] Andrea Mccarthy Eosinophils/100 WBC (Bld) 2.4 % Normal 0.9-7.0 [facility] Comment on above: Performed By: #### U KIM, MG, PHOS #### [facility] [address] [place] [address] Dr. Andrea Mccarthy Erythrocyte distribution width (RBC) [Ratio] 14.0 % Normal 11.0-15.0 [facility] Comment on above: Performed By: #### U KIM, MG, PHOS #### [facility] [address] [place] [address] Dr. Andrea Mccarthy Hematocrit (Bld) [Volume fraction] 35.7 % Critically low 36.0-48.0 [facility] Comment on above: Performed By: #### U KIM, MG, PHOS #### [facility] [address] [place] [address] Dr. Andrea Mccarthy Hemoglobin (Bld) [Mass/Vol] 11.2 g/dL Critically low 12.0-16.0 [facility] Comment on above: Performed By: #### U KIM, MG, PHOS #### [facility] [address] [place] [address] Dr. Andrea Mccarthy IG # 0.02 10e3/ul Normal 0.00-0.03 [facility] Comment on above: Performed By: #### U KIM, MG, PHOS #### [facility] [address] [place] [address] Dr. Andrea Mccarthy IG % 0.3 % Normal 0.0-0.5 [facility] Comment on above: Performed By: #### U KIM, MG, PHOS #### [facility] [address] [place] [address] Dr. Andrea Mccarthy LYMPH # 1.8 103/ul Normal 1.2-3.8 [facility] Comment on above: Performed By: #### U KIM, MG, PHOS #### [facility] [address] [place] [address] Dr. Andrea Mccarthy Lymphocytes/100 WBC (Bld) 24.9 % Normal 20.5-60.0 [facility] Comment on above: Performed By: #### U KIM, MG, PHOS #### [facility] [address] [place] [address] Dr. Andrea Mccarthy MANUAL DIFF REQ NO Normal [facility] Comment on above: Performed By: #### U KIM, MG, PHOS #### [facility] [address] [address] [address] Andrea Mccarthy MCH (RBC) [Entitic mass] 27.3 pg Normal 26.7-34.0 [facility] Comment on above: Performed By: #### U KIM, MG, PHOS #### [facility] [address] [address] [address] Andrea Mccarthy MCHC (RBC) [Mass/Vol] 31.4 g/dL Normal 29.9-35.2 [facility] Comment on above: Performed By: #### U KIM, MG, PHOS #### [facility] [address] [place] [address] Dr. Andrea Mccarthy MCV (RBC) [Entitic vol] 87.1 fL Normal 81.0-99.0 [facility] Comment on above: Performed By: #### U KIM, MG, PHOS #### [facility] [address] [address] [address] Andrea Mccarthy MONO # 0.5 103/ul Normal 0.3-0.8 [facility] Comment on above: Performed By: #### U KIM, MG, PHOS #### [facility] [address] [place] [address] Dr. Andrea Mccarthy Monocytes/100 WBC (Bld) 7.0 % Normal 1.7-12.0 [facility] Comment on above: Performed By: #### U KIM, MG, PHOS #### [facility] [address] [place] [address] Dr. Andrea Mccarthy NEUT # 4.7 103/ul Normal 1.4-6.5 [facility] Comment on above: Performed By: #### U KIM, MG, PHOS #### [facility] [address] [place] [address] Dr. Andrea Mccarthy Neutrophils/100 WBC (Bld) 64.8 % Normal 43.0-75.0 [facility] Comment on above: Performed By: #### U KIM, MG, PHOS #### [facility] [address] [address] [address] Andrea Mccarthy Platelet mean volume (Bld) [Entitic vol] 10.1 fL Normal 9.5-13.5 [facility] Comment on above: Performed By: #### U KIM, MG, PHOS #### [facility] [address] [address] [address] Andrea Mccarthy PLT 309 103/ul Normal 150-450 [facility] Comment on above: Performed By: #### U KIM, MG, PHOS #### [facility] [address] [address] [address] Andrea Mccarthy RBC 4.10 106/ul Critically low 4.20-5.40 [facility] Comment on above: Performed By: #### U KIM, MG, PHOS #### [facility] [address] [place] [address] Dr. Andrea Mccarthy WBC 7.2 103/ul Normal 4.0-11.0 [facility] Comment on above: Performed By: #### U KIM, MG, PHOS #### [facility] [address] [address] [address] Andrea Mccarthy FREE THYROXINE INDEX T7on -2021 FTI 4.14 Normal 1.30-4.50 [facility] Comment on above: Performed By: #### U KIM, MG, PHOS #### [facility] [address] [place] [address] Dr. Andrea Mccarthy T3U 36.0 % Normal 30.0-39.0 [facility] [place] Comment on above: Performed By: #### U KIM, MG, PHOS #### [facility] [address] [place] [address] Dr. Andrea Mccarthy T4 [Mass/Vol] 11.50 ug/dL Normal 4.80-13.90 [facility] Comment on above: Performed By: #### U KIM, MG, PHOS #### [facility] [address] [place] [address] Dr. Andrea Mccarthy GLYCOHEMOGLOBIN A1Con 2021 ADA RECOMMENDATION SEE BELOW Normal [facility] Comment on above: Result Comment: ADA RECOMMENDED LIMIT 4.0 - 6.0 ADA THERAPEUTIC TARGET < 7.0 ACTION SUGGESTED > 7.0 Performed By: #### A 1C #### [facility] [address] [address] [address] Andrea Mccarthy Glucose [Mass/Vol] 137 mg/dL Normal [facility] Comment on above: Performed By: #### A 1C #### [facility] [address] [address] [address] Andrea Mccarthy HbA1c (Bld) [Mass fraction] 6.4 % Critically high 4.5-6.2 [facility] Comment on above: Performed By: #### A 1C #### [facility] [address] [place] [address] Dr. Andrea Mccarthy IRONon 11-14-2021 Iron [Mass/Vol] 34.0 ug/dL Critically low 50.0-170.0 [facility] Comment on above: Performed By: #### U KIM, MG, PHOS #### [facility] [address] [address] [address] Andrea Mccarthy LIPID PROFILEon 11-14-2021 CHOL-HDL RATIO NORM SEE BELOW Normal [facility] Comment on above: Result Comment: 3.3 - 4.4 LOW RISK 4.4 - 7.1 AVERAGE RISK 7.1 - 11.0 MODERATE RISK >11.0 HIGH RISK Performed By: #### L IPID, TSH, T7, CMP #### [facility] [address] [address] [address] Andrea Mccarthy Cholesterol [Mass/Vol] 152 mg/dL Normal <=200 [facility] Comment on above: Performed By: #### L IPID, TSH, T7, CMP #### [facility] [address] [address] [address] Andrea Mccarthy Cholesterol in HDL [Mass/Vol] 51 mg/dL Normal 40-60 [facility] Comment on above: Performed By: #### L IPID, TSH, T7, CMP #### [facility] [address] [address] [address] Andrea Mccarthy Cholesterol in LDL [Mass/Vol] 83.4 mg/dL Normal [facility] Comment on above: Performed By: #### L IPID, TSH, T7, CMP #### [facility] [address] [place] [address] Dr. Andrea Mccarthy Cholesterol.total/Chol esterol in HDL [Mass ratio] 3.0 {ratio} Normal [facility] Comment on above: Performed By: #### L IPID, TSH, T7, CMP #### [facility] [address] [place] [address] Dr. Andrea Mccarthy HDL NORMAL > or = 60 mg/dl - LO W CARDIOVASCULAR RISK <40 mg/dl - HIGH CARDIOVASCULAR RISK Normal [facility] Comment on above: Performed By: #### L IPID, TSH, T7, CMP #### [facility] [address] [place] [address] Dr. Andrea Mccarthy LDL CALC NORMAL SEE BELOW Normal [facility] Comment on above: Result Comment: <100 mg/dl OPTIMAL 100 - 129 mg/dl NEAR OR ABOVE OPTIMAL 130 - 159 mg/dl BORDERLINE HIGH 160 - 189 mg/dl HIGH >190 mg/dl VERY HIGH Performed By: #### L IPID, TSH, T7, CMP #### [facility] [address] [place] [address] Dr. Andrea Mccarthy Triglyceride [Mass/Vol] 88 mg/dL Normal <=150 [facility] Comment on above: Performed By: #### L IPID, TSH, T7, CMP #### [facility] [address] [place] [address] Dr. Andrea Mccarthy VLDL CALC 17.6 mg/dL Normal [facility] Comment on above: Performed By: #### L IPID, TSH, T7, CMP #### [facility] [address] [place] [address] Dr. Andrea Mccarthy MAGNESIUMon 11-14-2021 Magnesium [Mass/Vol] 2.2 mg/dL Normal 1.8-2.4 [facility] Comment on above: Performed By: #### U KIM, MG, PHOS #### [facility] [address] [place] [address] Dr. Andrea Mccarthy PHOSPHORUSon 11-14-2021 Phosphate [Mass/Vol] 3.0 mg/dL Normal 2.6-4.7 [facility] Comment on above: Performed By: #### U KIM, MG, PHOS #### [facility] [address] [place] [address] Dr. Andrea Mccarthy PROF 14(COMP METB)on 022 Albumin [Mass/Vol] 3.2 g/dL Critically low 3.4-5.0 [facility] Comment on above: Performed By: #### L IPID, TSH, T7, CMP #### [facility] [address] [place] [address] Dr. Andrea Mccarthy Albumin/Globulin [Mass ratio] 0.8 {ratio} Normal [facility] Comment on above: Performed By: #### L IPID, TSH, T7, CMP #### [facility] [address] [place] [address] Dr. Andrea Mccarthy ALP [Catalytic activity/Vol] 51 U/L Normal 46-116 [facility] Comment on above: Performed By: #### L IPID, TSH, T7, CMP #### [facility] [address] [place] [address] Dr. Andrea Mccarthy ALT [Catalytic activity/Vol] 13 U/L Critically low 14-59 [facility] Comment on above: Performed By: #### L IPID, TSH, T7, CMP #### [facility] [address] [place] [address] Dr. Andrea Mccarthy Anion gap [Moles/Vol] 11.4 mmol/L Normal [facility] Comment on above: Performed By: #### L IPID, TSH, T7, CMP #### [facility] [address] [place] [address] Dr. Andrea Mccarthy AST [Catalytic activity/Vol] 9 U/L Critically low 15-37 [facility] Comment on above: Performed By: #### L IPID, TSH, T7, CMP #### [facility] [address] [place] [address] Dr. Andrea Mccarthy Bilirubin [Mass/Vol] 0.3 mg/dL Normal 0.2-1.0 [facility] Comment on above: Performed By: #### L IPID, TSH, T7, CMP #### [facility] [address] [address] [address] Andrea Mccarthy Calcium [Mass/Vol] 8.4 mg/dL Critically low 8.5-10.1 [facility] Comment on above: Performed By: #### L IPID, TSH, T7, CMP #### [facility] [address] [address] [address] Andrea Mccarthy Chloride [Moles/Vol] 105 mmol/L Normal 98-107 [facility] Comment on above: Performed By: #### L IPID, TSH, T7, CMP #### [facility] [address] [place] [address] Dr. Andrea Mccarthy CO2 [Moles/Vol] 27.7 mmol/L Normal 21.0-32.0 [facility] Comment on above: Performed By: #### L IPID, TSH, T7, CMP #### [facility] [address] [place] [address] Dr. Andrea Mccarthy Creatinine [Mass/Vol] 1.31 mg/dL Critically high 0.55-1.02 [facility] Comment on above: Performed By: #### L IPID, TSH, T7, CMP #### [facility] [address] [place] [address] Dr. Andrea Mccarthy EGFR-AF CYMRAES 49 mL/min/1.73m2 Critically low >=60 [facility] Comment on above: Performed By: #### L IPID, TSH, T7, CMP #### [facility] [address] [address] [address] Andrea Mccarthy EGFR-NON AF CYMRAES 40 mL/min/1.73m2 Critically low >=60 [facility] Comment on above: Performed By: #### L IPID, TSH, T7, CMP #### [facility] [address] [address] [address] Andrea Mccarthy Globulin (S) [Mass/Vol] 3.9 g/dL Normal [facility] Comment on above: Performed By: #### L IPID, TSH, T7, CMP #### [facility] [address] [address] [address] Andrea Mccarthy Glucose [Mass/Vol] 97 mg/dL Normal 74-106 [facility] Comment on above: Performed By: #### L IPID, TSH, T7, CMP #### [facility] [address] [place] [address] Dr. Andrea Mccarthy Potassium [Moles/Vol] 4.1 mmol/L Normal 3.5-5.1 [facility] Comment on above: Performed By: #### L IPID, TSH, T7, CMP #### [facility] [address] [place] [address] Dr. Andrea Mccarthy Protein [Mass/Vol] 7.1 g/dL Normal 6.4-8.2 [facility] Comment on above: Performed By: #### L IPID, TSH, T7, CMP #### [facility] [address] [place] [address] Dr. Andrea Mccarthy Sodium [Moles/Vol] 140 mmol/L Normal 136-145 [facility] Comment on above: Performed By: #### L IPID, TSH, T7, CMP #### [facility] [address] [place] [address] Dr. Andrea Mccarthy Urea nitrogen [Mass/Vol] 23.0 mg/dL Critically high 7.0-18.0 [facility] Comment on above: Performed By: #### L IPID, TSH, T7, CMP #### [facility] [address] [place] [address] Dr. Andrea Mccarthy Urea nitrogen/Creatinine [Mass ratio] 17.6 mg/mg Normal [facility] Comment on above: Performed By: #### L IPID, TSH, T7, CMP #### [facility] [address] [place] [address] Dr. Andrea Mccarthy TSHon 11-14-2021 TSH 0.032 uIU/mL Critically low 0.358-3.740 [facility] Comment on above: Performed By: #### U KIM, MG, PHOS #### [facility] [address] [place] [address] Dr. Andrea Mccarthy UA RANDOM W/MICROSCOPICon BACTERIA NONE SEEN Normal NONE SEEN [facility] Comment on above: Performed By: #### U KIM, MG, PHOS #### [facility] [address] [place] [address] Dr. Andrea Mccarthy Bilirubin Ql (U) Negative Normal NEGATIVE [facility] Comment on above: Performed By: #### U KIM, MG, PHOS #### [facility] [address] [place] [address] Dr. Andrea Mccarthy CAST NONE SEEN Normal NONE SEEN [facility] Comment on above: Performed By: #### U KIM, MG, PHOS #### [facility] [address] [place] [address] Dr. Andrea Mccarthy Clarity (U) CLEAR Normal CLEAR [facility] Comment on above: Performed By: #### U KIM, MG, PHOS #### [facility] [address] [place] [address] Dr. Andrea Mccarthy Color (U) YELLOW Normal YELLOW [facility] Comment on above: Performed By: #### U KIM, MG, PHOS #### [facility] [address] [place] [address] Dr. Andrea Mccarthy Crystals LM Nom (Urine sed) NONE SEEN Normal NONE SEEN [facility] Comment on above: Performed By: #### U KIM, MG, PHOS #### [facility] [address] [place] [address] Dr. Andrea Mccarthy Epithelial cells LM Ql (Urine sed) FEW Abnormal NONE SEEN /RARE [facility] Comment on above: Performed By: #### U KIM, MG, PHOS #### [facility] [address] [place] [address] Dr. Andrea Mccarthy Glucose Ql (U) Negative Normal NEGATIVE [facility] Comment on above: Performed By: #### U KIM, MG, PHOS #### [facility] [address] [place] [address] Dr. Andrea Mccarthy Hemoglobin Ql (U) TRACE-INTACT Abnormal NEGATIVE [facility] Comment on above: Performed By: #### U KIM, MG, PHOS #### [facility] [address] [place] [address] Dr. Andrea Mccarthy Ketones Ql (U) Negative Normal NEGATIVE [facility] Comment on above: Performed By: #### U KIM, MG, PHOS #### [facility] [address] [place] [address] Dr. Andrea Mccarthy LEUKOCYTES Negative Normal NEGATIVE [facility] Comment on above: Performed By: #### U KIM, MG, PHOS #### [facility] [address] [place] [address] Dr. Andrea Mccarthy MUCOUS SMALL Abnormal NONE SEEN [facility] Comment on above: Performed By: #### U KIM, MG, PHOS #### [facility] [address] [place] [address] Dr. Andrea Mccarthy Nitrite Ql (U) Negative Normal NEGATIVE [facility] Comment on above: Performed By: #### U KIM, MG, PHOS #### [facility] [address] [place] [address] Dr. Andrea Mccarthy pH (U) 5.5 [pH] Normal 5-9 [facility] Comment on above: Performed By: #### U KIM, MG, PHOS #### [facility] [address] [place] [address] Dr. Andrea Mccarthy RBC 0-2 Normal 0-2 [facility] Comment on above: Performed By: #### U KIM, MG, PHOS #### [facility] [address] [place] [address] Dr. Andrea Mccarthy SPEC GRAVITY 1.020 Normal 1.005-<=1.0 25 [facility] Comment on above: Performed By: #### U KIM, MG, PHOS #### [facility] [address] [place] [address] Dr. Andrea Mccarthy UA PROTEIN Negative Normal NEGATIVE/ TRACE [facility] Comment on above: Performed By: #### U KIM, MG, PHOS #### [facility] [address] [place] [address] Dr. Andrea Mccarthy Urobilinogen Qn (U) 0.2 {Mikel'U}/dL Normal 0.2 - 1. 0 [facility] Comment on above: Performed By: #### U KIM, MG, PHOS #### [facility] [address] [place] [address] Dr. Andrea Mccarthy WBC NONE SEEN Normal NONE SEEN [facility] Comment on above: Performed By: #### U KIM, MG, PHOS #### [facility] [address] [place] [address] Dr. Andrea Mccarthy URIC ACID SERUMon 11-14-2021 Urate [Mass/Vol] 5.0 mg/dL Normal 2.6-6.0 [facility] Comment on above: Performed By: #### U KIM, MG, PHOS #### [facility] [address] [place] [address] Dr. Andrea Mccarthy URINE T PROTEIN CREAT RATIOo n 11-14-2021 Protein (U) [Mass/Vol] 22.3 mg/dL Critically high <=12.0 [facility] Comment on above: Performed By: #### U KIM, MG, PHOS #### [facility] [address] [place] [address] Dr. Andrea Mccarthy UR PROT CREAT RAT 0.15 Normal [facility] Comment on above: Performed By: #### U KIM, MG, PHOS #### [facility] [address] [place] [address] Dr. Andrea Mccarthy URINE CREAT 151.50 mg/dL Normal 20.00-300.0 0 [facility] Comment on above: Performed By: #### U KIM, MG, PHOS #### [facility] [address] [place] [address] Dr. Andrea Mccarthy Vital Signs Date Time Vital Sign Value Performing Clinician Facility 12-24-2024 11:23-0400 Diastolic blood pressure 98 mm[Hg] Yaritza Lopez SECURITY COORDINATOR-C Work Phone: [facility] 12-24-2024 11:23-0400 Heart rate 92 /min Yaritza John SECURITY COORDINATOR-C Work Phone: [facility] 12-24-2024 11:23-0400 Respiratory rate 18 /min Yaritzago Valeriomer SECURITY COORDINATOR-C Work Phone: [facility] 12-24-2024 11:23-0400 SaO2% (BldA) [Mass fraction] 98 % Yaritzago Valeriomer SECURITY COORDINATOR-C Work Phone: [facility] 12-24-2024 11:23-0400 Systolic blood pressure 133 mm[Hg] Yaritzago Valeriomer SECURITY COORDINATOR-C Work Phone: [facility] 12-24-2024 09:21-0400 Body height 162.56 cm Yaritzago Valeriomer SECURITY COORDINATOR-C Work Phone: [facility] 12-24-2024 09:21-0400 Body weight 78.01 kg Yaritzago Valeriomer SECURITY COORDINATOR-C Work Phone: [facility] 11-12-2024 11:02-0400 Body height 162.56 cm Yaritzago Valeriomer SECURITY COORDINATOR-C Work Phone: [facility] 11-12-2024 11:02-0400 Body mass index (BMI) [Ratio] 30.2 kg/m2 Yaritzago Valeriomer SECURITY COORDINATOR-C Work Phone: [facility] 11-12-2024 11:02-0400 Body temperature 97.1 [degF] Yraitza Valeriomer SECURITY COORDINATOR-C Work Phone: [facility] 11-12-2024 11:02-0400 Body weight 80 kg Yaritzago Valeriomer SECURITY COORDINATOR-C Work Phone: [facility] 11-12-2024 11:02-0400 Diastolic blood pressure 92 mm[Hg] Yaritza Valeriomer SECURITY COORDINATOR-C Work Phone: [facility] 11-12-2024 11:02-0400 Heart rate 103 /min Yaritza Valeriomer SECURITY COORDINATOR-C Work Phone: [facility] 11-12-2024 11:02-0400 Heart rate 93 /min Yaritzago Valeriomer SECURITY COORDINATOR-C Work Phone: [facility] 11-12-2024 11:02-0400 Respiratory rate 18 /min Yaritza Lopez SECURITY COORDINATOR-C Work Phone: [facility] 11-12-2024 11:02-0400 SaO2% (BldA) [Mass fraction] 98 % Yaritza Lopez SECURITY COORDINATOR-C Work Phone: [facility] 11-12-2024 11:02-0400 Systolic blood pressure 135 mm[Hg] Yaritza Valeriomer SECURITY COORDINATOR-C Work Phone: [facility] 07-17-2024 17:52-0400 Body height 162.56 cm [facility] 07-17-2024 17:52-0400 Body mass index (BMI) [Ratio] 30.5 kg/m2 [facility] 07-17-2024 17:52-0400 Body temperature 97.8 [degF] [facility] 07-17-2024 17:52-0400 Body weight 80.79 kg [facility] 07-17-2024 17:52-0400 Diastolic blood pressure 87 mm[Hg] [facility] 07-17-2024 17:52-0400 Heart rate 104 /min [facility] 07-17-2024 17:52-0400 Respiratory rate 18 /min [facility] 07-17-2024 17:52-0400 SaO2% (BldA) [Mass fraction] 94 % [facility] 07-17-2024 17:52-0400 Systolic blood pressure 130 mm[Hg] [facility] 06-29-2024 13:34-0400 Body height 162.56 cm [facility] 06-29-2024 13:34-0400 Body mass index (BMI) [Ratio] 30.2 kg/m2 [facility] 06-29-2024 13:34-0400 Body temperature 97.6 [degF] [facility] 06-29-2024 13:34-0400 Body weight 80.05 kg [facility] 06-29-2024 13:34-0400 Diastolic blood pressure 79 mm[Hg] [facility] 06-29-2024 13:34-0400 Heart rate 68 /min [facility] 06-29-2024 13:34-0400 Respiratory rate 19 /min [facility] 06-29-2024 13:34-0400 SaO2% (BldA) [Mass fraction] 97 % [facility] 06-29-2024 13:34-0400 Systolic blood pressure 141 mm[Hg] [facility] 05-12-2024 10:59-0500 Body height 162.56 cm [facility] 05-12-2024 10:59-0500 Body mass index (BMI) [Ratio] 30.2 kg/m2 [facility] 05-12-2024 10:59-0500 Body weight 80 kg [facility] 05-12-2024 10:59-0500 Diastolic blood pressure 80 mm[Hg] [facility] 05-12-2024 10:59-0500 Heart rate 87 /min [facility] 05-12-2024 10:59-0500 Respiratory rate 16 /min [facility] 05-12-2024 10:59-0500 SaO2% (BldA) [Mass fraction] 96 % [facility] 05-12-2024 10:59-0500 Systolic blood pressure 117 mm[Hg] [facility] 05-03-2024 09:59-0500 Body height 162.56 cm [facility] 05-03-2024 09:59-0500 Body mass index (BMI) [Ratio] 30 kg/m2 [facility] 05-03-2024 09:59-0500 Body temperature 97.3 [degF] [facility] 05-03-2024 09:59-0500 Body weight 79.49 kg [facility] 05-03-2024 09:59-0500 Diastolic blood pressure 82 mm[Hg] [facility] 05-03-2024 09:59-0500 Heart rate 110 /min [facility] 05-03-2024 09:59-0500 Respiratory rate 16 /min [facility] 05-03-2024 09:59-0500 SaO2% (BldA) [Mass fraction] 95 % [facility] 05-03-2024 09:59-0500 Systolic blood pressure 121 mm[Hg] [facility] 11-11-2023 12:58-0400 Body height 162.56 cm [facility] 11-11-2023 12:58-0400 Body mass index (BMI) [Ratio] 30 kg/m2 [facility] 11-11-2023 12:58-0400 Body weight 79.37 kg [facility] 11-11-2023 12:58-0400 Diastolic blood pressure 88 mm[Hg] [facility] 11-11-2023 12:58-0400 Systolic blood pressure 136 mm[Hg] [facility] 10-19-2023 12:21-0400 Body height 162.56 cm [facility] 10-19-2023 12:21-0400 Body mass index (BMI) [Ratio] 30.4 kg/m2 [facility] 10-19-2023 12:21-0400 Body temperature 98.3 [degF] [facility] 10-19-2023 12:21-0400 Body weight 80.39 kg [facility] 10-19-2023 12:21-0400 Heart rate 82 /min [facility] 10-19-2023 12:21-0400 Respiratory rate 16 /min [facility] 10-19-2023 12:21-0400 SaO2% (BldA) [Mass fraction] 96 % [facility] 05-21-2023 10:40-0500 Body height 162.56 cm Audie Dionne Other [employer] Other 05-21-2023 10:40-0500 Body mass index (BMI) [Ratio] 29.59 kg/m2 Audie Dionne Other [employer] Other 05-21-2023 10:40-0500 Body temperature 96.3 [degF] Audie Dionne Other [employer] Other 05-21-2023 10:40-0500 Body weight 78.2 kg Audie Dionne Other [employer] Other 05-21-2023 10:40-0500 Diastolic blood pressure 80 mm[Hg] Audie Dionne Other [employer] Other 05-21-2023 10:40-0500 Respiratory rate 18 /min Audie Dionne Other [employer] Other 05-21-2023 10:40-0500 SaO2% (BldA) [Mass fraction] 98 % Audie Dionne Other [employer] Other 05-21-2023 10:40-0500 Systolic blood pressure 118 mm[Hg] Audie Dionne Other [employer] Other 11-19-2022 11:00-0400 Body height 162.56 cm Audie Dionne Other [employer] Other 11-19-2022 11:00-0400 Body mass index (BMI) [Ratio] 28.9 kg/m2 Audie Dionne Other [employer] Other 11-19-2022 11:00-0400 Body temperature 96 [degF] Audie Dionne Other [employer] Other 11-19-2022 11:00-0400 Body weight 76.39 kg Audie Dionne Other [employer] Other 07-31-2023 11:00-0400 Diastolic blood pressure 81 mm[Hg] Audie Dionne Other [employer] Other 11-19-2022 11:00-0400 Respiratory rate 18 /min Audie Dionne Other [employer] Other 11-19-2022 11:00-0400 SaO2% (BldA) [Mass fraction] 98 % Audie Dionne Other [employer] Other 11-19-2022 11:00-0400 Systolic blood pressure 132 mm[Hg] Audie Dionne Other [employer] Other 07-02-2022 14:17-0400 Blood Pressure Location Iván TOM[facility] 07-02-2022 14:17-0400 Diastolic blood pressure 88 mm[Hg] Iván TOMLIN [facility] 07-02-2022 14:17-0400 Heart rate 71 /min Iv[facility] T[facility] 07-02-2022 14:17-0400 Systolic blood pressure 128 mm[Hg] Iván TOMLIN [facility] 05-29-2022 10:40-0500 Body height 162.56 cm Audie Dionne Other [employer] Other 05-29-2022 10:40-0500 Body mass index (BMI) [Ratio] 28.22 kg/m2 Audie Dionne Other [employer] Other 05-29-2022 10:40-0500 Body temperature 96.3 [degF] Audie Dionne Other [employer] Other 05-29-2022 10:40-0500 Body weight 74.57 kg Audie Dionne Other [employer] Other 05-29-2022 10:40-0500 Diastolic blood pressure 81 mm[Hg] Audie Dionne Other [employer] Other 05-29-2022 10:40-0500 Respiratory rate 18 /min Audie Dionne Other [employer] Other 05-29-2022 10:40-0500 SaO2% (BldA) [Mass fraction] 98 % Audie Dionne Other [employer] Other 05-29-2022 10:40-0500 Systolic blood pressure 125 mm[Hg] Audie Dionne Other [employer] Other 11-21-2021 12:40-0400 Body height 162.56 cm Audie Dionne Other [employer] Other 11-21-2021 12:40-0400 Body mass index (BMI) [Ratio] 28.22 kg/m2 Audie Dionne Other [employer] Other 11-21-2021 12:40-0400 Body temperature 96.8 [degF] Audie Dionne Other [employer] Other 11-21-2021 12:40-0400 Body weight 74.57 kg Audie Dionne Other [employer] Other 11-21-2021 12:40-0400 Diastolic blood pressure 79 mm[Hg] Audie Dionne Other [employer] Other 11-21-2021 12:40-0400 Respiratory rate 18 /min Audie Dionne Other [employer] Other 11-21-2021 12:40-0400 SaO2% (BldA) [Mass fraction] 98 % Audie Dionne Other [employer] Other 11-21-2021 12:40-0400 Systolic blood pressure 117 mm[Hg] Audie Dionne Other [employer] Other 06-01-2021 16:20-0500 Body height 162.56 cm Audie Dionne Other [employer] Other 06-01-2021 16:20-0500 Body mass index (BMI) [Ratio] 30.89 kg/m2 Audie Dionne Other [employer] Other 06-01-2021 16:20-0500 Body temperature 96.5 [degF] Audie Dionne Other [employer] Other 06-01-2021 16:20-0500 Body weight 81.65 kg Audie Dionne Other [employer] Other 06-01-2021 16:20-0500 Diastolic blood pressure 80 mm[Hg] Audie Dionne Other [employer] Other 06-01-2021 16:20-0500 Respiratory rate 18 /min Audie Dionne Other [employer] Other 06-01-2021 16:20-0500 SaO2% (BldA) [Mass fraction] 98 % Audie Dionne Other [employer] Other 06-01-2021 16:20-0500 Systolic blood pressure 119 mm[Hg] Audie Dionne Other [employer] Other 03-27-2021 16:20-0500 Body height 162.56 cm Audie Dionne Other [employer] Other 03-27-2021 16:20-0500 Body mass index (BMI) [Ratio] 31.55 kg/m2 Audie Dionne Other [employer] Other 03-27-2021 16:20-0500 Body temperature 96.5 [degF] Audie Dionne Other [employer] Other 03-27-2021 16:20-0500 Body weight 83.37 kg Audie Dionne Other [employer] Other 03-27-2021 16:20-0500 Diastolic blood pressure 80 mm[Hg] Audie Dionne Other [employer] Other 03-27-2021 16:20-0500 Respiratory rate 18 /min Audie Dionne Other [employer] Other 03-27-2021 16:20-0500 SaO2% (BldA) [Mass fraction] 99 % Audie Dionne Other [employer] Other 03-27-2021 16:20-0500 Systolic blood pressure 119 mm[Hg] Audie Dionne Other [facility] [employer] Other Encounters Encounter Date Encounter Type Care Provider Facility Start: 12-24-2024 End: 12-24-2024 Admission to same day surgery center Yi Durham MD -[facility] [place] Work Phone: Start: 12-24-2024 End: 12-24-2024 ambulatory Yaritza Lopez SECURITY COORDINATOR-C Work Phone: [facility] Work Phone: Start: 11-12-2024 End: 11-12-2024 ambulatory Yaritza Lopez SECURITY COORDINATOR-C Work Phone: [facility] Work Phone: Start: 11-12-2024 End: 11-12-2024 Patient encounter procedure Audie Truong MD -[facility] Work Phone: Start: 11-04-2024 Non-patient / Non-visit Audie Truong MD -[facility] Professional [facility] Work Phone: Start: 07-17-2024 End: 07-17-2024 ambulatory [facility] Work Phone: Start: 07-17-2024 End: 07-17-2024 Patient encounter procedure [facility] Physician [facility] Work Phone: Start: 06-29-2024 End: 06-29-2024 ambulatory [facility] Work Phone: Start: 06-29-2024 End: 06-29-2024 Patient encounter procedure [facility] Group[facility] Work Phone: Start: 05-12-2024 End: 05-12-2024 ambulatory [facility] Work Phone: Start: 05-12-2024 End: 05-12-2024 Patient encounter procedure [facility] Work Phone: Start: 05-05-2024 Non-patient / Non-visit [facility] Physician [facility] Work Phone: Start: 05-03-2024 End: 05-03-2024 ambulatory [facility] Work Phone: Start: 05-03-2024 End: 05-03-2024 Patient encounter procedure [facility] Physician [facility] Work Phone: Start: 11-11-2023 End: 11-11-2023 ambulatory [facility] Work Phone: Start: 11-11-2023 End: 11-11-2023 Patient encounter procedure [facility] Physician [facility] Work Phone: Start: 11-07-2023 Non-patient / Non-visit [facility] Physician [facility] Work Phone: Start: 10-19-2023 End: 10-19-2023 ambulatory [facility] Work Phone: Start: 10-19-2023 End: 10-19-2023 Patient encounter procedure [facility] Physician [facility] Work Phone: Start: 05-21-2023 End: 05-21-2023 ambulatory Audie Dionne Other [facility] [employer] Other Start: 05-21-2023 Office outpatient vi sit 25 minutes Audie Dionne [facility] Start: 11-19-2022 End: 11-19-2022 ambulatory Audie Dionne Other [facility] [employer] Other Start: 11-19-2022 Office outpatient vi sit 15 minutes Audie Dionne [facility] Start: 09-06-2022 ambulatory YARITZA LOPEZ Facility: Start: 07-17-2022 End: 07-18-2022 ambulatory Iván TOMLIN Facility:[facility] Start: 07-17-2022 End: 07-17-2022 Patient encounter procedure Iván TOMLIN [facility] Start: 07-07-2022 End: 07-08-[address] IVÁN TOMLIN . Facility:[facility] Start: 07-02-2022 End: 07-03-2022 ambulatory AUDIE DIONNE Facility:[facility] [place] Start: 07-02-2022 End: 07-02-2022 Patient encounter procedure Iván TOMLIN [facility] Start: 05-31-2022 ambulatory UADIE DIONNE Facility :[facility] Start: 05-29-2022 End: 05-29-2022 ambulatory Audie Dionne Other [employer] Other Start: 05-29-2022 Office outpatient vi sit 25 minutes Audie Dionne [facility] Start: 05-21-2022 End: 05-22-2022 ambulatory YARITZA LOPEZ Facility:[facility] Start: 12-30-2021 End: 12-31-2021 ambulatory YARITZA JOHN Facility:[facility] Start: 11-21-2021 End: 11-21-2021 ambulatory Audie Dionne Other [employer] Other Start: 11-21-2021 Office outpatient vi sit 25 minutes Audie Dionne [facility] Start: 11-14-2021 End: 11-15-2021 ambulatory AUDIE DIONNE Facility:[facility] Start: 06-02-2021 End: 06-02-2021 ambulatory Audie Dionne Other [employer] Other Start: 06-02-2021 Telephone encounter Audie Dionne [facility] Start: 06-01-2021 End: 06-01-2021 ambulatory Audie Dionne Other [employer] Other Start: 06-01-2021 Office outpatient vi sit 25 minutes Audie Dionne [facility] Start: 03-27-2021 End: 03-27-2021 ambulatory Audie Dionne Other [employer] Other Start: 03-27-2021 Office outpatient ne w 45 minutes Audie Dionne [facility] Procedures Date Procedure Procedure Detail Performing Clinician Start: 01-08-2019 Esophagogastroduodenoscopy Iván TOMLIN Abdominal hysterectomy [place] TOMLIN Appendectomy Iván TOMLIN Colonoscopy Iván TOMLIN Plan of Treatment Date Care Activity Detail Author Start: 12-24-[address] [facility] Start: 12-24-[address] [facility] Start: 12-24-2024 Bone marrow sampling [facility] Start: 11-12-[address] [facility] Work Phone: Patient Education [facility] Bone Marrow Aspiration or Biopsy Know your [facility] Work Phone: Patient referral [facility] Work Phone: Renal function 1999 panel - Serum or Plasma [facility] Renal function 1999 panel - Serum or Plasma [facility] Renal function 1999 panel - Serum or Plasma [facility] Payers Date Payer Category Payer Self-pay [id number] Private Health Insurance [id number] 1950 Unknown [id number] 2.16.8 [id number] 1950 Unknown [id number] 2.16.8 [id number] 1950 Unknown [id number] 2.16.84 [id number] 1952 Unknown [id number] 2.16.84 [id number] 1952 Unknown [id number] 2.16.84 [id number] 1952 Unknown [id number] 2.16.84 [id number] 1952 Unknown [id number] 2.16.84 [id number] 1952 Unknown [id number] 2.16.84 [id number] Unknown [id number] Unknown [id number] 2.16.8 [id number] Social History Date Type Detail [facility] Start: 1950 Sex Assigned At Female F [facility] Sex Assigned At [facility] Start: 07-02-2022 End: 12-24-2024 Tobacco smoking status Never smoked tobacco (finding) [facility] Tobacco smoking status Never [facility] Start: 05-03-2024 End: 07-17-2024 Sex Female (finding) [facility] Goals Date Patient Goal Desired Activity /State Functional Status Date Assessment Result Facility 07-02-2022 Functional Status N/A [facility] Clinical Notes 03-27-2021 to 11-12-2024 Note Date & Type Note Facility 11-12-2024 Evaluation note Diagnosis Onset Date Resolution Anemia of renal disease acute J barby 2024 11:00am CKD (chronic kidney disease) stage 3, GFR 30-59 ml/min acute November 12, 2024 11:00am Hyperlipidemia acute November 12, 2024 11:00am Hypertensive chronic kidney disease with stage 1 through stage 4 chronic ki acute November 12, 2024 11:00am Hypomagnesemia acute November 12, 2024 11:00am Microscopic hematuria acute Oct 11:00am Secondary hyperparathyroidism acute November 12, 025 11:00am Thrombocytopenia acute October 11:00am [facility] Work Phone: 1(620) 751-806701-12-2025 Evaluation note* Diagnosis Onset Date Resolution Status [...] Secondary hyperparathyroidism acute May 12, 2024 10:48am [facility] Work Phone: 1(399) 156-775001-12-2025 Evaluation note* Diagnosis Onset Date Resolution Status [...] May 122024 10:48am Microscopic hematuria acute Apr ua2024 10:48am Secondary hyperparathyroidism acute May 12, 2024 10:48am Viral URI acute June 29 1:17pm [facility] Work Phone: 1(203) 316-531601-30-2024 Evaluation note* Encounter Date Diagnosis Assessment Notes [...] stain. Monitor LFTs and lipid profile periodically. [employer] Other 07-31-2023 Evaluation note* Encounter Date Diagnosis [...] advised to have repeat in 5 yrs [employer] Other 03-28-2023 Note [id number]:127[facility] 07-17-2022 Hospital Discharge instructions Patient Education [...] Address: [facility] [address] [place] [address] Business (1) When: Unknown Comments:Call for any problems. [facility]03-28-2023 NoteCustom Cystoscopy ? Voiding after the [...] if you have a fever over 100 degrees.[facility] 07-02-2022 NoteChief Complaint Pt here for referral for microscopic hematuria [facility] [employer] New patient referral from Dr. Truong [...] [facility] [address], [place] [address]- Additional Instructions: schedule cysto, CHRIS Patient Education [...] tab(s), Oral, q6hr fluticasone 0.05 mg/inh Nasal [place], 2 spray(s), Nasal, Daily (more content not included)...[facility]:Result Comment: Electronically Signed By: Iván TOMLIN MD\.br\Date and Time Signed: 07/02/22 14:52 EDT\.br\Electronically Co-Signed By: Moira Estrada\.br\Date and Time Co-Signed: 07/02/22 14:50 [id number] Hospital Discharge instructions Patient Education 07/02/2022 14:22:27 [...] Follow these instructions at home: Medicines Take wocu-sol-tjcfwns and prescription medicines only as told by [...] or the blood stops without treatment. Take sjbc-egc-tsgkllc and prescription medicines only as told by your health care provider. Drink enough fluid to keep your urine clear or pale yellow. This information is not intended to replace advice given to you by your health care provider. Make sure you discuss any questions you have with your health care provider. Document Released: 04/08/2006 Document Revised: 09/02/2019 Document Reviewed: 05/11/2017 [employer] Patient Education 2019 [employer] Follow Up Care 05/31/2022 13:31:32 With:KELLY BLACKMON, Iván Hsu, URL Address: [facility] [address] [place] [address]- When: Unknown [facility] Evaluation note* Encounter Date Diagnosis [...] advised to have repeat in 5 yrs [employer] Other 08-02-2022 Evaluation note* Encounter Date Diagnosis [...] stain. Monitor LFTs and lipid profile periodically. [employer] Other 02-10-2022 Evaluation note* Encounter Date Diagnosis [...] stain. Monitor LFTs and lipid profile periodically. [employer] Other 12-06-2021 Evaluation note* Encounter Date Diagnosis [...] PCP. Mar, Dyslipidemia (ICD-10 - E78.5) Continue [facility]. Monitor LFTs and lipid profile periodically. [facility] [employer] Other Evaluation + Plan note Future Appointments Appointment Date:07/10/2022 11:30:00 AM Scheduled Provider: Location:[facility] Appointment Type:Urology CALL PAT FT Appointment Date:07/17/2022 08:45:00 AM Scheduled Provider: Location:[facility] Appointment Type:Urology FT Diagnostic Tests Pending * Urine Cytology ([facility]) 07/02/22 [facility] evaluation noteNo Assessments Information Available [facility] note[facility] InformationNort [employer] Other Evaluation noteNo assessment information available [facility] Work Phone: Evaluation note* Diagnosis Onset Date Resolution Status Maxillary sinusitis, acute a cute Anemia of renal disease acut e CKD (chronic kidney disease) stage 3, GFR 30-59 ml/min acute Hyperlipidemia acute [id number] acute Hypomagnesemia acute Secondary hyperparathyroidism acute [facility] Work Phone: Evaluation note* Diagnosis Onset Date Resolution Status Admit Date Anemia of renal disease acute J barby 2024 11:00am CKD (chronic kidney disease) stage 3, GFR 30-59 ml/min acute November 12, 2 025 11:00am Hyperlipidemia acute November 12, 2024 11:00am Hypertensive chronic kidney disease with stage 1 through stage 4 chronic ki acute November 12, 2024 11:00am Hypomagnesemia acute November 12, 2024 11:00am Microscopic hematuria acute Oct 11:00am Secondary hyperparathyroidism acute November 12, 2024 11:00am Thrombocytopenia acute October 11:00am [facility] Work Phone: History general Narrative - Reported* Type Description Date Medical History HTN Medical History Hypothyroidism Medical History hyperlipidemia Medical History acid reflux Medical History anxiety Medical History PRE DIABETIC Medical History mixed hypercholestolemia Medical History CKD STAGE 3 Medical History INSOMNIA Surgical History hysterectomy, total with BSO Surgical History fallopian tube removed Hospitalization History see above hx Hospitalization History N&V [employer] Other [facility] general Narrative - Reported* Type Description Date [...] History see above hx Hospitalization History N&V [employer] Other Hospital course Narrative No data available for this section [facility] Hospital Discharge instructionsAmbulatory Orders* Referral to Hematology Time Frame: 11/12/24, Location: None Selected [facility] Work Phone: Progress note No data available for this section [facility] reason for referral (narrative)No reason for referral [facility] Work Phone: Summary Purpose Family History No Family History Records Found Relationship Condition Age at Onset Recorded Date/T belle brother Hypertension Unknown father Unknown Parkinson's disease Unknown Family history of mental disorder Unknown mother Family history of mental disorder Unknown Unknown Hypertension Unknown Advance Directives No Advanced Directives Records Found Advance Directive Response Recorded Date/ Time Advance Directives No November 16 4:06pm Advance Directive Response Recorded Date/ Time Advance Directives No November 16 3:06pm Chief Complaint and Reason for Visit Chief Complaint Sinus congestion, he adache Chief Complaint Sinus congestion, he adajavi RENAL 6 month follow up Reason for Visit Maxillary sinusitis, acute Anemia of renal disease CKD (chronic kidney disease) stage 3, GFR 30-59 ml/min Hyperlipidemia [id number] Hypomagnesemia Secondary hyperparathyroidism Chief Complaint Admit Date [...] 7pm Painful rash on face, right earache [facility] 2024 5:45pm Reason for Visit Admit Date [...] 11:00am Thrombocytopenia November 12, 2024 11:0 0am Chief Complaint Admit Date RENAL 6 MONTH F/U November 12, 2024 11:0 0am D69.6 G62.89 D64.9 D50.9 N18.9 C90.00 Se ptember 2024 8:43am Additional Source Comments REASON FOR VISIT (unrecogniz ed section and content) RENAL CKD 3CKD and hyperpara thyroidismNo InformationCKD and HTNCKD and HTNCKD and HTNCKD and HTN Patient Care team informatio n (unrecognized section and content) Team Status: Active Member Role Status Dates MOUNIKA GuevaraC Primary Care Provider Active Team Status: Active Member Role Status Dates LILIANA Guevara Primary Care Provider Active Start: November 04, 2024 Audie Truong MD Attending Provider Active Start : November 04, 2024 Team Status: Inactive Member Role Status Dates LILIANA Guevara Primary Care Provider Active Start: November 12, 2024 End: November 12, 2024 Audie Truong MD Attending Provider Active Start : November 12, 2024 End: November 12, 2024 Team Status: Inactive Member Role Status Dates LILIANA Guevara Primary Care Provider Active Start: October 19, 2023 End: October 19, 2023 Marianne Ragsdale APRN Attending Provider Active Start: October 19, 2023 End: October 19, 2023 Team Status: Active Member Role Status Dates Yaritza Lopez SECURITY COORDINATOR-C Primary Care Provider Active Start: November 07, 2023 Audie Truong MD Attending Provider Active Start : November 07, 2023 Team Status: Inactive Member Role Status Dates Yaritza Lopez SECURITY COORDINATOR-C Primary Care Provider Active Start: November 11, 2023 End: November 11, 2023 Audie Truong MD Attending Provider Active Start : November 11, 2023 End: November 11, 2023 Team Status: Inactive Member Role Status Dates Yaritza Lopez SECURITY COORDINATOR-C Primary Care Provider Active Start: May 03, 2024 End: May 03, 2024 Ella Monsalve APRN Attending Provider Active S tart: May 03, 2024 End: May 03, 2024 Team Status: Active Member Role Status Dates Yaritza Lopez SECURITY COORDINATOR-C Primary Care Provider Active Start: May 05, 2024 Audie Truong MD Attending Provider Active Start : May 05, 2024 Team Status: Inactive Member Role Status Dates Yaritza Lopez SECURITY COORDINATOR-C Primary Care Provider Active Start: May 12, 2024 End: May 12, 2024 Audie Truong MD Attending Provider Active Start : May 12, 2024 End: May 12, 2024 Team Status: Inactive Member Role Status Dates Yaritza Lopez SECURITY COORDINATOR-C Primary Care Provider Active Start: June 29, 2024 End: June 29, 2024 Marianne Ragsdale APRN Attending Provider Active Start: June 29, 2024 End: June 29, 2024 Team Status: Inactive Member Role Status Dates Yaritza Lopez SECURITY COORDINATOR-C Primary Care Provider Active Start: July 17, 2024 End: July 17, 2024 Juani Gagnon APRN Attending Provider Active Start: July 17, 2024 End: July 17, 2024 Team Status: Inactive Member Role Status Dates Yaritza Lopez SECURITY COORDINATOR-C Primary Care Provider Active Start: December 24, 2024 End: December 24, 2024 Yi Durham MD Attending Provider Active St art: December 24, 2024 End: December 24, 2024 INFORMATION SOURCE (unrecogn ized section and content) DATE CREATED AUTHOR 07/24/2022 [facility] DATE CREATED AUTHOR AUTHOR'S ORGANIZ ATION 09/05/2022 [facility] DATE CREATED AUTHOR AUTHOR'S MAURICE ATION 12/26/2024 [facility] Goals (unrecognized section and content) Goals may [...] BE BASED ON THE PRIMARY CLINICAL RECORDS. [facility] [employer] provides no warranty or guarantee of the accuracy or completeness of information in this document.
== END 2024-12-28 14:22 | disposition home or self-care (01) ==
LOC: PETCT 14:22
PROVIDERS: PCP Nurse Practitioner Family; Visit Provider Internal Medicine Hematology & Oncology
DX: D69.6 Thrombocytopenia, unspecified (principal); D64.9 Anemia, unspecified; D50.9 Iron deficiency anemia, unspecified; N18.9 Chronic kidney disease, unspecified; G62.89 Other specified polyneuropathies; C90.00 Multiple myeloma not having achieved remission; R77.9 Abnormality of plasma protein, unspecified
CPT/HCPCS: 78816; A9552

== ENCOUNTER 2025-01-12 08:35 | Outpatient (RCR) | payer MEDICARE, SELFPAY ==
--- OUTSIDE RECORDS SUMMARY | 2025-01-12 08:40 | XMS_ITS | CCD ---
Author Organization [facility] CliniSyia Care Team Providers Care [employer] Merchandising Coordinator Name Role Phone Audie Truong Unavailable YARITZA PEPPER Primary Care Physician [phone] MD AUDIE TRUONG Referring Unavailable Iván TOMLIN [...] Admitting Unavailable JOHN, YARITZA Primary Care Unavailable STPEHEN ROBLES Consulting Unavailable YARITZA LOPEZ Consulting Unavailable DIONNE, AUDIE Admitting Unavailable DIONNE, AUDIE Consulting Unavailable DIONNE, AUDIE Attending Unavailable JOHN, YARITZA Primary Care Unavailable John WASTE WATER OR WATER PLANT OPERATOR-C, Yaritza Harris Primary Care Provider Audie Truong MD Attending Provider Yi Durham MD Attending Provider Yaritza Lopez Primary Care Unavailable Yi Durham Attending Unavailable Yi Durham Admitting Unavailable Allergies Allergy Classification Reported Allergen(s) Allergy Type Date of Onset Reaction(s) Facility (1 source) No Known Medication Allergies; Translations: [No Known Medication Allergies] Propensity to adverse reactions (disorder) [facility] Repository Medications Current Medications Medication [...] 12, 2024 11:59am fluticasone 0.05 mg/inh Nasal [place] (2 sources) Start: 01-01-2019 take 2 spray(s) nasal route once daily fluticasone 0.05 mg/inh Nasal [place] 2 spray(s), Nasal, Daily, each nostril Start [...] Start: 01-01-2019 take 1 capsule by mo [facility] once daily levothyroxine 125 mcg (0.125 [...] Start: 05-12-2024 take 1 capsule by mo neh twice daily Methylsulfonylmethane (Msm) 1,000 mg capsule Active 1000 MG PO Twice daily May 12, 2024 1:00am Complies with drug therapy Start: 05-12-2024 take 1 capsule by mo ut twice daily Methylsulfonylmethane (Msm) 1,000 mg capsule Active 1000 MG PO Twice daily May 12, 2024 1:00am take 1 capsule by mo [facility] every twenty-four hours MSM [...] Start: 05-12-2024 take 2 tablets by mo [facility] once daily Multivitamin (Daily [...] with drug therapy take 1 capsule by [facility] every twenty-four hours Omeprazole 40 MG [...] Basophils (Bld) [#/Vol] 0.1 10*3/uL Normal 0.0-0.2 [facility] Comment on above: Result Comment: PERF ORMED BY: [place] [address] PATHOLOGIST DROSS PULLER TYLER MARTI M.D. Performed By: #### C BC, PP #### [facility] [address] [place] [address] Basophils/100 leukocytes in Blood by Automated countOrdered By: Yi Durham on 12-24-2024 Basophils/100 WBC (Bld) 1.2 % Normal . [facility] Comment on above: Performed By: #### C BC, PP #### [address] Bone Marrow Path for Lab Cor leidy 12-24-2024 Bone Marrow Path for Lab Kwaku Normal [facility] Comment on above: Result Comment: See report. Scanned copy available in EMR. PERFORMED BY: [place] [address] PATHOLOGIST DROSS PULLER TYLER MARTI M.D. Performed By: #### P ATH BM TO LC #### [address] guided bone marrow bx/asp iron 12-24-2024 CT guided bone marrow bx/aspir [facility] Main [place] [address] [place] [address] CT Scan Report Signed Patient: Peg Hadley MR#: [id number] : 1950 Acct:[id number] Age/Sex: 74 / F ADM Date: 12/24/24 Loc: CT Room: Type: [facility] Attending Dr: Yi Durham MD Copies to: [...] Buck M.D. 12/24/2024 2:50 PM Dictation Location: [place] [address] Transcribed By: [facility] 12/24/24 1450 Dictated By: Radhames Buck II, MD 12/24/24 1430 Signed By: 12/24/24 1450 Normal [facility] Coagulation Profileon 2024 aPTT Coag (Bld) [Time] 29.8 s Normal 25.1-36.5 [facility] Comment on above: Result Comment: A he matocrit value greater than 55% may lead to inaccurate results in coagulation testing. Patients having hematocrit values >55% require a special collection tube for coagulation studies. Please contact the laboratory at [phone] for redraw instructions. PERFORMED BY: [place] [address] PATHOLOGIST DROSS PULLER TYLER MARTI M.D. Performed By: #### C BC, PP #### [address] Complete Blood Count Auto Di ffon 12-24-2024 Mean Corpuscular HGB Conc 32.4 g/dL Normal 32.0-35.0 [facility] Comment on above: Performed By: #### C BC, PP #### [address] NRBC% 0.1 /100{WBC} Normal 0-0.5 [facility] Comment on above: Performed By: #### C BC, PP #### [address] White Blood Count 7.7 [CFU]/mL Normal 3.8-11.6 [facility] Comment on above: Performed By: #### C BC, PP #### [place] [address] [place] Eosinophils [#/volume] in Bl ood by Automated countOrdered By: Yi Durham on 12-24-2024 Eosinophils (Bld) [#/Vol] 0.2 10*3/uL Normal 0.0-0.45 [facility] Comment on above: Performed By: #### C BC, PP #### [place] [address] [place] Eosinophils/100 leukocytes i n Blood by Automated countOrdered By: Yi Marva on 12-24-2024 Eosinophils/100 WBC (Bld) 2.5 % Normal . [facility] Comment on above: Performed By: #### C BC, PP #### [address] Erythrocyte distribution wid th [Ratio] by Automated countOrdered By: Yi Marva on 12-24-2024 Erythrocyte distribution width (RBC) [Ratio] 14.7 % Normal 11.9-15.3 [facility] Comment on above: Performed By: #### C BC, PP #### [address] Erythrocytes [#/volume] in B lood by Automated countOrdered By: Yi Marva on 12-24-2024 RBC (Bld) [#/Vol] 4.43 10*6/uL Normal 3.60-5.00 [facility] Comment on above: Performed By: #### C BC, PP #### [address] Hematocrit [Volume Fraction] of Blood by Automated countOrdered By: Yi Durham on 12-24-2024 Hematocrit (Bld) [Volume fraction] 37.2 % Normal 34.0-46.4 [facility] Comment on above: Performed By: #### C BC, PP #### [address] Hemoglobin [Mass/volume] in BloodOrdered By: Yi Marva on 12-24-2024 Hemoglobin (Bld) [Mass/Vol] 12.1 g/dL Normal 11.8-15.4 [facility] Comment on above: Performed By: #### C BC, PP #### [place] [id number] [place] INR in Platelet poor plasma by Coagulation assayOrdered By: Yi Durham on 12-24-2024 INR Coag (PPP) [Relative time] 1.0 {INR} Normal [facility] Comment on above: INR Therapeutic Rang [...] Performed By: #### C BC, PP #### [facility] [address] [place] [address] Leukocytes [#/volume] correc milagros for nucleated erythrocytes in Blood by Automated counOrdered By: Yi Durham on 12-24-2024 WBC corrected for nucl RBC Auto (Bld) [#/Vol] 7.7 10*3/uL 3.8-11.6 [facility] Leukocytes [#/volume] in Blo od by Automated countOrdered By: Yi Durham on 12-24-2024 WBC (Bld) [#/Vol] 7.7 10*3/uL Normal 3.8-11.6 [facility] Comment on above: Performed By: #### C BC, PP #### [facility] [address] [place] [address] Lymphocytes [#/volume] in Bl ood by Automated countOrdered By: Yi Durham on 12-24-2024 Lymphocytes (Bld) [#/Vol] 1.8 10*3/uL Normal 1.00-4.8 [facility] Comment on above: Performed By: #### C BC, PP #### [place] [address] [place] Lymphocytes/100 leukocytes i n Blood by Automated countOrdered By: Yikhloe Durham on 12-24-2024 Lymphocytes/100 WBC (Bld) 23.8 % Normal . [facility] Comment on above: Performed By: #### C BC, PP #### [address] MCH [Entitic mass] by Automa milagros countOrdered By: Yi Marva on 12-24-2024 MCH (RBC) [Entitic mass] 27.2 pg Normal 24.7-34.3 [facility] Comment on above: Performed By: #### C BC, PP #### [address] MCHC Auto (RBC) [Mass/Vol]Or dered By: Yikhloe Durham on 12-24-2024 MCHC (RBC) [Mass/Vol] 32.4 g/dL 32.0-35.0 [facility] MCV [Entitic volume] by Auto mated countOrdered By: Yikhloe Durham on 12-24-2024 MCV (RBC) [Entitic vol] 83.8 fL Normal 80-100 [facility] Comment on above: Performed By: #### C BC, PP #### [address] Monocytes [#/volume] in Bloo d by Automated countOrdered By: Yi Marva on 12-24-2024 Monocytes (Bld) [#/Vol] 0.6 10*3/uL Normal 0.0-0.8 [facility] Comment on above: Performed By: #### C BC, PP #### [place] [address] [place] Monocytes/100 leukocytes in Blood by Automated countOrdered By: Yi Marva on 12-24-2024 Monocytes/100 WBC (Bld) 8.3 % Normal . [facility] Comment on above: Performed By: #### C BC, PP #### [facility] [address] Neutrophils [#/volume] in Bl ood by Automated countOrdered By: Yi Durham on 12-24-2024 Neutrophils (Bld) [#/Vol] 5.0 10*3/uL Normal 1.8-7.7 [facility] Comment on above: Performed By: #### C BC, PP #### [address] Neutrophils/100 leukocytes i n Blood by Automated countOrdered By: Yi Durham on 12-24-2024 Neutrophils/100 WBC (Bld) 64.2 % Normal . [facility] Comment on above: Performed By: #### C BC, PP #### [address] Nucleated erythrocytes [Pres ence] in Blood by Automated countOrdered By: Yi Durham on 12-24-2024 Nucleated RBC Auto Ql (Bld) 0.1 /100{WBC} 0-0.5 [facility] Platelet mean volume [Entiti c volume] in Blood by Automated countOrdered By: Yi Durham on 12-24-2024 Platelet mean volume (Bld) [Entitic vol] 10.3 fL Normal 6.3-10.7 [facility] Comment on above: Performed By: #### C BC, PP #### [address] Platelets [#/volume] in Bloo d by Automated countOrdered By: Yi Durham on 12-24-2024 Platelets (Bld) [#/Vol] 118 10*3/uL Low 150-450 [facility] Comment on above: Performed By: #### C BC, PP #### [address] Prothrombin time (PT)Ordered By: Yi Durham on 12-24-2024 PT Coag (PPP) [Time] 11.4 s Normal 9.0-12.[address] [facility] Comment on above: A hematocrit value g reater than 55% may lead to inaccurate results in coagulation testing. Patients having hematocrit values >55% require a special collection tube for coagulation studies. Please contact the laboratory at [phone] for redraw instructions. Result Comment: A he matocrit value greater than 55% may lead to inaccurate results in coagulation testing. Patients having hematocrit values >55% require a special collection tube for coagulation studies. Please contact the laboratory at [phone] for redraw instructions. Performed By: #### C BC, PP #### [address] aPTT in Platelet poor plasma by Coagulation assayOrdered By: Yi Durham on 12-24-2024 aPTT Coag (PPP) [Time] 29.8 s 25.1-36.5 [facility] Comment on above: A hematocrit value g reater than 55% may lead to inaccurate results in coagulation testing. Patients having hematocrit values >55% require a special collection tube for coagulation studies. Please contact the laboratory at [phone] for redraw instructions. Erythrocyte distribution wid th Auto (RBC) [Ratio]Ordered By: Audie Truong on 11-04-2024 Erythrocyte distribution width (RBC) [Ratio] 14.4 % 11.0-15.0 [facility] Estimated glomerular filtrat ion rate (GFR) non- AmericanOrdered By: Audie Truong on 11-04-2024 GFR/1.73 sq M.predicted among non-blacks MDRD (S/P/Bld) [Vol rate/Area] 35 mL/min/{1.73_m2} Low >=60 mL/min/1.73 m 2 [facility] Hematocrit Auto (Bld) [Volum e fraction]Ordered By: Audie Truong on 11-04-2024 Hematocrit (Bld) [Volume fraction] 37.6 % 36.0-48.0 [facility] Hemoglobin [Mass/volume] in BloodOrdered By: Audie Truong on 11-04-2024 Hemoglobin (Bld) [Mass/Vol] 11.9 g/dL Low 12.0-16.0 [facility] Iron binding capacity [Mass/ volume] in Serum or PlasmaOrdered By: Audie Truong on 11-04-2024 Iron binding capacity [Mass/Vol] 281.0 ug/dL 250.0-450.0 [facility] Iron saturation [Mass Fracti on] in Serum or PlasmaOrdered By: Audie Truong on 11-04-2024 Iron saturation [Mass fraction] 13.5 % [facility] - Chemistry and C hemistry - challengeOrdered By: Audie Truong on 11-04-2024 Albumin [Mass/Vol] 3.1 g/dL Low 3.4-5.0 [facility] Calcium [Mass/Vol] 8.2 mg/dL Low 8.5-10.1 [facility] Chloride [Moles/Vol] 106 mmol/L 98-[address] [facility] CO2 [Moles/Vol] 24.8 mmol/L 21.0-32.0 [facility] Creatinine [Mass/Vol] 1.45 mg/dL High 0.55-1.02 [facility] GFR/1.73 sq M.predicted MDRD (S/P/Bld) [Vol rate/Area] 43 mL/min/{1.73_m2} Low >=60 mL/min/1.73 m 2 [facility] Glucose [Mass/Vol] 107 mg/dL High 74-106 [facility] Iron [Mass/Vol] 38.0 ug/dL Low 50.0-170.0 [facility] Magnesium [Mass/Vol] 1.9 mg/dL 1.8-2.[address] [facility] Potassium [Moles/Vol] 4.0 mmol/L 3.5-5.1 [facility] Sodium [Moles/Vol] 143 mmol/L 136-145 [facility] Urate [Mass/Vol] 5.3 mg/dL 2.6-6.0 [facility] Urea nitrogen [Mass/Vol] 20.0 mg/dL High 7.0-18.0 [facility] Urea nitrogen/Creatinine [Mass ratio] 13.8 mg/mg [facility] Bilirubin Ql (U) Negative NEGATIVE [facility] Glucose (U) [Mass/Vol] Negative NEGATIVE [facility] Ketones Ql (U) Negative NEGATIVE [facility] pH (U) 6.0 [pH] 5.0-9.0 [facility] Specific gravity (U) [Rel density] 1.025 1.005-1.025 [facility] Urobilinogen Qn (U) 0.2 {Mikel'U}/dL 0.2-1.0 [facility] - Specimen inform ationOrdered By: Audie Truong on 11-04-2024 Appearance (U) CLEAR CLEAR [facility] Color (U) YELLOW YELLOW [facility] - UrinalysisOrder ed By: Audie Truong on 11-04-2024 Leukocyte esterase Test strip Ql (U) Negative NEGATIVE [facility] Mucus Ql (Urine sed) NONE SEEN NONE SEEN [facility] Nitrite Ql (U) Negative NEGATIVE [facility] Protein (U) [Mass/Vol] 40.1 mg/dL High <=11.9 [facility] Protein Ql (U) TRACE mg/dL NEG/TRACE [facility] Leukocytes [#/volume] correc milgaros for nucleated erythrocytes in Blood by Automated counOrdered By: Audie Truong on 11-04-2024 WBC corrected for nucl RBC Auto (Bld) [#/Vol] 8.7 10 3/uL 4.0-11.0 [facility] MCH Auto (RBC) [Entitic mass ]Ordered By: Audie Truong on 11-04-2024 MCH (RBC) [Entitic mass] 27.8 pg 26.7-34.0 [facility] MCHC Auto (RBC) [Mass/Vol]Or dered By: Audie Truong on 11-04-2024 MCHC (RBC) [Mass/Vol] 31.6 g/dL 29.9-35.2 [facility] MCV Auto (RBC) [Entitic vol] Ordered By: Audie Truong on 11-04-2024 MCV (RBC) [Entitic vol] 87.9 fL 81.0-99.0 [facility] No Panel InformationOrdered By: Audie Truong on 11-04-2024 25-Hydroxy Vitamin D Total 70.3 ng/mL [facility] Comment on above: <20 ng/mL Vit D defi cient20-<30 ng/mL Vit D [id number] ng/mL Vit D sufficient>100 ng/mL Potential Toxicity Miscellaneous Test COMMENT . [facility] Comment on above: Test Ordered: [id number] FerritinFerritin 101 ng/mL CB Reference Range: 15-150Performed at: CB - [facility] [address] [id number] Director: Rich Camejo PhD, Phone: [phone] Parathyroid Hormone (Intact) 124 pg/mL Abnormal 15-65 [facility] Comment on above: Performed at: CB - [facility] [address] [id number] Director: Rich Camejo PhD, Phone: [phone] Phosphorus Level 2.5 mg/dL Low 2.6-4.7 [facility] Urine Bacteria NONE SEEN #/HPF NONE SEEN [facility] Urine Occult Blood TRACE-I NEGATIVE [facility] Urine Other Casts NONE SEEN #/LPF NONE SEEN [facility] Urine Other Crystals None Seen #/HPF None Seen [facility] Urine Random Creatinine 288.44 mg/dL 20.00-300.0 0 [facility] Urine RBC 0-2 #/HPF 0-2 [facility] Urine Squamous Epithelial Cells FEW #/LPF Abnormal NONE/RARE [facility] Urine WBC 0-2 #/HPF Abnormal NONE SEEN [facility] Platelet mean volume Auto (B ld) [Entitic vol]Ordered By: Audie Truong on 11-04-2024 Platelet mean volume (Bld) [Entitic vol] 12.1 fL 9.5-13.5 [facility] Platelets Auto (Bld) [#/Vol] Ordered By: Audie Truong on 11-04-2024 Platelets (Bld) [#/Vol] 118 10 3/uL Low 150-450 [facility] RBC Auto (Bld) [#/Vol]Ordere d By: Audie Truong on 11-04-2024 RBC (Bld) [#/Vol] 4.28 10 6/uL 4.20-5.40 [facility] Serum or plasma anion gap de terminationOrdered By: Audie Truong on 11-04-2024 Anion gap [Moles/Vol] 16.2 mmol/L [facility] Urine protein/creatinine rat ioOrdered By: Audie Dionne on 11-04-2024 Protein/Creatinine (U) [Ratio] 0.14 [facility] Erythrocyte distribution wid th Auto (RBC) [Ratio]on 05-05-2024 Erythrocyte distribution width (RBC) [Ratio] Erythrocyte distribution width [Ratio] by Automated count 11.0-15.0 [facility] Estimated glomerular filtrat ion rate (GFR) non- Americanon 05-05-2024 GFR/1.73 sq M.predicted among non-blacks MDRD (S/P/Bld) [Vol rate/Area] Estimated glomerular filtration rate (GFR) non- Low >=60 mL/min/1.73 m 2 [facility] Hematocrit Auto (Bld) [Volum e fraction]on 05-05-2024 Hematocrit (Bld) [Volume fraction] Hematocrit [Volume Fraction] of Blood by Automated count 36.0-48.0 [facility] Hemoglobin [Mass/volume] in Bloodon 05-05-2024 Hemoglobin (Bld) [Mass/Vol] Hemoglobin [Mass/volume] in Blood 12.0-16.0 [facility] Iron binding capacity [Mass/ volume] in Serum or Plasmaon 05-05-2024 Iron binding capacity [Mass/Vol] Iron binding capacity [Mass/volume] in Serum or Plasma Low 250.0-450.0 [facility] Iron saturation [Mass Fracti on] in Serum or Plasmaon 05-05-2024 Iron saturation [Mass fraction] Iron saturation [Mass Fraction] in Serum or Plasma [facility] - Chemistry and C hemistry - challengeon 05-05-2024 Albumin [Mass/Vol] 3.1 g/dL Low 3.4-5.0 [facility] Calcium [Mass/Vol] 8.3 mg/dL Low 8.5-10.1 [facility] Chloride [Moles/Vol] 105 mmol/L 98-[address] [facility] CO2 [Moles/Vol] 28.9 mmol/L 21.0-32.0 [facility] Creatinine [Mass/Vol] 1.47 mg/dL High 0.55-1.02 [facility] Ferritin [Mass/Vol] 93.0 ng/mL 8.0-252.0 [facility] GFR/1.73 sq M.predicted MDRD (S/P/Bld) [Vol rate/Area] 42 mL/min/{1.73_m2} Low >=60 mL/min/1.73 m 2 [facility] Glucose [Mass/Vol] 104 mg/dL 74-106 [facility] Iron [Mass/Vol] 40.0 ug/dL Low 50.0-170.0 [facility] Magnesium [Mass/Vol] 2.0 mg/dL 1.8-2.[address] [facility] Potassium [Moles/Vol] 4.0 mmol/L 3.5-5.1 [facility] Sodium [Moles/Vol] 143 mmol/L 136-145 [facility] Urate [Mass/Vol] 5.1 mg/dL 2.6-6.0 [facility] Urea nitrogen [Mass/Vol] 16.0 mg/dL 7.0-18.0 [facility] Urea nitrogen/Creatinine [Mass ratio] 10.9 mg/mg [facility] Bilirubin Ql (U) Negative NEGATIVE [facility] Glucose (U) [Mass/Vol] Negative NEGATIVE [facility] Ketones Ql (U) Negative NEGATIVE [facility] pH (U) 5.5 [pH] 5.0-9.0 [facility] Specific gravity (U) [Rel density] >=1.030 Abnormal 1.005-1.025 [facility] Urobilinogen Qn (U) 0.2 {Mikel'U}/dL 0.2-1.0 [facility] - Specimen inform ationon 05-05-2024 Appearance (U) CLEAR CLEAR [facility] Color (U) YELLOW YELLOW [facility] - Urinalysison Leukocyte esterase Test strip Ql (U) SMALL Abnormal NEGATIVE [facility] Mucus Ql (Urine sed) TRACE Abnormal NONE SEEN [facility] Nitrite Ql (U) Negative NEGATIVE [facility] Protein (U) [Mass/Vol] 38.9 mg/dL High <=11.9 [facility] Protein Ql (U) TRACE mg/dL NEG/TRACE [facility] Leukocytes [#/volume] correc milagros for nucleated erythrocytes in Blood by Automated counon 05-05-2024 WBC corrected for nucl RBC Auto (Bld) [#/Vol] Leukocytes [#/volume] corrected for nucleated erythrocytes in Blood by Automated coun 4.0-11.0 [facility] MCH Auto (RBC) [Entitic mass ]on 05-05-2024 MCH (RBC) [Entitic mass] MCH [Entitic mass] by Automated count 26.7-34.0 [facility] MCHC Auto (RBC) [Mass/Vol]on 05-05-2024 MCHC (RBC) [Mass/Vol] MCHC [Mass/volume] by Automated count 29.9-35.2 [facility] MCV Auto (RBC) [Entitic vol] on 05-05-2024 MCV (RBC) [Entitic vol] MCV [Entitic volume] by Automated count 81.0-99.0 [facility] No Panel Informationon 05-05 25-Hydroxy Vitamin D Total 76.3 ng/mL [facility] Comment on above: <20 ng/mL Vit D defi cient20-<30 ng/mL Vit D [id number] ng/mL Vit D sufficient>100 ng/mL Potential Toxicity Parathyroid Hormone (Intact) 90 pg/mL Abnormal 15-65 [facility] Comment on above: Performed at: - [employer] [id number] Director: Rich Camejo PhD, Phone: [phone] Phosphorus Level 3.1 mg/dL 2.6-4.7 [facility] Urine Bacteria SMALL #/HPF Abnormal NONE SEEN [facility] Urine Occult Blood SMALL Abnormal NEGATIVE [facility] Urine Random Creatinine 232.52 mg/dL 20.00-300.0 0 [facility] Urine RBC 2-5 #/HPF Abnormal 0-2 [facility] Urine Squamous Epithelial Cells MODERATE #/LPF Abnormal NONE/RARE [facility] Urine WBC 10-20 #/HPF Abnormal NONE SEEN [facility] Platelet mean volume Auto (B ld) [Entitic vol]on 05-05-2024 Platelet mean volume (Bld) [Entitic vol] Platelet mean volume [Entitic volume] in Blood by Automated count 9.5-13.5 [facility] Platelets Auto (Bld) [#/Vol] on 05-05-2024 Platelets (Bld) [#/Vol] Platelets [#/volume] in Blood by Automated count Low 150-450 [facility] RBC Auto (Bld) [#/Vol]on RBC (Bld) [#/Vol] Erythrocytes [#/volu me] in Blood by Automated count 4.20-5.40 [facility] Serum or plasma anion gap de terminationon 05-05-2024 Anion gap [Moles/Vol] Serum or plasma an ion gap determination [facility] Urine protein/creatinine rat ioon 05-05-2024 Protein/Creatinine (U) [Ratio] Urine protein/creatinine ratio [facility] Erythrocyte distribution wid th Auto (RBC) [Ratio]on 11-07-2023 Erythrocyte distribution width (RBC) [Ratio] 13.8 % 11.0-15.0 [facility] Estimated glomerular filtrat ion rate (GFR) non- Americanon 11-07-2023 GFR/1.73 sq M.predicted among non-blacks MDRD (S/P/Bld) [Vol rate/Area] 35 mL/min/{1.73_m2} Low >=60 [facility] Hematocrit Auto (Bld) [Volum e fraction]on 11-07-2023 Hematocrit (Bld) [Volume fraction] 38.7 % 36.0-48.0 [facility] Hemoglobin [Mass/volume] in Bloodon 11-07-2023 Hemoglobin (Bld) [Mass/Vol] 11.9 g/dL Low 12.0-16.0 [facility] - Chemistry and C hemistry - challengeon 11-07-2023 Albumin [Mass/Vol] 3.1 g/dL Low 3.4-5.0 [facility] Calcium [Mass/Vol] 8.7 mg/dL 8.5-10.1 [facility] Chloride [Moles/Vol] 103 mmol/L 98-[address] [facility] CO2 [Moles/Vol] 28.9 mmol/L 21.0-32.0 [facility] Creatinine [Mass/Vol] 1.46 mg/dL High 0.55-1.02 [facility] GFR/1.73 sq M.predicted MDRD (S/P/Bld) [Vol rate/Area] 43 mL/min/{1.73_m2} Low >=60 [facility] Glucose [Mass/Vol] 100 mg/dL 74-106 [facility] Magnesium [Mass/Vol] 1.6 mg/dL Low 1.8-2.[address] [facility] Potassium [Moles/Vol] 3.8 mmol/L 3.5-5.1 [facility] Sodium [Moles/Vol] 141 mmol/L 136-145 [facility] Urate [Mass/Vol] 5.3 mg/dL 2.6-6.0 [facility] Urea nitrogen [Mass/Vol] 21.0 mg/dL High 7.0-18.0 [facility] Urea nitrogen/Creatinine [Mass ratio] 14.4 mg/mg [facility] Bilirubin Ql (U) Negative NEGATIVE [facility] Glucose (U) [Mass/Vol] Negative NEGATIVE [facility] Ketones Ql (U) Negative NEGATIVE [facility] pH (U) 6.0 [pH] 5.0-9.0 [facility] Specific gravity (U) [Rel density] >=1.030 Abnormal 1.005-1.025 [facility] Urobilinogen Qn (U) 0.2 {Mikel'U}/dL 0.2-1.0 [facility] Laboratory - Specimen inform ationon 11-07-2023 Appearance (U) CLEAR CLEAR [facility] Color (U) LT. YELLOW YELLOW [facility] Laboratory - Urinalysison Hyaline casts LM Ql (Urine sed) RARE [facility] Leukocyte esterase Test strip Ql (U) MODERATE Abnormal NEGATIVE [facility] Mucus Ql (Urine sed) SMALL Abnormal NONE SEEN [facility] Nitrite Ql (U) Negative NEGATIVE [facility] Protein Ql (U) TRACE mg/dL NEG/TRACE [facility] Leukocytes [#/volume] correc milagros for nucleated erythrocytes in Blood by Automated counon 11-07-2023 WBC corrected for nucl RBC Auto (Bld) [#/Vol] 7.5 10 3/uL 4.0-11.0 [facility] MCH Auto (RBC) [Entitic mass ]on 11-07-2023 MCH (RBC) [Entitic mass] 27.2 pg 26.7-34.0 [facility] MCHC Auto (RBC) [Mass/Vol]on 11-07-2023 MCHC (RBC) [Mass/Vol] 30.7 g/dL 29.9-35.2 [facility] MCV Auto (RBC) [Entitic vol] on 11-07-2023 MCV (RBC) [Entitic vol] 88.4 fL 81.0-99.0 [facility] No Panel Informationon 11-06 25-Hydroxy Vitamin D Total 83.6 ng/mL [facility] Comment on above: <20 ng/mL Vit D defi cient20-<30 ng/mL Vit D wiqecvrwgmkg58-445 ng/mL Vit D sufficient>100 ng/mL Potential Toxicity Parathyroid Hormone (Intact) 70 pg/mL Abnormal 15-65 [facility] Comment on above: Performed at: - [facility] [address] [id number] Director: Rich Camejo PhD, Phone: [phone] Phosphorus Level 3.2 mg/dL 2.6-4.7 [facility] Urine Bacteria SMALL #/HPF Abnormal NONE SEEN [facility] Urine Occult Blood SMALL Abnormal NEGATIVE [facility] Urine Other Casts SEEN #/LPF Abnormal NONE SEEN [facility] Urine Other Crystals None Seen #/HPF None Seen [facility] Urine RBC 0-2 #/HPF 0-2 [facility] Urine Squamous Epithelial Cells MANY #/LPF Abnormal NONE/RARE [facility] Urine Transitional Epithelial Cells MANY #/LPF Abnormal NONE SEEN [facility] Urine WBC 10-20 #/HPF Abnormal NONE SEEN [facility] Platelet mean volume Auto (B ld) [Entitic vol]on 11-07-2023 Platelet mean volume (Bld) [Entitic vol] 12.6 fL 9.5-13.5 [facility] Platelets Auto (Bld) [#/Vol] on 11-07-2023 Platelets (Bld) [#/Vol] 163 10 3/uL 150-450 [facility] RBC Auto (Bld) [#/Vol]on RBC (Bld) [#/Vol] 4.38 10 6/uL 4.20-5.40 [facility] Serum or plasma anion gap de terminationon 11-07-2023 Anion gap [Moles/Vol] 12.9 mmol/L [facility] Coding Summary.on 07-19-2022 Coding Summary. CD:[id number] Ww+PGh lYWQ+ZK3OEYJfE28qtCOqnZ6kP 0NMTElOSywgQVBQTElOSyIgbmF bIV9szURpKGQr IC8+SR7zWAVvRaherXGpw7H1zH K2F62jcr8mWFvqzIA7OIPmLcGi itsoz7ernLt7GUgmFsuvHvCx AFLiaZ43VIG4wU05Xp16bFKcnW Ooc3sgqAg9DkOeIDWtUSV9wGnv DSqqq3WpLWNpU74bsOAhm7L3 SOFrjVproSMoGgDxhXO1fS3vWT ejtdvis7xhihvfBuf0fg02jNAb f8W9xLW1Q4UxvxA0ZKHkqPHz KnlpsQFCwZ3zgkwhj6ktswqnIp PmKSZiFXr7KAp6WFAgtUpnYqWc QW29XJT3OUPclvBdX0YoISXe zZclDjE3c0S6Zw9FA6GFLghuL7 VNTUFSWTwvdGQ+DP48tk68U2Ne JxznBvd5ZZPoHKJ1yWK9zE0w LQKpGLvls1S2uZP0I0JdjvVoih 4ft3hcVYJfLMkcD31jgJGpr7I3 WLFkhNF7OGPewApwPxXxhN49 Oyc+OLXvgSwfn4WhVwazu9gyx8 jrrHa2YojyAQHqoxRrxPceFLS4 y7GqUi8iXGVvwZJ1tGH1uC4g YnOwAiO1RIjcP879TeNgrWKpKi fnO36mB4KpaOX+PCFeJqy3MACy zGtiWC6zB4GsKAVbcuwqrQDx wPbrAI9vOQXlknxiZYKpzP1bKQ AgC6n4KaIuVnR4GUtbI4WdSWKk rbxmRn49xV6aFaPyVyN8FRzj C9ZatqP7IOPkaSYaOOohEIM6L4 6ia0Z6IRIyOGAiIGZ5yOW8zJ7m bGlnbjogbGVmdDsgdmVydGlj TRdgRYiqR271XDPehHkfToPuMG luZyBEYXRlOiAgMDMvMzAvMjAy MzwvdGQ+KJKgUPR5hYqbEBKd tLHuTEfeGz7gyIwklJhcBE6iDC DmcpzxAGZyfM3cZTRnrRWfdDbl RB8yXKQbczhhv719HoHoOAP1 EQWdvYEkL4VclW6uIhYsVTXwVS IjL2RxkOKwFSgeT829HFruJmZ2 OUHqesMyS1CbKBIotXnuZdQ4 y7R3Nr5Uy8VfyytlI5DloVOmMy YlIcgbEJw4G3IdTsmezGZ+PC90 RQBqTK67BZz8KFM0wFrtFEkx MLYqK3XchB3qMdDkHMZdHIAbBs c+PHRhYmxlIHdpZHRoPScxMDAl UbEnqKzpTM4zDu1mLHFyFAQm nJcojKDfKbPna5jgRFWuVRztCT 5msFiaG9OzmAM6RMNwc3a1Ah77 H92rT3ApxWB+WHTjaMF9kSE7 eQ6eGfDmZqW4NTydX577BmDfoO XnPofad8gue1evhWa6MiZ8QEHl wzGikCniWJV3l5HmEk82Z96x IHdpZHRoPSIxNSUiIHZhbGlnbj 3hyP1gYm4+OEMdlQU2tYH6aY9a IyEcZmG7JKdkB865LdYzsNTy Huigr7dgq2mtbQn5CjSySVSwpm VseBdjUOI8h5HaQb72G1HeeDtd z7SvVuu0mn19iOJah0H3rPB9 G5GuMVMdlupglFHeqEglLR1yTC DrekfyVDDkpN7lZCIeX2o5GoFj FvL2QMzaM3ScmcL2JWVleVHd ALSnfWJSvW1duogtr4dgobpmTd ZxMHScWPa8UMf4TGAkuZtjJeUq ZPM8UnO8SZX9fJBpxE3zpBhh jcuhnS8eGhz+ZSX0bLCzjILUXK 1lOjwvdGQ+ZFGpIUY4kDnxKZrg GSNrgN3hEIZfR6h0UpCaVrZ4 QEmtN6YplkI5MKMixRByPIZigM RFyI1qdghsi8fgtfeqFkNoFKIv VBw3FBa9CAQhvQxeJcSaAVF0 NeE0WVX9aEUqvP4zmMxqfhzygZ 9wOyc+WcpiiFarOTC0PFx4Q1Zr Xrq8QKQemCrtKK6ryLLnWNva Qp9osXeewEnsAN9eTHIgnzzvs5 75QxZrs8ajYRBcfGNuPBniNEG0 Y63mr0I3PFTuABDpVBP8kRN4 nG1pvDrtltearKMtxIhhnaSrgZ xxSQtjYTpsI903EQFlgZckSwGb TOe7K0ZbWwd1EFJszHibLR5j rNTnUUuwLg2lyAnslWohIZ2xGT Wnchank847YbEww6scXZWkkIMj DWxcIUE2S68bh5R6MVEuWRIs OBV3mBB9pV3ybEzkrwxqdGSjhX nsuwUmuEzgLQcuNXonT515QHHe dQwxRqWxuLz9D3KmYpc2AOWx dEtiXV8akEFqYJfnPj0lsCwtqJ zlJU2qIUGartpbk335WoMgi6td YSPeeJIrKWpmNSJ4E98ve1Q1 JPOeWAJhWWQ4uDK9pX8eaJqtzo ogbGVmdDsgdmVydGljYWwtYWxp B728IPJioHejAgKozQsgukHi NSdlGIv9E3MwWkffgXJ+PC90YW InKA11wGYdmVEjp1nooQw9ItRn ZACcWIQ5iVxtSMswz4IdESJp A54xvXMrg5P7DTXzaBkimMNlHi FsxDB1bT1wBNmwqhvpe4ewoakf Gmlez4ppfs04yO11E93fONwg AXYmAONaPGOmRFJbmWknls1ziD 9wIi8+MBUatIJ2eBJ0pN0fWHVg EkS0JTrqA773UkRxqXDqHmjs t4tfr5olwIy2FzG4ABJiozQnfW flRZD5e9CfUd25U21kKCxyDJBu FIYgCTGdHZLmpXdhfs1utO5b Ii8+OBVcsGU2aNV2oR5zVfFcEt O3PLxsL275DxKqhMCsXblbD61a M7TxpQY+YQIwIhg7THCorAns AZ1ftUCtDGltRb9aJND7VmXzAo LaARdxL9TtFLJpzluddydwvJQ4 PPZoPLZuyB74Xe4zgAweLOSg nNUNpC9zwphgw3merrnkWfNiYQ QwZPl9UBn2MIYvqPsaTcZmGJH4 CnW2AKO0zHGukK3hoHtddbbk bK2wS4TjDIAghnibIi08nQ5eJg TtNcZ1TSwhDnh+G7AVSjCJOUTR UGFPJ5ICKkUaXKvmfNT+PHRk CAD8tOaaACwgIRQnzV5jDITiJ3 b8JpStRfP8XRufA5YxSPLevvbu Cv97rC2wPjHkLwY2IOenE3Uc lzT4SBMuaYSkYAwtGXC9B97dg3 X5MZFlIDYrKJE7sEU4hR6qbElc bjogbGVmdDsgdmVydGljYWwt DNqnY112FEEpnJxfYxIwBmSrBd Q8SDD3R4UiXou2LGWnoKwkCL9c gGEjUOhlMk3boTyugWacVZ3b WUHtwnriDUKxwA7nNGXvvNOevF hiMJ4wQZXflhqry366NuCeJOR6 GFPjoUXjU7TvgZ6mKgVeQONg ZIZhI3DtcPFnMPynU381QOvxTn F6ZZQtvtQhY6HrCDMhxGlbMiF1 r2I5Np02CQSBHEGfvthtmAO+ ICLsJBP6sDfvIUizDRMfgY8dPS OmL8t6TtJdIpJ5COdiL6DvAIGz qsnoKk97eL7tAdFlSjS7WIwl F6JsxvD5PSSvmKNwSLbaZEA4N5 5li1L0VKXtUMCgMCY9rMG3uE5x bGlnbjogbGVmdDsgdmVydGlj FDqdBDoaO217KPBqjGbsVwGkrT FsZTwvdGQ+MOCvNYO5vUwhFExf ATDezU0gOARsB7v4PjWxVeS4 ERfjJ3ZlYFKoygpgXh71gX0oZp QeTmF3THdtY0OyamE7KXAslEJz FFtjTJP1R61li5V0KPPqWIUb UIM5eCF0hQ1xmLvvlutexKNimA tlpmMqlGczYKfkPUntF826VCFx cLuwSv00oQUfsZktvyX5O4Pu PjwvdHI+KC14OPQhFB26oICykH Kmi8yyzZe3FcWiVQQiSNI4uAoe WXdys1ZpTCJiT44dnPKoe9U3 ALYmxOdqwLLcMgCzoOU8nB3lDS qaiodgs5uiltqwWudxs6fueq28 yB40L10vNDkzMJKaQPXoEYWo ELOcuKswgo5qwJ6hJs4+PGNvbC V3yOH1rD5pLpUeKwI0BLxzP354 HwBfvRAlStygs8sja1yoiCw7 ClDsPTBwxmXtvDzqBDJ3n0UwZh 99O18ySIuzOMXmCSItDHLqLREp eOxgzf2teJ6gLg9+NL0yl3mu sr03sS12uTY+CREsAPU2wLqrLV vgWNTebB8cZRcmQqV5BVUfXqKh bD41vBPjXSsaKa5jxQixcWoe XW3uKACqnkbhs657PgGgc6khSI KnzTTiGVsfLPL0C35cg2B9LSPx NTKjNNH7bBJ0uV3bnOhdeoce bGVmdDsgdmVydGljYWwtYWxpZ2 83JMAgtPxzBgOgpWFnE9mwdvTQ QE4bVtvjtBW+SCJpPUL5tEop CNtmPLLfyS3fTLFqR8p0SyBsAu H2VXuhU5XoidV8RAAopSTiODPz lQOAyA8kkpgyt7ugwfiyXeKa MHBbYCh2KQw3HUWknLeeAbPvRV X9PfC6JDO4zHWcbB0dsYgabije xP0nUgz+RklOOjwvdGQ+PHRk WBB5hDfmHOmcJXYpfL2wNIVaH5 y3NjSwGxM4KMrgT8RuecC4PTGr lHJiMUIpbYBTxI0uzcrqw9ws fbjsAdFkBOKiHSa1HMj0WXXoyI ajWlEvOUN5WcV1WFS1wVRbrH4u tVxhieldiV4mMyk+TVJOOjwv dGQ+NCWuCVM5wWwhZIdpAPEgiG 4wHNDkM4w8YnBzLsN7SEhxD6Th pdK2YHGiyXWmGKTxwBKToU6k pkbsf5xkyserMfCjWFLzOVb1GB g0UVDvsVsvUkJdHJC6JlJ4UQE0 qXRqcW8rrJbzqaebeY5iKbq+ UMG1OQL9FA20ZB59F3IqEubqnP FibGU+PHRhYmxlIHdpZHRoPScx DKAeGiBemGiaJQ7vJa2vEFFl LWNvbGxh (more content not included)... [facility] Consent for Procedure/Surger yon 07-17-2022 Consent for Procedure/Surgery [id number]#1.00CD:127 [facility] Consent for Treatmenton -2 Consent for Treatment [id number]#1.00CD:127 [facility] IntraOperative Documentson 0 07-17-2022 IntraOperative Documents [id number]#1.00CD:127 [facility] Main OR Intraoperative Recor don 07-17-2022 Main OR Intraoperative Record IntraOp Document Type FTURO Summary Primary Physician: KELLY BLACKMON, Iván Hsu Finalized Date/Time: 07/17/22 09:10:19 Pt. Name: PEG HADLEY/Sex: 1950 Female Med Rec #: [id number] Physician: Iván TOMLIN MD Financial #: [id number] Pt. Type: O Room/Bed: / Admit/Disch: 07/17/22 [...] Palma Ko Role Performed Surgeon - Primary Spray Gun Sizer - Primary Scrub - Primary Time In [...] KELLY BLACKMON, Iván Hsu, Verified (If Participants DEDRA Noe RN, Applicable) Lorraine oK CST, Julie A Time Out Complete 07/17/22 [...] RN, Ruthann 07/17/22 09:[address] [facility] Main OR Preoperative Recordo n 07-17-2022 Main OR Preoperative Record Holding Area Document Type FTURO Summary Primary Physician: Iván TOMLIN MD Finalized Date/Time: 07/17/22 09:04:54 Pt. Name: PEG HADLEY Gee Duque/Sex: 1950 Female Med Rec #: [id number] Physician: Iván TOMLIN MD Financial #: [id number] Pt. Type: O Room/Bed: / Admit/Disch: 07/17/22 [...] No Pain Comment: na Skin Integrity Intact, Marrowbone, Warm, & Dry Vitals - EU Blood Pressure 135/82 Pulse 65 bpm Respirations 16 br/min SPO2 96 % RN Reviewed Yes Last Modified By: DEDRA Noe RN, Ruthann 07/17/22 09:04:49 General Comments: temp:36.4 Finalized By: DEDRA Noe RN, Ruthann Document Signatures Signed By: Maeve Florian LPN 07/17/22 08:41 DEDRA Noe RN, Ruthann 07/17/22 09:[address] [facility] Operative Reporton Operative Report Patient: ANURADHA HADLEY [...] a as needed basis.. Normal [facility] Comment on above: Result Comment: Elec tronically Signed By: Iván TOMLIN MD\.br\Date and Time Signed: 07/17/22 09:13 EDT RAD - Ultrasound Reporton RAD - Ultrasound Report [id number]#1.00CD:[address] [facility] Urine Cytology ([facility])on 0 07-09-2022 Urine Cytology Diagnosis Info Invalid Interpretation Code [facility] Comment on above: Result Comment: A:Ur ine,Urine:Voided Interpretation - MicroScopic Description - Adequacy - Gross Description Site ID:A color Light Yellow fixative Alcohol Specimen designated Urine received in alcohol preservative and labeled with the patient?s name, consists of 40ml clear light yellow fluid. Electronically signed by : on: 07/09/2022 15:10:50 Performed By: #### 1 [id number] ####[facility] [address] [place] [address] US KIDNEYSon 07-07-2022 US KIDNEYS EXAM: US [...] by: DANIELLE CAM Date: 2022-07-07 10:33 Normal [facility] Formson 07-03-2022 Forms [id number]#1.00CD:[address] [facility] Physician Referralon 023 Physician Referral [id number]#1.00CD:[address] [facility] Pre-Certification Formon Pre-Certification Form [id number]#1.00CD:[address] [facility] Ambulatory Visit Summaryon 0 07-02-2022 Ambulatory Visit Summary PEG HADLEY :1950 Visit Date:07/02/2022 Ambulatory Visit Instructions Your Diagnosis Microscopic hematuria Tests Performed Urnls Dip Stick Auto w/o Microscopy POC 52727 US Renal -- Results Pending -- Please [...] Tab) fluticasone nasal (fluticasone 0.05 mg/inh Nasal [place]) hyoscyamine (hyoscyamine 0.125 mg oral Tab) levothyroxine [...] [facility] [address] , [place] [address]- Medications What How Much When Instructions Unchanged [...] fluticasone nasal (fluticasone 0.05 mg/ inh Nasal [place]) 2 Sprays Nasal Inhalation Every day each [...] Urnls Dip Stick Auto w/o Microscopy POC 22718 (07/02/2022) Bilirubin Urine Dipstick - Negative Blood Urine Dipstick - Trace-lysed Glucose Urine Dipstick - Negative Ketones Urine Dipstick - Negative Leukocytes Urine Dipstick - Negative Nitrite Urine Dipstick - Negative Protein Urine Dipstick - Negative Specific [place] Urine Dipstick - >=1.030 Urine Appearance Urine [...] (more content not included)... Normal [facility] Patient Educationon 07-03-19 Patient Education [...] these instructions at home: Medicines ? Take qvlc-mqo-bvrdtxp and prescription medicines only as told by [...] the blood stops without treatment. ? Take wmyu-vcm-fjfsiwm and prescription medicines only as told by your health care provider. ? Drink enough fluid to keep your urine clear or pale yellow. This information is not intended to replace advice given to you by your health care provider. Make sure you discuss any questions you have with your health care provider. Document Released: 04/08/2006 Document Revised: 09/02/2019 Document Reviewed: 05/11/2017 [employer] Patient Education ? 2019 [employer] Normal [facility] Urine Cytology ([facility])on 0 07-02-2022 Method of Extraction Voided Normal [facility] Comment on above: Performed By: #### 1 [id number] ####[facility] [address] [place] [address] Number of Jars 1 Invalid Interpretation Code [facility] Comment on above: Performed By: #### 1 [id number] ####[facility] [address] [place] [address] Specimen Urine Normal [facility] Comment on above: Performed By: #### 1 [id number] ####[facility] [address] [place] [address] Type of Service Technical Only Normal [facility] Comment on above: Performed By: #### 1 [id number] ####[facility] [address] [place] [address] PTH INTACTon 05-22-2022 PTH, Intact 75 pg/mL Critically high 15-65 [facility] Comment on above: Performed By: #### P THINT #### [facility] [address] [place] [address] Dr. Andrea Mccarthy FERRITINon 05-21-2022 Ferritin [Mass/Vol] 124.0 ng/mL Normal 8.0-252.0 [facility] Comment on above: Performed By: #### U KIM, MG, PHOS #### [facility] [address] [place] [address] Dr. Andrea Mccarthy HEMOGRAM AND PLATELon 2022 Hematocrit (Bld) [Volume fraction] 40.1 % Normal 36.0-48.0 [facility] Comment on above: Performed By: #### U KIM, MG, PHOS #### [facility] [address] [place] [address] Dr. Andrea Mccarthy Hemoglobin (Bld) [Mass/Vol] 13.2 g/dL Normal 12.0-16.0 [facility] Comment on above: Performed By: #### U KIM, MG, PHOS #### [facility] [address] [place] [address] Dr. Andrea Mccarthy MCH (RBC) [Entitic mass] 28.0 pg Normal 26.7-34.0 [facility] Comment on above: Performed By: #### U KIM, MG, PHOS #### [facility] [address] [place] [address] Dr. Andrea Mccarthy MCHC (RBC) [Mass/Vol] 32.9 g/dL Normal 29.9-35.2 [facility] Comment on above: Performed By: #### U KIM, MG, PHOS #### [facility] [address] [place] [address] Dr. Andrea Mccarthy MCV (RBC) [Entitic vol] 85.1 fL Normal 81.0-99.0 [facility] Comment on above: Performed By: #### U KIM, MG, PHOS #### [facility] [address] [address] [address] Andrea Mccarthy PLT 255 103/ul Normal 150-450 [facility] Comment on above: Performed By: #### U KIM, MG, PHOS #### [facility] [address] [address] [address] Andrea Mccarthy RBC 4.71 106/ul Normal 4.20-5.40 [facility] Comment on above: Performed By: #### U KIM, MG, PHOS #### [facility] [address] [place] [address] Dr. Andrea Mccarthy WBC 5.9 103/ul Normal 4.0-11.0 [facility] Comment on above: Performed By: #### U KIM, MG, PHOS #### [facility] [address] [place] [address] Dr. Andrea Mccarthy IRON AND TIBCon 05-21-2022 % SATURATION 18.5 % Normal [facility] Comment on above: Performed By: #### U KIM, MG, PHOS #### [facility] [address] [place] [address] Dr. Andrea Mccarthy Iron [Mass/Vol] 51.0 ug/dL Normal 50.0-170.0 [facility] Comment on above: Performed By: #### U KIM, MG, PHOS #### [facility] [address] [place] [address] Dr. Andrea Mccarthy TIBC DIRECT 276.0 ug/dL Normal 250.0-450.0 [facility] Comment on above: Performed By: #### U KIM, MG, PHOS #### [facility] [address] [place] [address] Dr. Andrea Mccarthy MAGNESIUMon 05-21-2022 Magnesium [Mass/Vol] 1.8 mg/dL Normal 1.8-2.4 [facility] Comment on above: Performed By: #### U KIM, MG, PHOS #### [facility] [address] [place] [address] Dr. Andrea Mccarthy RENAL FUNCTION PANELon 05-21 Albumin [Mass/Vol] 3.5 g/dL Normal 3.4-5.0 [facility] Comment on above: Performed By: #### U KIM, MG, PHOS #### [facility] [address] [place] [address] Dr. Andrea Mccarthy Calcium [Mass/Vol] 8.5 mg/dL Normal 8.5-10.1 [facility] Comment on above: Performed By: #### U KIM, MG, PHOS #### [facility] [address] [place] [address] Dr. Andrea Mccarthy Chloride [Moles/Vol] 104 mmol/L Normal 98-107 [facility] Comment on above: Performed By: #### U KIM, MG, PHOS #### [facility] [address] [place] [address] Dr. Andrea Mccarthy CO2 [Moles/Vol] 29.6 mmol/L Normal 21.0-32.0 [facility] Comment on above: Performed By: #### U KIM, MG, PHOS #### [facility] [address] [address] [address] Andrea Mccarthy Creatinine [Mass/Vol] 1.23 mg/dL Critically high 0.55-1.02 [facility] Comment on above: Performed By: #### U KIM, MG, PHOS #### [facility] [address] [place] [address] Dr. Andrea Mccarthy EGFR-AF BRUNEIAN 52 mL/min/1.73m2 Critically low >=60 [facility] Comment on above: Performed By: #### U KIM, MG, PHOS #### [facility] [address] [place] [address] Dr. Andrea Mccarthy EGFR-NON AF BRUNEIAN 43 mL/min/1.73m2 Critically low >=60 [facility] Comment on above: Performed By: #### U KIM, MG, PHOS #### [facility] [address] [place] [address] Dr. Andrea Mccarthy Glucose [Mass/Vol] 92 mg/dL Normal 74-106 [facility] Comment on above: Performed By: #### U KIM, MG, PHOS #### [facility] [address] [place] [address] Dr. Andrea Mccarthy Phosphate [Mass/Vol] 3.3 mg/dL Normal 2.6-4.7 [facility] Comment on above: Performed By: #### U KIM, MG, PHOS #### [facility] [address] [place] [address] Dr. Andrea Mccarthy Potassium [Moles/Vol] 3.9 mmol/L Normal 3.5-5.1 [facility] Comment on above: Performed By: #### U KIM, MG, PHOS #### [facility] [address] [place] [address] Dr. nAdrea Mccarthy Sodium [Moles/Vol] 141 mmol/L Normal 136-145 [facility] Comment on above: Performed By: #### U KIM, MG, PHOS #### [facility] [address] [place] [address] Dr. Andrea Mccarthy Urea nitrogen [Mass/Vol] 25.0 mg/dL Critically high 7.0-18.0 [facility] Comment on above: Performed By: #### U KIM, MG, PHOS #### [facility] [address] [place] [address] Dr. Andrea Mccarthy UA RANDOM W/MICROSCOPICon BACTERIA NONE SEEN Normal NONE SEEN [facility] Comment on above: Performed By: #### U AMIC #### [facility] [address] [place] [address] Dr. Andrea Mccarthy Bilirubin Ql (U) Negative Normal NEGATIVE [facility] Comment on above: Performed By: #### U AMIC #### [facility] [address] [place] [address] Dr. Andrea Mccarthy CAST NONE SEEN Normal NONE SEEN [facility] Comment on above: Performed By: #### U AMIC #### [facility] [address] [place] [address] Dr. Andrea Mccarthy Clarity (U) CLEAR Normal CLEAR [facility] Comment on above: Performed By: #### U AMIC #### [facility] [address] [address] [address] Andrea Mccarthy Color (U) YELLOW Normal YELLOW [facility] Comment on above: Performed By: #### U AMIC #### [facility] [address] [place] [address] Dr. Andrea Mccarthy Crystals LM Nom (Urine sed) NONE SEEN Normal NONE SEEN [facility] Comment on above: Performed By: #### U AMIC #### [facility] [address] [address] [address] Andrea Mccarthy Epithelial cells LM Ql (Urine sed) FEW Abnormal NONE SEEN /RARE [facility] Comment on above: Performed By: #### U AMIC #### [facility] [address] [place] [address] Dr. Andrea Mccarthy Glucose Ql (U) Negative Normal NEGATIVE [facility] Comment on above: Performed By: #### U AMIC #### [facility] [address] [place] [address] Dr. Andrea Mccarthy Hemoglobin Ql (U) TRACE-INTACT Abnormal NEGATIVE [facility] Comment on above: Performed By: #### U AMIC #### [facility] [address] [place] [address] Dr. Andrea Mccarthy Ketones Ql (U) Negative Normal NEGATIVE [facility] Comment on above: Performed By: #### U AMIC #### [facility] [address] [place] [address] Dr. Andrea Mccarthy LEUKOCYTES Negative Normal NEGATIVE [facility] Comment on above: Performed By: #### U AMIC #### [facility] [address] [place] [address] Dr. Andrea Mccarthy MUCOUS TRACE Abnormal NONE SEEN [facility] Comment on above: Performed By: #### U AMIC #### [facility] [address] [place] [address] Dr. Andrea Mccarthy Nitrite Ql (U) Negative Normal NEGATIVE [facility] Comment on above: Performed By: #### U AMIC #### [facility] [address] [place] [address] Dr. Andrea Mccarthy pH (U) 5.0 [pH] Normal 5-9 [facility] Comment on above: Performed By: #### U AMIC #### [facility] [address] [place] [address] Dr. Andrea Mccarthy RBC 0-2 Normal 0-2 [facility] Comment on above: Performed By: #### U AMIC #### [facility] [address] [address] [address] Andrea Mccarthy SPEC GRAVITY 1.025 Normal 1.005-<=1.0 25 [facility] Comment on above: Performed By: #### U AMIC #### [facility] [address] [place] [address] Dr. Andrea Mccarthy UA PROTEIN Negative Normal NEGATIVE/ TRACE [facility] Comment on above: Performed By: #### U AMIC #### [facility] [address] [place] [address] Dr. Andrea Mccarthy Urobilinogen Qn (U) 0.2 {Mikel'U}/dL Normal 0.2 - 1. 0 [facility] Comment on above: Performed By: #### U AMIC #### [facility] [address] [place] [address] Dr. Andrea Mccarthy WBC NONE SEEN Normal NONE SEEN [facility] Comment on above: Performed By: #### U AMIC #### [facility] [address] [place] [address] Dr. Andrea Mccarthy URINE T PROTEIN CREAT RATIOo n 05-21-2022 Protein (U) [Mass/Vol] 21.5 mg/dL Critically high <=12.0 [facility] Comment on above: Performed By: #### U IKM, MG, PHOS #### [facility] [address] [place] [address] Dr. Andrea Mccarthy UR PROT CREAT RAT 0.15 Normal [facility] Comment on above: Performed By: #### U KIM, MG, PHOS #### [facility] [address] [place] [address] Dr. Andrea Mccarthy URINE CREAT 144.81 mg/dL Normal 20.00-300.0 0 [facility] Comment on above: Performed By: #### U KIM, MG, PHOS #### [facility] [address] [address] [address] Andrea Mccarthy VIT B12 AND FOLATEon 023 Cobalamin (Vitamin B12) [Mass/Vol] 1425.0 pg/mL Critically high 193.0-986.0 [facility] Comment on above: Performed By: #### U KIM, MG, PHOS #### [facility] [address] [address] [address] Andrea Mccarthy FOLATE 22.60 ng/mL Normal 8.60-58.90 [facility] Comment on above: Performed By: #### U KIM, MG, PHOS #### [facility] [address] SINUSES WO CONon [...] This area was not imaged on the 2018 study. Electronically authenticated by: STEPHEN ROBLES Date: 2022-01-01 07:30 Normal [facility] INSULINon 11-15-2021 Insulin 9.0 uIU/mL Normal 2.6-24.9 [facility] Comment on above: Performed By: #### I NSULIN #### [facility] [address] [address] [address] Andrea Mccarthy PTH INTACTon 11-15-2021 PTH, Intact 43 pg/mL Normal 15-65 [facility] Comment on above: Performed By: #### U KIM, MG, PHOS #### [facility] [address] [address] [address] Andrea Mccarthy VIT D 25-OH LABCORPon 2021 Vitamin D, 25-Hydroxy 85.4 ng/mL Normal 30.0-100.0 [facility] Comment on above: Result Comment: Samina min D deficiency has been defined by the [employer] of [employer] and an Endocrine Society practice guideline as a level of serum 25-OH vitamin D less than 20 ng/mL (1,2). The Endocrine Society went on to further define vitamin D insufficiency as a level between 21 and 29 ng/mL (2). 1. IOM ([employer] of Medicine). 2010. Dietary reference intakes for calcium and D. [place]: The National Academies Press. 2. Dagoberto MF, Rachel NC, Edilson MARTINEZ, et al. Evaluation, treatment, and prevention of vitamin D deficiency: an Endocrine Society clinical practice guideline. JCEM. 2010; 96(7):1911-30. Performed By: #### V ITADLC #### [facility] [address] [address] [address] Andrea Mccarthy CBC AUTO DIFFon 11-14-2021 BASO # 0.0 103/ul Normal 0.0-0.1 [facility] Comment on above: Performed By: #### U KIM, MG, PHOS #### [facility] [address] [address] [address] Andrea Mccarthy Basophils/100 WBC (Bld) 0.6 % Normal 0.2-2.0 [facility] Comment on above: Performed By: #### U KIM, MG, PHOS #### [facility] [address] [place] [address] Dr. Andrea Mccarthy EO # 0.2 103/ul Normal 0.0-0.7 [facility] Comment on above: Performed By: #### U KIM, MG, PHOS #### [facility] [address] [place] [address] Dr. Andrea Mccarthy Eosinophils/100 WBC (Bld) 2.4 % Normal 0.9-7.0 [facility] Comment on above: Performed By: #### U KIM, MG, PHOS #### [facility] [address] [place] [address] Dr. Andrea Mccarthy Erythrocyte distribution width (RBC) [Ratio] 14.0 % Normal 11.0-15.0 [facility] Comment on above: Performed By: #### U KIM, MG, PHOS #### [facility] [address] [place] [address] Dr. Andrea Mccarthy Hematocrit (Bld) [Volume fraction] 35.7 % Critically low 36.0-48.0 [facility] Comment on above: Performed By: #### U KIM, MG, PHOS #### [facility] [address] [place] [address] Dr. Andrea Mccarthy Hemoglobin (Bld) [Mass/Vol] 11.2 g/dL Critically low 12.0-16.0 [facility] Comment on above: Performed By: #### U KIM, MG, PHOS #### [facility] [address] [place] [address] Dr. Andrea Mccarthy IG # 0.02 10e3/ul Normal 0.00-0.03 [facility] Comment on above: Performed By: #### U KIM, MG, PHOS #### [facility] [address] [place] [address] Dr. Andrea Mccarthy IG % 0.3 % Normal 0.0-0.5 [facility] Comment on above: Performed By: #### U KIM, MG, PHOS #### [facility] [address] [place] [address] Dr. Andrea Mccarthy LYMPH # 1.8 103/ul Normal 1.2-3.8 [facility] Comment on above: Performed By: #### U KIM, MG, PHOS #### [facility] [address] [place] [address] Dr. Andrea Mccarthy Lymphocytes/100 WBC (Bld) 24.9 % Normal 20.5-60.0 [facility] Comment on above: Performed By: #### U KIM, MG, PHOS #### [facility] [address] [place] [address] Dr. Andrea Mccarthy MANUAL DIFF REQ NO Normal [facility] Comment on above: Performed By: #### U KIM, MG, PHOS #### [facility] [address] [place] [address] Dr. Andrea cMcarthy MCH (RBC) [Entitic mass] 27.3 pg Normal 26.7-34.0 [facility] Comment on above: Performed By: #### U KIM, MG, PHOS #### [facility] [address] [place] [address] Dr. Andrea Mccarthy MCHC (RBC) [Mass/Vol] 31.4 g/dL Normal 29.9-35.2 [facility] Comment on above: Performed By: #### U KIM, MG, PHOS #### [facility] [address] [place] [address] Dr. Andrea Mccarthy MCV (RBC) [Entitic vol] 87.1 fL Normal 81.0-99.0 [facility] Comment on above: Performed By: #### U KIM, MG, PHOS #### [facility] [address] [place] [address] Dr. Andrea Mccarthy MONO # 0.5 103/ul Normal 0.3-0.8 [facility] Comment on above: Performed By: #### U KIM, MG, PHOS #### [facility] [address] [place] [address] Dr. Andrea Mccarthy Monocytes/100 WBC (Bld) 7.0 % Normal 1.7-12.0 [facility] Comment on above: Performed By: #### U KIM, MG, PHOS #### [facility] [address] [address] [address] Andrea Mccarthy NEUT # 4.7 103/ul Normal 1.4-6.5 [facility] Comment on above: Performed By: #### U KIM, MG, PHOS #### [facility] [address] [place] [address] Dr. Andrea Mccarthy Neutrophils/100 WBC (Bld) 64.8 % Normal 43.0-75.0 [facility] Comment on above: Performed By: #### U KIM, MG, PHOS #### [facility] [address] [address] [address] Andrea Mccarthy Platelet mean volume (Bld) [Entitic vol] 10.1 fL Normal 9.5-13.5 [facility] Comment on above: Performed By: #### U KIM, MG, PHOS #### [facility] [address] [place] [address] Dr. Andrea Mccarthy PLT 309 103/ul Normal 150-450 [facility] Comment on above: Performed By: #### U KIM, MG, PHOS #### [facility] [address] [place] [address] Dr. Andrea Mccarthy RBC 4.10 106/ul Critically low 4.20-5.40 [facility] Comment on above: Performed By: #### U KIM, MG, PHOS #### [facility] [address] [place] [address] Dr. Andrea Mccarthy WBC 7.2 103/ul Normal 4.0-11.0 [facility] Comment on above: Performed By: #### U KIM, MG, PHOS #### [facility] [address] [place] [address] Dr. Andrea Mccarthy FREE THYROXINE INDEX T7on FTI 4.14 Normal 1.30-4.50 [facility] Comment on above: Performed By: #### U KIM, MG, PHOS #### [facility] [address] [place] [address] Dr. Andrea Mccarthy T3U 36.0 % Normal 30.0-39.0 [facility] Comment on above: Performed By: #### U KIM, MG, PHOS #### [facility] [address] [address] [address] Andrea Mccarthy T4 [Mass/Vol] 11.50 ug/dL Normal 4.80-13.90 [facility] Comment on above: Performed By: #### U KIM, MG, PHOS #### [facility] [address] [address] [address] Andrea Mccarthy GLYCOHEMOGLOBIN A1Con 2021 ADA RECOMMENDATION SEE BELOW Normal [facility] Comment on above: Result Comment: ADA RECOMMENDED LIMIT 4.0 - 6.0 ADA THERAPEUTIC TARGET < 7.0 ACTION SUGGESTED > 7.0 Performed By: #### A 1C #### [facility] [address] [place] [address] Dr. Andrea Mccarthy Glucose [Mass/Vol] 137 mg/dL Normal [facility] Comment on above: Performed By: #### A 1C #### [facility] [address] [address] [address] Andrea Mccarthy HbA1c (Bld) [Mass fraction] 6.4 % Critically high 4.5-6.2 [facility] Comment on above: Performed By: #### A 1C #### [facility] [address] [place] [address] Dr. Andrea Mccarthy IRONon 11-14-2021 Iron [Mass/Vol] 34.0 ug/dL Critically low 50.0-170.0 [facility] Comment on above: Performed By: #### U KIM, MG, PHOS #### [facility] [address] [place] [address] Dr. Andrea Mccarthy LIPID PROFILEon 11-14-2021 CHOL-HDL RATIO NORM SEE BELOW Normal [facility] Comment on above: Result Comment: 3.3 - 4.4 LOW RISK 4.4 - 7.1 AVERAGE RISK 7.1 - 11.0 MODERATE RISK >11.0 HIGH RISK Performed By: #### L IPID, TSH, T7, CMP #### [facility] [address] [place] [address] Dr. Andrea Mccarthy Cholesterol [Mass/Vol] 152 mg/dL Normal <=200 Th e [facility] Comment on above: Performed By: #### L IPID, TSH, T7, CMP #### [facility] [address] [address] [address] Andrea Mccarthy Cholesterol in HDL [Mass/Vol] 51 mg/dL Normal 40-60 [facility] Comment on above: Performed By: #### L IPID, TSH, T7, CMP #### [facility] [address] [address] [address] Andrea Mccarthy Cholesterol in LDL [Mass/Vol] 83.4 mg/dL Normal [facility] Comment on above: Performed By: #### L IPID, TSH, T7, CMP #### [facility] [address] [address] [address] Andrea Mccarthy Cholesterol.total/Chol esterol in HDL [Mass ratio] 3.0 {ratio} Normal [facility] Comment on above: Performed By: #### L IPID, TSH, T7, CMP #### [facility] [address] [address] [address] Andrea Mccarthy HDL NORMAL > or = 60 mg/dl - LO W CARDIOVASCULAR RISK <40 mg/dl - HIGH CARDIOVASCULAR RISK Normal [facility] Comment on above: Performed By: #### L IPID, TSH, T7, CMP #### [facility] [address] [address] [address] Andrea Mccarthy LDL CALC NORMAL SEE BELOW Normal [facility] Comment on above: Result Comment: <100 mg/dl OPTIMAL 100 - 129 mg/dl NEAR OR ABOVE OPTIMAL 130 - 159 mg/dl BORDERLINE HIGH 160 - 189 mg/dl HIGH >190 mg/dl VERY HIGH Performed By: #### L IPID, TSH, T7, CMP #### [facility] [address] [address] [address] Andrea Mccarthy Triglyceride [Mass/Vol] 88 mg/dL Normal <=150 [facility] Comment on above: Performed By: #### L IPID, TSH, T7, CMP #### [facility] [address] [address] [address] Andrea Mccarthy VLDL CALC 17.6 mg/dL Normal [facility] Comment on above: Performed By: #### L IPID, TSH, T7, CMP #### [facility] [address] [place] [address] Dr. Andrea Mccarthy MAGNESIUMon 11-14-2021 Magnesium [Mass/Vol] 2.2 mg/dL Normal 1.8-2.4 [facility] Comment on above: Performed By: #### U KIM, MG, PHOS #### [facility] [address] [address] [address] Andrea Mccarthy PHOSPHORUSon 11-14-2021 Phosphate [Mass/Vol] 3.0 mg/dL Normal 2.6-4.7 [facility] Comment on above: Performed By: #### U KIM, MG, PHOS #### [facility] [address] [place] [address] Dr. Adnrea Mccarthy PROF 14(COMP METB)on 022 Albumin [Mass/Vol] 3.2 g/dL Critically low 3.4-5.0 [facility] Comment on above: Performed By: #### L IPID, TSH, T7, CMP #### [facility] [address] [place] [address] Dr. Andrea Mccarthy Albumin/Globulin [Mass ratio] 0.8 {ratio} Normal [facility] Comment on above: Performed By: #### L IPID, TSH, T7, CMP #### [facility] [address] [place] [address] Dr. Andrea Mccarthy ALP [Catalytic activity/Vol] 51 U/L Normal 46-116 [facility] Comment on above: Performed By: #### L IPID, TSH, T7, CMP #### [facility] [address] [address] [address] Andrea Mccarthy ALT [Catalytic activity/Vol] 13 U/L Critically low 14-59 [facility] Comment on above: Performed By: #### L IPID, TSH, T7, CMP #### [facility] [address] [address] [address] Andrea Mccarthy Anion gap [Moles/Vol] 11.4 mmol/L Normal [facility] Comment on above: Performed By: #### L IPID, TSH, T7, CMP #### [facility] [address] [place] [address] Dr. Andrea Mccarthy AST [Catalytic activity/Vol] 9 U/L Critically low 15-37 [facility] Comment on above: Performed By: #### L IPID, TSH, T7, CMP #### [facility] [address] [place] [address] Dr. Andrea Mccarthy Bilirubin [Mass/Vol] 0.3 mg/dL Normal 0.2-1.0 [facility] Comment on above: Performed By: #### L IPID, TSH, T7, CMP #### [facility] [address] [place] [address] Dr. Andrea Mccarthy Calcium [Mass/Vol] 8.4 mg/dL Critically low 8.5-10.1 [facility] Comment on above: Performed By: #### L IPID, TSH, T7, CMP #### [facility] [address] [place] [address] Dr. Andrea Mccarthy Chloride [Moles/Vol] 105 mmol/L Normal 98-107 [facility] Comment on above: Performed By: #### L IPID, TSH, T7, CMP #### [facility] [address] [place] [address] Dr. Andrea Mccarthy CO2 [Moles/Vol] 27.7 mmol/L Normal 21.0-32.0 [facility] Comment on above: Performed By: #### L IPID, TSH, T7, CMP #### [facility] [address] [place] [address] Dr. Andrea Mccarthy Creatinine [Mass/Vol] 1.31 mg/dL Critically high 0.55-1.02 [facility] Comment on above: Performed By: #### L IPID, TSH, T7, CMP #### [facility] [address] [place] [address] Dr. Andrea Mccarthy EGFR-AF BRUNEIAN 49 mL/min/1.73m2 Critically low >=60 [facility] Comment on above: Performed By: #### L IPID, TSH, T7, CMP #### [facility] [address] [place] [address] Dr. Andrea Mccarthy EGFR-NON AF BRUNEIAN 40 mL/min/1.73m2 Critically low >=60 [facility] Comment on above: Performed By: #### L IPID, TSH, T7, CMP #### [facility] [address] [place] [address] Dr. Andrea Mccarthy Globulin (S) [Mass/Vol] 3.9 g/dL Normal [facility] Comment on above: Performed By: #### L IPID, TSH, T7, CMP #### [facility] [address] [place] [address] Dr. Andrea Mccarthy Glucose [Mass/Vol] 97 mg/dL Normal 74-106 [facility] Comment on above: Performed By: #### L IPID, TSH, T7, CMP #### [facility] [address] [place] [address] Dr. Andrea Mccarthy Potassium [Moles/Vol] 4.1 mmol/L Normal 3.5-5.1 [facility] Comment on above: Performed By: #### L IPID, TSH, T7, CMP #### [facility] [address] [place] [address] Dr. Andrea Mccarthy Protein [Mass/Vol] 7.1 g/dL Normal 6.4-8.2 [facility] Comment on above: Performed By: #### L IPID, TSH, T7, CMP #### [facility] [address] [place] [address] Dr. Andrea Mccarthy Sodium [Moles/Vol] 140 mmol/L Normal 136-145 [facility] Comment on above: Performed By: #### L IPID, TSH, T7, CMP #### [facility] [address] [place] [address] Dr. Andrea Mccarthy Urea nitrogen [Mass/Vol] 23.0 mg/dL Critically high 7.0-18.0 [facility] Comment on above: Performed By: #### L IPID, TSH, T7, CMP #### [facility] [address] [place] [address] Dr. Andrea Mccarthy Urea nitrogen/Creatinine [Mass ratio] 17.6 mg/mg Normal [facility] Comment on above: Performed By: #### L IPID, TSH, T7, CMP #### [facility] [address] [place] [address] Dr. Andrea Mccarthy TSHon 11-14-2021 TSH 0.032 uIU/mL Critically low 0.358-3.740 [facility] Comment on above: Performed By: #### U KIM, MG, PHOS #### [facility] [address] [place] [address] Dr. Andrea Mccarthy UA RANDOM W/MICROSCOPICon BACTERIA NONE SEEN Normal NONE SEEN [facility] Comment on above: Performed By: #### U KIM, MG, PHOS #### [facility] [address] [place] [address] Dr. Andrea Mccarthy Bilirubin Ql (U) Negative Normal NEGATIVE [facility] Comment on above: Performed By: #### U KIM, MG, PHOS #### [facility] [address] [place] [address] Dr. Andrea Mccarthy CAST NONE SEEN Normal NONE SEEN [facility] Comment on above: Performed By: #### U KIM, MG, PHOS #### [facility] [address] [place] [address] Dr. Andrea Mccarthy Clarity (U) CLEAR Normal CLEAR [facility] Comment on above: Performed By: #### U KIM, MG, PHOS #### [facility] [address] [place] [address] Dr. Andrea Mccarthy Color (U) YELLOW Normal YELLOW [facility] Comment on above: Performed By: #### U KIM, MG, PHOS #### [facility] [address] [place] [address] Dr. Andrea Mccarthy Crystals LM Nom (Urine sed) NONE SEEN Normal NONE SEEN [facility] Comment on above: Performed By: #### U KIM, MG, PHOS #### [facility] [address] [place] [address] Dr. Andrea Mccarthy Epithelial cells LM Ql (Urine sed) FEW Abnormal NONE SEEN /RARE [facility] Comment on above: Performed By: #### U KIM, MG, PHOS #### [facility] [address] [place] [address] Dr. Andrea Mccarthy Glucose Ql (U) Negative Normal NEGATIVE [facility] Comment on above: Performed By: #### U KIM, MG, PHOS #### [facility] [address] [address] [address] Andrea Mccarthy Hemoglobin Ql (U) TRACE-INTACT Abnormal NEGATIVE [facility] Comment on above: Performed By: #### U KIM, MG, PHOS #### [facility] [address] [address] [address] Andrea Mccarthy Ketones Ql (U) Negative Normal NEGATIVE [facility] Comment on above: Performed By: #### U KIM, MG, PHOS #### [facility] [address] [place] [address] Dr. Andrea Mccarthy LEUKOCYTES Negative Normal NEGATIVE [facility] Comment on above: Performed By: #### U KIM, MG, PHOS #### [facility] [address] [place] [address] Dr. Andrea Mccarthy MUCOUS SMALL Abnormal NONE SEEN [facility] Comment on above: Performed By: #### U KIM, MG, PHOS #### [facility] [address] [place] [address] Dr. Andrea Mccarthy Nitrite Ql (U) Negative Normal NEGATIVE [facility] Comment on above: Performed By: #### U KIM, MG, PHOS #### [facility] [address] [place] [address] Dr. Andrea Mccarthy pH (U) 5.5 [pH] Normal 5-9 [facility] Comment on above: Performed By: #### U KIM, MG, PHOS #### [facility] [address] [place] [address] Dr. Andrea Mccarthy RBC 0-2 Normal 0-2 [facility] Comment on above: Performed By: #### U KIM, MG, PHOS #### [facility] [address] [place] [address] Dr. Andrea Mccarthy SPEC GRAVITY 1.020 Normal 1.005-<=1.0 25 [facility] Comment on above: Performed By: #### U KIM, MG, PHOS #### [facility] [address] [place] [address] Dr. Andrea Mccarthy UA PROTEIN Negative Normal NEGATIVE/ TRACE [facility] Comment on above: Performed By: #### U KIM, MG, PHOS #### [facility] [address] [address] [address] Andrea Mccarthy Urobilinogen Qn (U) 0.2 {Mikel'U}/dL Normal 0.2 - 1. 0 [facility] Comment on above: Performed By: #### U KIM, MG, PHOS #### [facility] [address] [place] [address] Dr. Andrea Mccarthy WBC NONE SEEN Normal NONE SEEN [facility] Comment on above: Performed By: #### U KIM, MG, PHOS #### [facility] [address] [place] [address] Dr. Andrea Mccarthy URIC ACID SERUMon 11-14-2021 Urate [Mass/Vol] 5.0 mg/dL Normal 2.6-6.0 [facility] Comment on above: Performed By: #### U KIM, MG, PHOS #### [facility] [address] [place] [address] Dr. Andrea Mccarthy URINE T PROTEIN CREAT RATIOo n 11-14-2021 Protein (U) [Mass/Vol] 22.3 mg/dL Critically high <=12.0 [facility] Comment on above: Performed By: #### U KIM, MG, PHOS #### [facility] [address] [address] [address] Andrea Mccarthy UR PROT CREAT RAT 0.15 Normal [facility] Comment on above: Performed By: #### U KIM, MG, PHOS #### [facility] [address] [place] [address] Dr. Andrea Mccarthy URINE CREAT 151.50 mg/dL Normal 20.00-300.0 0 [facility] Comment on above: Performed By: #### U KIM, MG, PHOS #### [facility] [address] [address] [address] Andrea Mccarthy Vital Signs Date Time Vital Sign Value Performing Clinician Facility 12-24-2024 11:23-0400 Diastolic blood pressure 98 mm[Hg] Yaritza Lopez [employer] Work Phone: [facility] 12-24-2024 11:23-0400 Heart rate 92 /min Yaritzago Lopez [employer] Work Phone: [facility] 12-24-2024 11:23-0400 Respiratory rate 18 /min Yaritza Lopez [employer] Work Phone: [facility] 12-24-2024 11:23-0400 SaO2% (BldA) [Mass fraction] 98 % Yaritzago Lopez [employer] Work Phone: [facility] 12-24-2024 11:23-0400 Systolic blood pressure 133 mm[Hg] Yaritzago Vlaeriomer [employer] Work Phone: [facility] 12-24-2024 09:21-0400 Body height 162.56 cm Yaritza Valeriomer [employer] Work Phone: [facility] 12-24-2024 09:21-0400 Body weight 78.01 kg Yaritza Lopez [employer] Work Phone: [facility] 11-12-2024 11:02-0400 Body height 162.56 cm Yaritzago Valeriomer [employer] Work Phone: [facility] 11-12-2024 11:02-0400 Body mass index (BMI) [Ratio] 30.2 kg/m2 Yaritzago Lopez [employer] Work Phone: [facility] 11-12-2024 11:02-0400 Body temperature 97.1 [degF] Yaritza Lopez [employer] Work Phone: [facility] 11-12-2024 11:02-0400 Body weight 80 kg Yaritza John [employer] Work Phone: [facility] 11-12-2024 11:02-0400 Diastolic blood pressure 92 mm[Hg] Yaritza John [employer] Work Phone: [facility] 11-12-2024 11:02-0400 Heart rate 103 /min Yaritzago Valeriomer [employer] Work Phone: [facility] 11-12-2024 11:02-0400 Heart rate 93 /min Yaritza Lopez [employer] Work Phone: [facility] 11-12-2024 11:02-0400 Respiratory rate 18 /min Yaritza Valeriomer [employer] Work Phone: [facility] 11-12-2024 11:02-0400 SaO2% (BldA) [Mass fraction] 98 % Yaritza Lopez [employer] Work Phone: [facility] 11-12-2024 11:02-0400 Systolic blood pressure 135 mm[Hg] Yaritzago Valeriomer [employer] Work Phone: [facility] 07-17-2024 17:52-0400 Body height 162.56 cm [facility] 07-17-2024 17:52-0400 Body mass index (BMI) [Ratio] 30.5 kg/m2 [facility] 07-17-2024 17:52-0400 Body temperature 97.8 [degF] [facility] 07-17-2024 17:52-0400 Body weight 80.79 kg [facility] 07-17-2024 17:52-0400 Diastolic blood pressure 87 mm[Hg] [facility] 07-17-2024 17:52-0400 Heart rate 104 /min [facility] 07-17-2024 17:52-0400 Respiratory rate 18 /min [facility] 07-17-2024 17:52-0400 SaO2% (BldA) [Mass fraction] 94 % [facility] 07-17-2024 17:52-0400 Systolic blood pressure 130 mm[Hg] [facility] 06-29-2024 13:34-0400 Body height 162.56 cm [facility] 06-29-2024 13:34-0400 Body mass index (BMI) [Ratio] 30.2 kg/m2 [facility] 06-29-2024 13:34-0400 Body temperature 97.6 [degF] [facility] 06-29-2024 13:34-0400 Body weight 80.05 kg [facility] 06-29-2024 13:34-0400 Diastolic blood pressure 79 mm[Hg] [facility] 06-29-2024 13:34-0400 Heart rate 68 /min [facility] 06-29-2024 13:34-0400 Respiratory rate 19 /min [facility] 06-29-2024 13:34-0400 SaO2% (BldA) [Mass fraction] 97 % [facility] 06-29-2024 13:34-0400 Systolic blood pressure 141 mm[Hg] [facility] 05-12-2024 10:59-0500 Body height 162.56 cm [facility] 05-12-2024 10:59-0500 Body mass index (BMI) [Ratio] 30.2 kg/m2 [facility] 05-12-2024 10:59-0500 Body weight 80 kg [facility] 05-12-2024 10:59-0500 Diastolic blood pressure 80 mm[Hg] [facility] 05-12-2024 10:59-0500 Heart rate 87 /min [facility] 05-12-2024 10:59-0500 Respiratory rate 16 /min [facility] 05-12-2024 10:59-0500 SaO2% (BldA) [Mass fraction] 96 % [facility] 05-12-2024 10:59-0500 Systolic blood pressure 117 mm[Hg] [facility] 05-03-2024 09:59-0500 Body height 162.56 cm [facility] 05-03-2024 09:59-0500 Body mass index (BMI) [Ratio] 30 kg/m2 [facility] 05-03-2024 09:59-0500 Body temperature 97.3 [degF] [facility] 05-03-2024 09:59-0500 Body weight 79.49 kg [facility] 05-03-2024 09:59-0500 Diastolic blood pressure 82 mm[Hg] [facility] 05-03-2024 09:59-0500 Heart rate 110 /min [facility] 05-03-2024 09:59-0500 Respiratory rate 16 /min [facility] 05-03-2024 09:59-0500 SaO2% (BldA) [Mass fraction] 95 % [facility] 05-03-2024 09:59-0500 Systolic blood pressure 121 mm[Hg] [facility] 11-11-2023 12:58-0400 Body height 162.56 cm [facility] 11-11-2023 12:58-0400 Body mass index (BMI) [Ratio] 30 kg/m2 [facility] 11-11-2023 12:58-0400 Body weight 79.37 kg [facility] 11-11-2023 12:58-0400 Diastolic blood pressure 88 mm[Hg] [facility] 11-11-2023 12:58-0400 Systolic blood pressure 136 mm[Hg] [facility] 10-19-2023 12:21-0400 Body height 162.56 cm [facility] 10-19-2023 12:21-0400 Body mass index (BMI) [Ratio] 30.4 kg/m2 [facility] 10-19-2023 12:21-0400 Body temperature 98.3 [degF] [facility] 10-19-2023 12:21-0400 Body weight 80.39 kg [facility] 10-19-2023 12:21-0400 Heart rate 82 /min [facility] 10-19-2023 12:21-0400 Respiratory rate 16 /min [facility] 10-19-2023 12:21-0400 SaO2% (BldA) [Mass fraction] 96 % [facility] 05-21-2023 10:40-0500 Body height 162.56 cm Audie Dionne Other [facility] Other 05-21-2023 10:40-0500 Body mass index (BMI) [Ratio] 29.59 kg/m2 Audie Dionne Other [facility] Other 05-21-2023 10:40-0500 Body temperature 96.3 [degF] Audie Dionne Other [facility] Other 05-21-2023 10:40-0500 Body weight 78.2 kg Audie Dionne Other [facility] Other 05-21-2023 10:40-0500 Diastolic blood pressure 80 mm[Hg] Audie Dionne Other [facility] Other 05-21-2023 10:40-0500 Respiratory rate 18 /min Audie Dionne Other [facility] Other 05-21-2023 10:40-0500 SaO2% (BldA) [Mass fraction] 98 % Audie Dionne Other [facility] Other 05-21-2023 10:40-0500 Systolic blood pressure 118 mm[Hg] Audie Dionne Other [facility] Other 11-19-2022 11:00-0400 Body height 162.56 cm Audie Dionne Other [facility] Other 11-19-2022 11:00-0400 Body mass index (BMI) [Ratio] 28.9 kg/m2 Audie Dionne Other [facility] Other 11-19-2022 11:00-0400 Body temperature 96 [degF] Audie Dionne Other [facility] Other 11-19-2022 11:00-0400 Body weight 76.39 kg Audie Dionne Other [facility] Other 11-19-2022 11:00-0400 Diastolic blood pressure 81 mm[Hg] Audie Dionne Other [facility] Other 11-19-2022 11:00-0400 Respiratory rate 18 /min Audie Dionne Other [facility] Other 11-19-2022 11:00-0400 SaO2% (BldA) [Mass fraction] 98 % Audie Dionne Other [facility] Other 11-19-2022 11:00-0400 Systolic blood pressure 132 mm[Hg] Audie Dionne Other [facility] Other 07-02-2022 14:17-0400 Blood Pressure Location Iván TOMLIN [facility] 07-02-2022 14:17-0400 Diastolic blood pressure 88 mm[Hg] Iván TOMLIN [facility] 07-02-2022 14:17-0400 Heart rate 71 /min Iván TOMLIN [facility] 07-02-2022 14:17-0400 Systolic blood pressure 128 mm[Hg] Iván TOMLIN [facility] 05-29-2022 10:40-0500 Body height 162.56 cm Audie Dionne Other [facility] Other 05-29-2022 10:40-0500 Body mass index (BMI) [Ratio] 28.22 kg/m2 Audie Dionne Other [facility] Other 05-29-2022 10:40-0500 Body temperature 96.3 [degF] Audie Dionne Other [facility] Other 05-29-2022 10:40-0500 Body weight 74.57 kg Audie Dionne Other [facility] Other 05-29-2022 10:40-0500 Diastolic blood pressure 81 mm[Hg] Audie Dionne Other [facility] Other 05-29-2022 10:40-0500 Respiratory rate 18 /min Audie Dionne Other [facility] Other 05-29-2022 10:40-0500 SaO2% (BldA) [Mass fraction] 98 % Audie Dionne Other [facility] Other 05-29-2022 10:40-0500 Systolic blood pressure 125 mm[Hg] Audie Dionne Other [facility] Other 11-21-2021 12:40-0400 Body height 162.56 cm Audie Dionne Other [facility] Other 11-21-2021 12:40-0400 Body mass index (BMI) [Ratio] 28.22 kg/m2 Audie Dionne Other [facility] Other 11-21-2021 12:40-0400 Body temperature 96.8 [degF] Audie Dionne Other [facility] Other 11-21-2021 12:40-0400 Body weight 74.57 kg Audie Dionne Other [facility] Other 11-21-2021 12:40-0400 Diastolic blood pressure 79 mm[Hg] Audie Dionne Other [facility] Other 11-21-2021 12:40-0400 Respiratory rate 18 /min Audie Dionne Other [facility] Other 11-21-2021 12:40-0400 SaO2% (BldA) [Mass fraction] 98 % Audie Dionne Other [facility] Other 11-21-2021 12:40-0400 Systolic blood pressure 117 mm[Hg] Audie Dionne Other [facility] Other 06-01-2021 16:20-0500 Body height 162.56 cm Audie Dionne Other [facility] Other 06-01-2021 16:20-0500 Body mass index (BMI) [Ratio] 30.89 kg/m2 Audie Dionne Other [facility] Other 06-01-2021 16:20-0500 Body temperature 96.5 [degF] Audie Dionne Other [facility] Other 06-01-2021 16:20-0500 Body weight 81.65 kg Audie Dionne Other [facility] Other 06-01-2021 16:20-0500 Diastolic blood pressure 80 mm[Hg] Audie Dionne Other [facility] Other 06-01-2021 16:20-0500 Respiratory rate 18 /min Uadie Dionne Other [facility] Other 06-01-2021 16:20-0500 SaO2% (BldA) [Mass fraction] 98 % Audie Dionne Other [facility] Other 06-01-2021 16:20-0500 Systolic blood pressure 119 mm[Hg] Audie Dionne Other [facility] Other 03-27-2021 16:20-0500 Body height 162.56 cm Audie Dionne Other [facility] Other 03-27-2021 16:20-0500 Body mass index (BMI) [Ratio] 31.55 kg/m2 Audie Dionne Other [facility] Other 03-27-2021 16:20-0500 Body temperature 96.5 [degF] Audie Dionne Other [facility] Other 03-27-2021 16:20-0500 Body weight 83.37 kg Audie Dionne Other [facility] Other 03-27-2021 16:20-0500 Diastolic blood pressure 80 mm[Hg] Audie Dionne Other [facility] Other 12-06-2021 16:20-0500 Respiratory rate 18 /min Audie Dionne Other [facility] Other 03-27-2021 16:20-0500 SaO2% (BldA) [Mass fraction] 99 % Audie Dionne Other [facility] Other 03-27-2021 16:20-0500 Systolic blood pressure 119 mm[Hg] Audie Dionne Other [facility] Other Encounters Encounter Date Encounter Type Care Provider Facility Start: 12-24-2024 End: 12-24-2024 Admission to same day surgery center Yi Durham MD -CT Scan [facility] [place] Work Phone: Start: 12-24-2024 End: 12-24-2024 ambulatory Yaritza Lopez [employer]C Work Phone: [facility] Work Phone: Start: 11-12-2024 End: 11-12-2024 ambulatory Yaritza Lopez [employer]PER[employer]C Work Phone: [facility] Work Phone: Start: 11-12-2024 End: 11-12-2024 Patient encounter procedure Audie Truong MD -[facility] Work Phone: Start: 11-04-2024 Non-patient / Non-visit Audie Truong MD -[facility] Professional [employer] Work Phone: Start: 07-17-2024 End: 07-17-2024 ambulatory [facility] Work Phone: Start: 07-17-2024 End: 07-17-2024 Patient encounter procedure [facility] [place] Work Phone: Start: 06-29-2024 End: 06-29-2024 ambulatory [facility] Work Phone: Start: 06-29-2024 End: 06-29-2024 Patient encounter procedure [facility] [place] Work Phone: Start: 05-12-2024 End: 05-12-2024 ambulatory [facility] Work Phone: Start: 05-12-2024 End: 05-12-2024 Patient encounter procedure [facility] [place] Work Phone: Start: 05-05-2024 Non-patient / Non-visit [facility] Work Phone: Start: 05-03-2024 End: 05-03-2024 ambulatory [facility] Work Phone: Start: 05-03-2024 End: 05-03-2024 Patient encounter procedure [facility] [place] Work Phone: Start: 11-11-2023 End: 11-11-2023 ambulatory [facility] Work Phone: Start: 11-11-2023 End: 11-11-2023 Patient encounter procedure [facility] Work Phone: Start: 11-07-2023 Non-patient / Non-visit [facility] Work Phone: Start: 10-19-2023 End: 10-19-2023 ambulatory [facility] Work Phone: Start: 10-19-2023 End: 10-19-2023 Patient encounter procedure [facility] Work Phone: Start: 05-21-2023 End: 05-21-2023 ambulatory Audie Dionne Other [facility] [employer] Other Start: 05-21-2023 Office outpatient vi sit 25 minutes Audie Dionne [facility] Start: 11-19-2022 End: 11-19-2022 ambulatory Audie Dionne Other [facility] Other Start: 11-19-2022 Office outpatient vi sit 15 minutes Audie Dionne [facility] Start: 09-06-2022 ambulatory YARITZA LOPEZ Facility: [facility] Start: 07-17-2022 End: 07-18-2022 ambulatory Iván TOMLIN [facility] Start: 07-17-2022 End: 07-17-2022 Patient encounter procedure Iván TOMLIN [facility] Start: 07-07-2022 End: 07-08-[address] IVÁN TOMLIN . Facility:[facility] Start: 07-02-2022 End: 07-03-2022 ambulatory MD AUDIE TRUONG Facility: [facility] Start: 07-02-2022 End: 07-02-2022 Patient encounter procedure Iván TOMLIN [facility] [place] Start: 05-31-2022 ambulatory MD BRONSON DIONNE Facility :[facility] [place] Start: 05-29-2022 End: 05-29-2022 ambulatory Audie Dionne Other [facility] Other Start: 05-29-2022 Office outpatient vi sit 25 minutes Audie Dionne [facility] Start: 05-21-2022 End: 05-22-2022 ambulatory YARITZA LOPEZ Facility:[facility] Start: 12-30-2021 End: 12-31-2021 ambulatory YARITZA LOPEZ Facility:[facility] Start: 11-21-2021 End: 11-21-2021 ambulatory Audie Dionne Other [facility] Other Start: 11-21-2021 Office outpatient vi sit 25 minutes Audie Dionne [facility] Start: 11-14-2021 End: 11-15-2021 ambulatory AUDIE DIONNE Facility:[facility] Start: 06-02-2021 End: 06-02-2021 ambulatory Audie Dionne Other [facility] Other Start: 06-02-2021 Telephone encounter Audie Dionne [facility] Start: 06-01-2021 End: 06-01-2021 ambulatory Audie Dionne Other [facility] Other Start: 06-01-2021 Office outpatient vi sit 25 minutes Audie Dionne [facility] Start: 03-27-2021 End: 03-27-2021 ambulatory Audie Dionne Other [facility] Other Start: 03-27-2021 Office outpatient ne w 45 minutes Audie Dionne [facility] Procedures Date Procedure Procedure Detail Performing Clinician Start: 01-08-2019 Esophagogastroduodenoscopy Iván TOMLIN Abdominal hysterectomy Clarence TOMLIN Appendectomy Iván TOMLIN Colonoscopy Iván TOMLIN Plan of Treatment Date Care Activity Detail Author Start: 12-24-2024 [facility] Start: 12-24-2024 [facility] Start: 12-24-2024 Bone marrow sampling [facility] Start: 11-12-2024 Patient referral [facility] Work Phone: Patient Education [facility] Bone Marrow Aspiration or Biopsy Know your [facility] Work Phone: Patient referral [facility] Work Phone: Renal function 1999 panel - Serum or Plasma [facility] Renal function 1999 panel - Serum or Plasma [facility] Renal function 1999 panel - Serum or Plasma [facility] Payers Date Payer Category Payer Self-pay [id number] Private Health Insurance [id number] 1950 Unknown [id number] 2.16.8 [id number] 1950 Unknown [id number] 2.16.8 [id number] 1950 Unknown [id number] 2.16.84 [id number] 1950 Unknown [id number] 2.16.84 [id number] 1952 Unknown [id number] 2.16.84 [id number] 1952 Unknown [id number] 2.16.84 [id number] 1950 Unknown [id number] 2.16.84 [id number] 1950 Unknown [id number] 2.16.84 [id number] Unknown [id number] Unknown [id number] 2.16.8 [id number] Social History Date Type Detail [facility] Start: 1950 Sex Assigned At Female [facility] Sex Assigned At [facility] Start: 07-02-2022 End: 12-24-2024 Tobacco smoking status Never smoked tobacco (finding) [facility] Tobacco smoking status Never [facility] Start: 05-03-2024 End: 07-17-2024 Sex Female (finding) [facility] Goals Date Patient Goal Desired Activity /State Functional Status Date Assessment Result Facility 07-02-2022 Functional Status N/A [facility] Clinical Notes 03-27-2021 to 11-12-2024 Note [...] Oct 11:00am Secondary hyperparathyroidism acute November 12, 11:00am Thrombocytopenia acute October 11:00am [facility] Work Phone: 1(237) 122-236701-12-2025 Evaluation note* Diagnosis Onset Date Resolution Status [...] Secondary hyperparathyroidism acute May 12, 2024 10:48am [facility] Work Phone: 1(278) 874-486101-12-2025 Evaluation note* Diagnosis Onset Date Resolution Status [...] 29 1:17pm [facility] Work Phone: 1(144) 788-898801-30-2024 Evaluation note* Encounter Date Diagnosis Assessment Notes [...] stain. Monitor LFTs and lipid profile periodically. [facility] Other 07-31-2023 Evaluation note* Encounter Date Diagnosis [...] advised to have repeat in 5 yrs [facility] Other [id number] Note [id number]:127[facility] 07-17-2022 Hospital Discharge instructions Patient [...] [facility] [address] [place] [address]- Business (1) When: Unknown Comments:Call for any problems. [facility]03-28-2023 NoteCustom Cystoscopy ? Voiding after [...] have a fever over [address] 07-02-2022 NoteChief Complaint Pt here [...] [facility] [address], [place] [address]- Additional Instructions: schedule cysto, CHRIS Patient Education [...] tab(s), Oral, q6hr fluticasone 0.05 mg/inh Nasal [place], 2 spray(s), Nasal, Daily (more content not included)...[facility]Result Comment: Electronically Signed By: Iván TOMLIN MD\.br\Date and Time Signed: 07/02/22 14:52 EDT\.br\Electronically Co-Signed By: Moira Estrada\.br\Date and Time Co-Signed: 07/02/22 14:50 [id number] Hospital Discharge instructions Patient Education 07/02/2022 14:22:27 [...] Follow these instructions at home: Medicines Take mvbk-ame-odxqlne and prescription medicines only as told by [...] or the blood stops without treatment. Take iakn-gac-tichbee and prescription medicines only as told by your health care provider. Drink enough fluid to keep your urine clear or pale yellow. This information is not intended to replace advice given to you by your health care provider. Make sure you discuss any questions you have with your health care provider. Document Released: 04/08/2006 Document Revised: 09/02/2019 Document Reviewed: 05/11/2017 [employer] Patient Education 2019 [employer]. Follow Up Care 05/31/2022 13:31:32 With:KELLY BLACKMON, Iván Hsu, SHI Address: [facility] [address], [place] [address]- When: Unknown [facility] 02-07-2023 Evaluation note* Encounter Date Diagnosis [...] advised to have repeat in 5 yrs [facility] Other 08-02-2022 Evaluation note* Encounter Date Diagnosis [...] stain. Monitor LFTs and lipid profile periodically. [facility] Other 02-10-2022 Evaluation note* Encounter Date Diagnosis [...] stain. Monitor LFTs and lipid profile periodically. [facility] Other 12-06-2021 Evaluation note* Encounter Date Diagnosis [...] PCP. Mar, Dyslipidemia (ICD-10 - E78.5) Continue [facility]. Monitor LFTs and lipid profile periodically. [facility] Other Evaluation + Plan note Future Appointments Appointment Date:07/10/2022 11:30:00 AM Scheduled Provider: Location:[facility] Appointment Type:Urology CALL PAT FT Appointment Date:07/17/2022 08:45:00 AM Scheduled Provider: Location:[facility] Appointment Type:Urology FT Diagnostic Tests Pending * Urine Cytology ([facility]) 07/02/22 [facility] evaluation noteNo Assessments Information Available [facility] noteNo InformationNort [employer] Other Evaluation noteNo assessment information available [facility] Work Phone: Evaluation note* Diagnosis Onset Date Resolution Status Maxillary sinusitis, acute a cute Anemia of renal disease acut e CKD (chronic kidney disease) stage 3, GFR 30-59 ml/min acute Hyperlipidemia acute [id number] acute Hypomagnesemia acute Secondary hyperparathyroidism acute [facility] Work Phone: Evaluation note* [...] 12, 2024 11:00am Thrombocytopenia acute October 11:00am [facility] Work Phone: History general Narrative - Reported* Type Description Date Medical History HTN Medical History Hypothyroidism Medical History hyperlipidemia Medical History acid reflux Medical History anxiety Medical History PRE DIABETIC Medical History mixed hypercholestolemia Medical History CKD STAGE 3 Medical History INSOMNIA Surgical History hysterectomy, total with BSO Surgical History fallopian tube removed Hospitalization History see above hx Hospitalization History [facility] Hisvzyn general Narrative - Reported* Type Description Date [...] History see above hx Hospitalization History [facility] Other Hospital course Narrative No data available for this section [facility] Hospital Discharge instructionsAmbulatory Orders* Referral to Hematology Time Frame: 11/12/24, Location: None [facility] Work Phone: Progress note No data available for this section [facility] reason for referral (narrative)No reason for referral [facility] Phone: Summary Purpose Family History No [...] disease) stage 3, GFR 30-59 ml/min Hyperlipidemia [id number] Hypomagnesemia Secondary hyperparathyroidism Chief Complaint Admit Date [...] Guevara Primary Care Provider Active Team Status: Active [...] Member Role Status Dates Yaritza Lopez , [employer]PERATOR-C Primary Care Provider Active Start: October 19, 2023 End: October 19, 2023 Marianne Ragsdale APRN Attending Provider Active Start: October 19, 2023 End: October 19, 2023 Team Status: Active Member Role Status Dates Yaritza Lopez , [employer] OPERATOR-C Primary Care Provider Active Start: November 07, 2023 Audie Truong MD Attending Provider Active Start : November 07, 2023 Team Status: Inactive Member Role Status Dates Yaritza Lopez , [employer] OPERATOR-C Primary Care Provider Active Start: November 11, 2023 End: November 11, 2023 Audie Truong MD Attending Provider Active Start : November 11, 2023 End: November 11, 2023 Team Status: Inactive Member Role Status Dates Yaritza Lopez , [employer] OPERATOR-C Primary Care Provider Active Start: May 03, 2024 End: May 03, 2024 Ella Monsalve APRN Attending Provider Active S tart: May 03, 2024 End: May 03, 2024 Team Status: Active Member Role Status Dates Yaritza Lopez [employer] OPERATOR-C Primary Care Provider Active Start: May 05, 2024 Audie Truong MD Attending Provider Active Start : May 05, 2024 Team Status: Inactive Member Role Status Dates Yaritza Lopez , [employer] OPERATOR-C Primary Care Provider Active Start: May 12, 2024 End: May 12, 2024 Audie Truong MD Attending Provider Active Start : May 12, 2024 End: May 12, 2024 Team Status: Inactive Member Role Status Dates Yaritza Lopez , [employer] OPERATOR-C Primary Care Provider Active Start: June 29, 2024 End: June 29, 2024 Marianne Ragsdale APRN Attending Provider Active Start: June 29, 2024 End: June 29, 2024 Team Status: Inactive Member Role Status Dates Yaritza Lopez , [employer] OPERATOR-C Primary Care Provider Active Start: July 17, 2024 End: July 17, 2024 Juani Gagnon APRN Attending Provider Active Start: July 17, 2024 End: July 17, 2024 Team Status: Inactive Member Role Status Dates LILIANA Guevara Primary Care Provider Active Start: December 24, 2024 End: December 24, 2024 Yi Durham MD Attending Provider Active St art: December 24, 2024 End: December 24, 2024 INFORMATION SOURCE (unrecogn ized section and content) DATE CREATED AUTHOR 07/24/[address] [facility] DATE CREATED AUTHOR AUTHOR'S ORGANIZ ATION 09/05/2022 [facility] DATE CREATED AUTHOR AUTHOR'S ORGANIZ ATION 01/01/2025 [facility] Goals (unrecognized section and content) Goals [...] BE BASED ON THE PRIMARY CLINICAL RECORDS. [employer] provides no warranty or guarantee of the accuracy or completeness of information in this document.
== END 2025-01-19 23:59 | disposition home or self-care (01) ==
LOC: HEMC 08:35
PROVIDERS: PCP Nurse Practitioner Family; Visit Provider Internal Medicine Hematology & Oncology
DX: D69.6 Thrombocytopenia, unspecified (principal); E03.9 Hypothyroidism, unspecified; I12.9 Hypertensive chronic kidney disease with stage 1 through stage 4 chronic kidney disease, or unspecified chronic kidney disease; N18.9 Chronic kidney disease, unspecified; M81.0 Age-related osteoporosis without current pathological fracture; K21.9 Gastro-esophageal reflux disease without esophagitis; E78.5 Hyperlipidemia, unspecified; Z79.899 Other long term (current) drug therapy; Z87.442 Personal history of urinary calculi; Z90.710 Acquired absence of both cervix and uterus; J45.909 Unspecified asthma, uncomplicated; Z90.49 Acquired absence of other specified parts of digestive tract; Z98.51 Tubal ligation status; D64.9 Anemia, unspecified; D50.9 Iron deficiency anemia, unspecified; G62.89 Other specified polyneuropathies; E53.8 Deficiency of other specified B group vitamins; C90.00 Multiple myeloma not having achieved remission
CPT/HCPCS: G0463

== ENCOUNTER 2025-02-16 09:25 | Outpatient (RCR) | payer MEDICARE, SELFPAY ==
[2025-01-25 09:53] LABS: Hematocrit 35.9 % (36.0-48.0); Hemoglobin 11.3 g/dL (12.0-16.0); Immature Granulocytes Abs Auto 0.02 10^3/uL (0.00-0.03); Immature Granulocytes Pct Auto 0.3 % (0.0-0.5); Lymphocytes Absolute Auto 1.7 10^3/uL (1.2-3.8); Mean Corpuscular HGB Conc 31.5 g/dL (29.9-35.2); Mean Corpuscular Hemoglobin 27.6 pg (26.7-34.0); Mean Corpuscular Volume 87.8 fL (81.0-99.0); Platelet Count 137 10^3/uL (150-450); Red Blood Count 4.09 10^6/uL (4.20-5.40); White Blood Count 7.3 10^3/uL (4.0-11.0)
[2025-01-25 10:30] LABS: Alanine Aminotransferase 17 U/L (14-59); Albumin Globulin Ratio 0.6; Albumin Level 3.0 g/dL (3.4-5.0); Alkaline Phosphatase 60 U/L (46-116); Anion Gap 13.0; Aspartate Amino Transferase 11 U/L (15-37); Blood Urea Nitrogen 22.0 mg/dL (7.0-18.0); Calcium 8.3 mg/dL (8.5-10.1); Carbon Dioxide 28.9 mmol/L (21.0-32.0); Chloride 105 mmol/L (98-107); Estimated GFR (African America 46 (>=60 mL/min/1.73m^2); Estimated GFR (Non-African Ame 38 (>=60 mL/min/1.73m^2); Globulin 5.0 g/dL; Glucose 117 mg/dL (74-106); Potassium 3.9 mmol/L (3.5-5.1); Sodium 143 mmol/L (136-145); TSH W/ REFLEX FT4 0.957 uIU/mL (0.358-3.740); Total Protein 8.0 g/dL (6.4-8.2)
--- NOTE | 2025-01-25 11:33 | PC.NURSE ---
0930 Arrival for chemo teach, accompanies. Lab in to draw lab orders needed prior to initiation of chemotherapy. Patient has not heard from specialty Pharmacy regarding revlimid, we contacted her specialty pharmacy, they set up delivery time as well as completing financial, and educational regarding revlimid. Educated patient on disease process, as well as all new medications Daratumumab, revlimid, dexamethasone. Educated on s/s to watch for when taking prescribed meds as well as when to report symptoms. Also educated on home treatment regimes for nause, vomiting, diarrhea and constipation. educated on OTC meds to have at home to treat these conditions. Patient and Thankful for time spent in education proccess. Encouraged patient to write down questions as they come up. Also given our direct number to contact as needed for any questions or concerns.
[2025-02-02 09:40] VITALS: BP 145/87; PULSE 84; TEMP 36; O2SAT 95
[2025-02-02 10:06] LABS: Hematocrit 34.8 % (36.0-48.0); Hemoglobin 10.9 g/dL (12.0-16.0); Immature Granulocytes Abs Auto 0.03 10^3/uL (0.00-0.03); Immature Granulocytes Pct Auto 0.4 % (0.0-0.5); Lymphocytes Absolute Auto 1.6 10^3/uL (1.2-3.8); Mean Corpuscular HGB Conc 31.3 g/dL (29.9-35.2); Mean Corpuscular Hemoglobin 27.0 pg (26.7-34.0); Mean Corpuscular Volume 86.4 fL (81.0-99.0); Platelet Count 118 10^3/uL (150-450); Red Blood Count 4.03 10^6/uL (4.20-5.40); White Blood Count 6.9 10^3/uL (4.0-11.0)
--- NOTE | 2025-02-02 10:18 | PC.NURSE ---
0940: Pt. to [facility] amb for chemo. Seated in recliner. VSS. IV initiated without difficulty. Blood drawn for ordered labs. Pt. tolerates without c/o. Assessment completed. Given water and warm blanket. at chairside.
[2025-02-02] MEDS: 0.9 % SODIUM CHLORIDE 250 ML 10 ML IV (10:30)
[2025-02-02 11:10] LABS: Alanine Aminotransferase 16 U/L (14-59); Albumin Globulin Ratio 0.6; Albumin Level 2.9 g/dL (3.4-5.0); Alkaline Phosphatase 61 U/L (46-116); Anion Gap 16.3; Aspartate Amino Transferase 13 U/L (15-37); Blood Urea Nitrogen 14.0 mg/dL (7.0-18.0); Calcium 8.5 mg/dL (8.5-10.1); Carbon Dioxide 27.4 mmol/L (21.0-32.0); Chloride 104 mmol/L (98-107); Estimated GFR (African America 43 (>=60 mL/min/1.73m^2); Estimated GFR (Non-African Ame 35 (>=60 mL/min/1.73m^2); Globulin 5.0 g/dL; Glucose 76 mg/dL (74-106); Potassium 3.7 mmol/L (3.5-5.1); Sodium 144 mmol/L (136-145); Total Protein 7.9 g/dL (6.4-8.2)
[2025-02-02] MEDS: ACETAMINOPHEN 500 MG TABLET 1000 MG PO (11:29)
[2025-02-02] MEDS: DIPHENHYDRAMINE HCL IV (11:30)
[2025-02-02] MEDS: [UNRECOGNIZED DRUG - OTHER] IV (11:30)
[2025-02-02] MEDS: DEXAMETHASONE SODIUM PHOSPHATE IV (11:30)
[2025-02-02] MEDS: DARATUMUMAB IV (12:03)
[2025-02-02] MEDS: SODIUM CHLORIDE 0.9% IV (12:03)
--- NOTE | 2025-02-02 13:19 | PC.NURSE ---
1040: Breakfast tray provided. Denies needs or c/o. Awaiting results of labs. 1129: Pre-meds given at this time. IV site remains clear. Up to bathroom to void.
--- NOTE | 2025-02-02 13:21 | PC.NURSE ---
1203: IV Darzalex initiated at this time. Pt. relays feeling drowsy. Attempts to nap. 1303: Darzalex rate increased per protocol.
--- NOTE | 2025-02-02 14:04 | PC.NURSE ---
1355: Dr. Durham to chairside to see pt. Questions addressed. Pt cont to tolerate infusion without c/o or s&s of adverse reaction.
--- NOTE | 2025-02-02 14:49 | PC.NURSE ---
Pt. without c/o. Denies needs. IV site clear.
[2025-02-02 16:08] VITALS: BP 116/73; PULSE 84; TEMP 36.6; O2SAT 94
[2025-02-03 09:40] VITALS: BP 118/77; PULSE 107; TEMP 36.4; O2SAT 93
[2025-02-03] MEDS: 0.9 % SODIUM CHLORIDE 250 ML 20 ML IV (09:59)
[2025-02-03] MEDS: DIPHENHYDRAMINE HCL IV (09:59)
[2025-02-03] MEDS: DEXAMETHASONE SODIUM PHOSPHATE IV (09:59)
[2025-02-03] MEDS: [UNRECOGNIZED DRUG - OTHER] IV (09:59)
[2025-02-03] MEDS: ACETAMINOPHEN 500 MG TABLET 1000 MG PO (09:59)
[2025-02-03] MEDS: DARATUMUMAB IV (10:41)
[2025-02-03] MEDS: SODIUM CHLORIDE 0.9% IV (10:41)
--- NOTE | 2025-02-03 10:51 | PC.NURSE ---
1041: Pre-meds infused. IV Darzalex initiated at this time. Denies needs or c/o. at chairside. Menu provided.
--- NOTE | 2025-02-03 11:12 | PC.NURSE ---
Up to bathroom to void. Gait steady. Lunch tray ordered.
--- NOTE | 2025-02-03 12:38 | PC.NURSE ---
1210: Eating lunch tray. Denies c/o. IV site clear.
--- NOTE | 2025-02-03 14:25 | PC.NURSE ---
1330: Resting quietly with eyes closed. IV site clear. remains at chairside.
[2025-02-03 14:57] VITALS: BP 104/68; PULSE 63; TEMP 36.5; O2SAT 96
[2025-02-09 09:39] VITALS: BP 107/72; PULSE 91; TEMP 36.2; O2SAT 97
[2025-02-09 09:52] LABS: Hematocrit 38.3 % (36.0-48.0); Hemoglobin 12.3 g/dL (12.0-16.0); Immature Granulocytes Abs Auto 0.01 10^3/uL (0.00-0.03); Immature Granulocytes Pct Auto 0.1 % (0.0-0.5); Lymphocytes Absolute Auto 1.1 10^3/uL (1.2-3.8); Mean Corpuscular HGB Conc 32.1 g/dL (29.9-35.2); Mean Corpuscular Hemoglobin 27.8 pg (26.7-34.0); Mean Corpuscular Volume 86.5 fL (81.0-99.0); Platelet Count 149 10^3/uL (150-450); Red Blood Count 4.43 10^6/uL (4.20-5.40); White Blood Count 7.5 10^3/uL (4.0-11.0)
[2025-02-09] MEDS: 0.9 % SODIUM CHLORIDE 250 ML 20 ML IV (10:31)
[2025-02-09] MEDS: [UNRECOGNIZED DRUG - OTHER] IV (10:57)
[2025-02-09] MEDS: DEXAMETHASONE SODIUM PHOSPHATE IV (10:57)
[2025-02-09] MEDS: ACETAMINOPHEN 500 MG TABLET 1000 MG PO (10:57)
[2025-02-09] MEDS: DIPHENHYDRAMINE HCL IV (10:57)
[2025-02-09] MEDS: DARATUMUMAB IV (11:29)
[2025-02-09] MEDS: SODIUM CHLORIDE 0.9% IV (11:29)
[2025-02-09 12:54] VITALS: BP 95/58; PULSE 67; TEMP 36.4; O2SAT 95
--- NOTE | 2025-02-09 12:55 | PC.NURSE ---
awake at this time. alert oriented, ambulatory to bathroom, voids qs. returned to chair vs obtained, offers no complaints. iv infusion as ordered, tolerates well
--- NOTE | 2025-02-09 13:42 | PC.NURSE ---
up to bathroom, voids qs. ordered and eats piece of pie and cookie, remains at chairside with her. Offers no complaints
[2025-02-09 14:44] VITALS: BP 114/72; PULSE 69; TEMP 36.4; O2SAT 96
[2025-02-16 09:30] VITALS: BP 132/79; PULSE 93; TEMP 36.6; O2SAT 96
[2025-02-16 09:48] LABS: Hematocrit 36.3 % (36.0-48.0); Hemoglobin 11.5 g/dL (12.0-16.0); Immature Granulocytes Abs Auto 0.01 10^3/uL (0.00-0.03); Immature Granulocytes Pct Auto 0.2 % (0.0-0.5); Lymphocytes Absolute Auto 0.8 10^3/uL (1.2-3.8); Mean Corpuscular HGB Conc 31.7 g/dL (29.9-35.2); Mean Corpuscular Hemoglobin 27.4 pg (26.7-34.0); Mean Corpuscular Volume 86.6 fL (81.0-99.0); Platelet Count 231 10^3/uL (150-450); Red Blood Count 4.19 10^6/uL (4.20-5.40); White Blood Count 5.9 10^3/uL (4.0-11.0)
[2025-02-16] MEDS: 0.9 % SODIUM CHLORIDE 250 ML 20 ML IV (10:34)
[2025-02-16] MEDS: ACETAMINOPHEN 500 MG TABLET 1000 MG PO (10:55)
[2025-02-16] MEDS: [UNRECOGNIZED DRUG - OTHER] IV (10:57)
[2025-02-16] MEDS: DIPHENHYDRAMINE HCL IV (10:57)
[2025-02-16] MEDS: DEXAMETHASONE SODIUM PHOSPHATE IV (10:57)
[2025-02-16] MEDS: SODIUM CHLORIDE 0.9% IV (11:29)
[2025-02-16] MEDS: DARATUMUMAB IV (11:29)
--- NOTE | 2025-02-16 11:53 | PC.NURSE ---
1000: Breakfast tray provided. Denies needs. 1036: Dr. Durham to chairside. IV site remains clear.
--- NOTE | 2025-02-16 11:54 | PC.NURSE ---
1055: Pre-meds initiated at this time.
--- NOTE | 2025-02-16 11:55 | PC.NURSE ---
1129: IV Darzalex initiated as ordered. Pt. drowsy. Denies c/o or needs.
--- NOTE | 2025-02-16 14:26 | PC.NURSE ---
1235: Lunch tray provided. Denies needs or c/o. 1330: Resting quietly with eyes closed. Resp even and non-labored. IV site clear. Pt. without s&s of distress. 1430: Up to bathroom to void. Denies c/o or needs. remains at chairside.
[2025-02-16 15:46] VITALS: BP 115/72; PULSE 66; TEMP 36.5; O2SAT 93
== END 2025-02-19 23:59 | disposition home or self-care (01) ==
LOC: HEMC 09:25
PROVIDERS: PCP Nurse Practitioner Family; Visit Provider Internal Medicine Hematology & Oncology
DX: Z51.12 Encounter for antineoplastic immunotherapy (principal); C90.00 Multiple myeloma not having achieved remission; D69.6 Thrombocytopenia, unspecified; D64.9 Anemia, unspecified; D50.9 Iron deficiency anemia, unspecified; N18.9 Chronic kidney disease, unspecified; G62.89 Other specified polyneuropathies; R77.9 Abnormality of plasma protein, unspecified; K21.9 Gastro-esophageal reflux disease without esophagitis; I12.9 Hypertensive chronic kidney disease with stage 1 through stage 4 chronic kidney disease, or unspecified chronic kidney disease; E03.9 Hypothyroidism, unspecified; M81.0 Age-related osteoporosis without current pathological fracture; E78.5 Hyperlipidemia, unspecified; Z90.710 Acquired absence of both cervix and uterus; Z90.722 Acquired absence of ovaries, bilateral
CPT/HCPCS: 36415; 80053; 84443; 85025; 86317; 86704; 86850; 86900; 86901; 87340; 96367; 96413; 96415; 99211; G0463; J1100; J1200; J9145

== ENCOUNTER 2025-03-16 09:19 | Outpatient (RCR) | payer MEDICARE, SELFPAY ==
[2025-02-23 09:18] VITALS: BP 143/84; PULSE 85; TEMP 36.9; O2SAT 96
[2025-02-23] MEDS: 0.9 % SODIUM CHLORIDE 250 ML 10 ML IV (10:00)
[2025-02-23 10:03] LABS: Hematocrit 35.0 % (36.0-48.0); Hemoglobin 11.3 g/dL (12.0-16.0); Immature Granulocytes Abs Auto 0.02 10^3/uL (0.00-0.03); Immature Granulocytes Pct Auto 0.5 % (0.0-0.5); Lymphocytes Absolute Auto 0.9 10^3/uL (1.2-3.8); Mean Corpuscular HGB Conc 32.3 g/dL (29.9-35.2); Mean Corpuscular Hemoglobin 27.8 pg (26.7-34.0); Mean Corpuscular Volume 86.2 fL (81.0-99.0); Platelet Count 266 10^3/uL (150-450); Red Blood Count 4.06 10^6/uL (4.20-5.40); White Blood Count 3.9 10^3/uL (4.0-11.0)
[2025-02-23 10:19] LABS: Alanine Aminotransferase 28 U/L (14-59); Albumin Globulin Ratio 0.8; Albumin Level 3.0 g/dL (3.4-5.0); Alkaline Phosphatase 57 U/L (46-116); Anion Gap 13.7; Aspartate Amino Transferase 12 U/L (15-37); Blood Urea Nitrogen 12.0 mg/dL (7.0-18.0); Calcium 8.1 mg/dL (8.5-10.1); Carbon Dioxide 27.0 mmol/L (21.0-32.0); Chloride 101 mmol/L (98-107); Estimated GFR (African America 38 (>=60 mL/min/1.73m^2); Estimated GFR (Non-African Ame 31 (>=60 mL/min/1.73m^2); Globulin 3.6 g/dL; Glucose 89 mg/dL (74-106); Potassium 3.7 mmol/L (3.5-5.1); Sodium 138 mmol/L (136-145); Total Protein 6.6 g/dL (6.4-8.2)
[2025-02-23] MEDS: ACETAMINOPHEN 500 MG TABLET 1000 MG PO (10:32)
[2025-02-23] MEDS: [UNRECOGNIZED DRUG - OTHER] IV (10:33)
[2025-02-23] MEDS: DIPHENHYDRAMINE HCL IV (10:33)
[2025-02-23] MEDS: DEXAMETHASONE SODIUM PHOSPHATE IV (10:33)
[2025-02-23] MEDS: SODIUM CHLORIDE 0.9% IV (11:07)
[2025-02-23] MEDS: DARATUMUMAB IV (11:07)
--- NOTE | 2025-02-23 11:43 | PC.NURSE ---
1015: Breakfast tray provided. Denies needs.
--- NOTE | 2025-02-23 11:44 | PC.NURSE ---
1107: IV Darzalex initiated at this time. Pt. without c/o or needs.
--- NOTE | 2025-02-23 12:48 | PC.NURSE ---
Pt. given ice cream and feli. chip cookie per request. Denies c/o. VSS. IV site clear. remains at chairside.
[2025-02-23 14:16] VITALS: BP 97/63; PULSE 85; TEMP 36.7; O2SAT 95
--- NOTE | 2025-02-23 14:17 | PC.NURSE ---
1416: Pt. tolerating infusion without c/o. VSS. Up to bathroom. IV site remains clear.
[2025-02-23 15:20] VITALS: BP 106/58; PULSE 77; TEMP 36.7; O2SAT 93
[2025-02-24 09:55] VITALS: BP 119/77; PULSE 94; TEMP 36.4; O2SAT 95
[2025-02-24] MEDS: 0.9 % SODIUM CHLORIDE 1,000 ML 666.667 ML IV (10:01)
--- NOTE | 2025-02-24 10:38 | PC.NURSE ---
1030: Pt. up to bathroom. UA obtained and sent to lab. Informed pt. of Dr. Durham's orders to stop Losartan for 2 day, stop Bactrim and stop Revlimid until next week. Pt. relays understanding. IV NS cont. to infuse. IV site clear. Pt. denies needs.
[2025-02-24 10:50] LABS: Glucose Urine UA NEGATIVE (NEGATIVE)
[2025-02-25 15:08] LABS: Albumin 3.1 g/dL (2.9-4.4); Alpha-1-Globulin 0.3 g/dL (0.0-0.4); Alpha-2-Globulin 0.9 g/dL (0.4-1.0); Free Kappa Lt Chains,S 16.8 mg/L (3.3-19.4); Free Lambda Lt Chains,S 15.0 mg/L (5.7-26.3); Gamma Globulin 0.5 g/dL (0.4-1.8); Immunoglobulin A, Qn, Serum 684 mg/dL (64-422); Kappa/Lambda Ratio,S 1.12 (0.26-1.65)
[2025-03-02 08:57] VITALS: BP 120/84; PULSE 63; TEMP 36.2; O2SAT 98
[2025-03-02 09:19] LABS: Hematocrit 38.2 % (36.0-48.0); Hemoglobin 12.3 g/dL (12.0-16.0); Immature Granulocytes Abs Auto 0.03 10^3/uL (0.00-0.03); Immature Granulocytes Pct Auto 0.4 % (0.0-0.5); Lymphocytes Absolute Auto 2.0 10^3/uL (1.2-3.8); Mean Corpuscular HGB Conc 32.2 g/dL (29.9-35.2); Mean Corpuscular Hemoglobin 28.2 pg (26.7-34.0); Mean Corpuscular Volume 87.6 fL (81.0-99.0); Platelet Count 412 10^3/uL (150-450); Red Blood Count 4.36 10^6/uL (4.20-5.40); White Blood Count 7.4 10^3/uL (4.0-11.0)
[2025-03-02 09:41] LABS: Alanine Aminotransferase 25 U/L (14-59); Albumin Globulin Ratio 0.9; Albumin Level 3.2 g/dL (3.4-5.0); Alkaline Phosphatase 58 U/L (46-116); Anion Gap 14.0; Aspartate Amino Transferase 10 U/L (15-37); Blood Urea Nitrogen 16.0 mg/dL (7.0-18.0); Calcium 8.8 mg/dL (8.5-10.1); Carbon Dioxide 26.5 mmol/L (21.0-32.0); Chloride 103 mmol/L (98-107); Estimated GFR (African America 36 (>=60 mL/min/1.73m^2); Estimated GFR (Non-African Ame 29 (>=60 mL/min/1.73m^2); Globulin 3.7 g/dL; Glucose 93 mg/dL (74-106); Potassium 3.5 mmol/L (3.5-5.1); Sodium 140 mmol/L (136-145); Total Protein 6.9 g/dL (6.4-8.2)
--- NOTE | 2025-03-02 10:12 | PC.NURSE ---
0950: Dr. Durham notified of pt. labs.
--- NOTE | 2025-03-02 11:15 | PC.NURSE ---
1110: Dr. Durham to chairside for MD visit.
[2025-03-09 09:22] VITALS: BP 140/84; PULSE 93; TEMP 35.7; O2SAT 97
[2025-03-09 09:52] LABS: Hematocrit 36.7 % (36.0-48.0); Hemoglobin 11.8 g/dL (12.0-16.0); Immature Granulocytes Abs Auto 0.06 10^3/uL (0.00-0.03); Immature Granulocytes Pct Auto 0.5 % (0.0-0.5); Lymphocytes Absolute Auto 2.5 10^3/uL (1.2-3.8); Mean Corpuscular HGB Conc 32.2 g/dL (29.9-35.2); Mean Corpuscular Hemoglobin 28.2 pg (26.7-34.0); Mean Corpuscular Volume 87.8 fL (81.0-99.0); Platelet Count 345 10^3/uL (150-450); Red Blood Count 4.18 10^6/uL (4.20-5.40); White Blood Count 11.3 10^3/uL (4.0-11.0)
[2025-03-09 10:10] LABS: Alanine Aminotransferase 18 U/L (14-59); Albumin Globulin Ratio 0.8; Albumin Level 3.1 g/dL (3.4-5.0); Alkaline Phosphatase 62 U/L (46-116); Anion Gap 14.8; Aspartate Amino Transferase <5 U/L (15-37); Blood Urea Nitrogen 16.0 mg/dL (7.0-18.0); Calcium 8.8 mg/dL (8.5-10.1); Carbon Dioxide 24.9 mmol/L (21.0-32.0); Chloride 107 mmol/L (98-107); Estimated GFR (African America 39 (>=60 mL/min/1.73m^2); Estimated GFR (Non-African Ame 32 (>=60 mL/min/1.73m^2); Globulin 3.7 g/dL; Glucose 112 mg/dL (74-106); Potassium 3.7 mmol/L (3.5-5.1); Sodium 143 mmol/L (136-145); Total Protein 6.8 g/dL (6.4-8.2)
[2025-03-09] MEDS: 0.9 % SODIUM CHLORIDE 250 ML 20 ML IV (10:37)
[2025-03-09] MEDS: ACETAMINOPHEN 500 MG TABLET 1000 MG PO (10:47)
[2025-03-09] MEDS: DEXAMETHASONE SODIUM PHOSPHATE IV (10:48)
[2025-03-09] MEDS: [UNRECOGNIZED DRUG - OTHER] IV (10:48)
[2025-03-09] MEDS: DIPHENHYDRAMINE HCL IV (10:48)
[2025-03-09] MEDS: SODIUM CHLORIDE 0.9% IV (11:40)
[2025-03-09] MEDS: DARATUMUMAB IV (11:40)
--- NOTE | 2025-03-09 13:10 | PC.NURSE ---
1047: Pt. without c/o. Pre-meds initiated at this time. IV site remains clear. remains at chairside. 1140: Darzalex infusion initiated as ordered per titration. Pt. drowsy, denies c/o. 1220: Pt. resting quietly with eyes closed. Resps. even and non-labored. IV site clear.
--- NOTE | 2025-03-09 14:10 | PC.NURSE ---
1350: Pt. up to bathroom. Lunch tray ordered.
[2025-03-09 15:45] VITALS: BP 133/85; PULSE 87; TEMP 36.8; O2SAT 93
[2025-03-16 09:30] VITALS: BP 120/81; PULSE 79; TEMP 36.3; O2SAT 98
[2025-03-16 10:12] LABS: Hematocrit 36.3 % (36.0-48.0); Hemoglobin 11.7 g/dL (12.0-16.0); Immature Granulocytes Abs Auto 0.06 10^3/uL (0.00-0.03); Immature Granulocytes Pct Auto 0.5 % (0.0-0.5); Lymphocytes Absolute Auto 4.1 10^3/uL (1.2-3.8); Mean Corpuscular HGB Conc 32.2 g/dL (29.9-35.2); Mean Corpuscular Hemoglobin 28.4 pg (26.7-34.0); Mean Corpuscular Volume 88.1 fL (81.0-99.0); Platelet Count 302 10^3/uL (150-450); Red Blood Count 4.12 10^6/uL (4.20-5.40); White Blood Count 12.4 10^3/uL (4.0-11.0)
[2025-03-16 10:25] LABS: Alanine Aminotransferase 24 U/L (14-59); Albumin Globulin Ratio 0.8; Albumin Level 3.1 g/dL (3.4-5.0); Alkaline Phosphatase 54 U/L (46-116); Anion Gap 11.4; Aspartate Amino Transferase 13 U/L (15-37); Blood Urea Nitrogen 25.0 mg/dL (7.0-18.0); Calcium 8.7 mg/dL (8.5-10.1); Carbon Dioxide 30.7 mmol/L (21.0-32.0); Chloride 102 mmol/L (98-107); Estimated GFR (African America 46 (>=60 mL/min/1.73m^2); Estimated GFR (Non-African Ame 38 (>=60 mL/min/1.73m^2); Globulin 3.8 g/dL; Glucose 90 mg/dL (74-106); Potassium 4.1 mmol/L (3.5-5.1); Sodium 140 mmol/L (136-145); Total Protein 6.9 g/dL (6.4-8.2)
[2025-03-16 10:33] LABS: Thyroid Stimulating Hormone 7.795 uIU/mL (0.358-3.740)
[2025-03-16] MEDS: 0.9 % SODIUM CHLORIDE 250 ML 999 ML IV (10:55)
[2025-03-16] MEDS: ACETAMINOPHEN 500 MG TABLET 1000 MG PO (11:06)
[2025-03-16] MEDS: DIPHENHYDRAMINE HCL IV (11:07)
[2025-03-16] MEDS: DEXAMETHASONE SODIUM PHOSPHATE IV (11:07)
[2025-03-16] MEDS: [UNRECOGNIZED DRUG - OTHER] IV (11:07)
[2025-03-16] MEDS: SODIUM CHLORIDE 0.9% IV (11:41)
[2025-03-16] MEDS: DARATUMUMAB IV (11:41)
[2025-03-16] MEDS: 0.9 % SODIUM CHLORIDE 250 ML 1000 ML IV (13:21)
--- NOTE | 2025-03-16 14:44 | PC.NURSE ---
1010: Breakfast tray provided. Denies needs. 1055: 250cc NS initiated at 999cc/hr for hydration as ordered per Dr. Durham. Labs reviewed with pt. and , questions addressed. 1106: Pre-meds initiated at this time. IV site clear. Pt. without needs or c/o. 1141: IV Darzalex initiated at this time. Informed pt. able to increase rate of infusion with this dose due to tolerating past infusions without c/o. Pt. relays understanding. 1238: Dr. Durham to chairside for scheduled MD visit. 1320: IV Darzalex infused without s&s of adverse reaction. Second 250cc NS initiated to infuse at this time as ordered. 1340: IVF completed at this time VSS. IV d/c'd, pressure to site. D/c'd amb. to home with .
== END 2025-03-21 23:59 | disposition home or self-care (01) ==
LOC: HEMC 09:19
PROVIDERS: PCP Nurse Practitioner Family; Visit Provider Internal Medicine Hematology & Oncology
DX: Z51.12 Encounter for antineoplastic immunotherapy (principal); C90.00 Multiple myeloma not having achieved remission; D69.6 Thrombocytopenia, unspecified; D64.9 Anemia, unspecified; D50.9 Iron deficiency anemia, unspecified; N18.9 Chronic kidney disease, unspecified; G62.89 Other specified polyneuropathies; R77.9 Abnormality of plasma protein, unspecified; Z90.710 Acquired absence of both cervix and uterus; Z90.49 Acquired absence of other specified parts of digestive tract; Z98.51 Tubal ligation status; Z90.722 Acquired absence of ovaries, bilateral; I12.9 Hypertensive chronic kidney disease with stage 1 through stage 4 chronic kidney disease, or unspecified chronic kidney disease; R82.998 Other abnormal findings in urine
CPT/HCPCS: 36415; 80053; 81003; 82784; 82785; 83521; 84155; 84165; 84439; 84443; 85025; 86334; 87086; 96367; 96413; 96415; G0463; J1100; J1200; J9145

== ENCOUNTER 2025-04-20 08:49 | Outpatient (RCR) | payer MEDICARE, SELFPAY ==
[2025-03-23 09:28] VITALS: BP 114/76; PULSE 92; TEMP 36.3; O2SAT 96
[2025-03-23 09:43] LABS: Hematocrit 38.3 % (36.0-48.0); Hemoglobin 12.3 g/dL (12.0-16.0); Immature Granulocytes Abs Auto 0.03 10^3/uL (0.00-0.03); Immature Granulocytes Pct Auto 0.3 % (0.0-0.5); Lymphocytes Absolute Auto 2.2 10^3/uL (1.2-3.8); Mean Corpuscular HGB Conc 32.1 g/dL (29.9-35.2); Mean Corpuscular Hemoglobin 28.7 pg (26.7-34.0); Mean Corpuscular Volume 89.5 fL (81.0-99.0); Platelet Count 291 10^3/uL (150-450); Red Blood Count 4.28 10^6/uL (4.20-5.40); White Blood Count 10.2 10^3/uL (4.0-11.0)
--- NOTE | 2025-03-23 09:50 | PC.NURSE ---
0923: Pt. to [facility] for weekly oncology treatment. Accompanied by . Weight obtained. Seated in recliner. VSS. IV initiated without difficulty, pt. tolerated without c/o. Assessment completed. Breakfast tray ordered. Pillow and warm blanket provided.
[2025-03-23 10:13] LABS: Alanine Aminotransferase 23 U/L (14-59); Albumin Globulin Ratio 0.8; Albumin Level 3.0 g/dL (3.4-5.0); Alkaline Phosphatase 53 U/L (46-116); Anion Gap 13.0; Aspartate Amino Transferase 9 U/L (15-37); Blood Urea Nitrogen 24.0 mg/dL (7.0-18.0); Calcium 8.4 mg/dL (8.5-10.1); Carbon Dioxide 27.9 mmol/L (21.0-32.0); Chloride 105 mmol/L (98-107); Estimated GFR (African America 42 (>=60 mL/min/1.73m^2); Estimated GFR (Non-African Ame 34 (>=60 mL/min/1.73m^2); Globulin 3.6 g/dL; Glucose 99 mg/dL (74-106); Potassium 3.9 mmol/L (3.5-5.1); Sodium 142 mmol/L (136-145); Total Protein 6.6 g/dL (6.4-8.2)
[2025-03-23] MEDS: ACETAMINOPHEN 500 MG TABLET 1000 MG PO (10:49)
[2025-03-23] MEDS: DIPHENHYDRAMINE HCL IV (10:50)
[2025-03-23] MEDS: 0.9 % SODIUM CHLORIDE 250 ML 10 ML IV (10:50)
[2025-03-23] MEDS: DEXAMETHASONE SODIUM PHOSPHATE IV (10:50)
[2025-03-23] MEDS: [UNRECOGNIZED DRUG - OTHER] IV (10:50)
--- NOTE | 2025-03-23 10:55 | PC.NURSE ---
1049: Pre-meds initiated at this time. Pt. without c/o.
[2025-03-23] MEDS: DARATUMUMAB IV (11:46)
[2025-03-23] MEDS: SODIUM CHLORIDE 0.9% IV (11:46)
--- NOTE | 2025-03-23 11:55 | PC.NURSE ---
1146: IV Darzalex initiated at this time. Pt. up to bathroom to void. Denies c/o or needs.
[2025-03-23 13:40] VITALS: BP 115/72; PULSE 84; TEMP 36.6; O2SAT 98
[2025-03-30 09:35] VITALS: BP 120/78; PULSE 88; TEMP 36.3; O2SAT 95
[2025-03-30 09:48] LABS: Hematocrit 36.9 % (36.0-48.0); Hemoglobin 11.8 g/dL (12.0-16.0); Immature Granulocytes Abs Auto 0.01 10^3/uL (0.00-0.03); Immature Granulocytes Pct Auto 0.1 % (0.0-0.5); Lymphocytes Absolute Auto 1.9 10^3/uL (1.2-3.8); Mean Corpuscular HGB Conc 32.0 g/dL (29.9-35.2); Mean Corpuscular Hemoglobin 28.6 pg (26.7-34.0); Mean Corpuscular Volume 89.6 fL (81.0-99.0); Platelet Count 297 10^3/uL (150-450); Red Blood Count 4.12 10^6/uL (4.20-5.40); White Blood Count 6.8 10^3/uL (4.0-11.0)
[2025-03-30 10:05] LABS: Alanine Aminotransferase 18 U/L (14-59); Albumin Globulin Ratio 0.8; Albumin Level 3.0 g/dL (3.4-5.0); Alkaline Phosphatase 50 U/L (46-116); Anion Gap 12.9; Aspartate Amino Transferase 11 U/L (15-37); Blood Urea Nitrogen 20.0 mg/dL (7.0-18.0); Calcium 8.7 mg/dL (8.5-10.1); Carbon Dioxide 29.0 mmol/L (21.0-32.0); Chloride 103 mmol/L (98-107); Estimated GFR (African America 38 (>=60 mL/min/1.73m^2); Estimated GFR (Non-African Ame 32 (>=60 mL/min/1.73m^2); Globulin 3.7 g/dL; Glucose 82 mg/dL (74-106); Potassium 3.9 mmol/L (3.5-5.1); Sodium 141 mmol/L (136-145); Total Protein 6.7 g/dL (6.4-8.2)
[2025-03-30] MEDS: ACETAMINOPHEN 500 MG TABLET 1000 MG PO (10:36)
[2025-03-30] MEDS: 0.9 % SODIUM CHLORIDE 250 ML 20 ML IV (10:37)
[2025-03-30] MEDS: DIPHENHYDRAMINE HCL IV (10:37)
[2025-03-30] MEDS: DEXAMETHASONE SODIUM PHOSPHATE IV (10:37)
[2025-03-30] MEDS: [UNRECOGNIZED DRUG - OTHER] IV (10:37)
[2025-03-30] MEDS: SODIUM CHLORIDE 0.9% IV (11:11)
[2025-03-30] MEDS: DARATUMUMAB IV (11:11)
[2025-03-30 12:47] VITALS: BP 108/72; PULSE 72; TEMP 36.4; O2SAT 92
--- NOTE | 2025-03-30 13:41 | PC.NURSE ---
1036: Pre-meds initiated at this time. Breakfast tray provided. 1111: IV Darzalex initiated as ordered. IV site clear. Pt. up to bathroom to void. 1130: Tolerating infusion without s&s of adverse reaction. Denies needs. 1215: Resting quietly with eyes closed. Resps even and non-labored. Appears to be without s&s of distress or discomfort. 1247: Darzalex infusion completed at this time. Pt. without c/o. VSS. IV d/c'd, pressure to site. Awaiting to speak with Dr. Durham for scheduled MD visit. 1305: Dr. Durham to chairside for MD visit. 1330: Pt. d/c'd amb. to home with .
[2025-04-06 09:29] VITALS: BP 115/80; PULSE 92; TEMP 35.7; O2SAT 96
[2025-04-06 09:52] LABS: Hematocrit 36.1 % (36.0-48.0); Hemoglobin 11.7 g/dL (12.0-16.0); Immature Granulocytes Abs Auto 0.02 10^3/uL (0.00-0.03); Immature Granulocytes Pct Auto 0.3 % (0.0-0.5); Lymphocytes Absolute Auto 2.0 10^3/uL (1.2-3.8); Mean Corpuscular HGB Conc 32.4 g/dL (29.9-35.2); Mean Corpuscular Hemoglobin 29.1 pg (26.7-34.0); Mean Corpuscular Volume 89.8 fL (81.0-99.0); Platelet Count 335 10^3/uL (150-450); Red Blood Count 4.02 10^6/uL (4.20-5.40); White Blood Count 7.0 10^3/uL (4.0-11.0)
[2025-04-06 10:08] LABS: Alanine Aminotransferase 21 U/L (14-59); Albumin Globulin Ratio 0.8; Albumin Level 3.2 g/dL (3.4-5.0); Alkaline Phosphatase 53 U/L (46-116); Anion Gap 14.1; Aspartate Amino Transferase 8 U/L (15-37); Blood Urea Nitrogen 21.0 mg/dL (7.0-18.0); Calcium 9.1 mg/dL (8.5-10.1); Carbon Dioxide 28.7 mmol/L (21.0-32.0); Chloride 102 mmol/L (98-107); Estimated GFR (African America 36 (>=60 mL/min/1.73m^2); Estimated GFR (Non-African Ame 30 (>=60 mL/min/1.73m^2); Globulin 3.8 g/dL; Glucose 92 mg/dL (74-106); Potassium 3.8 mmol/L (3.5-5.1); Sodium 141 mmol/L (136-145); Total Protein 7.0 g/dL (6.4-8.2)
[2025-04-06] MEDS: ACETAMINOPHEN 500 MG TABLET 1000 MG PO (10:39)
[2025-04-06] MEDS: 0.9 % SODIUM CHLORIDE 250 ML 20 ML IV (10:39)
[2025-04-06] MEDS: DIPHENHYDRAMINE HCL IV (10:40)
[2025-04-06] MEDS: DEXAMETHASONE SODIUM PHOSPHATE IV (10:40)
[2025-04-06] MEDS: [UNRECOGNIZED DRUG - OTHER] IV (10:40)
--- NOTE | 2025-04-06 10:44 | PC.NURSE ---
1039: Pre-meds initiated at this time. Pt. without needs or c/o.
[2025-04-06] MEDS: SODIUM CHLORIDE 0.9% IV (11:24)
[2025-04-06] MEDS: DARATUMUMAB IV (11:24)
--- NOTE | 2025-04-06 11:31 | PC.NURSE ---
1124: Daratumumab IV initiated at this time. Pt. without needs or c/o
[2025-04-06 13:05] VITALS: BP 119/73; PULSE 77; TEMP 36.6; O2SAT 92
[2025-04-07 15:09] LABS: Albumin 3.0 g/dL (2.9-4.4); Alpha-1-Globulin 0.3 g/dL (0.0-0.4); Alpha-2-Globulin 1.0 g/dL (0.4-1.0); Free Kappa Lt Chains,S 10.9 mg/L (3.3-19.4); Free Lambda Lt Chains,S 9.2 mg/L (5.7-26.3); Gamma Globulin 0.5 g/dL (0.4-1.8); Immunoglobulin A, Qn, Serum 651 mg/dL (64-422); Kappa/Lambda Ratio,S 1.18 (0.26-1.65)
[2025-04-20 08:50] VITALS: BP 131/84; PULSE 98; TEMP 36.5
[2025-04-20 09:16] LABS: Hematocrit 37.0 % (36.0-48.0); Hemoglobin 11.9 g/dL (12.0-16.0); Immature Granulocytes Abs Auto 0.01 10^3/uL (0.00-0.03); Immature Granulocytes Pct Auto 0.1 % (0.0-0.5); Lymphocytes Absolute Auto 2.2 10^3/uL (1.2-3.8); Mean Corpuscular HGB Conc 32.2 g/dL (29.9-35.2); Mean Corpuscular Hemoglobin 29.2 pg (26.7-34.0); Mean Corpuscular Volume 90.9 fL (81.0-99.0); Platelet Count 288 10^3/uL (150-450); Red Blood Count 4.07 10^6/uL (4.20-5.40); White Blood Count 7.3 10^3/uL (4.0-11.0)
--- NOTE | 2025-04-20 09:26 | PC.NURSE ---
Breakfast tray provided.
[2025-04-20 09:29] LABS: Alanine Aminotransferase 19 U/L (14-59); Albumin Globulin Ratio 0.8; Albumin Level 3.2 g/dL (3.4-5.0); Alkaline Phosphatase 51 U/L (46-116); Anion Gap 15.2; Aspartate Amino Transferase 10 U/L (15-37); Blood Urea Nitrogen 15.0 mg/dL (7.0-18.0); Calcium 9.2 mg/dL (8.5-10.1); Carbon Dioxide 26.6 mmol/L (21.0-32.0); Chloride 104 mmol/L (98-107); Estimated GFR (African America 40 (>=60 mL/min/1.73m^2); Estimated GFR (Non-African Ame 33 (>=60 mL/min/1.73m^2); Globulin 3.8 g/dL; Glucose 108 mg/dL (74-106); Potassium 3.8 mmol/L (3.5-5.1); Sodium 142 mmol/L (136-145); Total Protein 7.0 g/dL (6.4-8.2)
[2025-04-20] MEDS: ACETAMINOPHEN 500 MG TABLET 1000 MG PO (10:07)
[2025-04-20] MEDS: DEXAMETHASONE SODIUM PHOSPHATE IV (10:08)
[2025-04-20] MEDS: DIPHENHYDRAMINE HCL IV (10:08)
[2025-04-20] MEDS: 0.9 % SODIUM CHLORIDE 250 ML 20 ML IV (10:08)
[2025-04-20] MEDS: [UNRECOGNIZED DRUG - OTHER] IV (10:08)
[2025-04-20] MEDS: DARATUMUMAB IV (10:50)
[2025-04-20] MEDS: SODIUM CHLORIDE 0.9% IV (10:50)
--- NOTE | 2025-04-20 11:04 | PC.NURSE ---
1035: Dr. Durham to chairside for MD visit
[2025-04-20 12:40] VITALS: BP 133/78; PULSE 82; TEMP 36.5; O2SAT 97
--- NOTE | 2025-04-20 12:59 | PC.NURSE ---
1007: Pre-infusion meds initiated at this time. 1050: IV Darzalex infusion initiated as ordered. Pt. denies needs or c/o. Attempts to nap. at chairside.
== END 2025-04-21 23:59 | disposition home or self-care (01) ==
LOC: HEMC 08:49
PROVIDERS: PCP Nurse Practitioner Family; Visit Provider Internal Medicine Hematology & Oncology
DX: Z51.12 Encounter for antineoplastic immunotherapy (principal); C90.00 Multiple myeloma not having achieved remission; D69.6 Thrombocytopenia, unspecified; D64.9 Anemia, unspecified; D50.9 Iron deficiency anemia, unspecified; N18.9 Chronic kidney disease, unspecified; G62.89 Other specified polyneuropathies; R77.9 Abnormality of plasma protein, unspecified; G62.9 Polyneuropathy, unspecified
CPT/HCPCS: 36415; 80053; 82784; 82785; 83521; 84155; 84165; 85025; 86334; 96367; 96413; 96415; G0463; J1100; J1200; J9145